=== PATIENT | male | born 1955 | race African-American/Black ===

== ENCOUNTER 2016-10-20 10:40 | Inpatient (IN) | payer MEDICARE, OTHER ==
[2016-10-20] VITALS (9 sets, daily range): BP systolic 136–194; BP diastolic 74–106; PULSE 50–74; RESP 14–20; TEMP 97.3–98.1; O2SAT 98–100
[~2016-10-20] VITALS: Ht 170.2 cm; Wt 67.2 kg
[~2016-10-20 10:40] MED LIST: FLAG500T PO; NIFE1TAB85 PO
--- NOTE | 2016-10-20 11:14 | PD ---
HPI Chief Complaint: Abnormal Results Time Seen by Provider: 11:14 Travel History International Travel<30 days: No Contact w/Intl Traveler<30days: No Traveled to known affect area: No History of Present Illness HPI 61-year-old male with history of hepatitis C, hypertension, renal disease, presents to the emergency department at the instruction of the "staff at the dialysis center" for evaluation. Patient is not currently a dialysis patient. States he has been increasingly tired lately and "just not right." He denies any recent illnesses, fever, chills. Denies a nausea or vomiting. Is concerned that he may have "prostate swelling." Continues to smoke a pack of tobacco cigarettes over 4 days. Reports marijuana use. Denies any alcohol consumption. Patient has no other symptoms to report at this time. PFSH Past Medical History Arthritis: Yes Anxiety: Yes Depression: Yes Heart Rhythm Problems: No Cancer: No Cardiovascular Problems: Yes (HTN) Chest Pain: Yes COPD: Yes Hepatitis: Yes (C) Hypertension: Yes Implanted Vascular Access Dvce: Yes Tetanus Vaccination: < 5 Years Influenza Vaccination: No ?: Not Past Surgical History AICD: No Arteriovenous Shunt: No Cardiac Surgery: No Joint Replacement: No Social History Alcohol Use: No Tobacco Use: Yes (4 CIGS/DAY) Substance Use: Yes (majuanna) Allergies-Medications (Allergen,Severity, Reaction): Coded Allergies: Aspirin (Unverified Allergy, Unknown, 06/02/16) HEP C Reported Meds & Prescriptions Reported Meds & Active Scripts Active Reported Hydrochlorothiazide 12.5 Mg Cap 12.5 Mg PO DAILY Ranitidine (Ranitidine HCl) 150 Mg Cap 150 Mg PO BID Atenolol 50 Mg Tab 50 Mg PO DAILY Clonidine (Clonidine HCl) 0.3 Mg Tab 0.3 Mg PO TID Review of Systems Except as stated in HPI: all other systems reviewed are Neg Physical Exam Narrative GENERAL: Well-nourished male patient, lying in bed, in no acute distress SKIN: Warm and dry. HEAD: Atraumatic. Normocephalic. EYES: Pupils equal and round. No scleral icterus. No injection or drainage. ENT: No nasal bleeding or discharge. Mucous membranes pink and moist. NECK: Trachea midline. No JVD. CARDIOVASCULAR: Regular rate and rhythm. No murmur appreciated. RESPIRATORY: No accessory muscle use. Clear to auscultation. Breath sounds equal bilaterally. GASTROINTESTINAL: Abdomen soft, non-tender, nondistended. Hepatic and splenic margins not palpable. MUSCULOSKELETAL: No obvious deformities. No clubbing. No cyanosis. No edema. NEUROLOGICAL: Awake and alert. No obvious cranial nerve deficits. Motor grossly within normal limits. Normal speech. PSYCHIATRIC: Appropriate mood and affect; insight and judgment normal. Data Data Last Documented VS Vital Signs Date Time Temp Pulse Resp B/P Pulse Ox O2 Delivery O2 Flow Rate FiO2 10/20/16 11:16 100 Room Air 10/20/16 10:57 67 18 146/92 10/20/16 10:43 98.1 Orders Electrocardiogram (10/20/16 11:12) Complete Blood Count With Diff (10/20/16 11:12) Comprehensive Metabolic Panel (10/20/16 11:12) Magnesium (Mg) (10/20/16 11:12) Prothrombin Time / Inr (Pt) (10/20/16 11:12) Act Partial Throm Time (Ptt) (10/20/16 11:12) Chest, Single Ap (10/20/16 11:12) Ecg Monitoring (10/20/16 11:12) Bilateral Bp Monitoring (10/20/16 11:12) Iv Access Insert/Monitor (10/20/16 11:12) Oximetry (10/20/16 11:12) Oxygen Administration (10/20/16 11:12) Sodium Chloride 0.9% Flush (Ns Flush) (10/20/16 11:15) Labs Laboratory Tests Test 10/20/16 11:16 White Blood Count 7.5 TH/MM3 Red Blood Count 4.14 MIL/MM3 Hemoglobin 12.8 GM/DL Hematocrit 39.1 % Mean Corpuscular Volume 94.6 FL Mean Corpuscular Hemoglobin 31.0 PG Mean Corpuscular Hemoglobin 32.8 % Concent Red Cell Distribution Width 14.4 % Platelet Count 185 TH/MM3 Mean Platelet Volume 8.7 FL Neutrophils (%) (Auto) 50.9 % Lymphocytes (%) (Auto) 33.7 % Monocytes (%) (Auto) 10.1 % Eosinophils (%) (Auto) 4.6 % Basophils (%) (Auto) 0.7 % Neutrophils # (Auto) 3.8 TH/MM3 Lymphocytes # (Auto) 2.5 TH/MM3 Monocytes # (Auto) 0.8 TH/MM3 Eosinophils # (Auto) 0.3 TH/MM3 Basophils # (Auto) 0.1 TH/MM3 CBC Comment DIFF FINAL Differential Comment Prothrombin Time 11.4 SEC Prothromb Time International 1.0 RATIO Ratio Activated Partial 29.9 SEC Thromboplast Time Sodium Level 139 MEQ/L Potassium Level 5.5 MEQ/L Chloride Level 110 MEQ/L Carbon Dioxide Level 17.2 MEQ/L Anion Gap 12 MEQ/L Blood Urea Nitrogen 100 MG/DL Creatinine 7.78 MG/DL Estimat Glomerular Filtration 9 ML/MIN Rate Random Glucose 105 MG/DL Calcium Level 8.5 MG/DL Magnesium Level 2.8 MG/DL Total Bilirubin 0.3 MG/DL Aspartate Amino Transf 36 U/L (AST/SGOT) Alanine Aminotransferase 36 U/L (ALT/SGPT) Alkaline Phosphatase 83 U/L Total Protein 8.1 GM/DL Albumin 3.8 GM/DL MDM Medical Decision Making Medical Screen Exam Complete: Yes Emergency Medical Condition: Yes Medical Record Reviewed: Yes Differential Diagnosis Electrolyte abnormality versus renal failure versus viral syndrome Narrative Course 61-year-old male presents to emergency department for evaluation. Patient appears without distress. His vital signs are stable. CBC is without acute concern. CMP is with creatinine of 7.78, BUN of 100, potassium is 5.5. I discussed the patient my attending physician Dr. Amaral. Patient will be admitted to the [facility] resident service. Diagnosis Primary Impression: Renal failure (ARF), acute on chronic Additional Impression: Hyperkalemia Condition: Stable DaxBridget BURDEN Oct 20, 2016 11:14
[2016-10-20] MEDS ORDERED: SODIUM CHLORIDE 0.9% FLUSH 5 ML FLUSH IVF PRN ×2 (11:15→17:30)
[2016-10-20] MEDS ORDERED: RANI150C PO (11:19)
[2016-10-20] MEDS ORDERED: ATEN50TA PO (11:19)
[2016-10-20] MEDS ORDERED: CLON0.3T PO (11:19)
[2016-10-20] MEDS ORDERED: HYDR12.57 PO (11:19)
[2016-10-20 11:35] LABS: AUTOMATED NEUTROPHIL # 3.8 TH/MM3 (1.8-7.7); BASOPHIL # 0.1 TH/MM3 (0-0.2); BASOPHIL % 0.7 % (0.0-2.0); EOSINOPHIL # 0.3 TH/MM3 (0-0.4); EOSINOPHIL % 4.6 % (0.0-4.0); HEMATOCRIT 39.1 % (39.0-51.0); HEMO FLAGS DIFF FINAL; LYMPH % 33.7 % (9.0-44.0); LYMPHOCYTE # 2.5 TH/MM3 (1.0-4.8); MEAN CELL VOLUME 94.6 FL (80.0-100.0); MEAN CORPUSCULAR HGB CONC 32.8 % (32.0-36.0); MONO % 10.1 % (0.0-8.0); NEUT % 50.9 % (16.0-70.0); PLATELET COUNT 185 TH/MM3 (150-450); RED BLOOD COUNT 4.14 MIL/MM3 (4.50-5.90); RED CELL DISTRIBUTION WIDTH 14.4 % (11.6-17.2); WHITE BLOOD COUNT 7.5 TH/MM3 (4.0-11.0)
[2016-10-20 11:40] LABS: APTT (PATIENT) 29.9 SEC (24.3-30.1); PROTHROMBIN TIME - PATIENT 11.4 SEC (9.8-11.6)
[2016-10-20 11:51] LABS: ANION GAP 12 MEQ/L (5-15); AST (GOT) 36 U/L (15-37); BICARBONATE 17.2 MEQ/L (21.0-32.0); BLOOD UREA NITROGEN 100 MG/DL (7-18); CHLORIDE 110 MEQ/L (98-107); GLOMERULAR FILTRATION RATE 9 ML/MIN (>89); MAGNESIUM 2.8 MG/DL (1.5-2.5); POTASSIUM 5.5 MEQ/L (3.5-5.1); SODIUM (NA) 139 MEQ/L (136-145)
[2016-10-20 11:54] LABS: ALKALINE PHOSPHATASE 83 U/L (45-117); ALT (GPT) 36 U/L (12-78); TOTAL BILIRUBIN ADULT 0.3 MG/DL (0.2-1.0)
--- NOTE | 2016-10-20 12:31 | RADRPT ---
EXAM DATE/TIME: 10/20/2016 11:47 [facility] COMPARISON: CHEST SINGLE AP, June 02, 2016, 13:45. INDICATIONS : Abnormal labs. Dizziness. MEDICAL HISTORY : Chronic obstructive pulmonary disease. Cardiovascular disease. SURGICAL HISTORY : None. ENCOUNTER: Initial ACUITY: 1 day PAIN SCORE: 0/10 LOCATION: Bilateral chest FINDINGS: A single view of the chest demonstrates minimal left perihilar air space disease characteristic of at electasis. There is no significant consolidation. There is no evidence of congestion. Heart and mediastinal structures appear normal. CONCLUSION: Mild left perihilar atelectasis with no other evidence of acute process. Alan Berry MD on October 20, 2016 at 12:28 Board Certified Radiologist. This report was verified electronically.
--- NOTE | 2016-10-20 13:46 | HHI.HP ---
HPI Service Family Medicine Primary Care Physician No Primary Care Physician Admission Diagnosis Acute on chronic renal failure; hyperkalemia Diagnoses: International Travel<30 Days: No Contact w/Intl Traveler<30days: No Known Affected Area: No History of Present Illness James is a 61-year-old black male, with a past medical history of uncontrolled hypertension, chronic kidney disease, and hepatitis C, presenting with 2 weeks of generalized malaise and weakness. He was seen today at a dialysis center and was urged to come to the emergency department, particularly regarding his worsening creatinine and elevated blood pressures. History of present illness: For the past 2 weeks he has been having High blood pressure as checked by his divinity professor. He does report an intermittent headache, that is relieved with Tylenol extra strength. In addition to dealing with elevated blood pressures, he has also been noticing that over the past 2 weeks he has been having dizziness that has got worse over the past 48 hours. He also reports nausea, vomiting, and not able to hold down solid foods until a couple of days ago. Approximately one week ago he also suffered from diarrhea persistently, however this has resolved. He reports losing 10-15 pounds over the past several weeks. (Kiko Vazquez MD R2) Review of Systems Constitutional: COMPLAINS OF: Fatigue, DENIES: Fever Eyes: COMPLAINS OF: Blurred vision, DENIES: Diplopia Respiratory: DENIES: Cough, Wheezing, Shortness of breath Cardiovascular: DENIES: Chest pain, Palpitations Gastrointestinal: DENIES: Abdominal pain, Bloody stools Genitourinary: DENIES: Urgency, Penile Discharge, Testicular Pain Musculoskeletal: COMPLAINS OF: Joint pain (knee pain Right side), DENIES: Muscle aches Integumentary: COMPLAINS OF: Pruritus Neurologic: COMPLAINS OF: Headache, DENIES: Seizures, Speech Problems, Tremor (Kiko Vazquez MD R2) Past Family Social History Past Medical History Hepatitis C, diagnoses in 2001, ? sexual transmission HTN dx in 2003 Chronic Kidney Disease Denies diabetes, denies OR, denies CVA, denies Seizures. Past Surgical History PSHx: Knee Left, traumatic (Kiko Vazquez MD R2) Allergies: Coded Allergies: Aspirin (Unverified Allergy, Unknown, 06/02/16) HEP C Family History FHx: Mother - , Diabetes, CAD / Heart disease - at age 78 y/o Father - , 101 y/o denies medical illness Siblings: no medical problems, denies cancer in his family. Social History Live in [place], born and raised Tobacco use - 1 pack every 3-4 days, since he was a teenager EtOH: 40 years ago, but since has stopped. Cocaine use - 20-30s, denies IVD use. Disabled back injury (Kiko Vazquez MD R2) Physical Exam Vital Signs Vital Signs Date Time Temp Pulse Resp B/P Pulse Ox O2 Delivery O2 Flow Rate FiO2 10/20/16 11:16 100 Room Air 10/20/16 11:16 100 Room Air 10/20/16 10:57 67 18 146/92 100 Room Air 10/20/16 10:57 67 18 100 Room Air 10/20/16 10:43 98.1 74 14 136/74 98 Physical Exam GENERAL: NAD, resting comfortably SKIN: No rashes, ecchymoses or lesions. HEAD: Atraumatic. Normocephalic. EYES: Pupils equal round and reactive. ENT: Nose without bleeding, purulent drainage or septal hematoma. NECK: Trachea midline. No JVD or lymphadenopathy. CARDIOVASCULAR: Regular rate and rhythm without murmurs, gallops, or rubs. RESPIRATORY: Clear to auscultation. GASTROINTESTINAL: Abdomen soft, non-tender, nondistended. MUSCULOSKELETAL: Extremities without clubbing, cyanosis, or edema. NEUROLOGICAL: Awake and alert. Cranial nerves II through XII intact. Motor and sensory grossly within normal limits. Laboratory Laboratory Tests Test 10/20/16 11:16 White Blood Count 7.5 Red Blood Count 4.14 Hemoglobin 12.8 Hematocrit 39.1 Mean Corpuscular Volume 94.6 Mean Corpuscular Hemoglobin 31.0 Mean Corpuscular Hemoglobin 32.8 Concent Red Cell Distribution Width 14.4 Platelet Count 185 Mean Platelet Volume 8.7 Neutrophils (%) (Auto) 50.9 Lymphocytes (%) (Auto) 33.7 Monocytes (%) (Auto) 10.1 Eosinophils (%) (Auto) 4.6 Basophils (%) (Auto) 0.7 Neutrophils # (Auto) 3.8 Lymphocytes # (Auto) 2.5 Monocytes # (Auto) 0.8 Eosinophils # (Auto) 0.3 Basophils # (Auto) 0.1 CBC Comment DIFF FINAL Differential Comment Prothrombin Time 11.4 Prothromb Time International 1.0 Ratio Activated Partial 29.9 Thromboplast Time Sodium Level 139 Potassium Level 5.5 Chloride Level 110 Carbon Dioxide Level 17.2 Anion Gap 12 Blood Urea Nitrogen 100 Creatinine 7.78 Estimat Glomerular Filtration 9 Rate Random Glucose 105 Calcium Level 8.5 Magnesium Level 2.8 Total Bilirubin 0.3 Aspartate Amino Transf 36 (AST/SGOT) Alanine Aminotransferase 36 (ALT/SGPT) Alkaline Phosphatase 83 Total Protein 8.1 Albumin 3.8 (Kiko Vazquez MD R2) Result Diagram: 10/20/16 1116 10/20/16 1116 Septic Shock Reassessment Heart: Regular rate and rhythm Lungs: Clear Skin: Warm Peripheral Pulses: Weak Right Radial Weak Left Radial (Kiko Vazquez MD R2) Assessment and Plan Assessment and Plan Mr. Ramirez is a pleasant 61-year-old black male, presenting with 2 weeks of generalized fatigue, elevated blood pressures, as well as worsening kidney function. He presented to the [place] emergency department at the recommendation of his divinity professor. Problem #1: Acute on chronic kidney failure. Creatinine on admission was 7.78, BUN of 100. Likely secondary to worsening nephrosclerosis as a result of his hypertension. May also be related to his chronic hepatitis C infection. Urinalysis did not show any signs of infection. Plan as follows: -Consult nephrology, appreciate their assistance. Patient may need hemodialysis. -Ultrasound of the KUB -Monitor ins and outs -Check hepatitis C RNA titer levels and genotype Problem #2: Uncontrolled hypertension Blood pressure of 179/106 on admission. -Continue with clonidine 0.3 mg 3 times a day, atenolol 50 mg daily, amlodipine 5 mg twice a day. -Hydralazine 10 mg by mouth when necessary systolic greater than 160, diastolic greater than 100. Problem #3: Hyperkalemia Potassium was 5.5 on admission. No EKG changes noted. Grossly unchanged since EKG in May 2016. No peak T waves or QRS widening. -We'll give 10 units of human regular insulin, with dextrose 50% 50 mL IV push, and 1 g of calcium gluconate to stabilize cardiac membrane. -Repeat BMP and EKG in 6 hours. Problem #4: Fluids electrolytes nutrition. -Fluids at the discretion of nephrology. -Electrolytes: Recheck BMP in the a.m. -Nutrition: Renal Diet. sdw Dr. Adilene Shaver Code Status Code. (Kiko Vazquez MD R2) Attending Attestation The patient has been seen and examined. The chart and all resident notes have been reviewed. I agree that inpatient care is appropriate and that a two midnight stay is expected for the reasons documented in the resident history and physical. I have discussed this with the resident and certify the resident s order for inpatient admission. (Shannan Shaver MD) Problem List: (1) GERD (gastroesophageal reflux disease) Status: Chronic (2) Hyperkalemia Status: Acute (3) HTN (hypertension) Status: Chronic (4) Renal failure (ARF), acute on chronic Status: Acute (Kiko Vazquez MD R2) Physician Certification 2 Midnight Certification Type: Admission for Inpatient Services Order for Inpatient Services The services are ordered in accordance with Medicare regulations or non- Medicare payer requirements, as applicable. In the case of services not specified as inpatient-only, they are appropriately provided as inpatient services in accordance with the 2-midnight benchmark. Estimated LOS (days): 3 3 days is the estimated time the patient will need to remain in the hospital, assuming treatment plan goals are met and no additional complications. Post-Hospital Plan: Home (Kiko Vazquez MD R2) Kiko Vazquez MD R2 Oct 20, 2016 13:45 Shannan Shaver MD Oct 20, 2016 21:21
[2016-10-20] MEDS ORDERED: INSULIN HUMAN REGULAR 1,000 UNITS/10 ML VIAL IV PUSH ONE (14:00)
[2016-10-20] MEDS ORDERED: DEXTROSE 50% IN WATER 50 ML VIAL(D50) IV PUSH ONE (14:00)
[2016-10-20] MEDS ORDERED: CALCIUM GLUCONATE 10% 1 GM/10 ML VIAL IV ONE (14:00)
[2016-10-20] MEDS ORDERED: hydrALAZINE HCL 10 MG TAB PO PRN (14:15)
--- NOTE | 2016-10-20 14:54 | PD.CONS ---
HPI Service Nephrology Consult Requested By Reason for Consult MANA on CKD Primary Care Physician No Primary Care Physician History of Present Illness This is a 61 y/o AAM pt who used to follow with Dr. Boogie of nephrology. Known CKD 5, he has not been started on dialysis as of now. He has not had renal follow up for years, has seen him in [facility]. He came in for fatigue, syncopal episode that sounds like he may have been orthostatic. He has had nausea and vomiting for several days, diarrhea the previous week. He is not demonstrating fluid overload. Labs on arrival with K 5.5, C02 17, Cr 7.78, GFR 9 , BUN 100. In 2015 his creatinine was 6.63 that improved to 5.53 at discharge. He is still making urine, it is pale yellow. We were consulted for renal management. Review of Systems Constitutional: COMPLAINS OF: Fatigue, Weight loss, DENIES: Fever Respiratory: COMPLAINS OF: Shortness of breath, DENIES: Cough Cardiovascular: DENIES: Chest pain, Lower Extremity Edema Past Family Social History Allergies: Coded Allergies: Aspirin (Unverified Allergy, Unknown, 06/02/16) HEP C Past Medical History HTN CKD 5, creatinine 5.53 in 2015 Hep C, untreated Past Surgical History l knee Reported Medications Hydrochlorothiazide 12.5 Mg Cap 12.5 Mg PO DAILY Ranitidine (Ranitidine HCl) 150 Mg Cap 150 Mg PO BID Atenolol 50 Mg Tab 50 Mg PO DAILY Clonidine (Clonidine HCl) 0.3 Mg Tab 0.3 Mg PO TID Active Ordered Medications Current Medications Medications (Trade) Dose Ordered Sig/Issac Route Start Time Stop Time Status Last Admin (NS Flush) 2 ml UNSCH PRN IVF 10/20/16 11:15 (Tenormin) 50 mg DAILY@18 PO 10/20/16 18:00 (Catapres) 0.3 mg TID PO 10/20/16 13:45 (Pepcid) 10 mg BID PO 10/20/16 21:00 (Apresoline) 10 mg Q6HR PRN PO 10/20/16 14:15 (Norvasc) 5 mg DAILY PO 10/21/16 09:00 Family History no hx of renal disorders Social History active smoker for several decades former heavy ETOH former cocaine use lives locally with family full code Physical Exam Vital Signs Vital Signs Date Time Temp Pulse Resp B/P Pulse Ox O2 Delivery O2 Flow Rate FiO2 10/20/16 14:00 50 18 179/106 100 Room Air 10/20/16 13:00 52 18 169/101 100 Room Air 10/20/16 11:16 100 Room Air 10/20/16 11:16 100 Room Air 10/20/16 10:57 67 18 146/92 100 Room Air 10/20/16 10:57 67 18 100 Room Air 10/20/16 10:43 98.1 74 14 136/74 98 Physical Exam male, awake/alert/oriented lungs clear S1/S2, regular rate/rhythm Abdomen soft, normal bowel sounds Extremities, no edema distal pulses intact Laboratory Laboratory Tests Test 10/20/16 11:16 White Blood Count 7.5 Red Blood Count 4.14 Hemoglobin 12.8 Hematocrit 39.1 Mean Corpuscular Volume 94.6 Mean Corpuscular Hemoglobin 31.0 Mean Corpuscular Hemoglobin 32.8 Concent Red Cell Distribution Width 14.4 Platelet Count 185 Mean Platelet Volume 8.7 Neutrophils (%) (Auto) 50.9 Lymphocytes (%) (Auto) 33.7 Monocytes (%) (Auto) 10.1 Eosinophils (%) (Auto) 4.6 Basophils (%) (Auto) 0.7 Neutrophils # (Auto) 3.8 Lymphocytes # (Auto) 2.5 Monocytes # (Auto) 0.8 Eosinophils # (Auto) 0.3 Basophils # (Auto) 0.1 CBC Comment DIFF FINAL Differential Comment Prothrombin Time 11.4 Prothromb Time International 1.0 Ratio Activated Partial 29.9 Thromboplast Time Sodium Level 139 Potassium Level 5.5 Chloride Level 110 Carbon Dioxide Level 17.2 Anion Gap 12 Blood Urea Nitrogen 100 Creatinine 7.78 Estimat Glomerular Filtration 9 Rate Random Glucose 105 Calcium Level 8.5 Magnesium Level 2.8 Total Bilirubin 0.3 Aspartate Amino Transf 36 (AST/SGOT) Alanine Aminotransferase 36 (ALT/SGPT) Alkaline Phosphatase 83 Total Protein 8.1 Albumin 3.8 Result Diagram: 10/20/16 1116 10/20/16 1116 Assessment and Plan Problem List: (1) Renal failure (ARF), acute on chronic Plan: Known advanced renal dysfunction, CKD 5 since 2014 he will need dialysis soon, but not emergently I think he has MANA due to dehydration, give IVF of 1/4 NS with 75 mEq sodium bicarbonate (65cc/hr) and reevaluate in the a.m. hyperkalemia treatment as below he is not fluid overloaded non oliguric, send UA for analysis obtain renal US avoid nephrotoxins renal panel in am he is open to the idea of dialysis, we discussed the indications (2) Hyperkalemia Plan: ordered calcium, insulin, dextrose follow up metabolic profile (3) HTN (hypertension) Plan: ordered medications, titrate to effectiveness Cristy Chang Oct 20, 2016 14:54
[2016-10-20] MEDS: cloNIDine HCL 0.3 MG TAB PO SCH ×2 (14:56→18:09)
[2016-10-20 15:27] LABS: BLOOD, URINE NEG (NEG); GLUCOSE,URINE NEG (NEG); KETONE, URINE NEG (NEG); NITRITE,URINE NEG (NEG); PH, URINE 5.5 (5.0-8.5); URINE COLOR LIGHT-YELLOW (YELLW/STRAW)
[2016-10-20 15:37] LABS: COMMENT (UR) CULT NOT INDICATED; CULTURE IF INDICATED CULT NOT INDICATED
[2016-10-20] MEDS: SODIUM CHLORIDE 23.4% INJ 38.5 MEQ, SODIUM BICARBONATE 8.4% INJ 75 MEQ in WATER STERILE... IV SCH (16:00)
--- NOTE | 2016-10-20 17:14 | PD.CONS ---
HPI Service Nephrology Consult Requested By Dr. Nuñez Reason for Consult ESRD Primary Care Physician No Primary Care Physician History of Present Illness 61 year old with CKD, Hypertension who has called our office as he was feeling sick, nausea, lack of appetite, he was directed to come to the Hospital as he was having uremic symptoms, he has high BUN/Creatinine, he has not been compliant and his blood pressure is high, he do not follow with diet and has a potassium of 5.5, creatinine 7.78 Review of Systems Constitutional: COMPLAINS OF: Fatigue Gastrointestinal: COMPLAINS OF: Nausea, Anorexia Past Family Social History Allergies: Coded Allergies: Aspirin (Unverified Allergy, Unknown, 06/02/16) HEP C Past Medical History Hypertension CKD Hepatitis C Work related injury right little finger with partial amputation Right back injury and disability Past Surgical History right hand surgery Reported Medications Reported Meds & Active Scripts Active Reported Ranitidine (Ranitidine HCl) 150 Mg Cap 150 Mg PO BID Atenolol 50 Mg Tab 50 Mg PO DAILY Clonidine (Clonidine HCl) 0.3 Mg Tab 0.3 Mg PO TID Active Ordered Medications Current Medications Medications (Trade) Dose Ordered Sig/Issac Route Start Time Stop Time Status Last Admin (NS Flush) 2 ml UNSCH PRN IVF 10/20/16 11:15 (Tenormin) 50 mg DAILY@18 PO 10/20/16 18:00 (Catapres) 0.3 mg TID PO 10/20/16 13:45 10/20/16 14:56 (Pepcid) 10 mg BID PO 10/20/16 21:00 (Apresoline) 10 mg Q6HR PRN PO 10/20/16 14:15 Amlodipine Besylate 5 mg 5 mg DAILY PO 10/21/16 09:00 (Sodium Chloride 23.4% Inj/Sodium Bicarbonate 8.4% Inj/Sterile Water For Inj) 1,084.625 ml @ 65 mls/hr [id number] IV 10/20/16 16:00 Family History Hypertension positive Social History smokes 1PPD every 3 to 4 days, denies ETOH Physical Exam Vital Signs Vital Signs Date Time Temp Pulse Resp B/P Pulse Ox O2 Delivery O2 Flow Rate FiO2 10/20/16 16:00 97.5 62 18 194/94 99 10/20/16 15:30 56 18 177/85 100 Room Air 10/20/16 14:00 50 18 179/106 100 Room Air 10/20/16 13:00 52 18 169/101 100 Room Air 10/20/16 11:16 100 Room Air 10/20/16 11:16 100 Room Air 10/20/16 10:57 67 18 146/92 100 Room Air 10/20/16 10:57 67 18 100 Room Air 10/20/16 10:43 98.1 74 14 136/74 98 Physical Exam GENERAL: Well-nourished, well-developed patient. SKIN: Warm and dry. HEAD: Normocephalic. EYES: No scleral icterus. No injection or drainage. NECK: Supple, trachea midline. No JVD or lymphadenopathy. CARDIOVASCULAR: Regular rate and rhythm without murmurs, gallops, or rubs. RESPIRATORY: Breath sounds equal bilaterally. No accessory muscle use. GASTROINTESTINAL: Abdomen soft, non-tender, nondistended. EXTREMITIES: No cyanosis, or edema. NEUROLOGICAL: Awake, alert, and oriented x 3. Non-focal. Laboratory Laboratory Tests Test 10/20/16 10/20/16 11:16 15:11 White Blood Count 7.5 Red Blood Count 4.14 Hemoglobin 12.8 Hematocrit 39.1 Mean Corpuscular Volume 94.6 Mean Corpuscular Hemoglobin 31.0 Mean Corpuscular Hemoglobin 32.8 Concent Red Cell Distribution Width 14.4 Platelet Count 185 Mean Platelet Volume 8.7 Neutrophils (%) (Auto) 50.9 Lymphocytes (%) (Auto) 33.7 Monocytes (%) (Auto) 10.1 Eosinophils (%) (Auto) 4.6 Basophils (%) (Auto) 0.7 Neutrophils # (Auto) 3.8 Lymphocytes # (Auto) 2.5 Monocytes # (Auto) 0.8 Eosinophils # (Auto) 0.3 Basophils # (Auto) 0.1 CBC Comment DIFF FINAL Differential Comment Prothrombin Time 11.4 Prothromb Time International 1.0 Ratio Activated Partial 29.9 Thromboplast Time Sodium Level 139 Potassium Level 5.5 Chloride Level 110 Carbon Dioxide Level 17.2 Anion Gap 12 Blood Urea Nitrogen 100 Creatinine 7.78 Estimat Glomerular Filtration 9 Rate Random Glucose 105 Calcium Level 8.5 Magnesium Level 2.8 Total Bilirubin 0.3 Aspartate Amino Transf 36 (AST/SGOT) Alanine Aminotransferase 36 (ALT/SGPT) Alkaline Phosphatase 83 Total Protein 8.1 Albumin 3.8 Urine Color LIGHT-YELLOW Urine Turbidity CLEAR Urine pH 5.5 Urine Specific [place] 1.010 Urine Protein 30 Urine Glucose (UA) NEG Urine Ketones NEG Urine Occult Blood NEG Urine Nitrite NEG Urine Bilirubin NEG Urine Urobilinogen LESS THAN 2.0 Urine Leukocyte Esterase NEG Urine RBC LESS THAN 1 Urine WBC 1 Microscopic Urinalysis Comment CULT NOT INDICATED Result Diagram: 10/20/16 1116 10/20/16 1116 Assessment and Plan Problem List: (1) Renal failure (ARF), acute on chronic Plan: Known advanced renal dysfunction, CKD 5 since 2014 he will need dialysis explained hemodialysis and PD he is agreeable to proceed will ask for Permcath and PD catheter (2) Hyperkalemia Plan: ordered calcium, insulin, dextrose follow up metabolic profile (3) HTN (hypertension) Plan: ordered medications, titrate to effectiveness Ned Sosa MD Oct 20, 2016 17:14
[2016-10-20] MEDS ORDERED: SODIUM CHLOR 0.9% 1000 ML INJ 1,000 ML IV PRN ×3 (17:20)
[2016-10-20] MEDS ORDERED: HEPARIN SODIUM - IV 10,000 UNITS/10 ML VIAL IVF PRN (17:30)
[2016-10-20] MEDS ORDERED: MANNITOL 12.5 GM/50 ML VIAL IV PRN (17:30)
[2016-10-20] MEDS ORDERED: cloNIDine HCL 0.1 MG TAB PO PRN (17:30)
[2016-10-20] MEDS ORDERED: ALBUMIN HUMAN 25% 25 GM/100 ML BAGP IV PRN (17:30)
[2016-10-20] MEDS ORDERED: ACETAMINOPHEN 325 MG TAB PO PRN (17:30)
[2016-10-20] MEDS ORDERED: NITROGLYCERIN 0.4 MG SL 25 TABS/BTL SL PRN (17:30)
[2016-10-20] MEDS ORDERED: ONDANSETRON HCL 4 MG/2 ML VIAL IV PRN (17:30)
[2016-10-20] MEDS ORDERED: diphenhydrAMINE HCL 25 MG CAP PO PRN (17:30)
[2016-10-20] MEDS ORDERED: GELATIN 12 MM/7 MM FOAM TOP PRN (17:30)
[2016-10-20] MEDS: ATENOLOL 50 MG TAB PO SCH (18:09)
[2016-10-20] MEDS: amLODIPine BESYLATE 5 MG TAB PO SCH ×2 (18:11→20:45)
--- NOTE | 2016-10-20 19:12 | HHI.FPPN ---
Subjective Subjective Patient seen and examined. Case reviewed and discussed Please refer to resident H&P for further details regarding HPI, ROS, PMH, SurgHx , FH and SocHx In summary, patient is a 61yoM with a history of kidney disease, HTN, Hep C presenting after a 1-2 week history of uncontrolled BP, increasing fatigue, and syncope at home. Patient also complains of diarrhea, nausea and vomiting which started about a week ago, but are now resolved. Patient reports that he had previously followed with Dr. Boogie, but hasn't seen him for several years. He is seen in his ED room, denies chest pain, shortness of breath. [facility] Objective Objective Last Impressions Chest X-Ray 10/20/16 1112 Signed Impressions: Service Date/Time: Thursday, October 20, 2016 11:47 - CONCLUSION: Mild left perihilar atelectasis with no other evidence of acute process. Alan Berry MD Laboratory Tests - Abnormals Test 10/20/16 10/20/16 11:16 15:11 Red Blood Count 4.14 MIL/MM3 Hemoglobin 12.8 GM/DL Monocytes (%) (Auto) 10.1 % Eosinophils (%) (Auto) 4.6 % Potassium Level 5.5 MEQ/L Chloride Level 110 MEQ/L Carbon Dioxide Level 17.2 MEQ/L Blood Urea Nitrogen 100 MG/DL Creatinine 7.78 MG/DL Estimat Glomerular Filtration 9 ML/MIN Rate Magnesium Level 2.8 MG/DL Urine Protein 30 mg/dL Vital Signs 10/20/16 10/20/16 10/20/16 10/20/16 10:43 10:57 10:57 11:16 Temp 98.1 Pulse 74 67 67 Resp 18 B/P 136/74 146/92 Pulse Ox 98 100 100 100 O2 Delivery Room Air Room Air Room Air 10/20/16 10/20/16 10/20/16 10/20/16 11:16 13:00 14:00 15:30 Pulse 52 50 56 Resp 18 18 18 B/P 169/101 179/106 177/85 Pulse Ox 100 100 100 100 O2 Delivery Room Air Room Air Room Air Room Air 10/20/16 10/20/16 16:00 18:03 Temp 97.5 Pulse 62 Resp 18 B/P 194/94 Pulse Ox 99 99 O2 Delivery Nasal Cannula O2 Flow Rate 2.00 Physical exam GENERAL: Thin male. NAD, sitting in bed SKIN: Warm and dry. No rashes. HEAD: Normocephalic. AT EYES: No scleral icterus. No injection or drainage. ENT: OP clear. MM slightly dry NECK: Supple, trachea midline. No JVD or lymphadenopathy. CARDIOVASCULAR: Regular rate and rhythm without audible murmurs, gallops, or rubs. RESPIRATORY: Breath sounds equal and clear to auscultation bilaterally. No accessory muscle use. GASTROINTESTINAL: Abdomen soft, non-tender, nondistended. MUSCULOSKELETAL: No cyanosis, or edema. No calf tenderness BACK: Nontender without obvious deformity. No CVA tenderness. NEURO: Awake and alert. Normal speech. CN grossly intact. MAEW. Assessment Assessment 61yoM admitted with: Acute on chronic kidney disease, CKD stage 5/end-stage Hyperkalemia Hep C HTN, uncontrolled Non-adherence Syncope PLAN PLAN Renal consult- appreciate coordination of dialysis Monitor BMP, electrolytes Check mag, phos Syncopal work-up with 2D echo, carotids Titrate anti-hypertensives Strict Is/Os Hep profile with RNA quant, genotyping Resume home meds as appropriate Patient seen and examined. Case reviewed and discussed Agree with plan of care as discussed with me and documented in the resident note. Shannna Shaver MD Oct 20, 2016 19:12
[2016-10-20 20:05] LABS: BICARBONATE 18.5 MEQ/L (21.0-32.0)
[2016-10-20] MEDS: FAMOTIDINE 20 MG TAB PO SCH (20:45)
--- NOTE | 2016-10-20 21:15 | RADRPT ---
EXAM DATE/TIME: 10/20/2016 18:55 [facility] COMPARISON: No previous studies available for comparison. INDICATIONS : Increased BUN/creatinine. MEDICAL HISTORY : Hypertension. Chronic obstructive pulmonary disease. Arthritis. Chest pain. Hep C. Pruritis. Dyspnea. Depression. Anxiety. Substance use. SURGICAL HISTORY : Orthopedic surgery, left knee. Blood transfusions. ENCOUNTER: Initial ACUITY: 1 day PAIN SCORE: 0/10 LOCATION: Bilateral flank MEASUREMENTS: RIGHT KIDNEY: 7.3 x 4.4 x 3.9 cm LEFT KIDNEY: 7.3 x 4.6 x 4.4 cm FINDINGS: RIGHT KIDNEY: The right kidney is small and atrophic in appearance with diffuse increased echogenicity. There is a small cyst in the central kidney measuring 6 x 5 x 5 mm. There is no solid mass, calculi or obstructi on. LEFT KIDNEY: The left kidney is small and atrophic in appearance with diffuse increased echogenicity. There is a s mall cyst centrally located measuring 1.9-1.9-1.7 cm. There is no solid mass, calculi or obstruction. BLADDER: Within normal limits given the degree of distension. At the upper limits of normal in size. CONCLUSION: The kidneys are small and increased in echogenicity consistent with medical renal dis ease. There is no hydronephrosis. There are small cysts. Saud Kowalski MD on October 20, 2016 at 21:12 Board Certified Radiologist. This report was verified electronically.
[2016-10-20] MEDS ORDERED: HEPARIN SODIUM - SQ 10,000 UNITS/ML VIAL SQ SCH (21:30)
[2016-10-20] MEDS ORDERED: cloNIDine HCL 0.1 MG TAB PO SCH (22:00)
[2016-10-21] VITALS (14 sets, daily range): BP systolic 112–151; BP diastolic 66–88; PULSE 54–68; RESP 16–18; TEMP 97.6–98.4; O2SAT 93–100
[2016-10-21] MEDS ORDERED: ceFAZolin 2 GM PREMIX 50 ML IV SCH (07:45)
[2016-10-21] MEDS ORDERED: VANCOMYCIN INJ 1,000 MG in SODIUM CHLOR 0.9% 250 ML INJ 250 ML IV SCH (07:45)
[2016-10-21] MEDS ORDERED: amLODIPine BESYLATE 5 MG TAB PO SCH (09:00)
[2016-10-21] MEDS ORDERED: HYDROCHLOROTHIAZIDE 12.5 MG CAP PO SCH (09:00)
[2016-10-21] MEDS: cloNIDine HCL 0.3 MG TAB PO SCH ×3 (09:06→19:16)
[2016-10-21] MEDS: FAMOTIDINE 20 MG TAB PO SCH ×2 (09:06→21:01)
[2016-10-21] MEDS: amLODIPine BESYLATE 5 MG TAB PO SCH ×2 (09:06→21:01)
[2016-10-21] MEDS: SODIUM CHLORIDE 23.4% INJ 38.5 MEQ, SODIUM BICARBONATE 8.4% INJ 75 MEQ in WATER STERILE... IV SCH (09:08)
[2016-10-21 09:30] LABS: BICARBONATE 17.1 MEQ/L (21.0-32.0); POTASSIUM 4.9 MEQ/L (3.5-5.1)
[2016-10-21 10:09] LABS: HEMATOCRIT 34.8 % (39.0-51.0); MEAN CORPUSCULAR HEMOGLOBIN 30.8 PG (27.0-34.0); MEAN CORPUSCULAR HGB CONC 33.1 % (32.0-36.0); PLATELET COUNT 155 TH/MM3 (150-450); RED BLOOD COUNT 3.74 MIL/MM3 (4.50-5.90); RED CELL DISTRIBUTION WIDTH 13.6 % (11.6-17.2); WHITE BLOOD COUNT 6.2 TH/MM3 (4.0-11.0)
[2016-10-21 10:16] LABS: HEMO FLAGS AUTO DIFF
--- NOTE | 2016-10-21 10:42 | HHI.FPPN ---
Subjective Remarks Patient states that he feels better today. He no longer has weakness and has been out of bed with no fall. No dizziness, h/a, sob. Good urine output. ( Katheryn Wells MD) Objective Vitals Vital Signs Date Time Temp Pulse Resp B/P Pulse Ox O2 Delivery O2 Flow Rate FiO2 10/21/16 09:59 Room Air 10/21/16 08:00 98.2 65 18 147/88 100 10/21/16 04:00 98.4 67 18 115/75 100 10/21/16 03:13 54 10/21/16 00:00 97.7 66 18 120/69 99 10/20/16 20:45 Room Air 10/20/16 20:00 97.3 57 20 183/92 100 160/100 10/20/16 18:03 99 Nasal Cannula 2.00 10/20/16 17:15 Room Air 10/20/16 16:00 97.5 62 18 194/94 99 10/20/16 15:30 56 18 177/85 100 Room Air 10/20/16 14:00 50 18 179/106 100 Room Air 10/20/16 13:00 52 18 169/101 100 Room Air 10/20/16 11:16 100 Room Air 10/20/16 11:16 100 Room Air 10/20/16 10:57 67 18 146/92 100 Room Air 10/20/16 10:57 67 18 100 Room Air 10/20/16 10:43 98.1 74 14 136/74 98 I/O 10/20/16 10/20/16 10/20/16 10/21/16 10/21/16 10/21/16 07:00 15:00 23:00 07:00 15:00 23:00 Intake Total 240 ml 240 ml Balance 240 ml 240 ml Intake Oral 240 ml 240 ml # Voids 1 2 # Bowel Movements 0 0 (Katheryn Wells MD) Result Diagram: 10/21/16 0950 10/21/16 0804 Objective Remarks GENERAL: AA male, in NAD. SKIN: Warm and dry. HEAD: Atraumatic. Normocephalic. EYES: Pupils equal and round. No scleral icterus. No injection or drainage. ENT: No nasal bleeding or discharge. Mucous membranes pink and moist. NECK: Trachea midline. No JVD. CARDIOVASCULAR: Regular rate and rhythm. RESPIRATORY: No accessory muscle use. Clear to auscultation. Breath sounds equal bilaterally. GASTROINTESTINAL: Abdomen soft, non-tender, nondistended. Hepatic and splenic margins not palpable. MUSCULOSKELETAL: Extremities without clubbing, cyanosis, or edema. R 5th digit amputated. NEUROLOGICAL: Awake and alert. No obvious cranial nerve deficits. Motor grossly within normal limits. Five out of 5 muscle strength in the arms and legs. Normal speech. PSYCHIATRIC: Appropriate mood and affect; insight and judgment normal. (Katheryn Wells MD) Urinary Catheter: No (Katheryn Wells MD) Vascular Central Line Catheter: No (Katheryn Wells MD) A/P Assessment and Plan Mr. Ramirez is a pleasant 61-year-old black male, presenting with 2 weeks of generalized fatigue, elevated blood pressures, as well as worsening kidney function. 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 NPO Problem #1: Acute on chronic kidney failure. GFR on admission 9, unchanged. Likely secondary to worsening nephrosclerosis as a result of his hypertension. May also be related to his chronic hepatitis C infection. Urinalysis did not show any signs of infection. -Consult nephrology, appreciate their assistance. Hemodialysis explained to patient. Patient to have catheter placed today -Ultrasound of the KUB: small and echogenic consistent with medical renal disease -Monitor ins and outs -Check hepatitis C RNA titer levels and genotype Problem #2: Uncontrolled hypertension Blood pressure of 179/106 on admission. Now wnl. Concern for cardiovascular cause of falls prior to hospitalization. -Continue with clonidine 0.3 mg 3 times a day, atenolol 50 mg daily, amlodipine 5 mg twice a day. -Hydralazine 10 mg by mouth when necessary systolic greater than 160, diastolic greater than 100. -Echocardiogram -US Carotids Problem #3: Hyperkalemia. Resolved. Potassium was 5.5 on admission. Now wnl. Problem #4: Fluids electrolytes nutrition. -Fluids at the discretion of nephrology. -Electrolytes: Recheck BMP in the a.m. -Nutrition: Renal Diet. sdw Drs. Adilene Wells, Taylor, and Chhaya Discharge Planning pending set up for outpt dialysis (Katheryn Wells MD) Attending Attestation Patient seen and examined. Case reviewed and discussed. Agree with plan of care as discussed with me and documented in the resident note. (Shannan Shaver MD) Problem List: (1) GERD (gastroesophageal reflux disease) Status: Chronic (2) Hyperkalemia Status: Acute (3) HTN (hypertension) Status: Chronic (4) Renal failure (ARF), acute on chronic Status: Acute (Katheryn Wells MD) Katheryn Wells MD Oct 21, 2016 10:42 Shannan Shaver MD Oct 23, 2016 17:40
[2016-10-21 11:49] LABS: BASOPHILS 1 % (0-2); EOSINOPHILS 3 % (0-4); NEUTROPHIL # MANUAL DIFF 3.5 TH/MM3 (1.8-7.7); PLATELET ESTIMATE SMEAR NORMAL (NORMAL); PLATELET MORPHOLOGY NORMAL (NORMAL); POLYS (SEG NEUTROPHILS) 56 % (16-70); WBC DIFF SAMPLE 100
[2016-10-21 11:50] LABS: SCAN/DIFF FINAL DIFF MANUAL
[2016-10-21] MEDS ORDERED: MIDAZOLAM HCL 5 MG/5 ML VIAL ONE (13:35)
[2016-10-21] MEDS ORDERED: fentaNYL CITRATE 250 MCG/5 ML AMP ONE (13:35)
[2016-10-21] MEDS ORDERED: LIDOCAINE 1%/EPINEPHrine 1:100,000 SOLN 20 ML VIAL ONE (13:43)
--- NOTE | 2016-10-21 13:49 | PD.CONS ---
cc: Trey Willis MD HPI Service General surgery Consult Requested By Dr. Sosa Reason for Consult Peritoneal dialysis catheter placement Primary Care Physician No Primary Care Physician History of Present Illness This is a 61 year old male who has had chronic kidney disease for many years which has now progressed to end stage now in need of hemodialysis. Nephrology was consulted and discussed options of traditional hemodialysis vs peritoneal dialysis. The patient has decided that peritoneal dialysis will be the best option for him. A General Surgery consultation has been requested for placement of peritoneal dialysis catheter. Review of Systems Constitutional: COMPLAINS OF: Change in appetite, DENIES: Fatigue, Fever Endocrine: DENIES: Polydipsia, Polyuria, Polyphagia Eyes: DENIES: Blurred vision, Diplopia Ears, nose, mouth, throat: DENIES: Hearing loss, Vertigo Respiratory: DENIES: Apneas, Cough, Snoring Cardiovascular: DENIES: Chest pain, Palpitations Gastrointestinal: COMPLAINS OF: Nausea, DENIES: Abdominal pain Genitourinary: DENIES: Dysuria Musculoskeletal: COMPLAINS OF: Muscle aches Integumentary: DENIES: Abnormal pigmentation Hematologic/lymphatic: DENIES: Bruising Immunologic/allergic: DENIES: Eczema Neurologic: DENIES: Headache, Localized weakness Psychiatric: DENIES: Confusion, Mood changes, Depression Past Family Social History Past Medical History CKD Hypertension Hepatitis C Past Surgical History Orthopedic surgery on left knee Reported Medications See Chart Allergies: Coded Allergies: Aspirin (Unverified Allergy, Unknown, 06/02/16) HEP C Active Ordered Medications Current Medications Medications (Trade) Dose Ordered Sig/Issac Route Start Time Stop Time Status Last Admin (NS Flush) 2 ml UNSCH PRN IVF 10/20/16 11:15 (Tenormin) 50 mg DAILY@18 PO 10/20/16 18:00 10/20/16 18:09 (Catapres) 0.3 mg TID PO 10/20/16 13:45 10/21/16 11:48 (Pepcid) 10 mg BID PO 10/20/16 21:00 10/21/16 09:06 Hydralazine HCl 10 mg 10 mg Q6HR PRN PO 10/20/16 14:15 10/20/16 20:45 (Sodium Chloride 23.4% Inj/Sodium Bicarbonate 8.4% Inj/Sterile Water For Inj) 1,084.625 ml @ 65 mls/hr [id number] IV 10/20/16 16:00 10/21/16 09:08 Amlodipine Besylate 5 mg 5 mg BID PO 10/20/16 18:30 10/21/16 09:06 (NS 1000 ml Inj) 1,000 ml @ 0 mls/hr Q0M PRN IV 10/20/16 17:20 Heparin Sodium (Porcine) 8000 units 8,000 units UNSCH PRN IVF 10/20/16 17:30 Sodium Chloride 1,000 ml @ 200 mls/hr Q5H PRN IV 10/20/16 17:20 (NS 1000 ml Inj) 1,000 ml @ 0 mls/hr Q0M PRN IV 10/20/16 17:20 (Mannitol Inj) 12.5 gm UNSCH PRN IV 10/20/16 17:30 (Albumin 25% Inj) 25 gm UNSCH PRN IV 10/20/16 17:30 (NS Flush) 5 ml UNSCH PRN IVF 10/20/16 17:30 (Heparin Inj) UNSCH PRN .XX 10/20/16 17:30 (Gentamicin (Dialysis) Inj) 20 mg UNSCH PRN IV 10/20/16 17:30 (Zofran Inj) 4 mg UNSCH PRN IV 10/20/16 17:30 (Tylenol) 650 mg UNSCH PRN PO 10/20/16 17:30 (Benadryl) 25 mg UNSCH PRN PO 10/20/16 17:30 (Nitrostat Sl) 0.4 mg UNSCH PRN SL 10/20/16 17:30 (Catapres) 0.1 mg UNSCH PRN PO 10/20/16 17:30 (Gelfoam 12 Mm/7 Mm Top) 1 foam UNSCH PRN TOP 10/20/16 17:30 (Heparin Inj) 5,000 units Q12HR SQ 10/20/16 21:30 Hold 10/20/16 23:06 Family History Noncontributory Social History + Smoking ---1 pack every 3-4 days Denies ETOH use--- prior use <40 years ago Denies illicit drug use Physical Exam Vital Signs Vital Signs Date Time Temp Pulse Resp B/P Pulse Ox O2 Delivery O2 Flow Rate FiO2 10/21/16 09:59 Room Air 10/21/16 08:00 98.2 65 18 147/88 100 10/21/16 04:00 98.4 67 18 115/75 100 10/21/16 03:13 54 10/21/16 00:00 97.7 66 18 120/69 99 10/20/16 20:45 Room Air 10/20/16 20:00 97.3 57 20 183/92 100 160/100 10/20/16 18:03 99 Nasal Cannula 2.00 10/20/16 17:15 Room Air 10/20/16 16:00 97.5 62 18 194/94 99 10/20/16 15:30 56 18 177/85 100 Room Air 10/20/16 14:00 50 18 179/106 100 Room Air Physical Exam GENERAL: Pleasant 61 year old male resting in bed SKIN: Warm and dry. HEAD: Atraumatic. Normocephalic. EYES: Pupils equal and round. No scleral icterus. No injection or drainage. ENT: No nasal bleeding or discharge. Mucous membranes pink and moist. NECK: Trachea midline. CARDIOVASCULAR: Regular rate and rhythm. RESPIRATORY: No accessory muscle use. Clear to auscultation. Breath sounds equal bilaterally. GASTROINTESTINAL: Abdomen soft, non-tender, nondistended. No visible scars. MUSCULOSKELETAL: Extremities without clubbing, cyanosis, or edema. No obvious deformities. NEUROLOGICAL: Awake and alert. No obvious cranial nerve deficits. Motor grossly within normal limits. Five out of 5 muscle strength in the arms and legs. Normal speech. PSYCHIATRIC: Appropriate mood and affect; insight and judgment normal. Laboratory Laboratory Tests Test 10/20/16 10/20/16 10/21/16 10/21/16 15:11 18:46 08:04 09:50 Urine Color LIGHT-YELLOW Urine Turbidity CLEAR Urine pH 5.5 Urine Specific [place] 1.010 Urine Protein 30 Urine Glucose (UA) NEG Urine Ketones NEG Urine Occult Blood NEG Urine Nitrite NEG Urine Bilirubin NEG Urine Urobilinogen LESS THAN 2.0 Urine Leukocyte Esterase NEG Urine RBC LESS THAN 1 Urine WBC 1 Microscopic Urinalysis Comment CULT NOT INDICATED Sodium Level 138 138 Potassium Level 5.0 4.9 Chloride Level 110 110 Carbon Dioxide Level 18.5 17.1 Anion Gap 10 11 Blood Urea Nitrogen 103 101 Creatinine 7.86 7.40 Estimat Glomerular Filtration 8 9 Rate Random Glucose 130 98 Calcium Level 8.6 8.0 Hepatitis A IgM Antibody NEGATIVE Hepatitis B Surface Antigen NEGATIVE Hepatitis B Core IgM Antibody NEGATIVE Hepatitis C Antibody REACTIVE Phosphorus Level 5.7 White Blood Count 6.2 Red Blood Count 3.74 Hemoglobin 11.5 Hematocrit 34.8 Mean Corpuscular Volume 93.0 Mean Corpuscular Hemoglobin 30.8 Mean Corpuscular Hemoglobin 33.1 Concent Red Cell Distribution Width 13.6 Platelet Count 155 Mean Platelet Volume 8.5 Neutrophils (%) (Auto) Lymphocytes (%) (Auto) Monocytes (%) (Auto) Eosinophils (%) (Auto) Basophils (%) (Auto) Neutrophils # (Auto) Lymphocytes # (Auto) Monocytes # (Auto) Eosinophils # (Auto) Basophils # (Auto) CBC Comment AUTO DIFF Differential Total Cells 100 Counted Neutrophils % (Manual) 56 Lymphocytes % 31 Monocytes % 9 Eosinophils % 3 Basophils % 1 Neutrophils # (Manual) 3.5 Differential Comment FINAL DIFF MANUAL Platelet Estimate NORMAL Platelet Morphology Comment NORMAL Red Cell Morphology Comment NORMAL Result Diagram: 10/26/16 0655 10/26/16 0655 Assessment and Plan Assessment and Plan 61 year old male with CKD stage 4 now in need to hemodialysis; in need to placement of peritoneal dialysis catheter -s/p IR placing Permacath -HD started -Patient prefers to have PD cath placement done in the upcoming weeks -Will have him follow up in the office and arrange for PD cath to be placed at that time - clear for DC -Follow up with Dr. Willis Discussed Condition With Dr. Lazaro Ramirez Attending Statement kidney failure, in need of dialysis discussed with patient PD cath placement will plan for OR this admission Attestation The exam, history, and the medical decision-making described in the above note were completed with the assistance of the mid-level provider. I reviewed and agree with the findings presented. I attest that I had a [id number] encounter with the patient on the same day, and personally performed and documented my assessment and findings in the medical record. Keren Shen Oct 21, 2016 13:49 Trey Willis MD Oct 26, 2016 21:26
--- NOTE | 2016-10-21 14:10 | PD.RAD ---
Post Procedure Progress Note Pre Procedure Diagnosis: (1) Renal failure (ARF), acute on chronic Post Procedure Diagnosis: (1) Renal failure (ARF), acute on chronic Procedure Date: Oct 21, 2016 Supervising Radiologist: Satinder Khanna JR Proceduralist/Assist: Teresa Fisher, RT(R), Amie Wasserman RT(R)() Anesthesia: Conscious Sedation Plan of Activity Patient to Unit: ROPU Patient Condition: Good See PACS Report for procedural detail/treatment Central Venous Access Device Procedure 1 Right Internal Jugular Hemodialysis Catheter Tunneled Placement dual lumen German: 15 Findings: Permcath in good position and functions well. OK to use. Plan Remove suture at base of neck and holding catheter in place in 2-3 weeks. Jr Jey.,Satinder Sifuentes MD Oct 21, 2016 14:10
[2016-10-21] MEDS ORDERED: SODIUM CHLORIDE 0.9% FLUSH 5 ML FLUSH IVF PRN (14:15)
[2016-10-21] MEDS ORDERED: HEPARIN SODIUM - IV 10,000 UNITS/10 ML VIAL IVF PRN (14:15)
--- NOTE | 2016-10-21 14:36 | RADRPT ---
EXAM DATE/TIME: 10/21/2016 12:33 [facility] COMPARISON: No previous studies available for comparison. INDICATIONS : Patient with chronic kidney disease in need of permcath for dialysis. MEDICAL HISTORY : Chronic kidney disease HTN Hep C Right back injurty and disability SURGICAL HISTORY : Left knee, traumatic Right 5th digit partial amputation ENCOUNTER: Initial ACUITY: >1 year PAIN SCORE: 0/10 FLUORO TIME: 0.7 minutes IMAGE SERIES: 0 SEDATION TIME: 30 minutes ACCESS: Right internal jugular vein SEDATION: 1.) 1.5 mg midazolam (Versed) IV 2.) 75 mcg fentanyl (Sublimaze) IV Prophylactic antibiotics were administered with appropriate pre-procedure timing. Vancomycin within 2 hours of procedure, Ancef (or alternative) within 1 hour of procedure. DEVICE: 1. 15 Icelandic dual lumen 23 cm Abdalla II Plus catheter PROCEDURE : 1. Ultrasound-guided venipuncture. 2. PermaCath placement. 3. Conscious sedation with continuous EKG and oximetry monitoring. The risks, benefits and alternatives to the procedure were explained and verbal and written consent w as obtained. The site was prepped in sterile fashion. Full sterile technique was used, including ca p, mask, sterile gloves and gown and a large sterile sheet. Hand hygiene and 2% chlorhexidine and/or betadine/alcohol prep was utilized per protocol for cutaneous antisepsis. The skin and subcutaneous tissues were infiltrated with local anesthetic solution. With ultrasound and fluoroscopic guidance a dermatotomy was created over the prescribed vein. A micr opuncture set was used to access the targeted vein and serial dilatation was performed to accept the prescribed length catheter. A subcutaneous tunnel was created in a retrograde fashion the catheter w as pulled through the tunnel. The catheter was flushed and assembled and locked with heparin. The c atheter was sutured in place. Conscious sedation was performed with the prescribed dosages and duration as above in the presence of an independent trained radiology nurse to assist in the monitoring of the patient. EKG and oximetry remained stable throughout the procedure. The patient tolerated the procedure well and there were n o complications. The patient was sent to post anesthesia recovery in stable condition. CONCLUSION: Uncomplicated PermaCath placement as above. Satinder Khanna Jr., MD on October 21, 2016 at 14:31 Board Certified Radiologist. This report was verified electronically.
--- NOTE | 2016-10-21 17:34 | HHI.NPPN ---
Subjective History of Present Illness 61 year old with CKD 5 now has ESRD started on hemodialysis Review of Systems General Constitutional: Fatigue Objective Data Data 10/20/16 10/21/16 19:00 07:00 Intake Total 480 ml Balance 480 ml Intake Oral 480 ml # Voids 3 # Bowel Movements 0 Vital Signs Date Time Temp Pulse Resp B/P Pulse Ox O2 Delivery O2 Flow Rate FiO2 10/21/16 16:00 58 135/88 95 10/21/16 15:30 60 16 128/66 96 10/21/16 15:00 61 16 115/82 94 10/21/16 14:30 62 18 112/82 93 10/21/16 14:15 97.8 67 16 114/73 93 10/21/16 12:00 97.6 62 18 139/78 100 10/21/16 09:59 Room Air 10/21/16 08:00 98.2 65 18 147/88 100 10/21/16 04:00 98.4 67 18 115/75 100 10/21/16 03:13 54 10/21/16 00:00 97.7 66 18 120/69 99 10/20/16 20:45 Room Air 10/20/16 20:00 97.3 57 20 183/92 100 160/100 10/20/16 18:03 99 Nasal Cannula 2.00 -: 10/21/16 0950 10/21/16 0804 Physical Exam General Appearance: Well Developed, Well Nourished Eyes Eye Exam: Pupils Equal Neck Neck Exam: Neck Supple Pulmonary Resp Exam: Clear Bilaterally, Breath Sounds Equal Cardiology CV Exam: Regular, Good Perfusion Gastrointestinal/Abdomen GI Exam: Soft, Non-Tender, Bowel Sounds Present Integumentary Skin Exam: Clear Extremeties Extremities Exam: No Edema Neurologic Neuro Exam: Alert, Awake Assessment/Plan Problem List: (1) ESRD (end stage renal disease) Plan: he is seen during dialysis tolerating it well continue supportive care Tolerating it well next HD tomorrow Surgery to see him for PD catheter insertion start PhosLo check PTH/Vit D (2) Renal failure (ARF), acute on chronic Plan: Known advanced renal dysfunction, CKD 5 (3) Hyperkalemia Plan: resolved (4) HTN (hypertension) Plan: BP is better Ned Sosa MD Oct 21, 2016 17:33
[2016-10-21] MEDS: GENTAMICIN SULFATE (DIALYSIS USE ONLY) 20 MG/2 ML VIAL IV PRN (18:30)
[2016-10-21] MEDS: ATENOLOL 50 MG TAB PO SCH (19:17)
[2016-10-21] MEDS: CALCIUM ACETATE 667 MG CAP PO SCH (19:17)
[2016-10-21] MEDS ORDERED: ACETAMINOPHEN/HYDROcodone 325 MG/5 MG TAB PO PRN (21:00)
[2016-10-22] VITALS (10 sets, daily range): BP systolic 101–129; BP diastolic 68–84; PULSE 63–87; RESP 16–20; TEMP 98–99.1; O2SAT 98–100
[2016-10-22] MEDS: SODIUM CHLORIDE 23.4% INJ 38.5 MEQ, SODIUM BICARBONATE 8.4% INJ 75 MEQ in WATER STERILE... IV SCH ×2 (01:24→12:19)
--- NOTE | 2016-10-22 01:32 | RADRPT ---
EXAM DATE/TIME: 10/21/2016 23:18 [facility] COMPARISON: US CAROTID ARTERIES, October 31, 2014, 8:49. INDICATIONS : Weakness. MEDICAL HISTORY : Hypertension. Chronic obstructive pulmonary disease. Arthritis. Migraines. Chest pain. Hep C. Pruriti s. Renal failure. Dialysis. SURGICAL HISTORY : Orthopedic surgery, left knee. ENCOUNTER: Initial ACUITY: 1 day PAIN SCORE: 3/10 LOCATION: Bilateral neck PEAK SYSTOLIC VELOCITIES (cm/sec): ICA/CCA RATIO: Right: 0.8 Left: 0.8 ICA: Right: 75 Left: 59 CCA: Right: 91 Left: 76 ECA: Right: 104 Left: 101 VERTEBRAL: Right: 46 antegrade Left: 35 antegrade Elevated flow velocities and ICA/CCA ratios have been found to correlate with increased degrees of vessel stenosis, calculated as percentage of diameter relative to a normal segment of distal ICA/CCA FINDINGS: RIGHT CAROTID: No significant stenosis is visualized. The waveforms are within normal limits. LEFT CAROTID: No significant stenosis is visualized. The waveforms are within normal limits. VERTEBRAL ARTERIES: Antegrade flow is seen in both vertebral arteries. MISCELLANEOUS: None. CONCLUSION: Mild calcified and noncalcified plaque at the carotid bulbs. No evidence of hemodynamically significa nt carotid stenosis. Aunpam Antoine MD on October 22, 2016 at 1:30 Board Certified Radiologist. This report was verified electronically.
[2016-10-22 07:08] LABS: HEMATOCRIT 35.5 % (39.0-51.0); MEAN CELL VOLUME 91.4 FL (80.0-100.0); MEAN CORPUSCULAR HEMOGLOBIN 31.4 PG (27.0-34.0); MEAN CORPUSCULAR HGB CONC 34.3 % (32.0-36.0); PLATELET COUNT 158 TH/MM3 (150-450); RED BLOOD COUNT 3.88 MIL/MM3 (4.50-5.90); RED CELL DISTRIBUTION WIDTH 14.2 % (11.6-17.2); REVIEW FLAG FINAL; WHITE BLOOD COUNT 6.6 TH/MM3 (4.0-11.0)
[2016-10-22 07:35] LABS: BICARBONATE 24.7 MEQ/L (21.0-32.0); POTASSIUM 4.7 MEQ/L (3.5-5.1)
--- NOTE | 2016-10-22 07:36 | EKG ---
Date Performed: 10/20/2016 Time Performed: 11:22:55 PTAGE: 61 years EKG: SINUS BRADYCARDIA NONSPECIFIC T-WAVE ABNORMALITY BORDERLINE ECG Compared to the PREVIOUS TRACING sinus rate has slowed PREVIOUS TRACIN06/02/2016 13.44 DOCTOR: Saul Mohamud Interpretating Date/Time 10/22/2016 07:35:26
--- NOTE | 2016-10-22 07:36 | EKG ---
Date Performed: 10/20/2016 Time Performed: 21:59:06 PTAGE: 61 years EKG: Sinus rhythm NORMAL ECG Nonspecific ST wave changes Compared to the PREVIOUS TRACING sinus rate has increased PREVIOUS TRACIN10/20/2016 11.22 DOCTOR: Saul Mohamud Interpretating Date/Time 10/22/2016 07:35:57
[2016-10-22] MEDS: cloNIDine HCL 0.3 MG TAB PO SCH ×3 (09:00→16:56)
[2016-10-22] MEDS: CALCIUM ACETATE 667 MG CAP PO SCH ×3 (09:00→16:55)
[2016-10-22] MEDS: amLODIPine BESYLATE 5 MG TAB PO SCH ×2 (12:18→22:01)
[2016-10-22] MEDS: FAMOTIDINE 20 MG TAB PO SCH ×2 (12:18→22:02)
--- NOTE | 2016-10-22 13:58 | HHI.FPPN ---
Subjective Remarks Resting comfortably in bed today. Has received hemodialysis this morning. Denies any symptoms currently. He's been afebrile and vital signs have been stable. (Kiko Vazquez MD R2) Objective Vitals Vital Signs Date Time Temp Pulse Resp B/P Pulse Ox O2 Delivery O2 Flow Rate FiO2 10/22/16 09:52 68 10/22/16 09:01 Room Air 10/22/16 08:00 98.1 70 20 129/84 99 10/22/16 06:09 63 10/22/16 04:32 98.0 78 16 122/79 100 10/21/16 23:58 98.4 68 16 117/67 99 10/21/16 23:00 20 10/21/16 21:00 Room Air 10/21/16 20:45 98.0 67 16 151/66 100 10/21/16 18:20 95 21 10/21/16 16:00 58 135/88 95 10/21/16 15:30 60 16 128/66 96 10/21/16 15:00 61 16 115/82 94 10/21/16 14:30 62 18 112/82 93 10/21/16 14:15 97.8 67 16 114/73 93 I/O 10/21/16 10/21/16 10/21/16 10/22/16 10/22/16 10/22/16 07:00 15:00 23:00 07:00 15:00 23:00 Intake Total 240 ml 240 ml 2556 ml Output Total 2250 ml 100 ml Balance 240 ml -2010 ml 2456 ml Intake Oral 240 ml 240 ml 120 ml IV Total 2436 ml Output Urine Total 250 ml 100 ml Hemodialysis 2000 ml # Voids 2 1 # Bowel Movements 0 0 0 (Kiko Vazquez MD R2) Result Diagram: 10/22/1615 10/22/16 0615 Objective Remarks GENERAL: AA male, in NAD. SKIN: Warm and dry. HEAD: Atraumatic. Normocephalic. EYES: Pupils equal and round. No scleral icterus. No injection or drainage. ENT: No nasal bleeding or discharge. Mucous membranes pink and moist. NECK: Trachea midline. No JVD. CARDIOVASCULAR: Regular rate and rhythm. RESPIRATORY: No accessory muscle use. Clear to auscultation. Breath sounds equal bilaterally. GASTROINTESTINAL: Abdomen soft, non-tender, nondistended. Hepatic and splenic margins not palpable. MUSCULOSKELETAL: Extremities without clubbing, cyanosis, or edema. R 5th digit amputated. NEUROLOGICAL: Awake and alert. No obvious cranial nerve deficits. Motor grossly within normal limits. Five out of 5 muscle strength in the arms and legs. Normal speech. PSYCHIATRIC: Appropriate mood and affect; insight and judgment normal. (Kiko Vazquez MD R2) A/P Assessment and Plan Mr. Ramirez is a pleasant 61-year-old black male, presenting with 2 weeks of generalized fatigue, elevated blood pressures, as well as worsening kidney function. He presented to the [place] emergency department at the recommendation of his cheese grader. NPO Problem #1: Acute on chronic kidney failure. GFR on admission 9, unchanged. Likely secondary to worsening nephrosclerosis as a result of his hypertension. May also be related to his chronic hepatitis C infection. Urinalysis did not show any signs of infection. -Consult nephrology, appreciate their assistance. Hemodialysis explained to patient. Patient to have catheter placed today. -Planning for peritoneal hemodialysis, Gen. surgery consulted for port placement. -Ultrasound of the KUB: small and echogenic consistent with medical renal disease -Monitor ins and outs -Check hepatitis C RNA titer levels and genotype -Repeat BMP in the a.m. Problem #2: Uncontrolled hypertension Blood pressure of 179/106 on admission. Now wnl. Concern for cardiovascular cause of falls prior to hospitalization. -Continue with clonidine 0.3 mg 3 times a day, atenolol 50 mg daily, amlodipine 5 mg twice a day. -Hydralazine 10 mg by mouth when necessary systolic greater than 160, diastolic greater than 100. -Echocardiogram -US Carotids Problem #3: Hyperkalemia. Resolved. Potassium was 5.5 on admission. Now wnl. Problem #4: Fluids electrolytes nutrition. -Fluids at the discretion of nephrology. -Electrolytes: Recheck BMP in the a.m. -Nutrition: Renal Diet. serafin Shaver Discharge Planning pending set up for outpt dialysis (Kiko Vazquez MD R2) Attending Attestation Patient seen and examined. Case reviewed and discussed. Agree with plan of care as discussed with me and documented in the resident note. (Shannan Shaver MD) Problem List: (1) GERD (gastroesophageal reflux disease) Status: Chronic (2) Hyperkalemia Status: Acute (3) HTN (hypertension) Status: Chronic (4) Renal failure (ARF), acute on chronic Status: Acute (Kiko Vazquez MD R2) Kiko Vazquez MD R2 Oct 22, 2016 13:58 Shannan Shaver MD Oct 23, 2016 17:40
--- NOTE | 2016-10-22 14:05 | HHI.NPPN ---
Subjective History of Present Illness 61 year old with CKD 5 now has ESRD started on hemodialysis Review of Systems General Constitutional: Fatigue Objective Data Data 10/21/16 10/22/16 19:00 07:00 Intake Total 2796 ml Output Total 2350 ml Balance 446 ml Intake Oral 360 ml IV Total 2436 ml Output Urine Total 350 ml Hemodialysis 2000 ml # Voids 1 # Bowel Movements 0 Vital Signs Date Time Temp Pulse Resp B/P Pulse Ox O2 Delivery O2 Flow Rate FiO2 10/22/16 09:52 68 10/22/16 09:01 Room Air 10/22/16 08:00 98.1 70 20 129/84 99 10/22/16 06:09 63 10/22/16 04:32 98.0 78 16 122/79 100 10/21/16 23:58 98.4 68 16 117/67 99 10/21/16 23:00 20 10/21/16 21:00 Room Air 10/21/16 20:45 98.0 67 16 151/66 100 10/21/16 18:20 95 21 10/21/16 16:00 58 135/88 95 10/21/16 15:30 60 16 128/66 96 10/21/16 15:00 61 16 115/82 94 10/21/16 14:30 62 18 112/82 93 10/21/16 14:15 97.8 67 16 114/73 93 -: 10/22/16 0615 10/22/16 0615 Physical Exam General Appearance: Well Developed, Well Nourished Eyes Eye Exam: Pupils Equal Neck Neck Exam: Neck Supple Pulmonary Resp Exam: Clear Bilaterally, Breath Sounds Equal Cardiology CV Exam: Regular, Good Perfusion Gastrointestinal/Abdomen GI Exam: Soft, Non-Tender, Bowel Sounds Present Integumentary Skin Exam: Clear Extremeties Extremities Exam: No Edema Neurologic Neuro Exam: Alert, Awake Assessment/Plan Problem List: (1) ESRD (end stage renal disease) Plan: dialysis done earlier UF 1.7 L well continue supportive care Tolerating it well next HD Thursday Surgery to follow on PD catheter insertion start PhosLo PTH high Zemplar with HD/Vit D Low oral supplements dc bicarbonate (2) Renal failure (ARF), acute on chronic Plan: Known advanced renal dysfunction, CKD 5 (3) Hyperkalemia Plan: resolved (4) HTN (hypertension) Plan: BP is better Ned Sosa MD Oct 22, 2016 14:05
[2016-10-22] MEDS ORDERED: CHOLECALCIFEROL (VIT D3) 5000 UNIT CAP PO ONE (14:15)
[2016-10-22] MEDS: CHOLECALCIFEROL (VIT D3) 1000 UNIT TAB PO SCH (14:53)
[2016-10-22] MEDS: ATENOLOL 50 MG TAB PO SCH (16:57)
--- NOTE | 2016-10-22 17:33 | EC ---
Study Study Date:10/22/2016 STUDY CONCLUSIONS SUMMARY - Left ventricle: The cavity size was normal. Wall thickness was normal. Systolic function was normal. The estimated ejection fraction was 60%. Wall motion was normal; there were no regional wall motion abnormalities. - Aortic valve: Mild regurgitation. If LV function is below 40, please consider prescribing an ACEI or ARB or document rationale for non-use. PROCEDURE DATA STUDY STATUS: Elective. Procedure: Transthoracic echocardiography. Image quality was good. Scanning was performed from the parasternal, apical, and subcostal acoustic windows. Study completion: The patient tolerated the procedure well. Transthoracic echocardiography. M-mode, complete 2D, complete spectral Doppler, and color Doppler. Height: Height: 67in. Weight: Weight: 147.7lb. Body mass index: BMI: 23.2kg/m^2. Body surface area: BSA: 1.78m^2. Patient status: Inpatient. CARDIAC ANATOMY LEFT VENTRICLE: The cavity size was normal. Wall thickness was normal. Systolic function was normal. The estimated ejection fraction was 60%. Wall motion was normal; there were no regional wall motion abnormalities. AORTIC VALVE: Trileaflet; normal thickness leaflets. Doppler: Transvalvular velocity was within the normal range. There was no stenosis. Mild regurgitation. AORTA: Aortic root: The aortic root was normal in size. MITRAL VALVE: Structurally normal valve. Doppler: Transvalvular velocity was within the normal range. There was no evidence for stenosis. No regurgitation. Valve area by pressure half-time: 3.06cm^2. Indexed valve area by pressure half-time: 1.72cm^2/m^2. LEFT ATRIUM: The atrium was normal in size. RIGHT VENTRICLE: The cavity size was normal. Wall thickness was normal. PULMONIC VALVE: Doppler: Transvalvular velocity was within the normal range. There was no evidence for stenosis. No regurgitation. TRICUSPID VALVE: Structurally normal valve. Doppler: Transvalvular velocity was within the normal range. Trace regurgitation. Peak gradient: 21mm Hg (D). PULMONARY ARTERY: The main pulmonary artery was normal-sized. Systolic pressure was within the normal range. RIGHT ATRIUM: The atrium was normal in size. PERICARDIUM: There was no pericardial effusion. SYSTEMIC VEINS: Inferior vena cava: The vessel was normal in size. Patient weight: 147.7lb _Ejection fraction:_ 65-75% _Fractional shortening:_ 32% up to 5Kg 5-11.5Kg 11.6-22.9Kg 23-45Kg 45-57Kg Aortic Root 7-13 <17 13-22 17-27 17-27 LA diam 6-13 <23 24-38 33-47 37-40 RVID 10-17 7-15 7-15 7-18 8-17 LVIDd 12-22 <32 24-38 33-47 37-40 LVPW 2-4 3-6 5-7 6-8 7-8 IVS 2-4 3-6 5-7 6-8 7-8 BASIC MEASUREMENTS ADULT NORMAL Left ventricle LV internal dimension, ED, chordal *34.6 mm 43-52 level, PLAX LV internal dimension, ES, chordal *22.9 mm 23-38 level, PLAX Fractional shortening, chordal level, 34 % >29 PLAX LV posterior wall thickness, ED 10.7 mm IVS/LVPW ratio, ED 1 <1.3 Ventricular septum Septal thickness, ED 10.7 mm Aortic valve Leaflet separation 18 mm 15-26 Left atrium Anterior-posterior dimension 26 mm Anterior-posterior dimension index 1.46 cm/m^2 <2.2 BASIC MEASUREMENTS ADULT NORMAL Aortic valve Leaflet separation 18 mm 15-26 Aorta Root diameter, ED 29 mm 20-37 DOPPLER MEASUREMENTS ADULT NORMAL Aortic valve Peak velocity, S 105 cm/s Regurgitant velocity, ED 193 cm/s Regurgitant deceleration 935 cm/s^2 Regurgitant pressure half-time 604 ms Regurgitant gradient, ED 15 mm Hg Mitral valve Peak E-wave velocity 51.3 cm/s Peak A-wave velocity 71.6 cm/s Pressure half-time 72 ms Peak E/A ratio 0.7 Valve area, pressure half-time 3.06 cm^2 Valve area index, pressure half-time 1.72 cm^2/m^2 Tricuspid valve Peak gradient, D 21 mm Hg Maximal inflow velocity 195 cm/s Systemic veins Estimated CVP 10 mm Hg LEGEND: Mean values are shown as u=mean value. Asterisk (*) pena values outside specified normal range. Blanca Sweeney [id number]
[2016-10-22] MEDS ORDERED: POLYETHYLENE GLYCOL 17 GM PKG PO PRN (17:45)
[2016-10-22] MEDS: DOCUSATE SODIUM 50 MG/SENNA 8.6 MG TAB PO SCH (22:01)
[2016-10-23] VITALS (9 sets, daily range): BP systolic 108–143; BP diastolic 73–85; PULSE 60–77; RESP 16; TEMP 98.4–98.9; O2SAT 98–100
[2016-10-23] MEDS: CALCIUM ACETATE 667 MG CAP PO SCH ×3 (08:24→16:52)
[2016-10-23] MEDS: CHOLECALCIFEROL (VIT D3) 1000 UNIT TAB PO SCH (08:24)
[2016-10-23] MEDS: cloNIDine HCL 0.3 MG TAB PO SCH ×3 (08:24→16:53)
[2016-10-23] MEDS: DOCUSATE SODIUM 50 MG/SENNA 8.6 MG TAB PO SCH ×2 (08:24→20:33)
[2016-10-23] MEDS: amLODIPine BESYLATE 5 MG TAB PO SCH ×2 (08:24→20:33)
[2016-10-23] MEDS: FAMOTIDINE 20 MG TAB PO SCH ×2 (08:25→20:33)
[2016-10-23] MEDS: CHOLECALCIFEROL (VIT D3) 5000 UNIT CAP PO SCH (08:28)
--- NOTE | 2016-10-23 09:03 | HHI.FPPN ---
Subjective Remarks Patient has no complaints this morning. He denies fever, chills, nausea, vomiting, chest pain, shortness of breath, body aches. He is getting up and moving around without difficulty. He is still urinating without any difficulty and has regular urination. He has normal bowel movements per his report. States that he has some discomfort at the PD catheter site when moving. He does not know what his definitive plan is for discharge but states that he knows he will be going to the dialysis centers upon discharge rather than doing peritoneal dialysis at home. He has not had any headaches since admission. (Adilene Wells MD R1) Objective Vitals Vital Signs Date Time Temp Pulse Resp B/P Pulse Ox O2 Delivery O2 Flow Rate FiO2 10/23/16 08:00 98.4 60 16 143/78 99 10/23/16 04:45 98.6 77 16 108/73 98 10/22/16 23:50 98.6 71 16 113/72 100 10/22/16 22:00 Room Air 10/22/16 20:55 98.9 75 16 120/75 99 10/22/16 20:42 79 10/22/16 16:00 98.0 87 20 124/77 98 10/22/16 14:09 98 10/22/16 12:00 99.1 84 20 101/68 98 10/22/16 09:52 68 10/22/16 09:01 Room Air I/O 10/22/16 10/22/16 10/22/16 10/23/16 10/23/16 10/23/16 07:00 15:00 23:00 07:00 15:00 23:00 Intake Total 2556 ml 600 ml 480 ml 0 ml Output Total 100 ml 200 ml 150 ml 150 ml Balance 2456 ml 400 ml 330 ml -150 ml Intake Oral 120 ml 600 ml 480 ml 0 ml IV Total 2436 ml Output Urine Total 100 ml 200 ml 150 ml 150 ml # Voids 2 # Bowel Movements 0 0 0 (Adilene Wells MD R1) Result Diagram: 10/22/1615 10/22/1615 Imaging Last Impressions Catheter Placement X-Ray 10/21/16 [id number] Signed Impressions: Service Date/Time: Friday, October 21, 2016 12:33 - CONCLUSION: Uncomplicated PermaCath placement as above. Satinder Khanna Jr., MD Carotid Artery Ultrasound 10/21/16 0000 Signed Impressions: Service Date/Time: Friday, October 21, 2016 23:18 - CONCLUSION: Mild calcified and noncalcified plaque at the carotid bulbs. No evidence of hemodynamically significant carotid stenosis. Anupam Antoine MD Renal Ultrasound 10/20/16 1457 Signed Impressions: Service Date/Time: Thursday, October 20, 2016 18:55 - CONCLUSION: The kidneys are small and increased in echogenicity consistent with medical renal disease. There is no hydronephrosis. There are small cysts. Saud Kowalski MD Chest X-Ray 10/20/16 1112 Signed Impressions: Service Date/Time: Thursday, October 20, 2016 11:47 - CONCLUSION: Mild left perihilar atelectasis with no other evidence of acute process. Alan Berry MD Objective Remarks GENERAL: Thin well appearing male lying in bed in no acute distress. SKIN: Warm and dry. No rashes or bruises. HEAD: Atraumatic. Normocephalic. EYES: Pupils equal and round. No scleral icterus. No injection or drainage. ENT: No nasal bleeding or discharge. Mucous membranes pink and moist. NECK: Trachea midline. No JVD. CARDIOVASCULAR: Regular rate and rhythm. Without murmur. Dressing and catheter over the right subclavian region are clean and dry. RESPIRATORY: No accessory muscle use. Clear to auscultation. Breath sounds equal bilaterally. GASTROINTESTINAL: Abdomen soft, non-tender, nondistended. Hepatic and splenic margins not palpable. MUSCULOSKELETAL: Extremities without clubbing, cyanosis, or edema. R 5th digit amputated. No calf tenderness. Negative Homans. NEUROLOGICAL: Awake and alert. No obvious cranial nerve deficits. Motor grossly within normal limits. Five out of 5 muscle strength in the arms and legs. Normal speech. PSYCHIATRIC: Appropriate mood and affect; insight and judgment normal. Medications and IVs Inpatient Medications Acetaminophen (Tylenol) 650 mg UNSCH PRN PO for headach, pain, temp > 101F; Start 10/20/16 at 17:30 Acetaminophen/ Hydrocodone Bitart ([place] 5-325 Mg) 1 tab Q6H PRN PO PAIN GREATER THAN 5 Last administered on 10/21/16t 22:03; Start 10/21/16 at 21:00 Albumin Human (Albumin 25% Inj) 25 gm UNSCH PRN IV WITH DIALYSIS; Start at 17:30 Amlodipine Besylate (Norvasc) 5 mg BID PO Last administered on 10/23/16 08:24 ; Start 10/20/16 at 18:30 Amlodipine Besylate 5 mg 5 mg DAILY PO ; Start 10/21/16 at 09:00; Stop 10/21/16 at 09:00; Status DC Atenolol (Tenormin) 50 mg DAILY@18 PO Last administered on 10/22/16 16:57; Start 10/20/16 at 18:00 Calcium Acetate (Phoslo) 667 mg TID PO Last administered on 10/23/16 08:24; Start 10/21/16 at 18:00 Calcium Gluconate (Calcium Gluconate Inj) 1 gm ONCE ONCE IV Last administered on 10/20/16 14:38; Start 10/20/16 at 14:00; Stop 10/20/16 at 14:08; Status DC Cefazolin Sodium/ Dextrose (Ancef 2 Gm Premix) 50 ml @ 100 mls/hr [employer]CHNICIAN IV Last administered on 10/21/16 13:49; Start 10/21/16 at 07:45; Stop 10/25/16 at 07:44 Cholecalciferol (Vitamin D3) 5,000 units DAILY PO Last administered on 08:28; Start 10/23/16 at 09:00 Clonidine (Catapres) 0.1 mg UNSCH PRN PO for BP > 180/100 X 2 readings; Start 10/20/16 at 17:30 Dextrose (D50w (Vial) Inj) 50 ml ONCE ONCE IV PUSH Last administered on 14:38; Start 10/20/16 at 14:00; Stop 10/20/16 at 14:08; Status DC Diphenhydramine HCl (Benadryl) 25 mg UNSCH PRN PO for hives/itching/anaphylaxis ; Start 10/20/16 at 17:30 Famotidine (Pepcid) 10 mg BID PO Last administered on 10/23/16 08:25; Start at 21:00 Gelatin (Gelfoam 12 Mm/7 Mm Top) 1 foam UNSCH PRN TOP SEE LABEL COMMENTS; Start 10/20/16 at 17:30 Gentamicin Sulfate (Gentamicin (Dialysis) Inj) 20 mg UNSCH PRN IV WITH DIALYSIS Last administered on 10/21/16 18:30; Start 10/20/16 at 17:30 Heparin Sodium (Porcine) (Heparin Inj) UNSCH PRN IVF SEE PROTOCOL; Start 10/21 at 14:15 Heparin Sodium (Porcine) 5000 units 5,000 units Q12HR SQ Last administered on 23:06; Start 10/20/16 at 21:30; Status Hold Heparin Sodium (Porcine) 8000 units 8,000 units UNSCH PRN IVF WITH DIALYSIS; Start 10/20/16 at 17:30 Hydralazine HCl (Apresoline) 10 mg Q6HR PRN PO SBP>160, DBP>90 Last administered on 10/20/16 20:45; Start 10/20/16 at 14:15 Hydrochlorothiazide (Microzide) 12.5 mg DAILY PO ; Start 10/21/16 at 09:00; Stop 10/21/16 at 09:00; Status DC Insulin Human Regular (NovoLIN R INJ) 10 units ONCE ONCE IV PUSH Last administered on 10/20/16 14:39; Start 10/20/16 at 14:00; Stop 10/20/16 at 14:08 ; Status DC IV Flush (NS Flush) UNSCH PRN IVF SEE PROTOCOL; Start 10/21/16 at 14:15 Mannitol (Mannitol Inj) 12.5 gm UNSCH PRN IV WITH DIALYSIS; Start 10/20/16 at 17:30 Nitroglycerin (Nitrostat Sl) 0.4 mg UNSCH PRN SL CHEST PAIN; Start 10/20/16 at 17:30 Ondansetron HCl (Zofran Inj) 4 mg UNSCH PRN IV WITH DIALYSIS; Start 10/20/16 at 17:30 Paricalcitol (Zemplar Inj) 1 mcg WITH DIALYSIS IV ; Start 10/22/16 at 14:15 Polyethylene Glycol (Miralax) 17 gm DAILY PRN PO CONSTIPATION Last administered on 10/22/16 17:43; Start 10/22/16 at 17:45 Senna/Docusate Sodium (Jessica-Colace) 1 tab BID PO Last administered on 08:24; Start 10/22/16 at 21:00 Sodium Chloride (NS 1000 ml Inj) 1,000 ml @ 0 mls/hr Q0M PRN IV WITH DIALYSIS; Start 10/20/16 at 17:20 Sodium Chloride/ Sodium Bicarbonate/ Sterile Water (Sodium Chloride 23.4% Inj/ Sodium Bicarbonate 8.4% Inj/Sterile Water For Inj) 1,084.625 ml @ 65 mls/hr [id number] IV Last administered on 10/22/16 12:19; Start 10/20/16 at 16:00; Stop 10/22/16 at 14:03; Status DC Vancomycin HCl 1000 mg/Sodium Chloride 250 ml @ 250 mls/hr [employer] TECHNICIAN IV Last administered on 10/21/16 12:30; Start 10/21/16 at 07:45; Stop 10/25/16 at 07:44 (Adilene Wells MD R1) Urinary Catheter: No (Adilene Wells MD R1) A/P Assessment and Plan Mr. Ramirez is a pleasant 61-year-old black male, presenting with 2 weeks of generalized fatigue, elevated blood pressures, as well as worsening kidney function. He presented to the [place] emergency department at the recommendation of his sap hana architect. He received PD catheter placement by IR on , and will be set up for dialysis as outpatient. General surgery was consulted for long-term catheter placement. Problem #1: Acute on chronic kidney failure. GFR on admission 9, unchanged. Likely secondary to worsening nephrosclerosis as a result of his hypertension. May also be related to his chronic hepatitis C infection. Urinalysis did not show any signs of infection. -Consult nephrology, appreciate their assistance. Hemodialysis explained to patient. Patient to have catheter placed today. -Planning for peritoneal hemodialysis, Gen. surgery consulted for port placement. -Ultrasound of the KUB: small and echogenic consistent with medical renal disease -Monitor ins and outs -Check hepatitis C RNA titer levels and genotype -Monitor BMP Problem #2: Uncontrolled hypertension Blood pressure of 179/106 on admission. Now wnl. Concern for cardiovascular cause of falls prior to hospitalization. -Continue with clonidine 0.3 mg 3 times a day, atenolol 50 mg daily, amlodipine 5 mg twice a day. -Hydralazine 10 mg by mouth when necessary systolic greater than 160, diastolic greater than 100. -Echocardiogram -US Carotids Problem #3: Hyperkalemia. Resolved. Potassium was 5.5 on admission. Now wnl. Problem #4: Fluids electrolytes nutrition. -Fluids at the discretion of nephrology. -Electrolytes: Recheck BMP in the a.m. -Nutrition: Renal Diet. Problem #5: Hepatitis C antibody positive Hepatitis profile was collected at admission to rule out renal insufficiency secondary to acute hepatitis. Hep C antibody is positive. HCV RNA viral studies are pending. Patient is asymptomatic without clinical signs of hepatitis at this time. CMP on admission showed normal liver enzymes. wdw Dr. Shaver Discharge Planning Pending discharge planning, will communicate with nephrology today. Case management aware. Spoke with Dr. Sosa, who states the patient will need permanent access for dialysis prior to discharge from hospital. He needs either a PD catheter or AV fistula placed. I will speak with general surgery today to determine plan of action. He is otherwise scheduled to have dialysis tomorrow, 10/24, via permacath that is currently in place. (Adilene Wells MD R1) Attending Attestation Patient seen and examined. Case reviewed and discussed. Agree with plan of care as discussed with me and documented in the resident note. (Shannan Shaver MD) Problem List: (1) GERD (gastroesophageal reflux disease) Status: Chronic (2) Hyperkalemia Status: Acute (3) HTN (hypertension) Status: Chronic (4) Renal failure (ARF), acute on chronic Status: Acute (5) Hepatitis C antibody test positive Status: Acute (Adilene Wells MD R1) Adilene Wells MD R1 Oct 23, 2016 09:03 Shannan Shaver MD Oct 23, 2016 17:39
[2016-10-23 09:49] LABS: HCV RNA PCR IU/ML 1210000 IU/mL (()); HCV RNA PCR LOGIU/ML 6.08 (())
[2016-10-23 12:29] LABS: AUTOMATED NEUTROPHIL # 4.3 TH/MM3 (1.8-7.7); BASOPHIL # 0.1 TH/MM3 (0-0.2); BASOPHIL % 1.1 % (0.0-2.0); EOSINOPHIL # 0.2 TH/MM3 (0-0.4); EOSINOPHIL % 3.3 % (0.0-4.0); HEMO FLAGS DIFF FINAL; LYMPH % 24.1 % (9.0-44.0); LYMPHOCYTE # 1.8 TH/MM3 (1.0-4.8); MEAN CELL VOLUME 92.9 FL (80.0-100.0); MEAN CORPUSCULAR HEMOGLOBIN 30.2 PG (27.0-34.0); MEAN CORPUSCULAR HGB CONC 32.6 % (32.0-36.0); MONO % 12.8 % (0.0-8.0); NEUT % 58.7 % (16.0-70.0); PLATELET COUNT 155 TH/MM3 (150-450); RED BLOOD COUNT 4.09 MIL/MM3 (4.50-5.90); RED CELL DISTRIBUTION WIDTH 13.7 % (11.6-17.2); WHITE BLOOD COUNT 7.4 TH/MM3 (4.0-11.0)
[2016-10-23 12:44] LABS: BICARBONATE 28.3 MEQ/L (21.0-32.0); POTASSIUM 4.4 MEQ/L (3.5-5.1)
--- NOTE | 2016-10-23 13:32 | HHI.NPPN ---
Subjective History of Present Illness 61 year old with CKD 5 now has ESRD started on hemodialysis Review of Systems General Constitutional: Fatigue Objective Data Data 10/22/16 10/23/16 19:00 07:00 Intake Total 600 ml 480 ml Output Total 200 ml 300 ml Balance 400 ml 180 ml Intake Oral 600 ml 480 ml Output Urine Total 200 ml 300 ml # Voids 2 # Bowel Movements 0 Vital Signs Date Time Temp Pulse Resp B/P Pulse Ox O2 Delivery O2 Flow Rate FiO2 10/23/16 09:50 76 10/23/16 08:40 Room Air 10/23/16 08:00 98.4 60 16 143/78 99 10/23/16 04:45 98.6 77 16 108/73 98 10/22/16 23:50 98.6 71 16 113/72 100 10/22/16 22:00 Room Air 10/22/16 20:55 98.9 75 16 120/75 99 10/22/16 20:42 79 10/22/16 16:00 98.0 87 20 124/77 98 10/22/16 14:09 98 -: 10/23/16 1210 10/23/16 1210 Physical Exam General Appearance: Well Developed, Well Nourished Eyes Eye Exam: Pupils Equal Neck Neck Exam: Neck Supple Pulmonary Resp Exam: Clear Bilaterally, Breath Sounds Equal Cardiology CV Exam: Regular, Good Perfusion Gastrointestinal/Abdomen GI Exam: Soft, Non-Tender, Bowel Sounds Present Integumentary Skin Exam: Clear Extremeties Extremities Exam: No Edema Neurologic Neuro Exam: Alert, Awake Assessment/Plan Problem List: (1) ESRD (end stage renal disease) Plan: dialysis as discussed he will need a Tenkhoff catheter during this admission for out pt facility to take over his care await surgery to place it next HD Thursday Surgery to follow on PD catheter insertion started on PhosLo PTH high Zemplar with HD/Vit D Low oral supplements (2) Renal failure (ARF), acute on chronic Plan: Known advanced renal dysfunction, CKD 5 (3) Hyperkalemia Plan: resolved (4) HTN (hypertension) Plan: BP is better Ned Sosa MD Oct 23, 2016 13:32
[2016-10-23] MEDS: ATENOLOL 50 MG TAB PO SCH (16:53)
[2016-10-23 17:52] LABS: HEPATITIS C RNA GENOTYPE 1a (())
[2016-10-24] VITALS (7 sets, daily range): BP systolic 99–118; BP diastolic 68–88; PULSE 66–80; RESP 16–18; TEMP 98–99; O2SAT 98–100
[2016-10-24] MEDS ORDERED: SODIUM CHLORID 0.9% 500 ML IV SCH (05:00)
[2016-10-24] MEDS ORDERED: INSULIN HUMAN REGULAR 1,000 UNITS/10 ML VIAL SQ PRN (05:00)
[2016-10-24 05:50] LABS: APTT (PATIENT) 28.5 SEC (24.3-30.1); INTERNATIONAL NORMALIZED RATIO 1.1 RATIO
[2016-10-24] MEDS: FAMOTIDINE 20 MG TAB PO SCH ×2 (09:00→20:32)
[2016-10-24] MEDS: DOCUSATE SODIUM 50 MG/SENNA 8.6 MG TAB PO SCH ×2 (09:00→20:32)
[2016-10-24] MEDS: CHOLECALCIFEROL (VIT D3) 5000 UNIT CAP PO SCH (09:00)
[2016-10-24] MEDS: CALCIUM ACETATE 667 MG CAP PO SCH ×3 (09:00→17:10)
[2016-10-24] MEDS: cloNIDine HCL 0.3 MG TAB PO SCH ×3 (09:00→17:10)
[2016-10-24] MEDS: amLODIPine BESYLATE 5 MG TAB PO SCH ×2 (09:00→20:32)
--- NOTE | 2016-10-24 09:20 | HHI.FPPN ---
Subjective Remarks Pt getting HD on exam. Reports feeling well no concerns. No BM in 2 days. Eating whole meals, no cp, sob, or DELVALLE's. (Kiko Vazquez MD R2) Objective Vitals Vital Signs Date Time Temp Pulse Resp B/P Pulse Ox O2 Delivery O2 Flow Rate FiO2 10/24/16 08:00 98.2 71 18 117/71 98 10/24/16 04:37 98.0 72 16 118/78 99 10/23/16 23:25 98.6 74 16 116/76 99 10/23/16 20:22 98.9 76 16 128/85 99 10/23/16 20:17 76 10/23/16 20:00 Room Air 10/23/16 16:00 98.6 77 16 125/79 100 10/23/16 12:11 98 21 10/23/16 12:00 98.5 76 16 116/73 98 10/23/16 09:50 76 I/O 10/23/16 10/23/16 10/23/16 10/24/16 10/24/16 10/24/16 07:00 15:00 23:00 07:00 15:00 23:00 Intake Total 0 ml 722 ml 480 ml 360 ml Output Total 150 ml 150 ml 300 ml 240 ml Balance -150 ml 572 ml 180 ml 120 ml Intake Oral 0 ml 720 ml 480 ml 360 ml IV Total 2 ml Output Urine Total 150 ml 150 ml 300 ml 240 ml # Bowel Movements 0 0 0 0 (Kiko Vazquez MD R2) Result Diagram: 10/23/16 1210 10/23/16 1210 Objective Remarks GENERAL: Thin well appearing male lying in bed in no acute distress. SKIN: Warm and dry. No rashes or bruises. HEAD: Atraumatic. Normocephalic. EYES: Pupils equal and round. No scleral icterus. No injection or drainage. ENT: No nasal bleeding or discharge. Mucous membranes pink and moist. NECK: Trachea midline. No JVD. CARDIOVASCULAR: Regular rate and rhythm. Without murmur. Dressing and catheter over the right subclavian region are clean and dry. RESPIRATORY: No accessory muscle use. Clear to auscultation. Breath sounds equal bilaterally. GASTROINTESTINAL: Abdomen soft, non-tender, nondistended. Hepatic and splenic margins not palpable. MUSCULOSKELETAL: Extremities without clubbing, cyanosis, or edema. R 5th digit amputated. No calf tenderness. Negative Homans. NEUROLOGICAL: Awake and alert. No obvious cranial nerve deficits. Motor grossly within normal limits. Five out of 5 muscle strength in the arms and legs. Normal speech. PSYCHIATRIC: Appropriate mood and affect; insight and judgment normal. (Kiko Vazquez MD R2) A/P Assessment and Plan Mr. Ramirez is a pleasant 61-year-old black male, presenting with 2 weeks of generalized fatigue, elevated blood pressures, as well as worsening kidney function. He presented to the [place] emergency department at the recommendation of his data reviewer. He received PD catheter placement by IR on , and will be set up for dialysis as outpatient. General surgery was consulted for long-term catheter placement. Problem #1: Acute on chronic kidney failure. GFR on admission 9, unchanged. Likely secondary to worsening nephrosclerosis as a result of his hypertension. May also be related to his chronic hepatitis C infection. Urinalysis did not show any signs of infection. -Consult nephrology, appreciate their assistance. Hemodialysis explained to patient. Patient to have Peritoneal catheter placed today. -Planning for peritoneal hemodialysis, Gen. surgery consulted for port placement. -Ultrasound of the KUB: small and echogenic consistent with medical renal disease -Monitor ins and outs -Check hepatitis C RNA titer levels and genotype -Monitor BMP Problem #2: Uncontrolled hypertension Blood pressure of 179/106 on admission. Now wnl. Concern for cardiovascular cause of falls prior to hospitalization. -Continue with clonidine 0.3 mg 3 times a day, atenolol 50 mg daily, amlodipine 5 mg twice a day. -Hydralazine 10 mg by mouth when necessary systolic greater than 160, diastolic greater than 100. -Echocardiogram -US Carotids Problem #3: Hyperkalemia. Resolved. Potassium was 5.5 on admission. Now wnl. Problem #4: Fluids electrolytes nutrition. -Fluids at the discretion of nephrology. -Electrolytes: Recheck BMP in the a.m. -Nutrition: Renal Diet. Problem #5: Hepatitis C antibody positive Hepatitis profile was collected at admission to rule out renal insufficiency secondary to acute hepatitis. Hep C antibody is positive. HCV RNA viral studies are pending. Patient is asymptomatic without clinical signs of hepatitis at this time. CMP on admission showed normal liver enzymes. wdw Dr. Shaver Discharge Planning Pending discharge planning, will communicate with nephrology today. Case management aware. Spoke with Dr. Sosa, who states the patient will need permanent access for dialysis prior to discharge from hospital. He needs either a PD catheter or AV fistula placed. I will speak with general surgery today to determine plan of action. He is otherwise scheduled to have dialysis tomorrow, 10/24, via permacath that is currently in place. (Kiko Vazquez MD R2) Attending Attestation Patient examined and case discussed with resident physicians I have read the above note and agree with the assessment/plan as discussed with me I was involved in all medical decision making for this patient Joce Paz M.D. (Joce Paz MD) Problem List: (1) GERD (gastroesophageal reflux disease) Status: Chronic (2) Hyperkalemia Status: Acute (3) HTN (hypertension) Status: Chronic (4) Renal failure (ARF), acute on chronic Status: Acute (5) Hepatitis C antibody test positive Status: Acute (Kiko Vazquez MD R2) Kiko Vazquez MD R2 Oct 24, 2016 09:20 Joce Paz MD Oct 24, 2016 16:32
[2016-10-24] MEDS ORDERED: SENN1TAB PO (10:28)
[2016-10-24] MEDS ORDERED: CALC667C PO (10:28)
[2016-10-24] MEDS ORDERED: AMLO5 PO (10:28)
[2016-10-24] MEDS ORDERED: CHOL5000 PO (10:28)
--- NOTE | 2016-10-24 11:07 | HHI.NPPN ---
Subjective History of Present Illness 61 year old with CKD 5 now has ESRD started on hemodialysis Review of Systems General Constitutional: Fatigue Objective Data Data 10/23/16 10/24/16 19:00 07:00 Intake Total 722 ml 840 ml Output Total 150 ml 540 ml Balance 572 ml 300 ml Intake Oral 720 ml 840 ml IV Total 2 ml Output Urine Total 150 ml 540 ml # Bowel Movements 0 0 Vital Signs Date Time Temp Pulse Resp B/P Pulse Ox O2 Delivery O2 Flow Rate FiO2 10/24/16 08:00 98.2 71 18 117/71 98 10/24/16 08:00 Room Air 10/24/16 04:37 98.0 72 16 118/78 99 10/23/16 23:25 98.6 74 16 116/76 99 10/23/16 20:22 98.9 76 16 128/85 99 10/23/16 20:17 76 10/23/16 20:00 Room Air 10/23/16 16:00 98.6 77 16 125/79 100 10/23/16 12:11 98 21 10/23/16 12:00 98.5 76 16 116/73 98 -: 10/23/16 1210 10/23/16 1210 Physical Exam General Appearance: Well Developed, Well Nourished Eyes Eye Exam: Pupils Equal Neck Neck Exam: Neck Supple Pulmonary Resp Exam: Clear Bilaterally, Breath Sounds Equal Cardiology CV Exam: Regular, Good Perfusion Gastrointestinal/Abdomen GI Exam: Soft, Non-Tender, Bowel Sounds Present Integumentary Skin Exam: Clear Extremeties Extremities Exam: No Edema Neurologic Neuro Exam: Alert, Awake Assessment/Plan Problem List: (1) ESRD (end stage renal disease) Plan: dialysis proceedings noted 3K UF 2 L await surgery to place Tenkhoff catheter next HD Thursday Surgery to follow on PD catheter insertion started on PhosLo PTH high Zemplar with HD/Vit D Low oral supplements (2) Renal failure (ARF), acute on chronic Plan: Known advanced renal dysfunction, CKD 5 (3) Hyperkalemia Plan: resolved (4) HTN (hypertension) Plan: BP is better Ned Sosa MD Oct 24, 2016 11:07
[2016-10-24] MEDS: PARICALCITOL IV SCH (12:16)
[2016-10-24] MEDS: GENTAMICIN SULFATE (DIALYSIS USE ONLY) 20 MG/2 ML VIAL IV PRN (12:17)
[2016-10-24] MEDS: HEPARIN SODIUM - IV 10,000 UNITS/10 ML VIAL PRN (12:17)
[2016-10-24] MEDS: ATENOLOL 50 MG TAB PO SCH (17:10)
[2016-10-25 03:57] VITALS: BP 118/68; PULSE 72; RESP 16; TEMP 98.5; O2SAT 99
[2016-10-25] MEDS: LACTATED RINGER'S 1000 ML IV SCH ×2 (06:17→06:44)
[2016-10-25] MEDS ORDERED: BUPIVACAINE/EPINEPHRINE 0.25% 50 ML VIAL ONE (07:12)
[2016-10-25 08:00] VITALS: BP 104/69; PULSE 71; PULSE 74; RESP 18; TEMP 98.2; O2SAT 99
[2016-10-25] MEDS: CHOLECALCIFEROL (VIT D3) 5000 UNIT CAP PO SCH (09:00)
[2016-10-25] MEDS: DOCUSATE SODIUM 50 MG/SENNA 8.6 MG TAB PO SCH ×2 (09:00→21:23)
[2016-10-25] MEDS: cloNIDine HCL 0.3 MG TAB PO SCH ×3 (09:00→18:15)
[2016-10-25] MEDS: CALCIUM ACETATE 667 MG CAP PO SCH ×3 (09:00→18:15)
[2016-10-25] MEDS: FAMOTIDINE 20 MG TAB PO SCH ×2 (09:00→21:23)
[2016-10-25] MEDS: amLODIPine BESYLATE 5 MG TAB PO SCH ×2 (09:00→21:22)
--- NOTE | 2016-10-25 09:37 | PD.OP ---
Operative Report Date of Surgery: Oct 25, 2016 Preoperative Diagnosis: CKD, desire for PD Postoperative Diagnosis: same Procedure: Lap assisted PD catheter placement. Anesthesia: general Surgeon: Darnell Chris Matching Machine Operator(s): Armando Operation and Findings: successful placement of swan neck 3 cuffed catheter, exiting LUQ abdomen. easy flow of fluid through catheter, 1 liter in, approximate 800 ml out. EBL less than 5 ml. Darnell Chris MD Oct 25, 2016 09:36
[2016-10-25] MEDS ORDERED: *morphine SULFATE 8 MG/ML PERIprocedure ONLY ONE ×2 (09:43→09:56)
[2016-10-25] MEDS ORDERED: SODIUM CHLORIDE 0.9% FLUSH 5 ML FLUSH IVF PRN (09:45)
[2016-10-25] MEDS ORDERED: ACETAMINOPHEN/HYDROcodone 325 MG/7.5 MG TAB PO PRN (09:45)
[2016-10-25] MEDS ORDERED: Post-op Orders (for Pharmacy) MISC XX ONE (09:45)
--- NOTE | 2016-10-25 11:27 | HHI.FPPN ---
Subjective Remarks Patient was seen and examined this morning after having his PD catheter placed. He was NPO yesterday for catheter placement got hungry prior to procedure--was rescheduled for today. He is back from the PACU and states that he has some pain around the site of procedure. No nausea, vomiting, lightheadedness. Has no appetite yet. (Adilene Wells MD R1) Objective Vitals Vital Signs Date Time Temp Pulse Resp B/P Pulse Ox O2 Delivery O2 Flow Rate FiO2 10/25/16 10:00 97.0 59 14 169/92 99 Nasal Cannula 2 10/25/16 09:45 78 14 170/91 99 Nasal Cannula 2 10/25/16 09:35 97.0 68 14 157/88 99 Nasal Cannula 3 10/25/16 08:00 98.2 71 18 104/69 99 10/25/16 03:57 98.5 72 16 118/68 99 10/24/16 23:32 98.8 75 16 99/68 99 10/24/16 23:31 Room Air 10/24/16 20:07 99.0 80 16 116/68 100 10/24/16 16:00 98.2 66 18 107/68 98 10/24/16 12:26 98.7 80 18 110/88 100 I/O 10/24/16 10/24/16 10/24/16 10/25/16 10/25/16 10/25/16 07:00 15:00 23:00 07:00 15:00 23:00 Intake Total 360 ml 0 ml 480 ml 0 ml 600 ml Output Total 240 ml 250 ml 200 ml 50 ml 25 ml Balance 120 ml -250 ml 280 ml -50 ml 575 ml Intake Oral 360 ml 0 ml 480 ml 0 ml Other 600 ml Output Urine Total 240 ml 250 ml 200 ml 50 ml Estimated Blood Loss 25 ml # Bowel Movements 0 0 1 0 (Adilene Wells MD R1) Result Diagram: 10/23/16 1210 10/23/16 1210 Imaging Last Impressions Catheter Placement X-Ray 10/21/16 1659 Signed Impressions: Service Date/Time: Friday, October 21, 2016 12:33 - CONCLUSION: Uncomplicated PermaCath placement as above. Satinder Khanna Jr., MD Carotid Artery Ultrasound 10/21/16 0000 Signed Impressions: Service Date/Time: Friday, October 21, 2016 23:18 - CONCLUSION: Mild calcified and noncalcified plaque at the carotid bulbs. No evidence of hemodynamically significant carotid stenosis. Anupam Antoine MD Renal Ultrasound 10/20/16 1457 Signed Impressions: Service Date/Time: Thursday, October 20, 2016 18:55 - CONCLUSION: The kidneys are small and increased in echogenicity consistent with medical renal disease. There is no hydronephrosis. There are small cysts. Saud Kowalski MD Chest X-Ray 10/20/16 1112 Signed Impressions: Service Date/Time: Thursday, October 20, 2016 11:47 - CONCLUSION: Mild left perihilar atelectasis with no other evidence of acute process. Alan Berry MD Objective Remarks GENERAL: Thin well appearing male lying in bed in no acute distress. SKIN: Warm and dry. No rashes or bruises. HEAD: Atraumatic. Normocephalic. EYES: Pupils equal and round. No scleral icterus. No injection or drainage. ENT: No nasal bleeding or discharge. Mucous membranes pink and moist. NECK: Trachea midline. No JVD. CARDIOVASCULAR: Regular rate and rhythm. Without murmur. Dressing and catheter over the right subclavian region are clean and dry. RESPIRATORY: No accessory muscle use. Clear to auscultation. Breath sounds equal bilaterally. GASTROINTESTINAL: Abdomen soft, non-tender, nondistended. Hepatic and splenic margins not palpable. New PermCath noted at lower abdomen, site is clean and dry , difficult for patient to move around. Bowel sounds hypoactive. MUSCULOSKELETAL: Extremities without clubbing, cyanosis, or edema. R 5th digit amputated. No calf tenderness. Negative Homans. NEUROLOGICAL: Awake and alert. No obvious cranial nerve deficits. Motor grossly within normal limits. Five out of 5 muscle strength in the arms and legs. Normal speech. PSYCHIATRIC: Appropriate mood and affect; insight and judgment normal. Medications and IVs Inpatient Medications Acetaminophen (Tylenol) 650 mg UNSCH PRN PO for headach, pain, temp > 101F; Start 10/20/16 at 17:30 Acetaminophen/ Hydrocodone Bitart ([place] 5-325 Mg) 1 tab Q6H PRN PO PAIN GREATER THAN 5 Last administered on 10/21/16t 22:03; Start 10/21/16 at 21:00; Stop 10/25/16 at 10:02; Status DC Acetaminophen/ Hydrocodone Bitart ([place] 7.5-325 Mg) 1 tab Q4H PRN PO PAIN SCALE 1 TO 5; Start 10/25/16 at 09:45 Acetaminophen/ Hydrocodone Bitart ([place] 10-325 Mg) 1 tab Q4H PRN PO PAIN 6-10 ; Start 10/25/16 at 09:45 Albumin Human (Albumin 25% Inj) 25 gm UNSCH PRN IV WITH DIALYSIS; Start at 17:30 Amlodipine Besylate (Norvasc) 5 mg BID PO Last administered on 10/24/16 20:32 ; Start 10/20/16 at 18:30 Amlodipine Besylate 5 mg 5 mg DAILY PO ; Start 10/21/16 at 09:00; Stop 10/21/16 at 09:00; Status DC Atenolol (Tenormin) 50 mg DAILY@18 PO Last administered on 10/24/16 17:10; Start 10/20/16 at 18:00 Calcium Acetate (Phoslo) 667 mg TID PO Last administered on 10/24/16 17:10; Start 10/21/16 at 18:00 Calcium Gluconate (Calcium Gluconate Inj) 1 gm ONCE ONCE IV Last administered on 10/20/16 14:38; Start 10/20/16 at 14:00; Stop 10/20/16 at 14:08; Status DC Cefazolin Sodium/ Dextrose (Ancef 2 Gm Premix) 50 ml @ 100 mls/hr ENDOSCOPY RN IV Last administered on 10/21/16 13:49; Start 10/21/16 at 07:45; Stop 10/25/16 at 07:44; Status DC Cholecalciferol (Vitamin D3) 5,000 units DAILY PO Last administered on 08:28; Start 10/23/16 at 09:00 Clonidine (Catapres) 0.1 mg UNSCH PRN PO for BP > 180/100 X 2 readings; Start 10/20/16 at 17:30 Dextrose (D50w (Vial) Inj) 50 ml ONCE ONCE IV PUSH Last administered on 14:38; Start 10/20/16 at 14:00; Stop 10/20/16 at 14:08; Status DC Diphenhydramine HCl (Benadryl) 25 mg UNSCH PRN PO for hives/itching/anaphylaxis ; Start 10/20/16 at 17:30 Famotidine (Pepcid) 10 mg BID PO Last administered on 10/24/16 20:32; Start at 21:00 Gelatin (Gelfoam 12 Mm/7 Mm Top) 1 foam UNSCH PRN TOP SEE LABEL COMMENTS; Start 10/20/16 at 17:30 Gentamicin Sulfate (Gentamicin (Dialysis) Inj) 20 mg UNSCH PRN IV WITH DIALYSIS Last administered on 10/24/16 12:17; Start 10/20/16 at 17:30 Heparin Sodium (Porcine) (Heparin Inj) UNSCH PRN IVF SEE PROTOCOL; Start 10/21 at 14:15 Heparin Sodium (Porcine) 5000 units 5,000 units Q12HR SQ Last administered on 23:06; Start 10/20/16 at 21:30; Status Hold Heparin Sodium (Porcine) 8000 units 8,000 units UNSCH PRN IVF WITH DIALYSIS; Start 10/20/16 at 17:30 Hydralazine HCl (Apresoline) 10 mg Q6HR PRN PO SBP>160, DBP>90 Last administered on 10/20/16 20:45; Start 10/20/16 at 14:15 Hydrochlorothiazide (Microzide) 12.5 mg DAILY PO ; Start 10/21/16 at 09:00; Stop 10/21/16 at 09:00; Status DC Insulin Human Regular (NovoLIN R INJ) See Protocol Table ... UNSCH X1 PRN SQ SEE PROTOCOL; Start 10/24/16 at 05:00; Stop 10/25/16 at 04:59; Status DC IV Flush (NS Flush) 2 ml BID IVF ; Start 10/25/16 at 21:00 Lactated Ringer's 1,000 ml @ 30 mls/hr Q24H IV Last administered on 10/25/16 06:44; Start 10/24/16 at 05:00 Mannitol (Mannitol Inj) 12.5 gm UNSCH PRN IV WITH DIALYSIS; Start 10/20/16 at 17:30 Miscellaneous Information (Post-op Orders (for Pharmacy)) STAT ONCE XX ; Start 10/25/16 at 09:45; Stop 10/25/16 at 10:03; Status DC Morphine Sulfate (Morphine Inj) 4 mg Q3H PRN IV PUSH BREAKTHROUGH PAIN; Start 10/25/16 at 09:45 Nitroglycerin (Nitrostat Sl) 0.4 mg UNSCH PRN SL CHEST PAIN; Start 10/20/16 at 17:30 Ondansetron HCl (Zofran Inj) 4 mg UNSCH PRN IV WITH DIALYSIS Last administered on 10/25/16 10:50; Start 10/20/16 at 17:30 Paricalcitol (Zemplar Inj) 1 mcg WITH DIALYSIS IV Last administered on 12:16; Start 10/22/16 at 14:15 Polyethylene Glycol (Miralax) 17 gm DAILY PRN PO CONSTIPATION Last administered on 10/22/16 17:43; Start 10/22/16 at 17:45 Senna/Docusate Sodium 1 tab 1 tab BID PO Last administered on 10/24/16 20:32; Start 10/22/16 at 21:00 Sodium Chloride (NS 1000 ml Inj) 1,000 ml @ 0 mls/hr Q0M PRN IV WITH DIALYSIS; Start 10/20/16 at 17:20 Sodium Chloride (NS 500 ml Inj) 500 ml @ 30 mls/hr [id number] IV Last administered on 10/24/16 22:00; Start 10/24/16 at 05:00; Stop 10/25/16 at 04:59 ; Status DC Sodium Chloride/ Sodium Bicarbonate/ Sterile Water (Sodium Chloride 23.4% Inj/ Sodium Bicarbonate 8.4% Inj/Sterile Water For Inj) 1,084.625 ml @ 65 mls/hr [id number] IV Last administered on 10/22/16 12:19; Start 10/20/16 at 16:00; Stop 10/22/16 at 14:03; Status DC Vancomycin HCl 1000 mg/Sodium Chloride 250 ml @ 250 mls/hr ENDOSCOPY RN IV Last administered on 10/21/16 12:30; Start 10/21/16 at 07:45; Stop 10/25/16 at 07:44 ; Status DC (Adilene Wells MD R1) Urinary Catheter: No (Adilene Wells MD R1) A/P Assessment and Plan Mr. Ramirez is a pleasant 61-year-old black male, presenting with 2 weeks of generalized fatigue, elevated blood pressures, as well as worsening kidney function. He presented to the [place] emergency department at the recommendation of his smoking pipe driller and threader. He received PD catheter placement by IR on , and will be set up for dialysis as outpatient. General surgery was consulted for long-term catheter placement. Discharge Planning Pending discharge planning per nephrology. Case management aware. (Adilene Wells MD R1) Attending Attestation Pt. examined and case discussed with resident physicians I have read the above note and agree with the assessment/plan as discussed with me I was involved in all medical decision making for this patient Joce Paz MD (Joce Paz MD) Problem List: (1) Renal failure (ARF), acute on chronic Status: Acute Plan: GFR on admission 9, unchanged. Likely secondary to worsening nephrosclerosis as a result of his hypertension. May also be related to his chronic hepatitis C infection. Urinalysis did not show any signs of infection. Normal urination. -Consult nephrology, appreciate their assistance. Hemodialysis explained to patient. -Planning for peritoneal hemodialysis, Gen. surgery placed a PD catheter 10/25 -Renal US 10/20: small and echogenic consistent with medical renal disease -Monitor ins and outs -Monitor BMP (2) HTN (hypertension) Status: Chronic Plan: Blood pressure of 179/106 on admission. Within normal limits until 10/25, now some hypertension likely secondary to pain. -Continue with clonidine 0.3 mg 3 times a day, atenolol 50 mg daily, amlodipine 5 mg twice a day. -Hydralazine 10 mg by mouth when necessary systolic > 160, diastolic > 100. -Echocardiogram: Within normal limits, EF 60% -US Carotids: No significant stenosis (3) Hepatitis C antibody test positive Status: Acute Plan: Hepatitis profile was collected at admission to rule out renal insufficiency secondary to acute hepatitis. Check hepatitis C RNA titer levels and genotype --> viral load is greater than 1 million Will need to be treated as an outpatient (4) Hyperkalemia Status: Resolved Plan: Resolved. Potassium was 5.5 on admission. Now wnl. Continue to monitor BMP (5) GERD (gastroesophageal reflux disease) Status: Chronic Plan: Continue Pepcid at home dose 10 mg twice a day (6) Fluids/Electrolytes/Nutrition/Prophylaxis Status: Acute Plan: Fluids: Per nephrology Electrolytes: monitor and replete as needed Nutrition: Renal Diet DVT Prophylaxis: restart Heparin 5000U subQ q12hr on 10/26/bilateral SCDs GI Prophylaxis: Pepcid home dose (Adilene Wells MD R1) Problem Qualifiers (1) HTN (hypertension): Qualified Code: I10 - Essential hypertension Adilene Wells MD R1 Oct 25, 2016 11:27 Joce Paz MD Oct 25, 2016 20:59
[2016-10-25 12:00] VITALS: BP 135/94; PULSE 87; RESP 18; TEMP 97.8; O2SAT 100
[2016-10-25] MEDS ORDERED: PHENYLEPH/NS 1000 MCG/10 ML SYR IV ONE (12:00)
[2016-10-25] MEDS ORDERED: NEOSTIGMINE 3 MG/3 ML SYR IV ONE (12:00)
[2016-10-25] MEDS ORDERED: PROPOFOL 200 MG/20 ML AMP IV ONE (12:00)
[2016-10-25] MEDS ORDERED: ONDANSETRON HCL 4 MG/2 ML VIAL IV PUSH ONE (12:00)
[2016-10-25 12:13] LABS: AUTOMATED NEUTROPHIL # 6.4 TH/MM3 (1.8-7.7); BASOPHIL # 0.1 TH/MM3 (0-0.2); BASOPHIL % 0.7 % (0.0-2.0); EOSINOPHIL # 0.2 TH/MM3 (0-0.4); EOSINOPHIL % 1.7 % (0.0-4.0); HEMATOCRIT 41.7 % (39.0-51.0); HEMO FLAGS DIFF FINAL; LYMPH % 22.2 % (9.0-44.0); LYMPHOCYTE # 2.2 TH/MM3 (1.0-4.8); MEAN CELL VOLUME 93.8 FL (80.0-100.0); MEAN CORPUSCULAR HEMOGLOBIN 31.2 PG (27.0-34.0); MEAN CORPUSCULAR HGB CONC 33.2 % (32.0-36.0); MONO % 10.3 % (0.0-8.0); NEUT % 65.1 % (16.0-70.0); PLATELET COUNT 178 TH/MM3 (150-450); RED BLOOD COUNT 4.44 MIL/MM3 (4.50-5.90); RED CELL DISTRIBUTION WIDTH 13.9 % (11.6-17.2); WHITE BLOOD COUNT 9.8 TH/MM3 (4.0-11.0)
[2016-10-25 12:41] LABS: ALKALINE PHOSPHATASE 73 U/L (45-117); ALT (GPT) 34 U/L (12-78); ANION GAP 17 MEQ/L (5-15); AST (GOT) 53 U/L (15-37); BICARBONATE 19.8 MEQ/L (21.0-32.0); BLOOD UREA NITROGEN 48 MG/DL (7-18); CHLORIDE 93 MEQ/L (98-107); GLOMERULAR FILTRATION RATE 10 ML/MIN (>89); MAGNESIUM 1.7 MG/DL (1.5-2.5); POTASSIUM 3.8 MEQ/L (3.5-5.1); SODIUM (NA) 130 MEQ/L (136-145); TOTAL BILIRUBIN ADULT 0.8 MG/DL (0.2-1.0)
--- NOTE | 2016-10-25 12:42 | HHI.NPPN ---
Subjective History of Present Illness 61 year old with CKD 5 now has ESRD started on hemodialysis Additional Remarks Patient is alert, has mild abd. pain. Review of Systems General Constitutional: Fatigue Objective Data Data 10/24/16 10/25/16 19:00 07:00 Intake Total 0 ml 480 ml Output Total 250 ml 250 ml Balance -250 ml 230 ml Intake Oral 0 ml 480 ml Output Urine Total 250 ml 250 ml # Bowel Movements 0 1 Vital Signs Date Time Temp Pulse Resp B/P Pulse Ox O2 Delivery O2 Flow Rate FiO2 10/25/16 12:00 97.8 87 18 135/94 100 10/25/16 10:00 97.0 59 14 169/92 99 Nasal Cannula 2 10/25/16 09:45 78 14 170/91 99 Nasal Cannula 2 10/25/16 09:35 97.0 68 14 157/88 99 Nasal Cannula 3 10/25/16 08:00 98.2 71 18 104/69 99 10/25/16 03:57 98.5 72 16 118/68 99 10/24/16 23:32 98.8 75 16 99/68 99 10/24/16 23:31 Room Air 10/24/16 20:07 99.0 80 16 116/68 100 10/24/16 16:00 98.2 66 18 107/68 98 -: 10/25/16 1125 10/25/16 1125 Physical Exam General Appearance: No Acute Distress, Comfortable Eyes Eye Exam: Pupils Equal Neck Neck Exam: Neck Supple Pulmonary Resp Exam: Clear Bilaterally, Breath Sounds Equal Cardiology CV Exam: Regular, Good Perfusion Gastrointestinal/Abdomen GI Exam: Soft, Non-Tender, Bowel Sounds Present Integumentary Skin Exam: Clear Extremeties Extremities Exam: No Edema Neurologic Neuro Exam: Alert, Awake Assessment/Plan Problem List: (1) ESRD (end stage renal disease) Plan: HD done yesterday. Now has PD Catheter done in AM. Continue HD for now MWF, possible D/C once out patient HD arranged. started on PhosLo PTH high Zemplar with HD/Vit D Low oral supplements (2) Renal failure (ARF), acute on chronic Plan: Known advanced renal dysfunction, CKD 5 (3) Hyperkalemia Plan: resolved (4) HTN (hypertension) Plan: BP is better Problem Qualifiers (1) HTN (hypertension): Qualified Code: I10 - Essential hypertension Singh iVllela MD Oct 25, 2016 12:42
[2016-10-25 16:00] VITALS: BP 133/83; PULSE 69; RESP 18; TEMP 98.1; O2SAT 100
[2016-10-25] MEDS: ATENOLOL 50 MG TAB PO SCH (18:15)
[2016-10-25] MEDS: MORPHINE SULFATE 4 MG/ML INJ IV PUSH PRN (18:19)
[2016-10-25 20:00] VITALS: BP 114/74; PULSE 97; RESP 18; TEMP 98.2; O2SAT 99
[2016-10-25] MEDS: SODIUM CHLORIDE 0.9% FLUSH 5 ML FLUSH IVF SCH (21:23)
[2016-10-26] VITALS (8 sets, daily range): BP systolic 112–130; BP diastolic 70–85; PULSE 74–86; RESP 18; TEMP 98–99.5; O2SAT 96–100
[2016-10-26] MEDS: ACETAMINOPHEN/HYDROcodone 325 MG/10 MG TAB PO PRN ×2 (01:02→21:31)
[2016-10-26 07:10] LABS: AUTOMATED NEUTROPHIL # 3.5 TH/MM3 (1.8-7.7); BASOPHIL % 0.4 % (0.0-2.0); EOSINOPHIL # 0.2 TH/MM3 (0-0.4); EOSINOPHIL % 2.4 % (0.0-4.0); HEMATOCRIT 36.8 % (39.0-51.0); HEMO FLAGS DIFF FINAL; LYMPH % 31.5 % (9.0-44.0); LYMPHOCYTE # 2.1 TH/MM3 (1.0-4.8); MEAN CELL VOLUME 92.7 FL (80.0-100.0); MEAN CORPUSCULAR HEMOGLOBIN 31.3 PG (27.0-34.0); MEAN CORPUSCULAR HGB CONC 33.8 % (32.0-36.0); MONO % 14.1 % (0.0-8.0); NEUT % 51.6 % (16.0-70.0); PLATELET COUNT 152 TH/MM3 (150-450); RED BLOOD COUNT 3.97 MIL/MM3 (4.50-5.90); RED CELL DISTRIBUTION WIDTH 13.9 % (11.6-17.2); WHITE BLOOD COUNT 6.8 TH/MM3 (4.0-11.0)
[2016-10-26 07:32] LABS: ALKALINE PHOSPHATASE 59 U/L (45-117); ALT (GPT) 27 U/L (12-78); ANION GAP 12 MEQ/L (5-15); AST (GOT) 42 U/L (15-37); BICARBONATE 26.7 MEQ/L (21.0-32.0); BLOOD UREA NITROGEN 56 MG/DL (7-18); CHLORIDE 92 MEQ/L (98-107); GLOMERULAR FILTRATION RATE 8 ML/MIN (>89); MAGNESIUM 2.2 MG/DL (1.5-2.5); POTASSIUM 5.1 MEQ/L (3.5-5.1); SODIUM (NA) 131 MEQ/L (136-145); TOTAL BILIRUBIN ADULT 0.6 MG/DL (0.2-1.0)
--- NOTE | 2016-10-26 08:15 | HHI.FPPN ---
Subjective Remarks Patient was seen and examined this morning. He is status post PD catheter placement yesterday morning. He had 2 meals after that. He states that he had an episode of 500 mL vomitus of food after that, received Zofran with resolution of symptoms. Denies having any nausea prior to the vomiting. He said his belly feels better today. Had a bowel movement since the procedure but is passing flatus. He states he is using the incentive spirometer. He had breakfast this morning which included pancakes and eggs. He does note that he has not had urine output since the procedure but is drinking often, at least 1- 2 L since procedure. Bladder scan was performed showing 300 mL in the bladder. He feels comfortable and declines any intervention at this time. (Adilene Wells MD R1) Objective Vitals Vital Signs Date Time Temp Pulse Resp B/P Pulse Ox O2 Delivery O2 Flow Rate FiO2 10/26/16 04:00 98.1 74 18 117/78 100 10/26/16 01:27 Room Air 10/26/16 01:27 79 10/26/16 00:00 98.0 75 18 112/70 97 10/25/16 20:00 98.2 97 18 114/74 99 10/25/16 16:00 98.1 69 18 133/83 100 10/25/16 12:00 97.8 87 18 135/94 100 10/25/16 10:00 97.0 59 14 169/92 99 Nasal Cannula 2 10/25/16 09:45 78 14 170/91 99 Nasal Cannula 2 10/25/16 09:35 97.0 68 14 157/88 99 Nasal Cannula 3 I/O 10/25/16 10/25/16 10/25/16 10/26/16 10/26/16 10/26/16 07:00 15:00 23:00 07:00 15:00 23:00 Intake Total 0 ml 840 ml Output Total 50 ml 1025 ml Balance -50 ml -185 ml Intake Oral 0 ml 240 ml Other 600 ml Output Urine Total 50 ml Emesis 1000 ml Estimated Blood Loss 25 ml # Voids 0 0 # Bowel Movements 0 0 (Adilene Wells MD R1) Result Diagram: 10/26/16 0655 10/26/16 0655 Imaging Last Impressions Catheter Placement X-Ray 10/21/16 6570 Signed Impressions: Service Date/Time: Friday, October 21, 2016 12:33 - CONCLUSION: Uncomplicated PermaCath placement as above. Satinder Khanna Jr., MD Carotid Artery Ultrasound 10/21/16 0000 Signed Impressions: Service Date/Time: Friday, October 21, 2016 23:18 - CONCLUSION: Mild calcified and noncalcified plaque at the carotid bulbs. No evidence of hemodynamically significant carotid stenosis. Anupam Antoine MD Renal Ultrasound 10/20/16 1457 Signed Impressions: Service Date/Time: Thursday, October 20, 2016 18:55 - CONCLUSION: The kidneys are small and increased in echogenicity consistent with medical renal disease. There is no hydronephrosis. There are small cysts. Saud Kowalski MD Chest X-Ray 10/20/16 1112 Signed Impressions: Service Date/Time: Thursday, October 20, 2016 11:47 - CONCLUSION: Mild left perihilar atelectasis with no other evidence of acute process. Alan Berry MD Objective Remarks GENERAL: Thin well appearing male lying in bed in no acute distress. SKIN: Warm and dry. No rashes or bruises. HEAD: Atraumatic. Normocephalic. EYES: Pupils equal and round. No scleral icterus. No injection or drainage. ENT: No nasal bleeding or discharge. Mucous membranes pink and moist. NECK: Trachea midline. No JVD. CARDIOVASCULAR: Regular rate and rhythm. Without murmur. Dressing and catheter over the right subclavian region are clean and dry. RESPIRATORY: No accessory muscle use. Clear to auscultation. Breath sounds equal bilaterally. GASTROINTESTINAL: Abdomen soft, non-tender, nondistended. Hepatic and splenic margins not palpable. New PermCath noted at lower abdomen, site is clean and dry , difficult for patient to move around. Bowel sounds hypoactive. MUSCULOSKELETAL: Extremities without clubbing, cyanosis, or edema. R 5th digit amputated. No calf tenderness. Negative Homans. NEUROLOGICAL: Awake and alert. Oriented 4. No obvious cranial nerve deficits. Motor grossly within normal limits. Five out of 5 muscle strength in the arms and legs. Normal speech. He is walking around the room without difficulty. PSYCHIATRIC: Appropriate mood and affect; insight and judgment normal. Medications and IVs Inpatient Medications Acetaminophen (Tylenol) 650 mg UNSCH PRN PO for headach, pain, temp > 101F; Start 10/20/16 at 17:30 Acetaminophen/ Hydrocodone Bitart ([place] 5-325 Mg) 1 tab Q6H PRN PO PAIN GREATER THAN 5 Last administered on 10/21/16 22:03; Start 10/21/16 at 21:00; Stop 10/25/16 at 10:02; Status DC Acetaminophen/ Hydrocodone Bitart ([place] 7.5-325 Mg) 1 tab Q4H PRN PO PAIN SCALE 1 TO 5; Start 10/25/16 at 09:45 Acetaminophen/ Hydrocodone Bitart ([place] 10-325 Mg) 1 tab Q4H PRN PO PAIN 6-10 Last administered on 10/26/16 01:02; Start 10/25/16 at 09:45 Albumin Human (Albumin 25% Inj) 25 gm UNSCH PRN IV WITH DIALYSIS; Start at 17:30 Amlodipine Besylate (Norvasc) 5 mg BID PO Last administered on 10/26/16 09:00 ; Start 10/20/16 at 18:30 Amlodipine Besylate 5 mg 5 mg DAILY PO ; Start 10/21/16 at 09:00; Stop 10/21/16 at 09:00; Status DC Atenolol (Tenormin) 50 mg DAILY@18 PO Last administered on 10/25/16 18:15; Start 10/20/16 at 18:00 Calcium Acetate (Phoslo) 667 mg TID PO Last administered on 10/26/16 09:00; Start 10/21/16 at 18:00 Calcium Gluconate (Calcium Gluconate Inj) 1 gm ONCE ONCE IV Last administered on 10/20/16 14:38; Start 10/20/16 at 14:00; Stop 10/20/16 at 14:08; Status DC Cefazolin Sodium/ Dextrose (Ancef 2 Gm Premix) 50 ml @ 100 mls/hr [employer] IV Last administered on 10/21/16 13:49; Start 10/21/16 at 07:45; Stop 10/25/16 at 07:44; Status DC Cholecalciferol (Vitamin D3) 5,000 units DAILY PO Last administered on 09:00; Start 10/23/16 at 09:00 Clonidine (Catapres) 0.1 mg UNSCH PRN PO for BP > 180/100 X 2 readings; Start 10/20/16 at 17:30 Dextrose (D50w (Vial) Inj) 50 ml ONCE ONCE IV PUSH Last administered on 14:38; Start 10/20/16 at 14:00; Stop 10/20/16 at 14:08; Status DC Diphenhydramine HCl (Benadryl) 25 mg UNSCH PRN PO for hives/itching/anaphylaxis ; Start 10/20/16 at 17:30 Famotidine (Pepcid) 10 mg BID PO Last administered on 10/26/16 09:00; Start at 21:00 Gelatin (Gelfoam 12 Mm/7 Mm Top) 1 foam UNSCH PRN TOP SEE LABEL COMMENTS; Start 10/20/16 at 17:30 Gentamicin Sulfate (Gentamicin (Dialysis) Inj) 20 mg UNSCH PRN IV WITH DIALYSIS Last administered on 10/24/16 12:17; Start 10/20/16 at 17:30 Heparin Sodium (Porcine) (Heparin Inj) UNSCH PRN IVF SEE PROTOCOL; Start 10/21 at 14:15 Heparin Sodium (Porcine) 5000 units 5,000 units Q12HR SQ Last administered on 23:06; Start 10/20/16 at 21:30; Status Hold Heparin Sodium (Porcine) 8000 units 8,000 units UNSCH PRN IVF WITH DIALYSIS; Start 10/20/16 at 17:30 Hydralazine HCl (Apresoline) 10 mg Q6HR PRN PO SBP>160, DBP>90 Last administered on 10/20/16 20:45; Start 10/20/16 at 14:15 Hydrochlorothiazide (Microzide) 12.5 mg DAILY PO ; Start 10/21/16 at 09:00; Stop 10/21/16 at 09:00; Status DC Insulin Human Regular (NovoLIN R INJ) See Protocol Table ... UNSCH X1 PRN SQ SEE PROTOCOL; Start 10/24/16 at 05:00; Stop 10/25/16 at 04:59; Status DC IV Flush (NS Flush) 2 ml BID IVF Last administered on 10/26/16 09:03; Start at 21:00 Lactated Ringer's 1,000 ml @ 30 mls/hr Q24H IV Last administered on 10/25/16 06:44; Start 10/24/16 at 05:00 Mannitol (Mannitol Inj) 12.5 gm UNSCH PRN IV WITH DIALYSIS; Start 10/20/16 at 17:30 Miscellaneous Information (Post-op Orders (for Pharmacy)) STAT ONCE XX ; Start 10/25/16 at 09:45; Stop 10/25/16 at 10:03; Status DC Morphine Sulfate (Morphine Inj) 4 mg Q3H PRN IV PUSH BREAKTHROUGH PAIN Last administered on 10/25/16 18:19; Start 10/25/16 at 09:45 Nitroglycerin (Nitrostat Sl) 0.4 mg UNSCH PRN SL CHEST PAIN; Start 10/20/16 at 17:30 Ondansetron HCl (Zofran Inj) 4 mg UNSCH PRN IV WITH DIALYSIS Last administered on 10/25/16 10:50; Start 10/20/16 at 17:30 Paricalcitol (Zemplar Inj) 1 mcg WITH DIALYSIS IV Last administered on 12:16; Start 10/22/16 at 14:15 Polyethylene Glycol (Miralax) 17 gm DAILY PRN PO CONSTIPATION Last administered on 10/22/16 17:43; Start 10/22/16 at 17:45 Senna/Docusate Sodium 1 tab 1 tab BID PO Last administered on 10/26/16 09:00; Start 10/22/16 at 21:00 Sodium Chloride (NS 1000 ml Inj) 1,000 ml @ 0 mls/hr Q0M PRN IV WITH DIALYSIS; Start 10/20/16 at 17:20 Sodium Chloride (NS 500 ml Inj) 500 ml @ 30 mls/hr [id number] IV Last administered on 10/24/16 22:00; Start 10/24/16 at 05:00; Stop 10/25/16 at 04:59 ; Status DC Sodium Chloride/ Sodium Bicarbonate/ Sterile Water (Sodium Chloride 23.4% Inj/ Sodium Bicarbonate 8.4% Inj/Sterile Water For Inj) 1,084.625 ml @ 65 mls/hr [id number] IV Last administered on 10/22/16 12:19; Start 10/20/16 at 16:00; Stop 10/22/16 at 14:03; Status DC Vancomycin HCl 1000 mg/Sodium Chloride 250 ml @ 250 mls/hr [employer] IV Last administered on 10/21/16t 12:30; Start 10/21/16 at 07:45; Stop 10/25/16 at 07:44 ; Status DC (Adilene Wells MD R1) Urinary Catheter: No (Adilene Wells MD R1) Vascular Central Line Catheter: No (Adilene Wells MD R1) A/P Assessment and Plan Mr. Ramirez is a pleasant 61-year-old black male, presenting with 2 weeks of generalized fatigue, elevated blood pressures, as well as worsening kidney function. 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 He received PermCath catheter placement by IR on 10/21. General surgery was consulted for long-term catheter placement, which was performed 10/25/16. He will be set up for dialysis as outpatient. Discharge Planning Pending discharge planning per nephrology. Case management aware. (Adilene Wells MD R1) Attending Attestation Patient examined and case discussed with resident physicians I have read the bone agree with assessment/plan as discussed with me I was involved in all medical decision making for this patient Joce Paz M.D. (Joce Paz MD) Problem List: (1) Renal failure (ARF), acute on chronic Status: Acute Plan: GFR on admission 9, stable. Likely secondary to worsening nephrosclerosis as a result of his hypertension. Patient does also have hepatitis C infection, with high viral load, though LFTs are normal. Urinalysis did not show any signs of infection. Normal urination on admission. -Renal US 10/20: small and echogenic consistent with medical renal disease -Consult nephrology, appreciate their assistance. Hemodialysis counseling and planning initiated as a patient. -Planning for peritoneal hemodialysis, Gen. surgery placed a PD catheter 10/25 -Monitor ins and outs - currently awaiting UOP postprocedure, will straight cath if indicated -Monitor BMP (2) Hyponatremia Status: Acute Plan: Noted to have a sodium of 130 yesterday and 131 today. He did have 2 episodes of vomiting but after procedure, which included anesthesia and had 2 large meals prior to this. No evidence of lethargy, AMS. -Will recheck BMP this afternoon at 1300 (3) Hyperphosphatemia Status: Acute Plan: Increase in serum phosphorus from 4.6 to 6.8 over the last 24 hours. Due for dialysis on 10/27. Goal phoshorus level is 3.5-5.5 mg/dl per K/DOQI guidelines. -restrict dietary phosphate to 900 mg/day -rechecking BMP today at 1300, will add phosphorus level -If persistently elevated, will require dietary counseling and possible phosphate binder as outpatient (4) HTN (hypertension) Status: Chronic Plan: Blood pressure of 179/106 on admission. Within normal limits until 10/25, now some hypertension likely secondary to pain. -Continue with clonidine 0.3 mg 3 times a day, atenolol 50 mg daily, amlodipine 5 mg twice a day. -Hydralazine 10 mg by mouth when necessary systolic > 160, diastolic > 100. -Echocardiogram: Within normal limits, EF 60% -US Carotids: No significant stenosis (5) Hepatitis C antibody test positive Status: Acute Plan: Hepatitis profile was collected at admission to rule out renal insufficiency secondary to acute hepatitis. Check hepatitis C RNA titer levels and genotype --> viral load is greater than 1 million Will need to be treated as an outpatient (6) Hyperkalemia Status: Resolved Plan: Resolved. Potassium was 5.5 on admission. Now wnl. Continue to monitor BMP (7) GERD (gastroesophageal reflux disease) Status: Chronic Plan: Continue Pepcid at home dose 10 mg twice a day (8) Fluids/Electrolytes/Nutrition/Prophylaxis Status: Acute Plan: Fluids: Per nephrology Electrolytes: monitor and replete as needed Nutrition: Renal Diet DVT Prophylaxis: restart Heparin 5000U subQ q12hr on 10/26/bilateral SCDs GI Prophylaxis: Pepcid home dose (Adilene Wells MD R1) Problem Qualifiers (1) HTN (hypertension): Qualified Code: I10 - Essential hypertension Adilene Wells MD R1 Oct 26, 2016 08:15 Joce Paz MD Oct 26, 2016 11:28
[2016-10-26] MEDS: DOCUSATE SODIUM 50 MG/SENNA 8.6 MG TAB PO SCH ×2 (09:00→21:21)
[2016-10-26] MEDS: FAMOTIDINE 20 MG TAB PO SCH ×2 (09:00→21:21)
[2016-10-26] MEDS: CALCIUM ACETATE 667 MG CAP PO SCH ×3 (09:00→19:16)
[2016-10-26] MEDS: CHOLECALCIFEROL (VIT D3) 5000 UNIT CAP PO SCH (09:00)
[2016-10-26] MEDS: amLODIPine BESYLATE 5 MG TAB PO SCH ×2 (09:00→21:21)
[2016-10-26] MEDS: cloNIDine HCL 0.3 MG TAB PO SCH ×3 (09:00→19:16)
[2016-10-26] MEDS: SODIUM CHLORIDE 0.9% FLUSH 5 ML FLUSH IVF SCH ×2 (09:03→21:21)
--- NOTE | 2016-10-26 12:30 | HHI.NPPN ---
Subjective History of Present Illness 61 year old with CKD 5 now has ESRD started on hemodialysis Additional Remarks Patient is alert, abd. pain is better, no SOB, just passed urine twice, small amount. Review of Systems General Constitutional: Fatigue Objective Data Data 10/25/16 10/26/16 19:00 07:00 Intake Total 840 ml Output Total 1025 ml Balance -185 ml Intake Oral 240 ml Other 600 ml Emesis 1000 ml Estimated Blood Loss 25 ml # Voids 0 0 # Bowel Movements 0 Vital Signs Date Time Temp Pulse Resp B/P Pulse Ox O2 Delivery O2 Flow Rate FiO2 10/26/16 12:00 98.4 79 18 125/78 100 10/26/16 08:00 98.7 79 18 119/78 99 10/26/16 04:00 98.1 74 18 117/78 100 10/26/16 01:27 Room Air 10/26/16 01:27 79 10/26/16 00:00 98.0 75 18 112/70 97 10/25/16 20:00 98.2 97 18 114/74 99 10/25/16 16:00 98.1 69 18 133/83 100 -: 10/26/16 0655 10/26/16 0655 Physical Exam General Appearance: No Acute Distress, Comfortable Eyes Eye Exam: Pupils Equal Neck Neck Exam: Neck Supple Pulmonary Resp Exam: Clear Bilaterally, Breath Sounds Equal Cardiology CV Exam: Regular, Good Perfusion Gastrointestinal/Abdomen GI Exam: Soft, Non-Tender, Bowel Sounds Present Integumentary Skin Exam: Clear Extremeties Extremities Exam: No Edema Neurologic Neuro Exam: Alert, Awake Assessment/Plan Problem List: (1) ESRD (end stage renal disease) Plan: HD done yesterday. Now has PD Catheter done. Continue HD for now MWF, possible D/C once out patient HD arranged. started on PhosLo PTH high Zemplar with HD/Vit D Low oral supplements. HD in AM. (2) Renal failure (ARF), acute on chronic Plan: Known advanced renal dysfunction, CKD 5 (3) Hyperkalemia Plan: resolved (4) HTN (hypertension) Plan: BP is better Problem Qualifiers (1) HTN (hypertension): Qualified Code: I10 - Essential hypertension Singh Villela MD Oct 26, 2016 12:30
[2016-10-26] MEDS ORDERED: CALCIUM ACETATE 667 MG CAP PO SCH (13:00)
--- NOTE | 2016-10-26 13:33 | HHI.PR ---
Subjective Subjective Notes DAILY PROGRESS NOTE FOR SURGICAL ATTENDING, DR. MARCELLO MAGAÑA I feel much better today Objective Vitals/I&O Vital Signs Date Time Temp Pulse Resp B/P Pulse Ox O2 Delivery O2 Flow Rate FiO2 10/26/16 12:00 98.4 79 18 125/78 100 10/26/16 01:27 Room Air 10/25/16 10:00 2 10/25/16 08:00 21 Labs Laboratory Tests Test 10/26/16 06:55 White Blood Count 6.8 Red Blood Count 3.97 Hemoglobin 12.5 Hematocrit 36.8 Mean Corpuscular Volume 92.7 Mean Corpuscular Hemoglobin 31.3 Mean Corpuscular Hemoglobin 33.8 Concent Red Cell Distribution Width 13.9 Platelet Count 152 Mean Platelet Volume 8.4 Neutrophils (%) (Auto) 51.6 Lymphocytes (%) (Auto) 31.5 Monocytes (%) (Auto) 14.1 Eosinophils (%) (Auto) 2.4 Basophils (%) (Auto) 0.4 Neutrophils # (Auto) 3.5 Lymphocytes # (Auto) 2.1 Monocytes # (Auto) 1.0 Eosinophils # (Auto) 0.2 Basophils # (Auto) 0.0 CBC Comment DIFF FINAL Differential Comment Sodium Level 131 Potassium Level 5.1 Chloride Level 92 Carbon Dioxide Level 26.7 Anion Gap 12 Blood Urea Nitrogen 56 Creatinine 8.34 Estimat Glomerular Filtration 8 Rate Random Glucose 95 Calcium Level 8.4 Phosphorus Level 6.8 Magnesium Level 2.2 Total Bilirubin 0.6 Aspartate Amino Transf 42 (AST/SGOT) Alanine Aminotransferase 27 (ALT/SGPT) Alkaline Phosphatase 59 Total Protein 6.8 Albumin 3.1 Radiology Last Impressions Catheter Placement X-Ray 10/21/16 1659 Signed Impressions: Service Date/Time: Friday, October 21, 2016 12:33 - CONCLUSION: Uncomplicated PermaCath placement as above. Satinder Khanna Jr., MD Carotid Artery Ultrasound 10/21/16 0000 Signed Impressions: Service Date/Time: Friday, October 21, 2016 23:18 - CONCLUSION: Mild calcified and noncalcified plaque at the carotid bulbs. No evidence of hemodynamically significant carotid stenosis. Anupam Antoine MD Renal Ultrasound 10/20/16 1457 Signed Impressions: Service Date/Time: Thursday, October 20, 2016 18:55 - CONCLUSION: The kidneys are small and increased in echogenicity consistent with medical renal disease. There is no hydronephrosis. There are small cysts. Saud Kowalski MD Chest X-Ray 10/20/16 1112 Signed Impressions: Service Date/Time: Thursday, October 20, 2016 11:47 - CONCLUSION: Mild left perihilar atelectasis with no other evidence of acute process. Aaln Berry MD Abdomen: Post-op tenderness A/P Problem List: (1) ESRD (end stage renal disease) Assessment and Plan Status post PD catheter Doing well Attending Statement NOTE FOR SURGICAL ATTENDING, DR. MARCELLO MAGAÑA I attest that I had a [id number] encounter with the patient on the same day , and personally performed and documented my assessment and findings in the medical record. The following services were provided during this hospital visit: Chart data review, vital sign assessments/reviewing monitor data Review of consultations notes if present. Medication orders/review and/or management Ordering and/or reviewing lab tests Ordering and/or interpreting/reviewing x-rays and/or diagnostic studies Care of the patient and discussion of the patient with the care team Documentation time To help prompt me to consider important information that might be impacting today's encounter and assessment, information from prior notes written by myself or my colleagues may have been "brought forward/copy and pasted" into today's note. Marcello Magaña MD Oct 26, 2016 13:33
[2016-10-26] MEDS: MORPHINE SULFATE 4 MG/ML INJ IV PUSH PRN (14:50)
[2016-10-26] MEDS: ATENOLOL 50 MG TAB PO SCH (19:16)
[2016-10-27] VITALS: BP 104/70; PULSE 88; RESP 20; TEMP 100.8; O2SAT 99
[2016-10-27 04:00] VITALS: BP 124/64; PULSE 80; RESP 18; TEMP 97.3; O2SAT 94
[2016-10-27] MEDS: LACTATED RINGER'S 1000 ML IV SCH (05:00)
[2016-10-27 07:17] LABS: BICARBONATE 24.7 MEQ/L (21.0-32.0); POTASSIUM 4.7 MEQ/L (3.5-5.1)
[2016-10-27 07:26] LABS: AUTOMATED NEUTROPHIL # 5.2 TH/MM3 (1.8-7.7); BASOPHIL % 0.3 % (0.0-2.0); EOSINOPHIL # 0.2 TH/MM3 (0-0.4); EOSINOPHIL % 1.9 % (0.0-4.0); HEMATOCRIT 33.5 % (39.0-51.0); HEMO FLAGS DIFF FINAL; LYMPH % 24.3 % (9.0-44.0); LYMPHOCYTE # 2.1 TH/MM3 (1.0-4.8); MEAN CELL VOLUME 92.6 FL (80.0-100.0); MEAN CORPUSCULAR HEMOGLOBIN 30.6 PG (27.0-34.0); MEAN CORPUSCULAR HGB CONC 33.1 % (32.0-36.0); MONO % 12.4 % (0.0-8.0); NEUT % 61.1 % (16.0-70.0); PLATELET COUNT 133 TH/MM3 (150-450); RED BLOOD COUNT 3.62 MIL/MM3 (4.50-5.90); RED CELL DISTRIBUTION WIDTH 13.5 % (11.6-17.2); WHITE BLOOD COUNT 8.6 TH/MM3 (4.0-11.0)
[2016-10-27] MEDS: SODIUM CHLORIDE 0.9% FLUSH 5 ML FLUSH IVF SCH (09:00)
--- NOTE | 2016-10-27 09:20 | HHI.FPPN ---
Subjective Remarks Patient feeling well today, besides right knee swelling. Thinks it's his gout because he ate meatloaf the other day and when he eats red meat, this typically happens. It feels warm and is painful to move. Denies fevers or chills. Reports no SOB or CP. No diarrhea or abdominal pain. Knows to follow up at dialysis center. He expresses appreciation for the care he has recieved. Objective Vitals Vital Signs Date Time Temp Pulse Resp B/P Pulse Ox O2 Delivery O2 Flow Rate FiO2 10/27/16 04:00 Room Air 10/27/16 04:00 97.3 80 18 124/64 94 10/27/16 00:00 Room Air 10/27/16 00:00 100.8 88 20 104/70 99 10/26/16 20:19 81 10/26/16 20:00 Room Air 10/26/16 20:00 99.5 84 18 112/70 96 10/26/16 16:00 98.9 79 18 130/85 99 10/26/16 12:00 98.4 79 18 125/78 100 I/O 10/26/16 10/26/16 10/26/16 10/27/16 10/27/16 10/27/16 07:00 15:00 23:00 07:00 15:00 23:00 Intake Total 720 ml 240 ml 180 ml Output Total 1100 ml 250 ml Balance -380 ml 240 ml -70 ml Intake Oral 720 ml 240 ml 180 ml Output Urine Total 1100 ml 250 ml # Voids 0 6 # Bowel Movements 0 0 0 Result Diagram: 10/27/16 0524 10/27/1624 Objective Remarks GENERAL: Thin well appearing male lying in bed in no acute distress. SKIN: Warm and dry. No rashes or bruises. HEAD: Atraumatic. Normocephalic. EYES: Pupils equal and round. No scleral icterus. No injection or drainage. ENT: No nasal bleeding or discharge. Mucous membranes pink and moist. NECK: Trachea midline. No JVD. CARDIOVASCULAR: Regular rate and rhythm. Without murmur. Dressing and catheter over the right subclavian region are clean and dry. RESPIRATORY: No accessory muscle use. Clear to auscultation. Breath sounds equal bilaterally. GASTROINTESTINAL: Abdomen soft, non-tender, nondistended. Hepatic and splenic margins not palpable. New PermCath noted at lower abdomen, site is clean and dry , difficult for patient to move around. Bowel sounds hypoactive. MUSCULOSKELETAL: Extremities without clubbing, cyanosis, or edema. R 5th digit amputated. No calf tenderness. Negative Homans. NEUROLOGICAL: Awake and alert. Oriented 4. No obvious cranial nerve deficits. Motor grossly within normal limits. Five out of 5 muscle strength in the arms and legs. Normal speech. He is walking around the room without difficulty. PSYCHIATRIC: Appropriate mood and affect; insight and judgment normal. A/P Assessment and Plan Mr. Ramirez is a pleasant 61-year-old black male, presenting with 2 weeks of generalized fatigue, elevated blood pressures, as well as worsening kidney function. 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 He received PermCath catheter placement by IR on 10/21. General surgery was consulted for long-term catheter placement, which was performed 10/25/16. He will be set up for dialysis as outpatient. Discharge Planning Pending discharge planning per nephrology. Case management aware. Problem List: (1) Renal failure (ARF), acute on chronic Status: Acute Plan: GFR on admission 9, stable. Likely secondary to worsening nephrosclerosis as a result of his hypertension. Patient does also have hepatitis C infection, with high viral load, though LFTs are normal. Urinalysis did not show any signs of infection. Normal urination on admission. -Renal US 10/20: small and echogenic consistent with medical renal disease -Consult nephrology, appreciate their assistance. Hemodialysis counseling and planning initiated as a patient. -Planning for peritoneal hemodialysis, Gen. surgery placed a PD catheter 10/25 -Monitor ins and outs : 1.3 L output over past 24 hr. -Monitor BMP (2) Hyponatremia Status: Acute Plan: Noted to have a sodium of 130. He did have 2 episodes of vomiting but after procedure, which included anesthesia and had 2 large meals prior to this. No evidence of lethargy, AMS. (3) Hyperphosphatemia Status: Acute Plan: Increase in serum phosphorus from 4.6 to 6.8 over the last 24 hours. Due for dialysis on 10/27. Goal phoshorus level is 3.5-5.5 mg/dl per K/DOQI guidelines. -restrict dietary phosphate to 900 mg/day -rechecking BMP today at 1300, will add phosphorus level -If persistently elevated, will require dietary counseling and possible phosphate binder as outpatient (4) Gout flare Status: Acute Plan: Right knee swelling, likely gout flare. Consider oral prednisone given kidney disease. If continuing to have fevers >100.4, would consider joint aspiration vs US. No leukocytosis on lab work. Denies any trauma to knee. (5) HTN (hypertension) Status: Chronic Plan: Blood pressure of 179/106 on admission. Within normal limits until 10/25, now some hypertension likely secondary to pain. -Continue with clonidine 0.3 mg 3 times a day, atenolol 50 mg daily, amlodipine 5 mg twice a day. -Hydralazine 10 mg by mouth when necessary systolic > 160, diastolic > 100. -Echocardiogram: Within normal limits, EF 60% -US Carotids: No significant stenosis (6) Hepatitis C antibody test positive Status: Acute Plan: Hepatitis profile was collected at admission to rule out renal insufficiency secondary to acute hepatitis. Check hepatitis C RNA titer levels and genotype --> viral load is greater than 1 million Will need to be treated as an outpatient (7) Hyperkalemia Status: Resolved Plan: Resolved. Potassium was 5.5 on admission. Now wnl. Continue to monitor BMP (8) GERD (gastroesophageal reflux disease) Status: Chronic Plan: Continue Pepcid at home dose 10 mg twice a day (9) Fluids/Electrolytes/Nutrition/Prophylaxis Status: Acute Plan: Fluids: Per nephrology Electrolytes: monitor and replete as needed Nutrition: Renal Diet DVT Prophylaxis: restart Heparin 5000U subQ q12hr on 10/26/bilateral SCDs GI Prophylaxis: Pepcid home dose wdw Dr. Paz Problem Qualifiers (1) HTN (hypertension): Qualified Code: I10 - Essential hypertension Kiko Vazquez MD R2 Oct 27, 2016 09:20
--- NOTE | 2016-10-27 09:43 | MP ---
cc: ROQUE ANDRE M.D. DATE OF SURGERY 10/25/2016 PREOPERATIVE DIAGNOSES Chronic kidney disease. Desire for peritoneal dialysis. POSTOPERATIVE DIAGNOSES Chronic kidney disease. Desire for peritoneal dialysis. PROCEDURE Laparoscopic-assisted peritoneal dialysis catheter placement. SURGEON Dr. Roque Andre ANESTHESIA General. INDICATIONS This is a 61-year-old -[place] gentleman with multiple medical issues including hepatitis C who apparently had progression of chronic kidney disease. He has had a VasCath placed for hemodialysis. He desired peritoneal dialysis. INTRAOPERATIVE FINDINGS Successful placement of curled peritoneal dialysis catheter with dependent portion in the dependent portion of the pelvis. Three cuffs on the catheter, one at the level of the abdominal wall muscle and fascia and two in the swan-neck portion of the catheter proximal to the catheter exit site. There was good port function with easy flow of fluid through the catheter with 1 liter of fluid placed in, approximately 800 mL removed. Estimated blood loss less than 5 mL. DESCRIPTION OF PROCEDURE IN DETAIL The patient was identified as John Howe Jr. James, taken to the operating room, placed in supine position. Sequential compression devices were placed on bilateral lower extremities. Following induction of adequate general endotracheal anesthesia, the patient's abdomen was prepped and draped in the usual sterile fashion with Betadine. Sequential compression devices were on bilateral lower extremities. A time-out procedure was performed. Following completion of the time-out procedure to everyone's satisfaction within the room, 0.25% Marcaine with epinephrine was placed at each incision site and along the proposed tunnel site and subcutaneous tissue for the peritoneal dialysis catheter to its proposed exit site which was marked in the left upper quadrant. A 1.5-cm transverse incision in the right lateral subcostal position was made with scalpel and dissection continued posteriorly using a hemostat and the surgeon's finger to dissect through the layers of the abdominal wall. The peritoneum was gently opened with a hemostat. The surgeon's finger confirmed intraperitoneal location. The [employer] balloon Edward 5-mm trocar was placed in the peritoneal cavity, its balloon insufflated with CO2 insufflation until a level of 15 mmHg ensued. Laparoscopic camera was placed in the peritoneal cavity. There was no evidence of intraabdominal injury from trocar placement and a right mid-abdominal 5-mm trocar was placed in the peritoneal cavity under direct laparoscopic view after incision of the skin with a scalpel. A site was selected for introduction of the peritoneal dialysis catheter, through the skin inferior and slightly left lateral to the umbilicus. Local anesthetic was placed and a 1.5-cm transverse incision was made and the 5-mm trocar was placed to the level of the peritoneum and then tunneled in the preperitoneal position down to just above the bladder and allowing it to perforate the peritoneum just above the bladder. The curled portion of the dialysis catheter was then placed through the trocar, down into the peritoneal cavity and the trocar was removed off of the catheter and out of the patient. The peritoneal dialysis catheter was able to be advanced down into the pelvis using a blunt grasper and the cuff was tunneled to the abdominal wall using a hemostat. This portion of the catheter was then tunneled using the tunneling device to a separate stab incision just inferior and right lateral to the proposed exit site. The swan-neck portion of the catheter with two cuffs was then placed through the separate stab incision above the umbilicus and tunneled using Yasmin tunneler to the proposed exit site, placing the two cloth cuffs into the subcutaneous tissue. Each catheter which has now bee placed was cut into an appropriate size and the titanium inter-connector was placed between the two catheters using 2-0 silk ties to tie the catheter to the titanium connector and this was placed into the subcutaneous tissue nicely. Titanium caps were then placed on the end of the catheter and about 1 liter of fluid was run through the catheter without evidence of obstruction and about 800 cc of fluid was returned through the catheter, 200 cc being intentionally left behind. The plastic tip was placed on the titanium caps. The photographs were taken of completed placement of the catheter and a normal-appearing appendix. No other intraabdominal abnormality was identified. The abdomen was actively desufflated after removal of the 5-mm trocar through the right lateral subcostal trocar site. This trocar was removed and the anterior fascia was closed with an interrupted [id number] 2-0 Vicryl suture. Skin incisions were approximated with 4-0 Monocryl subcuticular sutures. Dressings were applied, Mastisol and 1/2-inch brown Steri-Strips. Biopatch was placed around the peritoneal dialysis catheter exit site and 4x4s and a large Tegaderm were used to completely cover the peritoneal dialysis catheter outside the abdominal cavity. The patient tolerated the procedure without apparent complication. Sponge, needle and instrument counts were correct at the end of the case. MD WILLIAMS Adrian/DAVID /9:33 AM /9:32 AM
[2016-10-27] MEDS: HEPARIN SODIUM - IV 10,000 UNITS/10 ML VIAL PRN (10:24)
[2016-10-27] MEDS: GENTAMICIN SULFATE (DIALYSIS USE ONLY) 20 MG/2 ML VIAL IV PRN (10:24)
[2016-10-27] MEDS: PARICALCITOL IV SCH (10:25)
--- NOTE | 2016-10-27 10:52 | HHI.PR ---
Subjective Subjective Notes Resting in bed Pain controlled Wants medications to help with BM Objective Vitals/I&O Vital Signs Date Time Temp Pulse Resp B/P Pulse Ox O2 Delivery O2 Flow Rate FiO2 10/27/16 04:00 Room Air 10/27/16 04:00 97.3 80 18 124/64 94 10/26/16 08:00 21 10/25/16 10:00 2 Labs Laboratory Tests Test 10/27/16 05:24 White Blood Count 8.6 Red Blood Count 3.62 Hemoglobin 11.1 Hematocrit 33.5 Mean Corpuscular Volume 92.6 Mean Corpuscular Hemoglobin 30.6 Mean Corpuscular Hemoglobin 33.1 Concent Red Cell Distribution Width 13.5 Platelet Count 133 Mean Platelet Volume 8.7 Neutrophils (%) (Auto) 61.1 Lymphocytes (%) (Auto) 24.3 Monocytes (%) (Auto) 12.4 Eosinophils (%) (Auto) 1.9 Basophils (%) (Auto) 0.3 Neutrophils # (Auto) 5.2 Lymphocytes # (Auto) 2.1 Monocytes # (Auto) 1.1 Eosinophils # (Auto) 0.2 Basophils # (Auto) 0.0 CBC Comment DIFF FINAL Differential Comment Sodium Level 130 Potassium Level 4.7 Chloride Level 91 Carbon Dioxide Level 24.7 Anion Gap 14 Blood Urea Nitrogen 68 Creatinine 9.32 Estimat Glomerular Filtration 7 Rate Random Glucose 93 Calcium Level 8.7 Phosphorus Level 6.7 Radiology Last Impressions Catheter Placement X-Ray 10/21/16 1659 Signed Impressions: Service Date/Time: Friday, October 21, 2016 12:33 - CONCLUSION: Uncomplicated PermaCath placement as above. Satinder Khanna Jr., MD Carotid Artery Ultrasound 10/21/16 0000 Signed Impressions: Service Date/Time: Friday, October 21, 2016 23:18 - CONCLUSION: Mild calcified and noncalcified plaque at the carotid bulbs. No evidence of hemodynamically significant carotid stenosis. Anupam Antoine MD Renal Ultrasound 10/20/16 1457 Signed Impressions: Service Date/Time: Thursday, October 20, 2016 18:55 - CONCLUSION: The kidneys are small and increased in echogenicity consistent with medical renal disease. There is no hydronephrosis. There are small cysts. Saud Kowalski MD Chest X-Ray 10/20/16 1112 Signed Impressions: Service Date/Time: Thursday, October 20, 2016 11:47 - CONCLUSION: Mild left perihilar atelectasis with no other evidence of acute process. Alan Berry MD Cardiovascular: Regular Lungs: Clear Abdomen: Other (PD cath in place; dressing in place c/d/i; abdomen soft ) Extremities: No edema A/P Problem List: (1) ESRD (end stage renal disease) Assessment and Plan 61 year old male POD2 lap PD cath placement -Renal diet -Pain controlled -Change dressing daily and PRN -GS will sign off -Please call with questions -Follow up with Dr. Chris 2-4 weeks Keren Shen Oct 27, 2016 10:52
--- NOTE | 2016-10-27 11:04 | HHI.DCPOC ---
Discharge Care Plan Diagnosis: (1) Gout flare (2) Hyponatremia (3) ESRD (end stage renal disease) (4) Near syncope Goals to Promote Your Health * To prevent worsening of your condition and complications * To maintain your health at the optimal level Directions to Meet Your Goals Take your medications as prescribed Follow your dietary instruction Follow activity as directed Keep your appointments as scheduled Take your immunizations and boosters as scheduled If your symptoms worsen call your PCP, if no PCP go to Urgent Care Center or Emergency Room Smoking is Dangerous to Your Health. Avoid second hand smoke Call the 24-hour hour crisis hotline for domestic abuse at Kiko Vazquez MD R2 Oct 27, 2016 11:03
[2016-10-27 11:30] VITALS: PULSE 79
[2016-10-27] MEDS: CALCIUM ACETATE 667 MG CAP PO SCH ×2 (12:25→12:52)
[2016-10-27] MEDS: DOCUSATE SODIUM 50 MG/SENNA 8.6 MG TAB PO SCH (12:25)
[2016-10-27] MEDS: FAMOTIDINE 20 MG TAB PO SCH (12:25)
[2016-10-27] MEDS: amLODIPine BESYLATE 5 MG TAB PO SCH (12:25)
[2016-10-27] MEDS: cloNIDine HCL 0.3 MG TAB PO SCH ×2 (12:26→12:52)
[2016-10-27] MEDS: CHOLECALCIFEROL (VIT D3) 5000 UNIT CAP PO SCH (12:26)
[2016-10-27] MEDS: ACETAMINOPHEN/HYDROcodone 325 MG/10 MG TAB PO PRN (12:26)
[2016-10-27] MEDS ORDERED: PRED20 PO ×2 (12:40→12:42)
[2016-10-27] MEDS ORDERED: WHEEMIS3 ×2 (13:31→13:32)
--- NOTE | 2016-10-28 10:41 | HHI.DS ---
Discharge Summary Admission Date Oct 20, 2016 at 14:04 Discharge Date: Oct 27, 2016 Admitting Diagnosis Acute on chronic renal failure; hyperkalemia (1) Renal failure (ARF), acute on chronic Diagnosis: Principal Plan: GFR on admission 9, stable. Likely secondary to worsening nephrosclerosis as a result of his hypertension. Patient does also have hepatitis C infection, with high viral load, though LFTs are normal. Urinalysis did not show any signs of infection. Normal urination on admission. -Renal US 10/20: small and echogenic consistent with medical renal disease -Consult nephrology, appreciate their assistance. Hemodialysis counseling and planning initiated as a patient. -Planning for peritoneal hemodialysis, Gen. surgery placed a PD catheter 10/25 -Monitor ins and outs : 1.3 L output over last 24 hours of hospital stay -Monitor BMP (2) Hyponatremia Diagnosis: Secondary Plan: Noted to have a sodium of 130. He did have 2 episodes of vomiting but after procedure, which included anesthesia and had 2 large meals prior to this. No evidence of lethargy, AMS. recommend monitor as outpatient (3) Hyperphosphatemia Diagnosis: Secondary Plan: Increase in serum phosphorus from 4.6 to 6.8 over the last 24 hours. Due for dialysis on 10/27. Goal phoshorus level is 3.5-5.5 mg/dl per K/DOQI guidelines. -restrict dietary phosphate to 900 mg/day -rechecking BMP today at 1300, will add phosphorus level -If persistently elevated, will require dietary counseling and possible phosphate binder as outpatient (4) Gout flare Diagnosis: Secondary Plan: Acute. Right knee swelling, likely gout flare. New since 10/27. Initiate oral prednisone given kidney disease. If continuing to have fevers >100.4, would consider joint aspiration vs US. No leukocytosis on lab work. Denies any trauma to knee. (5) HTN (hypertension) Diagnosis: Secondary Plan: Blood pressure of 179/106 on admission. Within normal limits until 10/25, now some hypertension likely secondary to pain. -Continue with clonidine 0.3 mg 3 times a day, atenolol 50 mg daily, amlodipine 5 mg twice a day. -Hydralazine 10 mg by mouth when necessary systolic > 160, diastolic > 100. -Echocardiogram: Within normal limits, EF 60% -US Carotids: No significant stenosis (6) Hepatitis C antibody test positive Diagnosis: Secondary Plan: Hepatitis profile was collected at admission to rule out renal insufficiency secondary to acute hepatitis. Check hepatitis C RNA titer levels and genotype --> viral load is greater than 1 million Will need to be treated as an outpatient (7) Hyperkalemia Diagnosis: Secondary Plan: Resolved. Potassium was 5.5 on admission. Now wnl. Continue to monitor BMP (8) GERD (gastroesophageal reflux disease) Diagnosis: Secondary Plan: Continue Pepcid at home dose 10 mg twice a day Consultants Nephrology, IR, general surgery Procedures Dialysis Brief History James is a 61-year-old black male, with a past medical history of uncontrolled hypertension, chronic kidney disease, and hepatitis C, presenting with 2 weeks of generalized malaise and weakness. He was seen today at a dialysis center and was urged to come to the emergency department, particularly regarding his worsening creatinine and elevated blood pressures. History of present illness: For the past 2 weeks he has been having High blood pressure as checked by his alpine guide. He does report an intermittent headache, that is relieved with Tylenol extra strength. In addition to dealing with elevated blood pressures, he has also been noticing that over the past 2 weeks he has been having dizziness that has got worse over the past 48 hours. He also reports nausea, vomiting, and not able to hold down solid foods until a couple of days ago. Approximately one week ago he also suffered from diarrhea persistently, however this has resolved. He reports losing 10-15 pounds over the past several weeks. CBC/BMP: 10/27/16 0524 10/27/16 0524 Significant Findings Laboratory Tests Test 10/25/16 10/26/16 10/27/16 11:25 06:55 05:24 Red Blood Count 4.44 MIL/MM3 3.97 MIL/MM3 3.62 MIL/MM3 (4.50-5.90) (4.50-5.90) (4.50-5.90) Monocytes (%) (Auto) 10.3 % 14.1 % 12.4 % (0.0-8.0) (0.0-8.0) (0.0-8.0) Monocytes # (Auto) 1.0 TH/MM3 1.0 TH/MM3 1.1 TH/MM3 (0-0.9) (0-0.9) (0-0.9) Sodium Level 130 MEQ/L 131 MEQ/L 130 MEQ/L (136-145) (136-145) (136-145) Chloride Level 93 MEQ/L 92 MEQ/L 91 MEQ/L (98-107) (98-107) (98-107) Carbon Dioxide Level 19.8 MEQ/L (21.0-32.0) Anion Gap 17 MEQ/L (5-15) Blood Urea Nitrogen 48 MG/DL (7-18) 56 MG/DL (7-18) 68 MG/DL (7-18) Creatinine 6.99 MG/DL 8.34 MG/DL 9.32 MG/DL (0.60-1.30) (0.60-1.30) (0.60-1.30) Estimat Glomerular Filtration 10 ML/MIN (>89) 8 ML/MIN (>89) 7 ML/MIN (>89) Rate Random Glucose 137 MG/DL (74-106) Calcium Level 8.0 MG/DL 8.4 MG/DL (8.5-10.1) (8.5-10.1) Aspartate Amino Transf 53 U/L (15-37) 42 U/L (15-37) (AST/SGOT) Hemoglobin 12.5 GM/DL 11.1 GM/DL (13.0-17.0) (13.0-17.0) Hematocrit 36.8 % 33.5 % (39.0-51.0) (39.0-51.0) Phosphorus Level 6.8 MG/DL 6.7 MG/DL (2.5-4.9) (2.5-4.9) Albumin 3.1 GM/DL (3.4-5.0) Platelet Count 133 TH/MM3 (150-450) Imaging Last Impressions Catheter Placement X-Ray 10/21/16 1659 Signed Impressions: Service Date/Time: Friday, October 21, 2016 12:33 - CONCLUSION: Uncomplicated PermaCath placement as above. Satinder Khanna Jr., MD Carotid Artery Ultrasound 10/21/16 0000 Signed Impressions: Service Date/Time: Friday, October 21, 2016 23:18 - CONCLUSION: Mild calcified and noncalcified plaque at the carotid bulbs. No evidence of hemodynamically significant carotid stenosis. Anupam Antoine MD Renal Ultrasound 10/20/16 1457 Signed Impressions: Service Date/Time: Thursday, October 20, 2016 18:55 - CONCLUSION: The kidneys are small and increased in echogenicity consistent with medical renal disease. There is no hydronephrosis. There are small cysts. Saud Kowalski MD Chest X-Ray 10/20/16 1112 Signed Impressions: Service Date/Time: Thursday, October 20, 2016 11:47 - CONCLUSION: Mild left perihilar atelectasis with no other evidence of acute process. Alan Berry MD PE at Discharge GENERAL: Thin well appearing male lying in bed in no acute distress. SKIN: Warm and dry. No rashes or bruises. HEAD: Atraumatic. Normocephalic. EYES: Pupils equal and round. No scleral icterus. No injection or drainage. ENT: No nasal bleeding or discharge. Mucous membranes pink and moist. NECK: Trachea midline. No JVD. CARDIOVASCULAR: Regular rate and rhythm. Without murmur. Dressing and catheter over the right subclavian region are clean and dry. RESPIRATORY: No accessory muscle use. Clear to auscultation. Breath sounds equal bilaterally. GASTROINTESTINAL: Abdomen soft, non-tender, nondistended. Hepatic and splenic margins not palpable. New PermCath noted at lower abdomen, site is clean and dry , difficult for patient to move around. Bowel sounds hypoactive. MUSCULOSKELETAL: Extremities without clubbing, cyanosis, or edema. R 5th digit amputated. No calf tenderness. Negative Homans. NEUROLOGICAL: Awake and alert. Oriented 4. No obvious cranial nerve deficits. Motor grossly within normal limits. Five out of 5 muscle strength in the arms and legs. Normal speech. He is walking around the room without difficulty. PSYCHIATRIC: Appropriate mood and affect; insight and judgment normal. Hospital Course 61-year-old male admitted with a history of acute on chronic CKD and hypertension with symptoms of syncope, headache. Nephrology was consulted at admission, diagnosis of ESRD was made, and plan to initiate dialysis was made. He received dialysis MWF by permacath inserted into the right IJ on 10/21. He was initiated on a MWF schedule via permacath and plans were made to install PD catheter into the abdomen while inpatient. This was performed on 10/25. He symptomatically improved shortly after admission, with blood pressure being well controlled on medications noted above. He incidentally had new onset of right knee pain on the last day of admission, after eating high protein meals this stay. He was diagnosed with acute gouty flare and prescription for prednisone 20 mg twice a day was given to patient. To follow-up as an outpatient as nephrology and PCP to monitor clinical improvement. The plan for this patient is to have monitored peritoneal dialysis for at least 2 weeks while titrating his dialysis needs. He will then be able to proceed with dialysis at home. Outpatient dialysis was set up by case management on 10/27, and he is to go to the Center in the next 1-2 days. Patient was discharged on in stable condition. He was given a wheelchair due to gouty flare and the need to get to dialysis. Pt Condition on Discharge: Stable Discharge Disposition: Discharge Home Discharge Instructions DIET: Follow Instructions for: Renal Failure Diet Activities you can perform: Weight Bearing as Sravan Follow up Referrals: Surgical - 3 Weeks with Darnell Chris MD New Medications: Prednisone (Prednisone) 20 Mg Tab 20 MG PO BID #60 Ref 0 TAB Wheelchair (Wheelchair) 1 Mis Mis 1 EA .ROUTE DIRECTED #1 Ref 0 EA Amlodipine (Norvasc) 5 Mg Tab 5 MG PO BID #60 Ref 0 TAB Calcium Acetate (Phosphate Bin (Calcium Acetate) 667 Mg Cap 667 MG PO TID #90 Ref 0 CAP Cholecalciferol (Vitamin D3) 5,000 Unit Cap 5000 UNITS PO DAILY #30 Ref 0 CAP Sennosides-Docusate Sodium (Senna Plus 8.6-50 mg) 1 Tab Tab 1 TAB PO BID #60 Ref 0 TAB Continued Medications: Atenolol (Atenolol) 50 Mg Tab 50 MG PO DAILY Blood Pressure Management #30 Ref 0 TAB Clonidine (Clonidine) 0.3 Mg Tab 0.3 MG PO TID Blood Pressure Management #60 Ref 0 TAB Ranitidine (Ranitidine) 150 Mg Cap 150 MG PO BID #60 Ref 0 CAP Adilene Wells MD R1 Oct 28, 2016 10:41
== END 2016-10-27 13:30 | disposition home or self-care (01) | DRG 981 ==
LOC: NEPE 10:40 → NEDA 12:51 → OBSVTOIN 14:04 → N04B 16:12
PROVIDERS: ADMIT Family Medicine; ATTEND Family Medicine
PROC: 05HM33Z Insertion of Infusion Device into Right Internal Jugular Vein, Percutaneous Approach (ICD-10-PCS; 2016-10-21)
PROC: 5A1D60Z (ICD-10-PCS; 2016-10-21)
PROC: 0WHG43Z Insertion of Infusion Device into Peritoneal Cavity, Percutaneous Endoscopic Approach (ICD-10-PCS; principal; 2016-10-25 08:07)
DX: I12.0 Hypertensive chronic kidney disease with stage 5 chronic kidney disease or end stage renal disease (principal); N18.6 End stage renal disease; E87.1 Hypo-osmolality and hyponatremia; E87.5 Hyperkalemia; B18.2 Chronic viral hepatitis C; K21.9 Gastro-esophageal reflux disease without esophagitis; F17.210 Nicotine dependence, cigarettes, uncomplicated; M19.90 Unspecified osteoarthritis, unspecified site; M10.9 Gout, unspecified; E83.39 Other disorders of phosphorus metabolism; R55 Syncope and collapse; Z91.11 Patient's noncompliance with dietary regimen
CPT/HCPCS: 36558; 71010; 76775; 76937; 77001; 80048; 80053; 80074; 81001; 82306; 83735; 83970; 84100; 85007; 85025; 85027; 85610; 85730; 86850; 86900; 86901; 86920; 87522; 87902; 90935; 93005; 93306; 93880; 94150; 96374; 96375; 99152; 99153; C1750; C1769; J0610; J0690; J1580; J1644; J1815; J2250; J2270; J2370; J2405; J2501; J2710; J3010; J3370; J7040; J7050; J7120

== ENCOUNTER 2017-01-02 14:37 | Inpatient (IN) | payer MEDICARE, OTHER ==
[~2017-01-02] VITALS: Ht 170.2 cm; Wt 72.9 kg
[2017-01-02] VITALS (12 sets, daily range): BP systolic 137–197; BP diastolic 75–122; PULSE 134–145; RESP 16–32; TEMP 98.8–99.4; O2SAT 93–99
[2017-01-02] MEDS: CHOLECALCIFEROL (VIT D3) 5000 UNIT CAP PO SCH (09:00)
[~2017-01-02 14:37] MED LIST changes: +AMLO5 PO; +ATEN50TA PO; +CALC667C PO; +CHOL5000 PO; +CLON0.3T PO; -FLAG500T PO; -NIFE1TAB85 PO; +PRED20 PO; +RANI150C PO; +SENN1TAB PO; +WHEEMIS3
[2017-01-02] MEDS ORDERED: SODIUM CHLOR 0.9% 1000 ML INJ 1,000 ML IV SCH ×2 (14:52→16:45)
[2017-01-02] MEDS ORDERED: SODIUM CHLORIDE 0.9% FLUSH 5 ML FLUSH IV FLUSH PRN (15:00)
--- NOTE | 2017-01-02 15:05 | PD ---
HPI Chief Complaint: Altered Mental Status Time Seen by Provider: 15:01 Travel History International Travel<30 days: No Contact w/Intl Traveler<30days: No Traveled to known affect area: No History of Present Illness HPI 61-year-old male with PMH of ESRD, HTN, hepatitis C, on peritoneal dialysis at home presents to the ED via EMS for evaluation of altered mental status. Per EMS the patient's mother states that he began acting unusually this morning. On presentation the patient is alert, intermittently answers questions. He endorses recent history of cough, SOB. He denies fevers, chills, abdominal pain , changes in bowel habits, dysuria, back pain. He is unable to provide any other meaningful history. PFSH Past Medical History Arthritis: Yes Anxiety: No Depression: No Heart Rhythm Problems: No Cancer: No Cardiovascular Problems: Yes (HTN) Chemotherapy: No Chest Pain: Yes Congestive Heart Failure: No COPD: Yes Cerebrovascular Accident: No Diabetes: No Dialysis: Yes (peritoneal dialysis) Diminished Hearing: No Endocrine: No Genitourinary: No Hepatitis: Yes (C) Hypertension: Yes Immune Disorder: No Implanted Vascular Access Dvce: Yes (peritoneal dialysis catheter) Musculoskeletal: No Neurologic: No Psychiatric: No Reproductive: No Respiratory: Yes Migraines: Yes Radiation Therapy: No Seizures: No Sickle Cell Disease: No Sleep Apnea: No Thyroid Disease: No ?: Not Past Surgical History AICD: No Arteriovenous Shunt: No Cardiac Surgery: No Insulin Pump: No Joint Replacement: No Neurologic Surgery: No Pacemaker: No Other Surgery: Yes Social History Alcohol Use: No Tobacco Use: Yes (1/2 ppd) Substance Use: Yes (marijuana) Allergies-Medications (Allergen,Severity, Reaction): Coded Allergies: Aspirin (Unverified Allergy, Unknown, 01/02/17) HEP C Reported Meds & Prescriptions Reported Meds & Active Scripts Active Prednisone 20 Mg Tab 20 Mg PO BID Senna Plus 8.6-50 mg (Sennosides-Docusate Sodium) 1 Tab Tab 1 Tab PO BID Vitamin D3 (Cholecalciferol) 5,000 Unit Cap 5,000 Units PO DAILY Calcium Acetate (Calcium Acetate (Phosphate Bin) 667 Mg Cap 667 Mg PO TID Norvasc (Amlodipine Besylate) 5 Mg Tab 5 Mg PO BID Reported Ranitidine (Ranitidine HCl) 150 Mg Cap 150 Mg PO BID Atenolol 50 Mg Tab 50 Mg PO DAILY Clonidine (Clonidine HCl) 0.3 Mg Tab 0.3 Mg PO TID Review of Systems ROS Limitations: Altered Mental Status, Poor Historian Except as stated in HPI: all other systems reviewed are Neg Physical Exam Exam Limitations: Altered Mental Status Narrative GENERAL: Well-nourished, well-developed alert, tremulous, disoriented black male in NAD. SKIN: Focused skin assessment warm/dry. HEAD: Normocephalic. EYES: Bilateral scleral icterus. No injection or drainage. PERRLA. EOMI. NECK: Supple, trachea midline. No JVD or lymphadenopathy. CARDIOVASCULAR: Regular rate and rhythm without murmurs, gallops, or rubs. RESPIRATORY: Breath sounds coarse in all alcazar. No accessory muscle use. GASTROINTESTINAL: Abdomen soft, non-tender, nondistended. Peritoneal dialysis catheter without signs of infection. MUSCULOSKELETAL: No cyanosis. 2+ edema of the RLE. Hohmann sign negative bilaterally. Patient moves all limbs spontaneously. BACK: Nontender without obvious deformity. No CVA tenderness. Data Data Last Documented VS Vital Signs Date Time Temp Pulse Resp B/P Pulse Ox O2 Delivery O2 Flow Rate FiO2 01/02/17 16:05 99.0 140 22 178/122 99 Room Air Orders Electrocardiogram (01/02/17 14:52) Ammonia (01/02/17 14:52) Complete Blood Count With Diff (01/02/17 14:52) Comprehensive Metabolic Panel (01/02/17 14:52) Creatine Kinase (Cpk) (01/02/17 14:52) Prothrombin Time / Inr (Pt) (01/02/17 14:52) Act Partial Throm Time (Ptt) (01/02/17 14:52) Troponin I (01/02/17 14:52) Thyroid Stimulating Hormone (01/02/17 14:52) Urinalysis - C+S If Indicated (01/02/17 14:52) Lactic Acid Sepsis Protocol (01/02/17 14:52) Blood Culture (01/02/17 14:52) Chest, Single Ap (01/02/17 14:52) Blood Glucose (01/02/17 14:52) Ecg Monitoring (01/02/17 14:52) Iv Access Insert/Monitor (01/02/17 14:52) Oximetry (01/02/17 14:52) Sodium Chloride 0.9% Flush (Ns Flush) (01/02/17 15:00) Sodium Chlor 0.9% 1000 Ml Inj (Ns 1000 M (01/02/17 14:52) Ondansetron Inj (Zofran Inj) (01/02/17 15:30) Urine Culture (01/02/17 15:08) Ct Brain W/O Iv Contrast(Rout) (01/02/17 ) Sodium Chlor 0.9% 1000 Ml Inj (Ns 1000 M (01/02/17 16:03) Piperacil-Tazo 4.5 Gm Premix (Zosyn 4.5 (01/02/17 16:10) Hydralazine Inj (Apresoline Inj) (01/02/17 16:30) Admit To Inpatient (01/02/17 ) Code Status (01/02/17 16:23) Vital Signs (Adult) BETHANIE.Q1H (01/02/17 16:23) Activity Bed Rest (01/02/17 16:23) ^ Elevate Head Of Bed (01/02/17 16:23) Neuro Checks . ORDERED (01/02/17 16:23) Pantoprazole Inj (Protonix Inj) (01/02/17 17:00) Albuterol-Ipratropium Neb (Duoneb Neb) (01/02/17 16:30) Albuterol-Ipratropium Neb (Duoneb Neb) (01/02/17 16:30) Complete Blood Count With Diff (01/03/17 04:00) Basic Metabolic Panel (Bmp) (01/03/17 04:00) Carbonating Stone Cleaner / Telemetry BETHANIE.Q8H (01/02/17 16:23) Scd Bilateral/Knee High BETHANIE.BID (01/02/17 16:23) ^ Initiate Protocol (01/02/17 16:23) ^ Instruction (01/02/17 16:23) [facility] Nursing Information (01/02/17 16:30) Chlorhexidine 2% Cloth (Chlorhexidine 2% (01/03/17 04:00) Chlorhexidine 2% Cloth (Chlorhexidine 2% (01/02/17 16:30) Mrsa Pcr Surveillance (01/02/17 16:23) Inpatient Certification (01/02/17 ) Notify Dr: Other (01/02/17 16:22) Bedside Glucose .As Directed (01/02/17 16:22) ^ Hypoglycemia Cc <80 Mg/Dl (01/02/17 16:22) Insulin Regular (Iv Infusion) (Novolin R (01/02/17 16:30) Dextrose 50% In Tyra (Vial) Inj (D50w (Vi (01/02/17 16:30) Misc Information (01/02/17 16:30) Admit Order (Ed Use Only) (01/02/17 16:24) Consult Nephrology (01/02/17 ) Labs Laboratory Tests Test 01/02/17 15:08 White Blood Count 10.8 TH/MM3 Red Blood Count 3.31 MIL/MM3 Hemoglobin 9.9 GM/DL Hematocrit 31.8 % Mean Corpuscular Volume 96.2 FL Mean Corpuscular Hemoglobin 30.0 PG Mean Corpuscular Hemoglobin 31.2 % Concent Red Cell Distribution Width 15.3 % Platelet Count 94 TH/MM3 Mean Platelet Volume 10.5 FL Neutrophils (%) (Auto) 91.7 % Lymphocytes (%) (Auto) 3.6 % Monocytes (%) (Auto) 4.2 % Eosinophils (%) (Auto) 0.2 % Basophils (%) (Auto) 0.3 % Neutrophils # (Auto) 9.9 TH/MM3 Lymphocytes # (Auto) 0.4 TH/MM3 Monocytes # (Auto) 0.5 TH/MM3 Eosinophils # (Auto) 0.0 TH/MM3 Basophils # (Auto) 0.0 TH/MM3 CBC Comment AUTO DIFF Differential Comment AUTO DIFF CONFIRMED Prothrombin Time 11.3 SEC Prothromb Time International 1.0 RATIO Ratio Activated Partial 22.2 SEC Thromboplast Time Urine Color LIGHT-YELLOW Urine Turbidity CLEAR Urine pH 6.0 Urine Specific Lilly 1.015 Urine Protein 30 mg/dL Urine Glucose (UA) 1000 mg/dL Urine Ketones NEG mg/dL Urine Occult Blood MOD Urine Nitrite NEG Urine Bilirubin NEG Urine Urobilinogen LESS THAN 2.0 MG/DL Urine Leukocyte Esterase NEG Urine RBC LESS THAN 1 /hpf Urine WBC 4 /hpf Urine Bacteria RARE /hpf Urine Hyaline Casts 4 /lpf Microscopic Urinalysis Comment CATH-CULTURE IND Sodium Level 127 MEQ/L Potassium Level 4.6 MEQ/L Chloride Level 90 MEQ/L Carbon Dioxide Level 19.6 MEQ/L Anion Gap 17 MEQ/L Blood Urea Nitrogen 89 MG/DL Creatinine 6.63 MG/DL Estimat Glomerular Filtration 10 ML/MIN Rate Random Glucose 1223 MG/DL Lactic Acid Level 3.4 mmol/L Calcium Level 8.2 MG/DL Total Bilirubin 1.8 MG/DL Aspartate Amino Transf 56 U/L (AST/SGOT) Alanine Aminotransferase 79 U/L (ALT/SGPT) Alkaline Phosphatase 157 U/L Ammonia 52 MCMOL/L Total Creatine Kinase 241 U/L Troponin I 0.19 NG/ML Total Protein 5.5 GM/DL Albumin 2.6 GM/DL Thyroid Stimulating Hormone 0.610 uIU/ML 3rd Gen [facility] Medical Decision Making Medical Screen Exam Complete: Yes Emergency Medical Condition: Yes Interpretation(s) EKG revealed 134, sinus rhythm, short MS. MS 116, QRS 80, QTC 349. Normal axis. Reviewed by Dr. Salinas. Differential Diagnosis SBP versus DKA versus pneumonia versus urosepsis versus electrolyte abnormality versus other Narrative Course 61-year-old male with PMH of ESRD, HTN, hepatitis C, on peritoneal dialysis at home presents to the ED via EMS for evaluation of altered mental status. Per EMS the patient's mother states that he began acting unusually this morning. On presentation the patient is alert, intermittently answers questions. He endorses recent history of cough, SOB. He denies fevers, chills, abdominal pain , changes in bowel habits, dysuria, back pain. He is unable to provide any other meaningful history. Temp 99.4, BP 197/95, pulse 135, respiratory rate 26, 97% on room air on presentation. Physical exam reveals an alert, disoriented black male in NAD. Bilateral scleral icterus, coarse breath sounds in all lung alcazar, 2+ edema of RLE. Hohmann sign negative. He was placed on continuous monitoring. IV was established. He is administered a liter of normal saline. CBC: WBC 10.8. Hemoglobin 9.9. Coags: INR 1.0. CMP: Sodium 127, chloride 90. Blood glucose 1223. Potassium 4.6. Calcium 8.2. BUN 89, creatinine 6.63. AST 56, ALT 99. Lactic acid: 3.4. Ammonia: 52 UA: Rare bacteria, moderate occult blood. Culture pending. CXR: Mild basilar atelectasis. Head CT: No acute intracranial abnormalities per radiology read. Patient was administered IV Zosyn and a second liter of fluid. 20 mg hydralazine ordered. Insulin drip initiated. Dr. Salinas spoke with Dr. Montes who agrees to accept the patient to the critical care medicine service. Please see medicine notes for disposition. Sepsis Criteria SIRS Criteria (2 or more): Heart rate over 90 Severe Sepsis (+one): Lactate >2 Yanira Browning January 02, 2017 15:05 Yanira Browning January 02, 2017 15:05
[2017-01-02 15:20] LABS: AUTOMATED NEUTROPHIL # 9.9 TH/MM3 (1.8-7.7); BASOPHIL % 0.3 % (0.0-2.0); EOSINOPHIL % 0.2 % (0.0-4.0); HEMATOCRIT 31.8 % (39.0-51.0); LYMPH % 3.6 % (9.0-44.0); LYMPHOCYTE # 0.4 TH/MM3 (1.0-4.8); MEAN CELL VOLUME 96.2 FL (80.0-100.0); MEAN CORPUSCULAR HGB CONC 31.2 % (32.0-36.0); MONO % 4.2 % (0.0-8.0); NEUT % 91.7 % (16.0-70.0); PLATELET COUNT 94 TH/MM3 (150-450); RED BLOOD COUNT 3.31 MIL/MM3 (4.50-5.90); RED CELL DISTRIBUTION WIDTH 15.3 % (11.6-17.2); WHITE BLOOD COUNT 10.8 TH/MM3 (4.0-11.0)
[2017-01-02 15:23] LABS: HEMO FLAGS AUTO DIFF
[2017-01-02 15:29] LABS: APTT (PATIENT) 22.2 SEC (24.3-30.1); PROTHROMBIN TIME - PATIENT 11.3 SEC (9.8-11.6)
[2017-01-02 15:30] LABS: BACTERIA, URINE RARE /hpf; BLOOD, URINE MOD (NEG); GLUCOSE,URINE 1000 mg/dL (NEG); HYALINE CAST, URINE 4 /lpf (RARE); KETONE, URINE NEG (NEG); NITRITE,URINE NEG (NEG); URINE COLOR LIGHT-YELLOW (YELLW/STRAW)
[2017-01-02] MEDS ORDERED: ONDANSETRON HCL 4 MG/2 ML VIAL IV PUSH ONE (15:30)
[2017-01-02 15:31] LABS: COMMENT (UR) CATH-CULTURE IND; CULTURE IF INDICATED CATH CULTURE IND
[2017-01-02 15:50] LABS: ALT (GPT) 79 U/L (12-78); ANION GAP 17 MEQ/L (5-15); AST (GOT) 56 U/L (15-37); BICARBONATE 19.6 MEQ/L (21.0-32.0); BLOOD UREA NITROGEN 89 MG/DL (7-18); CHLORIDE 90 MEQ/L (98-107); GLOMERULAR FILTRATION RATE 10 ML/MIN (>89); POTASSIUM 4.6 MEQ/L (3.5-5.1); SODIUM (NA) 127 MEQ/L (136-145)
[2017-01-02 15:59] LABS: SCAN/DIFF AUTO DIFF CONFIRMED
[2017-01-02] MEDS ORDERED: SODIUM CHLOR 0.9% 1000 ML INJ 1,000 ML IV ONE ×3 (16:03→20:00)
[2017-01-02] MEDS ORDERED: SODIUM CHLOR 0.9% 1000 ML INJ 400 ML IV ONE (16:03)
[2017-01-02] MEDS ORDERED: PIPERACIL-TAZO 4.5 GM PREMIX 100 ML IV STA (16:10)
[2017-01-02] MEDS ORDERED: VANCOMYCIN INJ 1,000 MG in SODIUM CHLOR 0.9% 250 ML INJ 250 ML IV STA (16:10)
[2017-01-02 16:13] LABS: ALKALINE PHOSPHATASE 157 U/L (45-117); CREATINE KINASE 241 U/L (39-308); TOTAL BILIRUBIN ADULT 1.8 MG/DL (0.2-1.0)
--- NOTE | 2017-01-02 16:13 | RADRPT ---
EXAM DATE/TIME: 01/02/2017 15:26 [facility] COMPARISON: CHEST SINGLE AP, October 20, 2016, 11:47. INDICATIONS : Shortness of breath. MEDICAL HISTORY : Hypertension. Chronic obstructive pulmonary disease. SURGICAL HISTORY : ENCOUNTER: Initial ACUITY: 1 day PAIN SCORE: Non-responsive. LOCATION: Bilateral chest FINDINGS: There is slight atelectasis in the lung bases. Stable mild asymmetric elevation left diaphragm. No si gnificant effusion. Cardiomediastinal contours are grossly stable accounting for differences in proje ction. CONCLUSION: Mild basilar atelectasis. Juan Ramirez MD on January 02, 2017 at 16:10 Board Certified Radiologist. This report was verified electronically.
[2017-01-02] MEDS ORDERED: RESP: ALBUTEROL 2.5 MG/IPRATROPIUM 0.5 MG NEB (PRN) INH (16:30)
[2017-01-02] MEDS ORDERED: DEXTROSE 50% IN WATER 50 ML VIAL(D50) IV PUSH PRN (16:30)
[2017-01-02] MEDS ORDERED: CHLORHEXIDINE GLUCONATE 2 % 1 PACK (2 CLOTHS) TOP PRN (16:30)
[2017-01-02] MEDS ORDERED: MISC INFORMATION OTHER ONE (16:30)
[2017-01-02] MEDS ORDERED: hydrALAZINE HCL 20 MG/ML VIAL IV PUSH ONE (16:30)
[2017-01-02] MEDS ORDERED: MISCELLANEOUS NURSING INFORMATION XX SCH (16:30)
[2017-01-02] MEDS ORDERED: INSULIN REGULAR (IV INFUSION) 100 UNITS in SODIUM CHLORIDE 0.9% INJ 99 ML IV SCH (16:30)
[2017-01-02] MEDS ORDERED: INSULIN HUMAN REGULAR 1,000 UNITS/10 ML VIAL IV PUSH ONE (17:00)
[2017-01-02] MEDS: RESP: ALBUTEROL 2.5 MG/IPRATROPIUM 0.5 MG NEB (SCH) INH ×2 (17:04→20:37)
--- NOTE | 2017-01-02 17:08 | RADRPT ---
EXAM DATE/TIME: 01/02/2017 16:33 [facility] COMPARISON: No previous studies available for comparison. INDICATIONS : Evaluate for altered mental status. RADIATION DOSE: 56.8 CTDIvol (mGy) MEDICAL HISTORY : Hypertension. Chronic obstructive pulmonary disease. Renal disease, end stage. SURGICAL HISTORY : None. ENCOUNTER: Initial ACUITY: 1 day PAIN SCALE: 2/10 LOCATION: Bilateral cranial TECHNIQUE: Multiple contiguous axial images were obtained of the head. Using automated exposure control and adj ustment of the mA and/or kV according to patient size, radiation dose was kept as low as reasonably a chievable to obtain optimal diagnostic quality images. FINDINGS: No intracranial mass, hemorrhage or shift. No hydrocephalus. Basal ganglia calcifications noted. Cavu m septum pellucidum. CONCLUSION: 1. No acute intracranial abnormalities. No significant change from May 2016. Marcello Disla MD on January 02, 2017 at 17:03 Board Certified Radiologist. This report was verified electronically.
[2017-01-02 17:14] LABS: LACTIC ACID GHOST NOT REPORTABLE
--- NOTE | 2017-01-02 17:59 | MH ---
cc: DEEP BAUTISTA M.D. DATE OF ADMISSION 01/02/2017 DATE OF 1955 HISTORY OF PRESENT ILLNESS The patient is a 61-year-old male with past medical history of end-stage renal disease on peritoneal dialysis, hypertension, hepatitis C, who presented to [facility] ED via EMS for altered mental status. According to the ED records the patient began acting unusually this morning and on arrival he was alert, intermittently asking questions. He denies any recent history of chest pain, shortness of breath, cough or any constitutional symptoms. In addition, he denies any nausea, vomiting, abdominal pain. On arrival to the ER he was hypertensive with a blood pressure of 197/95, tachycardiac with heart rate in the 130s. His laboratory data significant for hyperglycemia with blood sugar of 1223. The patient denies any history of diabetes mellitus. Other significant labs showed hyponatremia with a sodium level 127, lactic acid of 3.4 and ammonia level of 52. No evidence of any fever or leukocytosis. His urinalysis positive for glucose, negative for ketones, nitrite, 4 WBC. Chest x-ray showed mild basilar atelectasis. The patient scheduled to undergo CT scan of the brain. In the ER he was given 1 liter bolus of normal saline in addition to Zosyn, Zofran. PAST MEDICAL HISTORY Past medical history is significant for hepatitis C, hypertension, end-stage renal disease on peritoneal dialysis. The patient denies any history of diabetes mellitus. PAST SURGICAL HISTORY Right hand surgery. FAMILY HISTORY Hypertension runs in the family. FAMILY HISTORY AND SOCIAL HISTORY Denies any history of alcohol use. Smoker. REPORTED MEDICATIONS INCLUDE 1. Atenolol. 2. Prednisone. 3. Clonidine. 4. Amlodipine. 5. Ranitidine. 6. Calcium acetate. 7. Vitamin D3. REVIEW OF SYSTEMS As per HPI. The rest of the review of system unremarkable. PHYSICAL EXAMINATION GENERAL: A 61-year-old male lying in bed in no acute distress. VITAL SIGNS: Temperature 99.0, pulse of 130s, blood pressure 178/122, saturation 98-99% on room air. HEENT: Atraumatic, normocephalic. Pupils equal, round and reactive to light and accommodation. Extraocular muscles intact. Conjunctivae pink. Nonicteric sclerae. Oral mucosa within normal. Dry mucous membranes noted. NECK: Supple. No JVD, adenopathy or thyromegaly. Trachea in the midline. CARDIOVASCULAR: Tachycardiac, normal S1-S2. No murmurs, rubs or gallops noted. PULMONARY EXAMINATION: Bilateral equal entry. No crackles or wheezing. ABDOMEN: Soft, nontender, no distension. Positive bowel sounds. EXTREMITIES: No cyanosis, clubbing or edema. NEURO: No focal or sensory deficit. CARDIOLOGY STUDIES EKG showed sinus tachycardia with heart rate of 134 beats per minute, LVH and ST-T wave changes. LABORATORY DATA WBC 10.8, hemoglobin 9.9, hematocrit 31, platelet count of 94, sodium of 127, potassium 4.6, chloride 90, CO2 19.6, BUN 89, creatinine 6.63, glucose 1223, lactic acid 3.4, total bilirubin 1.8, AST 56, ALT 79, alk phos 157, ammonia 52. Troponin 0.19, total protein 5.5, albumin 2.6, TSH 0.61, INR 1, PT 11.3, PTT 22.2. Urinalysis negative for nitrite, leukocyte esterase, positive for glucose, 4 WBCs. RADIOGRAPHY Chest x-ray showed mild basilar atelectasis. IMPRESSION 1. Altered mental status. 2. Non-ketotic hyperosmolar hyperglycemia. 3. Uncontrolled hypertension. 4. End-stage renal disease on peritoneal dialysis. 5. Mild lactic acidemia. 6. Elevated LFTs. 7. Hyponatremia. 8. History of hepatitis C. RECOMMENDATIONS 1. Monitor neuro status closely and avoid any sedatives. The patient is for CT scan of the brain without contrast. 2. Oxygen p.r.n. to maintain sats above 92%. 3. Bronchodilators on a p.r.n. basis and aspiration precautions. 4. Monitor heart rate and blood pressure closely and maintain MAP greater than 65 mmHg. 5. Resume antihypertensive medications. Will continue with Norvasc 5 milligrams b.i.d., atenolol 50 milligrams p.o. daily, clonidine 0.3 milligrams t.i.d. and will place on hydralazine 10 milligrams IV q. 6 hours p.r.n. for systolic blood pressure greater than 160. He had an echocardiogram on October 22 which showed an EF of 60% with no regional wall motion abnormalities. Mild elevated troponin likely secondary to renal dysfunction. Will monitor troponins. 6. Keep n.p.o. for now and place on Protonix 40 milligrams IV daily for GI prophylaxis. The patient takes ranitidine 150 milligrams p.o. b.i.d. at home. 7. Monitor for signs of infections which include fever and WBC. He was given Zosyn in the ER. Will hold off on further antibiotics and monitor for signs of infections which include fever and WBC. His chest x-ray in the ER showed mild basilar atelectasis and urinalysis showed no evidence of any leukocyte esterase or nitrite. The patient is afebrile with no evidence of any leukocytosis. 8. Monitor CBC and coags. 9. Gentle IV hydration given he has chronic kidney disease. The patient was given 1 liter bolus of normal saline. We will give an additional 1 liter of NS and place on maintenance fluids, NS at 75 ml an hour. Monitor BNP and electrolytes closely. 10. The patient was placed on insulin drip non DKA protocol. We will follow blood sugar closely and continue with IV fluids as stated above. 11. Will consult nephrology service. The patient is known to Dr. Villela. Continue with PhosLo 667 milligrams p.o. t.i.d. and vitamin D3 5000 units p.o. daily. 12. GI prophylaxis with Protonix 40 milligrams daily and DVT prophylaxis with SCDs. Will hold off on chemical anticoagulation prophylaxis given underlying thrombocytopenia. 13. Further recommendations will be based on hospital course. Critical care time 35 minutes excluding procedures. MD NIKOLE Hudson/REKHA /5:08 PM /5:32 PM
[2017-01-02] MEDS: cloNIDine HCL 0.3 MG TAB PO SCH (18:00)
[2017-01-02] MEDS: CALCIUM ACETATE 667 MG CAP PO SCH (18:00)
--- NOTE | 2017-01-02 19:02 | RADRPT ---
EXAM DATE/TIME: 01/02/2017 17:08 [facility] COMPARISON: No previous studies available for comparison. INDICATIONS : Increased lab values. MEDICAL HISTORY : Chronic obstructive pulmonary disease. Hypertension. Hepatitis C. Migraines. Renal disease. Dialysis. Arthritis. SURGICAL HISTORY : Peritoneal dialysis catheter. Left knee surgery. ENCOUNTER: Subsequent ACUITY: 1 day PAIN SCORE: 0/10 LOCATION: Bilateral upper quadrant MEASUREMENTS: LIVER: 16.3 cm length COMMON DUCT: 8 mm RIGHT KIDNEY: 7.4 x 4.2 x 4.1 cm LEFT KIDNEY: 8.9 x 5.1 x 5.8 cm SPLEEN: 9.4 cm length AORTA: 2.8cm maximal FINDINGS: LIVER: Normal echotexture without focal lesion or ductal dilatation. Hepatopedal flow. COMMON DUCT: Mild dilatation. No filling defects appreciated within its visualized extent. GALLBLADDER: A 5 mm echogenic focus without shadowing is seen involving the neck of the gallbladder. Diffuse gallb ladder wall thickening. No pericholecystic fluid. The gallbladder is not distended. PANCREAS: Largely obscured by bowel gas. A small portion of the pancreatic head is seen and is normal. RIGHT KIDNEY: The kidney is small and echogenic. A tiny simple cyst. No hydronephrosis. LEFT KIDNEY: The kidney is small and echogenic. A small simple cyst. No hydronephrosis. SPLEEN: No focal lesion. AORTA: Non aneurysmal. IVC: Within normal limits. CONCLUSION: 1. Mild dilatation of the common bile duct. No intrahepatic ductal dilatation. Typically MRCP would b e suggested, however, this patient was uncooperative during this exam and MRI is very sensitive to mo tion artifact. 2. Sonographic findings consistent with medical renal disease. 3. Trace amount ascites. 4. 5 mm gallbladder polyp. 5. Gallbladder wall thickening, however, the gallbladder is poorly distended and this will artifactua lly increase this thickness. No sonographic evidence to suggest acute cholecystitis. Satinder Khanna Jr., MD on January 02, 2017 at 18:55 Board Certified Radiologist. This report was verified electronically.
[2017-01-02] MEDS ORDERED: MIDAZOLAM HCL 5 MG/ML VIAL (1 ML) ONE (19:27)
[2017-01-02] MEDS ORDERED: MIDAZOLAM HCL 2 MG/2 ML VIAL IV PUSH ONE (20:00)
[2017-01-02 22:31] LABS: BICARBONATE 15.4 MEQ/L (21.0-32.0)
[2017-01-02] MEDS ORDERED: SODIUM BICARBONATE 8.4% INJ 150 MEQ in WATER STERILE FOR INJ 850 ML IV SCH (22:45)
[2017-01-02] MEDS: amLODIPine BESYLATE 5 MG TAB PO SCH (23:05)
[2017-01-02] MEDS: LACTULOSE SYRUP 20 GM/30 ML CUP PO SCH (23:05)
[2017-01-02] MEDS: PANTOPRAZOLE SODIUM 40 MG VIAL IV SCH (23:15)
[2017-01-03] VITALS (22 sets, daily range): BP systolic 110–186; BP diastolic 67–90; PULSE 82–134; RESP 15–28; TEMP 98.7–100.6; O2SAT 96–100
[2017-01-03] MEDS ORDERED: SODIUM BICARBONATE 8.4% INJ 150 MEQ in WATER STERILE FOR INJ 850 ML IV SCH ×2
[2017-01-03] MEDS: CHLORHEXIDINE GLUCONATE 2 % 1 PACK (2 CLOTHS) TOP SCH (00:43)
[2017-01-03] MEDS: RESP: ALBUTEROL 2.5 MG/IPRATROPIUM 0.5 MG NEB (SCH) INH ×4 (03:23→21:06)
[2017-01-03 03:39] LABS: AUTOMATED NEUTROPHIL # 5.3 TH/MM3 (1.8-7.7); BASOPHIL % 0.2 % (0.0-2.0); EOSINOPHIL # 0.1 TH/MM3 (0-0.4); HEMATOCRIT 25.4 % (39.0-51.0); HEMO FLAGS AUTO DIFF; LYMPH % 10.5 % (9.0-44.0); LYMPHOCYTE # 0.7 TH/MM3 (1.0-4.8); MEAN CELL VOLUME 89.4 FL (80.0-100.0); MEAN CORPUSCULAR HEMOGLOBIN 30.8 PG (27.0-34.0); MEAN CORPUSCULAR HGB CONC 34.5 % (32.0-36.0); MONO % 4.9 % (0.0-8.0); NEUT % 82.4 % (16.0-70.0); PLATELET COUNT 63 TH/MM3 (150-450); RED BLOOD COUNT 2.85 MIL/MM3 (4.50-5.90); WHITE BLOOD COUNT 6.5 TH/MM3 (4.0-11.0)
[2017-01-03 04:00] LABS: BICARBONATE 25.2 MEQ/L (21.0-32.0); INDIRECT BILIRUBIN 0.5 MG/DL (0.0-0.8); TOTAL BILIRUBIN ADULT 1.3 MG/DL (0.2-1.0)
[2017-01-03 04:29] LABS: PLATELET ESTIMATE SMEAR LOW (NORMAL); PLATELET MORPHOLOGY NORMAL (NORMAL); SCAN/DIFF AUTO DIFF CONFIRMED
[2017-01-03] MEDS: hydrALAZINE HCL 20 MG/ML VIAL IV PUSH PRN (05:42)
--- NOTE | 2017-01-03 07:56 | HHI.CCPN ---
Subjective Remarks/Hospital Course The patient is a 61-year-old male with past medical history of end-stage renal disease on peritoneal dialysis, hypertension, hepatitis C, who presented to [facility] ED via EMS for altered mental status. According to the ED records the patient began acting unusually this morning and on arrival he was alert, intermittently asking questions. He denies any recent history of chest pain, shortness of breath, cough or any constitutional symptoms. In addition, he denies any nausea, vomiting, abdominal pain. On arrival to the ER he was hypertensive with a blood pressure of 197/95, tachycardiac with heart rate in the 130s. His laboratory data significant for hyperglycemia with blood sugar of 1223. The patient denies any history of diabetes mellitus. Other significant labs showed hyponatremia with a sodium level 127, lactic acid of 3.4 and ammonia level of 52. No evidence of any fever or leukocytosis. His urinalysis positive for glucose, negative for ketones, nitrite, 4 WBC. Chest x- ray showed mild basilar atelectasis. The patient scheduled to undergo CT scan of the brain. In the ER he was given 1 liter bolus of normal saline in addition to Zosyn, Zofran. 01/04 Patient remains on insulin drip 1.5u/hr, BS controlled, AG closed 15 this morning from 22. NGT placed overnight had 350ml gastric drainage. Lactic acid increased 9.2 and troponin increased 1.41 from 0.76 last night. Now on bicarb drip ( SW+3amps bicarb@75ml/hr). T 100.6. CT brain yesterday showed no acute intracranial abnormalities. Objective Vital Signs Date Time Temp Pulse Resp B/P Pulse Ox O2 Delivery O2 Flow Rate FiO2 01/03/17 06:00 118 01/03/17 05:30 20 168/77 99 01/03/17 04:00 100.6 01/02/17 20:41 21 01/02/17 18:31 Room Air Intake and Output 01/02/17 01/02/17 01/03/17 08:00 16:00 00:00 Intake Total 1181 ml Output Total 845 ml Balance 336 ml Result Diagram: 01/03/17 0305 01/03/17 0305 Other Results Laboratory Tests Test 01/02/17 01/02/17 01/02/17 01/02/17 15:08 17:45 18:50 20:20 White Blood Count 10.8 TH/MM3 Red Blood Count 3.31 MIL/MM3 Hemoglobin 9.9 GM/DL Hematocrit 31.8 % Mean Corpuscular Volume 96.2 FL Mean Corpuscular Hemoglobin 30.0 PG Mean Corpuscular Hemoglobin 31.2 % Concent Red Cell Distribution Width 15.3 % Platelet Count 94 TH/MM3 Mean Platelet Volume 10.5 FL Neutrophils (%) (Auto) 91.7 % Lymphocytes (%) (Auto) 3.6 % Monocytes (%) (Auto) 4.2 % Eosinophils (%) (Auto) 0.2 % Basophils (%) (Auto) 0.3 % Neutrophils # (Auto) 9.9 TH/MM3 Lymphocytes # (Auto) 0.4 TH/MM3 Monocytes # (Auto) 0.5 TH/MM3 Eosinophils # (Auto) 0.0 TH/MM3 Basophils # (Auto) 0.0 TH/MM3 CBC Comment AUTO DIFF Differential Comment AUTO DIFF CONFIRMED Prothrombin Time 11.3 SEC Prothromb Time International 1.0 RATIO Ratio Activated Partial 22.2 SEC Thromboplast Time Urine Color LIGHT-YELLOW Urine Turbidity CLEAR Urine pH 6.0 Urine Specific [place] 1.015 Urine Protein 30 mg/dL Urine Glucose (UA) 1000 mg/dL Urine Ketones NEG mg/dL Urine Occult Blood MOD Urine Nitrite NEG Urine Bilirubin NEG Urine Urobilinogen LESS THAN 2.0 MG/DL Urine Leukocyte Esterase NEG Urine RBC LESS THAN 1 /hpf Urine WBC 4 /hpf Urine Bacteria RARE /hpf Urine Hyaline Casts 4 /lpf Microscopic Urinalysis Comment CATH-CULTURE IND Sodium Level 127 MEQ/L Potassium Level 4.6 MEQ/L Chloride Level 90 MEQ/L Carbon Dioxide Level 19.6 MEQ/L Anion Gap 17 MEQ/L Blood Urea Nitrogen 89 MG/DL Creatinine 6.63 MG/DL Estimat Glomerular Filtration 10 ML/MIN Rate Random Glucose 1223 MG/DL 777 MG/DL 612 MG/DL Lactic Acid Level 3.4 mmol/L 4.7 mmol/L Calcium Level 8.2 MG/DL Total Bilirubin 1.8 MG/DL Aspartate Amino Transf 56 U/L (AST/SGOT) Alanine Aminotransferase 79 U/L (ALT/SGPT) Alkaline Phosphatase 157 U/L Ammonia 52 MCMOL/L Total Creatine Kinase 241 U/L Troponin I 0.19 NG/ML Total Protein 5.5 GM/DL Albumin 2.6 GM/DL Thyroid Stimulating Hormone 0.610 uIU/ML 3rd Gen Nasal Screen MRSA (PCR) MRSA NOT DETECTED Test 01/02/17 01/03/17 21:49 03:05 Sodium Level 141 MEQ/L 144 MEQ/L Potassium Level 4.0 MEQ/L 4.0 MEQ/L Chloride Level 104 MEQ/L 104 MEQ/L Carbon Dioxide Level 15.4 MEQ/L 25.2 MEQ/L Anion Gap 22 MEQ/L 15 MEQ/L Blood Urea Nitrogen 91 MG/DL 86 MG/DL Creatinine 6.47 MG/DL 6.07 MG/DL Estimat Glomerular Filtration 11 ML/MIN 11 ML/MIN Rate Random Glucose 429 MG/DL 124 MG/DL Lactic Acid Level 9.2 mmol/L Calcium Level 7.8 MG/DL 8.1 MG/DL Troponin I 0.76 NG/ML 1.41 NG/ML White Blood Count 6.5 TH/MM3 Red Blood Count 2.85 MIL/MM3 Hemoglobin 8.8 GM/DL Hematocrit 25.4 % Mean Corpuscular Volume 89.4 FL Mean Corpuscular Hemoglobin 30.8 PG Mean Corpuscular Hemoglobin 34.5 % Concent Red Cell Distribution Width 15.0 % Platelet Count 63 TH/MM3 Mean Platelet Volume 9.8 FL Neutrophils (%) (Auto) 82.4 % Lymphocytes (%) (Auto) 10.5 % Monocytes (%) (Auto) 4.9 % Eosinophils (%) (Auto) 2.0 % Basophils (%) (Auto) 0.2 % Neutrophils # (Auto) 5.3 TH/MM3 Lymphocytes # (Auto) 0.7 TH/MM3 Monocytes # (Auto) 0.3 TH/MM3 Eosinophils # (Auto) 0.1 TH/MM3 Basophils # (Auto) 0.0 TH/MM3 CBC Comment AUTO DIFF Differential Comment AUTO DIFF CONFIRMED Platelet Estimate LOW Platelet Morphology Comment NORMAL Total Bilirubin 1.3 MG/DL Direct Bilirubin 0.8 MG/DL Indirect Bilirubin 0.5 MG/DL Aspartate Amino Transf 63 U/L (AST/SGOT) Alanine Aminotransferase 69 U/L (ALT/SGPT) Alkaline Phosphatase 118 U/L Ammonia 48 MCMOL/L Total Protein 5.0 GM/DL Albumin 2.2 GM/DL Imaging Last Impressions Abdomen/Pelvis CT 01/03/17 0000 Signed Impressions: Service Date/Time: Tuesday, January 03, 2017 09:12 - CONCLUSION: 1. Gastric wall thickening of uncertain etiology. 2. There is a small volume of free fluid in the abdomen and pelvis. This may partially be related to the peritoneal dialysis. 3. Trace bilateral pleural effusions with adjacent atelectasis. Juan Salvador MD Chest X-Ray 01/02/17 1452 Signed Impressions: Service Date/Time: Monday, January 02, 2017 15:26 - CONCLUSION: Mild basilar atelectasis. Juan Ramirez MD Head CT 01/02/17 0000 Signed Impressions: Service Date/Time: Monday, January 02, 2017 16:33 - CONCLUSION: 1. No acute intracranial abnormalities. No significant change from May 2016. Marcello Disla MD Abdomen Ultrasound 01/02/17 0000 Signed Impressions: Service Date/Time: Monday, January 02, 2017 17:08 - CONCLUSION: 1. Mild dilatation of the common bile duct. No intrahepatic ductal dilatation. Typically MRCP would be suggested, however, this patient was uncooperative during this exam and MRI is very sensitive to motion artifact. 2. Sonographic findings consistent with medical renal disease. 3. Trace amount ascites. 4. 5 mm gallbladder polyp. 5. Gallbladder wall thickening, however, the gallbladder is poorly distended and this will artifactually increase this thickness. No sonographic evidence to suggest acute cholecystitis. Satinder Khanna Jr., MD Objective Remarks GENERAL: Patient is 61 yo lying in be din NAD SKIN: Warm and dry. HEAD: Normocephalic. EYES: No scleral icterus. No injection or drainage. NECK: Supple, trachea midline. No JVD or lymphadenopathy. CARDIOVASCULAR: Tachycardic without murmurs, gallops, or rubs. RESPIRATORY: Breath sounds equal bilaterally. No accessory muscle use. GASTROINTESTINAL: Abdomen soft, non-tender, nondistended. MUSCULOSKELETAL: No cyanosis, or edema. Neuro: Awake seems confused. A/P Assessment and Plan 1. Resp Insuff 2. Altered mental status. 3. Non-ketotic hyperosmolar hyperglycemia. 4. Hypertension. 5 Lactic acidemia 6 Elevated trop 7. End-stage renal disease on peritoneal dialysis. 8. Elevated LFTs. 7. Anemia, thrombocytopenia 8. History of hepatitis C. Plan Neuro: Monitor neuro status closely and avoid any sedatives. CT brain 01/02: No acute intracranial abnormalities Pulm Continue with oxygen keep sat >92% Bronchodilators and aspiration precautions. Check ABG CV: Monitor HR and BP and maintain MAP > 65 mmHg. On Norvasc 5 mg b.i.d., atenolol 50 mg p.o. daily, clonidine 0.3 mg t.i.d. hydralazine 10 mg IV q. 6 hours p.r.n. Echo from 10/22 showed an EF of 60% with no regional wall motion abnormalities. Monitor CK/trop, cards eval, check echo. Of note patient is ALLERGIC to ASA Serial lactic acid monitoring- Lactic acid cleared 1.6 from 9.2 last night GI: Keep n.p.o. on Protonix 40 mg IV daily for GI prophylaxis. CT abd/pelvis:Gastric wall thickening of uncertain etiology. There is a small volume of free fluid in the abdomen and pelvis. This may partially be related to the peritoneal dialysis. ID: Abx ( Vanco, Zosyn) monitor doses per renal function. Monitor for signs of infections(fever and WBC). Given Zosyn in the ER. CXR: mild basilar atelectasis and urinalysis showed no evidence of any leukocyte esterase or nitrite. Heme: Monitor CBC and coags, check Fibrinogen level r/o DIC : Monitor renal function avoid nephrotoxins Renal consulted- Dr. Sosa d/c bicarb drip Continue with PhosLo 667 milligrams p.o. t.i.d. and vitamin D3 5000 units p.o. daily. Endo: Transition from insulin drip to SSI once AG is closed. Monitor BMP and lytes closely; GI prophylaxis with Protonix 40 milligrams daily and DVT prophylaxis with SCDs. Not on chemical anticoagulation prophylaxis given underlying thrombocytopenia. Will sign off and transfer care to [facility] Level 3 Shelia Montes MD January 03, 2017 07:56
[2017-01-03] MEDS ORDERED: Vancomycin Consult Pharmacy 1 EA OTHER SCH (08:00)
[2017-01-03] MEDS: cloNIDine HCL 0.3 MG TAB PO SCH ×3 (08:27→17:44)
[2017-01-03] MEDS: amLODIPine BESYLATE 5 MG TAB PO SCH ×2 (08:27→21:41)
[2017-01-03] MEDS: ATENOLOL 50 MG TAB PO SCH ×2 (08:27→08:36)
[2017-01-03] MEDS: LACTULOSE SYRUP 20 GM/30 ML CUP PO SCH ×2 (08:27→21:00)
[2017-01-03] MEDS: CALCIUM ACETATE 667 MG CAP PO SCH ×3 (08:27→17:44)
[2017-01-03] MEDS: PIPERACIL-TAZO 3.375 GM PREMIX 50 ML IV SCH ×2 (08:51→15:49)
[2017-01-03] MEDS: CHOLECALCIFEROL (VIT D3) 5000 UNIT CAP PO SCH (09:00)
[2017-01-03] MEDS ORDERED: VANCOMYCIN INJ 1,000 MG in SODIUM CHLOR 0.9% 250 ML INJ 250 ML IV ONE (09:15)
--- NOTE | 2017-01-03 09:31 | RADRPT ---
EXAM DATE/TIME: 01/03/2017 09:12 [place] COMPARISON: CT ABDOMEN & PELVIS W/O CONTRAST, June 02, 2016, 19:28. INDICATIONS : Nausea and vomiting today. ORAL CONTRAST: No oral contrast ingested. RADIATION DOSE: 12.62 CTDIvol (mGy) MEDICAL HISTORY : Hepatitis C. Hypertension. Chronic obstructive pulmonary disease. SURGICAL HISTORY : peritoneal dialysis catheter ENCOUNTER: Initial ACUITY: 1 day PAIN SCALE: 0/10 LOCATION: Bilateral abdomen TECHNIQUE: Volumetric scanning of the abdomen and pelvis was performed. Using automated exposure control and ad justment of the mA and/or kV according to patient size, radiation dose was kept as low as reasonably achievable to obtain optimal diagnostic quality images. FINDINGS: LOWER LUNGS: There are trace bilateral pleural effusions with adjacent atelectasis. LIVER: Homogeneous density without lesion. There is no dilation of the biliary tree. No calcified gallston es. SPLEEN: Normal size without lesion. PANCREAS: No definite abnormality is appreciated. KIDNEYS: Normal in size and shape. There is no mass, stone, or hydronephrosis. There is a 15 mm stable cyst i n the left mid kidney. ADRENAL GLANDS: Within normal limits. VASCULAR: There is no aortic aneurysm. There is mild to moderate atherosclerotic disease. BOWEL/MESENTERY: Nasogastric tube is looped in the stomach. The stomach is not fully distended but there appears to be gastric wall thickening in the body and antral region. Small bowel and colon demonstrate no acute fi nding. Appendix is normal. There is a small volume of free fluid in the abdomen and pelvis. Peritonea l dialysis catheter is looped in the pelvis. No free air is visualized. ABDOMINAL WALL: Within normal limits. RETROPERITONEUM: There is no lymphadenopathy. BLADDER: Decompressed with a Baugh catheter in place. REPRODUCTIVE: Within normal limits. INGUINAL: There is no lymphadenopathy or hernia. MUSCULOSKELETAL: There are degenerative changes of the lumbar spine. CONCLUSION: 1. Gastric wall thickening of uncertain etiology. 2. There is a small volume of free fluid in the abdomen and pelvis. This may partially be related to the peritoneal dialysis. 3. Trace bilateral pleural effusions with adjacent atelectasis. Juan Salvador MD on January 03, 2017 at 9:23 Board Certified Radiologist. This report was verified electronically.
[2017-01-03 09:59] LABS: BLOOD GAS BASE EXCESS 2.6 mmol/L (-2-2); BLOOD GAS CARBOXYHEMOGLOBIN 1.6 % (0-4); BLOOD GAS HCO3 26 mmol/L (22-26); BLOOD GAS METHEMOGLOBIN 1.7 % (0-2); BLOOD GAS O2 HGB SATURATION 92 % (90-100); BLOOD GAS PCO2 35 mmHg (38-42); BLOOD GAS PO2 75 mmHg (61-120); BLOOD GAS TOTAL HGB 8.4 G/DL (12.0-16.0); CRITICAL VALUE NO; TEMP CORR TO 98.6
[2017-01-03 10:00] LABS: DRAW SITE RT BRACHIAL; FIO2 21 %; NUMBER OF ARTERIAL PUNCTURES 2; STAT NO; ULNAR PULSE PRESENT
--- NOTE | 2017-01-03 11:22 | MB ---
cc: RENEECAMPBELL DATE OF CONSULTATION: 01/03/2017 REASON FOR CONSULTATION: The patient is a 61 year-old black gentleman I am seeing for elevated troponin, he is extremely lethargic and I cannot get an accurate history from him, I have reviewed the chart. The patient has end stage renal disease on peritoneal dialysis, hypertension, hepatitis C who was admitted because of mental status changes. He was found to be in hyperosmolar coma FAMILY HISTORY Unremarkable. PAST HISTORY Otherwise remarkable for right hand surgery. SOCIAL HISTORY: The patient new rarely smokes a half-pack per day and does take marijuana. ALLERGIES ASPIRIN MEDICATIONS: List reviewed. REVIEW OF SYSTEMS I cannot get a review of systems. REVIEW OF SYSTEMS: On exam he is extremely lethargic but wakes to sternal rub. He denies chest pain or shortness of breath. PHYSICAL EXAMINATION: HEAD, EYES, EARS, NOSE, AND THROAT: On exam there are no xanthelasma and oral pharyngeal mucosa normal. He is mildly tachycardiac and blood pressure mildly elevated. CHEST: With decreased breath sounds and relatively clear. JVD normal S1-S2 no murmurs or gallops. ABDOMEN: The abdomen has a PD catheter otherwise is benign. EXTREMITIES: The extremities show 1+ edema below sequential. Pulses carotids without bruits. Radials 1+. Femorals not felt. No pedal is felt. He is not ambulated LABORATORY FINDINGS He is anemic with hematocrit dropping from 31.8-25.4. Platelet count is down at 63,000. PT/PTT normal. Initial glucose apparently 1223, glucose is down to 124. Liver functions mildly elevated troponins are mildly elevated with maximum of 1.41 and TSH level normal. RADIOLOGIC: EKG shows sinus tachycardia with left ventricular hypertrophy and repolarization abnormalities. CT of the head without acute changes. ABDOMINAL ULTRASOUND Mild dilatation of the valve ducts, a gallbladder polyp with trace ascites. Chest x-ray Reveals mild basilar atelectasis. PROBLEMS: 1. Hyperosmolar coma. 2. Elevated troponin, nonspecific particularly with end stage renal disease and acute illness. 3. Hepatitis C. 4. Echocardiogram done 10/24 showed normal LV function with mild aortic insufficiency. RECOMMENDATIONS Critical care management with fluid management per peritoneal dialysis. At this point in time I would not work him up further from a cardiac standpoint except ensuring that his echocardiogram is stable. I will leave risk factor modification to the primary service. I will not follow but be available if needed this hospital stay. MD ILYA Neumann/casie /9:49 AM /11:00 AM
[2017-01-03] MEDS: INSULIN NovoLIN REGULAR SUPPLEMENTAL SCALE SQ SCH ×2 (12:00→17:46)
[2017-01-03] MEDS ORDERED: DEXTROSE 50% IN WATER 50 ML VIAL(D50) IV PRN (12:00)
[2017-01-03] MEDS ORDERED: GLUCAGON 1 MG/ML VIAL OTHER PRN (12:00)
--- NOTE | 2017-01-03 12:13 | PD.CONS ---
HPI Service Nephrology Consult Requested By Dr. Montes Reason for Consult ESRD on PD Primary Care Physician Unknown History of Present Illness Patient is a 61-year-old male with history of end-stage renal disease on peritoneal dialysis, he came in with altered mental status and found to have blood glucose of 1223, she has no history of diabetes in the past. He has history of hypertension, hepatitis C and end-stage renal disease on peritoneal dialysis, is feeling better he was admitted in the intensive care unit and hydrated and he usually does his peritoneal dialysis at night. Review of Systems Constitutional: COMPLAINS OF: Fatigue Gastrointestinal: COMPLAINS OF: Nausea Psychiatric: COMPLAINS OF: Confusion Past Family Social History Allergies: Coded Allergies: Aspirin (Unverified Allergy, Unknown, 01/02/17) HEP C Past Medical History End-stage renal disease Hypertension Hepatitis C Past Surgical History Left knee Tenckhoff catheter placement Reported Medications Reported Meds & Active Scripts Active Prednisone 20 Mg Tab 20 Mg PO BID Senna Plus 8.6-50 mg (Sennosides-Docusate Sodium) 1 Tab Tab 1 Tab PO BID Vitamin D3 (Cholecalciferol) 5,000 Unit Cap 5,000 Units PO DAILY Calcium Acetate (Calcium Acetate (Phosphate Bin) 667 Mg Cap 667 Mg PO TID Norvasc (Amlodipine Besylate) 5 Mg Tab 5 Mg PO BID Reported Ranitidine (Ranitidine HCl) 150 Mg Cap 150 Mg PO BID Atenolol 50 Mg Tab 50 Mg PO DAILY Clonidine (Clonidine HCl) 0.3 Mg Tab 0.3 Mg PO TID Active Ordered Medications Current Medications Medications (Trade) Dose Ordered Sig/Issac Route Start Time Stop Time Status Last Admin (NS Flush) 2 ml UNSCH PRN IV FLUSH 01/02/17 15:00 (Protonix Inj) 40 mg Q24H IV 01/02/17 17:00 01/02/17 23:15 Miscellaneous Information 1 Q361D XX 01/02/17 16:30 (Chlorhexidine 2% Cloth) 3 pack Taper DAILY@04 TOP 01/03/17 04:00 12/30/17 03:59 01/03/17 00:43 (Chlorhexidine 2% Cloth) 3 pack UNSCH PRN TOP 01/02/17 16:30 (D50w (Vial) Inj) 50 ml UNSCH PRN IV PUSH 01/02/17 16:30 (Norvasc) 5 mg BID PO 01/02/17 21:00 01/03/17 08:27 (Tenormin) 50 mg DAILY PO 01/02/17 17:00 01/03/17 08:36 (Phoslo) 667 mg TID PO 01/02/17 18:00 01/03/17 08:27 (Vitamin D3) 5,000 units DAILY PO 01/02/17 17:00 01/02/17 09:00 (Catapres) 0.3 mg TID PO 01/02/17 18:00 01/03/17 08:27 (Lactulose Liq) 15 ml BID PO 01/02/17 21:00 01/03/17 08:27 Hydralazine HCl 10 mg 10 mg Q6H PRN IV PUSH 01/02/17 17:00 01/03/17 05:42 Sodium Bicarbonate 150 meq/Sterile Water 1,000 ml @ 75 mls/hr [id number] IV 01/03/17 00:00 01/03/17 00:43 Piperacillin Sod/ Tazobactam Sod 50 ml @ 100 mls/hr Q8H IV 01/03/17 08:00 01/03/17 08:51 (Vancomycin Consult Pharmacy) 0 ml @ 0 mls/hr UNSCH OTHER 01/03/17 08:00 (Tylenol) 650 mg Q6H PRN PO 01/03/17 08:30 (D50w (Vial) Inj) 50 ml UNSCH PRN IV 01/03/17 12:00 UNV (Glucagon Inj) 1 mg UNSCH PRN OTHER 01/03/17 12:00 UNV (NovoLIN R SUPPLEMENTAL SCALE) 1 Q6H SQ 01/03/17 12:00 UNV Family History Noncontributory Social History Denies smoking or alcohol use Physical Exam Vital Signs Vital Signs Date Time Temp Pulse Resp B/P Pulse Ox O2 Delivery O2 Flow Rate FiO2 01/03/17 10:00 85 01/03/17 09:37 97 01/03/17 08:00 112 01/03/17 08:00 99.3 112 22 160/75 99 01/03/17 06:00 118 01/03/17 05:30 115 20 168/77 99 01/03/17 05:00 114 22 154/82 99 01/03/17 04:31 118 15 173/78 98 01/03/17 04:30 119 15 186/81 98 01/03/17 04:00 117 01/03/17 04:00 100.6 117 23 159/76 99 01/03/17 03:30 117 27 155/84 100 01/03/17 03:00 123 27 142/90 96 01/03/17 02:31 132 21 137/79 100 01/03/17 02:00 129 23 130/78 100 01/03/17 02:00 129 01/03/17 01:30 119 26 118/67 98 01/03/17 00:00 99.6 134 28 142/71 99 01/03/17 00:00 134 01/02/17 22:00 136 01/02/17 20:41 98 21 01/02/17 20:00 98.8 135 32 143/75 93 01/02/17 20:00 135 01/02/17 19:13 99.0 140 20 137/77 99 01/02/17 18:31 136 19 197/101 95 Room Air 01/02/17 18:27 144 25 140/92 98 Room Air 01/02/17 17:39 145 28 181/92 94 Room Air 01/02/17 17:04 98 21 01/02/17 16:45 136 16 182/98 97 Room Air 01/02/17 16:05 99.0 140 22 178/122 99 Room Air 01/02/17 14:59 97 Room Air 01/02/17 14:58 99.4 134 26 197/95 97 Room Air Physical Exam GENERAL: Well-nourished, well-developed patient. SKIN: Warm and dry. HEAD: Normocephalic. EYES: No scleral icterus. No injection or drainage. NECK: Supple, trachea midline. No JVD or lymphadenopathy. CARDIOVASCULAR: Regular rate and rhythm without murmurs, gallops, or rubs. RESPIRATORY: Breath sounds equal bilaterally. No accessory muscle use. GASTROINTESTINAL: Abdomen soft, non-tender, nondistended. PD catheter in place EXTREMITIES: No cyanosis, or edema. NEUROLOGICAL: Awake, alert, and oriented x 3. Non-focal. Laboratory Laboratory Tests Test 01/02/17 01/02/17 01/02/17 01/02/17 15:08 17:45 18:50 20:20 White Blood Count 10.8 Red Blood Count 3.31 Hemoglobin 9.9 Hematocrit 31.8 Mean Corpuscular Volume 96.2 Mean Corpuscular Hemoglobin 30.0 Mean Corpuscular Hemoglobin 31.2 Concent Red Cell Distribution Width 15.3 Platelet Count 94 Mean Platelet Volume 10.5 Neutrophils (%) (Auto) 91.7 Lymphocytes (%) (Auto) 3.6 Monocytes (%) (Auto) 4.2 Eosinophils (%) (Auto) 0.2 Basophils (%) (Auto) 0.3 Neutrophils # (Auto) 9.9 Lymphocytes # (Auto) 0.4 Monocytes # (Auto) 0.5 Eosinophils # (Auto) 0.0 Basophils # (Auto) 0.0 CBC Comment AUTO DIFF Differential Comment AUTO DIFF CONFIRMED Prothrombin Time 11.3 Prothromb Time International 1.0 Ratio Activated Partial 22.2 Thromboplast Time Urine Color LIGHT-YELLOW Urine Turbidity CLEAR Urine pH 6.0 Urine Specific [place] 1.015 Urine Protein 30 Urine Glucose (UA) 1000 Urine Ketones NEG Urine Occult Blood MOD Urine Nitrite NEG Urine Bilirubin NEG Urine Urobilinogen LESS THAN 2.0 Urine Leukocyte Esterase NEG Urine RBC LESS THAN 1 Urine WBC 4 Urine Bacteria RARE Urine Hyaline Casts 4 Microscopic Urinalysis Comment CATH-CULTURE IND Sodium Level 127 Potassium Level 4.6 Chloride Level 90 Carbon Dioxide Level 19.6 Anion Gap 17 Blood Urea Nitrogen 89 Creatinine 6.63 Estimat Glomerular Filtration 10 Rate Random Glucose 1223 777 612 Lactic Acid Level 3.4 4.7 Calcium Level 8.2 Total Bilirubin 1.8 Aspartate Amino Transf 56 (AST/SGOT) Alanine Aminotransferase 79 (ALT/SGPT) Alkaline Phosphatase 157 Ammonia 52 Total Creatine Kinase 241 Troponin I 0.19 Total Protein 5.5 Albumin 2.6 Thyroid Stimulating Hormone 0.610 3rd Gen Nasal Screen MRSA (PCR) MRSA NOT DETECTED Test 01/02/17 01/03/17 01/03/17 21:49 03:05 09:50 Sodium Level 141 144 Potassium Level 4.0 4.0 Chloride Level 104 104 Carbon Dioxide Level 15.4 25.2 Anion Gap 22 15 Blood Urea Nitrogen 91 86 Creatinine 6.47 6.07 Estimat Glomerular Filtration 11 11 Rate Random Glucose 429 124 Lactic Acid Level 9.2 Calcium Level 7.8 8.1 Troponin I 0.76 1.41 White Blood Count 6.5 Red Blood Count 2.85 Hemoglobin 8.8 Hematocrit 25.4 Mean Corpuscular Volume 89.4 Mean Corpuscular Hemoglobin 30.8 Mean Corpuscular Hemoglobin 34.5 Concent Red Cell Distribution Width 15.0 Platelet Count 63 Mean Platelet Volume 9.8 Neutrophils (%) (Auto) 82.4 Lymphocytes (%) (Auto) 10.5 Monocytes (%) (Auto) 4.9 Eosinophils (%) (Auto) 2.0 Basophils (%) (Auto) 0.2 Neutrophils # (Auto) 5.3 Lymphocytes # (Auto) 0.7 Monocytes # (Auto) 0.3 Eosinophils # (Auto) 0.1 Basophils # (Auto) 0.0 CBC Comment AUTO DIFF Differential Comment AUTO DIFF CONFIRMED Platelet Estimate LOW Platelet Morphology Comment NORMAL Total Bilirubin 1.3 Direct Bilirubin 0.8 Indirect Bilirubin 0.5 Aspartate Amino Transf 63 (AST/SGOT) Alanine Aminotransferase 69 (ALT/SGPT) Alkaline Phosphatase 118 Ammonia 48 Total Protein 5.0 Albumin 2.2 Blood Gas Puncture Site RT BRACHIAL Blood Gas Patient Temperature 98.6 Blood Gas HCO3 26 Blood Gas Base Excess 2.6 Blood Gas Oxygen Saturation 92 Arterial Blood pH 7.48 Arterial Blood Partial 35 Pressure CO2 Arterial Blood Partial 75 Pressure O2 Arterial Blood Oxygen Content 11.0 Arterial Blood 1.6 Carboxyhemoglobin Arterial Blood Methemoglobin 1.7 Blood Gas Hemoglobin 8.4 Blood Gas Inspired Oxygen 21 Date/Time Procedure Status Source Growth 01/02/17 15:10 Aerobic Blood Culture - Preliminary Resulted Blood Peripheral NO GROWTH IN 1 DAY 01/02/17 15:10 Anaerobic Blood Culture - Preliminary Resulted Blood Peripheral NO GROWTH IN 1 DAY 01/02/17 15:08 Urine Culture Received Urine Clean Catch Pending Result Diagram: 01/03/17 0305 01/03/17 0305 Imaging Last Impressions Abdomen/Pelvis CT 01/03/17 0000 Signed Impressions: Service Date/Time: Tuesday, January 03, 2017 09:12 - CONCLUSION: 1. Gastric wall thickening of uncertain etiology. 2. There is a small volume of free fluid in the abdomen and pelvis. This may partially be related to the peritoneal dialysis. 3. Trace bilateral pleural effusions with adjacent atelectasis. Juan Salvador MD Chest X-Ray 01/02/17 7812 Signed Impressions: Service Date/Time: Monday, January 02, 2017 15:26 - CONCLUSION: Mild basilar atelectasis. Juan Ramirez MD Head CT 01/02/17 0000 Signed Impressions: Service Date/Time: Monday, January 02, 2017 16:33 - CONCLUSION: 1. No acute intracranial abnormalities. No significant change from May 2016. Marcello Disla MD Abdomen Ultrasound 01/02/17 0000 Signed Impressions: Service Date/Time: Monday, January 02, 2017 17:08 - CONCLUSION: 1. Mild dilatation of the common bile duct. No intrahepatic ductal dilatation. Typically MRCP would be suggested, however, this patient was uncooperative during this exam and MRI is very sensitive to motion artifact. 2. Sonographic findings consistent with medical renal disease. 3. Trace amount ascites. 4. 5 mm gallbladder polyp. 5. Gallbladder wall thickening, however, the gallbladder is poorly distended and this will artifactually increase this thickness. No sonographic evidence to suggest acute cholecystitis. Satinder Khanna Jr., MD Assessment and Plan Problem List: (1) ESRD (end stage renal disease) Plan: I will resume the peritoneal dialysis and continue to monitor his progress while he is in the hospital orders have been given patient has new onset of diabetes and continue to monitor while in the hospital he is on insulin (2) Diabetic hyperosmolar non-ketotic state Plan: Blood glucose is better and electrolytes are stable (3) HTN (hypertension) Plan: Blood pressure is stable (4) Lactic acidosis Plan: Patient has resolved anion gap lactic acid was above 9 yesterday follow in a.m. Problem Qualifiers (1) HTN (hypertension): Qualified Code: I10 - Essential hypertension Ned Sosa MD January 03, 2017 12:13
[2017-01-03] MEDS ORDERED: SODIUM CHLORIDE 0.9% FLUSH 10 ML FLUSH IV FLUSH PRN (12:15)
[2017-01-03] MEDS ORDERED: HEPARIN SODIUM - IV 10,000 UNITS/10 ML VIAL XX PRN (12:15)
[2017-01-03 12:35] LABS: BASOPHIL % 0.1 % (0.0-2.0); EOSINOPHIL # 0.1 TH/MM3 (0-0.4); EOSINOPHIL % 2.4 % (0.0-4.0); HEMATOCRIT 25.9 % (39.0-51.0); LYMPH % 8.4 % (9.0-44.0); LYMPHOCYTE # 0.5 TH/MM3 (1.0-4.8); MEAN CELL VOLUME 89.1 FL (80.0-100.0); MEAN CORPUSCULAR HEMOGLOBIN 31.1 PG (27.0-34.0); MEAN CORPUSCULAR HGB CONC 34.9 % (32.0-36.0); MONO % 1.8 % (0.0-8.0); NEUT % 87.3 % (16.0-70.0); PLATELET COUNT 62 TH/MM3 (150-450); RED BLOOD COUNT 2.91 MIL/MM3 (4.50-5.90); RED CELL DISTRIBUTION WIDTH 15.2 % (11.6-17.2); WHITE BLOOD COUNT 5.7 TH/MM3 (4.0-11.0)
[2017-01-03 12:39] LABS: HEMO FLAGS AUTO DIFF
[2017-01-03 12:51] LABS: PROTHROMBIN TIME - PATIENT 11.4 SEC (9.8-11.6)
[2017-01-03 12:52] LABS: ANION GAP 14 MEQ/L (5-15); AST (GOT) 59 U/L (15-37); BICARBONATE 28.2 MEQ/L (21.0-32.0); BLOOD UREA NITROGEN 81 MG/DL (7-18); CHLORIDE 103 MEQ/L (98-107); GLOMERULAR FILTRATION RATE 11 ML/MIN (>89); SODIUM (NA) 145 MEQ/L (136-145)
[2017-01-03 13:00] LABS: ALKALINE PHOSPHATASE 97 U/L (45-117); ALT (GPT) 58 U/L (12-78); TOTAL BILIRUBIN ADULT 1.1 MG/DL (0.2-1.0)
[2017-01-03 13:39] LABS: BANDS 27 % (0-6); EOSINOPHILS 1 % (0-4); PLATELET ESTIMATE SMEAR LOW (NORMAL); PLATELET MORPHOLOGY NORMAL (NORMAL); POLYS (SEG NEUTROPHILS) 61 % (16-70); SCAN/DIFF FINAL DIFF MANUAL; WBC DIFF SAMPLE 100
[2017-01-03] MEDS: PANTOPRAZOLE SODIUM 40 MG VIAL IV SCH (16:24)
--- NOTE | 2017-01-03 16:49 | EKG ---
Date Performed: 01/02/2017 Time Performed: 14:47:15 PTAGE: 61 years EKG: SINUS TACHYCARDIA WITH SHORT CO INTERVAL LEFT VENTRICULAR HYPERTROPHY AND ST-T CHANGE SINCE PREVIOUS TRACING 10/20/2016, HEART RATE IS FASTER, OTHERWISE NO SIGNIFICANT CHANGE. PREV IOUS TRACIN10/20/2016 21.59 DOCTOR: Jose Francisco Lucero Interpretating Date/Time 01/03/2017 16:47:25
[2017-01-03] MEDS: ACETAMINOPHEN 325 MG TAB PO PRN (21:41)
[2017-01-04] VITALS (13 sets, daily range): BP systolic 118–168; BP diastolic 71–80; PULSE 74–90; RESP 11–21; TEMP 98.8–99.6; O2SAT 95–100
[2017-01-04] MEDS: PIPERACIL-TAZO 3.375 GM PREMIX 50 ML IV SCH ×3 (00:29→16:28)
[2017-01-04] MEDS: RESP: ALBUTEROL 2.5 MG/IPRATROPIUM 0.5 MG NEB (SCH) INH ×4 (03:47→22:00)
[2017-01-04] MEDS: CHLORHEXIDINE GLUCONATE 2 % 1 PACK (2 CLOTHS) TOP SCH (04:00)
[2017-01-04] MEDS: hydrALAZINE HCL 20 MG/ML VIAL IV PUSH PRN (04:22)
[2017-01-04] MEDS: ONDANSETRON HCL 4 MG/2 ML VIAL IV PUSH PRN ×2 (04:22→20:48)
[2017-01-04] MEDS: ACETAMINOPHEN 325 MG TAB PO PRN (04:22)
[2017-01-04] MEDS: INSULIN NovoLIN REGULAR SUPPLEMENTAL SCALE SQ SCH ×4 (06:00→17:50)
[2017-01-04 09:03] LABS: AUTOMATED NEUTROPHIL # 3.4 TH/MM3 (1.8-7.7); EOSINOPHIL # 0.1 TH/MM3 (0-0.4); EOSINOPHIL % 2.5 % (0.0-4.0); HEMATOCRIT 28.6 % (39.0-51.0); LYMPH % 6.3 % (9.0-44.0); LYMPHOCYTE # 0.2 TH/MM3 (1.0-4.8); MEAN CELL VOLUME 91.3 FL (80.0-100.0); MEAN CORPUSCULAR HEMOGLOBIN 31.3 PG (27.0-34.0); MEAN CORPUSCULAR HGB CONC 34.3 % (32.0-36.0); MONO % 1.3 % (0.0-8.0); NEUT % 89.9 % (16.0-70.0); PLATELET COUNT 63 TH/MM3 (150-450); RED BLOOD COUNT 3.14 MIL/MM3 (4.50-5.90); RED CELL DISTRIBUTION WIDTH 15.7 % (11.6-17.2); WHITE BLOOD COUNT 3.7 TH/MM3 (4.0-11.0)
[2017-01-04 09:15] LABS: HEMO FLAGS AUTO DIFF
[2017-01-04] MEDS: cloNIDine HCL 0.3 MG TAB PO SCH ×3 (09:19→16:28)
[2017-01-04] MEDS: CHOLECALCIFEROL (VIT D3) 5000 UNIT CAP PO SCH (09:19)
[2017-01-04] MEDS: ATENOLOL 50 MG TAB PO SCH (09:19)
[2017-01-04] MEDS: CALCIUM ACETATE 667 MG CAP PO SCH ×3 (09:19→16:27)
[2017-01-04] MEDS: LACTULOSE SYRUP 20 GM/30 ML CUP PO SCH ×2 (09:19→20:48)
[2017-01-04] MEDS: amLODIPine BESYLATE 5 MG TAB PO SCH ×2 (09:19→20:48)
[2017-01-04 09:32] LABS: ALKALINE PHOSPHATASE 98 U/L (45-117); ALT (GPT) 54 U/L (12-78); ANION GAP 14 MEQ/L (5-15); AST (GOT) 41 U/L (15-37); BICARBONATE 26.1 MEQ/L (21.0-32.0); BLOOD UREA NITROGEN 74 MG/DL (7-18); CHLORIDE 100 MEQ/L (98-107); GLOMERULAR FILTRATION RATE 11 ML/MIN (>89); SODIUM (NA) 140 MEQ/L (136-145); TOTAL BILIRUBIN ADULT 0.9 MG/DL (0.2-1.0)
--- NOTE | 2017-01-04 10:05 | HHI.PR ---
Subjective Remarks Follow-up for altered mental status Patient is fairly alert at the moment. He stated that he has no history of diabetes. He denies any pain. Patient stated that he is tolerating by mouth intake. Patient's nurse has no complaints. Objective Vitals Vital Signs Date Time Temp Pulse Resp B/P Pulse Ox O2 Delivery O2 Flow Rate FiO2 01/04/17 08:00 82 01/04/17 06:00 79 01/04/17 04:00 98.9 81 19 168/80 98 01/04/17 04:00 81 01/04/17 02:00 77 01/04/17 00:00 98.9 78 11 122/77 97 01/04/17 00:00 78 01/03/17 22:00 87 01/03/17 21:08 100 01/03/17 20:00 100.1 82 18 155/75 100 01/03/17 20:00 82 01/03/17 18:00 90 01/03/17 16:00 88 01/03/17 16:00 100.3 95 24 125/72 100 01/03/17 14:00 87 01/03/17 12:00 99.9 90 24 110/68 96 01/03/17 12:00 85 01/03/17 10:00 85 I/O 01/03/17 01/03/17 01/03/17 01/04/17 01/04/17 01/04/17 07:00 15:00 23:00 07:00 15:00 23:00 Intake Total 1535 ml 890 ml 0 ml 105 ml Output Total 165 ml 770 ml 700 ml 400 ml 140 ml Balance 1370 ml 120 ml -700 ml -295 ml -140 ml Intake Oral 0 ml 0 ml IV Total 1535 ml 890 ml 0 ml 105 ml Output Urine Total 165 ml 650 ml 700 ml 400 ml Gastric Drainage Total 120 ml Peritoneal Fluid 140 ml # Bowel Movements 2 2 0 Result Diagram: 01/04/17 0757 01/04/17 0757 Objective Remarks GENERAL: in NAD CARDIOVASCULAR: Regular rate and rhythm without murmurs, gallops, or rubs. RESPIRATORY: Breath sounds equal bilaterally. No accessory muscle use. GASTROINTESTINAL: Abdomen soft, non-tender, nondistended. + cath in place MUSCULOSKELETAL: No cyanosis, or edema. BACK: Nontender without obvious deformity. No CVA tenderness. Medications and IVs Current Medications IV Flush 2 ml 2 ml UNSCH PRN IV FLUSH FLUSH AFTER USING IV ACCESS; Start at 15:00 Sodium Chloride (NS 1000 ml Inj) 1,000 ml @ 1,000 mls/hr Q1H IV Last administered on 01/02/17 15:20; Start 01/02/17 at 14:52; Stop 01/02/17 at 15:51 ; Status DC Ondansetron HCl 4 mg 4 mg ONCE ONCE IV PUSH Last administered on 01/02/17 15: 27; Start 01/02/17 at 15:30; Stop 01/02/17 at 15:31; Status DC Sodium Chloride 1,000 ml @ 1,000 mls/hr Q1H ONCE IV Last administered on 16:20; Start 01/02/17 at 16:03; Stop 01/02/17 at 16:24; Status DC Sodium Chloride 1,000 ml @ 1,000 mls/hr Q1H ONCE IV ; Start 01/02/17 at 16:03; Stop 01/02/17 at 17:02; Status Cancel Sodium Chloride 400 ml @ 1,000 mls/hr Q24M ONCE IV ; Start 01/02/17 at 16:03; Stop 01/02/17 at 16:26; Status Cancel Vancomycin HCl 1000 mg/Sodium Chloride 250 ml @ 250 mls/hr ONCE STAT IV ; Start 01/02/17 at 16:10; Stop 01/02/17 at 17:09; Status Cancel Piperacillin Sod/ Tazobactam Sod (Zosyn 4.5 Gm Premix) 100 ml @ 200 mls/hr ONCE STAT IV Last administered on 01/02/17 16:20; Start 01/02/17 at 16:10; Stop 01/02/17 at 16:24; Status DC Hydralazine HCl (Apresoline Inj) 20 mg ONCE ONCE IV PUSH Last administered on 01/02/17 16:50; Start 01/02/17 at 16:30; Stop 01/02/17 at 16:31; Status DC Pantoprazole Sodium (Protonix Inj) 40 mg Q24H IV Last administered on 16:24; Start 01/02/17 at 17:00 Albuterol/ Ipratropium (Duoneb Neb) 1 ampule Q6HR NEB INH Last administered on 01/03/17 21:06; Start 01/02/17 at 16:30 Albuterol/ Ipratropium (Duoneb Neb) 1 ampule Q2HR NEB PRN INH WHEEZING; Start 01/02/17 at 16:30 Miscellaneous Information 1 Q361D XX ; Start 01/02/17 at 16:30 Chlorhexidine Gluconate (Chlorhexidine 2% Cloth) 3 pack Taper DAILY@04 TOP Last administered on 01/04/17 04:00; Start 01/03/17 at 04:00; Stop 12/30/17 at 03:59 Chlorhexidine Gluconate 3 pack 3 pack UNSCH PRN TOP HYGIENIC CARE; Start at 16:30 Insulin Human Regular/Sodium Chloride (NovoLIN R (IV INFUSION)/NS Inj) 100 ml @ 0 mls/hr TITRATE IV Last administered on 01/02/17 17:34; Start 01/02/17 at 16: 30; Stop 01/03/17 at 11:56; Status DC Dextrose (D50w (Vial) Inj) 50 ml UNSCH PRN IV PUSH SEE LABEL COMMENTS; Start at 16:30 Miscellaneous Information 1 ONCE ONCE OTHER ; Start 01/02/17 at 16:30; Stop at 16:31; Status DC Amlodipine Besylate (Norvasc) 5 mg BID PO Last administered on 01/04/17 09:19 ; Start 01/02/17 at 21:00 Atenolol (Tenormin) 50 mg DAILY PO Last administered on 01/04/17 09:19; Start 01/02/17 at 17:00 Calcium Acetate (Phoslo) 667 mg TID PO Last administered on 01/04/17 09:19; Start 01/02/17 at 18:00 Cholecalciferol (Vitamin D3) 5,000 units DAILY PO Last administered on 09:19; Start 01/02/17 at 17:00 Clonidine 0.3 mg 0.3 mg TID PO Last administered on 01/04/17 09:19; Start at 18:00 Sodium Chloride (NS 1000 ml Inj) 1,000 ml @ 75 mls/hr [id number] IV ; Start at 16:45; Stop 01/02/17 at 22:43; Status DC Lactulose (Lactulose Liq) 15 ml BID PO Last administered on 01/04/17 09:19; Start 01/02/17 at 21:00 Hydralazine HCl (Apresoline Inj) 10 mg Q6H PRN IV PUSH SYS BP GREATER THAN 160 MMHG Last administered on 01/04/17 04:22; Start 01/02/17 at 17:00 Insulin Human Regular (NovoLIN R INJ) 8 units ONCE ONCE IV PUSH Last administered on 01/02/17 17:20; Start 01/02/17 at 17:00; Stop 01/02/17 at 17:01 ; Status DC Midazolam HCl (Versed Inj) 5 mg STK-MED ONCE .ROUTE ; Start 01/02/17 at 19:27; Stop 01/02/17 at 19:28; Status DC Midazolam HCl 2 mg 2 mg ONCE ONCE IV PUSH Last administered on 01/02/17 20:00 ; Start 01/02/17 at 20:00; Stop 01/02/17 at 20:13; Status DC Sodium Chloride 1,000 ml @ 999 mls/hr BOLUS ONCE IV Last administered on 01/02 20:00; Start 01/02/17 at 20:00; Stop 01/02/17 at 21:00; Status DC Sodium Bicarbonate 150 meq/Sterile Water 1,000 ml @ 999 mls/hr Q1H1M IV Last administered on 01/03/17 00:43; Start 01/02/17 at 22:45; Stop 01/02/17 at 23:45 ; Status DC Sodium Bicarbonate 150 meq/Sterile Water 1,000 ml @ 75 mls/hr [id number] IV Last administered on 01/03/17 00:43; Start 01/03/17 at 00:00; Stop 01/03/17 at 13:18 ; Status DC Piperacillin Sod/ Tazobactam Sod 50 ml @ 100 mls/hr Q8H IV Last administered on 01/04/17 09:19; Start 01/03/17 at 08:00 Vancomycin HCl 1000 mg/Sodium Chloride 250 ml @ 250 mls/hr ONCE ONCE IV Last administered on 01/03/17 09:57; Start 01/03/17 at 09:15; Stop 01/03/17 at 10:14 ; Status DC Pharmacy Profile Note (Vancomycin Consult Pharmacy) 0 ml @ 0 mls/hr UNSCH OTHER ; Start 01/03/17 at 08:00 Acetaminophen (Tylenol) 650 mg Q6H PRN PO fever T>101 Last administered on 01/04 04:22; Start 01/03/17 at 08:30 Dextrose (D50w (Vial) Inj) 50 ml UNSCH PRN IV HYPOGLYCEMIA-SEE COMMENTS; Start 01/03/17 at 12:00 Glucagon (Glucagon Inj) 1 mg UNSCH PRN OTHER HYPOGLYCEMIA-SEE COMMENTS; Start 01/03/17 at 12:00 Insulin Human Regular (NovoLIN R SUPPLEMENTAL SCALE) 1 Q6H SQ Last administered on 01/04/17 06:00; Start 01/03/17 at 12:00 Heparin Sodium (Porcine) (Heparin Inj) 1,000 units WITH DIALYSIS PRN XX SEE LABEL COMMENTS; Start 01/03/17 at 12:15 Sodium Chloride (NS Flush) 10 ml UNSCH PRN IV FLUSH SEE LABEL COMMENTS; Start 01/03/17 at 12:15 Ondansetron HCl (Zofran Inj) 4 mg Q6HR PRN IV PUSH NAUSEA Last administered on 01/04/17 04:22; Start 01/04/17 at 04:30 A/P Assessment and Plan Resp insufficiency -Secondary to nonketotic hyperosmolar hyperglycemia. -Resolved. Metabolic encephalopathy -Secondary to nonketotic hyperosmolar hyperglycemia -Resolved. Non-ketotic hyperosmolar hyperglycemia. -Initially admitted to the ICU was put on insulin drip and given IV fluids. -Patient now off insulin drip and on a sliding scale. -We'll get a hemoglobin A1c. Hypertension. -Continue home medication. Lactic acidemia -Abx ( Vanco, Zosyn) monitor doses per renal function. Monitor for signs of infections(fever and WBC). Given Zosyn in the ER. CXR: mild basilar atelectasis and urinalysis showed no evidence of any leukocyte esterase or nitrite. -Patient treated empirically for infection with vancomycin and Zosyn. -If cultures continue to be negative will discontinue antibiotics. Elevated trop -Gas And Oil Checker consulted and did not recommend a cardiac workup. -Recommend an echo which is pending. End-stage renal disease on peritoneal dialysis. -Technical Photographer following. Status post bicarbonate. -Continue peritoneal dialysis. Elevated LFTs. - CT abd/pelvis:Gastric wall thickening of uncertain etiology. There is a small volume of free fluid in the abdomen and pelvis. This may partially be related to the peritoneal dialysis. Anemia, thrombocytopenia -Stable no signs of active bleeding. History of hepatitis C. -Follow-up as outpatient. GI prophylaxis with Protonix 40 milligrams daily and DVT prophylaxis with SCDs. Not on chemical anticoagulation prophylaxis given underlying thrombocytopenia. Discharge Planning Patient requires continued hospitalization. He is on IV antibiotics. If cultures are negative tomorrow continues to improve clinically will discontinue antibiotics and see how patient does off of antibiotics. Hyun Mcdaniel MD January 04, 2017 10:05
[2017-01-04 10:34] LABS: BANDS 24 % (0-6); EOSINOPHILS 3 % (0-4); NEUTROPHIL # MANUAL DIFF 3.2 TH/MM3 (1.8-7.7); POLYS (SEG NEUTROPHILS) 63 % (16-70); WBC DIFF SAMPLE 100
[2017-01-04 10:36] LABS: PLATELET ESTIMATE SMEAR LOW (NORMAL); PLATELET MORPHOLOGY NORMAL (NORMAL); SCAN/DIFF FINAL DIFF MANUAL
[2017-01-04] MEDS ORDERED: VANCOMYCIN 1,000 MG/NS 250 ML IV ONE ×2 (11:00)
--- NOTE | 2017-01-04 12:28 | HHI.NPPN ---
Subjective History of Present Illness 61 year old male with new onset diabetes Hyperglycemic nonketotic state Additional Remarks doing better Review of Systems General Constitutional: Fatigue Objective Data Data 01/03/17 01/04/17 19:00 07:00 Intake Total 890 ml 105 ml Output Total 770 ml 1100 ml Balance 120 ml -995 ml Intake Oral 0 ml 0 ml IV Total 890 ml 105 ml Output Urine Total 650 ml 1100 ml Gastric Drainage Total 120 ml # Bowel Movements 1 1 Vital Signs Date Time Temp Pulse Resp B/P Pulse Ox O2 Delivery O2 Flow Rate FiO2 01/04/17 12:04 96 21 01/04/17 10:00 74 01/04/17 08:00 82 01/04/17 06:00 79 01/04/17 04:00 98.9 81 19 168/80 98 01/04/17 04:00 81 01/04/17 02:00 77 01/04/17 00:00 98.9 78 11 122/77 97 01/04/17 00:00 78 01/03/17 22:00 87 01/03/17 21:08 100 01/03/17 20:00 100.1 82 18 155/75 100 01/03/17 20:00 82 01/03/17 18:00 90 01/03/17 16:00 88 01/03/17 16:00 100.3 95 24 125/72 100 01/03/17 14:00 87 -: 01/04/17 0757 01/04/17 0757 Physical Exam General Appearance: Well Developed, Well Nourished Neck Neck Exam: Neck Supple Pulmonary Resp Exam: Decreased Bases Cardiology CV Exam: Regular, Normal Sinus Rhythm Gastrointestinal/Abdomen GI Exam: Soft, Non-Tender, Bowel Sounds Present Extremeties Extremities Exam: No Edema Assessment/Plan Problem List: (1) ESRD (end stage renal disease) Plan: peritoneal dialysis UF 140 CC continue to monitor his progress while he is in the hospital orders have been given patient has new onset of diabetes on Insulin (2) Diabetic hyperosmolar non-ketotic state Plan: Blood glucose is better and electrolytes are stable (3) HTN (hypertension) Plan: Blood pressure was higher but do get better post medications (4) Lactic acidosis Plan: Patient has resolved anion gap lactic acid 1.6 Problem Qualifiers (1) HTN (hypertension): Qualified Code: I10 - Essential hypertension Ned Sosa MD January 04, 2017 12:28 Ned Sosa MD January 04, 2017 12:28
--- NOTE | 2017-01-04 12:38 | EC ---
Study Study Date:01/04/2017 STUDY CONCLUSIONS SUMMARY - Procedure narrative: Transthoracic echocardiography. Image quality was fair. Scanning was performed from the parasternal, apical, and subcostal acoustic windows. - Left ventricle: The cavity size was normal. Wall thickness was normal. Systolic function was normal. The estimated ejection fraction was in the range of 50% to 55%. Although no diagnostic regional wall motion abnormality was identified, this possibility cannot be completely excluded on the basis of this study. - Mitral valve: Trace regurgitation. If LV function is below 40, please consider prescribing an ACEI or ARB or document rationale for non-use. PROCEDURE DATA STUDY STATUS: Elective. Procedure: Transthoracic echocardiography. Image quality was fair. Scanning was performed from the parasternal, apical, and subcostal acoustic windows. Study completion: The patient tolerated the procedure well. Transthoracic echocardiography. M-mode, complete 2D, complete spectral Doppler, and color Doppler. Patient status: Inpatient. CARDIAC ANATOMY LEFT VENTRICLE: The cavity size was normal. Wall thickness was normal. Systolic function was normal. The estimated ejection fraction was in the range of 50% to 55%. Although no diagnostic regional wall motion abnormality was identified, this possibility cannot be completely excluded on the basis of this study. AORTIC VALVE: Trileaflet; normal thickness leaflets. Doppler: Transvalvular velocity was within the normal range. There was no stenosis. No regurgitation. Peak gradient: 10mm Hg (S). AORTA: Aortic root: The aortic root was normal in size. MITRAL VALVE: Structurally normal valve. Doppler: Transvalvular velocity was within the normal range. There was no evidence for stenosis. Trace regurgitation. LEFT ATRIUM: The atrium was normal in size. RIGHT VENTRICLE: The cavity size was normal. Wall thickness was normal. PULMONIC VALVE: Doppler: Transvalvular velocity was within the normal range. There was no evidence for stenosis. No regurgitation. TRICUSPID VALVE: Structurally normal valve. Doppler: Transvalvular velocity was within the normal range. No regurgitation. PULMONARY ARTERY: The main pulmonary artery was normal-sized. Systolic pressure was within the normal range. RIGHT ATRIUM: The atrium was normal in size. PERICARDIUM: There was no pericardial effusion. SYSTEMIC VEINS: Inferior vena cava: The vessel was normal in size. BASIC MEASUREMENTS ADULT NORMAL Left ventricle LV internal dimension, ED, chordal level, 44.4 mm 43-52 PLAX LV internal dimension, ES, chordal level, 34.6 mm 23-38 PLAX Fractional shortening, chordal level, PLAX *22 % >29 LV posterior wall thickness, ED 7.25 mm IVS/LVPW ratio, ED 1.26 <1.3 Ventricular septum Septal thickness, ED 9.15 mm Aortic valve Leaflet separation 17 mm 15-26 Left atrium Anterior-posterior dimension 32 mm Right ventricle RV internal dimension, ED, PLAX 21.3 mm 19-38 BASIC MEASUREMENTS ADULT NORMAL Aortic valve Leaflet separation 17 mm 15-26 Aorta Root diameter, ED 31 mm 20-37 DOPPLER MEASUREMENTS ADULT NORMAL Aortic valve Peak velocity, S 162 cm/s Peak gradient, S 10 mm Hg Mitral valve Peak E-wave velocity 58.2 cm/s Peak A-wave velocity 80.9 cm/s Peak E/A ratio 0.7 Tricuspid valve Regurgitant peak velocity 165 cm/s Peak RV-RA gradient, S 11 mm Hg Maximal regurgitant velocity 165 cm/s LEGEND: Mean values are shown as u=mean value. Asterisk (*) pena values outside specified normal range. Prepared and signed by Koffi Zayas [id number]
[2017-01-04 13:19] LABS: HEMOGLOBIN A1a 1.5 %; HEMOGLOBIN A1b 1.6 %; HEMOGLOBIN Ao 72.6 %; HEMOGLOBIN F 2.3 %; HEMOGLOBIN LA1C 3.5 %; HEMOGLOBIN P3 8.9 %
[2017-01-04] MEDS: PANTOPRAZOLE SODIUM 40 MG VIAL IV SCH (16:28)
[2017-01-05] VITALS (10 sets, daily range): BP systolic 127–152; BP diastolic 77–86; PULSE 68–103; RESP 10–21; TEMP 98.9–100.6; O2SAT 97–100
[2017-01-05] MEDS: PIPERACIL-TAZO 3.375 GM PREMIX 50 ML IV SCH ×2 (00:54→10:14)
[2017-01-05] MEDS ORDERED: diphenhydrAMINE HCL 25 MG CAP PO ONE (01:15)
[2017-01-05] MEDS: RESP: ALBUTEROL 2.5 MG/IPRATROPIUM 0.5 MG NEB (SCH) INH ×4 (03:04→21:00)
[2017-01-05] MEDS: CHLORHEXIDINE GLUCONATE 2 % 1 PACK (2 CLOTHS) TOP SCH (04:00)
[2017-01-05] MEDS: INSULIN NovoLIN REGULAR SUPPLEMENTAL SCALE SQ SCH ×4 (06:00→18:00)
[2017-01-05] MEDS: LACTULOSE SYRUP 20 GM/30 ML CUP PO SCH ×2 (10:15→21:39)
[2017-01-05] MEDS: CHOLECALCIFEROL (VIT D3) 5000 UNIT CAP PO SCH (10:15)
[2017-01-05] MEDS: ATENOLOL 50 MG TAB PO SCH (10:15)
[2017-01-05] MEDS: cloNIDine HCL 0.3 MG TAB PO SCH ×3 (10:15→17:49)
[2017-01-05] MEDS: amLODIPine BESYLATE 5 MG TAB PO SCH ×2 (10:15→21:39)
[2017-01-05] MEDS: CALCIUM ACETATE 667 MG CAP PO SCH ×3 (10:15→17:49)
--- NOTE | 2017-01-05 11:19 | HHI.PR ---
Subjective Remarks Follow-up for altered mental status and HHN Patient stated that he just ate and felt nauseous. He denies abdominal pain. Denies any emesis. He remains afebrile. Patient is unaware of any diagnosis of diabetes. He stated that his sister is a nurse so she is able to help him with insulin and management of his diabetes. Otherwise no acute events. Objective Vitals Vital Signs Date Time Temp Pulse Resp B/P Pulse Ox O2 Delivery O2 Flow Rate FiO2 01/05/17 10:00 68 01/05/17 08:00 71 01/05/17 06:00 73 01/05/17 04:00 74 01/05/17 04:00 74 10 139/81 100 01/05/17 02:00 74 01/05/17 00:00 99.7 73 21 132/86 100 01/05/17 00:00 73 01/04/17 22:00 75 01/04/17 20:00 74 01/04/17 20:00 99.6 74 21 118/77 100 01/04/17 20:00 100 01/04/17 18:00 74 01/04/17 16:00 77 01/04/17 16:00 98.9 90 17 135/76 98 01/04/17 14:00 81 01/04/17 12:04 96 21 01/04/17 12:00 98.8 83 18 133/71 95 01/04/17 12:00 85 I/O 01/04/17 01/04/17 01/04/17 01/05/17 01/05/17 01/05/17 07:00 15:00 23:00 07:00 15:00 23:00 Intake Total 105 ml 342 ml 247 ml 329 ml Output Total 400 ml 840 ml 500 ml 500 ml 176 ml Balance -295 ml -498 ml -253 ml -171 ml -176 ml Intake Oral 120 ml 240 ml IV Total 105 ml 342 ml 127 ml 89 ml Output Urine Total 400 ml 700 ml 500 ml 500 ml Peritoneal Fluid 140 ml 176 ml # Bowel Movements 0 0 0 0 Result Diagram: 01/04/17 0757 01/04/17 0757 Objective Remarks GENERAL: in NAD CARDIOVASCULAR: Regular rate and rhythm without murmurs, gallops, or rubs. RESPIRATORY: Breath sounds equal bilaterally. No accessory muscle use. GASTROINTESTINAL: Abdomen soft, non-tender, nondistended. + cath in place MUSCULOSKELETAL: No cyanosis, or edema. BACK: Nontender without obvious deformity. No CVA tenderness. Medications and IVs Current Medications IV Flush 2 ml 2 ml UNSCH PRN IV FLUSH FLUSH AFTER USING IV ACCESS; Start at 15:00 Sodium Chloride (NS 1000 ml Inj) 1,000 ml @ 1,000 mls/hr Q1H IV Last administered on 01/02/17 15:20; Start 01/02/17 at 14:52; Stop 01/02/17 at 15:51 ; Status DC Ondansetron HCl 4 mg 4 mg ONCE ONCE IV PUSH Last administered on 01/02/17 15: 27; Start 01/02/17 at 15:30; Stop 01/02/17 at 15:31; Status DC Sodium Chloride 1,000 ml @ 1,000 mls/hr Q1H ONCE IV Last administered on 16:20; Start 01/02/17 at 16:03; Stop 01/02/17 at 16:24; Status DC Sodium Chloride 1,000 ml @ 1,000 mls/hr Q1H ONCE IV ; Start 01/02/17 at 16:03; Stop 01/02/17 at 17:02; Status Cancel Sodium Chloride 400 ml @ 1,000 mls/hr Q24M ONCE IV ; Start 01/02/17 at 16:03; Stop 01/02/17 at 16:26; Status Cancel Vancomycin HCl 1000 mg/Sodium Chloride 250 ml @ 250 mls/hr ONCE STAT IV ; Start 01/02/17 at 16:10; Stop 01/02/17 at 17:09; Status Cancel Piperacillin Sod/ Tazobactam Sod (Zosyn 4.5 Gm Premix) 100 ml @ 200 mls/hr ONCE STAT IV Last administered on 01/02/17 16:20; Start 01/02/17 at 16:10; Stop 01/02/17 at 16:24; Status DC Hydralazine HCl (Apresoline Inj) 20 mg ONCE ONCE IV PUSH Last administered on 01/02/17 16:50; Start 01/02/17 at 16:30; Stop 01/02/17 at 16:31; Status DC Pantoprazole Sodium (Protonix Inj) 40 mg Q24H IV Last administered on 16:28; Start 01/02/17 at 17:00 Albuterol/ Ipratropium (Duoneb Neb) 1 ampule Q6HR NEB INH Last administered on 01/05/17 09:34; Start 01/02/17 at 16:30 Albuterol/ Ipratropium (Duoneb Neb) 1 ampule Q2HR NEB PRN INH WHEEZING; Start 01/02/17 at 16:30 Miscellaneous Information 1 Q361D XX ; Start 01/02/17 at 16:30 Chlorhexidine Gluconate (Chlorhexidine 2% Cloth) 3 pack Taper DAILY@04 TOP Last administered on 01/04/17 04:00; Start 01/03/17 at 04:00; Stop 12/30/17 at 03:59 Chlorhexidine Gluconate 3 pack 3 pack UNSCH PRN TOP HYGIENIC CARE; Start at 16:30 Insulin Human Regular/Sodium Chloride (NovoLIN R (IV INFUSION)/NS Inj) 100 ml @ 0 mls/hr TITRATE IV Last administered on 01/02/17 17:34; Start 01/02/17 at 16: 30; Stop 01/03/17 at 11:56; Status DC Dextrose (D50w (Vial) Inj) 50 ml UNSCH PRN IV PUSH SEE LABEL COMMENTS; Start at 16:30 Miscellaneous Information 1 ONCE ONCE OTHER ; Start 01/02/17 at 16:30; Stop at 16:31; Status DC Amlodipine Besylate (Norvasc) 5 mg BID PO Last administered on 01/05/17 10:15 ; Start 01/02/17 at 21:00 Atenolol (Tenormin) 50 mg DAILY PO Last administered on 01/05/17 10:15; Start 01/02/17 at 17:00 Calcium Acetate (Phoslo) 667 mg TID PO Last administered on 01/05/17 10:15; Start 01/02/17 at 18:00 Cholecalciferol (Vitamin D3) 5,000 units DAILY PO Last administered on 10:15; Start 01/02/17 at 17:00 Clonidine 0.3 mg 0.3 mg TID PO Last administered on 01/05/17 10:15; Start at 18:00 Sodium Chloride (NS 1000 ml Inj) 1,000 ml @ 75 mls/hr [id number] IV ; Start at 16:45; Stop 01/02/17 at 22:43; Status DC Lactulose (Lactulose Liq) 15 ml BID PO Last administered on 01/05/17 10:15; Start 01/02/17 at 21:00 Hydralazine HCl (Apresoline Inj) 10 mg Q6H PRN IV PUSH SYS BP GREATER THAN 160 MMHG Last administered on 01/04/17 04:22; Start 01/02/17 at 17:00 Insulin Human Regular (NovoLIN R INJ) 8 units ONCE ONCE IV PUSH Last administered on 01/02/17 17:20; Start 01/02/17 at 17:00; Stop 01/02/17 at 17:01 ; Status DC Midazolam HCl (Versed Inj) 5 mg STK-MED ONCE .ROUTE ; Start 01/02/17 at 19:27; Stop 01/02/17 at 19:28; Status DC Midazolam HCl 2 mg 2 mg ONCE ONCE IV PUSH Last administered on 01/02/17 20:00 ; Start 01/02/17 at 20:00; Stop 01/02/17 at 20:13; Status DC Sodium Chloride 1,000 ml @ 999 mls/hr BOLUS ONCE IV Last administered on 01/02 20:00; Start 01/02/17 at 20:00; Stop 01/02/17 at 21:00; Status DC Sodium Bicarbonate 150 meq/Sterile Water 1,000 ml @ 999 mls/hr Q1H1M IV Last administered on 01/03/17 00:43; Start 01/02/17 at 22:45; Stop 01/02/17 at 23:45 ; Status DC Sodium Bicarbonate 150 meq/Sterile Water 1,000 ml @ 75 mls/hr [id number] IV Last administered on 01/03/17 00:43; Start 01/03/17 at 00:00; Stop 01/03/17 at 13:18 ; Status DC Piperacillin Sod/ Tazobactam Sod 50 ml @ 100 mls/hr Q8H IV Last administered on 01/05/17 10:14; Start 01/03/17 at 08:00; Stop 01/05/17 at 10:16; Status DC Vancomycin HCl 1000 mg/Sodium Chloride 250 ml @ 250 mls/hr ONCE ONCE IV Last administered on 01/03/17 09:57; Start 01/03/17 at 09:15; Stop 01/03/17 at 10:14 ; Status DC Pharmacy Profile Note (Vancomycin Consult Pharmacy) 0 ml @ 0 mls/hr UNSCH OTHER ; Start 01/03/17 at 08:00; Stop 01/05/17 at 10:16; Status DC Acetaminophen (Tylenol) 650 mg Q6H PRN PO fever T>101 Last administered on 01/04 04:22; Start 01/03/17 at 08:30 Dextrose (D50w (Vial) Inj) 50 ml UNSCH PRN IV HYPOGLYCEMIA-SEE COMMENTS; Start 01/03/17 at 12:00 Glucagon (Glucagon Inj) 1 mg UNSCH PRN OTHER HYPOGLYCEMIA-SEE COMMENTS; Start 01/03/17 at 12:00 Insulin Human Regular (NovoLIN R SUPPLEMENTAL SCALE) 1 Q6H SQ Last administered on 01/05/17 00:00; Start 01/03/17 at 12:00 Heparin Sodium (Porcine) (Heparin Inj) 1,000 units WITH DIALYSIS PRN XX SEE LABEL COMMENTS; Start 01/03/17 at 12:15 Sodium Chloride (NS Flush) 10 ml UNSCH PRN IV FLUSH SEE LABEL COMMENTS; Start 01/03/17 at 12:15 Ondansetron HCl 4 mg 4 mg Q6HR PRN IV PUSH NAUSEA Last administered on 20:48; Start 01/04/17 at 04:30 Vancomycin HCl/ Sodium Chloride (Vancomycin Inj/ NS 250 ml Inj) 250 ml @ 250 mls/hr ONCE ONCE IV Last administered on 01/04/17 12:30; Start 01/04/17 at 11 :00; Stop 01/04/17 at 11:59; Status DC Diphenhydramine HCl 25 mg 25 mg ONCE ONCE PO Last administered on 01/05/17 01 :27; Start 01/05/17 at 01:15; Stop 01/05/17 at 01:16; Status DC Vancomycin HCl/ Sodium Chloride (Vancomycin Inj/ NS 250 ml Inj) 250 ml @ 250 mls/hr ONCE ONCE IV ; Start 01/05/17 at 15:00; Stop 01/05/17 at 15:59 A/P Assessment and Plan Resp insufficiency -Secondary to nonketotic hyperosmolar hyperglycemia. -Resolved. Metabolic encephalopathy -Secondary to nonketotic hyperosmolar hyperglycemia -Resolved. Non-ketotic hyperosmolar hyperglycemia. -Initially admitted to the ICU was put on insulin drip and given IV fluids. -Patient now off insulin drip and on a sliding scale. -Hemoglobin A1c 11.4 this is a new diagnosis of diabetes for the patient. Will consult for religious educator. Most likely he will need to be discharge on insulin. Type 2 diabetes insulin-dependent -See treatment as above. -We'll start patient on a long-acting insulin. Continue with insulin sliding scale. Hypertension. -Continue home medication. Lactic acidemia -Abx ( Vanco, Zosyn) monitor doses per renal function. Monitor for signs of infections(fever and WBC). Given Zosyn in the ER. CXR: mild basilar atelectasis and urinalysis showed no evidence of any leukocyte esterase or nitrite. -Patient treated empirically for infection with vancomycin and Zosyn. -Urine cultures negative. Chest x-ray negative and no signs of pneumonia. Blood cultures negative 3 days. We'll discontinue antibiotics and monitor off antibiotics. Elevated trop -Wet Chemistry Analyst consulted and did not recommend a cardiac workup. -Echo with ejection fraction of 50-55% and mild tricuspid regurgitation otherwise normal. End-stage renal disease on peritoneal dialysis. -Milk Sampler following. Status post bicarbonate. -Continue peritoneal dialysis. Elevated LFTs. - CT abd/pelvis:Gastric wall thickening of uncertain etiology. There is a small volume of free fluid in the abdomen and pelvis. This may partially be related to the peritoneal dialysis. -LFTs are now normal. Patient will need to follow-up with GI as outpatient. Anemia, thrombocytopenia -Stable no signs of active bleeding. History of hepatitis C. -Follow-up as outpatient. GI prophylaxis with Protonix 40 milligrams daily and DVT prophylaxis with SCDs. Not on chemical anticoagulation prophylaxis given underlying thrombocytopenia. Discharge Planning Patient can be transferred out of the ICU. Will monitor off antibiotics. Hyun Mcdaniel MD January 05, 2017 11:19
--- NOTE | 2017-01-05 12:51 | HHI.NPPN ---
Subjective History of Present Illness 61 year old male with new onset diabetes Hyperglycemic nonketotic state Additional Remarks doing better Review of Systems General Constitutional: Fatigue Objective Data Data 01/04/17 01/05/17 19:00 07:00 Intake Total 342 ml 576 ml Output Total 840 ml 1000 ml Balance -498 ml -424 ml Intake Oral 360 ml IV Total 342 ml 216 ml Output Urine Total 700 ml 1000 ml Peritoneal Fluid 140 ml # Bowel Movements 0 0 Vital Signs Date Time Temp Pulse Resp B/P Pulse Ox O2 Delivery O2 Flow Rate FiO2 01/05/17 10:00 68 01/05/17 08:00 71 01/05/17 08:00 99.3 72 14 137/85 97 01/05/17 06:00 73 01/05/17 04:00 74 01/05/17 04:00 74 10 139/81 100 01/05/17 02:00 74 01/05/17 00:00 99.7 73 21 132/86 100 01/05/17 00:00 73 01/04/17 22:00 75 01/04/17 20:00 74 01/04/17 20:00 99.6 74 21 118/77 100 01/04/17 20:00 100 01/04/17 18:00 74 01/04/17 16:00 77 01/04/17 16:00 98.9 90 17 135/76 98 01/04/17 14:00 81 -: 01/04/17 0757 01/04/17 0757 Physical Exam General Appearance: Well Developed, Well Nourished Neck Neck Exam: Neck Supple Pulmonary Resp Exam: Decreased Bases Cardiology CV Exam: Regular, Normal Sinus Rhythm Gastrointestinal/Abdomen GI Exam: Soft, Non-Tender, Bowel Sounds Present Extremeties Extremities Exam: No Edema Assessment/Plan Problem List: (1) ESRD (end stage renal disease) Plan: peritoneal dialysis continue to monitor his progress while he is in the hospital orders have been given patient has new onset of diabetes on Insulin doing better under better control UF 176 ML (2) Diabetic hyperosmolar non-ketotic state Plan: Blood glucose is better and electrolytes are stable (3) HTN (hypertension) Plan: Blood pressure improved (4) Lactic acidosis Plan: Resolved Problem Qualifiers (1) HTN (hypertension): Qualified Code: I10 - Essential hypertension Ned Sosa MD January 05, 2017 12:51
[2017-01-05] MEDS ORDERED: VANCOMYCIN 1,000 MG/NS 250 ML IV ONE ×2 (15:00)
[2017-01-05] MEDS: PANTOPRAZOLE SODIUM 40 MG VIAL IV SCH (17:50)
[2017-01-06] VITALS: BP 126/73; PULSE 80; RESP 19; TEMP 99.6; O2SAT 100
[2017-01-06] MEDS: INSULIN NovoLIN REGULAR SUPPLEMENTAL SCALE SQ SCH ×3 (00:37→13:27)
[2017-01-06] MEDS: CHLORHEXIDINE GLUCONATE 2 % 1 PACK (2 CLOTHS) TOP SCH (03:55)
[2017-01-06 04:00] VITALS: BP 121/70; PULSE 79; RESP 19; TEMP 99.7; O2SAT 98
[2017-01-06] MEDS: RESP: ALBUTEROL 2.5 MG/IPRATROPIUM 0.5 MG NEB (SCH) INH ×2 (04:17→08:51)
[2017-01-06 07:39] LABS: HEMATOCRIT 26.2 % (39.0-51.0); MEAN CELL VOLUME 93.2 FL (80.0-100.0); MEAN CORPUSCULAR HEMOGLOBIN 30.5 PG (27.0-34.0); MEAN CORPUSCULAR HGB CONC 32.8 % (32.0-36.0); PLATELET COUNT 71 TH/MM3 (150-450); RED BLOOD COUNT 2.81 MIL/MM3 (4.50-5.90); RED CELL DISTRIBUTION WIDTH 15.4 % (11.6-17.2); WHITE BLOOD COUNT 4.4 TH/MM3 (4.0-11.0)
[2017-01-06 07:51] LABS: REVIEW FLAG FINAL
[2017-01-06 08:00] VITALS: BP 115/76; PULSE 82; RESP 20; TEMP 98.9; O2SAT 99
[2017-01-06 08:02] LABS: BICARBONATE 27.2 MEQ/L (21.0-32.0); POTASSIUM 3.5 MEQ/L (3.5-5.1)
[2017-01-06 08:11] VITALS: PULSE 82
[2017-01-06] MEDS: ATENOLOL 50 MG TAB PO SCH (08:47)
[2017-01-06] MEDS: CALCIUM ACETATE 667 MG CAP PO SCH ×2 (08:47→13:24)
[2017-01-06] MEDS: cloNIDine HCL 0.3 MG TAB PO SCH ×2 (08:47→13:24)
[2017-01-06] MEDS: amLODIPine BESYLATE 5 MG TAB PO SCH (08:47)
[2017-01-06] MEDS: CHOLECALCIFEROL (VIT D3) 5000 UNIT CAP PO SCH (08:47)
[2017-01-06] MEDS: LACTULOSE SYRUP 20 GM/30 ML CUP PO SCH (08:48)
[2017-01-06] MEDS ORDERED: TRUERESULT BLOSYSTEM (10:42)
[2017-01-06] MEDS ORDERED: NOVOLOGP2 SQ (10:42)
[2017-01-06] MEDS ORDERED: LANTINJ SQ (10:42)
[2017-01-06] MEDS ORDERED: NOVOINJ3 SQ (10:42)
[2017-01-06] MEDS ORDERED: INSU-91 (10:42)
[2017-01-06 12:00] VITALS: BP 124/76; PULSE 81; RESP 20; TEMP 98.6; O2SAT 100
--- NOTE | 2017-01-06 13:24 | HHI.NPPN ---
Subjective History of Present Illness 61 year old male with new onset diabetes Hyperglycemic nonketotic state Additional Remarks doing better Review of Systems General Constitutional: Fatigue Objective Data Data 01/05/17 01/06/17 19:00 07:00 Intake Total 2 ml 360 ml Output Total 176 ml 50 ml Balance -174 ml 310 ml Intake Oral 360 ml IV Total 2 ml Output Urine Total 50 ml Peritoneal Fluid 176 ml # Voids 1 101 # Bowel Movements 1 1 Vital Signs Date Time Temp Pulse Resp B/P Pulse Ox O2 Delivery O2 Flow Rate FiO2 01/06/17 12:00 98.6 81 20 124/76 100 01/06/17 08:11 82 01/06/17 08:00 98.9 82 20 115/76 99 01/06/17 08:00 Room Air 01/06/17 04:00 99.7 79 19 121/70 98 01/06/17 00:00 99.6 80 19 126/73 100 01/05/17 21:01 Room Air 01/05/17 21:00 98 21 01/05/17 20:00 98.9 82 21 127/77 99 01/05/17 16:00 Room Air 01/05/17 16:00 100.6 82 18 152/81 98 -: 01/06/17 0605 01/06/17 0605 Physical Exam General Appearance: Well Developed, Well Nourished Neck Neck Exam: Neck Supple Pulmonary Resp Exam: Decreased Bases Cardiology CV Exam: Regular, Normal Sinus Rhythm Gastrointestinal/Abdomen GI Exam: Soft, Non-Tender, Bowel Sounds Present Extremeties Extremities Exam: No Edema Assessment/Plan Problem List: (1) ESRD (end stage renal disease) Plan: peritoneal dialysis continue to monitor his progress while he is in the hospital patient has new onset of diabetes on Insulin doing better under better control UF 650 ML (2) Diabetic hyperosmolar non-ketotic state Plan: Blood glucose is better and electrolytes are stable (3) HTN (hypertension) Plan: Blood pressure improved (4) Lactic acidosis Plan: Resolved Problem Qualifiers (1) HTN (hypertension): Qualified Code: I10 - Essential hypertension Ned Sosa MD January 06, 2017 13:24
--- NOTE | 2017-01-06 15:33 | HHI.DS ---
Discharge Summary Admission Date January 02, 2017 at 16:28 Discharge Date: January 06, 2017 Admitting Diagnosis hyperosmolar hyperglycemia, hyponatremia, altered mental status (1) Lactic acidosis ICD Code: E87.2 Diagnosis: Principal (2) ESRD (end stage renal disease) ICD Code: N18.6 Diagnosis: Secondary (3) HTN (hypertension) ICD Code: I10 Diagnosis: Secondary (4) Diabetes mellitus ICD Code: E11.9 Diagnosis: Secondary (5) Diabetic hyperosmolar non-ketotic state ICD Code: E11.00 Diagnosis: Principal (6) Encephalopathy acute ICD Code: G93.40 Diagnosis: Principal (7) Respiratory failure ICD Code: J96.90 Diagnosis: Principal Procedures See hospital course Brief History - From Admission patient is a 61-year-old male with past medical history of end-stage renal disease on peritoneal dialysis, hypertension, hepatitis C, who presented to [facility] ED via EMS for altered mental status. According to the ED records the patient began acting unusually this morning and on arrival he was alert, intermittently asking questions. CBC/BMP: 01/06/17 0605 01/06/17 0605 Significant Findings Laboratory Tests Test 01/04/17 01/04/17 01/06/17 07:57 11:29 06:05 White Blood Count 3.7 TH/MM3 (4.0-11.0) Red Blood Count 3.14 MIL/MM3 2.81 MIL/MM3 (4.50-5.90) (4.50-5.90) Hemoglobin 9.8 GM/DL 8.6 GM/DL (13.0-17.0) (13.0-17.0) Hematocrit 28.6 % 26.2 % (39.0-51.0) (39.0-51.0) Platelet Count 63 TH/MM3 71 TH/MM3 (150-450) (150-450) Neutrophils (%) (Auto) 89.9 % (16.0-70.0) Lymphocytes (%) (Auto) 6.3 % (9.0-44.0) Lymphocytes # (Auto) 0.2 TH/MM3 (1.0-4.8) Band Neutrophils % 24 % (0-6) Lymphocytes % 7 % (9-44) Platelet Estimate LOW (NORMAL) Blood Urea Nitrogen 74 MG/DL (7-18) 60 MG/DL (7-18) Creatinine 6.39 MG/DL 7.04 MG/DL (0.60-1.30) (0.60-1.30) Estimat Glomerular Filtration 11 ML/MIN (>89) 10 ML/MIN (>89) Rate Random Glucose 218 MG/DL 126 MG/DL (74-106) (74-106) Calcium Level 7.8 MG/DL 7.6 MG/DL (8.5-10.1) (8.5-10.1) Aspartate Amino Transf 41 U/L (15-37) (AST/SGOT) Total Protein 5.0 GM/DL (6.4-8.2) Albumin 1.7 GM/DL (3.4-5.0) Hemoglobin A1c 11.4 % (4.3-6.0) Imaging Last Impressions Abdomen/Pelvis CT 01/03/17 0000 Signed Impressions: Service Date/Time: Tuesday, January 03, 2017 09:12 - CONCLUSION: 1. Gastric wall thickening of uncertain etiology. 2. There is a small volume of free fluid in the abdomen and pelvis. This may partially be related to the peritoneal dialysis. 3. Trace bilateral pleural effusions with adjacent atelectasis. Juan Salvador MD Chest X-Ray 01/02/17 1452 Signed Impressions: Service Date/Time: Monday, January 02, 2017 15:26 - CONCLUSION: Mild basilar atelectasis. Juan Ramirez MD Head CT 01/02/17 0000 Signed Impressions: Service Date/Time: Monday, January 02, 2017 16:33 - CONCLUSION: 1. No acute intracranial abnormalities. No significant change from May 2016. Marcello Disla MD Abdomen Ultrasound 01/02/17 0000 Signed Impressions: Service Date/Time: Monday, January 02, 2017 17:08 - CONCLUSION: 1. Mild dilatation of the common bile duct. No intrahepatic ductal dilatation. Typically MRCP would be suggested, however, this patient was uncooperative during this exam and MRI is very sensitive to motion artifact. 2. Sonographic findings consistent with medical renal disease. 3. Trace amount ascites. 4. 5 mm gallbladder polyp. 5. Gallbladder wall thickening, however, the gallbladder is poorly distended and this will artifactually increase this thickness. No sonographic evidence to suggest acute cholecystitis. Satinder Khanna Jr., MD PE at Discharge GENERAL: in NAD CARDIOVASCULAR: Regular rate and rhythm without murmurs, gallops, or rubs. RESPIRATORY: Breath sounds equal bilaterally. No accessory muscle use. GASTROINTESTINAL: Abdomen soft, non-tender, nondistended. + cath in place MUSCULOSKELETAL: No cyanosis, or edema. BACK: Nontender without obvious deformity. No CVA tenderness. Pt update on day of discharge Follow-up for HHN Patient had no complaints. He is very alert. His sisters at the bedside. Patient denies any nausea, vomiting or abdominal pain he stated that he is tolerating oral intake. Patient remains afebrile. Patient feels like he is back to his baseline. Hospital Course Resp insufficiency -Secondary to nonketotic hyperosmolar hyperglycemia. -Resolved with treatment of HHN. See treatment as below. Metabolic encephalopathy -Secondary to nonketotic hyperosmolar hyperglycemia -Resolved with treatment of HHN. Non-ketotic hyperosmolar hyperglycemia. -Initially admitted to the ICU was put on insulin drip and given IV fluids. Patient was weaned off of insulin drip and put on subcutaneous insulin -Hemoglobin A1c 11.4 this is a new diagnosis of diabetes for the patient. Patient received education from the party supply specialist and dietitian. He was sent home on subcutaneous insulin. Patient sister who is also diabetic day that she can also assist in helping patient with his insulin. Patient stated that he felt comfortable with the management. Type 2 diabetes insulin-dependent -See treatment as above. Hypertension. -Continue home medication. Lactic acidemia -Abx ( Vanco, Zosyn) monitor doses per renal function. Monitor for signs of infections(fever and WBC). Given Zosyn in the ER. CXR: mild basilar atelectasis and urinalysis showed no evidence of any leukocyte esterase or nitrite. -Patient treated empirically for infection with vancomycin and Zosyn. -Urine cultures negative. Chest x-ray negative and no signs of pneumonia. Blood cultures negative 3 days. Antibiotics was discontinued in which she was negative Elevated trop -Bullet Swaging Machine Adjuster consulted and did not recommend a cardiac workup. -Echo with ejection fraction of 50-55% and mild tricuspid regurgitation otherwise normal. End-stage renal disease on peritoneal dialysis. -Gut Snatcher following. Status post bicarbonate. -Continue peritoneal dialysis. Elevated LFTs. - CT abd/pelvis:Gastric wall thickening of uncertain etiology. There is a small volume of free fluid in the abdomen and pelvis. This may partially be related to the peritoneal dialysis. -LFTs are now normal. Patient will need to follow-up with GI as outpatient. Patient is aware of this. Anemia, thrombocytopenia -Stable no signs of active bleeding. History of hepatitis C. -Follow-up as outpatient. Pt Condition on Discharge: Good Discharge Disposition: Discharge Home Discharge Time: > 30 minutes Discharge Instructions DIET: Follow Instructions for: Heart Healthy Diet, Diabetic Diet Speech Therapy-Diet Recommends: Mechanical Soft Additional Diet Instructions: renal diet Activities you can perform: Regular-No Restrictions Follow up Referrals: Nephrology - 1 Week with Sheila PCP Follow-up - 1 Week New Medications: Blood Glucose Monitoring Supply (Trueresult Blood Glucose) System Kit 1 KIT .ROUTE DIRECTED Blood Sugar Management #1 Ref 0 KIT Carefine Pen [place] 31G X 6 mm (Carefine Pen [place] 31G X 6 mm) 1 Mis Mis 1 EA .ROUTE DIRECTED Blood Sugar Management #1 BOX Insulin Aspart Inj (Novolog Flexpen Inj) 300 Unit/3 Ml Pen 1 UNITS SQ ACHS SLIDING SCALE blood sugar <150 do not give insulin. blood sugar 150-180 give 2 units of insulin before meals. blood sugar 181-200 give 3 units of insulin before meals. blood sugar 201 and above give 4 units of insulin before meals. Blood Sugar Management #1 Ref 0 PEN Insulin Glargine Inj (Lantus Solostar Pen Inj) 300 Unit/3 Ml Pen 5 UNITS SQ DAILY Blood Sugar Management #1 Ref 0 PEN Continued Medications: Amlodipine (Norvasc) 5 Mg Tab 5 MG PO BID #60 Ref 0 TAB Calcium Acetate (Phosphate Bin (Calcium Acetate) 667 Mg Cap 667 MG PO TID #90 Ref 0 CAP Clonidine (Clonidine) 0.3 Mg Tab 0.3 MG PO TID Blood Pressure Management #60 Ref 0 TAB Ranitidine (Ranitidine) 150 Mg Cap 150 MG PO BID #60 Ref 0 CAP Discontinued Medications: Prednisone (Prednisone) 20 Mg Tab 20 MG PO BID #60 Ref 0 TAB Hyun Mcdaniel MD January 06, 2017 15:33
--- NOTE | 2017-01-06 15:33 | HHI.DCPOC ---
Discharge Care Plan Diagnosis: (1) Diabetic hyperosmolar non-ketotic state (2) Diabetes mellitus (3) ESRD (end stage renal disease) Goals to Promote Your Health * To prevent worsening of your condition and complications * To maintain your health at the optimal level Directions to Meet Your Goals Take your medications as prescribed Follow your dietary instruction Follow activity as directed Keep your appointments as scheduled Take your immunizations and boosters as scheduled If your symptoms worsen call your PCP, if no PCP go to Urgent Care Center or Emergency Room Smoking is Dangerous to Your Health. Avoid second hand smoke Call the 24-hour hour crisis hotline for domestic abuse at Hyun Mcdaniel MD January 06, 2017 15:33
[2017-01-06 16:00] VITALS: BP 156/86; PULSE 80; RESP 20; TEMP 97.9; O2SAT 99
== END 2017-01-06 18:29 | disposition home or self-care (01) | DRG 637 ==
LOC: NEPC 14:37 → NEDA 16:28 → HIMN 18:50 → N04B 01-05 12:10
PROVIDERS: ADMIT Family Medicine; ATTEND Family Medicine
DX: E11.01 Type 2 diabetes mellitus with hyperosmolarity with coma (principal); N18.6 End stage renal disease; G93.41 Metabolic encephalopathy; D69.6 Thrombocytopenia, unspecified; E87.2 Acidosis; I12.0 Hypertensive chronic kidney disease with stage 5 chronic kidney disease or end stage renal disease; E87.1 Hypo-osmolality and hyponatremia; J98.11 Atelectasis; E11.22 Type 2 diabetes mellitus with diabetic chronic kidney disease; I07.1 Rheumatic tricuspid insufficiency; B19.20 Unspecified viral hepatitis C without hepatic coma; D64.9 Anemia, unspecified; J44.9 Chronic obstructive pulmonary disease, unspecified; F17.200 Nicotine dependence, unspecified, uncomplicated; Z79.4 Long term (current) use of insulin; Z79.899 Other long term (current) drug therapy; Z99.2 Dependence on renal dialysis
CPT/HCPCS: 36600; 70450; 71010; 74176; 76700; 80048; 80053; 80076; 80202; 81001; 82140; 82550; 82805; 82947; 82948; 83036; 83605; 84443; 84484; 85007; 85025; 85027; 85384; 85610; 85730; 87040; 87086; 87641; 90935; 93005; 93306; 94640; 94664; 96374; 96375; C9113; J0360; J1815; J1817; J2250; J2405; J2543; J3370; J7030; J7050

== ENCOUNTER 2017-01-15 20:50 | Inpatient (IN) | payer MEDICARE, OTHER ==
[~2017-01-15] VITALS: Ht 170.2 cm; Wt 65.9 kg
[~2017-01-15 20:50] MED LIST changes: +INSU-91; +LANTINJ SQ; +NOVOINJ3 SQ; -PRED20 PO; +TRUERESULT BLOSYSTEM; -WHEEMIS3
[2017-01-15 20:56] VITALS: BP 184/92; PULSE 116; RESP 20; TEMP 99.3; O2SAT 98
[2017-01-15] MEDS ORDERED: SODIUM CHLOR 0.9% 1000 ML INJ 1,000 ML IV SCH ×2 (20:57→22:05)
[2017-01-15] MEDS ORDERED: INSULIN HUMAN REGULAR 1,000 UNITS/10 ML VIAL SQ ONE (21:00)
[2017-01-15 21:02] VITALS: O2SAT 99
--- NOTE | 2017-01-15 21:08 | PD ---
HPI Chief Complaint: Diabetic Time Seen by Provider: 21:03 Travel History International Travel<30 days: No Contact w/Intl Traveler<30days: No Traveled to known affect area: No History of Present Illness HPI 61-year-old male that presents to the ED for evaluation of soreness, body aches , elevated blood sugars. Patient has a history of kidney failure using peritoneal dialysis. Per patient. Finish his peritoneal dialysis today because he felt bad and his family called the ambulance for him. Patient has been throwing up a lot today. Per patient although the pain is mostly on the abdomen but also on the arms and legs. Patient was recently diagnosed with diabetes just less than a month ago. Patient was admitted to the hospital secondary to his highly elevated blood sugars. Patient apparently appears to be unclear as to how to treat his diabetes and he has not used his insulin the past 2 days. Patient was brought here by ambulance and was found to have blood sugar critical high. Patient was given some saline. He denies any chest pain or shortness of breath but he does still state he has pain everywhere. Denies any urinary or bowel movement issues. Patient states that his peritoneal dialysis does seem to be working. History somewhat limited as patient does appear to be slightly altered but seems to answer questions somewhat properly. Patient has slight to aspirin. Other medical issues reported today. PFSH Past Medical History Arthritis: Yes Anxiety: No Depression: No Heart Rhythm Problems: No Cancer: No Cardiovascular Problems: Yes (HTN) Chemotherapy: No Chest Pain: Yes Congestive Heart Failure: No COPD: Yes Cerebrovascular Accident: No Diabetes: Yes Patient Takes Glucophage: No Dialysis: Yes (peritoneal) Diminished Hearing: No Endocrine: No Genitourinary: No Hepatitis: Yes (C) Hypertension: Yes Immune Disorder: No Implanted Vascular Access Dvce: Yes (peritoneal dialysis catheter) Musculoskeletal: No Neurologic: No Psychiatric: No Reproductive: No Respiratory: Yes Migraines: Yes Radiation Therapy: No Seizures: No Sickle Cell Disease: No Sleep Apnea: No Thyroid Disease: No Past Surgical History AICD: No Arteriovenous Shunt: No Cardiac Surgery: No Insulin Pump: No Joint Replacement: No Neurologic Surgery: No Pacemaker: No Other Surgery: Yes Social History Alcohol Use: No Tobacco Use: Yes Substance Use: No Allergies-Medications (Allergen,Severity, Reaction): Coded Allergies: Aspirin (Unverified Allergy, Unknown, 01/15/17) HEP C Reported Meds & Prescriptions Reported Meds & Active Scripts Active Trueresult Blood Glucose (Device) System Kit 1 Kit .ROUTE DIRECTED Carefine Pen [place] 31G X 6 mm 1 Mis Mis 1 Ea .ROUTE DIRECTED Novolog Flexpen Inj (Insulin Aspart) 300 Unit/3 Ml Pen 1 Units SQ ACHS SLIDING SCALE blood sugar <150 do not give insulin. blood sugar 150-180 give 2 units of insulin before meals. blood sugar 181-200 give 3 units of insulin before meals. blood sugar 201 and above give 4 units of insulin before meals. Lantus Solostar Pen Inj (Insulin Glargine) 300 Unit/3 Ml Pen 5 Units SQ DAILY Calcium Acetate (Calcium Acetate (Phosphate Bin) 667 Mg Cap 667 Mg PO TID Norvasc (Amlodipine Besylate) 5 Mg Tab 5 Mg PO BID Reported Prednisone 20 Mg Tab 20 Mg PO BID Calcitriol 0.25 Mcg Cap 0.25 Mcg PO DAILY Ranitidine (Ranitidine HCl) 150 Mg Cap 150 Mg PO BID Clonidine (Clonidine HCl) 0.3 Mg Tab 0.3 Mg PO TID Review of Systems Except as stated in HPI: all other systems reviewed are Neg Physical Exam Narrative GENERAL: SKIN: Warm and dry. HEAD: Atraumatic. Normocephalic. EYES: Pupils equal and round. No scleral icterus. No injection or drainage. ENT: No nasal bleeding or discharge. Mucous membranes pink and moist. Tongue is midline. No uvula deviation. NECK: Trachea midline. No JVD. CARDIOVASCULAR: Regular rate and rhythm. No murmurs, S3, S4. RESPIRATORY: No accessory muscle use. Clear to auscultation. Breath sounds equal bilaterally. GASTROINTESTINAL: Abdomen soft, non-tender, somewhat distended. Hepatic and splenic margins not palpable. MUSCULOSKELETAL: Extremities without clubbing, cyanosis, or edema. No obvious deformities. Full range of motion of the upper and lower extremities bilaterally. 2+ pulses bilaterally. NEUROLOGICAL: Awake and alert. No obvious cranial nerve deficits. Motor grossly within normal limits. Five out of 5 muscle strength in the arms and legs. Normal speech. PSYCHIATRIC: Appropriate mood and affect; insight and judgment normal. Data Data Last Documented VS Vital Signs Date Time Temp Pulse Resp B/P Pulse Ox O2 Delivery O2 Flow Rate FiO2 01/15/17 21:02 99 Room Air 01/15/17 20:56 99.3 116 20 184/92 Orders Electrocardiogram (01/15/17 20:57) Complete Blood Count With Diff (01/15/17 20:57) Comprehensive Metabolic Panel (01/15/17 20:57) Prothrombin Time / Inr (Pt) (01/15/17 20:57) Act Partial Throm Time (Ptt) (01/15/17 20:57) Arterial Blood Gas (Abg) (01/15/17 20:57) Lipase (01/15/17 20:57) Urinalysis - C+S If Indicated (01/15/17 20:57) Magnesium (Mg) (01/15/17 20:57) Beta Hydroxybutyrate (Acetone) (01/15/17 20:57) Chest, Single Ap (01/15/17 20:57) Iv Access Insert/Monitor (01/15/17 20:57) Ecg Monitoring (01/15/17 20:57) Oximetry (01/15/17 20:57) Blood Glucose (01/15/17 20:57) Sodium Chlor 0.9% 1000 Ml Inj (Ns 1000 M (01/15/17 20:57) Insulin Human Regular Inj (Novolin R Inj (01/15/17 21:00) Blood Culture (01/15/17 21:00) Lactic Acid (01/15/17 21:00) Ammonia (01/15/17 21:14) Vancomycin Inj (Vancomycin Inj) (01/15/17 22:30) Ampicillin-Sulbactam Inj (Unasyn Inj) (01/15/17 21:45) Acetaminophen (Tylenol) (01/15/17 21:45) Sodium Chlor 0.9% 1000 Ml Inj (Ns 1000 M (01/15/17 22:05) Ct Abd/Pel W/O Iv Contrast (01/15/17 ) ^ Dialysis Permit (01/15/17 22:23) Notify Dr: Other (01/15/17 22:23) ^ Dialysis Catheter Care (01/15/17 22:23) ^ Dialysis Dressing BETHANIE.Q2D (01/15/17 22:23) ^ Dialysis Orders (01/15/17 22:23) Fluid Culture And Gram Stain (01/15/17 22:23) Heparin Inj (Heparin Inj) (01/15/17 22:30) Sodium Chloride 0.9% Flush (Ns Flush) (01/15/17 22:30) Vancomycin Inj (Vancomycin Inj) (01/15/17 22:30) Ceftazidime Inj (Fortaz Inj) (01/16/17 09:00) Peritoneal Cell Count + Diff (01/15/17 22:23) Admit Order (Ed Use Only) (01/15/17 22:33) Labs Laboratory Tests Test 01/15/17 01/15/17 01/15/17 01/15/17 20:57 21:00 21:15 21:50 Blood Gas Puncture Site RT BRACHIAL Blood Gas Patient Temperature 98.6 Blood Gas HCO3 17 mmol/L Blood Gas Base Excess -3.5 mmol/L Blood Gas Oxygen Saturation 92 % Arterial Blood pH 7.67 Arterial Blood Partial 15 mmHg Pressure CO2 Arterial Blood Partial 55 mmHG Pressure O2 Arterial Blood Oxygen Content 11.0 Vol % Arterial Blood 0.7 % Carboxyhemoglobin Arterial Blood Methemoglobin 0.3 % Blood Gas Hemoglobin 8.5 G/DL Oxygen Delivery Device ROOMAIR Blood Gas Inspired Oxygen 21 % White Blood Count 8.1 TH/MM3 Red Blood Count 2.83 MIL/MM3 Hemoglobin 8.8 GM/DL Hematocrit 26.8 % Mean Corpuscular Volume 94.6 FL Mean Corpuscular Hemoglobin 31.2 PG Mean Corpuscular Hemoglobin 32.9 % Concent Red Cell Distribution Width 15.8 % Platelet Count 156 TH/MM3 Mean Platelet Volume 9.7 FL Neutrophils (%) (Auto) 68.9 % Lymphocytes (%) (Auto) 18.3 % Monocytes (%) (Auto) 12.0 % Eosinophils (%) (Auto) 0.2 % Basophils (%) (Auto) 0.6 % Neutrophils # (Auto) 5.6 TH/MM3 Lymphocytes # (Auto) 1.5 TH/MM3 Monocytes # (Auto) 1.0 TH/MM3 Eosinophils # (Auto) 0.0 TH/MM3 Basophils # (Auto) 0.1 TH/MM3 CBC Comment DIFF FINAL Differential Comment Prothrombin Time 11.2 SEC Prothromb Time International 1.0 RATIO Ratio Activated Partial 23.4 SEC Thromboplast Time Sodium Level 130 MEQ/L Potassium Level 4.2 MEQ/L Chloride Level 94 MEQ/L Carbon Dioxide Level 19.4 MEQ/L Anion Gap 17 MEQ/L Blood Urea Nitrogen 54 MG/DL Creatinine 6.99 MG/DL Estimat Glomerular Filtration 10 ML/MIN Rate Random Glucose 760 MG/DL Lactic Acid Level 4.1 mmol/L Calcium Level 7.5 MG/DL Magnesium Level 1.9 MG/DL Total Bilirubin 0.5 MG/DL Aspartate Amino Transf 60 U/L (AST/SGOT) Alanine Aminotransferase 73 U/L (ALT/SGPT) Alkaline Phosphatase 415 U/L Total Protein 5.1 GM/DL Albumin 2.1 GM/DL Lipase 2005 U/L B-Hydroxybutyrate 0.51 MMOL/L Ammonia 59 MCMOL/L Urine Color LIGHT-YELLOW Urine Turbidity CLEAR Urine pH 7.0 Urine Specific Malone 1.013 Urine Protein 30 mg/dL Urine Glucose (UA) 1000 mg/dL Urine Ketones NEG mg/dL Urine Occult Blood TRACE Urine Nitrite NEG Urine Bilirubin NEG Urine Urobilinogen LESS THAN 2.0 MG/DL Urine Leukocyte Esterase NEG Urine RBC LESS THAN 1 /hpf Urine WBC 1 /hpf Microscopic Urinalysis Comment CULT NOT INDICATED MDM Medical Decision Making Medical Screen Exam Complete: Yes Emergency Medical Condition: Yes Medical Record Reviewed: Yes Interpretation(s) CBC & BMP Diagram 01/15/17 21:00 ABG shows PH alkalotic with low CO2 and O2 LFTS with elevated alk phosphatase Lipase of 2000s Lactid acid in the 4s acetone minimally high Last Impressions Chest X-Ray 01/15/172056 Signed Impressions: Service Date/Time: , January 15, 2017 21:26 - CONCLUSION: No acute disease. Juan Ramirez MD Differential Diagnosis DKA versus diabetic hyperosmolar nonketotic state versus sepsis versus lactic acidosis versus dehydration versus ESRD Narrative Course 61-year-old male that presents to the ED for evaluation of body aches, nausea vomiting and elevated blood sugars. Patient was properly examined and was found to have signs and symptoms very concerning for either DKA or diabetic hyperosmolar nonketotic state. Patient has a history of this in the past less than 2 weeks ago. Patient is noncompliant. Patient does appear to be under a lot of distress. Patient is tachycardic and has a slight fever. Apply concern for sepsis. Case was discussed immediately with my attending Dr. Bright who recommends fluids and DKA workup. Labs and imaging ordered. Patient was given 10 units of subcutaneous insulin here as his glucose came critical high here. Labs and imaging showed what appears to be early DKA. Patient appears to be compensating. Patient history of renal failure as well. Patient has a lactic acidosis. Concern for peritonitis present. Case was discussed in my attending who will recommend doing a CT with contrast to any sign of acute disease. Case was discussed with Dr. García who recommends against the IV contrast and recommends treating this is peritonitis with IV antibiotics. Therefore CT without contrast was ordered. IV fluids were started. My attending spoke with the sed special education teacher Dr. Schofield were agrees to admission for DKA and lactic acidosis. Family and patient agree with plan. Diagnosis Primary Impression: DKA (diabetic ketoacidoses) Qualified Code: E10.10 - Diabetic ketoacidosis without coma associated with type 1 diabetes mellitus Additional Impressions: Lactic acidosis Peritonitis ESRD (end stage renal disease) Admitting Information Admitting Physician Requests: Admit Willy Torres Jan 15, 2017 21:08
[2017-01-15 21:18] LABS: BLOOD GAS BASE EXCESS -3.5 mmol/L (-2-2); BLOOD GAS CARBOXYHEMOGLOBIN 0.7 % (0-4); BLOOD GAS HCO3 17 mmol/L (22-26); BLOOD GAS METHEMOGLOBIN 0.3 % (0-2); BLOOD GAS O2 HGB SATURATION 92 % (90-100); BLOOD GAS PCO2 15 mmHg (38-42); BLOOD GAS PO2 55 mmHG (61-120); BLOOD GAS TOTAL HGB 8.5 G/DL (12.0-16.0); TEMP CORR TO 98.6
[2017-01-15 21:19] LABS: CRITICAL VALUE YES; DRAW SITE RT BRACHIAL; FIO2 21 %; NUMBER OF ARTERIAL PUNCTURES 1; OXYGEN DEVICE ROOMAIR; STAT YES
[2017-01-15 21:31] LABS: AUTOMATED NEUTROPHIL # 5.6 TH/MM3 (1.8-7.7); BASOPHIL # 0.1 TH/MM3 (0-0.2); BASOPHIL % 0.6 % (0.0-2.0); EOSINOPHIL % 0.2 % (0.0-4.0); HEMATOCRIT 26.8 % (39.0-51.0); HEMO FLAGS DIFF FINAL; LYMPH % 18.3 % (9.0-44.0); LYMPHOCYTE # 1.5 TH/MM3 (1.0-4.8); MEAN CELL VOLUME 94.6 FL (80.0-100.0); MEAN CORPUSCULAR HEMOGLOBIN 31.2 PG (27.0-34.0); MEAN CORPUSCULAR HGB CONC 32.9 % (32.0-36.0); NEUT % 68.9 % (16.0-70.0); PLATELET COUNT 156 TH/MM3 (150-450); RED BLOOD COUNT 2.83 MIL/MM3 (4.50-5.90); RED CELL DISTRIBUTION WIDTH 15.8 % (11.6-17.2); WHITE BLOOD COUNT 8.1 TH/MM3 (4.0-11.0)
--- NOTE | 2017-01-15 21:34 | PD ---
Data Data Last Documented VS Vital Signs Date Time Temp Pulse Resp B/P Pulse Ox O2 Delivery O2 Flow Rate FiO2 01/15/17 22:00 110 18 170/100 99 Room Air 01/15/17 20:56 99.3 Orders Electrocardiogram (01/15/17 20:57) Complete Blood Count With Diff (01/15/17 20:57) Comprehensive Metabolic Panel (01/15/17 20:57) Prothrombin Time / Inr (Pt) (01/15/17 20:57) Act Partial Throm Time (Ptt) (01/15/17 20:57) Arterial Blood Gas (Abg) (01/15/17 20:57) Lipase (01/15/17 20:57) Urinalysis - C+S If Indicated (01/15/17 20:57) Magnesium (Mg) (01/15/17 20:57) Beta Hydroxybutyrate (Acetone) (01/15/17 20:57) Chest, Single Ap (01/15/17 20:57) Iv Access Insert/Monitor (01/15/17 20:57) Ecg Monitoring (01/15/17 20:57) Oximetry (01/15/17 20:57) Blood Glucose (01/15/17 20:57) Sodium Chlor 0.9% 1000 Ml Inj (Ns 1000 M (01/15/17 20:57) Insulin Human Regular Inj (Novolin R Inj (01/15/17 21:00) Blood Culture (01/15/17 21:00) Lactic Acid (01/15/17 21:00) Ammonia (01/15/17 21:14) Vancomycin Inj (Vancomycin Inj) (01/15/17 22:30) Ampicillin-Sulbactam Inj (Unasyn Inj) (01/15/17 21:45) Acetaminophen (Tylenol) (01/15/17 21:45) Sodium Chlor 0.9% 1000 Ml Inj (Ns 1000 M (01/15/17 22:05) Ct Abd/Pel W/O Iv Contrast (01/15/17 ) ^ Dialysis Permit (01/15/17 22:23) Notify Dr: Other (01/15/17 22:23) ^ Dialysis Catheter Care (01/15/17 22:23) ^ Dialysis Dressing BETHANIE.Q2D (01/15/17 22:23) ^ Dialysis Orders (01/15/17 22:23) Fluid Culture And Gram Stain (01/15/17 22:23) Heparin Inj (Heparin Inj) (01/15/17 22:30) Sodium Chloride 0.9% Flush (Ns Flush) (01/15/17 22:30) Vancomycin Inj (Vancomycin Inj) (01/15/17 22:30) Ceftazidime Inj (Fortaz Inj) (01/16/17 09:00) Peritoneal Cell Count + Diff (01/15/17 22:23) Admit Order (Ed Use Only) (01/15/17 22:33) Triglycerides (01/15/17 21:00) Phosphorus (Po4) (01/15/17 21:00) Labs Laboratory Tests Test 01/15/17 01/15/17 01/15/17 01/15/17 20:57 21:00 21:15 21:50 Blood Gas Puncture Site RT BRACHIAL Blood Gas Patient Temperature 98.6 Blood Gas HCO3 17 mmol/L Blood Gas Base Excess -3.5 mmol/L Blood Gas Oxygen Saturation 92 % Arterial Blood pH 7.67 Arterial Blood Partial 15 mmHg Pressure CO2 Arterial Blood Partial 55 mmHG Pressure O2 Arterial Blood Oxygen Content 11.0 Vol % Arterial Blood 0.7 % Carboxyhemoglobin Arterial Blood Methemoglobin 0.3 % Blood Gas Hemoglobin 8.5 G/DL Oxygen Delivery Device ROOMAIR Blood Gas Inspired Oxygen 21 % Prothrombin Time 11.2 SEC Prothromb Time International 1.0 RATIO Ratio Activated Partial 23.4 SEC Thromboplast Time Lactic Acid Level 4.1 mmol/L White Blood Count 8.1 TH/MM3 Red Blood Count 2.83 MIL/MM3 Hemoglobin 8.8 GM/DL Hematocrit 26.8 % Mean Corpuscular Volume 94.6 FL Mean Corpuscular Hemoglobin 31.2 PG Mean Corpuscular Hemoglobin 32.9 % Concent Red Cell Distribution Width 15.8 % Platelet Count 156 TH/MM3 Mean Platelet Volume 9.7 FL Neutrophils (%) (Auto) 68.9 % Lymphocytes (%) (Auto) 18.3 % Monocytes (%) (Auto) 12.0 % Eosinophils (%) (Auto) 0.2 % Basophils (%) (Auto) 0.6 % Neutrophils # (Auto) 5.6 TH/MM3 Lymphocytes # (Auto) 1.5 TH/MM3 Monocytes # (Auto) 1.0 TH/MM3 Eosinophils # (Auto) 0.0 TH/MM3 Basophils # (Auto) 0.1 TH/MM3 CBC Comment DIFF FINAL Differential Comment Sodium Level 130 MEQ/L Potassium Level 4.2 MEQ/L Chloride Level 94 MEQ/L Carbon Dioxide Level 19.4 MEQ/L Anion Gap 17 MEQ/L Blood Urea Nitrogen 54 MG/DL Creatinine 6.99 MG/DL Estimat Glomerular Filtration 10 ML/MIN Rate Random Glucose 760 MG/DL Calcium Level 7.5 MG/DL Phosphorus Level 3.6 MG/DL Magnesium Level 1.9 MG/DL Total Bilirubin 0.5 MG/DL Aspartate Amino Transf 60 U/L (AST/SGOT) Alanine Aminotransferase 73 U/L (ALT/SGPT) Alkaline Phosphatase 415 U/L Total Protein 5.1 GM/DL Albumin 2.1 GM/DL Triglycerides Level 290 MG/DL Lipase 2005 U/L B-Hydroxybutyrate 0.51 MMOL/L Ammonia 59 MCMOL/L Urine Color LIGHT-YELLOW Urine Turbidity CLEAR Urine pH 7.0 Urine Specific [place] 1.013 Urine Protein 30 mg/dL Urine Glucose (UA) 1000 mg/dL Urine Ketones NEG mg/dL Urine Occult Blood TRACE Urine Nitrite NEG Urine Bilirubin NEG Urine Urobilinogen LESS THAN 2.0 MG/DL Urine Leukocyte Esterase NEG Urine RBC LESS THAN 1 /hpf Urine WBC 1 /hpf Microscopic Urinalysis Comment CULT NOT INDICATED MDM Supervised Visit with XI: Yes Narrative Course I, Dr. Bright, have reviewed the advance practice practitioner's documentation and am in agreement, met with the patient face to face, made the diagnosis, and the medical decision making was done by me. *My assessment and Findings: Patient seen and examined by me in addition to Willy Torres PA-C. This 61- year-old male with a history of perineal dialysis and diabetes presents with abdominal discomfort. Tachycardia. Lactic acidosis. His ABG shows a pH is 7.6 with respiratory alkalosis and superimposed metabolic acidosis with an anion gap. Concern is for DKA versus sepsis. He is being treated with fluid resuscitation the emergency department. Ketones are very weakly positive and his Mucosa fluids alone. Abdominal tenderness to be secondary to bacterial peritonitis secondary to peritoneal dialysis. The patient was discussed with Dr. García by Willy Torres for starting peritoneal antibiotics. The patient states his dialysate has been clear. He was given vancomycin and Unasyn in the emergency department. Dr. García is also to dialyze him. I discussed with Dr. Schofield given his electrolyte disturbance and high blood sugar after dialysis I believe he should be monitored in the ICU for fluid shifts and hemodynamic instability however the patient is stable at this time. She is agreeable. Diagnosis Primary Impression: Abdominal pain Additional Impressions: DKA (diabetic ketoacidoses) Qualified Code: E10.10 - Diabetic ketoacidosis without coma associated with type 1 diabetes mellitus Peritonitis Lactic acidosis Diabetes mellitus CKD (chronic kidney disease) Increased serum lipase level Admitting Information Admitting Physician Requests: Admit Condition: Jason Dixon MD Jan 15, 2017 21:34
--- NOTE | 2017-01-15 21:40 | RADRPT ---
EXAM DATE/TIME: 01/15/2017 21:26 [facility] COMPARISON: CHEST SINGLE AP, January 02, 2017, 15:26. INDICATIONS : Shortness of breath. MEDICAL HISTORY : Diabetes mellitus type II. Chronic obstructive pulmonary disease. Hypertension. Hepatitis C. Mi graines. Renal disease. Dialysis. Arthritis. SURGICAL HISTORY : Peritoneal dialysis catheter. Left knee surgery. ENCOUNTER: Initial ACUITY: 1 day PAIN SCORE: 0/10 LOCATION: Bilateral chest FINDINGS: A single view of the chest demonstrates the lungs to be symmetrically aerated without evidence of mas s, infiltrate or effusion. The cardiomediastinal contours are unremarkable. Osseous structures are intact. CONCLUSION: No acute disease. Juan Ramirez MD on January 15, 2017 at 21:38 Board Certified Radiologist. This report was verified electronically.
[2017-01-15 21:41] LABS: APTT (PATIENT) 23.4 SEC (24.3-30.1); PROTHROMBIN TIME - PATIENT 11.2 SEC (9.8-11.6)
[2017-01-15] MEDS ORDERED: AMPICILLIN-SULBACTAM INJ 3 GM in SODIUM CHLORIDE 0.9% INJ 100 ML IV ONE (21:45)
[2017-01-15] MEDS ORDERED: ACETAMINOPHEN 325 MG TAB PO ONE (21:45)
[2017-01-15 21:56] LABS: ALKALINE PHOSPHATASE 415 U/L (45-117); ALT (GPT) 73 U/L (12-78); ANION GAP 17 MEQ/L (5-15); AST (GOT) 60 U/L (15-37); BETA-HYDROXYBUTYRATE 0.51 MMOL/L (0.00-0.39); BICARBONATE 19.4 MEQ/L (21.0-32.0); BLOOD UREA NITROGEN 54 MG/DL (7-18); CHLORIDE 94 MEQ/L (98-107); GLOMERULAR FILTRATION RATE 10 ML/MIN (>89); MAGNESIUM 1.9 MG/DL (1.5-2.5); POTASSIUM 4.2 MEQ/L (3.5-5.1); SODIUM (NA) 130 MEQ/L (136-145); TOTAL BILIRUBIN ADULT 0.5 MG/DL (0.2-1.0)
[2017-01-15 22:00] VITALS: BP 170/100; PULSE 110; RESP 18; O2SAT 99
[2017-01-15 22:30] LABS: BLOOD, URINE TRACE (NEG); GLUCOSE,URINE 1000 mg/dL (NEG); KETONE, URINE NEG (NEG); NITRITE,URINE NEG (NEG); URINE COLOR LIGHT-YELLOW (YELLW/STRAW)
[2017-01-15] MEDS ORDERED: VANCOMYCIN HCL 1000 MG VIAL IP SCH (22:30)
[2017-01-15] MEDS ORDERED: SODIUM CHLORIDE 0.9% FLUSH 10 ML FLUSH IV FLUSH PRN (22:30)
[2017-01-15] MEDS ORDERED: HEPARIN SODIUM - IV 10,000 UNITS/10 ML VIAL XX PRN (22:30)
[2017-01-15] MEDS ORDERED: VANCOMYCIN INJ 1,000 MG in SODIUM CHLOR 0.9% 250 ML INJ 250 ML IV ONE (22:30)
[2017-01-15 22:31] LABS: COMMENT (UR) CULT NOT INDICATED; CULTURE IF INDICATED CULT NOT INDICATED
[2017-01-15] MEDS ORDERED: PRED20 PO (22:39)
[2017-01-15] MEDS ORDERED: CALC0.25 PO (22:39)
--- NOTE | 2017-01-15 23:13 | RADRPT ---
EXAM DATE/TIME: 01/15/2017 22:54 [facility] COMPARISON: CT ABDOMEN & PELVIS W/O CONTRAST, January 03, 2017, 9:12. INDICATIONS : Abdomen pain with nausea and vomiting. ORAL CONTRAST: No oral contrast ingested. RADIATION DOSE: 7.84 CTDIvol (mGy) MEDICAL HISTORY : Cardiovascular disease. Hypertension. Chronic obstructive pulmonary disease.Diabetes Dialysis Hep C SURGICAL HISTORY : None. ENCOUNTER: Initial ACUITY: 1 day PAIN SCALE: 10/10 LOCATION: abdomen TECHNIQUE: Volumetric scanning of the abdomen and pelvis was performed. Using automated exposure control and ad justment of the mA and/or kV according to patient size, radiation dose was kept as low as reasonably achievable to obtain optimal diagnostic quality images. FINDINGS: Increased ascites, now small to moderate. There is a peritoneal dialysis catheter coiled in the pelvi c cavity posterior to the urinary bladder. No organized or loculated fluid demonstrated. Noncontrast appearance of the liver, spleen, pancreas and adrenal glands within normal limits. Both k idneys are small but without evidence for an acute abnormality. A 2 cm cyst is again seen in the left mid zone. No obstruction or acute inflammatory changes are seen in the gastrointestinal tract. The gastric wall thickening seen on the previous study appears less in the interim. Nasogastric tube has been. Visualized lung bases are clear. Small effusions seen previously have resolved. CONCLUSION: 1. Patient is on peritoneal dialysis. There is small moderate ascites, increased from before. No locu lated fluid. 2. Decreased gastric wall thickening, now mild. Nasogastric tube has been removed. 3. No obstruction or perceptible acute inflammatory changes seen of the gastrointestinal tract. Juan Mercado MD on January 15, 2017 at 23:06 Board Certified Radiologist. This report was verified electronically.
[2017-01-15] MEDS ORDERED: LACTULOSE SYRUP 20 GM/30 ML CUP PO PRN (23:30)
[2017-01-15] MEDS ORDERED: RESP: ALBUTEROL 2.5 MG/3 ML NEB (PRN) INH (23:30)
[2017-01-15] MEDS ORDERED: SENNOSIDES 8.6 MG TAB PO PRN (23:30)
[2017-01-15] MEDS ORDERED: SODIUM CHLORIDE 0.9% FLUSH 10 ML FLUSH PRN (23:30)
[2017-01-15] MEDS ORDERED: MISCELLANEOUS NURSING INFORMATION XX SCH (23:30)
[2017-01-15] MEDS ORDERED: BISACODYL 10 MG SUPP RECTAL PRN (23:30)
[2017-01-15] MEDS ORDERED: CHLORHEXIDINE GLUCONATE 2 % 1 PACK (2 CLOTHS) TOP PRN (23:30)
[2017-01-15] MEDS ORDERED: MAGNESIUM HYDROXIDE SUSP 30 ML CUP PO PRN (23:30)
[2017-01-15] MEDS ORDERED: GLUCAGON 1 MG/ML VIAL OTHER PRN (23:45)
[2017-01-15] MEDS ORDERED: DEXTROSE 50% IN WATER 50 ML VIAL(D50) IV PRN (23:45)
[2017-01-15] MEDS ORDERED: LACTULOSE SYRUP 20 GM/30 ML CUP PO ONE (23:45)
[2017-01-15 23:53] VITALS: BP 168/100; TEMP 99.3
[2017-01-16] VITALS (22 sets, daily range): BP systolic 104–183; BP diastolic 74–96; PULSE 98–117; RESP 19–37; TEMP 98–109.9; O2SAT 98–100
--- NOTE | 2017-01-16 00:03 | HHI.HP ---
HPI Service Critical Care Medicine Primary Care Physician Unknown Admission Diagnosis DKA, lactic acidosis, peritonitis, ESRD Diagnosis: Travel History International Travel<30 Days: No Contact w/Intl Traveler <30 Da: No Traveled to Known Affected Are: No History of Present Illness 61 yo AAM with PMH of end-stage renal disease started on peritoneal dialysis 3 months ago, hypertension, hepatitis C, recent diagnosis of diabetes about 2 weeks ago who presents to [facility] emergency department via [facility] after family member urged him to seek medical attention. He states "I don't really understand how to manage my diabetes". He states blood glucose has been running "high" since he was discharged from the hospital despite taking accucheck tid with sliding scale via insulin pen (though he reported to ED staff he had stopped taking insulin 2 days ago). He states for the last 2 days he has had cramping abdominal pain, vomiting (nonbloody, nonbilious) every time he tries to eat, 4-5 loose stools daily, myalgias, sore throat. He denies melena , has noticed some blood streaks on toilet paper. Temp is 99.3. He denies CP , SOB, hemoptysis, cough. He continues to make urine multiple times daily, no dysuria. Reports compliance with intermittent PD performed nightly and states peritoneal fluid has appeared clear. No discharge at catheter site. ED workup included lipase of 2004, glucose 760, anion gap 17, lactic acid 4.1, beta hydroxybutyrate 0.51, ammonia 59. CT abdomen and pelvis performed without contrast demonstrates no loculated fluid. Liver and pancreas appeared normal. Previously seen gastric wall thickening is improved. Patient states abdominal pain is much better than when he came in; hasn't received any analgesia Past Family Social History Allergies: Coded Allergies: Aspirin (Unverified Allergy, Unknown, 01/15/17) HEP C Past Medical History Hypertension ESRD Hepatitis C (has never been on therapy for it, states he acquired from his who is now ) Diabetes mellitus Chronic low back pain COPD Past Surgical History Laparoscopic assisted peritoneal dialysis catheter placement 10/24 (Dr. Chris) Reported Medications Prednisone 20 mg by mouth twice a day (patient states he is uncertain why he is on this) Clonidine 0.3 mg by mouth 3 times a day Norvasc 5 g by mouth twice a day Zantac 150 mg by mouth twice a day Lantus 5 units subcutaneous daily Insulin sliding scale Calcium acetate 667 mg by mouth 3 times a day Calcitriol 0.25 micrograms by mouth daily Family History Mother had diabetes and of myocardial infarction at age 87 Father at age 98 of natural causes Social History Smoking half pack of cigarettes per day since age 15 Denies use of alcohol Occasionally uses marijuana is He is on disability due to chronic low back pain Physical Exam Vital Signs Vital Signs Date Time Temp Pulse Resp B/P Pulse Ox O2 Delivery O2 Flow Rate FiO2 01/15/17 23:53 99.3 113 17 168/100 99 01/15/17 22:00 110 18 170/100 99 Room Air 01/15/17 21:02 99 Room Air 01/15/17 20:56 99.3 116 20 184/92 98 Physical Exam GENERAL: Thin well-developed male who is laying in ED stretcher , alert and interactive. SKIN: Warm and dry. HEAD: Atraumatic. Normocephalic. EYES: Right pupil 2 mm reactive, left pupil 3 mm and reactive. No scleral icterus. No injection or drainage. ENT: No nasal bleeding or discharge. Upper dentures in place. No oropharyngeal lesions. Poor lower dentition. NECK: Trachea midline. No JVD. CARDIOVASCULAR: Regular rate and rhythm, sinus tachycardia on the monitor with rate of 105. No murmurs rubs or gallops. RESPIRATORY: Breathing comfortably with no accessory muscle use. Equal breath sounds bilaterally with prolonged expiratory phase and bilateral wheezes. No Rales or rhonchi. GASTROINTESTINAL: Abdomen slightly distended with fluid wave, bowel sounds present, nontender, no rebound or guarding. Peritoneal dialysis catheter in place with no warmth or exudate. MUSCULOSKELETAL: Extremities without clubbing, cyanosis. 1+ R ankle edema ( patient states present x 1 month). No calf swelling or tenderness. L leg with no edema or calf tenderness. NEUROLOGICAL: Awake and alert. No obvious cranial nerve deficits. Able to aspirate above. Motor grossly within normal limits.Normal speech. Oriented x4 Laboratory Laboratory Tests Test 01/15/17 01/15/17 01/15/17 01/15/17 20:57 21:00 21:15 21:50 Blood Gas Puncture Site RT BRACHIAL Blood Gas Patient Temperature 98.6 Blood Gas HCO3 17 Blood Gas Base Excess -3.5 Blood Gas Oxygen Saturation 92 Arterial Blood pH 7.67 Arterial Blood Partial 15 Pressure CO2 Arterial Blood Partial 55 Pressure O2 Arterial Blood Oxygen Content 11.0 Arterial Blood 0.7 Carboxyhemoglobin Arterial Blood Methemoglobin 0.3 Blood Gas Hemoglobin 8.5 Oxygen Delivery Device ROOMAIR Blood Gas Inspired Oxygen 21 White Blood Count 8.1 Red Blood Count 2.83 Hemoglobin 8.8 Hematocrit 26.8 Mean Corpuscular Volume 94.6 Mean Corpuscular Hemoglobin 31.2 Mean Corpuscular Hemoglobin 32.9 Concent Red Cell Distribution Width 15.8 Platelet Count 156 Mean Platelet Volume 9.7 Neutrophils (%) (Auto) 68.9 Lymphocytes (%) (Auto) 18.3 Monocytes (%) (Auto) 12.0 Eosinophils (%) (Auto) 0.2 Basophils (%) (Auto) 0.6 Neutrophils # (Auto) 5.6 Lymphocytes # (Auto) 1.5 Monocytes # (Auto) 1.0 Eosinophils # (Auto) 0.0 Basophils # (Auto) 0.1 CBC Comment DIFF FINAL Differential Comment Prothrombin Time 11.2 Prothromb Time International 1.0 Ratio Activated Partial 23.4 Thromboplast Time Sodium Level 130 Potassium Level 4.2 Chloride Level 94 Carbon Dioxide Level 19.4 Anion Gap 17 Blood Urea Nitrogen 54 Creatinine 6.99 Estimat Glomerular Filtration 10 Rate Random Glucose 760 Lactic Acid Level 4.1 Calcium Level 7.5 Magnesium Level 1.9 Total Bilirubin 0.5 Aspartate Amino Transf 60 (AST/SGOT) Alanine Aminotransferase 73 (ALT/SGPT) Alkaline Phosphatase 415 Total Protein 5.1 Albumin 2.1 Triglycerides Level 290 Lipase 2004 B-Hydroxybutyrate 0.51 Ammonia 59 Urine Color LIGHT-YELLOW Urine Turbidity CLEAR Urine pH 7.0 Urine Specific [place] 1.013 Urine Protein 30 Urine Glucose (UA) 1000 Urine Ketones NEG Urine Occult Blood TRACE Urine Nitrite NEG Urine Bilirubin NEG Urine Urobilinogen LESS THAN 2.0 Urine Leukocyte Esterase NEG Urine RBC LESS THAN 1 Urine WBC 1 Microscopic Urinalysis Comment CULT NOT INDICATED Date/Time Procedure Status Source Growth 01/15/17 21:00 Aerobic Blood Culture Received Blood Peripheral Pending 01/15/17 21:00 Anaerobic Blood Culture Received Blood Peripheral Pending Result Diagram: 01/15/17209901/15/172099 Assessment and Plan Assessment and Plan NEURO: Hyperammonemia elevated ammonia level, unclear clinical significance, followup. Lortab as needed for pain. Morphine as needed for breakthrough pain RESP: Acute respiratory alkalosis COPD Tobacco abuse Pt was previously on prednisone, unclear if secondary to COPD? Pt uncertain. Will hold for now in view of hyperglycemia Duoneb q6 hours. Albuterol q2 hours prn. Unclear why patient had acute respiratory alkalosis on arrival and uncertain if blood gas is arterial sample though noted PaO2 of 55. ?pain/anxiety. Sats are currently 99% on RA. PE is a consideration given respiratory alkalosis and tachycardia, but patient has no symptoms of SOB/CP/hemoptysis and does have wheezing on exam. Will do RLE u/s for his pedal edema and initiate anticoagulation if appropriate. If negative u/s will consider d-dimer and then VQ scan if positive ddimer. Doubt salicylate (ASA allergy), but level pending. CV: Hypertension Hypertriglyceridemia Triglyceride 290, Check remainder of lipid panel. Continue clonidine 0.3 g by mouth 3 times a day, Norvasc 5 mg by mouth twice a day Labetalol prn SBP >170. GI: Elevated lipase ?pancreatitis CT abdomen and pelvis noncontrast with normal gallbladder, liver, pancreas. Triglyceride level elevated but not contributory, 290. No prior h/o pancreatitis Hepatitis C GERD There is thickening of stomach noted on CT abd/pelvis and may need EGD at some point though could be done as outpatient. Protonix 40 mg IV daily for stress ulcer prophylaxis Moderate protein energy malnutrition FEN/RENAL: ESRD on peritoneal dialysis PD tonight per Dr. Sosa Lactic acidemia ?secondary to poor clearance vs sepsis. Unknown if PD had lactate buffer. Monitor serial lactic acid. ID: ?Peritonitis Abdominal pain, vomiting, diarrhea concerning for peritonitis. Will obtain peritoneal fluid cell count and culture. IP vanc/fortaz per nephrology. Empiric coverage with vancomycin IV given in ED and will cover with Fortaz IV x1 dose until blood cultures resulted. Check C. difficile CT abd/pelvis - noncontrast scan unremarkable. HEME: Chronic anemia Iron panel, B12 Right lower extremity u/s to rule out DVT ENDO: Poorly controlled Diabetes mellitus Lantus 5 units subcut qhs. Medium dose insulin sliding scale q4 hours. Secondary hyperparathyroidism Calcitriol 0.25 mg po daily Calcium acetate 667 mg po tid. Of note, patient was on prednisone 20 bid on admission for unclear reasons, this has been held. Wasn't on it during his admission end of December. PROPH: Heparin 5000 units subcutaneous every 12 hours for DVT prophylaxis. Protonix 40 mg IV daily for stress ulcer prophylaxis. ACCESS: Peripheral IV providing adequate access at this time. Peritoneal dialysis catheter placed 10/15/16 (Dr. Chris) Level 3 H and P Balbina Schofield MD Jan 16, 2017 00:03
[2017-01-16] MEDS ORDERED: INSULIN DETEMIR 100 UNITS/ML VIAL SQ SCH (00:15)
[2017-01-16] MEDS: INSULIN ASPART SUPPLEMENTAL SCALE SQ SCH ×6 (00:47→20:28)
[2017-01-16] MEDS: LABETALOL HCL 100 MG/20 ML VIAL IV PUSH PRN (01:32)
[2017-01-16 02:06] LABS: PERITONEAL LYMPHS 55 %; PERITONEAL MONOS 37 %; PERITONEAL POLYS(SEGS) 8 %; PERITONEAL WBC 120 /MM3 (0-10)
[2017-01-16 03:27] LABS: AUTOMATED NEUTROPHIL # 6.8 TH/MM3 (1.8-7.7); BASOPHIL % 0.3 % (0.0-2.0); EOSINOPHIL % 0.2 % (0.0-4.0); HEMATOCRIT 28.4 % (39.0-51.0); LYMPH % 20.7 % (9.0-44.0); LYMPHOCYTE # 2.1 TH/MM3 (1.0-4.8); MEAN CELL VOLUME 91.7 FL (80.0-100.0); MEAN CORPUSCULAR HEMOGLOBIN 31.1 PG (27.0-34.0); MEAN CORPUSCULAR HGB CONC 33.9 % (32.0-36.0); MONO % 10.3 % (0.0-8.0); NEUT % 68.5 % (16.0-70.0); PLATELET COUNT 165 TH/MM3 (150-450); RED CELL DISTRIBUTION WIDTH 15.8 % (11.6-17.2); WHITE BLOOD COUNT 9.9 TH/MM3 (4.0-11.0)
[2017-01-16 03:29] LABS: HEMO FLAGS AUTO DIFF
[2017-01-16 03:37] LABS: ALT (GPT) 71 U/L (12-78); ANION GAP 14 MEQ/L (5-15); AST (GOT) 50 U/L (15-37); BICARBONATE 23.3 MEQ/L (21.0-32.0); BLOOD UREA NITROGEN 49 MG/DL (7-18); CHLORIDE 108 MEQ/L (98-107); GLOMERULAR FILTRATION RATE 11 ML/MIN (>89); MAGNESIUM 1.8 MG/DL (1.5-2.5); POTASSIUM 3.3 MEQ/L (3.5-5.1); SODIUM (NA) 145 MEQ/L (136-145)
[2017-01-16 03:40] LABS: ALKALINE PHOSPHATASE 404 U/L (45-117); TOTAL BILIRUBIN ADULT 0.7 MG/DL (0.2-1.0)
[2017-01-16] MEDS: CHLORHEXIDINE GLUCONATE 2 % 1 PACK (2 CLOTHS) TOP SCH ×2 (03:44→20:29)
[2017-01-16] MEDS ORDERED: cefTAZidime INJ 1,000 MG in SODIUM CHLORIDE 0.9% INJ 100 ML IV ONE (04:00)
[2017-01-16] MEDS: RESP: ALBUTEROL 2.5 MG/IPRATROPIUM 0.5 MG NEB (SCH) INH ×4 (04:00→20:36)
[2017-01-16 04:09] LABS: SCAN/DIFF AUTO DIFF CONFIRMED
[2017-01-16] MEDS ORDERED: cloNIDine HCL 0.1 MG TAB PO ONE (04:45)
[2017-01-16] MEDS: ONDANSETRON HCL 4 MG/2 ML VIAL IV PRN (04:51)
[2017-01-16 04:55] LABS: BLOOD GAS BASE EXCESS -6.5 mmol/L (-2-2); BLOOD GAS CARBOXYHEMOGLOBIN 1.5 % (0-4); BLOOD GAS HCO3 17 mmol/L (22-26); BLOOD GAS METHEMOGLOBIN 1.4 % (0-2); BLOOD GAS O2 HGB SATURATION 95 % (90-100); BLOOD GAS OXYGEN CONTENT 15.4 Vol % (12.0-20.0); BLOOD GAS PCO2 25 mmHg (38-42); BLOOD GAS PO2 109 mmHg (61-120); BLOOD GAS TOTAL HGB 11.4 G/DL (12.0-16.0); TEMP CORR TO 98.6
[2017-01-16 04:56] LABS: CRITICAL VALUE NO; DRAW SITE RT RADIAL; FIO2 21 %; OXYGEN DEVICE ROOM AIR; STAT YES; ULNAR PULSE PRESENT
[2017-01-16] MEDS ORDERED: MORPHINE SULFATE 4 MG/ML INJ IV PUSH PRN (05:15)
[2017-01-16 06:11] LABS: TRANSFERRIN IRON PROFILE 149 MG/DL (200-360)
[2017-01-16 06:36] LABS: HDL CHOLESTEROL 32.3 MG/DL (40.0-60.0); LDL CHOLESTEROL 37 MG/DL (0-99)
[2017-01-16] MEDS: SODIUM CHLORIDE 0.9% FLUSH 10 ML FLUSH SCH ×2 (07:58→20:23)
[2017-01-16] MEDS: PANTOPRAZOLE SODIUM 40 MG VIAL IV SCH (08:00)
[2017-01-16] MEDS: CALCIUM ACETATE 667 MG CAP PO SCH ×3 (08:01→17:50)
[2017-01-16] MEDS: CALCITRIOL 0.25 MCG CAP PO SCH (08:01)
[2017-01-16] MEDS: cloNIDine HCL 0.3 MG TAB PO SCH ×3 (08:01→17:49)
[2017-01-16] MEDS: HEPARIN SODIUM - SQ 10,000 UNITS/ML VIAL SQ SCH ×2 (08:01→20:26)
[2017-01-16] MEDS: amLODIPine BESYLATE 5 MG TAB PO SCH ×2 (08:01→20:24)
[2017-01-16] MEDS: DOCUSATE SODIUM 50 MG/SENNA 8.6 MG TAB PO SCH ×2 (08:01→20:26)
--- NOTE | 2017-01-16 10:29 | RADRPT ---
EXAM DATE/TIME: 01/16/2017 08:17 [facility] COMPARISON: No previous studies available for comparison. INDICATIONS : Right leg swelling. MEDICAL HISTORY : Arthritis. Hepatitis C. Migraines. Numbness. HTN. Chest pain. COPD. Diabetes. SURGICAL HISTORY : Dialysis. Left knee. ENCOUNTER: Initial ACUITY: 2 months PAIN SCORE: 0/10 LOCATION: Right leg. TECHNIQUE: Venous ultrasound of the leg was performed from the inguinal ligament to the proximal calf. Real-cortney e, color Doppler and spectral tracing, compression and augmentation techniques were used. FINDINGS: There is normal compressibility of the deep venous system from the inguinal region to the proximal ca lf. No echogenic clot is seen in the lumen of the common femoral, femoral, popliteal, and posterior tibial veins. There is a normal response of the venous system to proximal and distal augmentation an d respiration. CONCLUSION: Normal examination. Satinder Khanna Jr., MD on January 16, 2017 at 10:22 Board Certified Radiologist. This report was verified electronically.
--- NOTE | 2017-01-16 10:43 | PD.CONS ---
HPI Service Nephrology Consult Requested By Dr. Schofield Reason for Consult End-stage renal disease Primary Care Physician Unknown History of Present Illness Patient is a 61-year-old black male with history of end-stage renal disease, hypertension, new onset of diabetes he was admitted last time with severe hyperglycemia, he will discharge home and he said he did not know how to take insulin and has not taken insulin admitted him back with some abdominal pain, hyperglycemia and received peritoneal dialysis culture has been pending total WBC count was 120 with only 8% neutrophils Review of Systems Constitutional: COMPLAINS OF: Fatigue Gastrointestinal: COMPLAINS OF: Abdominal pain Psychiatric: COMPLAINS OF: Confusion Past Family Social History Allergies: Coded Allergies: Aspirin (Unverified Allergy, Unknown, 01/15/17) HEP C Past Medical History ESRD Hypertension Diabetes Noncompliance Hepatitis C Past Surgical History Tenckhoff catheter placement Left knee surgery Reported Medications Reported Meds & Active Scripts Active Trueresult Blood Glucose (Device) System Kit 1 Kit .ROUTE DIRECTED Carefine Pen [place] 31G X 6 mm 1 Mis Mis 1 Ea .ROUTE DIRECTED Novolog Flexpen Inj (Insulin Aspart) 300 Unit/3 Ml Pen 1 Units SQ ACHS SLIDING SCALE blood sugar <150 do not give insulin. blood sugar 150-180 give 2 units of insulin before meals. blood sugar 181-200 give 3 units of insulin before meals. blood sugar 201 and above give 4 units of insulin before meals. Lantus Solostar Pen Inj (Insulin Glargine) 300 Unit/3 Ml Pen 5 Units SQ DAILY Calcium Acetate (Calcium Acetate (Phosphate Bin) 667 Mg Cap 667 Mg PO TID Norvasc (Amlodipine Besylate) 5 Mg Tab 5 Mg PO BID Reported Prednisone 20 Mg Tab 20 Mg PO BID Calcitriol 0.25 Mcg Cap 0.25 Mcg PO DAILY Ranitidine (Ranitidine HCl) 150 Mg Cap 150 Mg PO BID Clonidine (Clonidine HCl) 0.3 Mg Tab 0.3 Mg PO TID Active Ordered Medications Current Medications Medications (Trade) Dose Ordered Sig/Issac Route Start Time Stop Time Status Last Admin (NS Flush) 10 ml UNSCH PRN IV FLUSH 01/15/17 22:30 (Vancomycin Inj) 2,000 mg Q7D IP 01/15/17 22:30 01/15/17 23:34 (Fortaz Inj) 1,000 mg DAILY IP 6/9/17 09:00 01/16/17 08:03 (NS Flush) 2 ml UNSCH PRN .XX 01/15/17 23:30 (NS Flush) 2 ml BID .XX 01/16/17 09:00 01/16/17 07:58 (Tylenol) 650 mg Q6H PRN PO 01/15/17 23:30 (Protonix Inj) 40 mg DAILY IV 01/16/17 09:00 01/16/17 08:00 (Zofran Inj) 4 mg Q6H PRN IV 01/15/17 23:30 01/16/17 04:51 Miscellaneous Information 1 Q361D XX 01/15/17 23:30 01/15/17 23:30 (Chlorhexidine 2% Cloth) 3 pack Taper DAILY@04 TOP 01/16/17 04:00 01/12/18 03:59 01/16/17 03:44 (Chlorhexidine 2% Cloth) 3 pack UNSCH PRN TOP 01/15/17 23:30 (Jessica-Colace) 1 tab BID PO 01/16/17 09:00 (Milk Of Magnesia Liq) 30 ml Q12H PRN PO 01/15/17 23:30 (Senokot) 17.2 mg Q12H PRN PO 01/15/17 23:30 (Dulcolax Supp) 10 mg DAILY PRN RECTAL 01/15/17 23:30 (Lactulose Liq) 30 ml DAILY PRN PO 01/15/17 23:30 (D50w (Vial) Inj) 50 ml UNSCH PRN IV 01/15/17 23:45 (Glucagon Inj) 1 mg UNSCH PRN OTHER 01/15/17 23:45 (NovoLOG SUPPLEMENTAL SCALE) 1 Q4H SQ 01/15/17 23:45 01/16/17 00:47 (Norvasc) 5 mg BID PO 01/16/17 09:00 (Rocaltrol) 0.25 mcg DAILY PO 01/16/17 09:00 (Phoslo) 667 mg TID PO 01/16/17 09:00 (Catapres) 0.3 mg TID PO 01/16/17 09:00 (Trandate Inj) 10 mg Q4H PRN IV PUSH 01/16/17 00:15 01/16/17 01:32 (Heparin Inj) 5,000 units Q12HR SQ 01/16/17 09:00 01/16/17 08:01 ([place] 5-325 Mg) 1 tab Q6H PRN PO 01/16/17 05:15 (Morphine Inj) 2 mg Q3H PRN IV PUSH 01/16/17 05:15 Family History Noncontributory Social History He denies smoking or alcohol use Physical Exam Vital Signs Vital Signs Date Time Temp Pulse Resp B/P Pulse Ox O2 Delivery O2 Flow Rate FiO2 01/16/17 09:55 100 21 01/16/17 04:48 100 21 01/16/17 04:00 98.8 108 37 183/95 100 01/16/17 04:00 108 01/16/17 02:00 101 01/16/17 00:26 108 01/16/17 00:23 98.0 117 24 173/96 100 01/15/17 23:53 99.3 113 17 168/100 99 01/15/17 22:00 110 18 170/100 99 Room Air 01/15/17 21:02 99 Room Air 01/15/17 20:56 99.3 116 20 184/92 98 Physical Exam GENERAL: Well-nourished, well-developed patient. SKIN: Warm and dry. HEAD: Normocephalic. EYES: No scleral icterus. No injection or drainage. NECK: Supple, trachea midline. No JVD or lymphadenopathy. CARDIOVASCULAR: Regular rate and rhythm without murmurs, gallops, or rubs. RESPIRATORY: Breath sounds equal bilaterally. No accessory muscle use. GASTROINTESTINAL: Abdomen soft, non-tender, nondistended. Peritoneal dialysis catheter in place EXTREMITIES: No cyanosis, or edema. NEUROLOGICAL: Awake, alert, and oriented x 3. Non-focal. Laboratory Laboratory Tests Test 01/15/17 01/15/17 01/15/17 01/15/17 20:57 21:00 21:15 21:50 Blood Gas Puncture Site RT BRACHIAL Blood Gas Patient Temperature 98.6 Blood Gas HCO3 17 Blood Gas Base Excess -3.5 Blood Gas Oxygen Saturation 92 Arterial Blood pH 7.67 Arterial Blood Partial 15 Pressure CO2 Arterial Blood Partial 55 Pressure O2 Arterial Blood Oxygen Content 11.0 Arterial Blood 0.7 Carboxyhemoglobin Arterial Blood Methemoglobin 0.3 Blood Gas Hemoglobin 8.5 Oxygen Delivery Device ROOMAIR Blood Gas Inspired Oxygen 21 Prothrombin Time 11.2 Prothromb Time International 1.0 Ratio Activated Partial 23.4 Thromboplast Time Lactic Acid Level 4.1 White Blood Count 8.1 Red Blood Count 2.83 Hemoglobin 8.8 Hematocrit 26.8 Mean Corpuscular Volume 94.6 Mean Corpuscular Hemoglobin 31.2 Mean Corpuscular Hemoglobin 32.9 Concent Red Cell Distribution Width 15.8 Platelet Count 156 Mean Platelet Volume 9.7 Neutrophils (%) (Auto) 68.9 Lymphocytes (%) (Auto) 18.3 Monocytes (%) (Auto) 12.0 Eosinophils (%) (Auto) 0.2 Basophils (%) (Auto) 0.6 Neutrophils # (Auto) 5.6 Lymphocytes # (Auto) 1.5 Monocytes # (Auto) 1.0 Eosinophils # (Auto) 0.0 Basophils # (Auto) 0.1 CBC Comment DIFF FINAL Differential Comment Sodium Level 130 Potassium Level 4.2 Chloride Level 94 Carbon Dioxide Level 19.4 Anion Gap 17 Blood Urea Nitrogen 54 Creatinine 6.99 Estimat Glomerular Filtration 10 Rate Random Glucose 760 Calcium Level 7.5 Phosphorus Level 3.6 Magnesium Level 1.9 Total Bilirubin 0.5 Aspartate Amino Transf 60 (AST/SGOT) Alanine Aminotransferase 73 (ALT/SGPT) Alkaline Phosphatase 415 Total Protein 5.1 Albumin 2.1 Triglycerides Level 290 Lipase 2005 B-Hydroxybutyrate 0.51 Ammonia 59 Urine Color LIGHT-YELLOW Urine Turbidity CLEAR Urine pH 7.0 Urine Specific [place] 1.013 Urine Protein 30 Urine Glucose (UA) 1000 Urine Ketones NEG Urine Occult Blood TRACE Urine Nitrite NEG Urine Bilirubin NEG Urine Urobilinogen LESS THAN 2.0 Urine Leukocyte Esterase NEG Urine RBC LESS THAN 1 Urine WBC 1 Microscopic Urinalysis Comment CULT NOT INDICATED Test 01/15/17 01/16/17 01/16/17 01/16/17 23:59 00:30 03:06 04:44 Nasal Screen MRSA (PCR) MRSA NOT DETECTED Peritoneal Fluid WBC 120 Peritoneal Fluid RBC 28 Peritoneal Fluid Neutrophils 8 Peritoneal Fluid Lymphocytes 55 Peritoneal Fluid Monocytes 37 White Blood Count 9.9 Red Blood Count 3.10 Hemoglobin 9.6 Hematocrit 28.4 Mean Corpuscular Volume 91.7 Mean Corpuscular Hemoglobin 31.1 Mean Corpuscular Hemoglobin 33.9 Concent Red Cell Distribution Width 15.8 Platelet Count 165 Mean Platelet Volume 8.7 Neutrophils (%) (Auto) 68.5 Lymphocytes (%) (Auto) 20.7 Monocytes (%) (Auto) 10.3 Eosinophils (%) (Auto) 0.2 Basophils (%) (Auto) 0.3 Neutrophils # (Auto) 6.8 Lymphocytes # (Auto) 2.1 Monocytes # (Auto) 1.0 Eosinophils # (Auto) 0.0 Basophils # (Auto) 0.0 CBC Comment AUTO DIFF Differential Comment AUTO DIFF CONFIRMED Sodium Level 145 Potassium Level 3.3 Chloride Level 108 Carbon Dioxide Level 23.3 Anion Gap 14 Blood Urea Nitrogen 49 Creatinine 6.21 Estimat Glomerular Filtration 11 Rate Random Glucose 143 Lactic Acid Level 4.5 Calcium Level 7.9 Phosphorus Level 3.3 Magnesium Level 1.8 Iron Level 44 Total Iron Binding Capacity 209 Percent Iron Saturation 21.1 Total Bilirubin 0.7 Aspartate Amino Transf 50 (AST/SGOT) Alanine Aminotransferase 71 (ALT/SGPT) Alkaline Phosphatase 404 Total Protein 5.6 Albumin 2.2 Triglycerides Level 223 Cholesterol Level 114 LDL Cholesterol 37 HDL Cholesterol 32.3 Cholesterol/HDL Ratio 3.52 Lipase 1295 Vitamin B12 Level 1172 Blood Gas Puncture Site RT RADIAL Blood Gas Patient Temperature 98.6 Blood Gas HCO3 17 Blood Gas Base Excess -6.5 Blood Gas Oxygen Saturation 95 Arterial Blood pH 7.44 Arterial Blood Partial 25 Pressure CO2 Arterial Blood Partial 109 Pressure O2 Arterial Blood Oxygen Content 15.4 Arterial Blood 1.5 Carboxyhemoglobin Arterial Blood Methemoglobin 1.4 Blood Gas Hemoglobin 11.4 Oxygen Delivery Device ROOM AIR Blood Gas Inspired Oxygen 21 Test 01/16/17 05:40 Salicylates Level LESS THAN 1.7 Date/Time Procedure Status Source Growth 01/16/17 00:30 Gram Stain - Final Resulted Fluid Peritoneal Fluid 01/16/17 00:30 Body Fluid Culture Resulted Fluid Peritoneal Fluid Pending 01/15/17 21:00 Aerobic Blood Culture Received Blood Peripheral Pending 01/15/17 21:00 Anaerobic Blood Culture Received Blood Peripheral Pending Result Diagram: 01/16/17 0306 01/16/176 Imaging Last Impressions Chest X-Ray 01/15/172056 Signed Impressions: Service Date/Time: January 21:26 - CONCLUSION: No acute disease. Juan Ramirez MD Abdomen/Pelvis CT 01/15/17 0000 Signed Impressions: Service Date/Time: January 22:54 - CONCLUSION: 1. Patient is on peritoneal dialysis. There is small moderate ascites, increased from before. No loculated fluid. 2. Decreased gastric wall thickening, now mild. Nasogastric tube has been removed. 3. No obstruction or perceptible acute inflammatory changes seen of the gastrointestinal tract. Juan Mercado MD Assessment and Plan Problem List: (1) ESRD (end stage renal disease) Plan: Patient is on peritoneal dialysis, his fluid lack of evidence for active peritonitis based on the cell studies cultures are pending I will stop the intraperitoneal antibiotics Continue to monitor he is noncompliant he has learned the technique of using the insulin he has not given himself any insulin since last discharge which led to hyperglycemic state Once again (2) Lactic acidosis Plan: Resolving (3) HTN (hypertension) Plan: Continue to monitor (4) Diabetic hyperosmolar non-ketotic state Plan: Blood sugar is better with insulin (5) Increased serum lipase level Plan: levels decrease unknown etiology restart diet Problem Qualifiers (1) HTN (hypertension): Qualified Code: I10 - Essential hypertension Ned Sosa MD Jan 16, 2017 10:43
[2017-01-16] MEDS: POTASSIUM CHLORIDE 20 MEQ CONTROLLED RELEASE TAB PO SCH ×2 (12:04→20:24)
[2017-01-16 12:16] LABS: BLOOD GAS BASE EXCESS -2.6 mmol/L (-2-2); BLOOD GAS CARBOXYHEMOGLOBIN 1.8 % (0-4); BLOOD GAS HCO3 20 mmol/L (22-26); BLOOD GAS METHEMOGLOBIN 1.4 % (0-2); BLOOD GAS O2 HGB SATURATION 95 % (90-100); BLOOD GAS OXYGEN CONTENT 12.2 Vol % (12.0-20.0); BLOOD GAS PCO2 28 mmHg (38-42); BLOOD GAS PO2 93 mmHg (61-120); BLOOD GAS TOTAL HGB 9.1 G/DL (12.0-16.0); CRITICAL VALUE NO; DRAW SITE RT RADIAL; FIO2 21 %; NUMBER OF ARTERIAL PUNCTURES 1; OXYGEN DEVICE ROOM AIR; STAT NO; TEMP CORR TO 98.6
[2017-01-16 13:23] LABS: BICARBONATE 24.3 MEQ/L (21.0-32.0); POTASSIUM 3.6 MEQ/L (3.5-5.1)
--- NOTE | 2017-01-16 16:07 | RADRPT ---
EXAM DATE/TIME: 01/16/2017 15:38 [place] COMPARISON: No previous studies available for comparison. INDICATIONS : Short of breath for 1 day. DOSE: 8.7 mCi Tc99m MAA IV 0.96 mCi Tc99m DTPA aerosol MEDICAL HISTORY : Diabetes mellitus type 2. Chronic obstructive pulmonary disease. Renal disease, end stage. SURGICAL HISTORY : Left knee surgery. ENCOUNTER: Initial ACUITY: 1 day PAIN SCALE: 1/10 LOCATION: Bilateral chest TECHNIQUE: Following five minutes of tidal breathing of DTPA aerosol, planar images of the lungs were performed in eight projections. The patient was then injected with MAA, and eight-view perfusio n scan was performed. FINDINGS: There is a homogeneous pattern of aerosol delivery to the periphery of both lungs. No focal ventilat ory defects are seen. The perfusion lung scan demonstrates a homogenous pattern of uptake in both lungs. No segmental or s ubsegmental defects are seen. CONCLUSION: Low probability for pulmonary embolism. Edgardo Goldstein MD FACR on January 16, 2017 at 16:05 Board Certified Radiologist. This report was verified electronically.
--- NOTE | 2017-01-16 17:40 | EKG ---
Date Performed: 01/15/2017 Time Performed: 21:10:22 PTAGE: 61 years EKG: SINUS TACHYCARDIA POSSIBLE LEFT ATRIAL ENLARGEMENT NONSPECIFIC T-WAVE ABNORMALITY ABNORMAL RHYTHM ECG PREVIOUS TRACING : 01/02/2017 14.47 Compared to prior tracing no significant change DOCTOR: Blanca Mathews Interpretating Date/Time 01/16/2017 17:39:41
--- NOTE | 2017-01-16 17:46 | HHI.PR ---
Subjective Remarks Patient seen and examined this afternoon after being admitted early this morning. Patient is now s/p peritoneal dialysis. patient's lactate is clearing. Patient is persistently low-grade tachycardic, with HR low 100s. D-dimer is weakly positive, but VQ scan is low probability for PE. Repeat ABG has much improving respiratory alkalosis. subjectively, patient's shortness of breath has essentially completely resolved. Updated Plan: -- advance diet -- continue sliding scale insulin -- will not anticoagulate, likely not a pulmonary embolism. -- diabetic education -- unclear etiology of tachycardia, ?dehydration vs. sepsis, but unclear source- - ?peritonitis? -- continue to follow up abdominal cultures. -- continue empiric abx. At this point, I think it is safe for the patient to be transferred out of ICU. We will consult hospitalist service. Hunter Toscano MD Jan 16, 2017 17:46
[2017-01-16] MEDS: ACETAMINOPHEN 325 MG TAB PO PRN (20:26)
[2017-01-17] VITALS (20 sets, daily range): BP systolic 112–138; BP diastolic 67–90; PULSE 76–112; RESP 16–27; TEMP 98.5–101.1; O2SAT 99–100
[2017-01-17] MEDS: INSULIN ASPART SUPPLEMENTAL SCALE SQ SCH ×7 (00:25→23:03)
[2017-01-17] MEDS: RESP: ALBUTEROL 2.5 MG/IPRATROPIUM 0.5 MG NEB (SCH) INH ×4 (03:26→20:43)
[2017-01-17 04:31] LABS: AUTOMATED NEUTROPHIL # 6.1 TH/MM3 (1.8-7.7); BASOPHIL # 0.1 TH/MM3 (0-0.2); BASOPHIL % 0.5 % (0.0-2.0); EOSINOPHIL % 0.3 % (0.0-4.0); HEMATOCRIT 26.3 % (39.0-51.0); LYMPH % 23.2 % (9.0-44.0); LYMPHOCYTE # 2.2 TH/MM3 (1.0-4.8); MEAN CELL VOLUME 92.3 FL (80.0-100.0); MEAN CORPUSCULAR HEMOGLOBIN 30.6 PG (27.0-34.0); MEAN CORPUSCULAR HGB CONC 33.1 % (32.0-36.0); MONO % 11.3 % (0.0-8.0); NEUT % 64.7 % (16.0-70.0); PLATELET COUNT 132 TH/MM3 (150-450); RED BLOOD COUNT 2.85 MIL/MM3 (4.50-5.90); RED CELL DISTRIBUTION WIDTH 15.7 % (11.6-17.2); WHITE BLOOD COUNT 9.4 TH/MM3 (4.0-11.0)
[2017-01-17 04:35] LABS: HEMO FLAGS AUTO DIFF
[2017-01-17 04:52] LABS: BICARBONATE 26.7 MEQ/L (21.0-32.0); POTASSIUM 4.1 MEQ/L (3.5-5.1)
[2017-01-17] MEDS: DOCUSATE SODIUM 50 MG/SENNA 8.6 MG TAB PO SCH ×2 (09:00→20:31)
[2017-01-17 09:03] LABS: BANDS 8 % (0-6); BASOPHILS 1 % (0-2); MYELOCYTES 1 % (0-0); NEUTROPHIL # MANUAL DIFF 5.3 TH/MM3 (1.8-7.7); POLYS (SEG NEUTROPHILS) 47 % (16-70); WBC DIFF SAMPLE 100
[2017-01-17 09:04] LABS: PLATELET ESTIMATE SMEAR LOW (NORMAL); PLATELET MORPHOLOGY NORMAL (NORMAL); SCAN/DIFF FINAL DIFF MANUAL
[2017-01-17] MEDS: CALCIUM ACETATE 667 MG CAP PO SCH ×3 (09:05→17:46)
[2017-01-17] MEDS: HEPARIN SODIUM - SQ 10,000 UNITS/ML VIAL SQ SCH ×2 (09:05→20:33)
[2017-01-17] MEDS: POTASSIUM CHLORIDE 20 MEQ CONTROLLED RELEASE TAB PO SCH ×2 (09:05→20:32)
[2017-01-17] MEDS: CALCITRIOL 0.25 MCG CAP PO SCH (09:06)
[2017-01-17] MEDS: cloNIDine HCL 0.3 MG TAB PO SCH ×3 (09:06→17:46)
[2017-01-17] MEDS: PANTOPRAZOLE SODIUM 40 MG VIAL IV SCH (09:06)
[2017-01-17] MEDS: amLODIPine BESYLATE 5 MG TAB PO SCH ×2 (09:06→20:31)
[2017-01-17] MEDS: SODIUM CHLORIDE 0.9% FLUSH 10 ML FLUSH SCH ×2 (09:07→20:32)
--- NOTE | 2017-01-17 11:44 | HHI.NPPN ---
Subjective History of Present Illness 61-year-old black male with history of end-stage renal disease, hypertension, new onset of diabetes he was admitted last time with severe hyperglycemia, he was discharge home and he said he did not know how to take insulin and has not taken insulin him back with some abdominal pain, hyperglycemia and received peritoneal dialysis culture has been pending total WBC count was 120 with only 8 % neutrophils. Additional Remarks Patient is alert, no abd. pain, feeling better, no SOB. Review of Systems General Constitutional: Fatigue Cardiovascular Cardiac: AGUILAR Objective Data Data 01/16/17 01/17/17 19:00 07:00 Intake Total 200 ml 480 ml Output Total 1423 ml 180 ml Balance -1223 ml 300 ml Intake Oral 200 ml 480 ml Output Urine Total 150 ml 180 ml Peritoneal Fluid 1273 ml # Bowel Movements 1 0 Vital Signs Date Time Temp Pulse Resp B/P Pulse Ox O2 Delivery O2 Flow Rate FiO2 01/17/17 10:00 76 01/17/17 08:00 98.5 112 27 131/79 100 01/17/17 08:00 76 01/17/17 07:40 100 01/17/17 06:00 104 01/17/17 06:00 104 19 127/75 100 01/17/17 05:01 100 21 133/80 100 01/17/17 05:01 100 01/17/17 05:00 98 22 99 01/17/17 05:00 98 01/17/17 04:00 99.0 99 22 127/81 100 01/17/17 04:00 99 01/17/17 03:00 95 21 123/79 100 01/17/17 03:00 95 01/17/17 02:00 93 21 118/90 100 01/17/17 02:00 93 01/17/17 01:01 96 01/17/17 01:01 96 17 119/82 100 01/17/17 01:00 95 01/17/17 01:00 95 25 100 01/17/17 00:04 101 17 116/78 100 01/17/17 00:04 101 01/17/17 00:00 101 01/17/17 00:00 99.0 101 16 100 01/16/17 23:00 108 27 121/87 98 01/16/17 23:00 108 01/16/17 22:00 109 25 124/87 100 01/16/17 22:00 109 01/16/17 21:57 19 01/16/17 21:00 109 24 121/85 99 01/16/17 21:00 109 01/16/17 20:36 100 21 01/16/17 20:00 100.6 98 21 135/90 100 01/16/17 20:00 98 01/16/17 19:54 99 27 128/87 100 01/16/17 19:54 99 01/16/17 19:00 101 01/16/17 19:00 101 24 104/74 99 01/16/17 18:30 101 25 114/77 99 01/16/17 18:00 109 24 133/89 100 01/16/17 18:00 109 01/16/17 17:30 111 23 124/76 100 01/16/17 17:00 115 24 118/75 100 01/16/17 16:00 100.9 101 19 121/78 99 01/16/17 16:00 101 01/16/17 14:00 105 01/16/17 12:00 115 01/16/17 12:00 99.9 115 23 149/88 100 -: 01/17/17 0413 01/17/17 0413 Physical Exam General Appearance: Well Nourished, No Acute Distress, Comfortable Eyes Eye Exam: Pupils Equal Throat Throat Exam: Oral Mucosa [place] & Moist Neck Neck Exam: Neck Supple Pulmonary Resp Exam: Breath Sounds Equal, No Distress, Decreased Bases Cardiology CV Exam: Regular, Normal Sinus Rhythm Gastrointestinal/Abdomen GI Exam: Soft, Non-Tender, Bowel Sounds Present, Distended (with PD catheter in place.) Extremeties Extremities Exam: Trace Edema Neurologic Neuro Exam: Alert, Awake, Oriented Psychiatric Psych Exam: Appropriate Responses Assessment/Plan Problem List: (1) ESRD (end stage renal disease) Plan: Patient is on peritoneal dialysis in the days lack of evidence for active peritonitis based on the cell studies cultures are pending. Continue to monitor he is noncompliant he has learned the technique of using the insulin he has not given himself any insulin since last discharge which led to hyperglycemic state Once again. BS is improving. (2) Lactic acidosis Plan: Resolved (3) HTN (hypertension) Plan: Continue to monitor (4) Diabetic hyperosmolar non-ketotic state Plan: Blood sugar is better with insulin (5) Increased serum lipase level Plan: levels decrease unknown etiology restart diet Problem Qualifiers (1) HTN (hypertension): Qualified Code: I10 - Essential hypertension Singh Villela MD Jan 17, 2017 11:44
--- NOTE | 2017-01-17 13:28 | HHI.PR ---
Subjective Remarks Patient laying in bed he denied complain no chest pain or short of breath or fever or chills heart his heart rate still tachycardic Objective Vitals Vital Signs Date Time Temp Pulse Resp B/P Pulse Ox O2 Delivery O2 Flow Rate FiO2 01/17/17 10:00 76 01/17/17 08:00 98.5 112 27 131/79 100 01/17/17 08:00 76 01/17/17 07:40 100 01/17/17 06:00 104 01/17/17 06:00 104 19 127/75 100 01/17/17 05:01 100 21 133/80 100 01/17/17 05:01 100 01/17/17 05:00 98 22 99 01/17/17 05:00 98 01/17/17 04:00 99.0 99 22 127/81 100 01/17/17 04:00 99 01/17/17 03:00 95 21 123/79 100 01/17/17 03:00 95 01/17/17 02:00 93 21 118/90 100 01/17/17 02:00 93 01/17/17 01:01 96 01/17/17 01:01 96 17 119/82 100 01/17/17 01:00 95 01/17/17 01:00 95 25 100 01/17/17 00:04 101 17 116/78 100 01/17/17 00:04 101 01/17/17 00:00 101 01/17/17 00:00 99.0 101 16 100 01/16/17 23:00 108 27 121/87 98 01/16/17 23:00 108 01/16/17 22:00 109 25 124/87 100 01/16/17 22:00 109 01/16/17 21:57 19 01/16/17 21:00 109 24 121/85 99 01/16/17 21:00 109 01/16/17 20:36 100 21 01/16/17 20:00 100.6 98 21 135/90 100 01/16/17 20:00 98 01/16/17 19:54 99 27 128/87 100 01/16/17 19:54 99 01/16/17 19:00 101 01/16/17 19:00 101 24 104/74 99 01/16/17 18:30 101 25 114/77 99 01/16/17 18:00 109 24 133/89 100 01/16/17 18:00 109 01/16/17 17:30 111 23 124/76 100 01/16/17 17:00 115 24 118/75 100 01/16/17 16:00 100.9 101 19 121/78 99 01/16/17 16:00 101 01/16/17 14:00 105 I/O 01/16/17 01/16/17 01/16/17 01/17/17 01/17/17 01/17/17 07:00 15:00 23:00 07:00 15:00 23:00 Intake Total 100 ml 200 ml 240 ml 240 ml Output Total 300 ml 1423 ml 0 ml 180 ml Balance -200 ml -1223 ml 240 ml 60 ml Intake Oral 25 ml 200 ml 240 ml 240 ml IV Total 75 ml Output Urine Total 300 ml 150 ml 0 ml 180 ml Peritoneal Fluid 1273 ml # Bowel Movements 1 1 0 0 Result Diagram: 01/17/1741201/17/17412 Objective Remarks - - GENERAL: This is a well-nourished, well-developed patient, in no apparent distress. SKIN: No rashes, warm and dry HEAD: Atraumatic. Normocephalic. EYES: Pupils equal round and reactive. Extraocular motions intact. No scleral icterus. ENT: Nose without bleeding, or drainage, Airway patent. NECK: Trachea midline. Supple CARDIOVASCULAR: Tachycardia rhythm without murmurs, gallops, or rubs. RESPIRATORY: Fair air entry bilaterally. No wheezes, rales, or rhonchi. GASTROINTESTINAL: Abdomen soft, non-tender, nondistended. Positive bowel sounds MUSCULOSKELETAL: Extremities without clubbing, cyanosis, +1 edema. Pedal pulses appreciated NEUROLOGICAL: Awake and alert. Moves all extremity. Normal speech.no focal neurological deficit A/P Assessment and Plan 01/17: Respiratory alkalosis with metabolic acidosis resolved, lipase dropped to 532, lactic acid dropped to 2.6, continue monitoring repeat lab in a.m. continue current treatment A/P: Hyperammonemia elevated ammonia level, unclear clinical significance, followup. Lortab as needed for pain. Morphine as needed for breakthrough pain Acute respiratory alkalosis COPD Tobacco abuse Pt was previously on prednisone, unclear if secondary to COPD? Pt uncertain. Will hold for now in view of hyperglycemia Duoneb q6 hours. Albuterol q2 hours prn. Unclear why patient had acute respiratory alkalosis on arrival and uncertain if blood gas is arterial sample though noted PaO2 of 55. ?pain/anxiety. Sats are currently 99% on RA. PE is a consideration given respiratory alkalosis and tachycardia, but patient has no symptoms of SOB/CP/hemoptysis and does have wheezing on exam. Will do RLE u/s for his pedal edema and initiate anticoagulation if appropriate. If negative u/s will consider d-dimer and then VQ scan if positive ddimer. Doubt salicylate (ASA allergy), but level pending. Hypertension Hypertriglyceridemia Triglyceride 290, Check remainder of lipid panel. Continue clonidine 0.3 g by mouth 3 times a day, Norvasc 5 mg by mouth twice a day Labetalol prn SBP >170. Elevated lipase ?pancreatitis CT abdomen and pelvis noncontrast with normal gallbladder, liver, pancreas. Triglyceride level elevated but not contributory, 290. No prior h/o pancreatitis Hepatitis C GERD There is thickening of stomach noted on CT abd/pelvis and may need EGD at some point though could be done as outpatient. Protonix 40 mg IV daily for stress ulcer prophylaxis Moderate protein energy malnutrition ESRD on peritoneal dialysis PD tonight per Dr. Sosa Lactic acidemia ?secondary to poor clearance vs sepsis. Unknown if PD had lactate buffer. Monitor serial lactic acid. ?Peritonitis Abdominal pain, vomiting, diarrhea concerning for peritonitis. Will obtain peritoneal fluid cell count and culture. IP vanc/fortaz per nephrology. Empiric coverage with vancomycin IV given in ED and will cover with Fortaz IV x1 dose until blood cultures resulted. Check C. difficile CT abd/pelvis - noncontrast scan unremarkable. Chronic anemia Iron panel, B12 Right lower extremity u/s to rule out DVT Poorly controlled Diabetes mellitus Lantus 5 units subcut qhs. Medium dose insulin sliding scale q4 hours. Secondary hyperparathyroidism Calcitriol 0.25 mg po daily Calcium acetate 667 mg po tid. Of note, patient was on prednisone 20 bid on admission for unclear reasons, this has been held. Wasn't on it during his admission end of December. Panchito Kamara MD Jan 17, 2017 13:28
[2017-01-18] VITALS (12 sets, daily range): BP systolic 97–112; BP diastolic 56–72; PULSE 89–105; RESP 18–25; TEMP 98.4–100.3; O2SAT 97–100
[2017-01-18] MEDS: RESP: ALBUTEROL 2.5 MG/IPRATROPIUM 0.5 MG NEB (SCH) INH ×4 (03:19→21:02)
[2017-01-18] MEDS: INSULIN ASPART SUPPLEMENTAL SCALE SQ SCH ×5 (03:45→20:29)
[2017-01-18] MEDS: CHLORHEXIDINE GLUCONATE 2 % 1 PACK (2 CLOTHS) TOP SCH (04:00)
[2017-01-18 06:35] LABS: MEAN CELL VOLUME 92.2 FL (80.0-100.0); MEAN CORPUSCULAR HEMOGLOBIN 31.2 PG (27.0-34.0); MEAN CORPUSCULAR HGB CONC 33.9 % (32.0-36.0); PLATELET COUNT 138 TH/MM3 (150-450); RED BLOOD COUNT 2.72 MIL/MM3 (4.50-5.90); RED CELL DISTRIBUTION WIDTH 15.6 % (11.6-17.2); REVIEW FLAG FINAL; WHITE BLOOD COUNT 8.5 TH/MM3 (4.0-11.0)
[2017-01-18 06:59] LABS: BICARBONATE 21.5 MEQ/L (21.0-32.0); POTASSIUM 4.7 MEQ/L (3.5-5.1)
[2017-01-18] MEDS: CALCITRIOL 0.25 MCG CAP PO SCH (07:59)
[2017-01-18] MEDS: CALCIUM ACETATE 667 MG CAP PO SCH ×3 (07:59→16:58)
[2017-01-18] MEDS: HEPARIN SODIUM - SQ 10,000 UNITS/ML VIAL SQ SCH ×2 (08:00→20:07)
[2017-01-18] MEDS: POTASSIUM CHLORIDE 20 MEQ CONTROLLED RELEASE TAB PO SCH ×2 (08:00→20:06)
[2017-01-18] MEDS: PANTOPRAZOLE SODIUM 40 MG VIAL IV SCH (08:00)
[2017-01-18] MEDS: amLODIPine BESYLATE 5 MG TAB PO SCH ×2 (08:00→20:06)
[2017-01-18] MEDS: cloNIDine HCL 0.3 MG TAB PO SCH ×3 (08:00→16:55)
[2017-01-18] MEDS: SODIUM CHLORIDE 0.9% FLUSH 10 ML FLUSH SCH ×2 (08:00→20:08)
[2017-01-18] MEDS: DOCUSATE SODIUM 50 MG/SENNA 8.6 MG TAB PO SCH ×2 (09:00→20:07)
--- NOTE | 2017-01-18 11:31 | HHI.PR ---
Subjective Remarks Doing well no acute issue denied chest pain or short of breath fever or chills Objective Vitals Vital Signs Date Time Temp Pulse Resp B/P Pulse Ox O2 Delivery O2 Flow Rate FiO2 01/18/17 10:00 97 01/18/17 08:00 99.8 105 18 109/71 99 01/18/17 08:00 97 01/18/17 07:39 97 01/18/17 06:00 97 01/18/17 04:00 98.6 94 22 112/71 100 01/18/17 04:00 94 01/18/17 02:00 96 01/18/17 00:00 98.9 99 20 98/72 100 01/18/17 00:00 99 01/17/17 22:00 104 01/17/17 20:43 100 21 01/17/17 20:00 76 01/17/17 20:00 99.3 95 20 112/68 99 01/17/17 18:00 76 01/17/17 16:00 101.1 91 21 115/78 100 01/17/17 16:00 76 01/17/17 14:00 76 01/17/17 12:00 100.1 96 24 138/67 100 01/17/17 12:00 76 I/O 01/17/17 01/17/17 01/17/17 01/18/17 01/18/17 01/18/17 07:00 15:00 23:00 07:00 15:00 23:00 Intake Total 240 ml 480 ml 200 ml 200 ml Output Total 180 ml 1334 ml 450 ml 926 ml Balance 60 ml -854 ml 200 ml -250 ml -926 ml Intake Oral 240 ml 200 ml 200 ml IV Total 480 ml Output Urine Total 180 ml 350 ml 450 ml Peritoneal Fluid 984 ml 926 ml # Voids 0 # Bowel Movements 0 0 0 Result Diagram: 01/18/1761401/18/17614 Objective Remarks - - GENERAL: This is a well-nourished, well-developed patient, in no apparent distress. SKIN: No rashes, warm and dry HEAD: Atraumatic. Normocephalic. EYES: Pupils equal round and reactive. Extraocular motions intact. No scleral icterus. ENT: Nose without bleeding, or drainage, Airway patent. NECK: Trachea midline. Supple CARDIOVASCULAR: Tachycardia rhythm without murmurs, gallops, or rubs. RESPIRATORY: Fair air entry bilaterally. No wheezes, rales, or rhonchi. GASTROINTESTINAL: Abdomen soft, non-tender, nondistended. Positive bowel sounds MUSCULOSKELETAL: Extremities without clubbing, cyanosis, +1 edema. Pedal pulses appreciated NEUROLOGICAL: Awake and alert. Moves all extremity. Normal speech.no focal neurological deficit A/P Assessment and Plan 01/17: Respiratory alkalosis with metabolic acidosis resolved, lipase dropped to 532, lactic acid dropped to 2.6, continue monitoring repeat lab in a.m. continue current treatment 01/18: Stable lactic acid 2.5, peritoneal fluid no peritonitis, renal following, continue current care A/P: Hyperammonemia elevated ammonia level, unclear clinical significance, followup. Lortab as needed for pain. Morphine as needed for breakthrough pain Acute respiratory alkalosis COPD Tobacco abuse Pt was previously on prednisone, unclear if secondary to COPD? Pt uncertain. Will hold for now in view of hyperglycemia Duoneb q6 hours. Albuterol q2 hours prn. Unclear why patient had acute respiratory alkalosis on arrival and uncertain if blood gas is arterial sample though noted PaO2 of 55. ?pain/anxiety. Sats are currently 99% on RA. PE is a consideration given respiratory alkalosis and tachycardia, but patient has no symptoms of SOB/CP/hemoptysis and does have wheezing on exam. Will do RLE u/s for his pedal edema and initiate anticoagulation if appropriate. If negative u/s will consider d-dimer and then VQ scan if positive ddimer. Doubt salicylate (ASA allergy), but level pending. Hypertension Hypertriglyceridemia Triglyceride 290, Check remainder of lipid panel. Continue clonidine 0.3 g by mouth 3 times a day, Norvasc 5 mg by mouth twice a day Labetalol prn SBP >170. Elevated lipase ?pancreatitis CT abdomen and pelvis noncontrast with normal gallbladder, liver, pancreas. Triglyceride level elevated but not contributory, 290. No prior h/o pancreatitis Hepatitis C GERD There is thickening of stomach noted on CT abd/pelvis and may need EGD at some point though could be done as outpatient. Protonix 40 mg IV daily for stress ulcer prophylaxis Moderate protein energy malnutrition ESRD on peritoneal dialysis PD tonight per Dr. Sosa Lactic acidemia ?secondary to poor clearance vs sepsis. Unknown if PD had lactate buffer. Monitor serial lactic acid. ?Peritonitis Abdominal pain, vomiting, diarrhea concerning for peritonitis. Will obtain peritoneal fluid cell count and culture. IP vanc/fortaz per nephrology. Empiric coverage with vancomycin IV given in ED and will cover with Fortaz IV x1 dose until blood cultures resulted. Check C. difficile CT abd/pelvis - noncontrast scan unremarkable. Chronic anemia Iron panel, B12 Right lower extremity u/s to rule out DVT Poorly controlled Diabetes mellitus Lantus 5 units subcut qhs. Medium dose insulin sliding scale q4 hours. Secondary hyperparathyroidism Calcitriol 0.25 mg po daily Calcium acetate 667 mg po tid. Of note, patient was on prednisone 20 bid on admission for unclear reasons, this has been held. Wasn't on it during his admission end of December. Panchito Kamara MD Jan 18, 2017 11:31
--- NOTE | 2017-01-18 12:23 | HHI.NPPN ---
Subjective History of Present Illness 61-year-old black male with history of end-stage renal disease, hypertension, new onset of diabetes he was admitted last time with severe hyperglycemia, he was discharge home and he said he did not know how to take insulin and has not taken insulin him back with some abdominal pain, hyperglycemia and received peritoneal dialysis culture has been pending total WBC count was 120 with only 8 % neutrophils. Additional Remarks Patient is alert, no abd. pain, feeling better, eating well, no complain. Review of Systems General Constitutional: Fatigue Cardiovascular Cardiac: AGUILAR Objective Data Data 01/17/17 01/18/17 19:00 07:00 Intake Total 480 ml 400 ml Output Total 1334 ml 450 ml Balance -854 ml -50 ml Intake Oral 400 ml IV Total 480 ml Output Urine Total 350 ml 450 ml Peritoneal Fluid 984 ml # Voids 0 # Bowel Movements 0 Vital Signs Date Time Temp Pulse Resp B/P Pulse Ox O2 Delivery O2 Flow Rate FiO2 01/18/17 12:00 97 01/18/17 10:00 97 01/18/17 08:00 99.8 105 18 109/71 99 01/18/17 08:00 97 01/18/17 07:39 97 01/18/17 06:00 97 01/18/17 04:00 98.6 94 22 112/71 100 01/18/17 04:00 94 01/18/17 02:00 96 01/18/17 00:00 98.9 99 20 98/72 100 01/18/17 00:00 99 01/17/17 22:00 104 01/17/17 20:43 100 21 01/17/17 20:00 76 01/17/17 20:00 99.3 95 20 112/68 99 01/17/17 18:00 76 01/17/17 16:00 101.1 91 21 115/78 100 01/17/17 16:00 76 01/17/17 14:00 76 -: 01/18/17 0615 01/18/17 0615 Physical Exam General Appearance: Well Nourished, No Acute Distress, Comfortable Eyes Eye Exam: Pupils Equal Throat Throat Exam: Oral Mucosa [place] & Moist Neck Neck Exam: Neck Supple Pulmonary Resp Exam: Breath Sounds Equal, No Distress, Decreased Bases Cardiology CV Exam: Regular, Normal Sinus Rhythm Gastrointestinal/Abdomen GI Exam: Soft, Non-Tender, Bowel Sounds Present, Distended (with PD catheter in place.) Extremeties Extremities Exam: Trace Edema Neurologic Neuro Exam: Alert, Awake, Oriented Psychiatric Psych Exam: Appropriate Responses Assessment/Plan Problem List: (1) ESRD (end stage renal disease) Plan: Patient is on peritoneal dialysis in the days lack of evidence for active peritonitis based on the cell studies cultures are negative. Continue to monitor he is noncompliant he has learned the technique of using the insulin. BS is improving. Hgb. is low but stable. Continue same PD. (2) Lactic acidosis Plan: Resolved (3) HTN (hypertension) Plan: Continue to monitor (4) Diabetic hyperosmolar non-ketotic state Plan: Blood sugar is better with insulin (5) Increased serum lipase level Plan: levels decrease unknown etiology restart diet Problem Qualifiers (1) HTN (hypertension): Qualified Code: I10 - Essential hypertension Singh Villela MD Jan 18, 2017 12:23
[2017-01-19] VITALS (9 sets, daily range): BP systolic 99–114; BP diastolic 61–77; PULSE 94–110; RESP 16–24; TEMP 98.3–102.7; O2SAT 92–100
[2017-01-19] MEDS: ACETAMINOPHEN 325 MG TAB PO PRN ×2 (01:46→15:41)
[2017-01-19] MEDS: RESP: ALBUTEROL 2.5 MG/IPRATROPIUM 0.5 MG NEB (SCH) INH ×4 (03:39→19:09)
[2017-01-19] MEDS: CHLORHEXIDINE GLUCONATE 2 % 1 PACK (2 CLOTHS) TOP SCH (04:00)
[2017-01-19] MEDS: INSULIN ASPART SUPPLEMENTAL SCALE SQ SCH (06:21)
[2017-01-19 07:58] LABS: HEMATOCRIT 24.2 % (39.0-51.0); MEAN CELL VOLUME 92.3 FL (80.0-100.0); MEAN CORPUSCULAR HEMOGLOBIN 31.3 PG (27.0-34.0); MEAN CORPUSCULAR HGB CONC 33.9 % (32.0-36.0); PLATELET COUNT 149 TH/MM3 (150-450); RED BLOOD COUNT 2.62 MIL/MM3 (4.50-5.90); RED CELL DISTRIBUTION WIDTH 15.8 % (11.6-17.2); REVIEW FLAG FINAL; WHITE BLOOD COUNT 6.8 TH/MM3 (4.0-11.0)
[2017-01-19 08:24] LABS: BICARBONATE 22.4 MEQ/L (21.0-32.0)
[2017-01-19] MEDS: CALCIUM ACETATE 667 MG CAP PO SCH ×3 (08:44→17:14)
[2017-01-19] MEDS: CALCITRIOL 0.25 MCG CAP PO SCH (08:44)
[2017-01-19] MEDS: cloNIDine HCL 0.3 MG TAB PO SCH ×3 (08:44→17:14)
[2017-01-19] MEDS: HEPARIN SODIUM - SQ 10,000 UNITS/ML VIAL SQ SCH (08:45)
[2017-01-19] MEDS: amLODIPine BESYLATE 5 MG TAB PO SCH (08:45)
[2017-01-19] MEDS: PANTOPRAZOLE SODIUM 40 MG VIAL IV SCH (08:45)
[2017-01-19] MEDS: SODIUM CHLORIDE 0.9% FLUSH 10 ML FLUSH SCH (08:46)
[2017-01-19] MEDS: DOCUSATE SODIUM 50 MG/SENNA 8.6 MG TAB PO SCH (08:46)
[2017-01-19] MEDS: POTASSIUM CHLORIDE 20 MEQ CONTROLLED RELEASE TAB PO SCH (09:00)
--- NOTE | 2017-01-19 11:08 | HHI.PR ---
Subjective Remarks patient looks fatigued and slightly diaphoretic, temperature of 101.3 abdomen is slightly tender to palpation Objective Vitals Vital Signs Date Time Temp Pulse Resp B/P Pulse Ox O2 Delivery O2 Flow Rate FiO2 01/19/17 08:00 98.7 99 24 113/70 100 01/19/17 04:15 99.0 103 18 106/64 99 01/19/17 03:41 92 21 01/19/17 01:05 101.3 97 16 110/70 99 01/18/17 21:02 99 21 01/18/17 20:52 98.4 89 18 110/56 100 01/18/17 20:15 Room Air 01/18/17 16:00 Room Air 01/18/17 15:00 98.6 97 20 97/63 98 01/18/17 14:00 97 01/18/17 12:00 97 01/18/17 12:00 100.3 93 25 103/65 98 I/O 01/18/17 01/18/17 01/18/17 01/19/17 01/19/17 01/19/17 07:00 15:00 23:00 07:00 15:00 23:00 Intake Total 200 ml 480 ml 240 ml 240 ml Output Total 450 ml 1126 ml 150 ml 150 ml 1112 ml Balance -250 ml -646 ml 90 ml 90 ml -1112 ml Intake Oral 200 ml 480 ml 240 ml 240 ml Output Urine Total 450 ml 200 ml 150 ml 150 ml Peritoneal Fluid 926 ml 1112 ml # Bowel Movements 0 Result Diagram: 01/19/1771601/19/17716 Objective Remarks - - GENERAL: This is a well-nourished, well-developed patient, in no apparent distress. SKIN: No rashes, warm and dry HEAD: Atraumatic. Normocephalic. EYES: Pupils equal round and reactive. Extraocular motions intact. No scleral icterus. ENT: Nose without bleeding, or drainage, Airway patent. NECK: Trachea midline. Supple CARDIOVASCULAR: Tachycardia rhythm without murmurs, gallops, or rubs. RESPIRATORY: Fair air entry bilaterally. No wheezes, rales, or rhonchi. GASTROINTESTINAL: Abdomen soft, slightly tender to palpationr, nondistended. Positive bowel sounds MUSCULOSKELETAL: Extremities without clubbing, cyanosis, +1 edema. Pedal pulses appreciated NEUROLOGICAL: Awake and alert. Moves all extremity. Normal speech.no focal neurological deficit A/P Assessment and Plan last update 01/19: patient had a temperature of 101.3 and increased lactic acid, we will reconsult ID for antibiotic management, possibly recurrent sepsis especially with her diabetes is hard to control blood glucose 400 we'll give 1 dose of cefepime, repeat blood culture. for diabetes we'll add Levemir twice a day and upgrade insulin sliding scale discussed with the nurse, please call for infectious disease and renal A/P: Hyperammonemia elevated ammonia level, unclear clinical significance, followup. Lortab as needed for pain. Morphine as needed for breakthrough pain Acute respiratory alkalosis COPD Tobacco abuse Pt was previously on prednisone, unclear if secondary to COPD? Pt uncertain. Will hold for now in view of hyperglycemia Duoneb q6 hours. Albuterol q2 hours prn. Unclear why patient had acute respiratory alkalosis on arrival and uncertain if blood gas is arterial sample though noted PaO2 of 55. ?pain/anxiety. Sats are currently 99% on RA. PE is a consideration given respiratory alkalosis and tachycardia, but patient has no symptoms of SOB/CP/hemoptysis and does have wheezing on exam. Will do RLE u/s for his pedal edema and initiate anticoagulation if appropriate. If negative u/s will consider d-dimer and then VQ scan if positive ddimer. Doubt salicylate (ASA allergy), but level pending. Hypertension Hypertriglyceridemia Triglyceride 290, Check remainder of lipid panel. Continue clonidine 0.3 g by mouth 3 times a day, Norvasc 5 mg by mouth twice a day Labetalol prn SBP >170. Elevated lipase ?pancreatitis CT abdomen and pelvis noncontrast with normal gallbladder, liver, pancreas. Triglyceride level elevated but not contributory, 290. No prior h/o pancreatitis Hepatitis C GERD There is thickening of stomach noted on CT abd/pelvis and may need EGD at some point though could be done as outpatient. Protonix 40 mg IV daily for stress ulcer prophylaxis Moderate protein energy malnutrition ESRD on peritoneal dialysis PD tonight per Dr. Sosa Lactic acidemia ?secondary to poor clearance vs sepsis. Unknown if PD had lactate buffer. Monitor serial lactic acid. ?Peritonitis Abdominal pain, vomiting, diarrhea concerning for peritonitis. peritoneal fluid did not reveal peritonitis or SBP. IP vanc/fortaz per nephrology. Empiric coverage with vancomycin IV given in ED and will cover with Fortaz IV x1 dose until blood cultures resulted. CT abd/pelvis - noncontrast scan unremarkable. peritoneal fluid no peritonitis, renal following, continue current care Chronic anemia Iron panel, B12 Right lower extremity u/s to rule out DVT Poorly controlled Diabetes mellitus Lantus 5 units subcut qhs. Medium dose insulin sliding scale q4 hours. Secondary hyperparathyroidism Calcitriol 0.25 mg po daily Calcium acetate 667 mg po tid. Of note, patient was on prednisone 20 bid on admission for unclear reasons, this has been held. Wasn't on it during his admission end of December. Panchito Kamara MD Jan 19, 2017 11:08
[2017-01-19] MEDS ORDERED: DEXTROSE 50% IN WATER 50 ML VIAL(D50) IV PRN (11:15)
[2017-01-19] MEDS ORDERED: GLUCAGON 1 MG/ML VIAL OTHER PRN (11:15)
[2017-01-19] MEDS: INSULIN DETEMIR 100 UNITS/ML VIAL SQ SCH (11:59)
[2017-01-19] MEDS ORDERED: CEFEPIME INJ 2,000 MG in SODIUM CHLORIDE 0.9% INJ 100 ML IV ONE (12:00)
--- NOTE | 2017-01-19 12:56 | PD.ID.CON ---
History of Present Illness Service ID Consult Requested By Dr Kamara Reason for Consult fever; ESRD/PD Primary Care Physician Diagnoses: History of Present Illness 61 yo male with ERD/on peritoneal dylisis via Tenkoff cath started 3 months ago presented to [facility] emergency department via [facility] after family member urged him to seek medical attention for hyperglycemia He presented with sugars in 700 range and low grade fever, abdominal pain His w/u remarkable for lipase of 2004, glucose 760, anion gap 17, lactic acid 4.1, beta hydroxybutyrate 0.51, ammonia 59. CT abdomen and pelvis performed without contrast demonstrates no loculated fluid and pancreas appeared normal. He cont to have fever up to 101 His PD fluid culture negative @ 72 hrs, ANC is very low (8% of total 120 WBC) - not cw PD cath peritonitis He is on cefepime Blood clx from admission negative @ 4 days, repeat BC were done today His urinalysis not cw infx CXR, CT w/o contrast - unremarkable Review of Systems Constitutional: COMPLAINS OF: Fever, Weight loss Except as stated in HPI: all other systems reviewed are Neg Past Family Social History Allergies: Coded Allergies: Aspirin (Unverified Allergy, Unknown, 01/15/17) HEP C Past Medical History ESRD Hypertension Diabetes Noncompliance Hepatitis C Past Surgical History Tenckhoff catheter placement Left knee surgery Active Ordered Medications Medications where reviewed in EMR Antibiotics Include: cefepime Family History Non-Contributory. Social History + Tobacco. 08/13-08/12 ppd No ETOH. No Illicit Drugs. Physical Exam Vital Signs Vital Signs Date Time Temp Pulse Resp B/P Pulse Ox O2 Delivery O2 Flow Rate FiO2 01/19/17 12:01 100.3 110 22 114/77 98 01/19/17 08:00 98.7 99 24 113/70 100 01/19/17 04:15 99.0 103 18 106/64 99 01/19/17 03:41 92 21 01/19/17 01:05 101.3 97 16 110/70 99 01/18/17 21:02 99 21 01/18/17 20:52 98.4 89 18 110/56 100 01/18/17 20:15 Room Air 01/18/17 16:00 Room Air 01/18/17 15:00 98.6 97 20 97/63 98 01/18/17 14:00 97 Physical Exam CONSTITUTIONAL/GENERAL: This is an adequately nourished patient, in no apparent distress. TUBES/LINES/DRAINS: SKIN: No jaundice, rashes, or lesions. . Skin temperature appropriate. Not diaphoretic. HEAD: Atraumatic. Normocephalic. EYES: Pupils equal and round and reactive. Extraocular motions intact. No scleral icterus. No injection or drainage. Fundi not examined. ENT: Hearing grossly normal. Nose without bleeding or purulent drainage. Oral mucosae moist without visible erythema, exudates, masses, or lesions. Dentition is very poor lower jaw, upper dentures NECK: Trachea midline. Supple, nontender. No palpable thyroid enlargement or nodularity. CARDIOVASCULAR: Regular rate and rhythm without murmurs, gallops, or rubs. No JVD. Peripheral pulses symmetric. RESPIRATORY/CHEST: Symmetric, unlabored respirations. Clear to auscultation. Breath sounds equal bilaterally. No wheezes, rales, or rhonchi. GASTROINTESTINAL: Abdomen soft, non-tender, mildly distended. No hepato- splenomegaly, or palpable masses. No guarding. Bowel sounds present. Tenkoff in place GENITOURINARY: Without palpable bladder distension. MUSCULOSKELETAL: Extremities without clubbing, cyanosis, or edema. No joint tenderness or effusion noted. No calf tenderness. No mottling or clubbing. No wounds on the feet R little finger - sp part amputation, traumatic - healed LYMPHATICS: No palpable cervical or supraclavicular adenopathy. NEUROLOGICAL: Awake and alert. Motor and sensory grossly within normal limits. Follows commands. Clear speech. Moves all extremities. PSYCHIATRIC: No obvious anxiety/depression. no apparent hallucinations or other psychotic thought process. Laboratory Laboratory Tests Test 01/19/17 07:17 White Blood Count 6.8 Red Blood Count 2.62 Hemoglobin 8.2 Hematocrit 24.2 Mean Corpuscular Volume 92.3 Mean Corpuscular Hemoglobin 31.3 Mean Corpuscular Hemoglobin 33.9 Concent Red Cell Distribution Width 15.8 Platelet Count 149 Mean Platelet Volume 9.2 Sodium Level 133 Potassium Level 5.0 Chloride Level 99 Carbon Dioxide Level 22.4 Anion Gap 12 Blood Urea Nitrogen 50 Creatinine 7.27 Estimat Glomerular Filtration 9 Rate Random Glucose 301 Calcium Level 7.7 Date/Time Procedure Status Source Growth 01/19/17 11:45 Aerobic Blood Culture Received Blood Peripheral Pending 01/19/17 11:45 Anaerobic Blood Culture Received Blood Peripheral Pending 01/16/17 00:30 Gram Stain - Final Complete Fluid Peritoneal Fluid 01/16/17 00:30 Body Fluid Culture - Final Complete Fluid Peritoneal Fluid NO GROWTH IN 72 HRS.--AEROBICALLY OR ... 01/15/17 21:00 Aerobic Blood Culture - Preliminary Resulted Blood Peripheral NO GROWTH IN 4 DAYS 01/15/17 21:00 Anaerobic Blood Culture - Preliminary Resulted Blood Peripheral NO GROWTH IN 4 DAYS Result Diagram: 01/19/1771601/19/17716 Imaging Last Impressions Lung Scan-VQ Nuclear Medicine 01/16/17 0000 Signed Impressions: Service Date/Time: Monday, January 16, 2017 15:38 - CONCLUSION: Low probability for pulmonary embolism. Edgardo Goldstein MD FACR Lower Extremity Ultrasound 01/16/17 0000 Signed Impressions: Service Date/Time: Monday, January 16, 2017 08:17 - CONCLUSION: Normal examination. Satinder Khanna Jr., MD Chest X-Ray 01/15/172056 Signed Impressions: Service Date/Time: January 21:26 - CONCLUSION: No acute disease. Juan Ramirez MD Abdomen/Pelvis CT 01/15/17 0000 Signed Impressions: Service Date/Time: January 22:54 - CONCLUSION: 1. Patient is on peritoneal dialysis. There is small moderate ascites, increased from before. No loculated fluid. 2. Decreased gastric wall thickening, now mild. Nasogastric tube has been removed. 3. No obstruction or perceptible acute inflammatory changes seen of the gastrointestinal tract. Juan Mercado MD Assessment and Plan Assessment and Plan FUO, lactic acidosis - No e/o PD cath infx per clx - BC negative - ongoing fever Poorly controlled DM Immunosuppressed: high dose d sterroids (pt is unaware for what disease and for how long he is taking it "I just take what the doctor tells me") REC's: cont cefepiem, vanco fu repeat BC ESR, CRP. procalcitonine 2 D echo - CMV, crypto AG Tosha Mitchell MD Jan 19, 2017 12:56
[2017-01-19] MEDS: LOW DOSE INSULIN NOVOLIN REGULAR SUPPLEMENTAL SCALE SQ SCH ×2 (13:52→17:17)
[2017-01-19] MEDS ORDERED: INSULIN NovoLIN REGULAR SUPPLEMENTAL SCALE SQ SCH (16:00)
--- NOTE | 2017-01-19 17:38 | HHI.NPPN ---
Subjective History of Present Illness 61-year-old black male with history of end-stage renal disease, hypertension, new onset of diabetes he was admitted last time with severe hyperglycemia, he was discharge home and he said he did not know how to take insulin and has not taken insulin him back with some abdominal pain, hyperglycemia and received peritoneal dialysis culture has been pending total WBC count was 120 with only 8 % neutrophils. Additional Remarks Patient is alert, no abd. pain, feeling better, eating well, no complain. Review of Systems General Constitutional: Fatigue Cardiovascular Cardiac: AGUILAR Objective Data Data 01/18/17 01/19/17 19:00 07:00 Intake Total 480 ml 480 ml Output Total 1126 ml 300 ml Balance -646 ml 180 ml Intake Oral 480 ml 480 ml Output Urine Total 200 ml 300 ml Peritoneal Fluid 926 ml Vital Signs Date Time Temp Pulse Resp B/P Pulse Ox O2 Delivery O2 Flow Rate FiO2 01/19/17 16:00 102.7 94 22 108/62 01/19/17 12:01 100.3 110 22 114/77 98 01/19/17 12:00 Room Air 01/19/17 08:09 102 01/19/17 08:09 Room Air 01/19/17 08:00 98.7 99 24 113/70 100 01/19/17 04:15 99.0 103 18 106/64 99 01/19/17 03:41 92 21 01/19/17 01:05 101.3 97 16 110/70 99 01/18/17 21:02 99 21 01/18/17 20:52 98.4 89 18 110/56 100 01/18/17 20:15 Room Air -: 01/19/17 0717 01/19/17 0717 Microbiology 01/19/17 Aerobic Blood Culture, Received Pending 01/19/17 Anaerobic Blood Culture, Received Pending 01/19/17 Aerobic Blood Culture, Received Pending 01/19/17 Anaerobic Blood Culture, Received Pending Physical Exam General Appearance: Well Nourished, No Acute Distress, Comfortable Eyes Eye Exam: Pupils Equal Throat Throat Exam: Oral Mucosa [place] & Moist Neck Neck Exam: Neck Supple Pulmonary Resp Exam: Breath Sounds Equal, No Distress, Decreased Bases Cardiology CV Exam: Regular, Normal Sinus Rhythm Gastrointestinal/Abdomen GI Exam: Soft, Non-Tender, Bowel Sounds Present, Distended (with PD catheter in place.) Extremeties Extremities Exam: Trace Edema Neurologic Neuro Exam: Alert, Awake, Oriented Psychiatric Psych Exam: Appropriate Responses Assessment/Plan Problem List: (1) ESRD (end stage renal disease) Plan: Patient is on peritoneal dialysis, he has Lactic acidosis less then 4 sepsis or this could represent Mitochondrial defect Thiamine deficiency also can be suspected give Thiamine today recheck Lactic acid in am ID following (2) Lactic acidosis Plan: as above (3) HTN (hypertension) Plan: Continue to monitor (4) Diabetic hyperosmolar non-ketotic state Plan: Blood sugar is better with insulin Problem Qualifiers (1) HTN (hypertension): Qualified Code: I10 - Essential hypertension Ned Sosa MD Jan 19, 2017 17:38
[2017-01-19] MEDS ORDERED: THIAMINE HCL 100 MG TAB PO ONE (17:45)
--- NOTE | 2017-01-19 18:46 | HHI.PR ---
Addendum to Inpatient Note Additional Information Fever over 102 - cefpeime - vancomycin - worsening lacti acid Tosha Mitchell MD Jan 19, 2017 18:46
[2017-01-20] VITALS (8 sets, daily range): BP systolic 90–120; BP diastolic 57–84; PULSE 84–107; RESP 17–20; TEMP 98–101.1; O2SAT 98–100
[2017-01-20] MEDS: POTASSIUM CHLORIDE 20 MEQ CONTROLLED RELEASE TAB PO SCH (00:29)
[2017-01-20] MEDS: amLODIPine BESYLATE 5 MG TAB PO SCH ×2 (00:29→08:06)
[2017-01-20] MEDS: DOCUSATE SODIUM 50 MG/SENNA 8.6 MG TAB PO SCH ×3 (00:30→21:00)
[2017-01-20] MEDS: HEPARIN SODIUM - SQ 10,000 UNITS/ML VIAL SQ SCH ×3 (00:31→22:12)
[2017-01-20] MEDS: INSULIN DETEMIR 100 UNITS/ML VIAL SQ SCH ×3 (00:32→22:11)
[2017-01-20] MEDS: LOW DOSE INSULIN NOVOLIN REGULAR SUPPLEMENTAL SCALE SQ SCH ×5 (00:33→22:10)
[2017-01-20] MEDS: CHLORHEXIDINE GLUCONATE 2 % 1 PACK (2 CLOTHS) TOP SCH (04:00)
[2017-01-20 06:08] LABS: AUTOMATED NEUTROPHIL # 6.4 TH/MM3 (1.8-7.7); BASOPHIL # 0.1 TH/MM3 (0-0.2); BASOPHIL % 0.9 % (0.0-2.0); EOSINOPHIL % 0.3 % (0.0-4.0); HEMATOCRIT 23.9 % (39.0-51.0); LYMPH % 18.1 % (9.0-44.0); LYMPHOCYTE # 1.6 TH/MM3 (1.0-4.8); MEAN CELL VOLUME 92.2 FL (80.0-100.0); MEAN CORPUSCULAR HEMOGLOBIN 30.4 PG (27.0-34.0); MONO % 10.1 % (0.0-8.0); NEUT % 70.6 % (16.0-70.0); PLATELET COUNT 167 TH/MM3 (150-450); RED BLOOD COUNT 2.59 MIL/MM3 (4.50-5.90); RED CELL DISTRIBUTION WIDTH 15.9 % (11.6-17.2)
[2017-01-20 06:12] LABS: HEMO FLAGS AUTO DIFF
[2017-01-20] MEDS: ACETAMINOPHEN 325 MG TAB PO PRN (06:20)
[2017-01-20 06:35] LABS: ALKALINE PHOSPHATASE 292 U/L (45-117); ALT (GPT) 35 U/L (12-78); ANION GAP 11 MEQ/L (5-15); AST (GOT) 37 U/L (15-37); BICARBONATE 23.8 MEQ/L (21.0-32.0); BLOOD UREA NITROGEN 51 MG/DL (7-18); CHLORIDE 101 MEQ/L (98-107); GLOMERULAR FILTRATION RATE 9 ML/MIN (>89); POTASSIUM 5.5 MEQ/L (3.5-5.1); SODIUM (NA) 136 MEQ/L (136-145); TOTAL BILIRUBIN ADULT 0.3 MG/DL (0.2-1.0)
[2017-01-20 07:41] LABS: BANDS 14 % (0-6); BASOPHILS 1 % (0-2); NEUTROPHIL # MANUAL DIFF 7.2 TH/MM3 (1.8-7.7); PLATELET ESTIMATE SMEAR NORMAL (NORMAL); PLATELET MORPHOLOGY NORMAL (NORMAL); POLYS (SEG NEUTROPHILS) 66 % (16-70); SCAN/DIFF FINAL DIFF MANUAL; WBC DIFF SAMPLE 100
[2017-01-20] MEDS: CALCIUM ACETATE 667 MG CAP PO SCH ×3 (07:54→17:47)
[2017-01-20] MEDS: CALCITRIOL 0.25 MCG CAP PO SCH (07:55)
[2017-01-20] MEDS: THIAMINE HCL 100 MG TAB PO SCH (07:55)
[2017-01-20] MEDS: PANTOPRAZOLE SODIUM 40 MG VIAL IV SCH (07:56)
[2017-01-20] MEDS: SODIUM CHLORIDE 0.9% FLUSH 10 ML FLUSH SCH ×2 (07:57→21:00)
[2017-01-20] MEDS: cloNIDine HCL 0.3 MG TAB PO SCH ×2 (08:06→12:25)
[2017-01-20] MEDS: SODIUM CHLOR 0.9% 1000 ML INJ 1,000 ML IV SCH ×2 (09:02→17:48)
--- NOTE | 2017-01-20 09:19 | HHI.PR ---
Subjective Remarks The patient was resting in bed comfortably. He said he has not been ambulating much. He said he was feeling better. He denied shortness of breath. He says he smokes a pack every 3 or 4 days. He denies any chills. Objective Vitals Vital Signs Date Time Temp Pulse Resp B/P Pulse Ox O2 Delivery O2 Flow Rate FiO2 01/20/17 07:44 99.0 91 20 90/57 98 01/20/17 05:00 101.1 95 18 99/64 100 01/20/17 00:00 Room Air 01/20/17 00:00 99.5 92 17 111/75 100 01/19/17 20:00 Room Air 01/19/17 20:00 98.3 95 18 99/61 01/19/17 17:24 100.4 01/19/17 16:00 Room Air 01/19/17 16:00 102.7 94 22 108/62 01/19/17 12:01 100.3 110 22 114/77 98 01/19/17 12:00 Room Air I/O 01/19/17 01/19/17 01/19/17 01/20/17 01/20/17 01/20/17 07:00 15:00 23:00 07:00 15:00 23:00 Intake Total 240 ml 480 ml 240 ml Output Total 150 ml 1612 ml 175 ml 275 ml 452 ml Balance 90 ml -1132 ml -175 ml -35 ml -452 ml Intake Oral 240 ml 480 ml 240 ml Output Urine Total 150 ml 500 ml 175 ml 275 ml Peritoneal Fluid 1112 ml Hemodialysis 452 ml Result Diagram: 01/20/17 0547 01/20/17 0547 Imaging Last Impressions Lung Scan-VQ Nuclear Medicine 01/16/17 0000 Signed Impressions: Service Date/Time: Monday, January 16, 2017 15:38 - CONCLUSION: Low probability for pulmonary embolism. Edgardo Goldstein MD FACR Lower Extremity Ultrasound 01/16/17 0000 Signed Impressions: Service Date/Time: Monday, January 16, 2017 08:17 - CONCLUSION: Normal examination. Satinder Khanna Jr., MD Chest X-Ray 01/15/172056 Signed Impressions: Service Date/Time: January 21:26 - CONCLUSION: No acute disease. Juan Ramirez MD Abdomen/Pelvis CT 01/15/17 0000 Signed Impressions: Service Date/Time: January 22:54 - CONCLUSION: 1. Patient is on peritoneal dialysis. There is small moderate ascites, increased from before. No loculated fluid. 2. Decreased gastric wall thickening, now mild. Nasogastric tube has been removed. 3. No obstruction or perceptible acute inflammatory changes seen of the gastrointestinal tract. Jaun Mercado MD Objective Remarks GENERAL: This is a well-nourished, well-developed patient, in no apparent distress. SKIN: No rashes, warm and dry HEAD: Atraumatic. Normocephalic. EYES: Pupils equal round and reactive. Extraocular motions intact. No scleral icterus. ENT: Nose without bleeding, or drainage, Airway patent. NECK: Trachea midline. Supple CARDIOVASCULAR: Tachycardia rhythm without murmurs, gallops, or rubs. RESPIRATORY: Fair air entry bilaterally, mild wheezing. GASTROINTESTINAL: Abdomen soft, non-tender, nondistended. Positive bowel sounds MUSCULOSKELETAL: Extremities without clubbing, cyanosis, no edema. Pedal pulses appreciated. NEUROLOGICAL: Awake and alert. Moves all extremity. Normal speech. No focal neurological deficit. PSYCH: Flattened affect. Medications and IVs Current Medications Medications (Trade) Dose Ordered Sig/Issac Route Start Time Stop Time Status Last Admin (NS Flush) 10 ml UNSCH PRN IV FLUSH 01/15/17 22:30 (NS Flush) 2 ml UNSCH PRN .XX 01/15/17 23:30 (NS Flush) 2 ml BID .XX 01/16/17 09:00 01/20/17 07:57 (Tylenol) 650 mg Q6H PRN PO 01/15/17 23:30 01/20/17 06:20 (Protonix Inj) 40 mg DAILY IV 01/16/17 09:00 01/20/17 07:56 (Zofran Inj) 4 mg Q6H PRN IV 01/15/17 23:30 01/16/17 04:51 Miscellaneous Information 1 Q361D XX 01/15/17 23:30 01/15/17 23:30 (Chlorhexidine 2% Cloth) 3 pack Taper DAILY@04 TOP 01/16/17 04:00 01/12/18 03:59 01/18/17 04:00 (Chlorhexidine 2% Cloth) 3 pack UNSCH PRN TOP 01/15/17 23:30 (Jessica-Colace) 1 tab BID PO 01/16/17 09:00 01/20/17 00:30 (Milk Of Magnesia Liq) 30 ml Q12H PRN PO 01/15/17 23:30 (Senokot) 17.2 mg Q12H PRN PO 01/15/17 23:30 (Dulcolax Supp) 10 mg DAILY PRN RECTAL 01/15/17 23:30 (Lactulose Liq) 30 ml DAILY PRN PO 01/15/17 23:30 (Norvasc) 5 mg BID PO 01/16/17 09:00 Hold 01/20/17 00:29 (Rocaltrol) 0.25 mcg DAILY PO 01/16/17 09:00 01/20/17 07:55 (Phoslo) 667 mg TID PO 01/16/17 09:00 01/20/17 07:54 (Catapres) 0.3 mg TID PO 01/16/17 09:00 01/19/17 17:14 (Trandate Inj) 10 mg Q4H PRN IV PUSH 01/16/17 00:15 01/16/17 01:32 (Heparin Inj) 5,000 units Q12HR SQ 01/16/17 09:00 01/20/17 07:56 ([place] 5-325 Mg) 1 tab Q6H PRN PO 01/16/17 05:15 (Morphine Inj) 2 mg Q3H PRN IV PUSH 01/16/17 05:15 (KCl) 20 meq Q12HR PO 01/16/17 10:45 Hold 01/20/17 00:29 (Levemir Inj) 5 units Q12HR SQ 01/19/17 12:00 01/20/17 08:05 (D50w (Vial) Inj) 50 ml UNSCH PRN IV 01/19/17 11:15 (Glucagon Inj) 1 mg UNSCH PRN OTHER 01/19/17 11:15 Thiamine HCl 100 mg 100 mg DAILY PO 01/20/17 09:00 01/20/17 07:55 (NS 1000 ml Inj) 1,000 ml @ 100 mls/hr Q10H IV 01/20/17 08:15 01/20/17 09:02 A/P Assessment and Plan Acute respiratory alkalosis/ COPD Alkalosis likely compensatory for metabolic acidosis. Pt was previously on prednisone, unclear if secondary to COPD. He smokes a pack every few days. - smoking cessation instruction. - oxygen as needed. - prednisone 20 mg BID and taper gradually. - encourage ambulation. Hypertension The pt has been hypotensive. He was on steroids which were discontinued. - hold clonidine and amlodipine. - resume prednisone. - fluids. Peritonitis/ Elevated lipase Presented with abdominal pain, vomiting and diarrhea. CT abdomen and pelvis noncontrast with normal gallbladder, liver, pancreas. Triglyceride level elevated but not contributory, 290. No prior h/o pancreatitis. There is thickening of stomach noted on CT abd/pelvis and may need EGD at some point though could be done as outpatient. Peritoneal fluid negative for SBP. Symptoms appear to be resolved. Still spiking fevers. - Protonix 40 mg IV daily for stress ulcer prophylaxis. - antibiotics per ID. - trend lipase level. ESRD/ Hyperkalemia On peritoneal dialysis. - PD per Dr. Sosa. - d/c KCl and give Kayexalate as needed. Lactic acidemia ? secondary to poor clearance vs sepsis. Unknown if PD had lactate buffer. - Monitor serial lactic acid. - IV vanc/ Fortaz per ID. - IVFs. Chronic anemia Likely s/t chronic disease. - follow CBC and transfuse as needed. Diabetes mellitus Poorly controlled. - Levemir and medium dose insulin sliding scale. Secondary hyperparathyroidism S/t renal disease. - Calcitriol 0.25 mg po daily, calcium acetate 667 mg po tid. PPx: Heparin Discharge Planning Awaiting clinical improvement Saud German DO Jan 20, 2017 09:19
[2017-01-20] MEDS ORDERED: predniSONE 20 MG TAB PO SCH (09:30)
--- NOTE | 2017-01-20 12:30 | HHI.NPPN ---
Subjective History of Present Illness 61-year-old black male with history of end-stage renal disease, hypertension, new onset of diabetes he was admitted last time with severe hyperglycemia, he was discharge home and he said he did not know how to take insulin and has not taken insulin him back with some abdominal pain, hyperglycemia and received peritoneal dialysis culture has been pending total WBC count was 120 with only 8 % neutrophils. Additional Remarks Patient is alert, no abd. pain, feeling better, eating well, no complain. Review of Systems General Constitutional: Fatigue Cardiovascular Cardiac: AGUILAR Objective Data Data 01/19/17 01/20/17 19:00 07:00 Intake Total 480 ml 240 ml Output Total 1612 ml 450 ml Balance -1132 ml -210 ml Intake Oral 480 ml 240 ml Output Urine Total 500 ml 450 ml Peritoneal Fluid 1112 ml Vital Signs Date Time Temp Pulse Resp B/P Pulse Ox O2 Delivery O2 Flow Rate FiO2 01/20/17 11:54 98.9 84 18 106/59 100 01/20/17 08:00 90 01/20/17 08:00 Room Air 01/20/17 07:44 99.0 91 20 90/57 98 01/20/17 05:00 101.1 95 18 99/64 100 01/20/17 00:00 Room Air 01/20/17 00:00 99.5 92 17 111/75 100 01/19/17 20:00 Room Air 01/19/17 20:00 98.3 95 18 99/61 01/19/17 17:24 100.4 01/19/17 16:00 Room Air 01/19/17 16:00 102.7 94 22 108/62 -: 01/20/17 0547 01/20/17 0547 Physical Exam General Appearance: Well Nourished, No Acute Distress, Comfortable Eyes Eye Exam: Pupils Equal Throat Throat Exam: Oral Mucosa [place] & Moist Neck Neck Exam: Neck Supple Pulmonary Resp Exam: Breath Sounds Equal, No Distress, Decreased Bases Cardiology CV Exam: Regular, Normal Sinus Rhythm Gastrointestinal/Abdomen GI Exam: Soft, Non-Tender, Bowel Sounds Present, Distended (with PD catheter in place.) Extremeties Extremities Exam: Trace Edema Neurologic Neuro Exam: Alert, Awake, Oriented Psychiatric Psych Exam: Appropriate Responses Assessment/Plan Problem List: (1) ESRD (end stage renal disease) Plan: Patient is on peritoneal dialysis, he has Lactic acidosis less then 4 sepsis ID following since febrile restarted antibiotics BC drawn IVF Low BP hold clonidine Do not know why he is on high dose Prednisone ???\ there is no indication to use steroid will recommend stopping it discuss with Dr. Mitchell ID give Epogen ask him to bring prescription bottles to see who is prescribing him steroids (2) Lactic acidosis Plan: as above (3) HTN (hypertension) Plan: Continue to monitor (4) Diabetic hyperosmolar non-ketotic state Plan: Blood sugar is better with insulin Problem Qualifiers (1) HTN (hypertension): Qualified Code: I10 - Essential hypertension Ned Sosa MD Jan 20, 2017 12:30
[2017-01-20] MEDS ORDERED: EPOETIN ALFA 20,000 UNITS/ML VIAL SQ ONE (12:45)
--- NOTE | 2017-01-20 13:37 | HHI.IDPN ---
Subjective Subjective Remarks remains febrile, down to 101F he is not co of anything all clx remain negative Antibiotics vanco cefepime Allergies: Coded Allergies: Aspirin (Unverified Allergy, Unknown, 01/15/17) HEP C Objective . Vital Signs Date Time Temp Pulse Resp B/P Pulse Ox O2 Delivery O2 Flow Rate FiO2 01/20/17 11:54 98.9 84 18 106/59 100 01/20/17 08:00 90 01/20/17 08:00 Room Air 01/20/17 07:44 99.0 91 20 90/57 98 01/20/17 05:00 101.1 95 18 99/64 100 01/20/17 00:00 Room Air 01/20/17 00:00 99.5 92 17 111/75 100 01/19/17 20:00 Room Air 01/19/17 20:00 98.3 95 18 99/61 01/19/17 17:24 100.4 01/19/17 16:00 Room Air 01/19/17 16:00 102.7 94 22 108/62 01/19/17 01/19/17 01/20/17 15:00 23:00 07:00 Intake Total 480 ml 240 ml Output Total 1612 ml 175 ml 275 ml Balance -1132 ml -175 ml -35 ml Intake Oral 480 ml 240 ml Output Urine Total 500 ml 175 ml 275 ml Peritoneal Fluid 1112 ml . Laboratory Tests Test 01/19/17 01/19/17 01/20/17 07:17 16:36 05:47 White Blood Count 6.8 TH/MM3 9.0 TH/MM3 Red Blood Count 2.62 MIL/MM3 2.59 MIL/MM3 Hemoglobin 8.2 GM/DL 7.9 GM/DL Hematocrit 24.2 % 23.9 % Mean Corpuscular Volume 92.3 FL 92.2 FL Mean Corpuscular Hemoglobin 31.3 PG 30.4 PG Mean Corpuscular Hemoglobin 33.9 % 33.0 % Concent Red Cell Distribution Width 15.8 % 15.9 % Platelet Count 149 TH/MM3 167 TH/MM3 Mean Platelet Volume 9.2 FL 9.0 FL Erythrocyte Sedimentation Rate 84 mm/hr Neutrophils (%) (Auto) 70.6 % Lymphocytes (%) (Auto) 18.1 % Monocytes (%) (Auto) 10.1 % Eosinophils (%) (Auto) 0.3 % Basophils (%) (Auto) 0.9 % Neutrophils # (Auto) 6.4 TH/MM3 Lymphocytes # (Auto) 1.6 TH/MM3 Monocytes # (Auto) 0.9 TH/MM3 Eosinophils # (Auto) 0.0 TH/MM3 Basophils # (Auto) 0.1 TH/MM3 CBC Comment AUTO DIFF Differential Total Cells 100 Counted Neutrophils % (Manual) 66 % Band Neutrophils % 14 % Lymphocytes % 14 % Monocytes % 5 % Basophils % 1 % Neutrophils # (Manual) 7.2 TH/MM3 Differential Comment FINAL DIFF MANUAL Platelet Estimate NORMAL Platelet Morphology Comment NORMAL Laboratory Tests Test 01/19/17 01/19/17 01/19/17 01/20/17 07:17 16:36 20:10 05:47 Sodium Level 133 MEQ/L 136 MEQ/L Potassium Level 5.0 MEQ/L 5.5 MEQ/L Chloride Level 99 MEQ/L 101 MEQ/L Carbon Dioxide Level 22.4 MEQ/L 23.8 MEQ/L Anion Gap 12 MEQ/L 11 MEQ/L Blood Urea Nitrogen 50 MG/DL 51 MG/DL Creatinine 7.27 MG/DL 7.20 MG/DL Estimat Glomerular Filtration 9 ML/MIN 9 ML/MIN Rate Random Glucose 301 MG/DL 190 MG/DL Calcium Level 7.7 MG/DL 8.1 MG/DL Lactic Acid Level 3.5 mmol/L 3.5 mmol/L Procalcitonin 5.15 ng/mL C-Reactive Protein 1.30 MG/DL Lipase 813 U/L Total Bilirubin 0.3 MG/DL Aspartate Amino Transf 37 U/L (AST/SGOT) Alanine Aminotransferase 35 U/L (ALT/SGPT) Alkaline Phosphatase 292 U/L Total Protein 5.1 GM/DL Albumin 1.6 GM/DL Microbiology Date/Time Procedure Status Source Growth 01/19/17 11:30 Aerobic Blood Culture - Preliminary Resulted Blood Peripheral NO GROWTH IN 1 DAY 01/19/17 11:30 Anaerobic Blood Culture - Preliminary Resulted Blood Peripheral NO GROWTH IN 1 DAY 01/19/17 11:45 Aerobic Blood Culture - Preliminary Resulted Blood Peripheral NO GROWTH IN 1 DAY 01/19/17 11:45 Anaerobic Blood Culture - Preliminary Resulted Blood Peripheral NO GROWTH IN 1 DAY Imaging Last Impressions Lung Scan-V Nuclear Medicine 01/16/17 0000 Signed Impressions: Service Date/Time: Monday, January 16, 2017 15:38 - CONCLUSION: Low probability for pulmonary embolism. Edgardo Goldstein MD FACR Lower Extremity Ultrasound 01/16/17 0000 Signed Impressions: Service Date/Time: Monday, January 16, 2017 08:17 - CONCLUSION: Normal examination. Satinder Khanna Jr., MD Chest X-Ray 01/15/172056 Signed Impressions: Service Date/Time: January 21:26 - CONCLUSION: No acute disease. Juan Ramirez MD Abdomen/Pelvis CT 01/15/17 0000 Signed Impressions: Service Date/Time: January 22:54 - CONCLUSION: 1. Patient is on peritoneal dialysis. There is small moderate ascites, increased from before. No loculated fluid. 2. Decreased gastric wall thickening, now mild. Nasogastric tube has been removed. 3. No obstruction or perceptible acute inflammatory changes seen of the gastrointestinal tract. Juan Mercado MD Physical Exam CONSTITUTIONAL/GENERAL: This is an adequately nourished patient, in no apparent distress. TUBES/LINES/DRAINS: SKIN: No jaundice, rashes, or lesions. . Skin temperature appropriate. Not diaphoretic. HEAD: Atraumatic. Normocephalic. EYES: Pupils equal and round and reactive. Extraocular motions intact. No scleral icterus. No injection or drainage. Fundi not examined. ENT: Hearing grossly normal. Nose without bleeding or purulent drainage. Oral mucosae moist without visible erythema, exudates, masses, or lesions. Dentition is very poor lower jaw, upper dentures NECK: Trachea midline. Supple, nontender. No palpable thyroid enlargement or nodularity. CARDIOVASCULAR: Regular rate and rhythm without murmurs, gallops, or rubs. No JVD. Peripheral pulses symmetric. RESPIRATORY/CHEST: Symmetric, unlabored respirations. Clear to auscultation. Breath sounds equal bilaterally. No wheezes, rales, or rhonchi. GASTROINTESTINAL: Abdomen soft, non-tender, mildly distended. No hepato- splenomegaly, or palpable masses. No guarding. Bowel sounds present. Tenk[place] in place -site [place] GENITOURINARY: Without palpable bladder distension. MUSCULOSKELETAL: Extremities without clubbing, cyanosis, or edema. No joint tenderness or effusion noted. No calf tenderness. No mottling or clubbing. No wounds on the feet R little finger - sp part amputation, traumatic - healed LYMPHATICS: No palpable cervical or supraclavicular adenopathy. NEUROLOGICAL: Awake and alert. Motor and sensory grossly within normal limits. Follows commands. Clear speech. Moves all extremities. PSYCHIATRIC: No obvious anxiety/depression. no apparent hallucinations or other psychotic thought process. Assessment & Plan Remarks FUO, lactic acidosis - No e/o PD cath infx per clx - BC negative - ongoing fever - procalcitonine is high, cw infectious process Poorly controlled DM Immunosuppressed: high dose d sterroids (pt is unaware for what disease and for how long he is taking it "I just take what the doctor tells me"): still unclear the indication for prednisone HCV Elevated lipase, but no abd pain to suggest pancreatitis and no CT changes REC's: cont cefepime, vanco fu repeat BC ESR, CRP. procalcitonine fu 2 D echo fu CMV, crypto AG HIV testing ( pt was conseled and is agreable for testing) - repeat PD cath fluid clx, include AFB, fungal Tosha Mitchell MD Jan 20, 2017 13:37 Tosha Mitchell MD Jan 20, 2017 13:37
[2017-01-20] MEDS: CEFEPIME INJ 1,000 MG in SODIUM CHLORIDE 0.9% INJ 100 ML IV SCH (14:04)
[2017-01-20] MEDS ORDERED: VANCOMYCIN INJ 1,000 MG in SODIUM CHLOR 0.9% 250 ML INJ 250 ML IV ONE (15:00)
--- NOTE | 2017-01-20 17:23 | ECHRPT ---
Indication: Limited for Vegetations CONCLUSIONS Mobile echodensities is noted on the mitral valve consistent with vegetation. They appear several mm on both leaflets. BP: 114 / 77 HR: 110 Rhythm: Other MEASUREMENTS (Male / Female) Normal Values Technical Quality:Technically difficult study DOPPLER TR Peak Velocity 153.0 cm/s TR Peak Gradient 9.4 mmHg FINDINGS LEFT VENTRICLE Normal left ventricular size and wall thickness. The left ventricular systolic function is normal wi th an estimated ejection fraction in the range of 60-65%. MITRAL VALVE Mobile echodensities is noted on the mitral valve consistent with vegetation. They appear several mm on both leaflets. Flory Mc MD, FACC (Electronically Signed) Final Date:20 January 2017 17:22
[2017-01-20 19:37] LABS: PERITONEAL LYMPHS 10 %; PERITONEAL MONOS 43 %; PERITONEAL POLYS(SEGS) 47 %; PERITONEAL WBC 608 /MM3 (0-10)
[2017-01-20 21:56] LABS: BICARBONATE 18.8 MEQ/L (21.0-32.0); POTASSIUM 5.9 MEQ/L (3.5-5.1)
[2017-01-21] VITALS (7 sets, daily range): BP systolic 116–141; BP diastolic 76–86; PULSE 97–117; RESP 16–18; TEMP 97.9–98.5; O2SAT 100
[2017-01-21] MEDS: CHLORHEXIDINE GLUCONATE 2 % 1 PACK (2 CLOTHS) TOP SCH (04:00)
[2017-01-21] MEDS: SODIUM CHLOR 0.9% 1000 ML INJ 1,000 ML IV SCH ×3 (04:15→22:54)
[2017-01-21] MEDS: LOW DOSE INSULIN NOVOLIN REGULAR SUPPLEMENTAL SCALE SQ SCH ×4 (06:34→21:22)
[2017-01-21 08:18] LABS: NUMBER OF ARTERIAL PUNCTURES 1
[2017-01-21] MEDS: THIAMINE HCL 100 MG TAB PO SCH (09:00)
[2017-01-21] MEDS: SODIUM CHLORIDE 0.9% FLUSH 10 ML FLUSH SCH ×2 (09:00→21:00)
[2017-01-21] MEDS: INSULIN DETEMIR 100 UNITS/ML VIAL SQ SCH ×2 (09:00→21:21)
[2017-01-21] MEDS: CALCITRIOL 0.25 MCG CAP PO SCH (09:34)
[2017-01-21] MEDS: CALCIUM ACETATE 667 MG CAP PO SCH ×3 (09:34→18:00)
[2017-01-21] MEDS: DOCUSATE SODIUM 50 MG/SENNA 8.6 MG TAB PO SCH ×2 (09:34→21:00)
--- NOTE | 2017-01-21 09:34 | HHI.PR ---
Subjective Remarks The patient was resting comfortably in bed. He was sneezing. He said he was feeling better. He denied any abdominal pain. He says he has been ambulating. She denies any problems with his dialysis. Objective Vitals Vital Signs Date Time Temp Pulse Resp B/P Pulse Ox O2 Delivery O2 Flow Rate FiO2 01/21/17 08:00 98.0 97 18 139/86 100 01/21/17 04:00 97.9 102 18 130/82 100 01/21/17 00:00 98.0 103 16 116/78 100 01/20/17 20:28 107 01/20/17 20:00 98.0 100 18 117/84 100 01/20/17 19:25 Room Air 01/20/17 16:00 Room Air 01/20/17 16:00 98.5 93 20 120/68 100 01/20/17 12:00 Room Air 01/20/17 11:54 98.9 84 18 106/59 100 I/O 01/20/17 01/20/17 01/20/17 01/21/17 01/21/17 01/21/17 07:00 15:00 23:00 07:00 15:00 23:00 Intake Total 240 ml 360 ml 240 ml 240 ml Output Total 275 ml 852 ml 625 ml 400 ml 1057 ml Balance -35 ml -492 ml -385 ml -160 ml -1057 ml Intake Oral 240 ml 360 ml 240 ml 240 ml Output Urine Total 275 ml 400 ml 625 ml 400 ml Peritoneal Fluid 1057 ml Hemodialysis 452 ml # Bowel Movements 2 0 0 Result Diagram: 01/20/17 0547 01/20/172014 Imaging Last Impressions Lung Scan-VQ Nuclear Medicine 01/16/17 0000 Signed Impressions: Service Date/Time: Monday, January 16, 2017 15:38 - CONCLUSION: Low probability for pulmonary embolism. Edgardo Goldstein MD FACR Lower Extremity Ultrasound 01/16/17 0000 Signed Impressions: Service Date/Time: Monday, January 16, 2017 08:17 - CONCLUSION: Normal examination. Satinder Khanna Jr., MD Chest X-Ray 01/15/172056 Signed Impressions: Service Date/Time: January 21:26 - CONCLUSION: No acute disease. Juan Ramirez MD Abdomen/Pelvis CT 01/15/17 0000 Signed Impressions: Service Date/Time: January 22:54 - CONCLUSION: 1. Patient is on peritoneal dialysis. There is small moderate ascites, increased from before. No loculated fluid. 2. Decreased gastric wall thickening, now mild. Nasogastric tube has been removed. 3. No obstruction or perceptible acute inflammatory changes seen of the gastrointestinal tract. Juan Mercado MD Objective Remarks GENERAL: This is a well-nourished, well-developed patient, in no apparent distress. SKIN: No rashes, warm and dry HEAD: Atraumatic. Normocephalic. EYES: Pupils equal round and reactive. Extraocular motions intact. No scleral icterus. ENT: Nose without bleeding, or drainage, Airway patent. NECK: Trachea midline. Supple CARDIOVASCULAR: Tachycardic without murmurs, gallops or rubs. RESPIRATORY: Clear to auscultation bilaterally. No wheezing, rales or rhonchi. GASTROINTESTINAL: Abdomen soft, non-tender, nondistended. Positive bowel sounds. MUSCULOSKELETAL: Extremities without clubbing, cyanosis, edema. Pedal pulses appreciated. NEUROLOGICAL: Awake and alert. Moves all extremity. Normal speech. No focal neurological deficit. PSYCH: Slightly flattened affect. Medications and IVs Current Medications Medications (Trade) Dose Ordered Sig/Issac Route Start Time Stop Time Status Last Admin (NS Flush) 10 ml UNSCH PRN IV FLUSH 01/15/17 22:30 (NS Flush) 2 ml UNSCH PRN .XX 01/15/17 23:30 (NS Flush) 2 ml BID .XX 01/16/17 09:00 01/20/17 21:00 (Tylenol) 650 mg Q6H PRN PO 01/15/17 23:30 01/20/17 06:20 (Protonix Inj) 40 mg DAILY IV 01/16/17 09:00 01/20/17 07:56 (Zofran Inj) 4 mg Q6H PRN IV 01/15/17 23:30 01/16/17 04:51 Miscellaneous Information 1 Q361D XX 01/15/17 23:30 01/15/17 23:30 (Chlorhexidine 2% Cloth) Taper DAILY@04 TOP 01/16/17 04:00 01/12/18 03:59 01/18/17 04:00 (Chlorhexidine 2% Cloth) 3 pack UNSCH PRN TOP 01/15/17 23:30 (Jessica-Colace) 1 tab BID PO 01/16/17 09:00 01/20/17 00:30 (Milk Of Magnesia Liq) 30 ml Q12H PRN PO 01/15/17 23:30 (Senokot) 17.2 mg Q12H PRN PO 01/15/17 23:30 (Dulcolax Supp) 10 mg DAILY PRN RECTAL 01/15/17 23:30 (Lactulose Liq) 30 ml DAILY PRN PO 01/15/17 23:30 (Norvasc) 5 mg BID PO 01/16/17 09:00 Hold 01/20/17 00:29 (Rocaltrol) 0.25 mcg DAILY PO 01/16/17 09:00 01/20/17 07:55 (Phoslo) 667 mg TID PO 01/16/17 09:00 01/20/17 13:33 (Catapres) 0.3 mg TID PO 01/16/17 09:00 Hold 01/19/17 17:14 (Trandate Inj) 10 mg Q4H PRN IV PUSH 01/16/17 00:15 01/16/17 01:32 (Heparin Inj) 5,000 units Q12HR SQ 01/16/17 09:00 01/20/17 22:12 ([place] 5-325 Mg) 1 tab Q6H PRN PO 01/16/17 05:15 (Morphine Inj) 2 mg Q3H PRN IV PUSH 01/16/17 05:15 (KCl) 20 meq Q12HR PO 01/16/17 10:45 Hold 01/20/17 00:29 (D50w (Vial) Inj) 50 ml UNSCH PRN IV 01/19/17 11:15 (Glucagon Inj) 1 mg UNSCH PRN OTHER 01/19/17 11:15 Thiamine HCl 100 mg 100 mg DAILY PO 01/20/17 09:00 01/20/17 07:55 Sodium Chloride 1,000 ml @ 100 mls/hr Q10H IV 01/20/17 08:15 01/21/17 04:15 (Maxipime Inj/NS Inj) 100 ml @ 200 mls/hr Q24H IV 01/20/17 14:00 6/13/17 14:04 (Levemir Inj) 5 units HS SQ 01/21/17 21:00 UNV (Levemir Inj) 7 units DAILY SQ 01/22/17 09:00 UNV A/P Assessment and Plan Mitral valve endocarditis Echo revealed evidence of vegetation on the mitral valve. Blood cultures with no growth at this time. - continue vancomycin and cefepime. - follow up with infectious disease. Acute respiratory alkalosis/ COPD Alkalosis likely compensatory for metabolic acidosis. Pt was previously on prednisone, unclear if secondary to COPD. He smokes a pack every few days. Breathing is stable at this point. S/p prednisone. - smoking cessation instruction. - oxygen as needed. - encourage ambulation. Hypertension The pt has been hypotensive. Stable at this time. - hold clonidine and amlodipine. - fluids. SBP/ Elevated lipase Presented with abdominal pain, vomiting and diarrhea. CT abdomen and pelvis noncontrast with normal gallbladder, liver, pancreas. Triglyceride level elevated but not contributory, 290. No prior h/o pancreatitis. There is thickening of stomach noted on CT abd/pelvis and may need EGD at some point though could be done as outpatient. Peritoneal fluid initially negative for SBP , but repeat sample indicative of SBP. Symptoms appear to be resolved. Still spiking fevers. - Protonix 40 mg PO daily for stress ulcer prophylaxis. - antibiotics per ID. - trend lipase level. ESRD/ Hyperkalemia On peritoneal dialysis. - PD per Dr. Sosa. - d/c KCl and give Kayexalate as needed. Lactic acidemia ? secondary to poor clearance vs sepsis. Unknown if PD had lactate buffer. - Monitor serial lactic acid. - IV vanc/ Fortaz per ID. - IVFs. Chronic anemia Likely s/t chronic disease. - follow CBC and transfuse as needed. Diabetes mellitus Poorly controlled. - medium dose insulin sliding scale. Increase long-acting to Levemir 7 units daily, 5 units HS. Secondary hyperparathyroidism S/t renal disease. - Calcitriol 0.25 mg po daily, calcium acetate 667 mg po tid. PPx: Heparin Discharge Planning Awaiting clinical improvement Saud German DO Jan 21, 2017 09:34
[2017-01-21] MEDS: HEPARIN SODIUM - SQ 10,000 UNITS/ML VIAL SQ SCH ×2 (09:35→21:21)
[2017-01-21] MEDS: PANTOPRAZOLE SODIUM 40 MG VIAL IV SCH (09:35)
[2017-01-21 09:44] LABS: MEAN CELL VOLUME 92.5 FL (80.0-100.0); MEAN CORPUSCULAR HEMOGLOBIN 29.7 PG (27.0-34.0); MEAN CORPUSCULAR HGB CONC 32.1 % (32.0-36.0); PLATELET COUNT 196 TH/MM3 (150-450); RED CELL DISTRIBUTION WIDTH 15.8 % (11.6-17.2); REVIEW FLAG FINAL; WHITE BLOOD COUNT 13.1 TH/MM3 (4.0-11.0)
[2017-01-21 10:21] LABS: BICARBONATE 19.4 MEQ/L (21.0-32.0); POTASSIUM 4.6 MEQ/L (3.5-5.1)
--- NOTE | 2017-01-21 11:47 | HHI.IDPN ---
Subjective Subjective Remarks feels better afebrile 2D echo with mitral valve vegetations blood clx negative PD fluid now cw peritonitis > 300 ANC (>600 WBC, 45% PMNs) denies abd pain no fever, chills Antibiotics vanco iv cefepime iv Allergies: Coded Allergies: Aspirin (Unverified Allergy, Unknown, 01/15/17) HEP C Objective . Vital Signs Date Time Temp Pulse Resp B/P Pulse Ox O2 Delivery O2 Flow Rate FiO2 01/21/17 09:00 114 01/21/17 08:00 98.0 97 18 139/86 100 01/21/17 08:00 Room Air 01/21/17 04:00 97.9 102 18 130/82 100 01/21/17 00:00 98.0 103 16 116/78 100 01/20/17 20:28 107 01/20/17 20:00 98.0 100 18 117/84 100 01/20/17 19:25 Room Air 01/20/17 16:00 Room Air 01/20/17 16:00 98.5 93 20 120/68 100 01/20/17 12:00 Room Air 01/20/17 11:54 98.9 84 18 106/59 100 01/20/17 01/20/17 01/21/17 15:00 23:00 07:00 Intake Total 360 ml 240 ml 240 ml Output Total 852 ml 625 ml 400 ml Balance -492 ml -385 ml -160 ml Intake Oral 360 ml 240 ml 240 ml Output Urine Total 400 ml 625 ml 400 ml Hemodialysis 452 ml # Bowel Movements 2 0 0 . Laboratory Tests Test 01/19/17 01/20/17 01/21/17 16:36 05:47 08:55 Erythrocyte Sedimentation Rate 84 mm/hr White Blood Count 9.0 TH/MM3 13.1 TH/MM3 Red Blood Count 2.59 MIL/MM3 2.60 MIL/MM3 Hemoglobin 7.9 GM/DL 7.7 GM/DL Hematocrit 23.9 % 24.0 % Mean Corpuscular Volume 92.2 FL 92.5 FL Mean Corpuscular Hemoglobin 30.4 PG 29.7 PG Mean Corpuscular Hemoglobin 33.0 % 32.1 % Concent Red Cell Distribution Width 15.9 % 15.8 % Platelet Count 167 TH/MM3 196 TH/MM3 Mean Platelet Volume 9.0 FL 9.0 FL Neutrophils (%) (Auto) 70.6 % Lymphocytes (%) (Auto) 18.1 % Monocytes (%) (Auto) 10.1 % Eosinophils (%) (Auto) 0.3 % Basophils (%) (Auto) 0.9 % Neutrophils # (Auto) 6.4 TH/MM3 Lymphocytes # (Auto) 1.6 TH/MM3 Monocytes # (Auto) 0.9 TH/MM3 Eosinophils # (Auto) 0.0 TH/MM3 Basophils # (Auto) 0.1 TH/MM3 CBC Comment AUTO DIFF Differential Total Cells 100 Counted Neutrophils % (Manual) 66 % Band Neutrophils % 14 % Lymphocytes % 14 % Monocytes % 5 % Basophils % 1 % Neutrophils # (Manual) 7.2 TH/MM3 Differential Comment FINAL DIFF MANUAL Platelet Estimate NORMAL Platelet Morphology Comment NORMAL Laboratory Tests Test 01/19/17 01/19/17 01/20/17 01/20/17 16:36 20:10 05:47 20:15 Lactic Acid Level 3.5 mmol/L 3.5 mmol/L Procalcitonin 5.15 ng/mL C-Reactive Protein 1.30 MG/DL Lipase 813 U/L Sodium Level 136 MEQ/L 131 MEQ/L Potassium Level 5.5 MEQ/L 5.9 MEQ/L Chloride Level 101 MEQ/L 99 MEQ/L Carbon Dioxide Level 23.8 MEQ/L 18.8 MEQ/L Anion Gap 11 MEQ/L 13 MEQ/L Blood Urea Nitrogen 51 MG/DL 50 MG/DL Creatinine 7.20 MG/DL 7.10 MG/DL Estimat Glomerular Filtration 9 ML/MIN 10 ML/MIN Rate Random Glucose 190 MG/DL 383 MG/DL Calcium Level 8.1 MG/DL 8.1 MG/DL Total Bilirubin 0.3 MG/DL Aspartate Amino Transf 37 U/L (AST/SGOT) Alanine Aminotransferase 35 U/L (ALT/SGPT) Alkaline Phosphatase 292 U/L Total Protein 5.1 GM/DL Albumin 1.6 GM/DL Test 01/21/17 01/21/17 08:53 08:55 Sodium Level 136 MEQ/L Potassium Level 4.6 MEQ/L Chloride Level 102 MEQ/L Carbon Dioxide Level 19.4 MEQ/L Anion Gap 15 MEQ/L Blood Urea Nitrogen 48 MG/DL Creatinine 6.60 MG/DL Estimat Glomerular Filtration 10 ML/MIN Rate Random Glucose 110 MG/DL Calcium Level 8.2 MG/DL Random Cortisol 9.4 MCG/DL Microbiology Date/Time Procedure Status Source Growth 01/19/17 11:30 Aerobic Blood Culture - Preliminary Resulted Blood Peripheral NO GROWTH IN 2 DAYS 01/19/17 11:30 Anaerobic Blood Culture - Preliminary Resulted Blood Peripheral NO GROWTH IN 2 DAYS 01/19/17 11:45 Aerobic Blood Culture - Preliminary Resulted Blood Peripheral NO GROWTH IN 2 DAYS 01/19/17 11:45 Anaerobic Blood Culture - Preliminary Resulted Blood Peripheral NO GROWTH IN 2 DAYS 01/20/17 17:20 Gram Stain - Final Resulted Fluid Peritoneal Fluid 01/20/17 17:20 Body Fluid Culture Resulted Fluid Peritoneal Fluid Pending 01/20/17 17:20 Acid Fast Stain Received Fluid Peritoneal Fluid Pending 01/20/17 17:20 Mycobacterial Culture Received Fluid Peritoneal Fluid Pending 01/20/17 17:20 Fungal Smear - Final Resulted Fluid Peritoneal Fluid NO FUNGAL ELEMENTS SEEN. 01/20/17 17:20 Fungal Culture Resulted Fluid Peritoneal Fluid Pending Imaging Last Impressions Lung Scan-V Nuclear Medicine 01/16/17 0000 Signed Impressions: Service Date/Time: Monday, January 16, 2017 15:38 - CONCLUSION: Low probability for pulmonary embolism. Edgardo Goldstein MD FACR Lower Extremity Ultrasound 01/16/17 0000 Signed Impressions: Service Date/Time: Monday, January 16, 2017 08:17 - CONCLUSION: Normal examination. Satinder Khanna Jr., MD Chest X-Ray 01/15/172056 Signed Impressions: Service Date/Time: January 21:26 - CONCLUSION: No acute disease. Juan Ramirez MD Abdomen/Pelvis CT 01/15/17 0000 Signed Impressions: Service Date/Time: January 22:54 - CONCLUSION: 1. Patient is on peritoneal dialysis. There is small moderate ascites, increased from before. No loculated fluid. 2. Decreased gastric wall thickening, now mild. Nasogastric tube has been removed. 3. No obstruction or perceptible acute inflammatory changes seen of the gastrointestinal tract. Juan Mercado MD Physical Exam CONSTITUTIONAL/GENERAL: This is an adequately nourished patient, in no apparent distress. TUBES/LINES/DRAINS: SKIN: No jaundice, rashes, or lesions. . Skin temperature appropriate. Not diaphoretic. HEAD: Atraumatic. Normocephalic. EYES: Pupils equal and round and reactive. Extraocular motions intact. No scleral icterus. No injection or drainage. Fundi not examined. ENT: Hearing grossly normal. Nose without bleeding or purulent drainage. Oral mucosae moist without visible erythema, exudates, masses, or lesions. Dentition is very poor lower jaw, upper dentures NECK: Trachea midline. Supple, nontender. No palpable thyroid enlargement or nodularity. CARDIOVASCULAR: Regular rate and rhythm without murmurs, gallops, or rubs. No JVD. Peripheral pulses symmetric. RESPIRATORY/CHEST: Symmetric, unlabored respirations. Clear to auscultation. Breath sounds equal bilaterally. No wheezes, rales, or rhonchi. GASTROINTESTINAL: Abdomen soft, non-tender, mildly distended. No hepato- splenomegaly, or palpable masses. No guarding. Bowel sounds present. Tenkoff in place -site [place] GENITOURINARY: Without palpable bladder distension. MUSCULOSKELETAL: Extremities without clubbing, cyanosis, or edema. No joint tenderness or effusion noted. No calf tenderness. No mottling or clubbing. No wounds on the feet R little finger - sp part amputation, traumatic - healed LYMPHATICS: No palpable cervical or supraclavicular adenopathy. NEUROLOGICAL: Awake and alert. Motor and sensory grossly within normal limits. Follows commands. Clear speech. Moves all extremities. PSYCHIATRIC: No obvious anxiety/depression. no apparent hallucinations or other psychotic thought process. Assessment & Plan Remarks FUO, lactic acidosis -- suspected mitral valve endocarditis, clx negative - fever resolved with vanco, cefepime - denies cats/birds/cattle exposure PD related peritonitis, clx P Poorly controlled DM Immunosuppressed: high dose d sterroids (pt is unaware for what disease and for how long he is taking it "I just take what the doctor tells me"): still unclear the indication for prednisone HCV Elevated lipase, but no abd pain to suggest pancreatitis and no CT changes REC's: cont cefepime, vanco ROBYN - fu clx fu CMV, crypto AG fu HIV results - fu repeat PD cath fluid clx, include AFB, fungal Tosha Mitchell MD Jan 21, 2017 11:47
[2017-01-21 13:02] LABS: CRYPTOCOCCUS ANTIGEN Negative (Negative)
--- NOTE | 2017-01-21 13:10 | MB ---
cc: [facility] DATE OF CONSULTATION: 01/21/2017 HISTORY OF PRESENT ILLNESS Mr. Ramirez is a 61-year-old black male with a history of end-stage renal disease on peritoneal dialysis for the last three months. He presented with severe hyperglycemia. He CT of the abdomen and pelvis was unremarkable. The patient continues to have fevers. He was seen by the infectious disease service and a transesophageal echocardiogram was recommended to evaluate for endocarditis. The patient denies any chest pain or excessive dyspnea. PAST MEDICAL HISTORY 1. End-stage renal disease on peritoneal dialysis. 2. Hypertension. 3. Diabetes mellitus. 4. Hepatitis C. 5. Noncompliance with medical care. 6. History of Tenckhoff catheter placement. 7. Left knee surgery. MEDICATIONS 1. Insulin. 2. Protonix. 3. Vitamin-B1. 4. Jessica-Colace. 5. Rocaltrol. 6. PhosLo. 7. Subcu heparin. ALLERGIES ASPIRIN. SOCIAL HISTORY Patient is a smoker. He does not drink alcohol. FAMILY HISTORY The family history is positive for heart disease. REVIEW OF SYSTEMS Otherwise negative. PHYSICAL EXAMINATION VITAL SIGNS: Blood pressure 113/86, pulse 97 and regular. HEENT: Negative. NECK: 2+ carotid upstrokes. No bruits. LUNGS: Clear. HEART: Regular with no murmur or gallop. ABDOMEN: Soft, nontender. No bruits. EXTREMITIES: Without edema. 2+ distal pulses. Status post right little finger amputation. NEUROLOGIC: Grossly nonfocal. EKG EKG was reviewed and showed sinus tachycardia, normal axis and mild nonspecific T-wave changes. LABORATORY Hemoglobin 7.7. Potassium 4.6. Creatinine 6.6. AST 37, ALT 35. ECHOCARDIOGRAM Echocardiogram revealed preserved left systolic function and mobile echodensity on the mitral valve consistent with vegetations on both mitral valve leaflets. DIAGNOSIS 1. Suspected mitral valve endocarditis. 2. SBP. 3. End-stage renal disease on peritoneal dialysis. 4. COPD. 5. Hypertension. 6. Anemia. 7. Diabetes mellitus. DISPOSITION Mr. Ramirez will undergo a transesophageal echocardiogram to evaluate his mitral valve. His transthoracic echocardiogram was suggestive of mitral valve vegetations. He has had no bacteremia. I recommend to continue antibiotic therapy as outlined by the infectious disease service. The patient understands the risks and benefits of the transesophageal echocardiogram and wishes to proceed. MD MIRNA Lai /12:51 PM /1:01 PM [facility]
[2017-01-21] MEDS: CEFEPIME INJ 1,000 MG in SODIUM CHLORIDE 0.9% INJ 100 ML IV SCH (14:45)
[2017-01-21] MEDS ORDERED: POVIDONE IODINE 5% (ANTISEPSIS KIT) 4 APPLICATIONS EACH NARE PRN (16:15)
[2017-01-21] MEDS ORDERED: INSULIN HUMAN REGULAR 1,000 UNITS/10 ML VIAL SQ PRN (16:15)
[2017-01-21] MEDS ORDERED: CHLORHEXIDINE GLUCONATE 2 % 1 PACK (2 CLOTHS) TOPICAL PRN (16:15)
[2017-01-21] MEDS ORDERED: SODIUM CHLORID 0.9% 500 ML IV PRN (16:15)
[2017-01-21] MEDS ORDERED: METOPROLOL TARTRATE 25 MG TAB PO PRN (16:15)
[2017-01-21] MEDS ORDERED: LACTATED RINGER'S 1000 ML IV PRN (16:15)
--- NOTE | 2017-01-21 17:59 | HHI.NPPN ---
Subjective History of Present Illness 61-year-old black male with history of end-stage renal disease, hypertension, new onset of diabetes he was admitted last time with severe hyperglycemia, he was discharge home and he said he did not know how to take insulin and has not taken insulin him back with some abdominal pain, hyperglycemia and received peritoneal dialysis culture has been pending total WBC count was 120 with only 8 % neutrophils. Additional Remarks Patient is alert, no abd. pain, feeling better, eating well, no complain. Review of Systems General Constitutional: Fatigue Cardiovascular Cardiac: AGUILAR Objective Data Data 01/20/17 01/21/17 19:00 07:00 Intake Total 360 ml 480 ml Output Total 852 ml 1025 ml Balance -492 ml -545 ml Intake Oral 360 ml 480 ml Output Urine Total 400 ml 1025 ml Hemodialysis 452 ml # Bowel Movements 2 0 Vital Signs Date Time Temp Pulse Resp B/P Pulse Ox O2 Delivery O2 Flow Rate FiO2 01/21/17 12:00 98.3 106 18 133/76 100 01/21/17 09:00 114 01/21/17 08:00 98.0 97 18 139/86 100 01/21/17 08:00 Room Air 01/21/17 04:00 97.9 102 18 130/82 100 01/21/17 00:00 98.0 103 16 116/78 100 01/20/17 20:28 107 01/20/17 20:00 98.0 100 18 117/84 100 01/20/17 19:25 Room Air -: 01/21/17 0855 01/21/17 0853 Physical Exam General Appearance: Well Nourished, No Acute Distress, Comfortable Eyes Eye Exam: Pupils Equal Throat Throat Exam: Oral Mucosa [place] & Moist Neck Neck Exam: Neck Supple Pulmonary Resp Exam: Breath Sounds Equal, No Distress, Decreased Bases Cardiology CV Exam: Regular, Normal Sinus Rhythm Gastrointestinal/Abdomen GI Exam: Soft, Non-Tender, Bowel Sounds Present, Distended (with PD catheter in place.) Extremeties Extremities Exam: Trace Edema Neurologic Neuro Exam: Alert, Awake, Oriented Psychiatric Psych Exam: Appropriate Responses Assessment/Plan Problem List: (1) ESRD (end stage renal disease) Plan: Patient is on peritoneal dialysis, he has Lactic acidosis less then 4 sepsis ID following since febrile restarted antibiotics Vanco/Cefepime Endocarditis suspected MV vegetation, ROBYN ordered culture negative BC so far negative repeat PD WBC higher but he denies symptoms, culture negative, await fungal and Mycobacterial culture given Epogen (2) Lactic acidosis Plan: as above (3) HTN (hypertension) Plan: Continue to monitor (4) Diabetic hyperosmolar non-ketotic state Plan: Blood sugar is better with insulin Problem Qualifiers (1) HTN (hypertension): Qualified Code: I10 - Essential hypertension Ned Sosa MD Jan 21, 2017 17:58
[2017-01-22] VITALS (8 sets, daily range): BP systolic 147–171; BP diastolic 78–96; PULSE 113–126; RESP 18–20; TEMP 98.7–100.6; O2SAT 98–100
[2017-01-22] MEDS: CHLORHEXIDINE GLUCONATE 2 % 1 PACK (2 CLOTHS) TOP SCH (04:00)
[2017-01-22] MEDS: LOW DOSE INSULIN NOVOLIN REGULAR SUPPLEMENTAL SCALE SQ SCH ×4 (06:00→21:32)
[2017-01-22 08:30] LABS: MEAN CELL VOLUME 93.1 FL (80.0-100.0); MEAN CORPUSCULAR HEMOGLOBIN 29.9 PG (27.0-34.0); MEAN CORPUSCULAR HGB CONC 32.2 % (32.0-36.0); PLATELET COUNT 229 TH/MM3 (150-450); RED BLOOD COUNT 2.47 MIL/MM3 (4.50-5.90); RED CELL DISTRIBUTION WIDTH 16.2 % (11.6-17.2); REVIEW FLAG FINAL; WHITE BLOOD COUNT 12.8 TH/MM3 (4.0-11.0)
[2017-01-22] MEDS: PANTOPRAZOLE SOD 40 MG DELAYED RELEASE TAB PO SCH (08:42)
[2017-01-22] MEDS: HEPARIN SODIUM - SQ 10,000 UNITS/ML VIAL SQ SCH ×2 (08:42→21:24)
[2017-01-22] MEDS: THIAMINE HCL 100 MG TAB PO SCH (08:42)
[2017-01-22] MEDS: CALCIUM ACETATE 667 MG CAP PO SCH ×3 (08:42→16:01)
[2017-01-22] MEDS: CALCITRIOL 0.25 MCG CAP PO SCH (08:43)
[2017-01-22] MEDS: INSULIN DETEMIR 100 UNITS/ML VIAL SQ SCH ×2 (08:58→21:31)
[2017-01-22] MEDS: SODIUM CHLOR 0.9% 1000 ML INJ 1,000 ML IV SCH ×2 (08:58→20:15)
[2017-01-22] MEDS: DOCUSATE SODIUM 50 MG/SENNA 8.6 MG TAB PO SCH ×2 (08:59→21:00)
[2017-01-22] MEDS: SODIUM CHLORIDE 0.9% FLUSH 10 ML FLUSH SCH ×2 (08:59→21:25)
[2017-01-22 09:00] LABS: BICARBONATE 19.8 MEQ/L (21.0-32.0); POTASSIUM 4.4 MEQ/L (3.5-5.1)
[2017-01-22] MEDS ORDERED: INSULIN DETEMIR 100 UNITS/ML VIAL SQ SCH (09:00)
--- NOTE | 2017-01-22 11:56 | HHI.PR ---
Subjective Remarks The patient says that he went for the ROBYN yesterday and reports that it was normal. He has no acute complaints at this time. He is breathing comfortably. He has no abdominal pain. He has been ambulating. Objective Vitals Vital Signs Date Time Temp Pulse Resp B/P Pulse Ox O2 Delivery O2 Flow Rate FiO2 01/22/17 08:00 100.3 122 18 149/83 100 01/22/17 08:00 Room Air 01/22/17 04:00 98.9 124 18 147/78 100 01/22/17 00:00 99.3 123 20 160/96 100 01/21/17 20:28 116 01/21/17 20:00 98.5 117 18 141/79 100 01/21/17 19:23 Room Air 01/21/17 12:00 98.3 106 18 133/76 100 I/O 01/21/17 01/21/17 01/21/17 01/22/17 01/22/17 01/22/17 07:00 15:00 23:00 07:00 15:00 23:00 Intake Total 240 ml 1378 ml Output Total 400 ml 1557 ml 1200 ml Balance -160 ml -179 ml -1200 ml Intake Oral 240 ml 480 ml IV Total 898 ml Output Urine Total 400 ml 500 ml 1200 ml Peritoneal Fluid 1057 ml # Bowel Movements 0 1 Result Diagram: 01/22/17 0734 01/22/17 0734 Imaging Last Impressions Lung Scan-VQ Nuclear Medicine 01/16/17 0000 Signed Impressions: Service Date/Time: Monday, January 16, 2017 15:38 - CONCLUSION: Low probability for pulmonary embolism. Edgardo Goldstein MD FACR Lower Extremity Ultrasound 01/16/17 0000 Signed Impressions: Service Date/Time: Monday, January 16, 2017 08:17 - CONCLUSION: Normal examination. Satinder Khanna Jr., MD Chest X-Ray 01/15/172056 Signed Impressions: Service Date/Time: January 21:26 - CONCLUSION: No acute disease. Juan Ramirez MD Abdomen/Pelvis CT 01/15/17 0000 Signed Impressions: Service Date/Time: January 22:54 - CONCLUSION: 1. Patient is on peritoneal dialysis. There is small moderate ascites, increased from before. No loculated fluid. 2. Decreased gastric wall thickening, now mild. Nasogastric tube has been removed. 3. No obstruction or perceptible acute inflammatory changes seen of the gastrointestinal tract. Juan Mercado MD Objective Remarks GENERAL: This is a well-nourished, well-developed patient, in no apparent distress. SKIN: No rashes, warm and dry HEAD: Atraumatic. Normocephalic. EYES: Pupils equal round and reactive. Extraocular motions intact. No scleral icterus. ENT: Nose without bleeding, or drainage, Airway patent. NECK: Trachea midline. Supple CARDIOVASCULAR: Tachycardic without murmurs, gallops or rubs. RESPIRATORY: Clear to auscultation bilaterally. No wheezing, rales or rhonchi. GASTROINTESTINAL: Abdomen soft, non-tender, nondistended. Positive bowel sounds. MUSCULOSKELETAL: Extremities without clubbing, cyanosis, edema. Pedal pulses appreciated. NEUROLOGICAL: Awake and alert. Moves all extremity. Normal speech. No focal neurological deficit. PSYCH: Slightly flattened affect. Medications and IVs Current Medications Medications (Trade) Dose Ordered Sig/Issac Route Start Time Stop Time Status Last Admin (NS Flush) 10 ml UNSCH PRN IV FLUSH 01/15/17 22:30 (NS Flush) 2 ml UNSCH PRN .XX 01/15/17 23:30 (NS Flush) 2 ml BID .XX 01/16/17 09:00 01/21/17 09:00 (Tylenol) 650 mg Q6H PRN PO 01/15/17 23:30 01/20/17 06:20 (Zofran Inj) 4 mg Q6H PRN IV 01/15/17 23:30 01/16/17 04:51 Miscellaneous Information 1 Q361D XX 01/15/17 23:30 01/15/17 23:30 (Chlorhexidine 2% Cloth) Taper DAILY@04 TOP 01/16/17 04:00 01/12/18 03:59 01/18/17 04:00 (Chlorhexidine 2% Cloth) 3 pack UNSCH PRN TOP 01/15/17 23:30 (Jessica-Colace) 1 tab BID PO 01/16/17 09:00 01/21/17 09:34 (Milk Of Magnesia Liq) 30 ml Q12H PRN PO 01/15/17 23:30 (Senokot) 17.2 mg Q12H PRN PO 01/15/17 23:30 (Dulcolax Supp) 10 mg DAILY PRN RECTAL 01/15/17 23:30 (Lactulose Liq) 30 ml DAILY PRN PO 01/15/17 23:30 (Norvasc) 5 mg BID PO 01/16/17 09:00 Hold 01/20/17 00:29 (Rocaltrol) 0.25 mcg DAILY PO 01/16/17 09:00 01/22/17 08:43 (Phoslo) 667 mg TID PO 01/16/17 09:00 01/22/17 08:42 (Catapres) 0.3 mg TID PO 01/16/17 09:00 Hold 01/19/17 17:14 (Trandate Inj) 10 mg Q4H PRN IV PUSH 01/16/17 00:15 01/16/17 01:32 (Heparin Inj) 5,000 units Q12HR SQ 01/16/17 09:00 01/22/17 08:42 ([place] 5-325 Mg) 1 tab Q6H PRN PO 01/16/17 05:15 (Morphine Inj) 2 mg Q3H PRN IV PUSH 01/16/17 05:15 (KCl) 20 meq Q12HR PO 01/16/17 10:45 Hold 01/20/17 00:29 (D50w (Vial) Inj) 50 ml UNSCH PRN IV 01/19/17 11:15 (Glucagon Inj) 1 mg UNSCH PRN OTHER 01/19/17 11:15 Thiamine HCl 100 mg 100 mg DAILY PO 01/20/17 09:00 01/22/17 08:42 Sodium Chloride 1,000 ml @ 100 mls/hr Q10H IV 01/20/17 08:15 01/22/17 08:58 (Maxipime Inj/NS Inj) 100 ml @ 200 mls/hr Q24H IV 01/20/17 14:00 01/21/17 14:45 (Levemir Inj) 5 units HS SQ 01/21/17 21:00 01/21/17 21:21 (Levemir Inj) 7 units DAILY SQ 01/22/17 09:00 01/22/17 08:58 Pantoprazole Sodium 40 mg 40 mg DAILY PO 01/22/17 09:00 01/22/17 08:42 Lactated Ringer's 1,000 ml @ 30 mls/hr Q24H PRN IV 01/21/17 16:15 01/24/17 16:14 (NS 500 ml Inj) 500 ml @ 30 mls/hr [id number] PRN IV 01/21/17 16:15 01/24/17 16:14 A/P Assessment and Plan Mitral valve endocarditis Echo revealed evidence of vegetation on the mitral valve. Blood cultures with no growth at this time. - continue vancomycin and cefepime. - follow up with infectious disease. - Cardiology consult appreciated. ROBYN performed 01/21/17. Results pending. Acute respiratory alkalosis/ COPD Alkalosis likely compensatory for metabolic acidosis. Pt was previously on prednisone, unclear if secondary to COPD. He smokes a pack every few days. Breathing is stable at this point. S/p prednisone. - smoking cessation instruction. - oxygen as needed. - encourage ambulation. Hypertension The pt has been hypotensive, now hypertensive. - hold clonidine and resume amlodipine. SBP/ Elevated lipase Presented with abdominal pain, vomiting and diarrhea. CT abdomen and pelvis noncontrast with normal gallbladder, liver, pancreas. Triglyceride level elevated but not contributory, 290. No prior h/o pancreatitis. There is thickening of stomach noted on CT abd/pelvis and may need EGD at some point though could be done as outpatient. Peritoneal fluid initially negative for SBP , but repeat sample indicative of SBP. Symptoms appear to be resolved. Still spiking fevers. - Protonix 40 mg PO daily for stress ulcer prophylaxis. - antibiotics per ID. - trend lipase level. ESRD/ Hyperkalemia On peritoneal dialysis. - PD per Dr. Sosa. - d/c KCl and give Kayexalate as needed. Lactic acidemia ? secondary to poor clearance vs sepsis. Unknown if PD had lactate buffer. - Monitor serial lactic acid. - IV vanc/ Fortaz per ID. - IVFs. Chronic anemia Likely s/t chronic disease. - follow CBC and transfuse as needed. Diabetes mellitus Poorly controlled. - medium dose insulin sliding scale. Increase long-acting to Levemir 7 units daily, 5 units HS. Secondary hyperparathyroidism S/t renal disease. - Calcitriol 0.25 mg po daily, calcium acetate 667 mg po tid. PPx: Heparin Discharge Planning Awaiting ID clearance Saud German DO Jan 22, 2017 11:56
--- NOTE | 2017-01-22 13:34 | PD.CARD.PN ---
Subjective Subjective Remarks No CP or SOB, eating without difficulties Objective Medications Current Medications Medications (Trade) Dose Ordered Sig/Issac Route Start Time Stop Time Status Last Admin (NS Flush) 10 ml UNSCH PRN IV FLUSH 01/15/17 22:30 (NS Flush) 2 ml UNSCH PRN .XX 01/15/17 23:30 (NS Flush) 2 ml BID .XX 01/16/17 09:00 01/21/17 09:00 (Tylenol) 650 mg Q6H PRN PO 01/15/17 23:30 01/20/17 06:20 (Zofran Inj) 4 mg Q6H PRN IV 01/15/17 23:30 01/16/17 04:51 Miscellaneous Information 1 Q361D XX 01/15/17 23:30 01/15/17 23:30 (Chlorhexidine 2% Cloth) Taper DAILY@04 TOP 01/16/17 04:00 01/12/18 03:59 01/18/17 04:00 (Chlorhexidine 2% Cloth) 3 pack UNSCH PRN TOP 01/15/17 23:30 (Jessica-Colace) 1 tab BID PO 01/16/17 09:00 01/21/17 09:34 (Milk Of Magnesia Liq) 30 ml Q12H PRN PO 01/15/17 23:30 (Senokot) 17.2 mg Q12H PRN PO 01/15/17 23:30 (Dulcolax Supp) 10 mg DAILY PRN RECTAL 01/15/17 23:30 (Lactulose Liq) 30 ml DAILY PRN PO 01/15/17 23:30 (Norvasc) 5 mg BID PO 01/16/17 09:00 01/20/17 00:29 (Rocaltrol) 0.25 mcg DAILY PO 01/16/17 09:00 01/22/17 08:43 (Phoslo) 667 mg TID PO 01/16/17 09:00 01/22/17 08:42 (Catapres) 0.3 mg TID PO 01/16/17 09:00 Hold 01/19/17 17:14 (Trandate Inj) 10 mg Q4H PRN IV PUSH 01/16/17 00:15 01/16/17 01:32 (Heparin Inj) 5,000 units Q12HR SQ 01/16/17 09:00 01/22/17 08:42 ([place] 5-325 Mg) 1 tab Q6H PRN PO 01/16/17 05:15 (Morphine Inj) 2 mg Q3H PRN IV PUSH 01/16/17 05:15 (KCl) 20 meq Q12HR PO 01/16/17 10:45 Hold 01/20/17 00:29 (D50w (Vial) Inj) 50 ml UNSCH PRN IV 01/19/17 11:15 (Glucagon Inj) 1 mg UNSCH PRN OTHER 01/19/17 11:15 Thiamine HCl 100 mg 100 mg DAILY PO 01/20/17 09:00 01/22/17 08:42 Sodium Chloride 1,000 ml @ 100 mls/hr Q10H IV 01/20/17 08:15 01/22/17 08:58 (Maxipime Inj/NS Inj) 100 ml @ 200 mls/hr Q24H IV 01/20/17 14:00 01/21/17 14:45 (Levemir Inj) 5 units HS SQ 01/21/17 21:00 01/21/17 21:21 (Levemir Inj) 7 units DAILY SQ 01/22/17 09:00 01/22/17 08:58 Pantoprazole Sodium 40 mg 40 mg DAILY PO 01/22/17 09:00 01/22/17 08:42 Lactated Ringer's 1,000 ml @ 30 mls/hr Q24H PRN IV 01/21/17 16:15 01/24/17 16:14 (NS 500 ml Inj) 500 ml @ 30 mls/hr [id number] PRN IV 01/21/17 16:15 01/24/17 16:14 Vital Signs / I&O Vital Signs Date Time Temp Pulse Resp B/P Pulse Ox O2 Delivery O2 Flow Rate FiO2 01/22/17 12:00 99.7 115 18 167/84 100 01/22/17 08:00 100.3 122 18 149/83 100 01/22/17 08:00 Room Air 01/22/17 04:00 98.9 124 18 147/78 100 01/22/17 00:00 99.3 123 20 160/96 100 01/21/17 20:28 116 01/21/17 20:00 98.5 117 18 141/79 100 01/21/17 19:23 Room Air I/O 01/21/17 01/21/17 01/21/17 01/22/17 01/22/17 01/22/17 07:00 15:00 23:00 07:00 15:00 23:00 Intake Total 240 ml 1378 ml Output Total 400 ml 1557 ml 1200 ml Balance -160 ml -179 ml -1200 ml Intake Oral 240 ml 480 ml IV Total 898 ml Output Urine Total 400 ml 500 ml 1200 ml Peritoneal Fluid 1057 ml # Bowel Movements 0 1 Physical Exam GENERAL: In NAD SKIN: Warm and dry. HEAD: Normocephalic. EYES: No scleral icterus. No injection or drainage. NECK: Supple, trachea midline. No JVD or lymphadenopathy. CARDIOVASCULAR: Regular rate and rhythm without murmurs, gallops, or rubs. RESPIRATORY: Breath sounds equal bilaterally. No accessory muscle use. GASTROINTESTINAL: Abdomen soft, non-tender, nondistended. MUSCULOSKELETAL: No cyanosis, or edema. Laboratory Laboratory Tests Test 01/22/17 07:34 White Blood Count 12.8 TH/MM3 Red Blood Count 2.47 MIL/MM3 Hemoglobin 7.4 GM/DL Hematocrit 23.0 % Mean Corpuscular Volume 93.1 FL Mean Corpuscular Hemoglobin 29.9 PG Mean Corpuscular Hemoglobin 32.2 % Concent Red Cell Distribution Width 16.2 % Platelet Count 229 TH/MM3 Mean Platelet Volume 8.4 FL Sodium Level 141 MEQ/L Potassium Level 4.4 MEQ/L Chloride Level 108 MEQ/L Carbon Dioxide Level 19.8 MEQ/L Anion Gap 13 MEQ/L Blood Urea Nitrogen 41 MG/DL Creatinine 6.53 MG/DL Estimat Glomerular Filtration 11 ML/MIN Rate Random Glucose 104 MG/DL Calcium Level 7.8 MG/DL Imaging Last Impressions Lung Scan-VQ Nuclear Medicine 01/16/17 0000 Signed Impressions: Service Date/Time: Monday, January 16, 2017 15:38 - CONCLUSION: Low probability for pulmonary embolism. Edgardo Goldstein MD FACR Lower Extremity Ultrasound 01/16/17 0000 Signed Impressions: Service Date/Time: Monday, January 16, 2017 08:17 - CONCLUSION: Normal examination. Satinder Khanna Jr., MD Chest X-Ray 6/8/17 2057 Signed Impressions: Service Date/Time: January 21:26 - CONCLUSION: No acute disease. Juan Ramirez MD Abdomen/Pelvis CT 01/15/17 0000 Signed Impressions: Service Date/Time: January 22:54 - CONCLUSION: 1. Patient is on peritoneal dialysis. There is small moderate ascites, increased from before. No loculated fluid. 2. Decreased gastric wall thickening, now mild. Nasogastric tube has been removed. 3. No obstruction or perceptible acute inflammatory changes seen of the gastrointestinal tract. Juan Mercado MD Assessment and Plan Problem List: (1) Mitral valve disease (2) SBP (spontaneous bacterial peritonitis) (3) ESRD (end stage renal disease) (4) HTN (hypertension) (5) Diabetes mellitus (6) Hepatitis C antibody test positive Assessment and Plan No cardiac symptoms. ROBYN with no evidence of endocarditis. Continue tx for SBP as per ID. No new cardiac issues. Problem Qualifiers (1) HTN (hypertension): Qualified Code: I10 - Essential hypertension Blanca Mathews MD Jan 22, 2017 13:33
[2017-01-22] MEDS: CEFEPIME INJ 1,000 MG in SODIUM CHLORIDE 0.9% INJ 100 ML IV SCH (14:05)
--- NOTE | 2017-01-22 14:26 | HHI.IDPN ---
Subjective Subjective Remarks Pt is going wel, completely asymptomatic and offers no complaints He is however conto have low grade temps up to100.3 His ROBYN was negaqtive and PD cath fluid clx negative @ 48 hrs lactic acid up to 3.5 Antibiotics vanco iv cefepime iv Allergies: Coded Allergies: Aspirin (Unverified Allergy, Unknown, 01/15/17) HEP C Objective . Vital Signs Date Time Temp Pulse Resp B/P Pulse Ox O2 Delivery O2 Flow Rate FiO2 01/22/17 12:00 99.7 115 18 167/84 100 01/22/17 08:00 100.3 122 18 149/83 100 01/22/17 08:00 Room Air 01/22/17 04:00 98.9 124 18 147/78 100 01/22/17 00:00 99.3 123 20 160/96 100 01/21/17 20:28 116 01/21/17 20:00 98.5 117 18 141/79 100 01/21/17 19:23 Room Air 01/21/17 01/21/17 01/22/17 15:00 23:00 07:00 Intake Total 1378 ml Output Total 1557 ml 1200 ml Balance -179 ml -1200 ml Intake Oral 480 ml IV Total 898 ml Output Urine Total 500 ml 1200 ml Peritoneal Fluid 1057 ml # Bowel Movements 1 . Laboratory Tests Test 01/21/17 01/22/17 08:55 07:34 White Blood Count 13.1 TH/MM3 12.8 TH/MM3 Red Blood Count 2.60 MIL/MM3 2.47 MIL/MM3 Hemoglobin 7.7 GM/DL 7.4 GM/DL Hematocrit 24.0 % 23.0 % Mean Corpuscular Volume 92.5 FL 93.1 FL Mean Corpuscular Hemoglobin 29.7 PG 29.9 PG Mean Corpuscular Hemoglobin 32.1 % 32.2 % Concent Red Cell Distribution Width 15.8 % 16.2 % Platelet Count 196 TH/MM3 229 TH/MM3 Mean Platelet Volume 9.0 FL 8.4 FL Laboratory Tests Test 01/20/17 01/21/17 01/21/17 01/22/17 20:15 08:53 08:55 07:34 Sodium Level 131 MEQ/L 136 MEQ/L 141 MEQ/L Potassium Level 5.9 MEQ/L 4.6 MEQ/L 4.4 MEQ/L Chloride Level 99 MEQ/L 102 MEQ/L 108 MEQ/L Carbon Dioxide Level 18.8 MEQ/L 19.4 MEQ/L 19.8 MEQ/L Anion Gap 13 MEQ/L 15 MEQ/L 13 MEQ/L Blood Urea Nitrogen 50 MG/DL 48 MG/DL 41 MG/DL Creatinine 7.10 MG/DL 6.60 MG/DL 6.53 MG/DL Estimat Glomerular Filtration 10 ML/MIN 10 ML/MIN 11 ML/MIN Rate Random Glucose 383 MG/DL 110 MG/DL 104 MG/DL Calcium Level 8.1 MG/DL 8.2 MG/DL 7.8 MG/DL Random Cortisol 9.4 MCG/DL Microbiology Date/Time Procedure Status Source Growth 01/20/17 17:20 Gram Stain - Final Resulted Fluid Peritoneal Fluid 01/20/17 17:20 Body Fluid Culture - Preliminary Resulted Fluid Peritoneal Fluid NO GROWTH IN 48 HOURS. 01/20/17 17:20 Acid Fast Stain - Final Resulted Fluid Peritoneal Fluid NO ACID FAST BACILLI SEEN 01/20/17 17:20 Mycobacterial Culture Resulted Fluid Peritoneal Fluid Pending 01/20/17 17:20 Fungal Smear - Final Resulted Fluid Peritoneal Fluid NO FUNGAL ELEMENTS SEEN. 01/20/17 17:20 Fungal Culture Resulted Fluid Peritoneal Fluid Pending Imaging Last Impressions Lung Scan-VQ Nuclear Medicine 01/16/17 0000 Signed Impressions: Service Date/Time: Monday, January 16, 2017 15:38 - CONCLUSION: Low probability for pulmonary embolism. Edgardo Goldstein MD FACR Lower Extremity Ultrasound 01/16/17 0000 Signed Impressions: Service Date/Time: Monday, January 16, 2017 08:17 - CONCLUSION: Normal examination. Satinder Khanna Jr., MD Chest X-Ray 01/15/172056 Signed Impressions: Service Date/Time: January 21:26 - CONCLUSION: No acute disease. Juan Ramirez MD Abdomen/Pelvis CT 01/15/17 0000 Signed Impressions: Service Date/Time: January 22:54 - CONCLUSION: 1. Patient is on peritoneal dialysis. There is small moderate ascites, increased from before. No loculated fluid. 2. Decreased gastric wall thickening, now mild. Nasogastric tube has been removed. 3. No obstruction or perceptible acute inflammatory changes seen of the gastrointestinal tract. Juan Mercado MD Physical Exam CONSTITUTIONAL/GENERAL: This is an adequately nourished patient, in no apparent distress. TUBES/LINES/DRAINS: SKIN: No jaundice, rashes, or lesions. . Skin temperature appropriate. Not diaphoretic. HEAD: Atraumatic. Normocephalic. EYES: Pupils equal and round and reactive. Extraocular motions intact. No scleral icterus. No injection or drainage. Fundi not examined. ENT: Dentition is very poor lower jaw, upper dentures NECK: Trachea midline. Supple, nontender. No palpable thyroid enlargement or nodularity. CARDIOVASCULAR: Regular rate and rhythm without murmurs, gallops, or rubs. No JVD. Peripheral pulses symmetric. RESPIRATORY/CHEST: Symmetric, unlabored respirations. Clear to auscultation. Breath sounds equal bilaterally. No wheezes, rales, or rhonchi. GASTROINTESTINAL: Abdomen soft, non-tender, mildly distended. No hepato- splenomegaly, or palpable masses. No guarding. Bowel sounds present. [place] in place -site [place] GENITOURINARY: Without palpable bladder distension. MUSCULOSKELETAL: Extremities without clubbing, cyanosis, or edema. NEUROLOGICAL: Awake and alert. Motor and sensory grossly within normal limits. Follows commands. Clear speech. Moves all extremities. PSYCHIATRIC: No obvious anxiety/depression. no apparent hallucinations or other psychotic thought process. Assessment & Plan Remarks FUO - - ROBYN negative - HIV neg - CMV, crypto - neg - all clx negative up to date - Procalcitonine high, but pt is in ESRD - diff to interprete - small leukocyutosis as well lactic acidosis -- going up suspected PD related peritonitis, - neg routine clx @ 48 hrs Poorly controlled DM Immunosuppressed: high dose d sterroids (pt is unaware for what disease and for how long he is taking it "I just take what the doctor tells me"): still unclear the indication for prednisone - Prednisone stopped HCV Elevated lipase, but no abd pain to suggest pancreatitis and no CT changes REC's: cont cefepime, vanco for now - vanco per levels - fu repeat PD cath fluid clx, AFB, fungal untill final - will dc jhome if afebrile 1-2 days - will dc on intraperitoneal vanco and fortaz for 1-2 weeks to rx clx negative PD related periotonitis: Tosha Roman Dr, Dr, Dr, Dr, MD Jan 22, 2017 14:26
--- NOTE | 2017-01-22 14:32 | HHI.NPPN ---
Subjective History of Present Illness 61-year-old black male with history of end-stage renal disease, hypertension, new onset of diabetes he was admitted last time with severe hyperglycemia, he was discharge home and he said he did not know how to take insulin and has not taken insulin him back with some abdominal pain, hyperglycemia and received peritoneal dialysis culture has been pending total WBC count was 120 with only 8 % neutrophils. Additional Remarks Patient is alert, no abd. pain, feeling better, eating well, no complain. Review of Systems General Constitutional: Fatigue Cardiovascular Cardiac: AGUILAR Objective Data Data 01/21/17 01/22/17 19:00 07:00 Intake Total 1378 ml Output Total 1557 ml 1200 ml Balance -179 ml -1200 ml Intake Oral 480 ml IV Total 898 ml Output Urine Total 500 ml 1200 ml Peritoneal Fluid 1057 ml # Bowel Movements 1 Vital Signs Date Time Temp Pulse Resp B/P Pulse Ox O2 Delivery O2 Flow Rate FiO2 01/22/17 12:00 99.7 115 18 167/84 100 01/22/17 08:00 100.3 122 18 149/83 100 01/22/17 08:00 Room Air 01/22/17 04:00 98.9 124 18 147/78 100 01/22/17 00:00 99.3 123 20 160/96 100 01/21/17 20:28 116 01/21/17 20:00 98.5 117 18 141/79 100 01/21/17 19:23 Room Air -: 01/22/17 0734 01/22/17 0734 Physical Exam General Appearance: Well Nourished, No Acute Distress, Comfortable Eyes Eye Exam: Pupils Equal Throat Throat Exam: Oral Mucosa [place] & Moist Neck Neck Exam: Neck Supple Pulmonary Resp Exam: Breath Sounds Equal, No Distress, Decreased Bases Cardiology CV Exam: Regular, Normal Sinus Rhythm Gastrointestinal/Abdomen GI Exam: Soft, Non-Tender, Bowel Sounds Present, Distended (with PD catheter in place.) Extremeties Extremities Exam: Trace Edema Neurologic Neuro Exam: Alert, Awake, Oriented Psychiatric Psych Exam: Appropriate Responses Assessment/Plan Problem List: (1) ESRD (end stage renal disease) Plan: Patient is on peritoneal dialysis, he has Lactic acidosis less then 4 ID following since febrile restarted antibiotics Vanco/Cefepime 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
[2017-01-22] MEDS: LABETALOL HCL 100 MG/20 ML VIAL IV PUSH PRN (16:00)
[2017-01-22] MEDS: VANCOMYCIN HCL 1000 MG VIAL IP SCH (16:00)
[2017-01-22] MEDS: ACETAMINOPHEN 325 MG TAB PO PRN (16:01)
[2017-01-22] MEDS ORDERED: SODIUM CHLOR 0.9% 1000 ML INJ 1,000 ML IV SCH (16:30)
[2017-01-22] MEDS: amLODIPine BESYLATE 5 MG TAB PO SCH (21:25)
[2017-01-22] MEDS: ONDANSETRON HCL 4 MG/2 ML VIAL IV PRN (21:40)
[2017-01-23] VITALS: BP 168/92; PULSE 135; RESP 20; TEMP 102.9; O2SAT 100
[2017-01-23] MEDS: ACETAMINOPHEN 325 MG TAB PO PRN (01:16)
[2017-01-23 04:00] VITALS: BP_SYST 163; BP_SYST 89; BP_DIAS 163; BP_DIAS 89; PULSE 117; RESP 18; TEMP 99.1; O2SAT 100
[2017-01-23] MEDS: CHLORHEXIDINE GLUCONATE 2 % 1 PACK (2 CLOTHS) TOP SCH (04:00)
[2017-01-23] MEDS: SODIUM CHLOR 0.9% 1000 ML INJ 1,000 ML IV SCH ×2 (05:20→17:23)
[2017-01-23] MEDS: LOW DOSE INSULIN NOVOLIN REGULAR SUPPLEMENTAL SCALE SQ SCH ×2 (06:22→12:49)
[2017-01-23 08:00] VITALS: BP 164/94; PULSE 119; PULSE 140; RESP 20; TEMP 100.6; O2SAT 100
[2017-01-23] MEDS: CALCIUM ACETATE 667 MG CAP PO SCH ×3 (08:08→17:22)
[2017-01-23] MEDS: CALCITRIOL 0.25 MCG CAP PO SCH (08:08)
[2017-01-23] MEDS: THIAMINE HCL 100 MG TAB PO SCH (08:08)
[2017-01-23] MEDS: SODIUM CHLORIDE 0.9% FLUSH 10 ML FLUSH SCH ×2 (08:08→21:30)
[2017-01-23] MEDS: amLODIPine BESYLATE 5 MG TAB PO SCH ×2 (08:08→21:31)
[2017-01-23] MEDS: DOCUSATE SODIUM 50 MG/SENNA 8.6 MG TAB PO SCH ×2 (08:08→21:00)
[2017-01-23] MEDS: PANTOPRAZOLE SOD 40 MG DELAYED RELEASE TAB PO SCH (08:08)
[2017-01-23] MEDS: INSULIN DETEMIR 100 UNITS/ML VIAL SQ SCH ×2 (08:09→21:36)
[2017-01-23] MEDS: HEPARIN SODIUM - SQ 10,000 UNITS/ML VIAL SQ SCH ×2 (08:15→21:31)
[2017-01-23 08:39] LABS: HEMATOCRIT 23.7 % (39.0-51.0); MEAN CELL VOLUME 94.2 FL (80.0-100.0); MEAN CORPUSCULAR HEMOGLOBIN 30.7 PG (27.0-34.0); MEAN CORPUSCULAR HGB CONC 32.6 % (32.0-36.0); PLATELET COUNT 241 TH/MM3 (150-450); RED BLOOD COUNT 2.52 MIL/MM3 (4.50-5.90); RED CELL DISTRIBUTION WIDTH 16.5 % (11.6-17.2); REVIEW FLAG FINAL; WHITE BLOOD COUNT 13.2 TH/MM3 (4.0-11.0)
[2017-01-23 09:12] LABS: BICARBONATE 20.4 MEQ/L (21.0-32.0); POTASSIUM 4.3 MEQ/L (3.5-5.1)
[2017-01-23 09:44] LABS: CALCIUM-PROTEIN CORRECTED 8.2 MG/DL (8.5-10.1)
[2017-01-23 12:00] VITALS: BP 151/90; PULSE 126; RESP 20; TEMP 99.4; O2SAT 100
--- NOTE | 2017-01-23 12:07 | RADRPT ---
EXAM DATE/TIME: 01/23/2017 11:42 [facility] COMPARISON: CT ABDOMEN & PELVIS W/O CONTRAST, January 15, 2017, 22:54. CHEST SINGLE AP, January 15, 2017, 21:26. INDICATIONS : Fever. MEDICAL HISTORY : Hypertension. Diabetes mellitus type II. SURGICAL HISTORY : None. ENCOUNTER: Initial ACUITY: 1 week PAIN SCORE: 0/10 LOCATION: chest FINDINGS: A single view of the chest demonstrates the lungs to be symmetrically aerated without evidence of mas s, infiltrate or effusion. Redemonstration of left hemidiaphragm elevation. The cardiomediastinal co ntours are unremarkable. Osseous structures are intact. CONCLUSION: 1. No acute abnormality or significant interval change. González Mederos MD on January 23, 2017 at 12:02 Board Certified Radiologist. This report was verified electronically.
[2017-01-23] MEDS: CEFEPIME INJ 1,000 MG in SODIUM CHLORIDE 0.9% INJ 100 ML IV SCH (12:32)
--- NOTE | 2017-01-23 12:53 | HHI.NPPN ---
Subjective History of Present Illness 61-year-old black male with history of end-stage renal disease, hypertension, new onset of diabetes he was admitted last time with severe hyperglycemia, he was discharge home and he said he did not know how to take insulin and has not taken insulin him back with some abdominal pain, hyperglycemia and received peritoneal dialysis culture has been pending total WBC count was 120 with only 8 % neutrophils. Additional Remarks Patient is alert, no abd. pain, had fever 102.9 Review of Systems General Constitutional: Fatigue Cardiovascular Cardiac: AGUILAR Objective Data Data 01/22/17 01/23/17 19:00 07:00 Intake Total 480 ml 1960 ml Output Total 764 ml 1000 ml Balance -284 ml 960 ml Intake Oral 480 ml 360 ml IV Total 1600 ml Output Urine Total 400 ml 1000 ml Peritoneal Fluid 364 ml # Bowel Movements 1 0 Vital Signs Date Time Temp Pulse Resp B/P Pulse Ox O2 Delivery O2 Flow Rate FiO2 01/23/17 08:00 140 01/23/17 08:00 Room Air 01/23/17 08:00 100.6 119 20 164/94 100 01/23/17 04:00 99.1 117 18 163/89 100 01/23/17 00:00 102.9 135 20 168/92 100 01/22/17 21:07 99 01/22/17 20:15 Room Air 01/22/17 20:08 115 01/22/17 20:00 98.7 113 18 165/90 99 01/22/17 16:00 100.6 126 18 171/85 98 -: 01/23/17 0821 01/23/17 0821 Microbiology 01/23/17 Aerobic Blood Culture, Received Pending 01/23/17 Anaerobic Blood Culture, Received Pending 01/23/17 Aerobic Blood Culture, Received Pending 01/23/17 Anaerobic Blood Culture, Received Pending Physical Exam General Appearance: Well Nourished, No Acute Distress, Comfortable Eyes Eye Exam: Pupils Equal Throat Throat Exam: Oral Mucosa [place] & Moist Neck Neck Exam: Neck Supple Pulmonary Resp Exam: Breath Sounds Equal, No Distress, Decreased Bases Cardiology CV Exam: Tachycardia Gastrointestinal/Abdomen GI Exam: Soft, Non-Tender, Bowel Sounds Present, Distended (with PD catheter in place.) Extremeties Extremities Exam: Trace Edema Neurologic Neuro Exam: Alert, Awake, Oriented Psychiatric Psych Exam: Appropriate Responses Assessment/Plan Problem List: (1) ESRD (end stage renal disease) Plan: Patient is on peritoneal dialysis, he has Lactic acidosis less then 4, Procalcitonin positive ID following since febrile restarted antibiotics Vanco/Ceftazidime IP 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
--- NOTE | 2017-01-23 13:56 | PD.CONS ---
HPI History of Present Illness This is a 61 year old male with hx ESRD on PD, newly diagnosed and poorly controlled DM, hep C, HTN who came to hospital after getting dizzy and falling, was found to have elevated BG, lipase. He had CT abd 01-15-17 --> small moderate ascites increased from before, no loculated fluid, decreased gastric wall thickening, no obstruction or preceptible acute inflammatory changes seen of the GI tract. Lipase has since returned to normal limits. he said at that time he was having fevers, vomiting with no blood, non bloody diarrhea. The diarrhea has resolved. The n/v was improved until yesterday when he had episode of 1 x emesis with dark blood. He has never had taht before. Denies abd pain currently or prior to admission. No blood in stool or tarry stools. Denies hx pancreatitis or any "abdominal problems.' He had EGD/colonoscopy a couple years ago that was "routine" and says there were no abnormal findings. Denies NSAIDs, blood thinners. PFSH Past Medical History ESRD DM Hep C HTN on PD Past Surgical History left knee surgery Coded Allergies: Aspirin (Unverified Allergy, Unknown, 01/15/17) HEP C Family History DM, CVD Social History no ETOH smokes 1 pack in 3-4 days no illicit drug use Review of Systems Constitutional: DENIES: Fever Endocrine: DENIES: Polyuria Eyes: DENIES: Blurred vision Ears, nose, mouth, throat: DENIES: Hearing loss Respiratory: DENIES: Wheezing Cardiovascular: DENIES: Chest pain Gastrointestinal: COMPLAINS OF: Nausea, Vomiting, Hematemesis, DENIES: Abdominal pain, Black stools, Bloody stools, Constipation, Diarrhea Genitourinary: DENIES: Hematuria Musculoskeletal: DENIES: Muscle aches Integumentary: DENIES: Abnormal pigmentation Neurologic: DENIES: Headache Psychiatric: DENIES: Confusion GI Exam Vitals I&O Vital Signs Date Time Temp Pulse Resp B/P Pulse Ox O2 Delivery O2 Flow Rate FiO2 01/23/17 12:00 99.4 126 20 151/90 100 01/23/17 08:00 140 01/23/17 08:00 Room Air 01/23/17 08:00 100.6 119 20 164/94 100 01/23/17 04:00 99.1 117 18 163/89 100 01/23/17 00:00 102.9 135 20 168/92 100 01/22/17 21:07 99 01/22/17 20:15 Room Air 01/22/17 20:08 115 01/22/17 20:00 98.7 113 18 165/90 99 01/22/17 16:00 100.6 126 18 171/85 98 I/O 01/22/17 01/22/17 01/22/17 01/23/17 01/23/17 01/23/17 07:00 15:00 23:00 07:00 15:00 23:00 Intake Total 480 ml 1040 ml 920 ml Output Total 1200 ml 764 ml 600 ml 400 ml 985 ml Balance -1200 ml -284 ml 440 ml 520 ml -985 ml Intake Oral 480 ml 240 ml 120 ml IV Total 800 ml 800 ml Output Urine Total 1200 ml 400 ml 600 ml 400 ml Peritoneal Fluid 364 ml Hemodialysis 985 ml # Bowel Movements 1 0 0 Imaging Last Impressions Chest X-Ray 01/23/17 0000 Signed Impressions: Service Date/Time: Monday, January 23, 2017 11:42 - CONCLUSION: 1. No acute abnormality or significant interval change. González Mederos MD Lung Scan-VQ Nuclear Medicine 01/16/17 0000 Signed Impressions: Service Date/Time: Monday, January 16, 2017 15:38 - CONCLUSION: Low probability for pulmonary embolism. Edgardo Goldstein MD FACR Lower Extremity Ultrasound 01/16/17 0000 Signed Impressions: Service Date/Time: Monday, January 16, 2017 08:17 - CONCLUSION: Normal examination. Satinder Khanna Jr., MD Abdomen/Pelvis CT 01/15/17 0000 Signed Impressions: Service Date/Time: January 22:54 - CONCLUSION: 1. Patient is on peritoneal dialysis. There is small moderate ascites, increased from before. No loculated fluid. 2. Decreased gastric wall thickening, now mild. Nasogastric tube has been removed. 3. No obstruction or perceptible acute inflammatory changes seen of the gastrointestinal tract. Juan Mercado MD Laboratory Test 01/22/17 01/23/17 16:08 08:21 Lactic Acid Level 2.3 mmol/L 1.3 mmol/L Random Vancomycin Level 18.4 COMMENT White Blood Count 13.2 TH/MM3 Red Blood Count 2.52 MIL/MM3 Hemoglobin 7.7 GM/DL Hematocrit 23.7 % Mean Corpuscular Volume 94.2 FL Mean Corpuscular Hemoglobin 30.7 PG Mean Corpuscular Hemoglobin 32.6 % Concent Red Cell Distribution Width 16.5 % Platelet Count 241 TH/MM3 Mean Platelet Volume 7.8 FL Sodium Level 142 MEQ/L Potassium Level 4.3 MEQ/L Chloride Level 111 MEQ/L Carbon Dioxide Level 20.4 MEQ/L Anion Gap 11 MEQ/L Blood Urea Nitrogen 34 MG/DL Creatinine 6.36 MG/DL Estimat Glomerular Filtration 11 ML/MIN Rate Random Glucose 120 MG/DL Calcium Level 7.4 MG/DL Protein Corrected Calcium 8.2 MG/DL Total Protein 5.7 GM/DL Anti-Nuclear Antibody Screen NEG Date/Time Procedure Status Source Growth 01/23/17 12:25 Aerobic Blood Culture Received Blood Peripheral Pending 01/23/17 12:25 Anaerobic Blood Culture Received Blood Peripheral Pending 01/20/17 17:20 Gram Stain - Final Complete Fluid Peritoneal Fluid 01/20/17 17:20 Body Fluid Culture - Final Complete Fluid Peritoneal Fluid NO GROWTH IN 72 HRS.--AEROBICALLY OR ... 01/20/17 17:20 Fungal Smear - Final Resulted Fluid Peritoneal Fluid NO FUNGAL ELEMENTS SEEN. 01/20/17 17:20 Fungal Culture Resulted Fluid Peritoneal Fluid Pending 01/20/17 17:20 Acid Fast Stain - Final Resulted Fluid Peritoneal Fluid NO ACID FAST BACILLI SEEN 01/20/17 17:20 Mycobacterial Culture Resulted Fluid Peritoneal Fluid Pending 01/19/17 11:45 Aerobic Blood Culture - Preliminary Resulted Blood Peripheral NO GROWTH IN 4 DAYS 01/19/17 11:45 Anaerobic Blood Culture - Preliminary Resulted Blood Peripheral NO GROWTH IN 4 DAYS Physical Examination HEENT: PERRL; normocephalic; atraumatic; no jaundice. CHEST: CTA CARDIAC: RRR ABDOMEN: Soft, mildly distended, tympanitic, nontender; bowel sounds are present in all four quadrants. EXTREMITIES: No clubbing, cyanosis, or edema. SKIN: Normal; no rash; no jaundice. 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 Assessment and Plan Plan ASSESSMENT - anemia - Hgb 7.7, stable over last few days. - hematemesis - 1 x episode maroon blood in emesis last night - elevated lipase - was 2000 on admission, since has returned to normal limits. Pt denies any abd pain now or prior to admission. He did have n/v. - leukocytosis - 13.2 SBP? on abx. PLAN - EGD thursday - obtain consents - NPO after midnight thursday - monitor HH - transfuse prn - notify GI of active bleeding - supportive care - further recommendations to follow This pt seen by myself and Dr Pelletier and this note is written on his behalf Fiorella Billings Jan 23, 2017 13:56
--- NOTE | 2017-01-23 14:50 | HHI.IDPN ---
Subjective Subjective Remarks Spiked fever up to 102/9 sp hematoemesis this am denies nausea, vomiting Antibiotics vanco iv cefepime iv Allergies: Coded Allergies: Aspirin (Unverified Allergy, Unknown, 01/15/17) HEP C Objective . Vital Signs Date Time Temp Pulse Resp B/P Pulse Ox O2 Delivery O2 Flow Rate FiO2 01/23/17 12:00 99.4 126 20 151/90 100 01/23/17 08:00 140 01/23/17 08:00 Room Air 01/23/17 08:00 100.6 119 20 164/94 100 01/23/17 04:00 99.1 117 18 163/89 100 01/23/17 00:00 102.9 135 20 168/92 100 01/22/17 21:07 99 01/22/17 20:15 Room Air 01/22/17 20:08 115 01/22/17 20:00 98.7 113 18 165/90 99 01/22/17 16:00 100.6 126 18 171/85 98 01/22/17 01/22/17 01/23/17 15:00 23:00 07:00 Intake Total 480 ml 1040 ml 920 ml Output Total 764 ml 600 ml 400 ml Balance -284 ml 440 ml 520 ml Intake Oral 480 ml 240 ml 120 ml IV Total 800 ml 800 ml Output Urine Total 400 ml 600 ml 400 ml Peritoneal Fluid 364 ml # Bowel Movements 1 0 0 . Laboratory Tests Test 01/22/17 01/23/17 07:34 08:21 White Blood Count 12.8 TH/MM3 13.2 TH/MM3 Red Blood Count 2.47 MIL/MM3 2.52 MIL/MM3 Hemoglobin 7.4 GM/DL 7.7 GM/DL Hematocrit 23.0 % 23.7 % Mean Corpuscular Volume 93.1 FL 94.2 FL Mean Corpuscular Hemoglobin 29.9 PG 30.7 PG Mean Corpuscular Hemoglobin 32.2 % 32.6 % Concent Red Cell Distribution Width 16.2 % 16.5 % Platelet Count 229 TH/MM3 241 TH/MM3 Mean Platelet Volume 8.4 FL 7.8 FL Laboratory Tests Test 01/22/17 01/22/17 01/23/17 07:34 16:08 08:21 Sodium Level 141 MEQ/L 142 MEQ/L Potassium Level 4.4 MEQ/L 4.3 MEQ/L Chloride Level 108 MEQ/L 111 MEQ/L Carbon Dioxide Level 19.8 MEQ/L 20.4 MEQ/L Anion Gap 13 MEQ/L 11 MEQ/L Blood Urea Nitrogen 41 MG/DL 34 MG/DL Creatinine 6.53 MG/DL 6.36 MG/DL Estimat Glomerular Filtration 11 ML/MIN 11 ML/MIN Rate Random Glucose 104 MG/DL 120 MG/DL Calcium Level 7.8 MG/DL 7.4 MG/DL Lactic Acid Level 2.3 mmol/L 1.3 mmol/L Protein Corrected Calcium 8.2 MG/DL Total Protein 5.7 GM/DL Microbiology Date/Time Procedure Status Source Growth 01/20/17 17:20 Gram Stain - Final Complete Fluid Peritoneal Fluid 01/20/17 17:20 Body Fluid Culture - Final Complete Fluid Peritoneal Fluid NO GROWTH IN 72 HRS.--AEROBICALLY OR ... 01/20/17 17:20 Acid Fast Stain - Final Resulted Fluid Peritoneal Fluid NO ACID FAST BACILLI SEEN 01/20/17 17:20 Mycobacterial Culture Resulted Fluid Peritoneal Fluid Pending 01/20/17 17:20 Fungal Smear - Final Resulted Fluid Peritoneal Fluid NO FUNGAL ELEMENTS SEEN. 01/20/17 17:20 Fungal Culture Resulted Fluid Peritoneal Fluid Pending 01/23/17 12:01 Aerobic Blood Culture Received Blood Peripheral Pending 01/23/17 12:01 Anaerobic Blood Culture Received Blood Peripheral Pending 01/23/17 12:25 Aerobic Blood Culture Received Blood Peripheral Pending 01/23/17 12:25 Anaerobic Blood Culture Received Blood Peripheral Pending Imaging Last Impressions Chest X-Ray 01/23/17 0000 Signed Impressions: Service Date/Time: Monday, January 23, 2017 11:42 - CONCLUSION: 1. No acute abnormality or significant interval change. González Mederos MD Lung Scan-VQ Nuclear Medicine 01/16/17 0000 Signed Impressions: Service Date/Time: Monday, January 16, 2017 15:38 - CONCLUSION: Low probability for pulmonary embolism. Edgardo Goldstein MD FACR Lower Extremity Ultrasound 01/16/17 0000 Signed Impressions: Service Date/Time: Monday, January 16, 2017 08:17 - CONCLUSION: Normal examination. Satinder Khanna Jr., MD Abdomen/Pelvis CT 01/15/17 0000 Signed Impressions: Service Date/Time: January 22:54 - CONCLUSION: 1. Patient is on peritoneal dialysis. There is small moderate ascites, increased from before. No loculated fluid. 2. Decreased gastric wall thickening, now mild. Nasogastric tube has been removed. 3. No obstruction or perceptible acute inflammatory changes seen of the gastrointestinal tract. Juan Mercado MD Physical Exam CONSTITUTIONAL/GENERAL: This is an adequately nourished patient, in no apparent distress. TUBES/LINES/DRAINS: SKIN: No jaundice, rashes, or lesions. . Skin temperature appropriate. Not diaphoretic. HEAD: Atraumatic. Normocephalic. EYES: Pupils equal and round and reactive. Extraocular motions intact. No scleral icterus. No injection or drainage. Fundi not examined. ENT: Dentition is very poor lower jaw, upper dentures NECK: Trachea midline. Supple, nontender. No palpable thyroid enlargement or nodularity. CARDIOVASCULAR: Regular rate and rhythm without murmurs, gallops, or rubs. No JVD. Peripheral pulses symmetric. RESPIRATORY/CHEST: Symmetric, unlabored respirations. Clear to auscultation. Breath sounds equal bilaterally. No wheezes, rales, or rhonchi. GASTROINTESTINAL: Abdomen soft, non-tender, mildly distended. No hepato- splenomegaly, or palpable masses. No guarding. Bowel sounds present. Tenkoff in place -site [place] GENITOURINARY: Without palpable bladder distension. MUSCULOSKELETAL: Extremities without clubbing, cyanosis, or edema. NEUROLOGICAL: Awake and alert. Motor and sensory grossly within normal limits. Follows commands. Clear speech. Moves all extremities. PSYCHIATRIC: No obvious anxiety/depression. no apparent hallucinations or other psychotic thought process. Assessment & Plan Remarks FUO - - ROBYN negative - HIV neg - CMV, crypto - neg - all clx negative up to date - Procalcitonine high, but pt is in ESRD - diff to interprete - small leukocyutosis as well lactic acidosis -- going down suspected PD related peritonitis, - neg routine clx @ 48 hrs Poorly controlled DM Immunosuppressed: high dose d sterroids (pt is unaware for what disease and for how long he is taking it "I just take what the doctor tells me"): still unclear the indication for prednisone - Prednisone stopped HCV Elevated lipase, but no abd pain to suggest pancreatitis and no CT changes New issue - hematoemesis - he has gastric wall thickening REC's: cont cefepime, vanco IP - fu repeat PD cath fluid clx, AFB, fungal untill final - agree with GI consult Tosha Roman Dr, Dr, Dr, MD Jan 23, 2017 14:50 Tosha Mitchell MD Jan 23, 2017 14:50
--- NOTE | 2017-01-23 15:27 | HHI.PR ---
Subjective Remarks The patient says he has been vomiting and he vomited blood this morning. He said he hasn't done that before. He says he tends to get nauseous when he receives his insulin. Otherwise he has no acute complaints. Denies shortness of breath. He denies abdominal pain. He says he doesn't drink alcohol. Discussed with nursing. Objective Vitals Vital Signs Date Time Temp Pulse Resp B/P Pulse Ox O2 Delivery O2 Flow Rate FiO2 01/23/17 12:00 99.4 126 20 151/90 100 01/23/17 08:00 140 01/23/17 08:00 Room Air 01/23/17 08:00 100.6 119 20 164/94 100 01/23/17 04:00 99.1 117 18 163/89 100 01/23/17 00:00 102.9 135 20 168/92 100 01/22/17 21:07 99 01/22/17 20:15 Room Air 01/22/17 20:08 115 01/22/17 20:00 98.7 113 18 165/90 99 01/22/17 16:00 100.6 126 18 171/85 98 I/O 01/22/17 01/22/17 01/22/17 01/23/17 01/23/17 01/23/17 06:59 14:59 22:59 06:59 14:59 22:59 Intake Total 480 ml 1040 ml 920 ml Output Total 1200 ml 764 ml 600 ml 400 ml 985 ml Balance -1200 ml -284 ml 440 ml 520 ml -985 ml Intake Oral 480 ml 240 ml 120 ml IV Total 800 ml 800 ml Output Urine Total 1200 ml 400 ml 600 ml 400 ml Peritoneal Fluid 364 ml Hemodialysis 985 ml # Bowel Movements 1 0 0 Result Diagram: 01/23/17 0821 01/23/17 0821 Imaging Last Impressions Chest X-Ray 01/23/17 0000 Signed Impressions: Service Date/Time: Monday, January 23, 2017 11:42 - CONCLUSION: 1. No acute abnormality or significant interval change. González Mederos MD Lung Scan-VQ Nuclear Medicine 01/16/17 0000 Signed Impressions: Service Date/Time: Monday, January 16, 2017 15:38 - CONCLUSION: Low probability for pulmonary embolism. Edgardo Goldstein MD FACR Lower Extremity Ultrasound 01/16/17 0000 Signed Impressions: Service Date/Time: Monday, January 16, 2017 08:17 - CONCLUSION: Normal examination. Satinder Khanna Jr., MD Abdomen/Pelvis CT 01/15/17 0000 Signed Impressions: Service Date/Time: January 22:54 - CONCLUSION: 1. Patient is on peritoneal dialysis. There is small moderate ascites, increased from before. No loculated fluid. 2. Decreased gastric wall thickening, now mild. Nasogastric tube has been removed. 3. No obstruction or perceptible acute inflammatory changes seen of the gastrointestinal tract. Juan Mercado MD Objective Remarks GENERAL: This is a well-nourished, well-developed patient, in no apparent distress. SKIN: No rashes, warm and dry HEAD: Atraumatic. Normocephalic. EYES: Pupils equal round and reactive. Extraocular motions intact. No scleral icterus. ENT: Nose without bleeding, or drainage, Airway patent. NECK: Trachea midline. Supple CARDIOVASCULAR: Tachycardic without murmurs, gallops or rubs. RESPIRATORY: Clear to auscultation bilaterally. No wheezing, rales or rhonchi. GASTROINTESTINAL: Abdomen soft, non-tender, nondistended. Positive bowel sounds. MUSCULOSKELETAL: Extremities without clubbing, cyanosis, edema. Pedal pulses appreciated. NEUROLOGICAL: Awake and alert. Moves all extremity. Normal speech. No focal neurological deficit. PSYCH: Slightly flattened affect. Medications and IVs Current Medications Medications (Trade) Dose Ordered Sig/Issac Route Start Time Stop Time Status Last Admin (NS Flush) 10 ml UNSCH PRN IV FLUSH 01/15/17 22:30 (NS Flush) 2 ml UNSCH PRN .XX 01/15/17 23:30 (NS Flush) 2 ml BID .XX 01/16/17 09:00 01/22/17 21:25 (Tylenol) 650 mg Q6H PRN PO 01/15/17 23:30 01/23/17 01:16 (Zofran Inj) 4 mg Q6H PRN IV 01/15/17 23:30 01/22/17 21:40 Miscellaneous Information 1 Q361D XX 01/15/17 23:30 01/15/17 23:30 (Chlorhexidine 2% Cloth) Taper DAILY@04 TOP 01/16/17 04:00 01/12/18 03:59 01/18/17 04:00 (Chlorhexidine 2% Cloth) 3 pack UNSCH PRN TOP 01/15/17 23:30 (Jessica-Colace) 1 tab BID PO 01/16/17 09:00 01/21/17 09:34 (Milk Of Magnesia Liq) 30 ml Q12H PRN PO 01/15/17 23:30 (Senokot) 17.2 mg Q12H PRN PO 01/15/17 23:30 (Dulcolax Supp) 10 mg DAILY PRN RECTAL 01/15/17 23:30 (Lactulose Liq) 30 ml DAILY PRN PO 01/15/17 23:30 (Norvasc) 5 mg BID PO 01/16/17 09:00 01/23/17 08:08 (Rocaltrol) 0.25 mcg DAILY PO 01/16/17 09:00 01/23/17 08:08 (Phoslo) 667 mg TID PO 01/16/17 09:00 01/23/17 12:31 (Catapres) 0.3 mg TID PO 01/16/17 09:00 Hold 01/19/17 17:14 (Trandate Inj) 10 mg Q4H PRN IV PUSH 01/16/17 00:15 01/22/17 16:00 (Heparin Inj) 5,000 units Q12HR SQ 01/16/17 09:00 01/22/17 21:24 ([place] 5-325 Mg) 1 tab Q6H PRN PO 01/16/17 05:15 (Morphine Inj) 2 mg Q3H PRN IV PUSH 01/16/17 05:15 (KCl) 20 meq Q12HR PO 01/16/17 10:45 Hold 01/20/17 00:29 (D50w (Vial) Inj) 50 ml UNSCH PRN IV 01/19/17 11:15 (Glucagon Inj) 1 mg UNSCH PRN OTHER 01/19/17 11:15 Thiamine HCl 100 mg 100 mg DAILY PO 01/20/17 09:00 01/23/17 08:08 Sodium Chloride 1,000 ml @ 100 mls/hr Q10H IV 01/20/17 08:15 01/23/17 05:20 (Maxipime Inj/NS Inj) 100 ml @ 200 mls/hr Q24H IV 01/20/17 14:00 01/23/17 12:32 (Levemir Inj) 5 units HS SQ 01/21/17 21:00 01/22/17 21:31 (Levemir Inj) 7 units DAILY SQ 01/22/17 09:00 01/22/17 08:58 Pantoprazole Sodium 40 mg 40 mg DAILY PO 01/22/17 09:00 01/23/17 08:08 Lactated Ringer's 1,000 ml @ 30 mls/hr Q24H PRN IV 01/21/17 16:15 01/24/17 16:14 (NS 500 ml Inj) 500 ml @ 30 mls/hr [id number] PRN IV 01/21/17 16:15 01/24/17 16:14 (Vancomycin Inj) 2,000 mg Q7D IP 01/22/17 16:00 01/22/17 16:00 (Fortaz Inj) 1,000 mg DAILY IP 01/22/17 16:00 01/22/17 16:00 A/P Assessment and Plan SBP/ Elevated lipase/ Sepsis Presented with abdominal pain, vomiting and diarrhea. CT abdomen and pelvis noncontrast with normal gallbladder, liver, pancreas. Triglyceride level elevated but not contributory, 290. No prior h/o pancreatitis. There is thickening of stomach noted on CT abd/pelvis and may need EGD at some point though could be done as outpatient. Peritoneal fluid initially negative for SBP , but repeat sample indicative of SBP. Symptoms appear to be resolved. Still spiking fevers. Echo revealed evidence of vegetation on the mitral valve. Blood cultures with no growth at this time. Cardiology consult appreciated. ROBYN performed 01/21/17. Negative for endocarditis. - Protonix. - IV antibiotics per ID. - repeat panculture. - check [place]. Hematemesis One episode 01/23/17. GI consult appreciated. - EGD scheduled for Thursday. - IV PPI. - Follow CBC. Acute respiratory alkalosis/ COPD Alkalosis likely compensatory for metabolic acidosis. Pt was previously on prednisone, unclear if secondary to COPD. He smokes a pack every few days. Breathing is stable at this point. S/p prednisone. - smoking cessation instruction. - oxygen as needed. - encourage ambulation. Hypertension The pt has been hypotensive, now hypertensive. - resume clonidine at a lower dose and resume amlodipine. ESRD/ Hyperkalemia On peritoneal dialysis. - PD per Dr. Sosa. - d/c KCl and give Kayexalate as needed. Lactic acidemia ? secondary to poor clearance vs sepsis. Unknown if PD had lactate buffer. - Monitor serial lactic acid. Improved. - antibiotics. - IVFs. Chronic anemia Likely s/t chronic disease. - follow CBC and transfuse as needed. Sinus tachycardia Multifactorial. - IVFs. - telemetry. Diabetes mellitus Poorly controlled. - low dose dose insulin sliding scale. Increase long-acting to Levemir 7 units daily, 5 units HS. Secondary hyperparathyroidism S/t renal disease. - Calcitriol 0.25 mg po daily, calcium acetate 667 mg po tid. PPx: Heparin Discharge Planning Awaiting clinical improvement Saud German DO Jan 23, 2017 15:27
[2017-01-23 16:00] VITALS: BP 149/91; PULSE 127; RESP 20; TEMP 99.6; O2SAT 99
[2017-01-23] MEDS: INSULIN ASPART SUPPLEMENTAL SCALE SQ SCH ×2 (16:00→21:38)
[2017-01-23 17:09] LABS: HEMATOCRIT 21.7 % (39.0-51.0); MEAN CELL VOLUME 94.5 FL (80.0-100.0); MEAN CORPUSCULAR HEMOGLOBIN 30.3 PG (27.0-34.0); MEAN CORPUSCULAR HGB CONC 32.1 % (32.0-36.0); PLATELET COUNT 220 TH/MM3 (150-450); RED CELL DISTRIBUTION WIDTH 16.6 % (11.6-17.2); REVIEW FLAG FINAL
[2017-01-23] MEDS: cloNIDine HCL 0.1 MG TAB PO SCH (17:21)
[2017-01-23 20:00] VITALS: BP_SYST 88; PULSE 116; PULSE 121; RESP 20; TEMP 99.3; O2SAT 100
[2017-01-23] MEDS: PANTOPRAZOLE SODIUM 40 MG VIAL IV PUSH SCH (21:30)
--- NOTE | 2017-01-23 22:34 | EKG ---
Date Performed: 01/22/2017 Time Performed: 21:27:31 PTAGE: 61 years EKG: SINUS TACHYCARDIA ABNORMAL RHYTHM ECG PREVIOUS TRACING : 01/15/2017 21.10 DOCTOR: Kathe Yip Interpretating Date/Time 01/23/2017 22:33:05
[2017-01-24] VITALS (8 sets, daily range): BP systolic 133–166; BP diastolic 68–93; PULSE 111–119; RESP 16–20; TEMP 99.5–101.1; O2SAT 99–100
[2017-01-24] MEDS: SODIUM CHLOR 0.9% 1000 ML INJ 1,000 ML IV SCH ×3 (03:04→21:53)
[2017-01-24] MEDS: CHLORHEXIDINE GLUCONATE 2 % 1 PACK (2 CLOTHS) TOP SCH (03:09)
[2017-01-24] MEDS: INSULIN ASPART SUPPLEMENTAL SCALE SQ SCH ×4 (05:36→21:00)
[2017-01-24 07:59] LABS: HEMATOCRIT 22.5 % (39.0-51.0); MEAN CELL VOLUME 93.8 FL (80.0-100.0); MEAN CORPUSCULAR HEMOGLOBIN 29.9 PG (27.0-34.0); MEAN CORPUSCULAR HGB CONC 31.8 % (32.0-36.0); PLATELET COUNT 219 TH/MM3 (150-450); REVIEW FLAG FINAL; WHITE BLOOD COUNT 11.3 TH/MM3 (4.0-11.0)
[2017-01-24 08:23] LABS: BICARBONATE 22.4 MEQ/L (21.0-32.0); MAGNESIUM 1.3 MG/DL (1.5-2.5); POTASSIUM 3.9 MEQ/L (3.5-5.1)
--- NOTE | 2017-01-24 10:13 | HHI.NPPN ---
Subjective History of Present Illness 61-year-old black male with history of end-stage renal disease, hypertension, new onset of diabetes he was admitted last time with severe hyperglycemia, he was discharge home and he said he did not know how to take insulin and has not taken insulin him back with some abdominal pain, hyperglycemia and received peritoneal dialysis culture has been pending total WBC count was 120 with only 8 % neutrophils. Additional Remarks low grade fever. PD carried out. Review of Systems General Constitutional: Fatigue Cardiovascular Cardiac: AGUILAR Objective Data Data 01/23/17 01/24/17 19:00 07:00 Intake Total 450 ml 1246 ml Output Total 1885 ml 900 ml Balance -1435 ml 346 ml Intake Oral 450 ml 240 ml IV Total 1006 ml Output Urine Total 900 ml 900 ml Hemodialysis 985 ml # Bowel Movements 1 Vital Signs Date Time Temp Pulse Resp B/P Pulse Ox O2 Delivery O2 Flow Rate FiO2 01/24/17 08:00 100.0 118 17 146/82 100 01/24/17 04:53 148/68 01/24/17 01:00 156/88 01/24/17 00:00 99.7 115 20 166/93 100 01/23/17 20:00 Room Air 01/23/17 20:00 99.3 116 20 88/ 100 01/23/17 20:00 121 01/23/17 16:00 99.6 127 20 149/91 99 01/23/17 12:00 99.4 126 20 151/90 100 -: 01/24/17 0710 01/24/17 0710 Microbiology 01/23/17 Aerobic Blood Culture, Received Pending 01/23/17 Anaerobic Blood Culture, Received Pending 01/23/17 Aerobic Blood Culture, Received Pending 01/23/17 Anaerobic Blood Culture, Received Pending Physical Exam General Appearance: Well Nourished, No Acute Distress, Comfortable Eyes Eye Exam: Pupils Equal Throat Throat Exam: Oral Mucosa [place] & Moist Neck Neck Exam: Neck Supple Pulmonary Resp Exam: Breath Sounds Equal, No Distress, Decreased Bases Cardiology CV Exam: Tachycardia Gastrointestinal/Abdomen GI Exam: Soft, Non-Tender, Bowel Sounds Present, Distended (with PD catheter in place.) Extremeties Extremities Exam: Trace Edema Neurologic Neuro Exam: Alert, Awake, Oriented Psychiatric Psych Exam: Appropriate Responses Assessment/Plan Problem List: (1) ESRD (end stage renal disease) Plan: Patient is on peritoneal dialysis, Using 2.5 % dextrose and 1.5%, 1800 ml fill volume, with last fill of 1500 ml of 1.5%, dwell time 6 hours. Last fill contains Fortaz. Cultures have been negative. ID following, antibiotics need to be clarified, since as of now he is receiving IV Cefepime and IP Fortaz. He is also on once a week IP Vancomycin. (2) Lactic acidosis Plan: due to infection/sepsis. (3) HTN (hypertension) Plan: Continue to monitor (4) Diabetic hyperosmolar non-ketotic state Plan: Blood sugar is better with insulin Problem Qualifiers (1) HTN (hypertension): Qualified Code: I10 - Essential hypertension Berry Murdock MD Jan 24, 2017 10:13
[2017-01-24] MEDS: CALCITRIOL 0.25 MCG CAP PO SCH (10:30)
[2017-01-24] MEDS: THIAMINE HCL 100 MG TAB PO SCH (10:30)
[2017-01-24] MEDS: PANTOPRAZOLE SODIUM 40 MG VIAL IV PUSH SCH ×2 (10:30→22:03)
[2017-01-24] MEDS: cloNIDine HCL 0.1 MG TAB PO SCH ×3 (10:30→17:11)
[2017-01-24] MEDS: HEPARIN SODIUM - SQ 10,000 UNITS/ML VIAL SQ SCH ×2 (10:30→22:04)
[2017-01-24] MEDS: CALCIUM ACETATE 667 MG CAP PO SCH ×3 (10:30→17:11)
[2017-01-24] MEDS: amLODIPine BESYLATE 5 MG TAB PO SCH ×2 (10:30→22:03)
[2017-01-24] MEDS: INSULIN DETEMIR 100 UNITS/ML VIAL SQ SCH ×2 (10:38→22:11)
[2017-01-24] MEDS: SODIUM CHLORIDE 0.9% FLUSH 10 ML FLUSH SCH ×2 (10:40→21:00)
[2017-01-24] MEDS: DOCUSATE SODIUM 50 MG/SENNA 8.6 MG TAB PO SCH ×2 (10:40→21:00)
[2017-01-24] MEDS ORDERED: MAGNESIUM SULFATE 1 GM PREMIX 100 ML IV ONE (12:45)
[2017-01-24] MEDS: CEFEPIME INJ 1,000 MG in SODIUM CHLORIDE 0.9% INJ 100 ML IV SCH (12:59)
--- NOTE | 2017-01-24 13:07 | HHI.PR ---
Subjective Remarks The patient was eating lunch. He continues to feel great. He denies any further episodes of vomiting blood. He is breathing comfortably. Denies abdominal pain. Objective Vitals Vital Signs Date Time Temp Pulse Resp B/P Pulse Ox O2 Delivery O2 Flow Rate FiO2 01/24/17 12:00 99.8 118 16 145/84 99 01/24/17 08:00 100.0 118 17 146/82 100 01/24/17 04:53 148/68 01/24/17 01:00 156/88 01/24/17 00:00 99.7 115 20 166/93 100 01/23/17 20:00 Room Air 01/23/17 20:00 99.3 116 20 88/ 100 01/23/17 20:00 121 01/23/17 16:00 99.6 127 20 149/91 99 I/O 01/23/17 01/23/17 01/23/17 01/24/17 01/24/17 01/24/17 07:00 15:00 23:00 07:00 15:00 23:00 Intake Total 920 ml 450 ml 1246 ml Output Total 400 ml 1885 ml 400 ml 500 ml 1400 ml Balance 520 ml -1435 ml -400 ml 746 ml -1400 ml Intake Oral 120 ml 450 ml 240 ml IV Total 800 ml 1006 ml Output Urine Total 400 ml 900 ml 400 ml 500 ml Peritoneal Fluid 1400 ml Hemodialysis 985 ml # Bowel Movements 0 1 Result Diagram: 01/24/17 0710 01/24/17 0710 Imaging Last Impressions Chest X-Ray 01/23/17 0000 Signed Impressions: Service Date/Time: Monday, January 23, 2017 11:42 - CONCLUSION: 1. No acute abnormality or significant interval change. González Mederos MD Lung Scan-VQ Nuclear Medicine 01/16/17 0000 Signed Impressions: Service Date/Time: Monday, January 16, 2017 15:38 - CONCLUSION: Low probability for pulmonary embolism. Edgardo Goldstein MD FACR Lower Extremity Ultrasound 01/16/17 0000 Signed Impressions: Service Date/Time: Monday, January 16, 2017 08:17 - CONCLUSION: Normal examination. Satinder Khanna Jr., MD Abdomen/Pelvis CT 01/15/17 0000 Signed Impressions: Service Date/Time: January 22:54 - CONCLUSION: 1. Patient is on peritoneal dialysis. There is small moderate ascites, increased from before. No loculated fluid. 2. Decreased gastric wall thickening, now mild. Nasogastric tube has been removed. 3. No obstruction or perceptible acute inflammatory changes seen of the gastrointestinal tract. Juan Mercado MD Objective Remarks GENERAL: This is a well-nourished, well-developed patient, in no apparent distress. SKIN: No rashes, warm and dry HEAD: Atraumatic. Normocephalic. EYES: Pupils equal round and reactive. Extraocular motions intact. No scleral icterus. ENT: Nose without bleeding, or drainage, Airway patent. NECK: Trachea midline. Supple CARDIOVASCULAR: Tachycardic without murmurs, gallops or rubs. RESPIRATORY: Clear to auscultation bilaterally. No wheezing, rales or rhonchi. GASTROINTESTINAL: Abdomen soft, non-tender, nondistended. Positive bowel sounds. MUSCULOSKELETAL: Extremities without clubbing, cyanosis, edema. Pedal pulses appreciated. NEUROLOGICAL: Awake and alert. Moves all extremity. Normal speech. No focal neurological deficit. PSYCH: Slightly flattened affect. Medications and IVs Current Medications Medications (Trade) Dose Ordered Sig/Issac Route Start Time Stop Time Status Last Admin (NS Flush) 10 ml UNSCH PRN IV FLUSH 01/15/17 22:30 (NS Flush) 2 ml UNSCH PRN .XX 01/15/17 23:30 (NS Flush) 2 ml BID .XX 01/16/17 09:00 01/24/17 10:40 (Tylenol) 650 mg Q6H PRN PO 01/15/17 23:30 01/23/17 01:16 (Zofran Inj) 4 mg Q6H PRN IV 01/15/17 23:30 01/22/17 21:40 Miscellaneous Information 1 Q361D XX 01/15/17 23:30 01/15/17 23:30 (Chlorhexidine 2% Cloth) Taper DAILY@04 TOP 01/16/17 04:00 01/12/18 03:59 01/18/17 04:00 (Chlorhexidine 2% Cloth) 3 pack UNSCH PRN TOP 01/15/17 23:30 (Jessica-Colace) 1 tab BID PO 01/16/17 09:00 01/21/17 09:34 (Milk Of Magnesia Liq) 30 ml Q12H PRN PO 01/15/17 23:30 (Senokot) 17.2 mg Q12H PRN PO 01/15/17 23:30 (Dulcolax Supp) 10 mg DAILY PRN RECTAL 01/15/17 23:30 (Lactulose Liq) 30 ml DAILY PRN PO 01/15/17 23:30 (Norvasc) 5 mg BID PO 01/16/17 09:00 01/24/17 10:30 (Rocaltrol) 0.25 mcg DAILY PO 01/16/17 09:00 01/24/17 10:30 (Phoslo) 667 mg TID PO 01/16/17 09:00 01/24/17 12:59 (Trandate Inj) 10 mg Q4H PRN IV PUSH 01/16/17 00:15 01/22/17 16:00 (Heparin Inj) 5,000 units Q12HR SQ 01/16/17 09:00 01/24/17 10:30 ([place] 5-325 Mg) 1 tab Q6H PRN PO 01/16/17 05:15 (Morphine Inj) 2 mg Q3H PRN IV PUSH 01/16/17 05:15 (KCl) 20 meq Q12HR PO 01/16/17 10:45 Hold 01/20/17 00:29 (D50w (Vial) Inj) 50 ml UNSCH PRN IV 01/19/17 11:15 (Glucagon Inj) 1 mg UNSCH PRN OTHER 01/19/17 11:15 Thiamine HCl 100 mg 100 mg DAILY PO 01/20/17 09:00 01/24/17 10:30 Sodium Chloride 1,000 ml @ 100 mls/hr Q10H IV 01/20/17 08:15 01/24/17 12:59 (Maxipime Inj/NS Inj) 100 ml @ 200 mls/hr Q24H IV 01/20/17 14:00 01/24/17 12:59 (Levemir Inj) 5 units HS SQ 01/21/17 21:00 01/23/17 21:36 Insulin Detemir 7 units 7 units DAILY SQ 01/22/17 09:00 01/24/17 10:38 Lactated Ringer's 1,000 ml @ 30 mls/hr Q24H PRN IV 01/21/17 16:15 01/24/17 16:14 (NS 500 ml Inj) 500 ml @ 30 mls/hr [id number] PRN IV 01/21/17 16:15 01/24/17 16:14 (Vancomycin Inj) 2,000 mg Q7D IP 01/22/17 16:00 01/22/17 16:00 (Fortaz Inj) 1,000 mg DAILY IP 01/22/17 16:00 01/22/17 16:00 (Catapres) 0.1 mg TID PO 01/23/17 18:00 01/24/17 12:58 Pantoprazole Sodium 40 mg 40 mg Q12H IV PUSH 01/23/17 21:00 01/24/17 10:30 (Magnesium Sulfate 1 Gm Premix) 100 ml @ 100 mls/hr ONCE ONCE IV 01/24/17 12:45 01/24/17 13:44 A/P Assessment and Plan SBP/ Elevated lipase/ Sepsis Presented with abdominal pain, vomiting and diarrhea. Found to have lactic acidosis. CT abdomen and pelvis noncontrast with normal gallbladder, liver, pancreas. Triglyceride level elevated but not contributory, 290. No prior h/o pancreatitis. There is thickening of stomach noted on CT abd/pelvis and may need EGD at some point though could be done as outpatient. Peritoneal fluid initially negative for SBP, but repeat sample indicative of SBP. Symptoms appear to be resolved. Still spiking fevers. Echo revealed evidence of vegetation on the mitral valve. Blood cultures with no growth at this time. Cardiology consult appreciated. ROBYN performed 01/21/17. Negative for endocarditis. - Protonix. - IV antibiotics per ID. - repeat panculture. Hematemesis One episode 01/23/17. GI consult appreciated. - EGD scheduled for Thursday. - IV PPI. - Follow CBC and transfuse if hemoglobin is less than 7. Acute respiratory alkalosis/ COPD Alkalosis likely compensatory for metabolic acidosis. Pt was previously on prednisone, unclear if secondary to COPD. He smokes a pack every few days. Breathing is stable at this point. S/p prednisone. - smoking cessation instruction. - oxygen as needed. - encourage ambulation. Hypertension The pt has been hypotensive, now hypertensive. Stable. - resume clonidine at a lower dose and resume amlodipine. Increase clonidine as needed. Chronic anemia Likely s/t chronic disease. - follow CBC and transfuse as needed. Sinus tachycardia Multifactorial. - IVFs. - telemetry. Diabetes mellitus Poorly controlled. - low dose dose insulin sliding scale. Increase long-acting to Levemir 7 units daily, 5 units HS. Secondary hyperparathyroidism S/t renal disease. - Calcitriol 0.25 mg po daily, calcium acetate 667 mg po tid. PPx: Heparin Discharge Planning Awaiting clinical improvement Saud German DO Jan 24, 2017 13:07
--- NOTE | 2017-01-24 13:10 | HHI.IDPN ---
Subjective Subjective Remarks cont to have fevers, low grade, < 100 no new co denies nausea, vomiting Antibiotics vanco IP cefepime IP Allergies: Coded Allergies: Aspirin (Unverified Allergy, Unknown, 01/15/17) HEP C Objective . Vital Signs Date Time Temp Pulse Resp B/P Pulse Ox O2 Delivery O2 Flow Rate FiO2 01/24/17 12:00 99.8 118 16 145/84 99 01/24/17 08:00 100.0 118 17 146/82 100 01/24/17 04:53 148/68 01/24/17 01:00 156/88 01/24/17 00:00 99.7 115 20 166/93 100 01/23/17 20:00 Room Air 01/23/17 20:00 99.3 116 20 88/ 100 01/23/17 20:00 121 01/23/17 16:00 99.6 127 20 149/91 99 01/23/17 01/23/17 01/24/17 15:00 23:00 07:00 Intake Total 450 ml 1246 ml Output Total 1885 ml 400 ml 500 ml Balance -1435 ml -400 ml 746 ml Intake Oral 450 ml 240 ml IV Total 1006 ml Output Urine Total 900 ml 400 ml 500 ml Hemodialysis 985 ml # Bowel Movements 1 . Laboratory Tests Test 01/23/17 01/23/17 01/24/17 08:21 16:39 07:10 White Blood Count 13.2 TH/MM3 13.0 TH/MM3 11.3 TH/MM3 Red Blood Count 2.52 MIL/MM3 2.30 MIL/MM3 2.40 MIL/MM3 Hemoglobin 7.7 GM/DL 7.0 GM/DL 7.2 GM/DL Hematocrit 23.7 % 21.7 % 22.5 % Mean Corpuscular Volume 94.2 FL 94.5 FL 93.8 FL Mean Corpuscular Hemoglobin 30.7 PG 30.3 PG 29.9 PG Mean Corpuscular Hemoglobin 32.6 % 32.1 % 31.8 % Concent Red Cell Distribution Width 16.5 % 16.6 % 17.0 % Platelet Count 241 TH/MM3 220 TH/MM3 219 TH/MM3 Mean Platelet Volume 7.8 FL 7.9 FL 8.1 FL Laboratory Tests Test 01/22/17 01/23/17 01/24/17 16:08 08:21 07:10 Lactic Acid Level 2.3 mmol/L 1.3 mmol/L Sodium Level 142 MEQ/L 143 MEQ/L Potassium Level 4.3 MEQ/L 3.9 MEQ/L Chloride Level 111 MEQ/L 111 MEQ/L Carbon Dioxide Level 20.4 MEQ/L 22.4 MEQ/L Anion Gap 11 MEQ/L 10 MEQ/L Blood Urea Nitrogen 34 MG/DL 29 MG/DL Creatinine 6.36 MG/DL 6.10 MG/DL Estimat Glomerular Filtration 11 ML/MIN 11 ML/MIN Rate Random Glucose 120 MG/DL 121 MG/DL Calcium Level 7.4 MG/DL 8.1 MG/DL Protein Corrected Calcium 8.2 MG/DL Total Protein 5.7 GM/DL Magnesium Level 1.3 MG/DL Microbiology Date/Time Procedure Status Source Growth 01/23/17 12:01 Aerobic Blood Culture - Preliminary Resulted Blood Peripheral NO GROWTH IN 1 DAY 01/23/17 12:01 Anaerobic Blood Culture - Preliminary Resulted Blood Peripheral NO GROWTH IN 1 DAY 01/23/17 12:25 Aerobic Blood Culture - Preliminary Resulted Blood Peripheral NO GROWTH IN 1 DAY 01/23/17 12:25 Anaerobic Blood Culture - Preliminary Resulted Blood Peripheral NO GROWTH IN 1 DAY Imaging Last Impressions Chest X-Ray 01/23/17 0000 Signed Impressions: Service Date/Time: Monday, January 23, 2017 11:42 - CONCLUSION: 1. No acute abnormality or significant interval change. González Mederos MD Lung Scan-V Nuclear Medicine 01/16/17 0000 Signed Impressions: Service Date/Time: Monday, January 16, 2017 15:38 - CONCLUSION: Low probability for pulmonary embolism. Edgardo Goldstein MD FACR Lower Extremity Ultrasound 01/16/17 0000 Signed Impressions: Service Date/Time: Monday, January 16, 2017 08:17 - CONCLUSION: Normal examination. Satinder Khanna Jr., MD Abdomen/Pelvis CT 01/15/17 0000 Signed Impressions: Service Date/Time: January 22:54 - CONCLUSION: 1. Patient is on peritoneal dialysis. There is small moderate ascites, increased from before. No loculated fluid. 2. Decreased gastric wall thickening, now mild. Nasogastric tube has been removed. 3. No obstruction or perceptible acute inflammatory changes seen of the gastrointestinal tract. Juan Mercado MD Physical Exam CONSTITUTIONAL/GENERAL: This is an adequately nourished patient, in no apparent distress. TUBES/LINES/DRAINS: SKIN: No jaundice, rashes, or lesions. . Skin temperature appropriate. Not diaphoretic. EYES: Pupils equal and round and reactive. Extraocular motions intact. No scleral icterus. No injection or drainage. Fundi not examined. NECK: Trachea midline. Supple, nontender. No palpable thyroid enlargement or nodularity. CARDIOVASCULAR: Regular rate and rhythm without murmurs, gallops, or rubs. No JVD. Peripheral pulses symmetric. RESPIRATORY/CHEST: Symmetric, unlabored respirations. Clear to auscultation. Breath sounds equal bilaterally. No wheezes, rales, or rhonchi. GASTROINTESTINAL: Abdomen soft, non-tender, mildly distended. No hepato- splenomegaly, or palpable masses. No guarding. Bowel sounds present. Tenkoff in place -site [place] GENITOURINARY: Without palpable bladder distension. MUSCULOSKELETAL: Extremities without clubbing, cyanosis, or edema. NEUROLOGICAL: Awake and alert. Motor and sensory grossly within normal limits. Follows commands. Clear speech. Moves all extremities. PSYCHIATRIC: No obvious anxiety/depression. no apparent hallucinations or other psychotic thought process. Assessment & Plan Remarks FUO - - ROBYN negative - HIV neg - CMV, crypto - neg - all clx negative up to date - Procalcitonine high, but pt is in ESRD - diff to interprete - small leukocyutosis as well - RICO neg Leukocytosis, mild - improving lactic acidosis -- going down suspected PD related peritonitis, - neg routine clx @ 48 hrs Poorly controlled DM Immunosuppressed: high dose d sterroids (pt is unaware for what disease and for how long he is taking it "I just take what the doctor tells me"): still unclear the indication for prednisone - Prednisone stopped HCV Elevated lipase, but no abd pain to suggest pancreatitis and no CT changes New issue - hematoemesis, resolved ? post procedure - he has gastric wall thickening REC's: cont cefepime, vanco IP - fu repeat PD cath fluid clx, AFB, fungal untill final - agree with GI consult - monoitor fevers, WBC dw Tosha Lopez MD Jan 24, 2017 13:10
--- NOTE | 2017-01-24 14:38 | HHI.GIFU ---
Subjective Remarks Pt resting in bed, no complaints. (Fiorella Billings) Objective Vitals I&O Vital Signs Date Time Temp Pulse Resp B/P Pulse Ox O2 Delivery O2 Flow Rate FiO2 01/24/17 12:00 99.8 118 16 145/84 99 01/24/17 08:00 100.0 118 17 146/82 100 01/24/17 04:53 148/68 01/24/17 01:00 156/88 01/24/17 00:00 99.7 115 20 166/93 100 01/23/17 20:00 Room Air 01/23/17 20:00 99.3 116 20 88/ 100 01/23/17 20:00 121 01/23/17 16:00 99.6 127 20 149/91 99 I/O 01/23/17 01/23/17 01/23/17 01/24/17 01/24/17 01/24/17 07:00 15:00 23:00 07:00 15:00 23:00 Intake Total 920 ml 450 ml 1246 ml Output Total 400 ml 1885 ml 400 ml 500 ml 1400 ml Balance 520 ml -1435 ml -400 ml 746 ml -1400 ml Intake Oral 120 ml 450 ml 240 ml IV Total 800 ml 1006 ml Output Urine Total 400 ml 900 ml 400 ml 500 ml Peritoneal Fluid 1400 ml Hemodialysis 985 ml # Bowel Movements 0 1 Laboratory Laboratory Tests Test 01/23/17 01/24/17 16:39 07:10 White Blood Count 13.0 11.3 Red Blood Count 2.30 2.40 Hemoglobin 7.0 7.2 Hematocrit 21.7 22.5 Mean Corpuscular Volume 94.5 93.8 Mean Corpuscular Hemoglobin 30.3 29.9 Mean Corpuscular Hemoglobin 32.1 31.8 Concent Red Cell Distribution Width 16.6 17.0 Platelet Count 220 219 Mean Platelet Volume 7.9 8.1 Sodium Level 143 Potassium Level 3.9 Chloride Level 111 Carbon Dioxide Level 22.4 Anion Gap 10 Blood Urea Nitrogen 29 Creatinine 6.10 Estimat Glomerular Filtration 11 Rate Random Glucose 121 Calcium Level 8.1 Magnesium Level 1.3 Date/Time Procedure Status Source Growth 01/23/17 12:25 Aerobic Blood Culture - Preliminary Resulted Blood Peripheral NO GROWTH IN 1 DAY 01/23/17 12:25 Anaerobic Blood Culture - Preliminary Resulted Blood Peripheral NO GROWTH IN 1 DAY 01/20/17 17:20 Gram Stain - Final Complete Fluid Peritoneal Fluid 01/20/17 17:20 Body Fluid Culture - Final Complete Fluid Peritoneal Fluid NO GROWTH IN 72 HRS.--AEROBICALLY OR ... 01/20/17 17:20 Fungal Smear - Final Resulted Fluid Peritoneal Fluid NO FUNGAL ELEMENTS SEEN. 01/20/17 17:20 Fungal Culture Resulted Fluid Peritoneal Fluid Pending 01/20/17 17:20 Acid Fast Stain - Final Resulted Fluid Peritoneal Fluid NO ACID FAST BACILLI SEEN 01/20/17 17:20 Mycobacterial Culture Resulted Fluid Peritoneal Fluid Pending Physical Exam HEENT: PERRL; atraumatic; no jaundice. CHEST: CTA CARDIAC: RRR ABDOMEN: Soft, mildly distended, nontender; no hepatosplenomegaly; bowel sounds are present in all four quadrants. PD cath dressing clean. EXTREMITIES: No clubbing, cyanosis, or edema. SKIN: Normal; no rash; no jaundice. 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 (Fiorella Billings) Assessment and Plan Plan ASSESSMENT - anemia - Hgb 7.2, stable since - hematemesis - 1 x episode maroon blood in emesis 2 dago - elevated lipase - was 2000 on admission, since has decreased. Pt denies any abd pain now or prior to admission. He did have n/v. - leukocytosis - improving, 11.3 SBP? on abx. PLAN - EGD thursday - obtain consents - NPO after midnight - monitor HH - transfuse prn - notify GI of active bleeding - supportive care - further recommendations to follow This pt seen by myself and Dr Bhatt and this note is written on his behalf ( Fiorella Billings) Physician Comments Patient seen and examined Agree with above Continue with current supportive care Monitor labs Plan for an EGD tomorrow (Hao Bhatt MD) Fiorella Billings Jan 24, 2017 14:38 Hao Bhatt MD Jan 24, 2017 15:28
[2017-01-24 18:19] LABS: HEMATOCRIT 23.2 % (39.0-51.0); MEAN CELL VOLUME 94.8 FL (80.0-100.0); MEAN CORPUSCULAR HEMOGLOBIN 29.7 PG (27.0-34.0); MEAN CORPUSCULAR HGB CONC 31.4 % (32.0-36.0); PLATELET COUNT 241 TH/MM3 (150-450); RED BLOOD COUNT 2.44 MIL/MM3 (4.50-5.90); RED CELL DISTRIBUTION WIDTH 16.7 % (11.6-17.2); REVIEW FLAG FINAL; WHITE BLOOD COUNT 11.9 TH/MM3 (4.0-11.0)
[2017-01-24] MEDS: ACETAMINOPHEN 325 MG TAB PO PRN (18:57)
[2017-01-25] VITALS (8 sets, daily range): BP systolic 106–165; BP diastolic 56–96; PULSE 105–128; RESP 16–20; TEMP 98.7–99.9; O2SAT 97–100
[2017-01-25] MEDS: CHLORHEXIDINE GLUCONATE 2 % 1 PACK (2 CLOTHS) TOP SCH (03:59)
[2017-01-25] MEDS: INSULIN ASPART SUPPLEMENTAL SCALE SQ SCH ×4 (06:28→21:00)
[2017-01-25 08:42] LABS: MEAN CELL VOLUME 93.8 FL (80.0-100.0); PLATELET COUNT 232 TH/MM3 (150-450); RED BLOOD COUNT 2.35 MIL/MM3 (4.50-5.90); RED CELL DISTRIBUTION WIDTH 17.2 % (11.6-17.2); REVIEW FLAG FINAL; WHITE BLOOD COUNT 10.2 TH/MM3 (4.0-11.0)
[2017-01-25] MEDS: SODIUM CHLORIDE 0.9% FLUSH 10 ML FLUSH SCH ×2 (08:52→21:00)
[2017-01-25] MEDS: amLODIPine BESYLATE 5 MG TAB PO SCH ×2 (08:53→21:21)
[2017-01-25] MEDS: cloNIDine HCL 0.1 MG TAB PO SCH ×3 (08:53→18:31)
[2017-01-25] MEDS: SODIUM CHLOR 0.9% 1000 ML INJ 1,000 ML IV SCH ×2 (08:53→18:32)
[2017-01-25] MEDS: CALCIUM ACETATE 667 MG CAP PO SCH ×3 (08:54→18:30)
[2017-01-25] MEDS: DOCUSATE SODIUM 50 MG/SENNA 8.6 MG TAB PO SCH ×2 (08:54→21:00)
[2017-01-25] MEDS: PANTOPRAZOLE SOD 40 MG DELAYED RELEASE TAB PO SCH (08:55)
[2017-01-25] MEDS: CALCITRIOL 0.25 MCG CAP PO SCH (08:55)
[2017-01-25] MEDS: THIAMINE HCL 100 MG TAB PO SCH (08:56)
[2017-01-25] MEDS: INSULIN DETEMIR 100 UNITS/ML VIAL SQ SCH ×3 (08:56→21:31)
[2017-01-25] MEDS: HEPARIN SODIUM - SQ 10,000 UNITS/ML VIAL SQ SCH ×2 (08:56→21:21)
[2017-01-25 09:26] LABS: BICARBONATE 21.5 MEQ/L (21.0-32.0); MAGNESIUM 1.5 MG/DL (1.5-2.5); POTASSIUM 3.8 MEQ/L (3.5-5.1)
[2017-01-25 09:39] LABS: CALCIUM-PROTEIN CORRECTED 8.2 MG/DL (8.5-10.1)
--- NOTE | 2017-01-25 09:44 | HHI.NPPN ---
Subjective History of Present Illness 61-year-old black male with history of end-stage renal disease, hypertension, new onset of diabetes he was admitted last time with severe hyperglycemia, he was discharge home and he said he did not know how to take insulin and has not taken insulin him back with some abdominal pain, hyperglycemia and received peritoneal dialysis culture has been pending total WBC count was 120 with only 8 % neutrophils. Additional Remarks low grade fever. PD carried out. Review of Systems General Constitutional: Fatigue Cardiovascular Cardiac: AGUILAR Objective Data Data 01/24/17 01/25/17 19:00 07:00 Intake Total 1340 ml 480 ml Output Total 1825 ml 950 ml Balance -485 ml -470 ml Intake Oral 480 ml 480 ml IV Total 860 ml Output Urine Total 425 ml 950 ml Peritoneal Fluid 1400 ml # Voids 2 # Bowel Movements 1 Vital Signs Date Time Temp Pulse Resp B/P Pulse Ox O2 Delivery O2 Flow Rate FiO2 01/25/17 08:00 99.7 118 20 145/84 97 01/25/17 04:00 Room Air 01/25/17 04:00 99.7 114 16 165/92 99 01/25/17 00:00 Room Air 01/25/17 00:00 98.7 106 16 106/56 100 01/24/17 20:00 99.5 113 18 133/83 100 01/24/17 20:00 112 01/24/17 19:14 Room Air 01/24/17 16:00 101.1 111 16 157/88 100 01/24/17 12:00 99.8 118 16 145/84 99 01/24/17 10:43 Room Air 01/24/17 10:43 119 -: 01/25/17 0751 01/25/17 0757 Physical Exam General Appearance: Well Nourished, No Acute Distress, Comfortable Eyes Eye Exam: Pupils Equal Throat Throat Exam: Oral Mucosa Chapman & Moist Neck Neck Exam: Neck Supple Pulmonary Resp Exam: Breath Sounds Equal, No Distress, Decreased Bases Cardiology CV Exam: Tachycardia Gastrointestinal/Abdomen GI Exam: Soft, Non-Tender, Bowel Sounds Present, Distended (with PD catheter in place.) Extremeties Extremities Exam: Trace Edema Neurologic Neuro Exam: Alert, Awake, Oriented Psychiatric Psych Exam: Appropriate Responses Assessment/Plan Problem List: (1) ESRD (end stage renal disease) Plan: Patient is on peritoneal dialysis, Using 2.5 % dextrose and 1.5%, 1800 ml fill volume, with last fill of 1500 ml of 1.5%, dwell time 6 hours. Last fill contains Fortaz. Cultures have been negative. Discussed with Dr. Mitchell. I have stopped IV Maxipime as he is receiving IP Fortaz. (2) Lactic acidosis Plan: due to infection/sepsis. (3) HTN (hypertension) Plan: Continue to monitor (4) Diabetic hyperosmolar non-ketotic state Plan: Blood sugar is acceptable. Problem Qualifiers (1) HTN (hypertension): Qualified Code: I10 - Essential hypertension Berry Murdock MD Jan 25, 2017 09:44
--- NOTE | 2017-01-25 10:35 | HHI.PR ---
Subjective Remarks Follow-up FUO. MAXIMUM TEMPERATURE 101. Patient feels okay currently nothing by mouth for EGD today. No further GI bleed. Patient feels good no complaints. Discussed with RN Objective Vitals Vital Signs Date Time Temp Pulse Resp B/P Pulse Ox O2 Delivery O2 Flow Rate FiO2 01/25/17 08:00 99.7 118 20 145/84 97 01/25/17 04:00 Room Air 01/25/17 04:00 99.7 114 16 165/92 99 01/25/17 00:00 Room Air 01/25/17 00:00 98.7 106 16 106/56 100 01/24/17 20:00 99.5 113 18 133/83 100 01/24/17 20:00 112 01/24/17 19:14 Room Air 01/24/17 16:00 101.1 111 16 157/88 100 01/24/17 12:00 99.8 118 16 145/84 99 01/24/17 10:43 Room Air 01/24/17 10:43 119 I/O 01/24/17 01/24/17 01/24/17 01/25/17 01/25/17 01/25/17 07:00 15:00 23:00 07:00 15:00 23:00 Intake Total 1246 ml 1340 ml 480 ml 0 ml Output Total 500 ml 1825 ml 400 ml 550 ml Balance 746 ml -485 ml 80 ml -550 ml Intake Oral 240 ml 480 ml 480 ml 0 ml IV Total 1006 ml 860 ml Output Urine Total 500 ml 425 ml 400 ml 550 ml Peritoneal Fluid 1400 ml # Voids 2 # Bowel Movements 1 0 Result Diagram: 01/25/17 0751 01/25/17 0757 Imaging Last Impressions Chest X-Ray 01/23/17 0000 Signed Impressions: Service Date/Time: Monday, January 23, 2017 11:42 - CONCLUSION: 1. No acute abnormality or significant interval change. González Mederos MD Lung Scan-VQ Nuclear Medicine 01/16/17 0000 Signed Impressions: Service Date/Time: Monday, January 16, 2017 15:38 - CONCLUSION: Low probability for pulmonary embolism. Edgardo Goldstein MD FACR Lower Extremity Ultrasound 01/16/17 0000 Signed Impressions: Service Date/Time: Monday, January 16, 2017 08:17 - CONCLUSION: Normal examination. Satinder Khanna Jr., MD Abdomen/Pelvis CT 01/15/17 0000 Signed Impressions: Service Date/Time: January 22:54 - CONCLUSION: 1. Patient is on peritoneal dialysis. There is small moderate ascites, increased from before. No loculated fluid. 2. Decreased gastric wall thickening, now mild. Nasogastric tube has been removed. 3. No obstruction or perceptible acute inflammatory changes seen of the gastrointestinal tract. Juan Mercado MD Objective Remarks GENERAL: This is a well-nourished, well-developed patient, in no apparent distress. SKIN: No rashes, warm and dry HEAD: Atraumatic. Normocephalic. EYES: Pupils equal round and reactive. Extraocular motions intact. No scleral icterus. ENT: Nose without bleeding, or drainage, Airway patent. NECK: Trachea midline. Supple CARDIOVASCULAR: Tachycardic without murmurs, gallops or rubs. RESPIRATORY: Clear to auscultation bilaterally. No wheezing, rales or rhonchi. GASTROINTESTINAL: Abdomen soft, non-tender, nondistended. Positive bowel sounds. MUSCULOSKELETAL: Extremities without clubbing, cyanosis, edema. Pedal pulses appreciated. NEUROLOGICAL: Awake and alert. Moves all extremity. Normal speech. PSYCH: Slightly flattened affect. Procedures EGD A/P Problem List: (1) ESRD (end stage renal disease) ICD Code: N18.6 Status: Acute (2) SBP (spontaneous bacterial peritonitis) ICD Code: K65.2 Status: Acute Assessment and Plan FUO-suspected PDP related peritonitis Presented with abdominal pain, vomiting and diarrhea. Found to have lactic acidosis. CT abdomen and pelvis noncontrast with normal gallbladder, liver, pancreas. Triglyceride level elevated but not contributory, 290. No prior h/o pancreatitis. There is thickening of stomach noted on CT abd/pelvis and EGD scheduled for today. Peritoneal fluid initially negative for SBP, but repeat sample indicative of SBP. Symptoms appear to be resolved. Still spiking fevers. Echo revealed evidence of vegetation on the mitral valve. Blood cultures with no growth at this time. Cardiology consult appreciated. ROBYN performed . Negative for endocarditis. - Protonix. - IV antibiotics per ID IV cefepime and in the peritoneal vancomycin. - repeat panculture negative to date. Hematemesis One episode 01/23/17. GI consult appreciated. - EGD scheduled today. - PPI. - Follow CBC and transfuse if hemoglobin is less than 7. Acute respiratory alkalosis/ COPD Alkalosis likely compensatory for metabolic acidosis. Pt was previously on prednisone, unclear if secondary to COPD. He smokes a pack every few days. Breathing is stable at this point. S/p prednisone. - smoking cessation instruction. - oxygen as needed. - encourage ambulation. Hypertension The pt has been hypotensive, now hypertensive. Stable. - resume clonidine at a lower dose and resume amlodipine. Increase clonidine as needed. Chronic anemia Likely s/t chronic disease. - follow CBC and transfuse as needed. Sinus tachycardia Multifactorial. - IVFs. - telemetry. Consider beta tory Diabetes mellitus Poorly controlled. - low dose dose insulin sliding scale. Continue Levemir 7 units daily, 5 units HS. Secondary hyperparathyroidism S/t renal disease. - Calcitriol 0.25 mg po daily, calcium acetate 667 mg po tid. PPx: Heparin Discharge Planning Not stable for discharge Dean Nuñez MD Jan 25, 2017 10:35
[2017-01-25] MEDS ORDERED: PROPOFOL 200 MG/20 ML AMP IV ONE (13:42)
--- NOTE | 2017-01-25 14:11 | PD.PROCEDR ---
GI Procedure REFERRING PHYSICIAN Jeremias PROCEDURE PERFORMED EGD with biopsy INDICATION FOR PROCEDURE Nausea vomiting hematemesis PROCEDURE: The procedure, risks and benefits were discussed with Mr. Ramirez and informed consent was obtained. Anesthesia sedated him with Diprivan. He was placed in the left lateral decubitus position. EGD: The Pentax videoscope was introduced through the oropharynx and advanced to the second portion of the duodenum under direct visualization. Retroflexion was performed in the stomach. FINDINGS: The esophagus there was distal mucosal friability with erythema suggestive of esophagitis this was biopsied no ulcerations or erosions The stomach there was antral mucosal erythema with some edema this was biopsied otherwise the rest of the stomach was unremarkable The duodenum this was normal ESTIMATED BLOOD LOSS: None SPECIMENS REMOVED: Esophageal and gastric COMPLICATIONS: None IMPRESSION: Esophagitis probably secondary to nausea and vomiting Gastritis PLAN: Await biopsy Continue PPI Continue with current supportive care Monitor labs and correct electrolytes Hao Bhatt MD Jan 25, 2017 14:11
[2017-01-26 00:30] VITALS: BP 132/76; PULSE 110; RESP 18; TEMP 99; O2SAT 99
[2017-01-26 04:00] VITALS: BP 120/75; PULSE 101; RESP 20; TEMP 98; O2SAT 99
[2017-01-26] MEDS: CHLORHEXIDINE GLUCONATE 2 % 1 PACK (2 CLOTHS) TOP SCH (04:00)
[2017-01-26] MEDS: SODIUM CHLOR 0.9% 1000 ML INJ 1,000 ML IV SCH (06:00)
[2017-01-26] MEDS: INSULIN ASPART SUPPLEMENTAL SCALE SQ SCH ×4 (06:24→21:00)
[2017-01-26 07:38] LABS: HEMATOCRIT 23.1 % (39.0-51.0); MEAN CELL VOLUME 93.2 FL (80.0-100.0); MEAN CORPUSCULAR HEMOGLOBIN 30.1 PG (27.0-34.0); MEAN CORPUSCULAR HGB CONC 32.3 % (32.0-36.0); PLATELET COUNT 249 TH/MM3 (150-450); RED BLOOD COUNT 2.48 MIL/MM3 (4.50-5.90); RED CELL DISTRIBUTION WIDTH 16.7 % (11.6-17.2); REVIEW FLAG FINAL; WHITE BLOOD COUNT 8.9 TH/MM3 (4.0-11.0)
[2017-01-26 07:57] LABS: ANION GAP 9 MEQ/L (5-15); AST (GOT) 29 U/L (15-37); BICARBONATE 23.2 MEQ/L (21.0-32.0); BLOOD UREA NITROGEN 23 MG/DL (7-18); CHLORIDE 110 MEQ/L (98-107); GLOMERULAR FILTRATION RATE 11 ML/MIN (>89); POTASSIUM 3.6 MEQ/L (3.5-5.1); SODIUM (NA) 142 MEQ/L (136-145)
[2017-01-26 08:00] VITALS: BP 144/79; PULSE 102; PULSE 111; RESP 18; TEMP 99.3; O2SAT 100
[2017-01-26 08:05] LABS: ALKALINE PHOSPHATASE 238 U/L (45-117); ALT (GPT) 22 U/L (12-78); TOTAL BILIRUBIN ADULT 0.4 MG/DL (0.2-1.0)
[2017-01-26] MEDS: INSULIN DETEMIR 100 UNITS/ML VIAL SQ SCH ×2 (09:00→23:03)
[2017-01-26] MEDS: PANTOPRAZOLE SOD 40 MG DELAYED RELEASE TAB PO SCH (09:04)
[2017-01-26] MEDS: THIAMINE HCL 100 MG TAB PO SCH (09:04)
[2017-01-26] MEDS: DOCUSATE SODIUM 50 MG/SENNA 8.6 MG TAB PO SCH ×2 (09:04→21:00)
[2017-01-26] MEDS: cloNIDine HCL 0.1 MG TAB PO SCH ×3 (09:04→17:12)
[2017-01-26] MEDS: CALCIUM ACETATE 667 MG CAP PO SCH ×3 (09:04→17:16)
[2017-01-26] MEDS: amLODIPine BESYLATE 5 MG TAB PO SCH ×2 (09:04→23:00)
[2017-01-26] MEDS: CALCITRIOL 0.25 MCG CAP PO SCH (09:04)
[2017-01-26] MEDS: HEPARIN SODIUM - SQ 10,000 UNITS/ML VIAL SQ SCH ×2 (09:05→23:01)
[2017-01-26] MEDS: SODIUM CHLORIDE 0.9% FLUSH 10 ML FLUSH SCH ×2 (09:11→23:44)
[2017-01-26 12:00] VITALS: BP 136/78; PULSE 107; RESP 18; TEMP 99.9; O2SAT 100
--- NOTE | 2017-01-26 12:44 | HHI.PR ---
Subjective Remarks Follow-up GI bleed. No further GI bleeding. Tolerated EGD. Results discussed with patient. Discussed with RN and ID, possible discharge in the morning if no fever Objective Vitals Vital Signs Date Time Temp Pulse Resp B/P Pulse Ox O2 Delivery O2 Flow Rate FiO2 01/26/17 12:00 99.9 107 18 136/78 100 01/26/17 08:00 99.3 111 18 144/79 100 01/26/17 04:00 98.0 101 20 120/75 99 01/26/17 00:30 99.0 110 18 132/76 99 01/25/17 20:30 99.9 113 19 136/82 100 01/25/17 20:00 Room Air 01/25/17 20:00 105 01/25/17 16:00 99.1 128 20 163/96 99 01/25/17 14:11 105 18 128/74 100 01/25/17 14:01 105 18 126/73 97 01/25/17 13:51 98.7 105 18 109/70 93 I/O 01/25/17 01/25/17 01/25/17 01/26/17 01/26/17 01/26/17 07:00 15:00 23:00 07:00 15:00 23:00 Intake Total 0 ml 1708 ml 400 ml 100 ml Output Total 550 ml 475 ml 0 ml 0 ml 1520 ml Balance -550 ml 1233 ml 400 ml 100 ml -1520 ml Intake Oral 0 ml 120 ml 400 ml 100 ml IV Total 1488 ml Other 100 ml Output Urine Total 550 ml 475 ml 0 ml 0 ml Peritoneal Fluid 1520 ml # Bowel Movements 0 0 0 0 Result Diagram: 01/26/17 0707 01/26/17 0707 Imaging Last Impressions Chest X-Ray 01/23/17 0000 Signed Impressions: Service Date/Time: Monday, January 23, 2017 11:42 - CONCLUSION: 1. No acute abnormality or significant interval change. González Mederos MD Lung Scan-VQ Nuclear Medicine 01/16/17 0000 Signed Impressions: Service Date/Time: Monday, January 16, 2017 15:38 - CONCLUSION: Low probability for pulmonary embolism. Edgardo Goldstein MD FACR Lower Extremity Ultrasound 01/16/17 0000 Signed Impressions: Service Date/Time: Monday, January 16, 2017 08:17 - CONCLUSION: Normal examination. Satinder Khanna Jr., MD Abdomen/Pelvis CT 01/15/17 0000 Signed Impressions: Service Date/Time: January 22:54 - CONCLUSION: 1. Patient is on peritoneal dialysis. There is small moderate ascites, increased from before. No loculated fluid. 2. Decreased gastric wall thickening, now mild. Nasogastric tube has been removed. 3. No obstruction or perceptible acute inflammatory changes seen of the gastrointestinal tract. Juan Mercado MD Objective Remarks GENERAL: This is a well-nourished, well-developed patient, in no apparent distress. SKIN: No rashes, warm and dry HEAD: Atraumatic. Normocephalic. EYES: Pupils equal round and reactive. Extraocular motions intact. No scleral icterus. ENT: Nose without bleeding, or drainage, Airway patent. NECK: Trachea midline. Supple CARDIOVASCULAR: Improving tachycardia without murmurs, gallops or rubs. RESPIRATORY: Clear to auscultation bilaterally. No wheezing, rales or rhonchi. GASTROINTESTINAL: Abdomen soft, non-tender, nondistended. Positive bowel sounds. MUSCULOSKELETAL: Extremities without clubbing, cyanosis, edema. Pedal pulses appreciated. NEUROLOGICAL: Awake and alert. Moves all extremity. Normal speech. PSYCH: Slightly flattened affect. Procedures EGD A/P Problem List: (1) ESRD (end stage renal disease) ICD Code: N18.6 Status: Acute (2) SBP (spontaneous bacterial peritonitis) ICD Code: K65.2 Status: Acute Assessment and Plan FUO-suspected PDP related peritonitis Presented with abdominal pain, vomiting and diarrhea. Found to have lactic acidosis. CT abdomen and pelvis noncontrast with normal gallbladder, liver, pancreas. Triglyceride level elevated but not contributory, 290. No prior h/o pancreatitis. There is thickening of stomach noted on CT abd/pelvis and EGD scheduled for today. Peritoneal fluid initially negative for SBP, but repeat sample indicative of SBP. Symptoms appear to be resolved. Still spiking fevers. Echo revealed evidence of vegetation on the mitral valve. Blood cultures with no growth at this time. Cardiology consult appreciated. ROBYN performed . Negative for endocarditis. - Protonix. - IP Fortaz and vancomycin. Discussed with ID, possible discharge in the morning if no fever - repeat panculture negative to date. Hematemesis One episode 01/23/17. GI consult appreciated. - EGD showed esophagitis and gastritis. Continue PPI. Antireflux mechanisms discussed with the patient. Follow up pathology - PPI. - Follow CBC and transfuse if hemoglobin is less than 7. Acute respiratory alkalosis/ COPD Alkalosis likely compensatory for metabolic acidosis. Pt was previously on prednisone, unclear if secondary to COPD. He smokes a pack every few days. Breathing is stable at this point. S/p prednisone. - smoking cessation instruction. - oxygen as needed. - encourage ambulation. Hypertension The pt has been hypotensive, now hypertensive. Stable. - resume clonidine at a lower dose and resume amlodipine. Increase clonidine as needed. Chronic anemia Likely s/t chronic disease. - follow CBC and transfuse as needed. Sinus tachycardia Multifactorial. Check TSH - IVFs. - telemetry. Consider beta tory but with caution history of COPD Diabetes mellitus Poorly controlled. - low dose dose insulin sliding scale. Improving hyperglycemia. Continue Levemir 7 units daily, 5 units HS. Secondary hyperparathyroidism S/t renal disease. - Calcitriol 0.25 mg po daily, calcium acetate 667 mg po tid. PPx: Heparin Discharge Planning I spent 35 minutes [id number] with the patient or on the lee discussing the patient's disposition, prognosis, and plan of care with patient's caregivers. Over half the time spent was devoted to counseling the patient regarding care with caregivers Possible discharge in the morning Dean Nuñez MD Jan 26, 2017 12:44
[2017-01-26] MEDS ORDERED: LEVEMIR SQ ×2 (12:48)
[2017-01-26] MEDS ORDERED: PANT40TA3 PO (12:48)
[2017-01-26] MEDS ORDERED: GNP100TA3 PO (12:48)
[2017-01-26] MEDS ORDERED: CLON.1 PO (12:48)
[2017-01-26] MEDS ORDERED: SENN1TAB PO (12:48)
--- NOTE | 2017-01-26 12:49 | HHI.DCPOC ---
Discharge Care Plan Diagnosis: (1) ESRD (end stage renal disease) (2) Abdominal pain Your Health Problems Are: Difficulty with ADL Exercise Tolerance Goals to Promote Your Health * To prevent worsening of your condition and complications * To maintain your health at the optimal level Directions to Meet Your Goals Take your medications as prescribed Follow your dietary instruction Follow activity as directed Keep your appointments as scheduled Take your immunizations and boosters as scheduled If your symptoms worsen call your PCP, if no PCP go to Urgent Care Center or Emergency Room Smoking is Dangerous to Your Health. Avoid second hand smoke Call the 24-hour hour crisis hotline for domestic abuse at Dean Nuñez MD Jan 26, 2017 12:49
--- NOTE | 2017-01-26 13:46 | HHI.NPPN ---
Subjective History of Present Illness 61-year-old black male with history of end-stage renal disease, hypertension, new onset of diabetes he was admitted last time with severe hyperglycemia, he was discharge home and he said he did not know how to take insulin and has not taken insulin him back with some abdominal pain, hyperglycemia and received peritoneal dialysis culture has been pending total WBC count was 120 with only 8 % neutrophils. Additional Remarks low grade fever. PD carried out. Review of Systems General Constitutional: Fatigue Cardiovascular Cardiac: AGUILAR Objective Data Data 01/25/17 01/26/17 19:00 07:00 Intake Total 1708 ml 500 ml Output Total 475 ml 0 ml Balance 1233 ml 500 ml Intake Oral 120 ml 500 ml IV Total 1488 ml Other 100 ml Output Urine Total 475 ml 0 ml # Bowel Movements 0 0 Vital Signs Date Time Temp Pulse Resp B/P Pulse Ox O2 Delivery O2 Flow Rate FiO2 01/26/17 12:00 99.9 107 18 136/78 100 01/26/17 08:00 99.3 111 18 144/79 100 01/26/17 04:00 98.0 101 20 120/75 99 01/26/17 00:30 99.0 110 18 132/76 99 01/25/17 20:30 99.9 113 19 136/82 100 01/25/17 20:00 Room Air 01/25/17 20:00 105 01/25/17 16:00 99.1 128 20 163/96 99 01/25/17 14:11 105 18 128/74 100 01/25/17 14:01 105 18 126/73 97 01/25/17 13:51 98.7 105 18 109/70 93 -: 01/26/17 0707 01/26/17 0707 Physical Exam General Appearance: Well Nourished, No Acute Distress, Comfortable Eyes Eye Exam: Pupils Equal Throat Throat Exam: Oral Mucosa [place] & Moist Neck Neck Exam: Neck Supple Pulmonary Resp Exam: Breath Sounds Equal, No Distress, Decreased Bases Cardiology CV Exam: Tachycardia Gastrointestinal/Abdomen GI Exam: Soft, Non-Tender, Bowel Sounds Present, Distended (with PD catheter in place.) Extremeties Extremities Exam: Trace Edema Neurologic Neuro Exam: Alert, Awake, Oriented Psychiatric Psych Exam: Appropriate Responses Assessment/Plan Problem List: (1) ESRD (end stage renal disease) Plan: Patient is on peritoneal dialysis, Using 2.5 % dextrose and 1.5%, 1800 ml fill volume, with last fill of 1500 ml of 1.5%, dwell time 6 hours. Last fill contains Fortaz. Cultures have been negative. he is receiving IP Fortaz. low grade fever Epo 20 k ordered Hb 7.5 (2) Lactic acidosis Plan: due to infection/sepsis. (3) HTN (hypertension) Plan: Continue to monitor (4) Diabetic hyperosmolar non-ketotic state Plan: Blood sugar is acceptable. Problem Qualifiers (1) HTN (hypertension): Qualified Code: I10 - Essential hypertension Ned Sosa MD Jan 26, 2017 13:46
--- NOTE | 2017-01-26 14:13 | HHI.GIFU ---
Subjective Remarks Resting in bed. No complaints. Tolerating diet. No n/v. No abdominal pain. Hoping to go home today. (Lucille Mojica) Objective Vitals I&O Vital Signs Date Time Temp Pulse Resp B/P Pulse Ox O2 Delivery O2 Flow Rate FiO2 01/26/17 12:00 99.9 107 18 136/78 100 01/26/17 08:00 99.3 111 18 144/79 100 01/26/17 04:00 98.0 101 20 120/75 99 01/26/17 00:30 99.0 110 18 132/76 99 01/25/17 20:30 99.9 113 19 136/82 100 01/25/17 20:00 Room Air 01/25/17 20:00 105 01/25/17 16:00 99.1 128 20 163/96 99 01/25/17 14:11 105 18 128/74 100 I/O 01/25/17 01/25/17 01/25/17 01/26/17 01/26/17 01/26/17 07:00 15:00 23:00 07:00 15:00 23:00 Intake Total 0 ml 1708 ml 400 ml 100 ml Output Total 550 ml 475 ml 0 ml 0 ml 1520 ml Balance -550 ml 1233 ml 400 ml 100 ml -1520 ml Intake Oral 0 ml 120 ml 400 ml 100 ml IV Total 1488 ml Other 100 ml Output Urine Total 550 ml 475 ml 0 ml 0 ml Peritoneal Fluid 1520 ml # Bowel Movements 0 0 0 0 Laboratory Laboratory Tests Test 01/26/17 07:07 White Blood Count 8.9 Red Blood Count 2.48 Hemoglobin 7.5 Hematocrit 23.1 Mean Corpuscular Volume 93.2 Mean Corpuscular Hemoglobin 30.1 Mean Corpuscular Hemoglobin 32.3 Concent Red Cell Distribution Width 16.7 Platelet Count 249 Mean Platelet Volume 8.1 Sodium Level 142 Potassium Level 3.6 Chloride Level 110 Carbon Dioxide Level 23.2 Anion Gap 9 Blood Urea Nitrogen 23 Creatinine 6.11 Estimat Glomerular Filtration 11 Rate Random Glucose 98 Calcium Level 7.6 Total Bilirubin 0.4 Aspartate Amino Transf 29 (AST/SGOT) Alanine Aminotransferase 22 (ALT/SGPT) Alkaline Phosphatase 238 Total Protein 5.1 Albumin 1.6 Thyroid Stimulating Hormone 3.720 3rd Gen Date/Time Procedure Status Source Growth 01/23/17 12:25 Aerobic Blood Culture - Preliminary Resulted Blood Peripheral NO GROWTH IN 3 DAYS 01/23/17 12:25 Anaerobic Blood Culture - Preliminary Resulted Blood Peripheral NO GROWTH IN 3 DAYS Imaging Last Impressions Chest X-Ray 01/23/17 0000 Signed Impressions: Service Date/Time: Monday, January 23, 2017 11:42 - CONCLUSION: 1. No acute abnormality or significant interval change. González Mederos MD Lung Scan-VQ Nuclear Medicine 01/16/17 0000 Signed Impressions: Service Date/Time: Monday, January 16, 2017 15:38 - CONCLUSION: Low probability for pulmonary embolism. Edgardo Goldstein MD FACR Lower Extremity Ultrasound 01/16/17 0000 Signed Impressions: Service Date/Time: Monday, January 16, 2017 08:17 - CONCLUSION: Normal examination. Satinder Khanna Jr., MD Abdomen/Pelvis CT 01/15/17 0000 Signed Impressions: Service Date/Time: January 22:54 - CONCLUSION: 1. Patient is on peritoneal dialysis. There is small moderate ascites, increased from before. No loculated fluid. 2. Decreased gastric wall thickening, now mild. Nasogastric tube has been removed. 3. No obstruction or perceptible acute inflammatory changes seen of the gastrointestinal tract. Juan Mercado MD Physical Exam HEENT: Normocephalic, no jaundice. CHEST: CTA CARDIAC: RRR ABDOMEN: Soft, mildly distended, nontender; no hepatosplenomegaly; bowel sounds are present in all four quadrants. PD cath dressing clean. EXTREMITIES: No clubbing, cyanosis, or edema. SKIN: Normal; no rash; no jaundice. WIRELESS WATCHER: No focal deficits; alert and oriented times three. (Lucille Mojica [facility]) Assessment and Plan Plan ASSESSMENT - GIB with hematemesis. Abdomen/Pelvis CT (01/15/17)----> 1. Patient is on peritoneal dialysis. There is small moderate ascites, increased from before. No loculated fluid. 2. Decreased gastric wall thickening, now mild. Nasogastric tube has been removed. 3. No obstruction or perceptible acute inflammatory changes seen of the gastrointestinal tract. S/P EGD (01/25)-----> Esophagitis probably secondary to nausea and vomiting Gastritis. Pathology pending. PPI. 7.5/23.1. - Anemia secondary to acute blood loss. HH 7.5/.1. - Elevated lipase. Likely related to elevated creatinine, n/v. Improved. - Leukocytosis, resolved. On abx for possible SBP. PLAN - DIAMS - Await pathology - Cont. PPI - Monitor HH - Transfuse prn - Notify GI of active bleeding - Supportive care - FU GUSTAVO 2 weeks - Pt seen and examined by dr. Palacios and myself and this note is written on his behalf (Lucille Mojica) Plan Agree with above note. We will sign off. (Miller Palacios MD) Lucille Mojica Jan 26, 2017 14:13 Miller Palacios MD Jan 26, 2017 18:43
[2017-01-26 16:00] VITALS: BP 166/91; PULSE 115; RESP 18; TEMP 99.9; O2SAT 100
[2017-01-26] MEDS ORDERED: EPOETIN ALFA 20,000 UNITS/ML VIAL SQ ONE (16:00)
--- NOTE | 2017-01-26 16:20 | HHI.IDPN ---
Subjective Subjective Remarks cont to have fevers, low grade, < 100 no new co denies nausea, vomiting feels good Antibiotics vanco IP cefepime IP Allergies: Coded Allergies: Aspirin (Unverified Allergy, Unknown, 01/15/17) HEP C Objective . Vital Signs Date Time Temp Pulse Resp B/P Pulse Ox O2 Delivery O2 Flow Rate FiO2 01/26/17 12:00 99.9 107 18 136/78 100 01/26/17 08:00 96 Room Air 21 01/26/17 08:00 102 01/26/17 08:00 99.3 111 18 144/79 100 01/26/17 04:00 98.0 101 20 120/75 99 01/26/17 00:30 99.0 110 18 132/76 99 01/25/17 20:30 99.9 113 19 136/82 100 01/25/17 20:00 Room Air 01/25/17 20:00 105 01/25/17 01/25/17 01/26/17 15:00 23:00 07:00 Intake Total 1708 ml 400 ml 100 ml Output Total 475 ml 0 ml 0 ml Balance 1233 ml 400 ml 100 ml Intake Oral 120 ml 400 ml 100 ml IV Total 1488 ml Other 100 ml Output Urine Total 475 ml 0 ml 0 ml # Bowel Movements 0 0 0 . Laboratory Tests Test 01/25/17 01/26/17 07:51 07:07 White Blood Count 10.2 TH/MM3 8.9 TH/MM3 Red Blood Count 2.35 MIL/MM3 2.48 MIL/MM3 Hemoglobin 7.1 GM/DL 7.5 GM/DL Hematocrit 22.0 % 23.1 % Mean Corpuscular Volume 93.8 FL 93.2 FL Mean Corpuscular Hemoglobin 30.0 PG 30.1 PG Mean Corpuscular Hemoglobin 32.0 % 32.3 % Concent Red Cell Distribution Width 17.2 % 16.7 % Platelet Count 232 TH/MM3 249 TH/MM3 Mean Platelet Volume 7.8 FL 8.1 FL Laboratory Tests Test 01/25/17 01/26/17 07:57 07:07 Sodium Level 141 MEQ/L 142 MEQ/L Potassium Level 3.8 MEQ/L 3.6 MEQ/L Chloride Level 109 MEQ/L 110 MEQ/L Carbon Dioxide Level 21.5 MEQ/L 23.2 MEQ/L Anion Gap 11 MEQ/L 9 MEQ/L Blood Urea Nitrogen 27 MG/DL 23 MG/DL Creatinine 6.01 MG/DL 6.11 MG/DL Estimat Glomerular Filtration 12 ML/MIN 11 ML/MIN Rate Random Glucose 107 MG/DL 98 MG/DL Calcium Level 7.2 MG/DL 7.6 MG/DL Protein Corrected Calcium 8.2 MG/DL Magnesium Level 1.5 MG/DL Total Protein 5.2 GM/DL 5.1 GM/DL Total Bilirubin 0.4 MG/DL Aspartate Amino Transf 29 U/L (AST/SGOT) Alanine Aminotransferase 22 U/L (ALT/SGPT) Alkaline Phosphatase 238 U/L Albumin 1.6 GM/DL Thyroid Stimulating Hormone 3.720 uIU/ML 3rd Gen Imaging Last Impressions Chest X-Ray 01/23/17 0000 Signed Impressions: Service Date/Time: Monday, January 23, 2017 11:42 - CONCLUSION: 1. No acute abnormality or significant interval change. González Mederos MD Lung Scan-V Nuclear Medicine 01/16/17 0000 Signed Impressions: Service Date/Time: Monday, January 16, 2017 15:38 - CONCLUSION: Low probability for pulmonary embolism. Edgardo Goldstein MD FACR Lower Extremity Ultrasound 01/16/17 0000 Signed Impressions: Service Date/Time: Monday, January 16, 2017 08:17 - CONCLUSION: Normal examination. Satinder Khanna Jr., MD Abdomen/Pelvis CT 01/15/17 0000 Signed Impressions: Service Date/Time: January 22:54 - CONCLUSION: 1. Patient is on peritoneal dialysis. There is small moderate ascites, increased from before. No loculated fluid. 2. Decreased gastric wall thickening, now mild. Nasogastric tube has been removed. 3. No obstruction or perceptible acute inflammatory changes seen of the gastrointestinal tract. Juan Mercado MD Physical Exam CONSTITUTIONAL/GENERAL: This is an adequately nourished patient, in no apparent distress. TUBES/LINES/DRAINS: SKIN: No jaundice, rashes, or lesions. . EYES: No scleral icterus. CARDIOVASCULAR: Regular rate and rhythm without murmurs, gallops, or rubs. No JVD. Peripheral pulses symmetric. RESPIRATORY/CHEST: Symmetric, unlabored respirations. Clear to auscultation. Breath sounds equal bilaterally. No wheezes, rales, or rhonchi. GASTROINTESTINAL: Abdomen soft, non-tender, mildly distended. No hepato- splenomegaly, or palpable masses. No guarding. Bowel sounds present. Tenkoff in place -site [place] MUSCULOSKELETAL: Extremities without clubbing, cyanosis, or edema. NEUROLOGICAL: Awake and alert. Non focal PSYCHIATRIC: No obvious anxiety/depression. no apparent hallucinations or other psychotic thought process. Assessment & Plan Remarks FUO - - ROBYN negative - HIV neg - CMV, crypto - neg - all clx negative up to date - Procalcitonine high, but pt is in ESRD - diff to interprete - small leukocyutosis as well - RICO neg Leukocytosis, mild - resolved lactic acidosis -- resolved suspected PD related peritonitis, - neg routine clx @ 48 hrs Poorly controlled DM Immunosuppressed: high dose d sterroids (pt is unaware for what disease and for how long he is taking it "I just take what the doctor tells me"): still unclear the indication for prednisone - Prednisone stopped HCV Elevated lipase, but no abd pain to suggest pancreatitis and no CT changes New issue - hematoemesis, resolved ? post procedure - sp EGD, path P; esophagitits eseen REC's: cont cefepime, vanco IP x 1 more week to complete 14 days - fu repeat PD cath fluid clx, AFB, fungal untill final - monoitor fevers, WBC dw Tosha Machado MD Jan 26, 2017 16:20
[2017-01-26 20:00] VITALS: BP 149/84; PULSE 101; PULSE 107; RESP 18; TEMP 98.8; O2SAT 96
[2017-01-27] VITALS (8 sets, daily range): BP systolic 117–139; BP diastolic 74–88; PULSE 74–126; RESP 18–20; TEMP 99.3–100.9; O2SAT 94–100
[2017-01-27] MEDS: CHLORHEXIDINE GLUCONATE 2 % 1 PACK (2 CLOTHS) TOP SCH (02:55)
[2017-01-27] MEDS: INSULIN ASPART SUPPLEMENTAL SCALE SQ SCH ×4 (05:33→20:40)
[2017-01-27] MEDS: amLODIPine BESYLATE 5 MG TAB PO SCH ×2 (08:18→20:21)
[2017-01-27] MEDS: DOCUSATE SODIUM 50 MG/SENNA 8.6 MG TAB PO SCH ×2 (08:18→20:21)
[2017-01-27] MEDS: cloNIDine HCL 0.1 MG TAB PO SCH ×3 (08:18→18:00)
[2017-01-27] MEDS: THIAMINE HCL 100 MG TAB PO SCH (08:18)
[2017-01-27] MEDS: PANTOPRAZOLE SOD 40 MG DELAYED RELEASE TAB PO SCH (08:18)
[2017-01-27] MEDS: CALCITRIOL 0.25 MCG CAP PO SCH (08:18)
[2017-01-27] MEDS: CALCIUM ACETATE 667 MG CAP PO SCH ×3 (08:18→18:00)
[2017-01-27] MEDS: SODIUM CHLORIDE 0.9% FLUSH 10 ML FLUSH SCH ×2 (08:24→20:41)
[2017-01-27] MEDS: HEPARIN SODIUM - SQ 10,000 UNITS/ML VIAL SQ SCH ×2 (08:24→20:22)
[2017-01-27] MEDS: METOPROLOL TARTRATE 25 MG TAB PO SCH ×2 (08:29→20:22)
[2017-01-27] MEDS ORDERED: PILL SPLITTER OTHER PRN (09:00)
[2017-01-27] MEDS: INSULIN DETEMIR 100 UNITS/ML VIAL SQ SCH ×2 (09:00→20:23)
--- NOTE | 2017-01-27 12:18 | HHI.PR ---
Subjective Remarks Follow-up FUO Tmax 100.5. Patient has no complaints denies chills, headache, chest pain, shortness of breath, palpitations, UTI symptoms and diarrhea. Discussed with ID and RN Objective Vitals Vital Signs Date Time Temp Pulse Resp B/P Pulse Ox O2 Delivery O2 Flow Rate FiO2 01/27/17 08:00 100.5 126 20 139/86 100 01/27/17 04:00 99.8 107 18 132/76 94 01/27/17 00:00 99.3 105 18 135/84 95 01/26/17 20:00 Room Air 01/26/17 20:00 98.8 101 18 149/84 96 01/26/17 20:00 107 01/26/17 16:00 99.9 115 18 166/91 100 I/O 01/26/17 01/26/17 01/26/17 01/27/17 01/27/17 01/27/17 07:00 15:00 23:00 07:00 15:00 23:00 Intake Total 100 ml 480 ml 360 ml 280 ml Output Total 0 ml 1820 ml 200 ml 400 ml Balance 100 ml -1340 ml 160 ml -120 ml Intake Oral 100 ml 480 ml 360 ml 280 ml Output Urine Total 0 ml 300 ml 200 ml 400 ml Peritoneal Fluid 1520 ml # Bowel Movements 0 0 Result Diagram: 01/26/1707 01/26/17706 Imaging Last Impressions Chest X-Ray 01/23/17 0000 Signed Impressions: Service Date/Time: Monday, January 23, 2017 11:42 - CONCLUSION: 1. No acute abnormality or significant interval change. González Mederos MD Lung Scan-V Nuclear Medicine 01/16/17 0000 Signed Impressions: Service Date/Time: Monday, January 16, 2017 15:38 - CONCLUSION: Low probability for pulmonary embolism. Edgardo Goldstein MD FACR Lower Extremity Ultrasound 01/16/17 0000 Signed Impressions: Service Date/Time: Monday, January 16, 2017 08:17 - CONCLUSION: Normal examination. Satinder Khanna Jr., MD Abdomen/Pelvis CT 01/15/17 0000 Signed Impressions: Service Date/Time: January 22:54 - CONCLUSION: 1. Patient is on peritoneal dialysis. There is small moderate ascites, increased from before. No loculated fluid. 2. Decreased gastric wall thickening, now mild. Nasogastric tube has been removed. 3. No obstruction or perceptible acute inflammatory changes seen of the gastrointestinal tract. Juan Mercado MD Objective Remarks GENERAL: This is a well-nourished, well-developed patient, in no apparent distress. SKIN: No rashes, warm and dry HEAD: Atraumatic. Normocephalic. EYES: Pupils equal round and reactive. Extraocular motions intact. No scleral icterus. ENT: Nose without bleeding, or drainage, Airway patent. NECK: Trachea midline. Supple CARDIOVASCULAR: Improving tachycardia without murmurs, gallops or rubs. RESPIRATORY: Clear to auscultation bilaterally. No wheezing, rales or rhonchi. GASTROINTESTINAL: Abdomen soft, non-tender, nondistended. Positive bowel sounds. MUSCULOSKELETAL: Extremities without clubbing, cyanosis, edema. Pedal pulses appreciated. NEUROLOGICAL: Awake and alert. Moves all extremity. Normal speech. Procedures EGD A/P Problem List: (1) ESRD (end stage renal disease) ICD Code: N18.6 Status: Acute (2) SBP (spontaneous bacterial peritonitis) ICD Code: K65.2 Status: Acute Assessment and Plan FUO-suspected PDP related peritonitis Presented with abdominal pain, vomiting and diarrhea. Found to have lactic acidosis. CT abdomen and pelvis noncontrast with normal gallbladder, liver, pancreas. Triglyceride level elevated but not contributory, 290. No prior h/o pancreatitis. There is thickening of stomach noted on CT abd/pelvis and EGD scheduled for today. Peritoneal fluid initially negative for SBP, but repeat sample indicative of SBP. Symptoms appear to be resolved. Still spiking fevers. Echo revealed evidence of vegetation on the mitral valve. Blood cultures with no growth at this time. Cardiology consult appreciated. ROBYN performed . Negative for endocarditis. - Protonix. - IP Fortaz and vancomycin for 1 more week. Discussed with ID, further fever workup which will include urine eosinophils, rheumatoid factor, MTB, SPEP, ESR, CK and lipase. Though he has intermittent low-grade fever, patient he does not look septic - repeat panculture negative to date. Hematemesis One episode 01/23/17. GI consult appreciated. - EGD showed esophagitis and gastritis. Continue PPI. Antireflux mechanisms discussed with the patient. Follow up pathology still pending - PPI. - Follow CBC and transfuse if hemoglobin is less than 7. Acute respiratory alkalosis/ COPD Alkalosis likely compensatory for metabolic acidosis. Pt was previously on prednisone, unclear if secondary to COPD. He smokes a pack every few days. Breathing is stable at this point. S/p prednisone. - smoking cessation instruction. - oxygen as needed. - encourage ambulation. Hypertension The pt has been hypotensive, now hypertensive. Stable. - resume clonidine at a lower dose and resume amlodipine. Increase clonidine as needed. Chronic anemia Likely s/t chronic disease. - follow CBC and transfuse as needed. Sinus tachycardia Multifactorial. TSH within normal limits. Start metoprolol which is a selective beta 1 blockers which is generous same in COPD -- telemetry. Diabetes mellitus Poorly controlled. - low dose dose insulin sliding scale. Improving hyperglycemia. Continue Levemir 7 units daily, 5 units HS. Secondary hyperparathyroidism S/t renal disease. - Calcitriol 0.25 mg po daily, calcium acetate 667 mg po tid. PPx: Heparin Discharge Planning Discharge when cleared by Dean Cooper MD Jan 27, 2017 12:18
[2017-01-27] MEDS ORDERED: METO25TA3 PO (12:20)
[2017-01-27 13:07] LABS: RHEUMATOID FACTOR TRIGGER LESS THAN 10.0 IU/ML (0.0-14.9)
[2017-01-27 13:09] LABS: TOTAL PROTEIN SPE 5.7 GM/DL (6.0-7.6)
--- NOTE | 2017-01-27 13:42 | CF ---
TRANSESOPHAGEAL ECHOCARDIOGRAM INDICATIONS FOR PROCEDURE: Possible mitral valve vegetation. Evaluation for endocarditis. Fevers. PROCEDURE: After the patient was sedated by anesthesia, the transesophageal probe was placed without difficulty. Tomographic images were obtained. Left ventricular function was preserved. Left ventricular ejection fraction of 60% with no wall motion abnormalities. Left atrial appendage was visualized and there was no evidence of left atrial thrombus. The mitral valve was structurally normal. There was no evidence of mitral stenosis, there was evidence of trace mitral regurgitation. There was no evidence of mitral valve vegetations. Aortic valve was normal. No evidence of aortic stenosis. There is evidence of mild aortic insufficiency. There was no evidence of aortic valve regurgitation. There was evidence of mild tricuspid regurgitation. Bubble study was preformed and there was no evidence of right to left shunt. DIAGNOSIS: 1. No evidence of mitral valve vegetation. 2. Preserved left ventricular systolic function. 3. Trace mitral regurgitation. 4. Mild tricuspid regurgitation. 5. Mild aortic insufficiency. 6. No evidence of patent foramen ovale. IMPRESSION: No evidence of mitral valve endocarditis. MD CARLA Lai/casie /4:39 PM /1:38 PM ANTONIA
--- NOTE | 2017-01-27 13:59 | HHI.GIFU ---
Subjective Remarks Resting in bed. Tolerating diet. No n/v. No abdominal pain. Objective Vitals I&O Vital Signs Date Time Temp Pulse Resp B/P Pulse Ox O2 Delivery O2 Flow Rate FiO2 01/27/17 12:00 99.9 107 20 135/80 99 01/27/17 08:00 100.5 126 20 139/86 100 01/27/17 04:00 99.8 107 18 132/76 94 01/27/17 00:00 99.3 105 18 135/84 95 01/26/17 20:00 Room Air 01/26/17 20:00 98.8 101 18 149/84 96 01/26/17 20:00 107 01/26/17 16:00 99.9 115 18 166/91 100 I/O 01/26/17 01/26/17 01/26/17 01/27/17 01/27/17 01/27/17 07:00 15:00 23:00 07:00 15:00 23:00 Intake Total 100 ml 480 ml 360 ml 280 ml Output Total 0 ml 1820 ml 200 ml 400 ml 1217 ml Balance 100 ml -1340 ml 160 ml -120 ml -1217 ml Intake Oral 100 ml 480 ml 360 ml 280 ml Output Urine Total 0 ml 300 ml 200 ml 400 ml Peritoneal Fluid 1520 ml 1217 ml # Bowel Movements 0 0 Laboratory Laboratory Tests Test 01/27/17 12:07 Erythrocyte Sedimentation Rate GREATER THAN 140 Total Protein 5.7 Lipase 364 Rheumatoid Factor Screen NEGATIVE Rheumatoid Factor Titer Date/Time Procedure Status Source Growth 01/23/17 12:25 Aerobic Blood Culture - Preliminary Resulted Blood Peripheral NO GROWTH IN 4 DAYS 01/23/17 12:25 Anaerobic Blood Culture - Preliminary Resulted Blood Peripheral NO GROWTH IN 4 DAYS Imaging Last Impressions Chest X-Ray 01/23/17 0000 Signed Impressions: Service Date/Time: Monday, January 23, 2017 11:42 - CONCLUSION: 1. No acute abnormality or significant interval change. González Mederos MD Lung Scan-V Nuclear Medicine 01/16/17 0000 Signed Impressions: Service Date/Time: Monday, January 16, 2017 15:38 - CONCLUSION: Low probability for pulmonary embolism. Edgardo Goldstein MD FACR Lower Extremity Ultrasound 01/16/17 0000 Signed Impressions: Service Date/Time: Monday, January 16, 2017 08:17 - CONCLUSION: Normal examination. Satinder Khanna Jr., MD Abdomen/Pelvis CT 01/15/17 0000 Signed Impressions: Service Date/Time: January 22:54 - CONCLUSION: 1. Patient is on peritoneal dialysis. There is small moderate ascites, increased from before. No loculated fluid. 2. Decreased gastric wall thickening, now mild. Nasogastric tube has been removed. 3. No obstruction or perceptible acute inflammatory changes seen of the gastrointestinal tract. Juan Mercado MD Physical Exam HEENT: Normocephalic, no jaundice. CHEST: CTA CARDIAC: RRR ABDOMEN: Soft, mildly distended, nontender; no hepatosplenomegaly; bowel sounds are present in all four quadrants. PD cath dressing clean. EXTREMITIES: No clubbing, cyanosis, or edema. SKIN: Normal; no rash; no jaundice. DIRECTOR OF HUMAN RESOURCES: No focal deficits; alert and oriented times three. Assessment and Plan Plan ASSESSMENT - GIB with hematemesis. Abdomen/Pelvis CT (01/15/17)----> 1. Patient is on peritoneal dialysis. There is small moderate ascites, increased from before. No loculated fluid. 2. Decreased gastric wall thickening, now mild. Nasogastric tube has been removed. 3. No obstruction or perceptible acute inflammatory changes seen of the gastrointestinal tract. S/P EGD (01/25)-----> Esophagitis probably secondary to nausea and vomiting Gastritis. Pathology pending. PPI. HH 7.5/23.1. Tolerating diet. No further bleeding. - Anemia secondary to acute blood loss. HH 7.5/23.1. - Elevated lipase. Likely related to elevated creatinine, n/v. Improved. - Leukocytosis, resolved. On abx for possible SBP. ID following. PLAN - DIMAS - Await pathology - Cont. PPI - Monitor HH - Transfuse prn - Notify GI of active bleeding - Supportive care - FU GUSTAVO 2 weeks - GI will sign off, please reconsult as needed - Pt seen and examined by dr. Palacios and myself and this note is written on his behalf Lucille Mojica Jan 27, 2017 13:58
--- NOTE | 2017-01-27 15:07 | HHI.NPPN ---
Subjective History of Present Illness 61-year-old black male with history of end-stage renal disease, hypertension, new onset of diabetes he was admitted last time with severe hyperglycemia, he was discharge home and he said he did not know how to take insulin and has not taken insulin him back with some abdominal pain, hyperglycemia and received peritoneal dialysis culture has been pending total WBC count was 120 with only 8 % neutrophils. Additional Remarks low grade fever. PD carried out. Review of Systems General Constitutional: Fatigue Cardiovascular Cardiac: AGUILAR Objective Data Data 01/26/17 01/27/17 19:00 07:00 Intake Total 480 ml 640 ml Output Total 1820 ml 600 ml Balance -1340 ml 40 ml Intake Oral 480 ml 640 ml Output Urine Total 300 ml 600 ml Peritoneal Fluid 1520 ml # Bowel Movements 0 Vital Signs Date Time Temp Pulse Resp B/P Pulse Ox O2 Delivery O2 Flow Rate FiO2 01/27/17 12:00 99.9 107 20 135/80 99 01/27/17 08:00 100.5 126 20 139/86 100 01/27/17 08:00 74 01/27/17 08:00 96 Room Air 21 01/27/17 04:00 99.8 107 18 132/76 94 01/27/17 00:00 99.3 105 18 135/84 95 01/26/17 20:00 Room Air 01/26/17 20:00 98.8 101 18 149/84 96 01/26/17 20:00 107 01/26/17 16:00 99.9 115 18 166/91 100 -: 01/26/17 0707 01/26/17 0707 Physical Exam General Appearance: Well Nourished, No Acute Distress, Comfortable Eyes Eye Exam: Pupils Equal Throat Throat Exam: Oral Mucosa [place] & Moist Neck Neck Exam: Neck Supple Pulmonary Resp Exam: Breath Sounds Equal, No Distress, Decreased Bases Cardiology CV Exam: Tachycardia Gastrointestinal/Abdomen GI Exam: Soft, Non-Tender, Bowel Sounds Present, Distended (with PD catheter in place.) Extremeties Extremities Exam: Trace Edema Neurologic Neuro Exam: Alert, Awake, Oriented Psychiatric Psych Exam: Appropriate Responses Assessment/Plan Problem List: (1) ESRD (end stage renal disease) Plan: Patient is on peritoneal dialysis, Using 2.5 % dextrose and 1.5%, 1800 ml fill volume, with last fill of 1500 ml of 1.5%, dwell time 6 hours. Last fill contains Fortaz. Cultures have been negative. he is receiving IP Fortaz. low grade fever d/w ID can be followed as out patient no obvious source of infection FU with Dr. Lazaro (2) Lactic acidosis Plan: due to infection/sepsis. (3) HTN (hypertension) Plan: Continue to monitor (4) Diabetic hyperosmolar non-ketotic state Plan: Blood sugar is acceptable. Problem Qualifiers (1) HTN (hypertension): Qualified Code: I10 - Essential hypertension Ned Sosa MD Jan 27, 2017 15:07
--- NOTE | 2017-01-27 15:41 | HHI.IDPN ---
Subjective Subjective Remarks pt cont to have fever, but feels good Antibiotics vanco IP cefepime IP Allergies: Coded Allergies: Aspirin (Unverified Allergy, Unknown, 01/15/17) HEP C Objective . Vital Signs Date Time Temp Pulse Resp B/P Pulse Ox O2 Delivery O2 Flow Rate FiO2 01/27/17 12:00 99.9 107 20 135/80 99 01/27/17 08:00 100.5 126 20 139/86 100 01/27/17 08:00 74 01/27/17 08:00 96 Room Air 21 01/27/17 04:00 99.8 107 18 132/76 94 01/27/17 00:00 99.3 105 18 135/84 95 01/26/17 20:00 Room Air 01/26/17 20:00 98.8 101 18 149/84 96 01/26/17 20:00 107 01/26/17 16:00 99.9 115 18 166/91 100 01/26/17 01/26/17 01/27/17 15:00 23:00 07:00 Intake Total 480 ml 360 ml 280 ml Output Total 1820 ml 200 ml 400 ml Balance -1340 ml 160 ml -120 ml Intake Oral 480 ml 360 ml 280 ml Output Urine Total 300 ml 200 ml 400 ml Peritoneal Fluid 1520 ml # Bowel Movements 0 . Laboratory Tests Test 01/26/17 01/27/17 07:07 12:07 White Blood Count 8.9 TH/MM3 Red Blood Count 2.48 MIL/MM3 Hemoglobin 7.5 GM/DL Hematocrit 23.1 % Mean Corpuscular Volume 93.2 FL Mean Corpuscular Hemoglobin 30.1 PG Mean Corpuscular Hemoglobin 32.3 % Concent Red Cell Distribution Width 16.7 % Platelet Count 249 TH/MM3 Mean Platelet Volume 8.1 FL Erythrocyte Sedimentation Rate GREATER THAN 140 mm/hr Laboratory Tests Test 01/26/17 01/27/17 07:07 12:07 Sodium Level 142 MEQ/L Potassium Level 3.6 MEQ/L Chloride Level 110 MEQ/L Carbon Dioxide Level 23.2 MEQ/L Anion Gap 9 MEQ/L Blood Urea Nitrogen 23 MG/DL Creatinine 6.11 MG/DL Estimat Glomerular Filtration 11 ML/MIN Rate Random Glucose 98 MG/DL Calcium Level 7.6 MG/DL Total Bilirubin 0.4 MG/DL Aspartate Amino Transf 29 U/L (AST/SGOT) Alanine Aminotransferase 22 U/L (ALT/SGPT) Alkaline Phosphatase 238 U/L Total Protein 5.1 GM/DL 5.7 GM/DL Albumin 1.6 GM/DL Thyroid Stimulating Hormone 3.720 uIU/ML 3rd Gen Lipase 364 U/L Imaging Last Impressions Chest X-Ray 01/23/17 0000 Signed Impressions: Service Date/Time: Monday, January 23, 2017 11:42 - CONCLUSION: 1. No acute abnormality or significant interval change. González Mederos MD Lung Scan-VQ Nuclear Medicine 01/16/17 0000 Signed Impressions: Service Date/Time: Monday, January 16, 2017 15:38 - CONCLUSION: Low probability for pulmonary embolism. Edgardo Goldstein MD FACR Lower Extremity Ultrasound 01/16/17 0000 Signed Impressions: Service Date/Time: Monday, January 16, 2017 08:17 - CONCLUSION: Normal examination. Satinder Khanna Jr., MD Abdomen/Pelvis CT 01/15/17 0000 Signed Impressions: Service Date/Time: January 22:54 - CONCLUSION: 1. Patient is on peritoneal dialysis. There is small moderate ascites, increased from before. No loculated fluid. 2. Decreased gastric wall thickening, now mild. Nasogastric tube has been removed. 3. No obstruction or perceptible acute inflammatory changes seen of the gastrointestinal tract. Juan Mercado MD Physical Exam CONSTITUTIONAL/GENERAL: This is an adequately nourished patient, in no apparent distress. TUBES/LINES/DRAINS: SKIN: No jaundice, rashes, or lesions. . EYES: No scleral icterus. CARDIOVASCULAR: Regular rate and rhythm without murmurs, gallops, or rubs. No JVD. Peripheral pulses symmetric. RESPIRATORY/CHEST: Symmetric, unlabored respirations. Clear to auscultation. Breath sounds equal bilaterally. No wheezes, rales, or rhonchi. GASTROINTESTINAL: Abdomen soft, non-tender, mildly distended. No hepato- splenomegaly, or palpable masses. No guarding. Bowel sounds present. Tenk[place] in place -site [place] MUSCULOSKELETAL: Extremities without clubbing, cyanosis, or edema. NEUROLOGICAL: Awake and alert. Non focal PSYCHIATRIC: No obvious anxiety/depression. no apparent hallucinations or other psychotic thought process. Assessment & Plan Remarks FUO - - ROBYN negative - HIV neg - CMV, crypto - neg - all clx negative up to date - Procalcitonine high, but pt is in ESRD - diff to interprete - small leukocyutosis as well - RICO neg Leukocytosis, mild - resolved lactic acidosis -- resolved suspected PD related peritonitis, clx negative - neg routine clx @ 48 hrs Poorly controlled DM Immunosuppressed: high dose d sterroids (pt is unaware for what disease and for how long he is taking it "I just take what the doctor tells me"): still unclear the indication for prednisone - Prednisone stopped HCV Elevated lipase, but no abd pain to suggest pancreatitis and no CT changes New issue - hematoemesis, resolved ? post procedure - sp EGD, path P; esophagitits seen, can not explain pt's FUO REC's: cont cefepime, vanco IP x 1 more week to complete 14 days (thru 03/06) - dc home with fu with ID (Dr Salamanca) - fu P lab work (CKP, RF, SPEP) dw Sheila Villaseñor Alexandra A. MD Jan 27, 2017 15:41
--- NOTE | 2017-01-27 16:48 | HHI.DS ---
Discharge Summary Admission Date Jan 15, 2017 at 22:35 Discharge Date: Jan 29, 2017 Admitting Diagnosis DKA, lactic acidosis, peritonitis, ESRD (1) ESRD (end stage renal disease) ICD Code: N18.6 Diagnosis: Principal Procedures EGD Brief History - From Admission 61 yo AAM with PMH of end-stage renal disease started on peritoneal dialysis 3 months ago, hypertension, hepatitis C, recent diagnosis of diabetes about 2 weeks ago who presents to [facility] emergency department via [facility] after family member urged him to seek medical attention. He states "I don't really understand how to manage my diabetes". He states blood glucose has been running "high" since he was discharged from the hospital despite taking accucheck tid with sliding scale via insulin pen (though he reported to ED staff he had stopped taking insulin 2 days ago). He states for the last 2 days he has had cramping abdominal pain, vomiting (nonbloody, nonbilious) every time he tries to eat, 4-5 loose stools daily, myalgias, sore throat. He denies melena , has noticed some blood streaks on toilet paper. Temp is 99.3. He denies CP , SOB, hemoptysis, cough. He continues to make urine multiple times daily, no dysuria. Reports compliance with intermittent PD performed nightly and states peritoneal fluid has appeared clear. No discharge at catheter site. ED workup included lipase of 2005, glucose 760, anion gap 17, lactic acid 4.1, beta hydroxybutyrate 0.51, ammonia 59. CT abdomen and pelvis performed without contrast demonstrates no loculated fluid. Liver and pancreas appeared normal. Previously seen gastric wall thickening is improved. Patient states abdominal pain is much better than when he came in; hasn't received any analgesia CBC/BMP: 01/26/17 0707 01/26/17 0707 Significant Findings Laboratory Tests Test 01/25/17 01/25/17 01/26/17 01/27/17 07:51 07:57 07:07 12:07 Red Blood Count 2.35 MIL/MM3 2.48 MIL/MM3 (4.50-5.90) (4.50-5.90) Hemoglobin 7.1 GM/DL 7.5 GM/DL (13.0-17.0) (13.0-17.0) Hematocrit 22.0 % 23.1 % (39.0-51.0) (39.0-51.0) Chloride Level 109 MEQ/L 110 MEQ/L (98-107) (98-107) Blood Urea Nitrogen 27 MG/DL (7-18) 23 MG/DL (7-18) Creatinine 6.01 MG/DL 6.11 MG/DL (0.60-1.30) (0.60-1.30) Estimat Glomerular Filtration 12 ML/MIN (>89) 11 ML/MIN (>89) Rate Random Glucose 107 MG/DL (74-106) Calcium Level 7.2 MG/DL 7.6 MG/DL (8.5-10.1) (8.5-10.1) Protein Corrected Calcium 8.2 MG/DL (8.5-10.1) Total Protein 5.2 GM/DL 5.1 GM/DL 5.7 GM/DL (6.4-8.2) (6.4-8.2) (6.0-7.6) Alkaline Phosphatase 238 U/L (45-117) Albumin 1.6 GM/DL (3.4-5.0) Erythrocyte Sedimentation Rate GREATER THAN 140 mm/hr (0-20) Imaging Last Impressions Chest X-Ray 01/23/17 0000 Signed Impressions: Service Date/Time: Monday, January 23, 2017 11:42 - CONCLUSION: 1. No acute abnormality or significant interval change. González Mederos MD Lung Scan-VQ Nuclear Medicine 01/16/17 0000 Signed Impressions: Service Date/Time: Monday, January 16, 2017 15:38 - CONCLUSION: Low probability for pulmonary embolism. Edgardo Goldstein MD FACR Lower Extremity Ultrasound 01/16/17 0000 Signed Impressions: Service Date/Time: Monday, January 16, 2017 08:17 - CONCLUSION: Normal examination. Satinder Khanna Jr., MD Abdomen/Pelvis CT 01/15/17 0000 Signed Impressions: Service Date/Time: January 22:54 - CONCLUSION: 1. Patient is on peritoneal dialysis. There is small moderate ascites, increased from before. No loculated fluid. 2. Decreased gastric wall thickening, now mild. Nasogastric tube has been removed. 3. No obstruction or perceptible acute inflammatory changes seen of the gastrointestinal tract. Juan Mercado MD PE at Discharge GENERAL: This is a well-nourished, well-developed patient, in no apparent distress. SKIN: No rashes, warm and dry HEAD: Atraumatic. Normocephalic. EYES: Pupils equal round and reactive. Extraocular motions intact. No scleral icterus. ENT: Nose without bleeding, or drainage, Airway patent. NECK: Trachea midline. Supple CARDIOVASCULAR: Improving tachycardia without murmurs, gallops or rubs. RESPIRATORY: Clear to auscultation bilaterally. No wheezing, rales or rhonchi. GASTROINTESTINAL: Abdomen soft, non-tender, nondistended. Positive bowel sounds. MUSCULOSKELETAL: Extremities without clubbing, cyanosis, edema. Pedal pulses appreciated. NEUROLOGICAL: Awake and alert. Moves all extremity. Normal speech. Hospital Course FUO-suspected PD related peritonitis Presented with abdominal pain, vomiting and diarrhea. Found to have lactic acidosis. CT abdomen and pelvis noncontrast with normal gallbladder, liver, pancreas. Triglyceride level elevated but not contributory, 290. No prior h/o pancreatitis. There is thickening of stomach noted on CT abd/pelvis and EGD scheduled for today. Peritoneal fluid initially negative for SBP, but repeat sample indicative of SBP. Symptoms resolved. Still spiking fevers. Echo revealed evidence of vegetation on the mitral valve. Blood cultures with no growth at this time. Cardiology consult appreciated. ROBYN performed 01/21/17. Negative for endocarditis. - Protonix. - IP Fortaz and vancomycin for 1 more week. Discussed with ID, further fever workup so far urine eosinophils(neg), rheumatoid factor(neg), SPEP (no monoclonal protein), ESR(140), CK(low) and lipase(WNL). Though he has intermittent fever, patient he does not look septic and doesn't even feel feverish. Follow-up pending MTB, repeat blood culture and the limbs can - repeat panculture negative to date. Hematemesis One episode 01/23/17. GI consult appreciated. - EGD showed esophagitis and gastritis. Continue PPI. Antireflux mechanisms discussed with the patient. Follow up pathology no fungal organisms. Negative for H. pylori. He has reactive gastropathy and esophagitis - PPI. - Follow CBC and transfuse if hemoglobin is less than 7. Acute respiratory alkalosis/ COPD Alkalosis likely compensatory for metabolic acidosis. Pt was previously on prednisone, unclear if secondary to COPD. He smokes a pack every few days. Breathing is stable at this point. S/p prednisone. - smoking cessation instruction. - oxygen as needed. - encourage ambulation. Hypertension The pt has been hypotensive, now hypertensive. Stable. - resume clonidine at a lower dose and amlodipine. Increase clonidine as needed. Chronic anemia Likely s/t chronic disease. - follow CBC and transfuse as needed. Sinus tachycardia Multifactorial. TSH within normal limits. Improving continue metoprolol which is a selective beta 1 blockers which is generally safe in COPD -- telemetry. Diabetes mellitus Poorly controlled. - low dose dose insulin sliding scale. Improving hyperglycemia. Continue Levemir 7 units daily, 5 units HS. Secondary hyperparathyroidism S/t renal disease. - Calcitriol 0.25 mg po daily, calcium acetate 667 mg po tid. PPx: Heparin Pt Condition on Discharge: Stable Discharge Disposition: Discharge Home Discharge Time: > 30 minutes Discharge Instructions DIET: Follow Instructions for: Diabetic Diet, Renal Failure Diet Activities you can perform: Regular-No Restrictions Activities to Avoid: Driving Follow up Referrals: Gastroenterology - 2 Weeks @ [facility] Infect[facility] Disease with Nba Lazaro MD Nephrology - 1 Week PCP Follow-up - 1 Week New Medications: Ceftazidime Inj (Tazicef Inj) 1 Gm Inj 1000 MG IP DAILY@18 Dosing per nephrology Infection #7 INJECTION Clonidine (Catapres) 0.1 Mg Tab 0.1 MG PO TID Blood Pressure Management #90 TAB Insulin Detemir Inj (Levemir Inj) 1,000 unit/ 10 ML Vial 5 UNITS SQ HS Blood Sugar Management #30 INJECTION Insulin Detemir Inj (Levemir Inj) 1,000 unit/ 10 ML Vial 7 UNITS SQ DAILY Blood Sugar Management #30 INJECTION Metoprolol Tartrate (Metoprolol Tartrate) 25 Mg Tab 12.5 MG PO Q12HR Regulate Heart Beat #60 TAB Pantoprazole (Pantoprazole) 40 Mg Tab 40 MG PO DAILY Manage Heartburn #30 TAB Sennosides-Docusate Sodium (Senna Plus 8.6-50 mg) 1 Tab Tab 1 TAB PO BID Prevent Constipation #60 TAB Thiamine HCl (Gnp Vitamin B-1) 100 Mg Tab 100 MG PO DAILY Alcohol Detox #30 TAB Vancomycin Inj (Vancomycin Inj) 1,000 Mg Inj 2000 MG IP Q7D Dosing per nephrology Infection #1 INJECTION Continued Medications: Amlodipine (Norvasc) 5 Mg Tab 5 MG PO BID #60 Ref 0 TAB Calcitriol (Calcitriol) 0.25 Mcg Cap 0.25 MCG PO DAILY Calcium Supplement #30 Ref 0 CAP Calcium Acetate (Phosphate Bin (Calcium Acetate) 667 Mg Cap 667 MG PO TID #90 Ref 0 CAP Insulin Aspart Inj (Novolog Flexpen Inj) 300 Unit/3 Ml Pen 1 UNITS SQ ACHS SLIDING SCALE blood sugar <150 do not give insulin. blood sugar 150-180 give 2 units of insulin before meals. blood sugar 181-200 give 3 units of insulin before meals. blood sugar 201 and above give 4 units of insulin before meals. Blood Sugar Management #1 Ref 0 PEN Additional Information I spent 35 minutes [id number] with the patient or on the lee discussing the patient's disposition, prognosis, and plan of care with patient's caregivers. Over half the time spent was devoted to counseling the patient regarding placement in coordinating care with caregivers and case management. Dean Nuñez MD Jan 27, 2017 16:48
[2017-01-27 18:32] LABS: PERITONEAL LYMPHS 41 %; PERITONEAL MONOS 54 %; PERITONEAL POLYS(SEGS) 3 %; PERITONEAL WBC 7 /MM3 (0-10)
[2017-01-27 22:09] LABS: ALBUMIN SPE 2.42 GM/DL (3.50-5.00); ALPHA 1 GLOBULIN 0.38 GM/DL (0.11-0.29); ALPHA 2 GLOBULIN 1.24 GM/DL (0.22-1.00)
[2017-01-27 22:10] LABS: BETA GLOBULINS (SPE) 0.85 GM/DL (0.53-1.03)
[2017-01-28] VITALS (8 sets, daily range): BP systolic 106–128; BP diastolic 64–84; PULSE 95–108; RESP 16–18; TEMP 97.8–102; O2SAT 96–100
[2017-01-28] MEDS: CHLORHEXIDINE GLUCONATE 2 % 1 PACK (2 CLOTHS) TOP SCH (04:00)
[2017-01-28] MEDS: ACETAMINOPHEN 325 MG TAB PO PRN (04:01)
[2017-01-28] MEDS: INSULIN ASPART SUPPLEMENTAL SCALE SQ SCH ×4 (06:37→20:58)
[2017-01-28] MEDS: cloNIDine HCL 0.1 MG TAB PO SCH ×3 (09:17→17:09)
[2017-01-28] MEDS: CALCIUM ACETATE 667 MG CAP PO SCH ×3 (09:17→17:09)
[2017-01-28] MEDS: PANTOPRAZOLE SOD 40 MG DELAYED RELEASE TAB PO SCH (09:17)
[2017-01-28] MEDS: DOCUSATE SODIUM 50 MG/SENNA 8.6 MG TAB PO SCH ×2 (09:17→20:49)
[2017-01-28] MEDS: amLODIPine BESYLATE 5 MG TAB PO SCH ×2 (09:17→20:49)
[2017-01-28] MEDS: THIAMINE HCL 100 MG TAB PO SCH (09:17)
[2017-01-28] MEDS: CALCITRIOL 0.25 MCG CAP PO SCH (09:17)
[2017-01-28] MEDS: METOPROLOL TARTRATE 25 MG TAB PO SCH ×2 (09:17→20:49)
[2017-01-28] MEDS: SODIUM CHLORIDE 0.9% FLUSH 10 ML FLUSH SCH ×2 (09:18→20:50)
[2017-01-28] MEDS: HEPARIN SODIUM - SQ 10,000 UNITS/ML VIAL SQ SCH ×2 (09:18→20:50)
--- NOTE | 2017-01-28 09:19 | HHI.PR ---
Subjective Remarks Follow-up FUO. MAXIMUM TEMPERATURE 101 but at that time patient was covered with blankets. He denies feeling feverish. No chills. Discussed with RN and case management Objective Vitals Vital Signs Date Time Temp Pulse Resp B/P Pulse Ox O2 Delivery O2 Flow Rate FiO2 01/28/17 08:00 97.8 99 18 128/84 99 01/28/17 06:04 98.6 01/28/17 03:45 101.7 108 16 106/64 96 01/27/17 23:45 99.6 95 18 126/88 100 01/27/17 20:00 Room Air 01/27/17 20:00 104 01/27/17 19:30 99.5 108 18 127/81 95 01/27/17 16:00 100.9 111 18 117/74 99 01/27/17 12:00 99.9 107 20 135/80 99 I/O 01/27/17 01/27/17 01/27/17 01/28/17 01/28/17 01/28/17 07:00 15:00 23:00 07:00 15:00 23:00 Intake Total 280 ml 720 ml Output Total 400 ml 1417 ml 850 ml 749 ml Balance -120 ml -697 ml -850 ml -749 ml Intake Oral 280 ml 720 ml Output Urine Total 400 ml 200 ml 850 ml Peritoneal Fluid 1217 ml 749 ml # Bowel Movements 1 Result Diagram: 01/26/1770601/26/1707 Objective Remarks GENERAL: This is a well-nourished, well-developed patient, in no apparent distress. SKIN: No rashes, warm and dry HEAD: Atraumatic. Normocephalic. EYES: Pupils equal round and reactive. Extraocular motions intact. No scleral icterus. ENT: Nose without bleeding, or drainage, Airway patent. NECK: Trachea midline. Supple CARDIOVASCULAR: Improving tachycardia without murmurs, gallops or rubs. RESPIRATORY: Clear to auscultation bilaterally. No wheezing, rales or rhonchi. GASTROINTESTINAL: Abdomen soft, non-tender, nondistended. Positive bowel sounds. MUSCULOSKELETAL: Extremities without clubbing, cyanosis, edema. Pedal pulses appreciated. NEUROLOGICAL: Awake and alert. Moves all extremity. Normal speech. Procedures EGD A/P Problem List: (1) ESRD (end stage renal disease) ICD Code: N18.6 Status: Acute Assessment and Plan FUO-suspected PDP related peritonitis Presented with abdominal pain, vomiting and diarrhea. Found to have lactic acidosis. CT abdomen and pelvis noncontrast with normal gallbladder, liver, pancreas. Triglyceride level elevated but not contributory, 290. No prior h/o pancreatitis. There is thickening of stomach noted on CT abd/pelvis and EGD scheduled for today. Peritoneal fluid initially negative for SBP, but repeat sample indicative of SBP. Symptoms appear to be resolved. Still spiking fevers. Echo revealed evidence of vegetation on the mitral valve. Blood cultures with no growth at this time. Cardiology consult appreciated. ROBYN performed . Negative for endocarditis. - Protonix. - IP Fortaz and vancomycin for 1 more week. Discussed with ID, further fever workup which will include urine eosinophils(neg), rheumatoid factor(neg), MTB, SPEP, ESR(140), CK(low) and lipase(WNL). Though he has intermittent fever, patient he does not look septic and doesn't even feel feverish - repeat panculture negative to date. Hematemesis One episode 01/23/17. GI consult appreciated. - EGD showed esophagitis and gastritis. Continue PPI. Antireflux mechanisms discussed with the patient. Follow up pathology no fungal organisms. Negative for H. pylori - PPI. - Follow CBC and transfuse if hemoglobin is less than 7. Acute respiratory alkalosis/ COPD Alkalosis likely compensatory for metabolic acidosis. Pt was previously on prednisone, unclear if secondary to COPD. He smokes a pack every few days. Breathing is stable at this point. S/p prednisone. - smoking cessation instruction. - oxygen as needed. - encourage ambulation. Hypertension The pt has been hypotensive, now hypertensive. Stable. - resume clonidine at a lower dose and amlodipine. Increase clonidine as needed. Chronic anemia Likely s/t chronic disease. - follow CBC and transfuse as needed. Sinus tachycardia Multifactorial. TSH within normal limits. Improving continue metoprolol which is a selective beta 1 blockers which is generally safe in COPD -- telemetry. Diabetes mellitus Poorly controlled. - low dose dose insulin sliding scale. Improving hyperglycemia. Continue Levemir 7 units daily, 5 units HS. Secondary hyperparathyroidism S/t renal disease. - Calcitriol 0.25 mg po daily, calcium acetate 667 mg po tid. PPx: Heparin Discharge Planning Discharge yesterday was placed on hold until arrangements made for SNF SadafoDean MD Jan 28, 2017 09:19
[2017-01-28] MEDS: INSULIN DETEMIR 100 UNITS/ML VIAL SQ SCH ×2 (09:22→20:57)
--- NOTE | 2017-01-28 13:18 | HHI.NPPN ---
Subjective History of Present Illness 61-year-old black male with history of end-stage renal disease, hypertension, new onset of diabetes he was admitted last time with severe hyperglycemia, he was discharge home and he said he did not know how to take insulin and has not taken insulin him back with some abdominal pain, hyperglycemia and received peritoneal dialysis culture has been pending total WBC count was 120 with only 8 % neutrophils. Additional Remarks fever. PD carried out. Review of Systems General Constitutional: Fatigue Cardiovascular Cardiac: AGUILAR Objective Data Data 01/27/17 01/28/17 19:00 07:00 Intake Total 720 ml Output Total 1417 ml 850 ml Balance -697 ml -850 ml Intake Oral 720 ml Output Urine Total 200 ml 850 ml Peritoneal Fluid 1217 ml # Bowel Movements 1 Vital Signs Date Time Temp Pulse Resp B/P Pulse Ox O2 Delivery O2 Flow Rate FiO2 01/28/17 12:00 98.4 95 18 117/74 100 01/28/17 09:10 Room Air 01/28/17 08:41 100 01/28/17 08:00 97.8 99 18 128/84 99 01/28/17 06:04 98.6 01/28/17 03:45 101.7 108 16 106/64 96 01/27/17 23:45 99.6 95 18 126/88 100 01/27/17 20:00 Room Air 01/27/17 20:00 104 01/27/17 19:30 99.5 108 18 127/81 95 01/27/17 16:00 100.9 111 18 117/74 99 -: 01/26/17 0707 01/26/17 0707 Microbiology 01/27/17 Gram Stain - Final, Resulted 01/27/17 Body Fluid Culture, Resulted Pending Physical Exam General Appearance: Well Nourished, No Acute Distress, Comfortable Eyes Eye Exam: Pupils Equal Throat Throat Exam: Oral Mucosa [place] & Moist Neck Neck Exam: Neck Supple Pulmonary Resp Exam: Breath Sounds Equal, No Distress, Decreased Bases Cardiology CV Exam: Tachycardia Gastrointestinal/Abdomen GI Exam: Soft, Non-Tender, Bowel Sounds Present, Distended (with PD catheter in place.) Extremeties Extremities Exam: Trace Edema Neurologic Neuro Exam: Alert, Awake, Oriented Psychiatric Psych Exam: Appropriate Responses Assessment/Plan Problem List: (1) ESRD (end stage renal disease) Plan: Patient is on peritoneal dialysis, Using 2.5 % dextrose and 1.5%, 1800 ml fill volume, with last fill of 1500 ml of 1.5%, dwell time 6 hours. Last fill contains Fortaz. Cultures have been negative. UF 749 CC he is receiving IP Fortaz. repeat culture no evidence of peritonitis fever likely Viral ? Hepatitic C proliferation?? ID can be followed as out patient no obvious source of infection FU with Dr. Lazaro (2) Lactic acidosis Plan: due to infection/sepsis. (3) HTN (hypertension) Plan: Continue to monitor (4) Diabetic hyperosmolar non-ketotic state Plan: Blood sugar is acceptable. Problem Qualifiers (1) HTN (hypertension): Qualified Code: I10 - Essential hypertension Ned Sosa MD Jan 28, 2017 13:18
--- NOTE | 2017-01-28 19:40 | HHI.IDPN ---
Subjective Subjective Remarks + fever up to 102 co chills ESR > 140 No other co Antibiotics vanco IP cefepime IP Allergies: Coded Allergies: Aspirin (Unverified Allergy, Unknown, 01/15/17) HEP C Objective . Vital Signs Date Time Temp Pulse Resp B/P Pulse Ox O2 Delivery O2 Flow Rate FiO2 01/28/17 18:01 100.6 01/28/17 16:00 102.0 108 16 112/73 100 01/28/17 12:00 98.4 95 18 117/74 100 01/28/17 09:10 Room Air 01/28/17 08:41 100 01/28/17 08:00 97.8 99 18 128/84 99 01/28/17 06:04 98.6 01/28/17 03:45 101.7 108 16 106/64 96 01/27/17 23:45 99.6 95 18 126/88 100 01/27/17 20:00 Room Air 01/27/17 20:00 104 01/27/17 19:30 99.5 108 18 127/81 95 01/27/17 01/27/17 01/28/17 15:00 23:00 07:00 Intake Total 720 ml Output Total 1417 ml 850 ml Balance -697 ml -850 ml Intake Oral 720 ml Output Urine Total 200 ml 850 ml Peritoneal Fluid 1217 ml # Bowel Movements 1 . Laboratory Tests Test 01/27/17 12:07 Erythrocyte Sedimentation Rate GREATER THAN 140 mm/hr Laboratory Tests Test 01/27/17 01/28/17 12:07 05:25 Total Protein 5.7 GM/DL Albumin 2.42 GM/DL Albumin/Globulin Ratio 0.74 Erkpv-7-Eojsfuubg 0.38 GM/DL Lhshr-3-Cmddyrhtx 1.24 GM/DL Beta Globulins 0.85 GM/DL Gamma Globulins 0.81 GM/DL Electrophoresis Pathologist Comment Lipase 364 U/L Total Creatine Kinase 29 U/L Microbiology Date/Time Procedure Status Source Growth 01/27/17 17:00 Gram Stain - Final Resulted Fluid Peritoneal Fluid 01/27/17 17:00 Body Fluid Culture - Preliminary Resulted Fluid Peritoneal Fluid NO GROWTH IN 24 HOURS. 01/28/17 17:57 Aerobic Blood Culture Received Blood Peripheral Pending 01/28/17 17:57 Anaerobic Blood Culture Received Blood Peripheral Pending 01/28/17 18:03 Aerobic Blood Culture Received Blood Peripheral Pending 01/28/17 18:03 Anaerobic Blood Culture Received Blood Peripheral Pending Imaging Last Impressions Chest X-Ray 01/23/17 0000 Signed Impressions: Service Date/Time: Monday, January 23, 2017 11:42 - CONCLUSION: 1. No acute abnormality or significant interval change. González Mederos MD Lung Scan-VQ Nuclear Medicine 01/16/17 0000 Signed Impressions: Service Date/Time: Monday, January 16, 2017 15:38 - CONCLUSION: Low probability for pulmonary embolism. Edgardo Goldstein MD FACR Lower Extremity Ultrasound 01/16/17 0000 Signed Impressions: Service Date/Time: Monday, January 16, 2017 08:17 - CONCLUSION: Normal examination. Satinder Khanna Jr., MD Abdomen/Pelvis CT 01/15/17 0000 Signed Impressions: Service Date/Time: January 22:54 - CONCLUSION: 1. Patient is on peritoneal dialysis. There is small moderate ascites, increased from before. No loculated fluid. 2. Decreased gastric wall thickening, now mild. Nasogastric tube has been removed. 3. No obstruction or perceptible acute inflammatory changes seen of the gastrointestinal tract. Juan Mercado MD Physical Exam CONSTITUTIONAL/GENERAL: This is an adequately nourished patient, in no apparent distress. TUBES/LINES/DRAINS: SKIN: No jaundice, rashes, or lesions. . EYES: No scleral icterus. CARDIOVASCULAR: Regular rate and rhythm without murmurs, gallops, or rubs. No JVD. Peripheral pulses symmetric. RESPIRATORY/CHEST: Symmetric, unlabored respirations. Clear to auscultation. Breath sounds equal bilaterally. No wheezes, rales, or rhonchi. GASTROINTESTINAL: Abdomen soft, non-tender, mildly distended. No hepato- splenomegaly, or palpable masses. No guarding. Bowel sounds present. Tenkoff in place -site [place] MUSCULOSKELETAL: Extremities without clubbing, cyanosis, or edema. NEUROLOGICAL: Awake and alert. Non focal PSYCHIATRIC: No obvious anxiety/depression. no apparent hallucinations or other psychotic thought process. Assessment & Plan Remarks FUO - Worsening, now spikes to 102.6 - ROBYN negative - HIV neg - CMV, crypto - neg - all clx negative up to date - Procalcitonine high, but pt is in ESRD - diff to interprete - small leukocyutosis as well - RICO CPK RF neg; SPEP cw renal protein loss Leukocytosis, mild - resolved lactic acidosis -- resolved suspected PD related peritonitis, clx negative - neg routine clx @ 48 hrs Poorly controlled DM Immunosuppressed: high dose d sterroids (pt is unaware for what disease and for how long he is taking it "I just take what the doctor tells me"): still unclear the indication for prednisone - Prednisone stopped HCV Elevated lipase, but no abd pain to suggest pancreatitis and no CT changes New issue - hematoemesis, resolved ? post procedure - sp EGD, path P; esophagitits seen, can not explain pt's FUO REC's: * WBC study cont cefepime, vanco IP x 1 more week to complete 14 days (thru 03/06) Tosha Jules Dr, MD Jan 28, 2017 19:40
[2017-01-29] VITALS (7 sets, daily range): BP systolic 102–140; BP diastolic 69–81; PULSE 85–117; RESP 16–20; TEMP 98.1–99.6; O2SAT 100
[2017-01-29] MEDS: ACETAMINOPHEN 325 MG TAB PO PRN ×2 (00:23→22:34)
[2017-01-29] MEDS: CHLORHEXIDINE GLUCONATE 2 % 1 PACK (2 CLOTHS) TOP SCH (02:22)
[2017-01-29] MEDS: INSULIN ASPART SUPPLEMENTAL SCALE SQ SCH ×4 (05:44→21:00)
--- NOTE | 2017-01-29 08:23 | HHI.PR ---
Subjective Remarks Follow-up FUO. MAXIMUM TEMPERATURE 102. Repeat blood cultures obtained. Pending gallium scan. Per case management, discharge on hold pending arrangements of intraperitoneal antibiotics. Again patient has no symptoms even with fever. Discussed with RN Objective Vitals Vital Signs Date Time Temp Pulse Resp B/P Pulse Ox O2 Delivery O2 Flow Rate FiO2 01/29/17 04:00 Room Air 01/29/17 04:00 98.3 93 16 113/81 100 01/29/17 00:00 99.2 95 16 120/73 100 01/29/17 00:00 Room Air 01/28/17 20:00 100 01/28/17 20:00 Room Air 01/28/17 20:00 98.8 104 18 116/74 99 01/28/17 18:01 100.6 01/28/17 16:00 102.0 108 16 112/73 100 01/28/17 12:00 98.4 95 18 117/74 100 01/28/17 09:10 Room Air 01/28/17 08:41 100 I/O 01/28/17 01/28/17 01/28/17 01/29/17 01/29/17 01/29/17 07:00 15:00 23:00 07:00 15:00 23:00 Intake Total 480 ml Output Total 749 ml 0 ml 1239 ml Balance -269 ml 0 ml -1239 ml Intake Oral 480 ml Output Urine Total 0 ml Peritoneal Fluid 749 ml 1239 ml # Voids 0 # Bowel Movements 0 Result Diagram: 01/26/17 0707 01/26/17 0707 Imaging Last Impressions Chest X-Ray 01/23/17 0000 Signed Impressions: Service Date/Time: Monday, January 23, 2017 11:42 - CONCLUSION: 1. No acute abnormality or significant interval change. González Mederos MD Lung Scan-VQ Nuclear Medicine 01/16/17 0000 Signed Impressions: Service Date/Time: Monday, January 16, 2017 15:38 - CONCLUSION: Low probability for pulmonary embolism. Edgardo Goldstein MD FACR Lower Extremity Ultrasound 01/16/17 0000 Signed Impressions: Service Date/Time: Monday, January 16, 2017 08:17 - CONCLUSION: Normal examination. Satinder Khanna Jr., MD Abdomen/Pelvis CT 01/15/17 0000 Signed Impressions: Service Date/Time: January 22:54 - CONCLUSION: 1. Patient is on peritoneal dialysis. There is small moderate ascites, increased from before. No loculated fluid. 2. Decreased gastric wall thickening, now mild. Nasogastric tube has been removed. 3. No obstruction or perceptible acute inflammatory changes seen of the gastrointestinal tract. Juan Mercado MD Objective Remarks GENERAL: This is a well-nourished, well-developed patient, in no apparent distress. SKIN: No rashes, warm and dry HEAD: Atraumatic. Normocephalic. EYES: Pupils equal round and reactive. Extraocular motions intact. No scleral icterus. ENT: Nose without bleeding, or drainage, Airway patent. NECK: Trachea midline. Supple CARDIOVASCULAR: Improving tachycardia without murmurs, gallops or rubs. RESPIRATORY: Clear to auscultation bilaterally. No wheezing, rales or rhonchi. GASTROINTESTINAL: Abdomen soft, non-tender, nondistended. Positive bowel sounds. MUSCULOSKELETAL: Extremities without clubbing, cyanosis, edema. Pedal pulses appreciated. NEUROLOGICAL: Awake and alert. Moves all extremity. Normal speech. Procedures EGD A/P Problem List: (1) ESRD (end stage renal disease) ICD Code: N18.6 Status: Acute Assessment and Plan FUO-suspected PD related peritonitis Presented with abdominal pain, vomiting and diarrhea. Found to have lactic acidosis. CT abdomen and pelvis noncontrast with normal gallbladder, liver, pancreas. Triglyceride level elevated but not contributory, 290. No prior h/o pancreatitis. There is thickening of stomach noted on CT abd/pelvis and EGD scheduled for today. Peritoneal fluid initially negative for SBP, but repeat sample indicative of SBP. Symptoms resolved. Still spiking fevers. Echo revealed evidence of vegetation on the mitral valve. Blood cultures with no growth at this time. Cardiology consult appreciated. ROBYN performed 01/21/17. Negative for endocarditis. - Protonix. - IP Fortaz and vancomycin for 1 more week. Discussed with ID, further fever workup so far urine eosinophils(neg), rheumatoid factor(neg), SPEP (no monoclonal protein), ESR(140), CK(low) and lipase(WNL). Though he has intermittent fever, patient he does not look septic and doesn't even feel feverish. Follow-up pending MTB, repeat blood culture and the limbs can - repeat panculture negative to date. Hematemesis One episode 01/23/17. GI consult appreciated. - EGD showed esophagitis and gastritis. Continue PPI. Antireflux mechanisms discussed with the patient. Follow up pathology no fungal organisms. Negative for H. pylori. He has reactive gastropathy and esophagitis - PPI. - Follow CBC and transfuse if hemoglobin is less than 7. Acute respiratory alkalosis/ COPD Alkalosis likely compensatory for metabolic acidosis. Pt was previously on prednisone, unclear if secondary to COPD. He smokes a pack every few days. Breathing is stable at this point. S/p prednisone. - smoking cessation instruction. - oxygen as needed. - encourage ambulation. Hypertension The pt has been hypotensive, now hypertensive. Stable. - resume clonidine at a lower dose and amlodipine. Increase clonidine as needed. Chronic anemia Likely s/t chronic disease. - follow CBC and transfuse as needed. Sinus tachycardia Multifactorial. TSH within normal limits. Improving continue metoprolol which is a selective beta 1 blockers which is generally safe in COPD -- telemetry. Diabetes mellitus Poorly controlled. - low dose dose insulin sliding scale. Improving hyperglycemia. Continue Levemir 7 units daily, 5 units HS. Secondary hyperparathyroidism S/t renal disease. - Calcitriol 0.25 mg po daily, calcium acetate 667 mg po tid. PPx: Heparin Discharge Planning Discharge yesterday was placed on hold until arrangements made for SNF/abx pending Gallium . Jb RN to clarify with ID re dc plans Abando,Dean Marin MD Jan 29, 2017 08:23
[2017-01-29] MEDS: DOCUSATE SODIUM 50 MG/SENNA 8.6 MG TAB PO SCH ×2 (09:00→21:00)
[2017-01-29] MEDS: HEPARIN SODIUM - SQ 10,000 UNITS/ML VIAL SQ SCH ×2 (10:14→22:37)
[2017-01-29] MEDS: THIAMINE HCL 100 MG TAB PO SCH (10:14)
[2017-01-29] MEDS: CALCIUM ACETATE 667 MG CAP PO SCH ×3 (10:14→17:10)
[2017-01-29] MEDS: PANTOPRAZOLE SOD 40 MG DELAYED RELEASE TAB PO SCH (10:14)
[2017-01-29] MEDS: cloNIDine HCL 0.1 MG TAB PO SCH ×3 (10:14→17:10)
[2017-01-29] MEDS: CALCITRIOL 0.25 MCG CAP PO SCH (10:14)
[2017-01-29] MEDS: METOPROLOL TARTRATE 25 MG TAB PO SCH ×2 (10:14→22:35)
[2017-01-29] MEDS: amLODIPine BESYLATE 5 MG TAB PO SCH ×2 (10:14→22:36)
[2017-01-29] MEDS: SODIUM CHLORIDE 0.9% FLUSH 10 ML FLUSH SCH ×2 (10:15→22:48)
[2017-01-29] MEDS: INSULIN DETEMIR 100 UNITS/ML VIAL SQ SCH ×2 (10:18→22:43)
--- NOTE | 2017-01-29 13:04 | HHI.NPPN ---
Subjective History of Present Illness 61-year-old black male with history of end-stage renal disease, hypertension, new onset of diabetes he was admitted last time with severe hyperglycemia, he was discharge home and he said he did not know how to take insulin and has not taken insulin him back with some abdominal pain, hyperglycemia and received peritoneal dialysis culture has been pending total WBC count was 120 with only 8 % neutrophils. Additional Remarks PD carried out. Review of Systems General Constitutional: Fatigue Cardiovascular Cardiac: AGUILAR Objective Data Data 01/28/17 01/29/17 19:00 07:00 Intake Total 480 ml Output Total 749 ml 0 ml Balance -269 ml 0 ml Intake Oral 480 ml Output Urine Total 0 ml Peritoneal Fluid 749 ml # Voids 0 # Bowel Movements 0 Vital Signs Date Time Temp Pulse Resp B/P Pulse Ox O2 Delivery O2 Flow Rate FiO2 01/29/17 12:00 99.6 85 16 102/69 100 01/29/17 08:15 Room Air 01/29/17 08:00 98.1 106 18 140/80 100 01/29/17 07:57 112 01/29/17 04:00 Room Air 01/29/17 04:00 98.3 93 16 113/81 100 01/29/17 00:00 99.2 95 16 120/73 100 01/29/17 00:00 Room Air 01/28/17 20:00 100 01/28/17 20:00 Room Air 01/28/17 20:00 98.8 104 18 116/74 99 01/28/17 18:01 100.6 01/28/17 16:00 102.0 108 16 112/73 100 -: 01/26/17 0707 01/26/17 0707 Microbiology 01/28/17 Aerobic Blood Culture - Preliminary, Resulted NO GROWTH IN 1 DAY 01/28/17 Anaerobic Blood Culture - Preliminary, Resulted NO GROWTH IN 1 DAY 01/28/17 Aerobic Blood Culture - Preliminary, Resulted NO GROWTH IN 1 DAY 01/28/17 Anaerobic Blood Culture - Preliminary, Resulted NO GROWTH IN 1 DAY Physical Exam General Appearance: Well Nourished, No Acute Distress, Comfortable Eyes Eye Exam: Pupils Equal Throat Throat Exam: Oral Mucosa [place] & Moist Neck Neck Exam: Neck Supple Pulmonary Resp Exam: Breath Sounds Equal, No Distress, Decreased Bases Cardiology CV Exam: Tachycardia Gastrointestinal/Abdomen GI Exam: Soft, Non-Tender, Bowel Sounds Present, Distended (with PD catheter in place.) Extremeties Extremities Exam: Trace Edema Neurologic Neuro Exam: Alert, Awake, Oriented Psychiatric Psych Exam: Appropriate Responses Assessment/Plan Problem List: (1) ESRD (end stage renal disease) Plan: Patient is on peritoneal dialysis, Using 2.5 % dextrose and 1.5%, 1800 ml fill volume, with last fill of 1500 ml of 1.5%, dwell time 6 hours. Last fill contains Fortaz. Cultures have been negative. social issues Vascular AVF placement as unsafe to do PD Poor technique, per nurses, fever of unknown origin, consult Vascular for AVF may need PD catheter out as a last resort as febrile on and off he is receiving IP Fortaz. repeat culture no evidence of peritonitis fever ID can be followed as out patient no obvious source of infection FU with Dr. Lazaro (2) Lactic acidosis Plan: due to infection/sepsis. (3) HTN (hypertension) Plan: Continue to monitor (4) Diabetic hyperosmolar non-ketotic state Plan: Blood sugar is acceptable. Problem Qualifiers (1) HTN (hypertension): Qualified Code: I10 - Essential hypertension Ned Sosa MD Jan 29, 2017 13:04
[2017-01-29 16:38] LABS: MITOGEN MINUS NIL RESULT >10.00 IU/mL (()); NIL RESULT 0.15 IU/mL (()); QUANTIFERON TB GOLD RESULT Positive (Negative)
--- NOTE | 2017-01-29 16:45 | PD.VS.CON ---
History of Present Illness Chief Complaint: ESRD, need for HD access as PD failing Consult Requested by: medical svc and nephrology History of Present Illness 61 yo male who has been on dialysis x 3m. Currently on PD but reportedly that is failing. Started with a catheter. No prior HD attempts. RIGHT handed. He is in the hospital for profound hyperglycemia (last Hgb A1c 11.4 at the end of December). Also concerns for underlying infection and on antibiotics but all cx NGTD, CT negative and echo negative for endocarditis Past/Family/Social History Past Medical History ESRD hep C DM HTN Past Surgical History R 5th digit amputation (work trauma) Social History lives in [facility] Family History no one on HD Home Medications Active Scripts Metoprolol Tartrate 25 Mg Tab12.5 Mg PO Q12HR #60 TAB Prov:Dean Nuñez MD 01/27/17 Thiamine HCl (Gnp Vitamin B-1)100 Mg [id number] Mg PO DAILY #30 TAB Prov:Dean Nuñez MD 01/26/17 Sennosides-Docusate Sodium (Senna Plus 8.6-50 mg)1 Tab Tab1 Tab PO BID #60 TAB Prov:Dean Nuñez MD 01/26/17 Pantoprazole 40 Mg Tab40 Mg PO DAILY #30 TAB Prov:Dean Nuñez MD 01/26/17 Insulin Detemir Inj (Levemir Inj)1,000 unit/ 10 ML Vial7 Units SQ DAILY #30 INJECTION Prov:Dean Nuñez MD 01/26/17 Insulin Detemir Inj (Levemir Inj)1,000 unit/ 10 ML Vial5 Units SQ HS #30 INJECTION Prov:Dean Nuñez MD 01/26/17 Clonidine (Catapres)0.1 Mg Tab0.1 Mg PO TID #90 TAB Prov:Dean Nuñez MD 01/26/17 Blood Glucose Monitoring Supply (Trueresult Blood Glucose)System Kit #1 KIT .ROUTE DIRECTED Ref 0 Prov:Hyun Mcdaniel MD 01/06/17 Carefine [place] 31G X 6 mm 1 Mis Mis #1 Ea .route As Directed Prov:Hyun Mcdaniel MD 01/06/17 Insulin Aspart Inj (Novolog Flexpen Inj)300 Unit/3 Ml Pen1 Units SQ ACHS SLIDING SCALE #1 PEN Ref 0 blood sugar <150 do not give insulin. blood sugar 150-180 give 2 units of insulin before meals. blood sugar 181-200 give 3 units of insulin before meals. blood sugar 201 and above give 4 units of insulin before meals. Prov:Hyun Mcdaniel MD 01/06/17 Insulin Glargine Inj (Lantus Solostar Pen Inj)300 Unit/3 Ml Pen5 Units SQ DAILY #1 PEN Ref 0 Prov:Hyun Mcdaniel MD 01/06/17 Calcium Acetate (Phosphate Bin (Calcium Acetate)667 Mg [id number] Mg PO TID #90 CAP Ref 0 Prov:Kiko Vazquez MD R2 10/24/16 Amlodipine (Norvasc)5 Mg Tab5 Mg PO BID #60 TAB Ref 0 Prov:Kiko Vazquez MD R2 10/24/16 Reported Medications Prednisone 20 Mg Tab20 Mg PO BID Ref 0 01/15/17 Calcitriol 0.25 Mcg Cap0.25 Mcg PO DAILY #30 CAP Ref 0 01/15/17 Ranitidine 150 Mg [id number] Mg PO BID #60 CAP Ref 0 10/20/16 Clonidine 0.3 Mg Tab0.3 Mg PO TID #60 TAB Ref 0 10/20/16 Coded Allergies: Aspirin (Unverified Allergy, Unknown, 01/15/17) HEP C Review of Systems Respiratory: DENIES: Cough Cardiovascular: DENIES: Chest pain Physical Exam Vitals/I&O Date Time Temp Pulse Resp B/P Pulse Ox O2 Delivery O2 Flow Rate FiO2 01/29/17 16:00 98.7 117 18 125/81 100 01/29/17 12:00 99.6 85 16 102/69 100 01/29/17 08:15 Room Air 01/29/17 08:00 98.1 106 18 140/80 100 01/29/17 07:57 112 01/29/17 04:00 Room Air 01/29/17 04:00 98.3 93 16 113/81 100 01/29/17 00:00 99.2 95 16 120/73 100 01/29/17 00:00 Room Air 01/28/17 20:00 100 01/28/17 20:00 Room Air 01/28/17 20:00 98.8 104 18 116/74 99 01/28/17 18:01 100.6 01/29/17 01/29/17 01/29/17 07:00 15:00 23:00 Intake Total 482 ml Output Total 0 ml 1239 ml Balance 0 ml -757 ml Neuro: alert, oriented, pleasant HEENT: NC/AT Neck: no JVD Heart: reg rate, no M Lungs: clear B Abdomen: NT Vascular: palpable B UE brachial pulses Extremities: no edema UE; R 5th digit amputation IP joint Laboratory Tests Test 01/29/17 05:25 Lactate Dehydrogenase 307 Date/Time Procedure Status Source Growth 01/28/17 18:03 Aerobic Blood Culture - Preliminary Resulted Blood Peripheral NO GROWTH IN 1 DAY 01/28/17 18:03 Anaerobic Blood Culture - Preliminary Resulted Blood Peripheral NO GROWTH IN 1 DAY 01/27/17 17:00 Gram Stain - Final Resulted Fluid Peritoneal Fluid 01/27/17 17:00 Body Fluid Culture - Preliminary Resulted Fluid Peritoneal Fluid NO GROWTH IN 48 HOURS. Assessment and Plan Plan Failing PD in patient with poor compliance and likely better off with HD. 1. B UE vein mapping ordered - will preferentially use LEFT arm given RIGHT handedness 2. If autogenous option, will perform this hospitalization. If he requires proesthetic (AVG) will ask ID opinion re: timing of elective operation. Discussed plan with the patient and he agrees. Will follow. Thank you very much. Jason Fuentes MD FACS, RPVI supervisor pipeline [facility] - Heart and Vascular Surgery at [facility] [phone] Jason Fuentes MD Jan 29, 2017 16:45
--- NOTE | 2017-01-29 17:11 | RADRPT ---
EXAM DATE/TIME: 01/29/2017 16:57 [place] COMPARISON: CT ABDOMEN & PELVIS W/O CONTRAST, January 15, 2017, 22:54. INDICATIONS : Cramping with abdominal pain , discontinued insulin RADIATION DOSE: 3.74 CTDIvol (mGy) MEDICAL HISTORY : Cardiovascular disease. Hypertension. Chronic obstructive pulmonary disease. Diabetes mellitus ENCOUNTER: Initial ACUITY: 1 day PAIN SCALE: 5/10 LOCATION: Bilateral chest TECHNIQUE: Volumetric scanning of the chest was performed. Using automated exposure control and adjustment of t he mA and/or kV according to patient size, radiation dose was kept as low as reasonably achievable to obtain optimal diagnostic quality images. FINDINGS: Comparison CT on January 15. There is a new small left-sided pleural effusion. There is mild emphysema. N o significant lung consolidation. No suspicious lung mass. There is no hilar, mediastinal axillary adenopathy. No CT findings for lymphoma. Mild coronary calcif ications. Upper abdomen reveals ascites as noted on prior study from January 15. CONCLUSION: 1. No adenopathy or mediastinal mass to suggest lymphoma. 2. Small left pleural effusion which is a new finding since January 15. No lung consolidation. Mild emphy sema. Marcello Disla MD on January 29, 2017 at 17:03 Board Certified Radiologist. This report was verified electronically.
[2017-01-29] MEDS: VANCOMYCIN HCL 1000 MG VIAL IP SCH (18:00)
--- NOTE | 2017-01-29 18:50 | HHI.IDPN ---
Subjective Subjective Remarks + fever up to 102 2 days ago now afebrile agian TB quantiferron low + pt reports neg [facility] ESR > 140 denies cough, sputum production, diarrhea disuria, testicular pain , back pain Antibiotics vanco IP cefepime IP Allergies: Coded Allergies: Aspirin (Unverified Allergy, Unknown, 01/15/17) HEP C Objective . Vital Signs Date Time Temp Pulse Resp B/P Pulse Ox O2 Delivery O2 Flow Rate FiO2 01/29/17 16:00 Room Air 01/29/17 16:00 98.7 117 18 125/81 100 01/29/17 12:00 Room Air 01/29/17 12:00 99.6 85 16 102/69 100 01/29/17 08:15 Room Air 01/29/17 08:00 98.1 106 18 140/80 100 01/29/17 07:57 112 01/29/17 04:00 Room Air 01/29/17 04:00 98.3 93 16 113/81 100 01/29/17 00:00 99.2 95 16 120/73 100 01/29/17 00:00 Room Air 01/28/17 20:00 100 01/28/17 20:00 Room Air 01/28/17 20:00 98.8 104 18 116/74 99 01/28/17 01/28/17 01/29/17 15:00 23:00 07:00 Intake Total 480 ml Output Total 749 ml 0 ml Balance -269 ml 0 ml Intake Oral 480 ml Output Urine Total 0 ml Peritoneal Fluid 749 ml # Voids 0 # Bowel Movements 0 . Laboratory Tests Test 01/28/17 01/29/17 05:25 05:25 Total Creatine Kinase 29 U/L Lactate Dehydrogenase 307 U/L Microbiology Date/Time Procedure Status Source Growth 01/27/17 17:00 Gram Stain - Final Resulted Fluid Peritoneal Fluid 01/27/17 17:00 Body Fluid Culture - Preliminary Resulted Fluid Peritoneal Fluid NO GROWTH IN 48 HOURS. 01/28/17 17:57 Aerobic Blood Culture - Preliminary Resulted Blood Peripheral NO GROWTH IN 1 DAY 01/28/17 17:57 Anaerobic Blood Culture - Preliminary Resulted Blood Peripheral NO GROWTH IN 1 DAY 01/28/17 18:03 Aerobic Blood Culture - Preliminary Resulted Blood Peripheral NO GROWTH IN 1 DAY 01/28/17 18:03 Anaerobic Blood Culture - Preliminary Resulted Blood Peripheral NO GROWTH IN 1 DAY Imaging Last Impressions Chest X-Ray 01/23/17 0000 Signed Impressions: Service Date/Time: Monday, January 23, 2017 11:42 - CONCLUSION: 1. No acute abnormality or significant interval change. González Mederos MD Lung Scan-VQ Nuclear Medicine 01/16/17 0000 Signed Impressions: Service Date/Time: Monday, January 16, 2017 15:38 - CONCLUSION: Low probability for pulmonary embolism. Edgardo Goldstein MD FACR Lower Extremity Ultrasound 01/16/17 0000 Signed Impressions: Service Date/Time: Monday, January 16, 2017 08:17 - CONCLUSION: Normal examination. Satinder Khanna Jr., MD Abdomen/Pelvis CT 01/15/17 0000 Signed Impressions: Service Date/Time: January 22:54 - CONCLUSION: 1. Patient is on peritoneal dialysis. There is small moderate ascites, increased from before. No loculated fluid. 2. Decreased gastric wall thickening, now mild. Nasogastric tube has been removed. 3. No obstruction or perceptible acute inflammatory changes seen of the gastrointestinal tract. Juan Mercado MD Physical Exam CONSTITUTIONAL/GENERAL: This is an adequately nourished patient, in no apparent distress. TUBES/LINES/DRAINS: SKIN: No jaundice, rashes, or lesions. . EYES: No scleral icterus. CARDIOVASCULAR: Regular rate and rhythm without murmurs, gallops, or rubs. No JVD. Peripheral pulses symmetric. RESPIRATORY/CHEST: Symmetric, unlabored respirations. Clear to auscultation. Breath sounds equal bilaterally. No wheezes, rales, or rhonchi. GASTROINTESTINAL: Abdomen soft, non-tender, mildly distended. No hepato- splenomegaly, or palpable masses. No guarding. Bowel sounds present. Tenkoff in place -site [place] MUSCULOSKELETAL: Extremities without clubbing, cyanosis, or edema. NEUROLOGICAL: Awake and alert. Non focal Lymphatics: no cervical, axillar or supraclavicular LAD PSYCHIATRIC: No obvious anxiety/depression. no apparent hallucinations or other psychotic thought process. Assessment & Plan Remarks FUO - Worsening, now spikes to 102.6 - New low positive TB test (quantiferron); non localizing - ROBYN negative - HIV neg - CMV, crypto - neg - all clx negative up to date - Procalcitonine high, but pt is in ESRD - diff to interprete - small leukocyutosis as well - [place] CPK RF neg; SPEP cw renal protein loss Leukocytosis, mild - resolved lactic acidosis -- resolved suspected PD related peritonitis, clx negative - neg routine clx @ 48 hrs Poorly controlled DM Immunosuppressed: high dose d sterroids (pt is unaware for what disease and for how long he is taking it "I just take what the doctor tells me"): still unclear the indication for prednisone - Prednisone stopped HCV Elevated lipase, but no abd pain to suggest pancreatitis and no CT changes New issue - hematoemesis, resolved ? post procedure - sp EGD, path P; esophagitits seen, can not explain pt's FUO REC's: fu * WBC study cont cefepime, vanco IP x 1 more week to complete 14 days (thru 03/06) repeat qunatiferon on another specimen dw pt Tosha Mitchell MD Jan 29, 2017 18:50
--- NOTE | 2017-01-29 19:34 | RADRPT ---
EXAM DATE/TIME: 01/29/2017 18:08 [facility] COMPARISON: No previous studies available for comparison. INDICATIONS : AVF planning. MEDICAL HISTORY : Hypertension. Chronic obstructive pulmonary disease. Hepatitis C. Migraines. Arthritis. Diabetes. End stage renal disease. Dialysis. SURGICAL HISTORY : Left knee surgery. ENCOUNTER: Initial ACUITY: 1 day PAIN SCORE: 1/10 LOCATION: Bilateral arms. CEPHALIC: ORIGIN: Right 1 mm Left 1 mm MID-ARM: Right 1 mm Left Non-visualized ELBOW: Right 1 mm Left 1 mm FOREARM: Right 1 mm Left 1 mm WRIST: Right 1 mm Left 1 mm BASILIC: ORIGIN: Right 2 mm Left 1 mm MID-ARM: Right 1 mm Left 1 mm ELBOW: Right 1 mm Left 1 mm ARTERIES: BRACHIAL: Right 5 mm Left 5 mm ULNAR: Right 2 mm Left 1 mm RADIAL: Right 2 mm Left 2 mm VEINS: RADIAL: Right 1 mm Left 1 mm ULNAR: Right 1 mm Left 1 mm FINDINGS: The venous system of the upper extremities are patent by color Doppler imaging. Measurements of the arm veins (in mm) are listed above. CONCLUSION: Venous mapping study as described. Saud Kowalski MD on January 29, 2017 at 19:30 Board Certified Radiologist. This report was verified electronically.
--- NOTE | 2017-01-29 19:45 | RADRPT ---
EXAM DATE/TIME: 01/29/2017 17:57 [facility] COMPARISON: No previous studies available for comparison. INDICATIONS : AVF planning. MEDICAL HISTORY : Hypertension. Chronic obstructive pulmonary disease. Hepatitis C. Migraines. Arthritis. Diabetes. End stage renal disease. Dialysis. SURGICAL HISTORY : Left knee surgery. ENCOUNTER: Initial ACUITY: 1 day PAIN SCORE: 1/10 LOCATION: Bilateral arms. FINDINGS: RIGHT UPPER EXTREMITY: There is spontaneous flow documented in the brachial, basilic, cephalic, axillary, and subclavian vei ns. The vessels are compressible and augmentation response is documented. No filling defects are se en. The flow is phasic with respiration. Direction of flow in the jugular vein is caudal. LEFT UPPER EXTREMITY: There is spontaneous flow documented in the brachial, basilic, cephalic, axillary, and subclavian vei ns. The vessels are compressible and augmentation response is documented. No filling defects are se en. The flow is phasic with respiration. Direction of flow in the jugular vein is caudal. CONCLUSION: Negative exam with no evidence of deep venous thrombosis. Saud Kowalski MD on January 29, 2017 at 19:41 Board Certified Radiologist. This report was verified electronically.
[2017-01-30] VITALS (8 sets, daily range): BP systolic 102–120; BP diastolic 65–74; PULSE 90–110; RESP 18–20; TEMP 98.3–99.8; O2SAT 97–100
[2017-01-30] MEDS: CHLORHEXIDINE GLUCONATE 2 % 1 PACK (2 CLOTHS) TOP SCH (02:55)
[2017-01-30] MEDS: INSULIN ASPART SUPPLEMENTAL SCALE SQ SCH ×3 (05:31→15:45)
[2017-01-30] MEDS: PANTOPRAZOLE SOD 40 MG DELAYED RELEASE TAB PO SCH (08:20)
[2017-01-30] MEDS: CALCIUM ACETATE 667 MG CAP PO SCH ×3 (08:20→17:43)
[2017-01-30] MEDS: METOPROLOL TARTRATE 25 MG TAB PO SCH ×2 (08:20→21:00)
[2017-01-30] MEDS: THIAMINE HCL 100 MG TAB PO SCH (08:20)
[2017-01-30] MEDS: CALCITRIOL 0.25 MCG CAP PO SCH (08:20)
[2017-01-30] MEDS: cloNIDine HCL 0.1 MG TAB PO SCH ×3 (08:20→17:43)
[2017-01-30] MEDS: HEPARIN SODIUM - SQ 10,000 UNITS/ML VIAL SQ SCH ×2 (08:20→21:58)
[2017-01-30] MEDS: amLODIPine BESYLATE 5 MG TAB PO SCH ×2 (08:20→21:58)
[2017-01-30] MEDS: INSULIN DETEMIR 100 UNITS/ML VIAL SQ SCH ×2 (08:21→22:05)
[2017-01-30] MEDS: SODIUM CHLORIDE 0.9% FLUSH 10 ML FLUSH SCH ×2 (08:21→21:58)
[2017-01-30] MEDS: DOCUSATE SODIUM 50 MG/SENNA 8.6 MG TAB PO SCH ×2 (08:21→21:00)
--- NOTE | 2017-01-30 09:10 | HHI.PR ---
Subjective Remarks Follow-up FUO. Tmax 99.6. Again patient is asymptomatic denies fever, chills, cough, UTI symptoms and diarrhea. No rash. Dw ID Dr Mitchell, melina if gallium negative and IP Francoise arranged Objective Vitals Vital Signs Date Time Temp Pulse Resp B/P Pulse Ox O2 Delivery O2 Flow Rate FiO2 01/30/17 08:14 Room Air 01/30/17 08:08 105 01/30/17 04:00 Room Air 01/30/17 04:00 98.3 97 20 102/70 100 01/30/17 00:00 98.9 90 18 117/74 100 01/30/17 00:00 Room Air 01/29/17 20:00 98.5 106 20 122/75 100 01/29/17 20:00 104 01/29/17 20:00 Room Air 01/29/17 16:00 Room Air 01/29/17 16:00 98.7 117 18 125/81 100 01/29/17 12:00 Room Air 01/29/17 12:00 99.6 85 16 102/69 100 I/O 01/29/17 01/29/17 01/29/17 01/30/17 01/30/17 01/30/17 07:00 15:00 23:00 07:00 15:00 23:00 Intake Total 482 ml 240 ml 0 ml Output Total 0 ml 1239 ml 0 ml 0 ml 1000 ml Balance 0 ml -757 ml 240 ml 0 ml -1000 ml Intake Oral 480 ml 240 ml 0 ml IV Total 2 ml Output Urine Total 0 ml 0 ml 0 ml Peritoneal Fluid 1239 ml 1000 ml # Voids 1 # Bowel Movements 1 0 0 Result Diagram: 01/26/17 0707 01/26/17 0707 Imaging Last Impressions Upper Extremity Ultrasound 01/29/17 0000 Signed Impressions: Service Date/Time: January 17:57 - CONCLUSION: Negative exam with no evidence of deep venous thrombosis. Saud Kowalski MD Chest CT 01/29/17 0000 Signed Impressions: Service Date/Time: January 16:57 - CONCLUSION: 1. No adenopathy or mediastinal mass to suggest lymphoma. 2. Small left pleural effusion which is a new finding since January 15. No lung consolidation. Mild emphysema. Marcello Disla MD Chest X-Ray 01/23/17 0000 Signed Impressions: Service Date/Time: Monday, January 23, 2017 11:42 - CONCLUSION: 1. No acute abnormality or significant interval change. González Mederos MD Lung Scan-VQ Nuclear Medicine 01/16/17 Signed Impressions: Service Date/Time: Monday, January 16, 2017 15:38 - CONCLUSION: Low probability for pulmonary embolism. Edgardo Goldstein MD FACR Lower Extremity Ultrasound 01/16/17 Signed Impressions: Service Date/Time: Monday, January 16, 2017 08:17 - CONCLUSION: Normal examination. Satinder Khanna Jr., MD Abdomen/Pelvis CT 01/15/17 Signed Impressions: Service Date/Time: January 22:54 - CONCLUSION: 1. Patient is on peritoneal dialysis. There is small moderate ascites, increased from before. No loculated fluid. 2. Decreased gastric wall thickening, now mild. Nasogastric tube has been removed. 3. No obstruction or perceptible acute inflammatory changes seen of the gastrointestinal tract. Juan Mercado MD Objective Remarks GENERAL: This is a well-nourished, well-developed patient, in no apparent distress. SKIN: No rashes, warm and dry HEAD: Atraumatic. Normocephalic. EYES: Pupils equal round and reactive. Extraocular motions intact. No scleral icterus. ENT: Nose without bleeding, or drainage, Airway patent. NECK: Trachea midline. Supple CARDIOVASCULAR: Improving tachycardia without murmurs, gallops or rubs. RESPIRATORY: Clear to auscultation bilaterally. No wheezing, rales or rhonchi. GASTROINTESTINAL: Abdomen soft, non-tender, nondistended. Positive bowel sounds. MUSCULOSKELETAL: Extremities without clubbing, cyanosis, edema. Pedal pulses appreciated. NEUROLOGICAL: Awake and alert. Moves all extremity. Normal speech. Procedures EGD A/P Problem List: (1) ESRD (end stage renal disease) ICD Code: N18.6 Status: Acute Assessment and Plan FUO-suspected PD related peritonitis Presented with abdominal pain, vomiting and diarrhea. Found to have lactic acidosis. CT abdomen and pelvis noncontrast with normal gallbladder, liver, pancreas. Triglyceride level elevated but not contributory, 290. No prior h/o pancreatitis. There is thickening of stomach noted on CT abd/pelvis [place] post EGD. Peritoneal fluid initially negative for SBP, but repeat sample indicative of SBP. Symptoms resolved. Still with intermittent fevers. Echo revealed evidence of vegetation on the mitral valve. Blood cultures with no growth at this time. Cardiology consult appreciated. ROBYN performed 01/21/17. Negative for endocarditis. - Protonix. - IP Fortaz till 02/04/17 s/p vancomycin. Repeat peritoneal fluid studies ( third time) not indicative of peritonitis. Discussed with ID, further fever workup so far urine eosinophils(neg), rheumatoid factor(neg), SPEP (no monoclonal protein), ESR(140), CK(low) and lipase(WNL). Though he has intermittent fever, patient he does not look septic and doesn't even feel feverish. Low positive MTB (previously negative), repeat test pending. CT of the chest with small left pleural effusion. LDH elevated. Follow-up pending gallium scan - repeat panculture negative to date. End-stage renal disease on dialysis. Renal consulted vascular surgery for aVF pending ID clearance. Patient has been noncompliant with poor technique doing PD Hematemesis One episode 01/23/17. GI consult appreciated. - EGD showed esophagitis and gastritis. Continue PPI. Antireflux mechanisms discussed with the patient. Follow up pathology no fungal organisms. Negative for H. pylori. He has reactive gastropathy and esophagitis - PPI. - Follow CBC and transfuse if hemoglobin is less than 7. Acute respiratory alkalosis/ COPD Alkalosis likely compensatory for metabolic acidosis. Pt was previously on prednisone, unclear if secondary to COPD. He smokes a pack every few days. Breathing is stable at this point. S/p prednisone. - smoking cessation instruction. - oxygen as needed. - encourage ambulation. Hypertension The pt has been hypotensive, now hypertensive. Stable. - resume clonidine at a lower dose and amlodipine. Increase clonidine as needed. Chronic anemia Likely s/t chronic disease. - follow CBC and transfuse as needed. Sinus tachycardia Multifactorial. TSH within normal limits. Improving continue metoprolol which is a selective beta 1 blockers which is generally safe in COPD -- telemetry. Diabetes mellitus Poorly controlled. - low dose dose insulin sliding scale. Improving hyperglycemia. Continue Levemir 7 units daily, 5 units HS. Secondary hyperparathyroidism S/t renal disease. - Calcitriol 0.25 mg po daily, calcium acetate 667 mg po tid. PPx: Heparin Discharge Planning Discharge on hold until arrangements made for SNF/abx pending Gallium . Dean Pack MD Jan 30, 2017 09:10
[2017-01-30] MEDS ORDERED: SODIUM CHLOR 0.9% 1000 ML INJ 1,000 ML IV PRN ×3 (13:20)
--- NOTE | 2017-01-30 13:24 | HHI.NPPN ---
Subjective History of Present Illness 61-year-old black male with history of end-stage renal disease, hypertension, new onset of diabetes he was admitted last time with severe hyperglycemia, he was discharge home and he said he did not know how to take insulin and has not taken insulin him back with some abdominal pain, hyperglycemia and received peritoneal dialysis culture has been pending total WBC count was 120 with only 8 % neutrophils. Additional Remarks PD carried out. Review of Systems General Constitutional: Fatigue Cardiovascular Cardiac: AGUILAR Objective Data Data 01/29/17 01/30/17 19:00 07:00 Intake Total 482 ml 240 ml Output Total 1239 ml 0 ml Balance -757 ml 240 ml Intake Oral 480 ml 240 ml IV Total 2 ml Output Urine Total 0 ml Peritoneal Fluid 1239 ml # Voids 1 # Bowel Movements 1 0 Vital Signs Date Time Temp Pulse Resp B/P Pulse Ox O2 Delivery O2 Flow Rate FiO2 01/30/17 12:00 99.0 99 18 104/69 99 01/30/17 12:00 Room Air 01/30/17 08:14 Room Air 01/30/17 08:08 105 01/30/17 08:00 98.9 104 18 120/72 100 01/30/17 04:00 Room Air 01/30/17 04:00 98.3 97 20 102/70 100 01/30/17 00:00 98.9 90 18 117/74 100 01/30/17 00:00 Room Air 01/29/17 20:00 98.5 106 20 122/75 100 01/29/17 20:00 104 01/29/17 20:00 Room Air 01/29/17 16:00 Room Air 01/29/17 16:00 98.7 117 18 125/81 100 -: 01/26/17 0707 01/26/17 0707 Physical Exam General Appearance: Well Nourished, No Acute Distress, Comfortable Eyes Eye Exam: Pupils Equal Throat Throat Exam: Oral Mucosa [place] & Moist Neck Neck Exam: Neck Supple Pulmonary Resp Exam: Breath Sounds Equal, No Distress, Decreased Bases Cardiology CV Exam: Tachycardia Gastrointestinal/Abdomen GI Exam: Soft, Non-Tender, Bowel Sounds Present, Distended (with PD catheter in place.) Extremeties Extremities Exam: Trace Edema Neurologic Neuro Exam: Alert, Awake, Oriented Psychiatric Psych Exam: Appropriate Responses Assessment/Plan Problem List: (1) ESRD (end stage renal disease) Plan: Patient is on peritoneal dialysis, Using 2.5 % dextrose and 1.5%, 1800 ml fill volume, with last fill of 1500 ml of 1.5%, dwell time 6 hours. Last fill contains Fortaz. Cultures have been negative. social issues Vascular AVF placement as unsafe to do PD Poor technique, per nurses, fever of unknown origin, appreciate Vascular input may need PD catheter out as a last resort as febrile on and off he is receiving IP Fortaz. repeat culture no evidence of peritonitis fever not present today convert to hemodialysis as unable to discharge and he is not doing it properly PermCath discussed he agrees d/w Dr Mitchell TB test weakly positive check PPD in clinic October 29 negative December 04 negative ID can be followed as out patient no obvious source of infection FU with Dr. Lazaro (2) HTN (hypertension) Plan: Continue to monitor (3) Diabetic hyperosmolar non-ketotic state Plan: Blood sugar is acceptable. Problem Qualifiers (1) HTN (hypertension): Qualified Code: I10 - Essential hypertension Ned Sosa MD Jan 30, 2017 13:24
[2017-01-30] MEDS ORDERED: SODIUM CHLORIDE 0.9% FLUSH 10 ML FLUSH IV FLUSH PRN (13:30)
[2017-01-30] MEDS ORDERED: MANNITOL 12.5 GM/50 ML VIAL IV PRN (13:30)
[2017-01-30] MEDS ORDERED: HEPARIN SODIUM - IV 10,000 UNITS/10 ML VIAL IVF PRN (13:30)
[2017-01-30] MEDS ORDERED: HEPARIN SODIUM - IV 10,000 UNITS/10 ML VIAL PRN (13:30)
[2017-01-30] MEDS ORDERED: ACETAMINOPHEN 325 MG TAB PO PRN (13:30)
[2017-01-30] MEDS ORDERED: ALBUMIN HUMAN 25% 25 GM/100 ML BAGP IV PRN (13:30)
[2017-01-30] MEDS ORDERED: GELATIN 12 MM/7 MM FOAM TOP PRN (13:30)
[2017-01-30] MEDS ORDERED: NITROGLYCERIN 0.4 MG SL 25 TABS/BTL SL PRN (13:30)
[2017-01-30] MEDS ORDERED: cloNIDine HCL 0.1 MG TAB PO PRN (13:30)
[2017-01-30] MEDS ORDERED: diphenhydrAMINE HCL 25 MG CAP PO PRN (13:30)
[2017-01-30] MEDS ORDERED: ONDANSETRON HCL 4 MG/2 ML VIAL IV PRN (13:30)
--- NOTE | 2017-01-30 19:47 | HHI.IDPN ---
Subjective Subjective Remarks Toyin study in progress remians afbrile for 2 days, then again fever 99.8 TB quantiferron low + pt reports neg PPD 1 mo ago at [facility] ESR > 140 denies cough, sputum production, diarrhea disuria, testicular pain , back pain Dr Sosa is concerned about pt is using improper technic with his PD, plans to convert him to HD Antibiotics vanco IP cefepime IP Allergies: Coded Allergies: Aspirin (Unverified Allergy, Unknown, 01/15/17) HEP C Objective . Vital Signs Date Time Temp Pulse Resp B/P Pulse Ox O2 Delivery O2 Flow Rate FiO2 01/30/17 17:33 97 21 01/30/17 16:00 Room Air 01/30/17 16:00 99.8 97 18 103/65 98 01/30/17 12:00 99.0 99 18 104/69 99 01/30/17 12:00 Room Air 01/30/17 08:14 Room Air 01/30/17 08:08 105 01/30/17 08:00 98.9 104 18 120/72 100 01/30/17 04:00 Room Air 01/30/17 04:00 98.3 97 20 102/70 100 01/30/17 00:00 98.9 90 18 117/74 100 01/30/17 00:00 Room Air 01/29/17 20:00 98.5 106 20 122/75 100 01/29/17 20:00 104 01/29/17 20:00 Room Air 01/29/17 01/29/17 01/30/17 15:00 23:00 07:00 Intake Total 482 ml 240 ml 0 ml Output Total 1239 ml 0 ml 0 ml Balance -757 ml 240 ml 0 ml Intake Oral 480 ml 240 ml 0 ml IV Total 2 ml Output Urine Total 0 ml 0 ml Peritoneal Fluid 1239 ml # Voids 1 # Bowel Movements 1 0 0 . Laboratory Tests Test 01/29/17 05:25 Lactate Dehydrogenase 307 U/L Microbiology Date/Time Procedure Status Source Growth 01/28/17 17:57 Aerobic Blood Culture - Preliminary Resulted Blood Peripheral NO GROWTH IN 2 DAYS 01/28/17 17:57 Anaerobic Blood Culture - Preliminary Resulted Blood Peripheral NO GROWTH IN 2 DAYS 01/28/17 18:03 Aerobic Blood Culture - Preliminary Resulted Blood Peripheral NO GROWTH IN 2 DAYS 01/28/17 18:03 Anaerobic Blood Culture - Preliminary Resulted Blood Peripheral NO GROWTH IN 2 DAYS Imaging Last Impressions Upper Extremity Ultrasound 01/29/17 0000 Signed Impressions: Service Date/Time: January 17:57 - CONCLUSION: Negative exam with no evidence of deep venous thrombosis. Saud Kowalski MD Chest CT 01/29/17 0000 Signed Impressions: Service Date/Time: January 16:57 - CONCLUSION: 1. No adenopathy or mediastinal mass to suggest lymphoma. 2. Small left pleural effusion which is a new finding since January 15. No lung consolidation. Mild emphysema. Marcello Disla MD Chest X-Ray 01/23/17 Signed Impressions: Service Date/Time: Monday, January 23, 2017 11:42 - CONCLUSION: 1. No acute abnormality or significant interval change. González Mederos MD Lung Scan-V Nuclear Medicine 01/16/17 Signed Impressions: Service Date/Time: Monday, January 16, 2017 15:38 - CONCLUSION: Low probability for pulmonary embolism. Edgardo Goldstein MD FACR Lower Extremity Ultrasound 01/16/17 Signed Impressions: Service Date/Time: Monday, January 16, 2017 08:17 - CONCLUSION: Normal examination. Satinder Khanna Jr., MD Abdomen/Pelvis CT 01/15/17 Signed Impressions: Service Date/Time: January 22:54 - CONCLUSION: 1. Patient is on peritoneal dialysis. There is small moderate ascites, increased from before. No loculated fluid. 2. Decreased gastric wall thickening, now mild. Nasogastric tube has been removed. 3. No obstruction or perceptible acute inflammatory changes seen of the gastrointestinal tract. Juan Mercado MD Physical Exam CONSTITUTIONAL/GENERAL: This is an adequately nourished patient, in no apparent distress. TUBES/LINES/DRAINS: SKIN: No jaundice, rashes, or lesions. . EYES: No scleral icterus. CARDIOVASCULAR: Regular rate and rhythm without murmurs, gallops, or rubs. No JVD. Peripheral pulses symmetric. RESPIRATORY/CHEST: Symmetric, unlabored respirations. Clear to auscultation. Breath sounds equal bilaterally. No wheezes, rales, or rhonchi. GASTROINTESTINAL: Abdomen soft, non-tender, mildly distended. No hepato- splenomegaly, or palpable masses. No guarding. Bowel sounds present. [place] in place -site [place] MUSCULOSKELETAL: Extremities without clubbing, cyanosis, or edema. NEUROLOGICAL: Awake and alert. Non focal PSYCHIATRIC: No obvious anxiety/depression. no apparent hallucinations or other psychotic thought process. Assessment & Plan Remarks FUO - intermittent fever, pt remains clinically well extensive w/u essentially failed to localyze the source; combination of high fever and ESR (>140) is very worrysome for persistent nidus of infx - New low positive TB test (quantiferron); non localizing ? false + - ROBYN negative - HIV neg - CMV, crypto - neg - all clx negative up to date - Procalcitonine high, but pt is in ESRD - diff to interprete - small leukocyutosis as well - [place] CPK RF neg; SPEP cw renal protein loss Leukocytosis, mild - resolved lactic acidosis -- resolved suspected PD related peritonitis, clx negative - neg routine clx @ 48 hrs Poorly controlled DM Immunosuppressed: high dose d sterroids (pt is unaware for what disease and for how long he is taking it "I just take what the doctor tells me"): still unclear the indication for prednisone - Prednisone stopped HCV Elevated lipase, but no abd pain to suggest pancreatitis and no CT changes Hematoemesis, resolved - sp EGD, path P; esophagitits seen, can not explain pt's FUO REC's: fu * WBC study cont cefepime, vanco IP x 1 more week to complete 14 days (thru 03/06) repeat qunatiferon on another specimen OK for placement of Permacath for hemodyalisis with negative Gallium study and last blood clx OK to dc pt home with fu with o/p ID to complete landin for FUO dw pt dw Samantha Villaseñor Alexandra A. MD Jan 30, 2017 19:47
[2017-01-30] MEDS ORDERED: TEMAZEPAM 7.5 MG CAP PO ONE (20:15)
[2017-01-31] VITALS (7 sets, daily range): BP systolic 98–117; BP diastolic 64–81; PULSE 102–112; RESP 18–20; TEMP 98–98.9; O2SAT 100
[2017-01-31] MEDS: CHLORHEXIDINE GLUCONATE 2 % 1 PACK (2 CLOTHS) TOP SCH (01:00)
[2017-01-31] MEDS: INSULIN ASPART SUPPLEMENTAL SCALE SQ SCH ×2 (06:25→16:00)
[2017-01-31 08:45] LABS: BICARBONATE 26.6 MEQ/L (21.0-32.0); POTASSIUM 3.3 MEQ/L (3.5-5.1)
[2017-01-31] MEDS: DOCUSATE SODIUM 50 MG/SENNA 8.6 MG TAB PO SCH ×2 (09:00→20:43)
[2017-01-31] MEDS: INSULIN DETEMIR 100 UNITS/ML VIAL SQ SCH ×2 (09:00→20:41)
[2017-01-31] MEDS: cloNIDine HCL 0.1 MG TAB PO SCH ×3 (09:00→17:39)
[2017-01-31] MEDS: HEPARIN SODIUM - SQ 10,000 UNITS/ML VIAL SQ SCH ×2 (11:27→20:42)
[2017-01-31] MEDS: amLODIPine BESYLATE 5 MG TAB PO SCH ×2 (11:27→20:43)
[2017-01-31] MEDS: METOPROLOL TARTRATE 25 MG TAB PO SCH ×2 (11:27→20:44)
[2017-01-31] MEDS: CALCIUM ACETATE 667 MG CAP PO SCH ×3 (11:27→17:39)
[2017-01-31] MEDS: PANTOPRAZOLE SOD 40 MG DELAYED RELEASE TAB PO SCH (11:27)
[2017-01-31] MEDS: CALCITRIOL 0.25 MCG CAP PO SCH (11:27)
[2017-01-31] MEDS: THIAMINE HCL 100 MG TAB PO SCH (11:27)
[2017-01-31] MEDS: SODIUM CHLORIDE 0.9% FLUSH 10 ML FLUSH SCH ×2 (11:28→20:44)
--- NOTE | 2017-01-31 11:52 | RADRPT ---
EXAM DATE/TIME: 01/29/2017 00:00 [facility] No previous studies available for comparison. INDICATIONS : Fever of unknown origin for two weeks. DOSE: 6.6 mCi Gallium 67 citrate IV PLANAR IMAGIN min, 3 hrs, 24 hrs, 48 hrs SPECT IMAGIN hrs IMAGNG: SPECT/CT imaging with fusion was performed. RADIATION DOSE: 4.04 CTDIvol (mGy) MEDICAL HISTORY : Diabetes mellitus type 2. Hypertension. Hepatitis C. SURGICAL HISTORY : Total knee replacement, left. ENCOUNTER: Initial ACUITY: 2 weeks PAIN SCALE: 0/10 LOCATION: upper quadrant TECHNIQUE: Whole body and SPECT imaging was performed at the specified times after intravenous administration of radiogallium. SPECT imaging was performed in sagittal, axial and coronal planes. Attenuation corre ction was performed with computed tomography and both the attenuation correction and non-attenuated c orrected sets were reviewed. FINDINGS: There is normal biodistribution of the radiotracer. There appears to be some focal tracer accumulatio n in the soft tissues along the anterior right mandible. The bony structures of the mandible are jayden sly intact with no definite bony erosion or destruction. There is focal soft tissue swelling in this location. Otherwise the rest of the examination is unremarkable.. CONCLUSION: Single focal area of accumulation in the soft tissues just anterior to the right mandible. There is f ocal soft tissue swelling in this location. The bony structure of the mandible is grossly unremarkabl e. Joce De Luna MD on January 31, 2017 at 11:46 Board Certified Radiologist. This report was verified electronically.
--- NOTE | 2017-01-31 11:58 | HHI.PR ---
Subjective Remarks f/u; FUO in no acute distress. denies pain or sob. T max 99.8. Objective Vitals Vital Signs Date Time Temp Pulse Resp B/P Pulse Ox O2 Delivery O2 Flow Rate FiO2 01/31/17 10:52 100 21 01/31/17 08:04 98.3 106 18 116/81 100 01/31/17 04:00 98.4 112 20 105/76 100 01/31/17 00:00 Room Air 01/30/17 20:00 110 01/30/17 20:00 98.7 109 20 108/71 100 01/30/17 20:00 Room Air 01/30/17 17:33 97 21 01/30/17 16:00 Room Air 01/30/17 16:00 99.8 97 18 103/65 98 01/30/17 12:00 99.0 99 18 104/69 99 01/30/17 12:00 Room Air I/O 01/30/17 01/30/17 01/30/17 01/31/17 01/31/17 01/31/17 07:00 15:00 23:00 07:00 15:00 23:00 Intake Total 0 ml 602 ml 360 ml 0 ml Output Total 0 ml 1000 ml 0 ml 723 ml Balance 0 ml -398 ml 360 ml 0 ml -723 ml Intake Oral 0 ml 600 ml 360 ml 0 ml IV Total 2 ml Output Urine Total 0 ml 0 ml Peritoneal Fluid 1000 ml 723 ml # Voids 1 0 # Bowel Movements 0 0 0 Result Diagram: 01/31/17 0747 Imaging Last Impressions Upper Extremity Ultrasound 01/29/17 0000 Signed Impressions: Service Date/Time: January 17:57 - CONCLUSION: Negative exam with no evidence of deep venous thrombosis. Saud Kowalski MD Chest CT 01/29/17 0000 Signed Impressions: Service Date/Time: January 16:57 - CONCLUSION: 1. No adenopathy or mediastinal mass to suggest lymphoma. 2. Small left pleural effusion which is a new finding since January 15. No lung consolidation. Mild emphysema. Marcello Disla MD Chest X-Ray 01/23/17 0000 Signed Impressions: Service Date/Time: Monday, January 23, 2017 11:42 - CONCLUSION: 1. No acute abnormality or significant interval change. González Mederos MD Lung Scan-VQ Nuclear Medicine 01/16/17 0000 Signed Impressions: Service Date/Time: Monday, January 16, 2017 15:38 - CONCLUSION: Low probability for pulmonary embolism. Edgardo Goldstein MD FACR Lower Extremity Ultrasound 01/16/17 0000 Signed Impressions: Service Date/Time: Monday, January 16, 2017 08:17 - CONCLUSION: Normal examination. Satinder Khanna Jr., MD Abdomen/Pelvis CT 01/15/17 0000 Signed Impressions: Service Date/Time: January 22:54 - CONCLUSION: 1. Patient is on peritoneal dialysis. There is small moderate ascites, increased from before. No loculated fluid. 2. Decreased gastric wall thickening, now mild. Nasogastric tube has been removed. 3. No obstruction or perceptible acute inflammatory changes seen of the gastrointestinal tract. Juan Mercado MD Objective Remarks GENERAL: This is a well-nourished, well-developed patient, in no apparent distress. CARDIOVASCULAR: Regular rate and regular rhythm without murmurs, gallops, or rubs. RESPIRATORY: Clear to auscultation. Breath sounds equal bilaterally. No wheezes , rales, or rhonchi. GASTROINTESTINAL: Abdomen soft, non-tender, nondistended. Normal, active bowel sounds- peritoneal dialysis access in place. MUSCULOSKELETAL: Extremities without clubbing, cyanosis, or edema. NEURO: Alert & Oriented x4 to person, place, time, situation. Moves all ext x4 Procedures EGD Medications and IVs Current Medications Sodium Chloride (NS 1000 ml Inj) 1,000 ml @ 1,000 mls/hr Q1H IV Last administered on 01/15/17 21:22; Start 01/15/17 at 20:57; Stop 01/15/17 at 21:56; Status DC Insulin Human Regular 10 units 10 units ONCE ONCE SQ Last administered on 21:22; Start 01/15/17 at 21:00; Stop 01/15/17 at 21:01; Status DC Vancomycin HCl 1000 mg/Sodium Chloride 250 ml @ 250 mls/hr ONCE ONCE IV Last administered on 01/15/17 22:43; Start 01/15/17 at 22:30; Stop 01/15/17 at 23:29; Status DC Ampicillin Sodium/ Sulbactam Sodium/ Sodium Chloride (Unasyn Inj/NS Inj) 100 ml @ 200 mls/hr ONCE ONCE IV Last administered on 01/15/17 21:53; Start 01/15/17 at 21:45; Stop 01/15/17 at 22:14; Status DC Acetaminophen 650 mg 650 mg ONCE ONCE PO Last administered on 01/15/17 21:53; Start 01/15/17 at 21:45; Stop 01/15/17 at 21:46; Status DC Sodium Chloride (NS 1000 ml Inj) 1,000 ml @ 1,000 mls/hr Q1H IV Last administered on 01/15/17 22:43; Start 01/15/17 at 22:05; Stop 01/15/17 at 23:04; Status DC Heparin Sodium (Porcine) (Heparin Inj) 1,000 units WITH DIALYSIS PRN XX SEE LABEL COMMENTS; Start 01/15/17 at 22:30 Sodium Chloride (NS Flush) 10 ml UNSCH PRN IV FLUSH SEE LABEL COMMENTS; Start 01/15/17 at 22:30 Vancomycin HCl (Vancomycin Inj) 2,000 mg Q7D IP Last administered on 01/15/17 23:34; Start 01/15/17 at 22:30; Stop 01/16/17 at 10:45; Status DC Ceftazidime (Fortaz Inj) 1,000 mg DAILY IP Last administered on 01/16/17 08:03 ; Start 01/16/17 at 09:00; Stop 01/16/17 at 10:45; Status DC Ceftazidime (Fortaz Inj) 1,000 mg NOW IP Last administered on 01/15/17 23:34; Start 01/15/17 at 23:15; Stop 01/16/17 at 00:45; Status DC Sodium Chloride (NS Flush) 2 ml UNSCH PRN .XX FLUSH AFTER USING IV ACCESS; Start 01/15/17 at 23:30 Sodium Chloride (NS Flush) 2 ml BID .XX Last administered on 01/31/17 11:28; Start 01/16/17 at 09:00 Acetaminophen (Tylenol) 650 mg Q6H PRN PO PAIN 1-10 AND/OR FEVER >101F Last administered on 01/29/17 22:34; Start 01/15/17 at 23:30 Pantoprazole Sodium (Protonix Inj) 40 mg DAILY IV Last administered on 09:35; Start 01/16/17 at 09:00; Stop 01/21/17 at 09:41; Status DC Ondansetron HCl (Zofran Inj) 4 mg Q6H PRN IV NAUSEA OR VOMITING Last administered on 01/22/17 21:40; Start 01/15/17 at 23:30 Albuterol/ Ipratropium (Duoneb Neb) 1 ampule Q6HR NEB INH Last administered on 01/19/17 19:09; Start 01/16/17 at 04:00; Stop 01/20/17 at 04:00; Status DC Albuterol Sulfate (Albuterol Neb) 2.5 mg Q2HR NEB PRN INH SOB/WHEEZING; Start 01/15/17 at 23:30 Miscellaneous Information 1 Q361D XX Last administered on 01/15/17 23:30; Start 01/15/17 at 23:30 Chlorhexidine Gluconate (Chlorhexidine 2% Cloth) Taper DAILY@04 TOP Last administered on 01/18/17 04:00; Start 01/16/17 at 04:00; Stop 01/12/18 at 03:59 Chlorhexidine Gluconate (Chlorhexidine 2% Cloth) 3 pack UNSCH PRN TOP HYGIENIC CARE; Start 01/15/17 at 23:30 Senna/Docusate Sodium (Jessica-Colace) 1 tab BID PO Last administered on 09:17; Start 01/16/17 at 09:00 Magnesium Hydroxide (Milk Of Magnesia Liq) 30 ml Q12H PRN PO MILD - MODERATE CONSTIPATION; Start 01/15/17 at 23:30; Stop 01/25/17 at 08:32; Status DC Sennosides (Senokot) 17.2 mg Q12H PRN PO MODERATE - SEVERE CONSTIPATION; Start 01/15/17 at 23:30 Bisacodyl (Dulcolax Supp) 10 mg DAILY PRN RECTAL SEVERE CONSITIPATION; Start at 23:30 Lactulose (Lactulose Liq) 30 ml DAILY PRN PO SEVERE CONSITIPATION; Start at 23:30 Dextrose (D50w (Vial) Inj) 50 ml UNSCH PRN IV HYPOGLYCEMIA-SEE COMMENTS; Start 01/15/17 at 23:45; Stop 01/19/17 at 11:22; Status DC Glucagon (Glucagon Inj) 1 mg UNSCH PRN OTHER HYPOGLYCEMIA-SEE COMMENTS; Start 01/15/17 at 23:45; Stop 01/19/17 at 11:22; Status DC Insulin Aspart (NovoLOG SUPPLEMENTAL SCALE) 1 Q4H SQ Last administered on 11:45; Start 01/15/17 at 23:45; Stop 01/18/17 at 15:42; Status DC Lactulose (Lactulose Liq) 30 ml ONCE ONCE PO Last administered on 01/16/17 00: 44; Start 01/15/17 at 23:45; Stop 01/15/17 at 23:54; Status DC Amlodipine Besylate (Norvasc) 5 mg BID PO Last administered on 01/31/17 11:27 ; Start 01/16/17 at 09:00 Calcitriol (Rocaltrol) 0.25 mcg DAILY PO Last administered on 01/31/17 11:27; Start 01/16/17 at 09:00 Calcium Acetate (Phoslo) 667 mg TID PO Last administered on 01/31/17 11:27; Start 01/16/17 at 09:00 Clonidine (Catapres) 0.3 mg TID PO Last administered on 01/19/17 17:14; Start 01/16/17 at 09:00; Stop 01/23/17 at 15:24; Status DC Labetalol HCl (Trandate Inj) 10 mg Q4H PRN IV PUSH SBP >170 Last administered on 01/22/17 16:00; Start 01/16/17 at 00:15 Insulin Detemir 5 units 5 units ONCE SQ Last administered on 01/16/17 00:46; Start 01/16/17 at 00:15; Stop 01/16/17 at 02:00; Status DC Ceftazidime/ Sodium Chloride (Fortaz Inj/NS Inj) 100 ml @ 200 mls/hr ONCE ONCE IV Last administered on 01/16/17 03:43; Start 01/16/17 at 04:00; Stop at 04:29; Status DC Clonidine (Catapres) 0.3 mg ONCE ONCE PO Last administered on 01/16/17 04:47; Start 01/16/17 at 04:45; Stop 01/16/17 at 04:46; Status DC Heparin Sodium (Porcine) (Heparin Inj) 5,000 units Q12HR SQ Last administered on 01/31/17 11:27; Start 01/16/17 at 09:00 Acetaminophen/ Hydrocodone Bitart ([place] 5-325 Mg) 1 tab Q6H PRN PO PAIN; Start 01/16/17 at 05:15 Morphine Sulfate (Morphine Inj) 2 mg Q3H PRN IV PUSH BREAKTHROUGH PAIN; Start 01/16/17 at 05:15 Potassium Chloride (KCl) 20 meq Q12HR PO Last administered on 01/20/17 00:29; Start 01/16/17 at 10:45; Status Hold Insulin Aspart (NovoLOG SUPPLEMENTAL SCALE) 1 ACHS SLIDING SCALE SQ Last administered on 01/19/17 06:21; Start 01/18/17 at 16:00; Stop 01/19/17 at 11:08 ; Status DC Insulin Detemir 5 units 5 units Q12HR SQ Last administered on 01/20/17 22:11; Start 01/19/17 at 12:00; Stop 01/21/17 at 09:18; Status DC Cefepime HCl/ Sodium Chloride (Maxipime Inj/NS Inj) 100 ml @ 200 mls/hr ONCE ONCE IV Last administered on 01/19/17 11:47; Start 01/19/17 at 12:00; Stop 07/26 at 12:29; Status DC Dextrose (D50w (Vial) Inj) 50 ml UNSCH PRN IV HYPOGLYCEMIA-SEE COMMENTS; Start 01/19/17 at 11:15 Glucagon (Glucagon Inj) 1 mg UNSCH PRN OTHER HYPOGLYCEMIA-SEE COMMENTS; Start 01/19/17 at 11:15 Insulin Human Regular (NovoLIN R SUPPLEMENTAL SCALE) 1 ACHS SLIDING SCALE SQ ; Start 01/19/17 at 16:00; Stop 01/19/17 at 16:00; Status DC Insulin Human Regular (NovoLIN R SUPPLEMENTAL SCALE) 1 ACHS SLIDING SCALE SQ Last administered on 01/23/17 12:49; Start 01/19/17 at 14:00; Stop 01/23/17 at 15:17; Status DC Thiamine HCl (Vitamin B1) 100 mg ONCE ONCE PO Last administered on 01/19/17 18:11; Start 01/19/17 at 17:45; Stop 01/19/17 at 17:46; Status DC Thiamine HCl 100 mg 100 mg DAILY PO Last administered on 01/31/17 11:27; Start 01/20/17 at 09:00 Sodium Chloride (NS 1000 ml Inj) 1,000 ml @ 100 mls/hr Q10H IV Last administered on 01/26/17 06:00; Start 01/20/17 at 08:15; Stop 01/26/17 at 13:46 ; Status DC Prednisone (Deltasone) 20 mg BID PO Last administered on 01/20/17 09:53; Start 01/20/17 at 09:30; Stop 01/20/17 at 12:34; Status DC Epoetin Felix 43476 units 20,000 units ONCE ONCE SQ Last administered on 14:00; Start 01/20/17 at 12:45; Stop 01/20/17 at 12:46; Status DC Cefepime HCl 1000 mg/Sodium Chloride 100 ml @ 200 mls/hr Q24H IV Last administered on 01/24/17 12:59; Start 01/20/17 at 14:00; Stop 01/25/17 at 09:40 ; Status DC Vancomycin HCl/ Sodium Chloride (Vancomycin Inj/ NS 250 ml Inj) 250 ml @ 250 mls/hr ONCE ONCE IV Last administered on 01/20/17 15:16; Start 01/20/17 at 15 :00; Stop 01/20/17 at 15:59; Status DC Insulin Detemir (Levemir Inj) 5 units HS SQ Last administered on 01/30/17 22: 05; Start 01/21/17 at 21:00 Insulin Detemir (Levemir Inj) 8 units DAILY SQ ; Start 01/22/17 at 09:00; Stop 01/22/17 at 09:00; Status DC Insulin Detemir (Levemir Inj) 7 units DAILY SQ Last administered on 01/31/17 09:00; Start 01/22/17 at 09:00 Pantoprazole Sodium 40 mg 40 mg DAILY PO Last administered on 01/23/17 08:08; Start 01/22/17 at 09:00; Stop 01/23/17 at 15:28; Status DC Lactated Ringer's 1,000 ml @ 30 mls/hr Q24H PRN IV SEE LABEL COMMENTS; Start at 16:15; Stop 01/24/17 at 16:14; Status DC Sodium Chloride (NS 500 ml Inj) 500 ml @ 30 mls/hr [id number] PRN IV SEE LABEL COMMENTS; Start 01/21/17 at 16:15; Stop 01/24/17 at 16:14; Status DC Metoprolol Tartrate (Lopressor) 25 mg [employer]ATE PRN PO SEE LABEL COMMENTS; Start 01/21/17 at 16:15; Stop 01/24/17 at 16:14; Status DC Povidone Iodine (Betadine 5% Antisepsis Kit) 1 applic [employer]ATE PRN EACH NARE SEE LABEL COMMENTS; Start 01/21/17 at 16:15; Stop 01/24/17 at 16:14; Status DC Chlorhexidine Gluconate (Chlorhexidine 2% Cloth) 3 pack [employer] ASS[employer]ATE PRN TOPICAL SEE LABEL COMMENTS; Start 01/21/17 at 16:15; Stop 01/24/17 at 16:14; Status DC Insulin Human Regular (NovoLIN R INJ) See Protocol Table ... S[employer]ETING ASSOCIATE PRN SQ SEE PROTOCOL TABLE; Start 01/21/17 at 16:15; Stop 01/24/17 at 16:14; Status DC Vancomycin HCl (Vancomycin Inj) 2,000 mg Q7D IP Last administered on 01/29/17 18:00; Start 01/22/17 at 16:00 Ceftazidime 1000 mg 1,000 mg DAILY IP Last administered on 01/22/17 16:00; Start 01/22/17 at 16:00; Stop 01/25/17 at 08:32; Status DC Sodium Chloride (NS 1000 ml Inj) 1,000 ml @ 50 mls/hr Q20H IV Last administered on 01/22/17 16:30; Start 01/22/17 at 16:30; Stop 01/22/17 at 21:29 ; Status DC Insulin Aspart (NovoLOG SUPPLEMENTAL SCALE) 1 ACHS SLIDING SCALE SQ Last administered on 01/23/17 21:38; Start 01/23/17 at 16:00; Stop 01/25/17 at 08:32 ; Status DC Clonidine (Catapres) 0.1 mg TID PO Last administered on 01/30/17 08:20; Start 01/23/17 at 18:00 Pantoprazole Sodium 40 mg 40 mg Q12H IV PUSH Last administered on 01/24/17 22: 03; Start 01/23/17 at 21:00; Stop 01/25/17 at 08:32; Status DC Magnesium Sulfate/ Dextrose (Magnesium Sulfate 1 Gm Premix) 100 ml @ 100 mls/ hr ONCE ONCE IV Last administered on 01/24/17 14:43; Start 01/24/17 at 12:45 ; Stop 01/24/17 at 13:44; Status DC Insulin Aspart (NovoLOG SUPPLEMENTAL SCALE) 1 ACHS SLIDING SCALE SQ ; Start at 11:00; Stop 01/30/17 at 11:24; Status DC Pantoprazole Sodium (Protonix) 40 mg DAILY PO Last administered on 01/31/17 11 :27; Start 01/25/17 at 09:00 Propofol (Diprivan 200 Mg/20 ml Inj) 150 mg STK-MED ONCE IV ; Start 01/25/17 at 13:42; Stop 01/25/17 at 14:37; Status DC Ceftazidime (Fortaz Inj) 1,000 mg DAILY@18 IP Last administered on 01/29/17 18 :00; Start 01/25/17 at 18:00; Stop 02/05/17 at 17:59 Epoetin Felix (Epogen Inj) 20,000 units ONCE ONCE SQ Last administered on 17:13; Start 01/26/17 at 16:00; Stop 01/26/17 at 16:01; Status DC Metoprolol Tartrate (Lopressor) 12.5 mg Q12HR PO Last administered on 11:27; Start 01/27/17 at 09:00 Miscellaneous (Pill Splitter) 1 ea UNSCH PRN OTHER SEE LABEL COMMENTS; Start at 09:00 Insulin Aspart 1 1 BIDAC SQ ; Start 01/30/17 at 16:00 Sodium Chloride (NS 1000 ml Inj) 1,000 ml @ 0 mls/hr Q0M PRN IV For Prime & Rinse Back; Start 01/30/17 at 13:20 Heparin Sodium (Porcine) 8000 units 8,000 units UNSCH PRN IVF WITH DIALYSIS; Start 01/30/17 at 13:30 Sodium Chloride 1,000 ml @ 200 mls/hr Q5H PRN IV WITH DIALYSIS; Start 01/30/17 at 13:20 Sodium Chloride (NS 1000 ml Inj) 1,000 ml @ 0 mls/hr Q0M PRN IV WITH DIALYSIS; Start 01/30/17 at 13:20 Mannitol (Mannitol Inj) 12.5 gm UNSCH PRN IV WITH DIALYSIS; Start 01/30/17 at 13:30 Albumin Human (Albumin 25% Inj) 25 gm UNSCH PRN IV WITH DIALYSIS; Start at 13:30 Sodium Chloride (NS Flush) 5 ml UNSCH PRN IV FLUSH WITH DIALYSIS; Start at 13:30 Heparin Sodium (Porcine) (Heparin Inj) UNSCH PRN .XX WITH DIALYSIS; Start at 13:30 Gentamicin Sulfate (Gentamicin (Dialysis) Inj) 20 mg UNSCH PRN IV WITH DIALYSIS ; Start 01/30/17 at 13:30 Ondansetron HCl (Zofran Inj) 4 mg UNSCH PRN IV WITH DIALYSIS; Start 01/30/17 at 13:30 Acetaminophen (Tylenol) 650 mg UNSCH PRN PO for headach, pain, temp > 101F; Start 01/30/17 at 13:30 Diphenhydramine HCl (Benadryl) 25 mg UNSCH PRN PO for hives/itching/anaphylaxis ; Start 01/30/17 at 13:30 Nitroglycerin (Nitrostat Sl) 0.4 mg UNSCH PRN SL CHEST PAIN; Start 01/30/17 at 13:30 Clonidine (Catapres) 0.1 mg UNSCH PRN PO for BP > 180/100 X 2 readings; Start 01/30/17 at 13:30 Epoetin Felix (Epogen Inj) 10,000 units UNSCH PRN IV WITH DIALYSIS; Start at 13:30 Gelatin (Gelfoam 12 Mm/7 Mm Top) 1 foam UNSCH PRN TOP SEE LABEL COMMENTS; Start 01/30/17 at 13:30 Temazepam (Restoril) 7.5 mg ONCE ONCE PO Last administered on 01/30/17t 21:56 ; Start 01/30/17 at 20:15; Stop 01/30/17 at 20:16; Status DC A/P Assessment and Plan A/P FUO-suspected PD related peritonitis Presented with abdominal pain, vomiting and diarrhea. Found to have lactic acidosis. CT abdomen and pelvis noncontrast with normal gallbladder, liver, pancreas. Triglyceride level elevated but not contributory, 290. No prior h/o pancreatitis. There is thickening of stomach noted on CT abd/pelvis [place] post EGD. Peritoneal fluid initially negative for SBP, but repeat sample indicative of SBP. Symptoms resolved. Still with intermittent fevers. Echo revealed evidence of vegetation on the mitral valve. Blood cultures with no growth at this time. Cardiology consult appreciated. ROBYN performed 01/21/17. Negative for endocarditis. - IP Fortaz till 02/04/17 s/p vancomycin. Repeat peritoneal fluid studies ( third time) not indicative of peritonitis. further fever workup so far urine eosinophils(neg), rheumatoid factor(neg), SPEP (no monoclonal protein), ESR(140), CK(low) and lipase(WNL). Follow-up pending gallium scan - repeat panculture negative to date. End-stage renal disease on dialysis. Renal consulted vascular surgery for AVF placement. Patient has been noncompliant with poor technique doing PD Hematemesis One episode 01/23/17. GI consult appreciated. - EGD showed esophagitis and gastritis. Continue PPI. Antireflux mechanisms discussed with the patient. Follow up pathology no fungal organisms. Negative for H. pylori. He has reactive gastropathy and esophagitis - PPI. - Follow CBC and transfuse if hemoglobin is less than 7. Acute respiratory alkalosis/ COPD Alkalosis likely compensatory for metabolic acidosis. Pt was previously on prednisone, unclear if secondary to COPD. He smokes a pack every few days. Breathing is stable at this point. S/p prednisone. - smoking cessation instruction. - oxygen as needed. - encourage ambulation. Hypertension The pt has been hypotensive, now hypertensive. Stable. - resume clonidine at a lower dose and amlodipine. Increase clonidine as needed. -continue to monitor BP. Chronic anemia Likely due to chronic disease. - follow CBC and transfuse as needed. Sinus tachycardia Multifactorial. TSH within normal limits. Improving continue metoprolol . -- telemetry. Diabetes mellitus Poorly controlled. - low dose dose insulin sliding scale. Improving hyperglycemia. Continue Levemir 7 units daily, 5 units HS. Secondary hyperparathyroidism due to renal disease. - Calcitriol 0.25 mg po daily, calcium acetate 667 mg po tid. PPx: Heparin Mac Suggs MD Jan 31, 2017 11:57 Mac Suggs MD Jan 31, 2017 11:57
--- NOTE | 2017-01-31 12:52 | HHI.NPPN ---
Subjective History of Present Illness 61-year-old black male with history of end-stage renal disease, hypertension, new onset of diabetes he was admitted last time with severe hyperglycemia, he was discharge home and he said he did not know how to take insulin and has not taken insulin him back with some abdominal pain, hyperglycemia and received peritoneal dialysis culture has been pending total WBC count was 120 with only 8 % neutrophils. Additional Remarks PD carried out. c/o poor diet as choice is limited Review of Systems General Constitutional: Fever, Fatigue Cardiovascular Cardiac: AGUILAR Objective Data Data 01/30/17 01/31/17 19:00 07:00 Intake Total 602 ml 360 ml Output Total 1000 ml 0 ml Balance -398 ml 360 ml Intake Oral 600 ml 360 ml IV Total 2 ml Output Urine Total 0 ml Peritoneal Fluid 1000 ml # Voids 1 0 # Bowel Movements 0 Vital Signs Date Time Temp Pulse Resp B/P Pulse Ox O2 Delivery O2 Flow Rate FiO2 01/31/17 12:04 98.0 111 18 117/81 100 01/31/17 10:52 100 21 01/31/17 08:04 98.3 106 18 116/81 100 01/31/17 04:00 98.4 112 20 105/76 100 01/31/17 00:00 Room Air 01/30/17 20:00 110 01/30/17 20:00 98.7 109 20 108/71 100 01/30/17 20:00 Room Air 01/30/17 17:33 97 21 01/30/17 16:00 Room Air 01/30/17 16:00 99.8 97 18 103/65 98 -: 01/31/17 0747 Physical Exam General Appearance: Well Nourished, No Acute Distress, Comfortable Eyes Eye Exam: Pupils Equal Throat Throat Exam: Oral Mucosa Odum & Moist Neck Neck Exam: Neck Supple Pulmonary Resp Exam: Breath Sounds Equal, No Distress, Decreased Bases Cardiology CV Exam: Tachycardia Gastrointestinal/Abdomen GI Exam: Soft, Non-Tender, Bowel Sounds Present, Distended (with PD catheter in place.) Extremeties Extremities Exam: Trace Edema Neurologic Neuro Exam: Alert, Awake, Oriented Psychiatric Psych Exam: Appropriate Responses Assessment/Plan Problem List: (1) ESRD (end stage renal disease) Plan: Patient is on peritoneal dialysis, Using 2.5 % dextrose and 1.5%, 1800 ml fill volume, with last fill of 1500 ml of 1.5%, dwell time 6 hours. Last fill contains Fortaz. Cultures have been negative. social issues change diet regular Vascular AVF placement as unsafe to do PD Poor technique, per nurses, fever of unknown origin, appreciate Vascular input may need PD catheter out as a last resort as febrile on and off he is receiving IP Fortaz. repeat culture no evidence of peritonitis fever low grade convert to hemodialysis as unable to discharge and he is not doing it properly PermCath discussed he agrees schedule for Thursday TB test weakly positive PPD in clinic October 29 negative December 04 negative ID can be followed as out patient no obvious source of infection FU with Dr. Lazaro (2) HTN (hypertension) Plan: Continue to monitor (3) Diabetic hyperosmolar non-ketotic state Plan: Blood sugar is acceptable. Problem Qualifiers (1) HTN (hypertension): Qualified Code: I10 - Essential hypertension Ned Sosa MD Jan 31, 2017 12:52
[2017-01-31] MEDS ORDERED: POTASSIUM CHLORIDE 20 MEQ CONTROLLED RELEASE TAB PO ONE (13:00)
--- NOTE | 2017-01-31 14:50 | PD.VS.PN ---
Subjective Subjective/Hospital Course Pt with failing PD and transitioning to HD Pt aware and agrees with change Appartently, on schedule for tunneled catheter Thursday UE vein survey shows no autogenous options. RIGHT handed Objective Vitals/I&O Date Time Temp Pulse Resp B/P Pulse Ox O2 Delivery O2 Flow Rate FiO2 01/31/17 12:04 98.0 111 18 117/81 100 01/31/17 10:52 100 21 01/31/17 08:04 98.3 106 18 116/81 100 01/31/17 04:00 98.4 112 20 105/76 100 01/31/17 00:00 Room Air 01/30/17 20:00 110 01/30/17 20:00 98.7 109 20 108/71 100 01/30/17 20:00 Room Air 01/30/17 17:33 97 21 01/30/17 16:00 Room Air 01/30/17 16:00 99.8 97 18 103/65 98 01/31/17 01/31/17 01/31/17 07:00 15:00 23:00 Intake Total 0 ml Output Total 0 ml 723 ml Balance 0 ml -723 ml Physical Exam No UE swelling or incisions. Laboratory Laboratory Tests Test 01/31/17 07:47 Sodium Level 137 Potassium Level 3.3 Chloride Level 98 Carbon Dioxide Level 26.6 Anion Gap 12 Blood Urea Nitrogen 29 Creatinine 9.27 Estimat Glomerular Filtration 7 Rate Random Glucose 90 Calcium Level 8.2 Date/Time Procedure Status Source Growth 01/28/17 18:03 Aerobic Blood Culture - Preliminary Resulted Blood Peripheral NO GROWTH IN 3 DAYS 01/28/17 18:03 Anaerobic Blood Culture - Preliminary Resulted Blood Peripheral NO GROWTH IN 3 DAYS 01/27/17 17:00 Gram Stain - Final Complete Fluid Peritoneal Fluid 01/27/17 17:00 Body Fluid Culture - Final Complete Fluid Peritoneal Fluid NO GROWTH IN 72 HRS.--AEROBICALLY OR ... Assessment and Plan Plan Failing PD in patient with poor compliance and likely better off with HD. Plan for LEFT arm AVF creation - likely with bovine graft given concern for infection and lack of autologous conduit Discussed plan with the patient and he agrees. Tentatively on for surgery SATURDAY 02/03 Will follow. Thank you very much. Jason Fuentes MD FACS, RPVI principal ios developer [facility] - Heart and Vascular Surgery at [facility] [phone] Jason Fuentes MD Jan 31, 2017 14:50
[2017-01-31] MEDS: TEMAZEPAM 7.5 MG CAP PO PRN (21:58)
[2017-02-01] VITALS (7 sets, daily range): BP systolic 104–113; BP diastolic 58–74; PULSE 97–112; RESP 16–20; TEMP 98.1–98.9; O2SAT 99–100
[2017-02-01] MEDS: CHLORHEXIDINE GLUCONATE 2 % 1 PACK (2 CLOTHS) TOP SCH (04:00)
[2017-02-01] MEDS: INSULIN ASPART SUPPLEMENTAL SCALE SQ SCH ×2 (06:33→16:00)
[2017-02-01] MEDS: cloNIDine HCL 0.1 MG TAB PO SCH ×3 (08:37→17:56)
[2017-02-01] MEDS: THIAMINE HCL 100 MG TAB PO SCH (08:37)
[2017-02-01] MEDS: CALCITRIOL 0.25 MCG CAP PO SCH (08:37)
[2017-02-01] MEDS: PANTOPRAZOLE SOD 40 MG DELAYED RELEASE TAB PO SCH (08:37)
[2017-02-01] MEDS: amLODIPine BESYLATE 5 MG TAB PO SCH ×2 (08:38→20:48)
[2017-02-01] MEDS: CALCIUM ACETATE 667 MG CAP PO SCH ×3 (08:38→17:55)
[2017-02-01] MEDS: METOPROLOL TARTRATE 25 MG TAB PO SCH ×2 (08:38→20:49)
[2017-02-01] MEDS: HEPARIN SODIUM - SQ 10,000 UNITS/ML VIAL SQ SCH ×2 (08:38→20:48)
[2017-02-01] MEDS: SODIUM CHLORIDE 0.9% FLUSH 10 ML FLUSH SCH ×2 (08:39→20:47)
[2017-02-01] MEDS: DOCUSATE SODIUM 50 MG/SENNA 8.6 MG TAB PO SCH ×2 (08:39→20:49)
[2017-02-01] MEDS: INSULIN DETEMIR 100 UNITS/ML VIAL SQ SCH ×2 (08:45→20:48)
--- NOTE | 2017-02-01 11:12 | HHI.PR ---
Subjective Remarks f/u; FUO resting comfortably with no distress. is afebrile. no new complaints. Objective Vitals Vital Signs Date Time Temp Pulse Resp B/P Pulse Ox O2 Delivery O2 Flow Rate FiO2 02/01/17 08:25 98.1 104 16 108/74 99 02/01/17 04:00 98.8 107 18 106/59 99 02/01/17 00:00 98.9 112 18 113/58 99 02/01/17 00:00 Room Air 01/31/17 21:00 Room Air 01/31/17 20:00 107 01/31/17 20:00 98.9 103 18 98/64 100 01/31/17 17:24 102 01/31/17 16:04 98.6 104 18 106/72 100 01/31/17 12:04 98.0 111 18 117/81 100 I/O 01/31/17 01/31/17 01/31/17 02/01/17 02/01/17 02/01/17 07:00 15:00 23:00 07:00 15:00 23:00 Intake Total 0 ml 600 ml 120 ml 120 ml Output Total 0 ml 723 ml 0 ml 50 ml 962 ml Balance 0 ml -123 ml 120 ml 70 ml -962 ml Intake Oral 0 ml 600 ml 120 ml 120 ml Output Urine Total 0 ml 0 ml 50 ml Peritoneal Fluid 723 ml 962 ml # Voids 1 # Bowel Movements 0 2 0 0 Result Diagram: 01/31/17 0747 Imaging Last Impressions Upper Extremity Ultrasound 01/29/17 0000 Signed Impressions: Service Date/Time: January 17:57 - CONCLUSION: Negative exam with no evidence of deep venous thrombosis. Saud Kowalski MD Gallium Scan Nuclear Medicine 01/29/17 0000 Signed Impressions: Service Date/Time: January 00:00 - CONCLUSION: Single focal area of accumulation in the soft tissues just anterior to the right mandible. There is focal soft tissue swelling in this location. The bony structure of the mandible is grossly unremarkable. Joce De Luna MD Chest CT 01/29/17 0000 Signed Impressions: Service Date/Time: January 16:57 - CONCLUSION: 1. No adenopathy or mediastinal mass to suggest lymphoma. 2. Small left pleural effusion which is a new finding since January 15. No lung consolidation. Mild emphysema. Marcello Disla MD Chest X-Ray 01/23/17 0000 Signed Impressions: Service Date/Time: Monday, January 23, 2017 11:42 - CONCLUSION: 1. No acute abnormality or significant interval change. González Mederos MD Lung Scan-VQ Nuclear Medicine 01/16/17 0000 Signed Impressions: Service Date/Time: Monday, January 16, 2017 15:38 - CONCLUSION: Low probability for pulmonary embolism. Edgardo Goldstein MD FACR Lower Extremity Ultrasound 01/16/17 0000 Signed Impressions: Service Date/Time: Monday, January 16, 2017 08:17 - CONCLUSION: Normal examination. Satinder Khanna Jr., MD Abdomen/Pelvis CT 01/15/17 0000 Signed Impressions: Service Date/Time: January 22:54 - CONCLUSION: 1. Patient is on peritoneal dialysis. There is small moderate ascites, increased from before. No loculated fluid. 2. Decreased gastric wall thickening, now mild. Nasogastric tube has been removed. 3. No obstruction or perceptible acute inflammatory changes seen of the gastrointestinal tract. Juan Mercado MD Objective Remarks GENERAL: in no apparent distress. CARDIOVASCULAR: Regular rate and regular rhythm without murmurs, gallops, or rubs. RESPIRATORY: Clear to auscultation. Breath sounds equal bilaterally. No wheezes , rales, or rhonchi. GASTROINTESTINAL: Abdomen soft, non-tender, nondistended. Normal, active bowel sounds- peritoneal dialysis access in place. MUSCULOSKELETAL: Extremities without clubbing, cyanosis, or edema. NEURO: Alert & Oriented x4 to person, place, time, situation. Moves all ext x4 Procedures EGD Medications and IVs Current Medications Sodium Chloride (NS 1000 ml Inj) 1,000 ml @ 1,000 mls/hr Q1H IV Last administered on 01/15/17 21:22; Start 01/15/17 at 20:57; Stop 01/15/17 at 21:56; Status DC Insulin Human Regular 10 units 10 units ONCE ONCE SQ Last administered on 21:22; Start 01/15/17 at 21:00; Stop 01/15/17 at 21:01; Status DC Vancomycin HCl 1000 mg/Sodium Chloride 250 ml @ 250 mls/hr ONCE ONCE IV Last administered on 01/15/17 22:43; Start 01/15/17 at 22:30; Stop 01/15/17 at 23:29; Status DC Ampicillin Sodium/ Sulbactam Sodium/ Sodium Chloride (Unasyn Inj/NS Inj) 100 ml @ 200 mls/hr ONCE ONCE IV Last administered on 01/15/17 21:53; Start 01/15/17 at 21:45; Stop 01/15/17 at 22:14; Status DC Acetaminophen 650 mg 650 mg ONCE ONCE PO Last administered on 01/15/17 21:53; Start 01/15/17 at 21:45; Stop 01/15/17 at 21:46; Status DC Sodium Chloride (NS 1000 ml Inj) 1,000 ml @ 1,000 mls/hr Q1H IV Last administered on 01/15/17 22:43; Start 01/15/17 at 22:05; Stop 01/15/17 at 23:04; Status DC Heparin Sodium (Porcine) (Heparin Inj) 1,000 units WITH DIALYSIS PRN XX SEE LABEL COMMENTS; Start 01/15/17 at 22:30 Sodium Chloride (NS Flush) 10 ml UNSCH PRN IV FLUSH SEE LABEL COMMENTS; Start 01/15/17 at 22:30 Vancomycin HCl (Vancomycin Inj) 2,000 mg Q7D IP Last administered on 01/15/17 23:34; Start 01/15/17 at 22:30; Stop 01/16/17 at 10:45; Status DC Ceftazidime (Fortaz Inj) 1,000 mg DAILY IP Last administered on 01/16/17 08:03 ; Start 01/16/17 at 09:00; Stop 01/16/17 at 10:45; Status DC Ceftazidime (Fortaz Inj) 1,000 mg NOW IP Last administered on 01/15/17 23:34; Start 01/15/17 at 23:15; Stop 01/16/17 at 00:45; Status DC Sodium Chloride (NS Flush) 2 ml UNSCH PRN .XX FLUSH AFTER USING IV ACCESS; Start 01/15/17 at 23:30 Sodium Chloride (NS Flush) 2 ml BID .XX Last administered on 02/01/17 08:39; Start 01/16/17 at 09:00 Acetaminophen (Tylenol) 650 mg Q6H PRN PO PAIN 1-10 AND/OR FEVER >101F Last administered on 01/29/17 22:34; Start 01/15/17 at 23:30 Pantoprazole Sodium (Protonix Inj) 40 mg DAILY IV Last administered on 09:35; Start 01/16/17 at 09:00; Stop 01/21/17 at 09:41; Status DC Ondansetron HCl (Zofran Inj) 4 mg Q6H PRN IV NAUSEA OR VOMITING Last administered on 01/22/17 21:40; Start 01/15/17 at 23:30 Albuterol/ Ipratropium (Duoneb Neb) 1 ampule Q6HR NEB INH Last administered on 01/19/17 19:09; Start 01/16/17 at 04:00; Stop 01/20/17 at 04:00; Status DC Albuterol Sulfate (Albuterol Neb) 2.5 mg Q2HR NEB PRN INH SOB/WHEEZING; Start 01/15/17 at 23:30 Miscellaneous Information 1 Q361D XX Last administered on 01/15/17 23:30; Start 01/15/17 at 23:30 Chlorhexidine Gluconate (Chlorhexidine 2% Cloth) Taper DAILY@04 TOP Last administered on 01/18/17 04:00; Start 01/16/17 at 04:00; Stop 01/12/18 at 03:59 Chlorhexidine Gluconate (Chlorhexidine 2% Cloth) 3 pack UNSCH PRN TOP HYGIENIC CARE; Start 01/15/17 at 23:30 Senna/Docusate Sodium (Jessica-Colace) 1 tab BID PO Last administered on 09:17; Start 01/16/17 at 09:00 Magnesium Hydroxide (Milk Of Magnesia Liq) 30 ml Q12H PRN PO MILD - MODERATE CONSTIPATION; Start 01/15/17 at 23:30; Stop 01/25/17 at 08:32; Status DC Sennosides (Senokot) 17.2 mg Q12H PRN PO MODERATE - SEVERE CONSTIPATION; Start 01/15/17 at 23:30 Bisacodyl (Dulcolax Supp) 10 mg DAILY PRN RECTAL SEVERE CONSITIPATION; Start at 23:30 Lactulose (Lactulose Liq) 30 ml DAILY PRN PO SEVERE CONSITIPATION; Start at 23:30 Dextrose (D50w (Vial) Inj) 50 ml UNSCH PRN IV HYPOGLYCEMIA-SEE COMMENTS; Start 01/15/17 at 23:45; Stop 01/19/17 at 11:22; Status DC Glucagon (Glucagon Inj) 1 mg UNSCH PRN OTHER HYPOGLYCEMIA-SEE COMMENTS; Start 01/15/17 at 23:45; Stop 01/19/17 at 11:22; Status DC Insulin Aspart (NovoLOG SUPPLEMENTAL SCALE) 1 Q4H SQ Last administered on 11:45; Start 01/15/17 at 23:45; Stop 01/18/17 at 15:42; Status DC Lactulose (Lactulose Liq) 30 ml ONCE ONCE PO Last administered on 01/16/17 00: 44; Start 01/15/17 at 23:45; Stop 01/15/17 at 23:54; Status DC Amlodipine Besylate (Norvasc) 5 mg BID PO Last administered on 02/01/17 08:38 ; Start 01/16/17 at 09:00 Calcitriol (Rocaltrol) 0.25 mcg DAILY PO Last administered on 02/01/17 08:37; Start 01/16/17 at 09:00 Calcium Acetate (Phoslo) 667 mg TID PO Last administered on 02/01/17 08:38; Start 01/16/17 at 09:00 Clonidine (Catapres) 0.3 mg TID PO Last administered on 01/19/17 17:14; Start 01/16/17 at 09:00; Stop 01/23/17 at 15:24; Status DC Labetalol HCl (Trandate Inj) 10 mg Q4H PRN IV PUSH SBP >170 Last administered on 01/22/17 16:00; Start 01/16/17 at 00:15 Insulin Detemir 5 units 5 units ONCE SQ Last administered on 01/16/17 00:46; Start 01/16/17 at 00:15; Stop 01/16/17 at 02:00; Status DC Ceftazidime/ Sodium Chloride (Fortaz Inj/NS Inj) 100 ml @ 200 mls/hr ONCE ONCE IV Last administered on 01/16/17 03:43; Start 01/16/17 at 04:00; Stop at 04:29; Status DC Clonidine (Catapres) 0.3 mg ONCE ONCE PO Last administered on 01/16/17 04:47; Start 01/16/17 at 04:45; Stop 01/16/17 at 04:46; Status DC Heparin Sodium (Porcine) (Heparin Inj) 5,000 units Q12HR SQ Last administered on 02/01/17 08:38; Start 01/16/17 at 09:00 Acetaminophen/ Hydrocodone Bitart (Orange 5-325 Mg) 1 tab Q6H PRN PO PAIN; Start 01/16/17 at 05:15 Morphine Sulfate (Morphine Inj) 2 mg Q3H PRN IV PUSH BREAKTHROUGH PAIN; Start 01/16/17 at 05:15 Potassium Chloride (KCl) 20 meq Q12HR PO Last administered on 01/20/17 00:29; Start 01/16/17 at 10:45; Status Hold Insulin Aspart (NovoLOG SUPPLEMENTAL SCALE) 1 ACHS SLIDING SCALE SQ Last administered on 01/19/17 06:21; Start 01/18/17 at 16:00; Stop 01/19/17 at 11:08 ; Status DC Insulin Detemir 5 units 5 units Q12HR SQ Last administered on 01/20/17 22:11; Start 01/19/17 at 12:00; Stop 01/21/17 at 09:18; Status DC Cefepime HCl/ Sodium Chloride (Maxipime Inj/NS Inj) 100 ml @ 200 mls/hr ONCE ONCE IV Last administered on 01/19/17 11:47; Start 01/19/17 at 12:00; Stop 07/26 at 12:29; Status DC Dextrose (D50w (Vial) Inj) 50 ml UNSCH PRN IV HYPOGLYCEMIA-SEE COMMENTS; Start 01/19/17 at 11:15 Glucagon (Glucagon Inj) 1 mg UNSCH PRN OTHER HYPOGLYCEMIA-SEE COMMENTS; Start 01/19/17 at 11:15 Insulin Human Regular (NovoLIN R SUPPLEMENTAL SCALE) 1 ACHS SLIDING SCALE SQ ; Start 01/19/17 at 16:00; Stop 01/19/17 at 16:00; Status DC Insulin Human Regular (NovoLIN R SUPPLEMENTAL SCALE) 1 ACHS SLIDING SCALE SQ Last administered on 01/23/17 12:49; Start 01/19/17 at 14:00; Stop 01/23/17 at 15:17; Status DC Thiamine HCl (Vitamin B1) 100 mg ONCE ONCE PO Last administered on 01/19/17 18:11; Start 01/19/17 at 17:45; Stop 01/19/17 at 17:46; Status DC Thiamine HCl 100 mg 100 mg DAILY PO Last administered on 02/01/17 08:37; Start 01/20/17 at 09:00 Sodium Chloride (NS 1000 ml Inj) 1,000 ml @ 100 mls/hr Q10H IV Last administered on 01/26/17 06:00; Start 01/20/17 at 08:15; Stop 01/26/17 at 13:46 ; Status DC Prednisone (Deltasone) 20 mg BID PO Last administered on 01/20/17 09:53; Start 01/20/17 at 09:30; Stop 01/20/17 at 12:34; Status DC Epoetin Felix 35464 units 20,000 units ONCE ONCE SQ Last administered on 14:00; Start 01/20/17 at 12:45; Stop 01/20/17 at 12:46; Status DC Cefepime HCl 1000 mg/Sodium Chloride 100 ml @ 200 mls/hr Q24H IV Last administered on 01/24/17 12:59; Start 01/20/17 at 14:00; Stop 01/25/17 at 09:40 ; Status DC Vancomycin HCl/ Sodium Chloride (Vancomycin Inj/ NS 250 ml Inj) 250 ml @ 250 mls/hr ONCE ONCE IV Last administered on 01/20/17 15:16; Start 01/20/17 at 15 :00; Stop 01/20/17 at 15:59; Status DC Insulin Detemir (Levemir Inj) 5 units HS SQ Last administered on 01/31/17 20: 41; Start 01/21/17 at 21:00 Insulin Detemir (Levemir Inj) 8 units DAILY SQ ; Start 01/22/17 at 09:00; Stop 01/22/17 at 09:00; Status DC Insulin Detemir (Levemir Inj) 7 units DAILY SQ Last administered on 02/01/17 08:45; Start 01/22/17 at 09:00 Pantoprazole Sodium 40 mg 40 mg DAILY PO Last administered on 01/23/17 08:08; Start 01/22/17 at 09:00; Stop 01/23/17 at 15:28; Status DC Lactated Ringer's 1,000 ml @ 30 mls/hr Q24H PRN IV SEE LABEL COMMENTS; Start at 16:15; Stop 01/24/17 at 16:14; Status DC Sodium Chloride (NS 500 ml Inj) 500 ml @ 30 mls/hr [id number] PRN IV SEE LABEL COMMENTS; Start 01/21/17 at 16:15; Stop 01/24/17 at 16:14; Status DC Metoprolol Tartrate (Lopressor) [address] DRIVER PRN PO SEE LABEL COMMENTS; Start 01/21/17 at 16:15; Stop 01/24/17 at 16:14; Status DC Povidone Iodine (Betadine 5% Antisepsis Kit) [address] DRIVER PRN EACH NARE SEE LABEL COMMENTS; Start 01/21/17 at 16:15; Stop 01/24/17 at 16:14; Status DC Chlorhexidine Gluconate (Chlorhexidine 2% Cloth) [address]IVER PRN TOPICAL SEE LABEL COMMENTS; Start 01/21/17 at 16:15; Stop 01/24/17 at 16:14; Status DC Insulin Human Regular (NovoLIN R INJ) See Protocol Table ... DRIVE AWAY DRIVER PRN SQ SEE PROTOCOL TABLE; Start 01/21/17 at 16:15; Stop 01/24/17 at 16:14; Status DC Vancomycin HCl (Vancomycin Inj) 2,000 mg Q7D IP Last administered on 01/29/17 18:00; Start 01/22/17 at 16:00 Ceftazidime 1000 mg 1,000 mg DAILY IP Last administered on 01/22/17 16:00; Start 01/22/17 at 16:00; Stop 01/25/17 at 08:32; Status DC Sodium Chloride (NS 1000 ml Inj) 1,000 ml @ 50 mls/hr Q20H IV Last administered on 01/22/17 16:30; Start 01/22/17 at 16:30; Stop 01/22/17 at 21:29 ; Status DC Insulin Aspart (NovoLOG SUPPLEMENTAL SCALE) 1 ACHS SLIDING SCALE SQ Last administered on 01/23/17 21:38; Start 01/23/17 at 16:00; Stop 01/25/17 at 08:32 ; Status DC Clonidine (Catapres) 0.1 mg TID PO Last administered on 02/01/17 08:37; Start 01/23/17 at 18:00 Pantoprazole Sodium 40 mg 40 mg Q12H IV PUSH Last administered on 01/24/17 22: 03; Start 01/23/17 at 21:00; Stop 01/25/17 at 08:32; Status DC Magnesium Sulfate/ Dextrose (Magnesium Sulfate 1 Gm Premix) 100 ml @ 100 mls/ hr ONCE ONCE IV Last administered on 01/24/17 14:43; Start 01/24/17 at 12:45 ; Stop 01/24/17 at 13:44; Status DC Insulin Aspart (NovoLOG SUPPLEMENTAL SCALE) 1 ACHS SLIDING SCALE SQ ; Start at 11:00; Stop 01/30/17 at 11:24; Status DC Pantoprazole Sodium (Protonix) 40 mg DAILY PO Last administered on 02/01/17 08 :37; Start 01/25/17 at 09:00 Propofol (Diprivan 200 Mg/20 ml Inj) 150 mg STK-MED ONCE IV ; Start 01/25/17 at 13:42; Stop 01/25/17 at 14:37; Status DC Ceftazidime (Fortaz Inj) 1,000 mg DAILY@18 IP Last administered on 01/31/17 14 :37; Start 01/25/17 at 18:00; Stop 02/05/17 at 17:59 Epoetin Felix (Epogen Inj) 20,000 units ONCE ONCE SQ Last administered on 17:13; Start 01/26/17 at 16:00; Stop 01/26/17 at 16:01; Status DC Metoprolol Tartrate (Lopressor) 12.5 mg Q12HR PO Last administered on 08:38; Start 01/27/17 at 09:00 Miscellaneous (Pill Splitter) 1 ea UNSCH PRN OTHER SEE LABEL COMMENTS; Start at 09:00 Insulin Aspart 1 1 BIDAC SQ ; Start 01/30/17 at 16:00 Sodium Chloride (NS 1000 ml Inj) 1,000 ml @ 0 mls/hr Q0M PRN IV For Prime & Rinse Back; Start 01/30/17 at 13:20 Heparin Sodium (Porcine) 8000 units 8,000 units UNSCH PRN IVF WITH DIALYSIS; Start 01/30/17 at 13:30 Sodium Chloride 1,000 ml @ 200 mls/hr Q5H PRN IV WITH DIALYSIS; Start 01/30/17 at 13:20 Sodium Chloride (NS 1000 ml Inj) 1,000 ml @ 0 mls/hr Q0M PRN IV WITH DIALYSIS; Start 01/30/17 at 13:20 Mannitol (Mannitol Inj) 12.5 gm UNSCH PRN IV WITH DIALYSIS; Start 01/30/17 at 13:30 Albumin Human (Albumin 25% Inj) 25 gm UNSCH PRN IV WITH DIALYSIS; Start at 13:30 Sodium Chloride (NS Flush) 5 ml UNSCH PRN IV FLUSH WITH DIALYSIS; Start at 13:30 Heparin Sodium (Porcine) (Heparin Inj) UNSCH PRN .XX WITH DIALYSIS; Start at 13:30 Gentamicin Sulfate (Gentamicin (Dialysis) Inj) 20 mg UNSCH PRN IV WITH DIALYSIS ; Start 01/30/17 at 13:30 Ondansetron HCl (Zofran Inj) 4 mg UNSCH PRN IV WITH DIALYSIS; Start 01/30/17 at 13:30 Acetaminophen (Tylenol) 650 mg UNSCH PRN PO for headach, pain, temp > 101F; Start 01/30/17 at 13:30 Diphenhydramine HCl (Benadryl) 25 mg UNSCH PRN PO for hives/itching/anaphylaxis ; Start 01/30/17 at 13:30 Nitroglycerin (Nitrostat Sl) 0.4 mg UNSCH PRN SL CHEST PAIN; Start 01/30/17 at 13:30 Clonidine (Catapres) 0.1 mg UNSCH PRN PO for BP > 180/100 X 2 readings; Start 01/30/17 at 13:30 Epoetin Felix (Epogen Inj) 10,000 units UNSCH PRN IV WITH DIALYSIS; Start at 13:30 Gelatin (Gelfoam 12 Mm/7 Mm Top) 1 foam UNSCH PRN TOP SEE LABEL COMMENTS; Start 01/30/17 at 13:30 Temazepam (Restoril) 7.5 mg ONCE ONCE PO Last administered on 01/30/17 21:56 ; Start 01/30/17 at 20:15; Stop 01/30/17 at 20:16; Status DC Potassium Chloride (KCl) 20 meq ONCE ONCE PO Last administered on 01/31/17 13 :59; Start 01/31/17 at 13:00; Stop 01/31/17 at 13:01; Status DC Temazepam (Restoril) 7.5 mg HS PRN PO INSOMNIA Last administered on 01/31/17 21:58; Start 01/31/17 at 14:00 A/P Assessment and Plan A/P FUO-suspected PD related peritonitis Presented with abdominal pain, vomiting and diarrhea. Found to have lactic acidosis. CT abdomen and pelvis noncontrast with normal gallbladder, liver, pancreas. Triglyceride level elevated but not contributory, 290. No prior h/o pancreatitis. There is thickening of stomach noted on CT abd/pelvis Nicole post EGD. Peritoneal fluid initially negative for SBP, but repeat sample indicative of SBP. Symptoms resolved. Echo revealed evidence of vegetation on the mitral valve. however ROBYN performed 01/21/17 and was negative for endocarditis.Blood cultures with no growth at this time. - IP Fortaz till 02/04/17 s/p vancomycin. Repeat peritoneal fluid studies ( third time) not indicative of peritonitis. further fever workup so far urine eosinophils(neg), rheumatoid factor(neg), SPEP (no monoclonal protein), ESR(140), CK(low) and lipase(WNL). gallium scan with : single focal area of accumulation in the soft tissues just anterior to the right mandible with focal soft tissue swelling in this location. The bony structure of the mandible is grossly unremarkable. - repeat panculture negative to date. -ID following. End-stage renal disease on dialysis. Renal consulted vascular surgery for AVF placement. Patient has been noncompliant with poor technique doing PD. for perma-cath placement tomorrow. Hematemesis One episode 01/23/17. GI consult appreciated. - EGD showed esophagitis and gastritis. Continue PPI. Antireflux mechanisms discussed with the patient. Follow up pathology no fungal organisms. Negative for H. pylori. He has reactive gastropathy and esophagitis - PPI. - Follow CBC and transfuse if hemoglobin is less than 7. Acute respiratory alkalosis/ COPD Alkalosis likely compensatory for metabolic acidosis. Pt was previously on prednisone, unclear if secondary to COPD. He smokes a pack every few days. Breathing is stable at this point. S/p prednisone. - smoking cessation instruction. - oxygen as needed. - encourage ambulation. Hypertension The pt has been hypotensive, now hypertensive. Stable. - resume clonidine at a lower dose and amlodipine. Increase clonidine as needed. -continue to monitor BP. Chronic anemia Likely due to chronic disease. - follow CBC and transfuse as needed. Sinus tachycardia Multifactorial. TSH within normal limits. Improving continue metoprolol . -- telemetry. Diabetes mellitus Poorly controlled. - low dose dose insulin sliding scale. Improving hyperglycemia. Continue Levemir 7 units daily, 5 units HS. Secondary hyperparathyroidism due to renal disease. - Calcitriol 0.25 mg po daily, calcium acetate 667 mg po tid. PPx: Heparin Mac Suggs MD Feb 01, 2017 11:12
--- NOTE | 2017-02-01 13:18 | HHI.NPPN ---
Subjective History of Present Illness 61-year-old black male with history of end-stage renal disease, hypertension, new onset of diabetes he was admitted last time with severe hyperglycemia, he was discharge home and he said he did not know how to take insulin and has not taken insulin him back with some abdominal pain, hyperglycemia and received peritoneal dialysis culture has been pending total WBC count was 120 with only 8 % neutrophils. Additional Remarks PD carried out. Review of Systems General Constitutional: Fever, Fatigue Cardiovascular Cardiac: AGUILAR Objective Data Data 01/31/17 02/01/17 19:00 07:00 Intake Total 600 ml 240 ml Output Total 723 ml 50 ml Balance -123 ml 190 ml Intake Oral 600 ml 240 ml Output Urine Total 50 ml Peritoneal Fluid 723 ml # Voids 1 # Bowel Movements 2 0 Vital Signs Date Time Temp Pulse Resp B/P Pulse Ox O2 Delivery O2 Flow Rate FiO2 02/01/17 12:32 98.2 100 16 105/71 99 02/01/17 08:25 98.1 104 16 108/74 99 02/01/17 04:00 98.8 107 18 106/59 99 02/01/17 00:00 98.9 112 18 113/58 99 02/01/17 00:00 Room Air 01/31/17 21:00 Room Air 01/31/17 20:00 107 01/31/17 20:00 98.9 103 18 98/64 100 01/31/17 17:24 102 01/31/17 16:04 98.6 104 18 106/72 100 -: 01/31/17 0747 Physical Exam General Appearance: Well Nourished, No Acute Distress, Comfortable Eyes Eye Exam: Pupils Equal Throat Throat Exam: Oral Mucosa [place] & Moist Neck Neck Exam: Neck Supple Pulmonary Resp Exam: Breath Sounds Equal, No Distress, Decreased Bases Cardiology CV Exam: Tachycardia Gastrointestinal/Abdomen GI Exam: Soft, Non-Tender, Bowel Sounds Present, Distended (with PD catheter in place.) Extremeties Extremities Exam: Trace Edema Neurologic Neuro Exam: Alert, Awake, Oriented Psychiatric Psych Exam: Appropriate Responses Assessment/Plan Problem List: (1) ESRD (end stage renal disease) Plan: Patient is on peritoneal dialysis, Using 2.5 % dextrose and 1.5%, 1800 ml fill volume, with last fill of 1500 ml of 1.5%, dwell time 6 hours. Last fill contains Fortaz. Cultures have been negative. social issues change diet regular Vascular AVF placement as unsafe to do PD Poor technique, per nurses, fever of unknown origin, appreciate Vascular input may need PD catheter out as a last resort as febrile on and off he is receiving IP Fortaz. repeat culture no evidence of peritonitis discussed HD again agreeable to switch convert to hemodialysis as unable to discharge and he is not doing it properly PermCath discussed he agrees schedule for Thursday TB test weakly positive PPD in clinic October 29 negative December 04 negative ID can be followed as out patient no obvious source of infection FU with Dr. Lazaro (2) HTN (hypertension) Plan: Continue to monitor (3) Diabetic hyperosmolar non-ketotic state Plan: Blood sugar is acceptable. Problem Qualifiers (1) HTN (hypertension): Qualified Code: I10 - Essential hypertension Ned Sosa MD Feb 01, 2017 13:18
[2017-02-01] MEDS: TEMAZEPAM 7.5 MG CAP PO PRN (23:47)
[2017-02-02] VITALS (11 sets, daily range): BP systolic 92–123; BP diastolic 58–89; PULSE 83–120; RESP 16–18; TEMP 97.1–98.6; O2SAT 91–100
[2017-02-02] MEDS: CHLORHEXIDINE GLUCONATE 2 % 1 PACK (2 CLOTHS) TOP SCH (04:00)
[2017-02-02] MEDS: INSULIN ASPART SUPPLEMENTAL SCALE SQ SCH ×2 (06:04→16:00)
--- NOTE | 2017-02-02 07:31 | HHI.PR ---
Subjective Remarks f/u; FUO resting comfortably with no distress. remains afebrile. no new complaints. Objective Vitals Vital Signs Date Time Temp Pulse Resp B/P Pulse Ox O2 Delivery O2 Flow Rate FiO2 02/02/17 04:00 Room Air 02/02/17 04:00 97.9 99 18 110/78 100 02/02/17 00:00 Room Air 02/02/17 00:00 98.5 90 18 106/65 100 02/01/17 20:00 98.6 108 20 111/74 100 02/01/17 20:00 Room Air 02/01/17 20:00 108 02/01/17 16:20 98.2 97 18 104/71 99 02/01/17 12:32 98.2 100 16 105/71 99 02/01/17 10:00 104 02/01/17 08:25 98.1 104 16 108/74 99 I/O 02/01/17 02/01/17 02/01/17 02/02/17 02/02/17 02/02/17 07:00 15:00 23:00 07:00 15:00 23:00 Intake Total 120 ml 1080 ml 0 ml Output Total 50 ml 962 ml 200 ml 0 ml Balance 70 ml -962 ml 880 ml 0 ml Intake Oral 120 ml 1080 ml 0 ml Output Urine Total 50 ml 200 ml 0 ml Peritoneal Fluid 962 ml # Bowel Movements 0 1 0 Result Diagram: 01/31/17 0747 Imaging Last Impressions Upper Extremity Ultrasound 01/29/17 0000 Signed Impressions: Service Date/Time: January 17:57 - CONCLUSION: Negative exam with no evidence of deep venous thrombosis. Saud Kowalski MD Gallium Scan Nuclear Medicine 01/29/17 0000 Signed Impressions: Service Date/Time: January 00:00 - CONCLUSION: Single focal area of accumulation in the soft tissues just anterior to the right mandible. There is focal soft tissue swelling in this location. The bony structure of the mandible is grossly unremarkable. Joce De Luna MD Chest CT 01/29/17 0000 Signed Impressions: Service Date/Time: January 16:57 - CONCLUSION: 1. No adenopathy or mediastinal mass to suggest lymphoma. 2. Small left pleural effusion which is a new finding since January 15. No lung consolidation. Mild emphysema. Marcello Disla MD Chest X-Ray 01/23/17 0000 Signed Impressions: Service Date/Time: Monday, January 23, 2017 11:42 - CONCLUSION: 1. No acute abnormality or significant interval change. González Mederos MD Lung Scan-VQ Nuclear Medicine 01/16/17 Signed Impressions: Service Date/Time: Monday, January 16, 2017 15:38 - CONCLUSION: Low probability for pulmonary embolism. Edgardo Goldstein MD FACR Lower Extremity Ultrasound 01/16/17 Signed Impressions: Service Date/Time: Monday, January 16, 2017 08:17 - CONCLUSION: Normal examination. Satinder Khanna Jr., MD Abdomen/Pelvis CT 01/15/17 Signed Impressions: Service Date/Time: January 22:54 - CONCLUSION: 1. Patient is on peritoneal dialysis. There is small moderate ascites, increased from before. No loculated fluid. 2. Decreased gastric wall thickening, now mild. Nasogastric tube has been removed. 3. No obstruction or perceptible acute inflammatory changes seen of the gastrointestinal tract. Juan Mercado MD Objective Remarks GENERAL: in no apparent distress. CARDIOVASCULAR: Regular rate and regular rhythm without murmurs, gallops, or rubs. RESPIRATORY: Clear to auscultation. Breath sounds equal bilaterally. No wheezes , rales, or rhonchi. GASTROINTESTINAL: Abdomen soft, non-tender, nondistended. Normal, active bowel sounds- peritoneal dialysis access in place. MUSCULOSKELETAL: Extremities without clubbing, cyanosis, or edema. NEURO: Alert & Oriented x4 to person, place, time, situation. Moves all ext x4 Procedures EGD Medications and IVs Current Medications Sodium Chloride (NS 1000 ml Inj) 1,000 ml @ 1,000 mls/hr Q1H IV Last administered on 01/15/17 21:22; Start 01/15/17 at 20:57; Stop 01/15/17 at 21:56; Status DC Insulin Human Regular 10 units 10 units ONCE ONCE SQ Last administered on 21:22; Start 01/15/17 at 21:00; Stop 01/15/17 at 21:01; Status DC Vancomycin HCl 1000 mg/Sodium Chloride 250 ml @ 250 mls/hr ONCE ONCE IV Last administered on 01/15/17 22:43; Start 01/15/17 at 22:30; Stop 01/15/17 at 23:29; Status DC Ampicillin Sodium/ Sulbactam Sodium/ Sodium Chloride (Unasyn Inj/NS Inj) 100 ml @ 200 mls/hr ONCE ONCE IV Last administered on 01/15/17 21:53; Start 01/15/17 at 21:45; Stop 01/15/17 at 22:14; Status DC Acetaminophen 650 mg 650 mg ONCE ONCE PO Last administered on 01/15/17 21:53; Start 01/15/17 at 21:45; Stop 01/15/17 at 21:46; Status DC Sodium Chloride (NS 1000 ml Inj) 1,000 ml @ 1,000 mls/hr Q1H IV Last administered on 01/15/17 22:43; Start 01/15/17 at 22:05; Stop 01/15/17 at 23:04; Status DC Heparin Sodium (Porcine) (Heparin Inj) 1,000 units WITH DIALYSIS PRN XX SEE LABEL COMMENTS; Start 01/15/17 at 22:30 Sodium Chloride (NS Flush) 10 ml UNSCH PRN IV FLUSH SEE LABEL COMMENTS; Start 01/15/17 at 22:30 Vancomycin HCl (Vancomycin Inj) 2,000 mg Q7D IP Last administered on 01/15/17 23:34; Start 01/15/17 at 22:30; Stop 01/16/17 at 10:45; Status DC Ceftazidime (Fortaz Inj) 1,000 mg DAILY IP Last administered on 01/16/17 08:03 ; Start 01/16/17 at 09:00; Stop 01/16/17 at 10:45; Status DC Ceftazidime (Fortaz Inj) 1,000 mg NOW IP Last administered on 01/15/17 23:34; Start 01/15/17 at 23:15; Stop 01/16/17 at 00:45; Status DC Sodium Chloride (NS Flush) 2 ml UNSCH PRN .XX FLUSH AFTER USING IV ACCESS; Start 01/15/17 at 23:30 Sodium Chloride (NS Flush) 2 ml BID .XX Last administered on 02/01/17 20:47; Start 01/16/17 at 09:00 Acetaminophen (Tylenol) 650 mg Q6H PRN PO PAIN 1-10 AND/OR FEVER >101F Last administered on 01/29/17 22:34; Start 01/15/17 at 23:30 Pantoprazole Sodium (Protonix Inj) 40 mg DAILY IV Last administered on 09:35; Start 01/16/17 at 09:00; Stop 01/21/17 at 09:41; Status DC Ondansetron HCl (Zofran Inj) 4 mg Q6H PRN IV NAUSEA OR VOMITING Last administered on 01/22/17 21:40; Start 01/15/17 at 23:30 Albuterol/ Ipratropium (Duoneb Neb) 1 ampule Q6HR NEB INH Last administered on 01/19/17 19:09; Start 01/16/17 at 04:00; Stop 01/20/17 at 04:00; Status DC Albuterol Sulfate (Albuterol Neb) 2.5 mg Q2HR NEB PRN INH SOB/WHEEZING; Start 01/15/17 at 23:30 Miscellaneous Information 1 Q361D XX Last administered on 01/15/17 23:30; Start 01/15/17 at 23:30 Chlorhexidine Gluconate (Chlorhexidine 2% Cloth) Taper DAILY@04 TOP Last administered on 01/18/17 04:00; Start 01/16/17 at 04:00; Stop 01/12/18 at 03:59 Chlorhexidine Gluconate (Chlorhexidine 2% Cloth) 3 pack UNSCH PRN TOP HYGIENIC CARE; Start 01/15/17 at 23:30 Senna/Docusate Sodium (Jessica-Colace) 1 tab BID PO Last administered on 09:17; Start 01/16/17 at 09:00 Magnesium Hydroxide (Milk Of Magnesia Liq) 30 ml Q12H PRN PO MILD - MODERATE CONSTIPATION; Start 01/15/17 at 23:30; Stop 01/25/17 at 08:32; Status DC Sennosides (Senokot) 17.2 mg Q12H PRN PO MODERATE - SEVERE CONSTIPATION; Start 01/15/17 at 23:30 Bisacodyl (Dulcolax Supp) 10 mg DAILY PRN RECTAL SEVERE CONSITIPATION; Start at 23:30 Lactulose (Lactulose Liq) 30 ml DAILY PRN PO SEVERE CONSITIPATION; Start at 23:30 Dextrose (D50w (Vial) Inj) 50 ml UNSCH PRN IV HYPOGLYCEMIA-SEE COMMENTS; Start 01/15/17 at 23:45; Stop 01/19/17 at 11:22; Status DC Glucagon (Glucagon Inj) 1 mg UNSCH PRN OTHER HYPOGLYCEMIA-SEE COMMENTS; Start 01/15/17 at 23:45; Stop 01/19/17 at 11:22; Status DC Insulin Aspart (NovoLOG SUPPLEMENTAL SCALE) 1 Q4H SQ Last administered on 11:45; Start 01/15/17 at 23:45; Stop 01/18/17 at 15:42; Status DC Lactulose (Lactulose Liq) 30 ml ONCE ONCE PO Last administered on 01/16/17 00: 44; Start 01/15/17 at 23:45; Stop 01/15/17 at 23:54; Status DC Amlodipine Besylate (Norvasc) 5 mg BID PO Last administered on 02/01/17 20:48 ; Start 01/16/17 at 09:00 Calcitriol (Rocaltrol) 0.25 mcg DAILY PO Last administered on 02/01/17 08:37; Start 01/16/17 at 09:00 Calcium Acetate (Phoslo) 667 mg TID PO Last administered on 02/01/17 17:55; Start 01/16/17 at 09:00 Clonidine (Catapres) 0.3 mg TID PO Last administered on 01/19/17 17:14; Start 01/16/17 at 09:00; Stop 01/23/17 at 15:24; Status DC Labetalol HCl (Trandate Inj) 10 mg Q4H PRN IV PUSH SBP >170 Last administered on 01/22/17 16:00; Start 01/16/17 at 00:15 Insulin Detemir 5 units 5 units ONCE SQ Last administered on 01/16/17 00:46; Start 01/16/17 at 00:15; Stop 01/16/17 at 02:00; Status DC Ceftazidime/ Sodium Chloride (Fortaz Inj/NS Inj) 100 ml @ 200 mls/hr ONCE ONCE IV Last administered on 01/16/17 03:43; Start 01/16/17 at 04:00; Stop at 04:29; Status DC Clonidine (Catapres) 0.3 mg ONCE ONCE PO Last administered on 01/16/17 04:47; Start 01/16/17 at 04:45; Stop 01/16/17 at 04:46; Status DC Heparin Sodium (Porcine) (Heparin Inj) 5,000 units Q12HR SQ Last administered on 02/01/17 08:38; Start 01/16/17 at 09:00 Acetaminophen/ Hydrocodone Bitart ([place] 5-325 Mg) 1 tab Q6H PRN PO PAIN; Start 01/16/17 at 05:15 Morphine Sulfate (Morphine Inj) 2 mg Q3H PRN IV PUSH BREAKTHROUGH PAIN; Start 01/16/17 at 05:15 Potassium Chloride (KCl) 20 meq Q12HR PO Last administered on 01/20/17 00:29; Start 01/16/17 at 10:45; Status Hold Insulin Aspart (NovoLOG SUPPLEMENTAL SCALE) 1 ACHS SLIDING SCALE SQ Last administered on 01/19/17 06:21; Start 01/18/17 at 16:00; Stop 01/19/17 at 11:08 ; Status DC Insulin Detemir 5 units 5 units Q12HR SQ Last administered on 01/20/17 22:11; Start 01/19/17 at 12:00; Stop 01/21/17 at 09:18; Status DC Cefepime HCl/ Sodium Chloride (Maxipime Inj/NS Inj) 100 ml @ 200 mls/hr ONCE ONCE IV Last administered on 01/19/17 11:47; Start 01/19/17 at 12:00; Stop 07/26 at 12:29; Status DC Dextrose (D50w (Vial) Inj) 50 ml UNSCH PRN IV HYPOGLYCEMIA-SEE COMMENTS; Start 01/19/17 at 11:15 Glucagon (Glucagon Inj) 1 mg UNSCH PRN OTHER HYPOGLYCEMIA-SEE COMMENTS; Start 01/19/17 at 11:15 Insulin Human Regular (NovoLIN R SUPPLEMENTAL SCALE) 1 ACHS SLIDING SCALE SQ ; Start 01/19/17 at 16:00; Stop 01/19/17 at 16:00; Status DC Insulin Human Regular (NovoLIN R SUPPLEMENTAL SCALE) 1 ACHS SLIDING SCALE SQ Last administered on 01/23/17 12:49; Start 01/19/17 at 14:00; Stop 01/23/17 at 15:17; Status DC Thiamine HCl (Vitamin B1) 100 mg ONCE ONCE PO Last administered on 01/19/17 18:11; Start 01/19/17 at 17:45; Stop 01/19/17 at 17:46; Status DC Thiamine HCl 100 mg 100 mg DAILY PO Last administered on 02/01/17 08:37; Start 01/20/17 at 09:00 Sodium Chloride (NS 1000 ml Inj) 1,000 ml @ 100 mls/hr Q10H IV Last administered on 01/26/17 06:00; Start 01/20/17 at 08:15; Stop 01/26/17 at 13:46 ; Status DC Prednisone (Deltasone) 20 mg BID PO Last administered on 01/20/17 09:53; Start 01/20/17 at 09:30; Stop 01/20/17 at 12:34; Status DC Epoetin Felix [id number] units 20,000 units ONCE ONCE SQ Last administered on 14:00; Start 01/20/17 at 12:45; Stop 01/20/17 at 12:46; Status DC Cefepime HCl 1000 mg/Sodium Chloride 100 ml @ 200 mls/hr Q24H IV Last administered on 01/24/17 12:59; Start 01/20/17 at 14:00; Stop 01/25/17 at 09:40 ; Status DC Vancomycin HCl/ Sodium Chloride (Vancomycin Inj/ NS 250 ml Inj) 250 ml @ 250 mls/hr ONCE ONCE IV Last administered on 01/20/17 15:16; Start 01/20/17 at 15 :00; Stop 01/20/17 at 15:59; Status DC Insulin Detemir (Levemir Inj) 5 units HS SQ Last administered on 02/01/17 20: 48; Start 01/21/17 at 21:00 Insulin Detemir (Levemir Inj) 8 units DAILY SQ ; Start 01/22/17 at 09:00; Stop 01/22/17 at 09:00; Status DC Insulin Detemir (Levemir Inj) 7 units DAILY SQ Last administered on 02/01/17 08:45; Start 01/22/17 at 09:00 Pantoprazole Sodium 40 mg 40 mg DAILY PO Last administered on 01/23/17 08:08; Start 01/22/17 at 09:00; Stop 01/23/17 at 15:28; Status DC Lactated Ringer's 1,000 ml @ 30 mls/hr Q24H PRN IV SEE LABEL COMMENTS; Start at 16:15; Stop 01/24/17 at 16:14; Status DC Sodium Chloride (NS 500 ml Inj) 500 ml @ 30 mls/hr [id number] PRN IV SEE LABEL COMMENTS; Start 01/21/17 at 16:15; Stop 01/24/17 at 16:14; Status DC Metoprolol Tartrate (Lopressor) 25 mg BILINGUAL CUSTOMER SERVICE SPECIALIST PRN PO SEE LABEL COMMENTS; Start 01/21/17 at 16:15; Stop 01/24/17 at 16:14; Status DC Povidone Iodine (Betadine 5% Antisepsis Kit) 1 applic BILINGUAL CUSTOMER SERVICE SPECIALIST PRN EACH NARE SEE LABEL COMMENTS; Start 01/21/17 at 16:15; Stop 01/24/17 at 16:14; Status DC Chlorhexidine Gluconate (Chlorhexidine 2% Cloth) 3 pack BILINGUAL CUSTOMER SERVICE SPECIALIST PRN TOPICAL SEE LABEL COMMENTS; Start 01/21/17 at 16:15; Stop 01/24/17 at 16:14; Status DC Insulin Human Regular (NovoLIN R INJ) See Protocol Table ... BILINGUAL CUSTOMER SERVICE SPECIALIST PRN SQ SEE PROTOCOL TABLE; Start 01/21/17 at 16:15; Stop 01/24/17 at 16:14; Status DC Vancomycin HCl (Vancomycin Inj) 2,000 mg Q7D IP Last administered on 01/29/17 18:00; Start 01/22/17 at 16:00 Ceftazidime 1000 mg 1,000 mg DAILY IP Last administered on 01/22/17 16:00; Start 01/22/17 at 16:00; Stop 01/25/17 at 08:32; Status DC Sodium Chloride (NS 1000 ml Inj) 1,000 ml @ 50 mls/hr Q20H IV Last administered on 01/22/17 16:30; Start 01/22/17 at 16:30; Stop 01/22/17 at 21:29 ; Status DC Insulin Aspart (NovoLOG SUPPLEMENTAL SCALE) 1 ACHS SLIDING SCALE SQ Last administered on 01/23/17 21:38; Start 01/23/17 at 16:00; Stop 01/25/17 at 08:32 ; Status DC Clonidine (Catapres) 0.1 mg TID PO Last administered on 02/01/17 08:37; Start 01/23/17 at 18:00 Pantoprazole Sodium 40 mg 40 mg Q12H IV PUSH Last administered on 01/24/17 22: 03; Start 01/23/17 at 21:00; Stop 01/25/17 at 08:32; Status DC Magnesium Sulfate/ Dextrose (Magnesium Sulfate 1 Gm Premix) 100 ml @ 100 mls/ hr ONCE ONCE IV Last administered on 01/24/17 14:43; Start 01/24/17 at 12:45 ; Stop 01/24/17 at 13:44; Status DC Insulin Aspart (NovoLOG SUPPLEMENTAL SCALE) 1 ACHS SLIDING SCALE SQ ; Start at 11:00; Stop 01/30/17 at 11:24; Status DC Pantoprazole Sodium (Protonix) 40 mg DAILY PO Last administered on 02/01/17 08 :37; Start 01/25/17 at 09:00 Propofol (Diprivan 200 Mg/20 ml Inj) 150 mg STK-MED ONCE IV ; Start 01/25/17 at 13:42; Stop 01/25/17 at 14:37; Status DC Ceftazidime (Fortaz Inj) 1,000 mg DAILY@18 IP Last administered on 02/01/17 17 :30; Start 01/25/17 at 18:00; Stop 02/05/17 at 17:59 Epoetin Felix (Epogen Inj) 20,000 units ONCE ONCE SQ Last administered on 17:13; Start 01/26/17 at 16:00; Stop 01/26/17 at 16:01; Status DC Metoprolol Tartrate (Lopressor) 12.5 mg Q12HR PO Last administered on 20:49; Start 01/27/17 at 09:00 Miscellaneous (Pill Splitter) 1 ea UNSCH PRN OTHER SEE LABEL COMMENTS; Start at 09:00 Insulin Aspart 1 1 BIDAC SQ ; Start 01/30/17 at 16:00 Sodium Chloride (NS 1000 ml Inj) 1,000 ml @ 0 mls/hr Q0M PRN IV For Prime & Rinse Back; Start 01/30/17 at 13:20 Heparin Sodium (Porcine) 8000 units 8,000 units UNSCH PRN IVF WITH DIALYSIS; Start 01/30/17 at 13:30 Sodium Chloride 1,000 ml @ 200 mls/hr Q5H PRN IV WITH DIALYSIS; Start 01/30/17 at 13:20 Sodium Chloride (NS 1000 ml Inj) 1,000 ml @ 0 mls/hr Q0M PRN IV WITH DIALYSIS; Start 01/30/17 at 13:20 Mannitol (Mannitol Inj) 12.5 gm UNSCH PRN IV WITH DIALYSIS; Start 01/30/17 at 13:30 Albumin Human (Albumin 25% Inj) 25 gm UNSCH PRN IV WITH DIALYSIS; Start at 13:30 Sodium Chloride (NS Flush) 5 ml UNSCH PRN IV FLUSH WITH DIALYSIS; Start at 13:30 Heparin Sodium (Porcine) (Heparin Inj) UNSCH PRN .XX WITH DIALYSIS; Start at 13:30 Gentamicin Sulfate (Gentamicin (Dialysis) Inj) 20 mg UNSCH PRN IV WITH DIALYSIS ; Start 01/30/17 at 13:30 Ondansetron HCl (Zofran Inj) 4 mg UNSCH PRN IV WITH DIALYSIS; Start 01/30/17 at 13:30 Acetaminophen (Tylenol) 650 mg UNSCH PRN PO for headach, pain, temp > 101F; Start 01/30/17 at 13:30 Diphenhydramine HCl (Benadryl) 25 mg UNSCH PRN PO for hives/itching/anaphylaxis ; Start 01/30/17 at 13:30 Nitroglycerin (Nitrostat Sl) 0.4 mg UNSCH PRN SL CHEST PAIN; Start 01/30/17 at 13:30 Clonidine (Catapres) 0.1 mg UNSCH PRN PO for BP > 180/100 X 2 readings; Start 01/30/17 at 13:30 Epoetin Felix (Epogen Inj) 10,000 units UNSCH PRN IV WITH DIALYSIS; Start at 13:30 Gelatin (Gelfoam 12 Mm/7 Mm Top) 1 foam UNSCH PRN TOP SEE LABEL COMMENTS; Start 01/30/17 at 13:30 Temazepam (Restoril) 7.5 mg ONCE ONCE PO Last administered on 01/30/17 21:56 ; Start 01/30/17 at 20:15; Stop 01/30/17 at 20:16; Status DC Potassium Chloride (KCl) 20 meq ONCE ONCE PO Last administered on 01/31/17 13 :59; Start 01/31/17 at 13:00; Stop 01/31/17 at 13:01; Status DC Temazepam (Restoril) 7.5 mg HS PRN PO INSOMNIA Last administered on 02/01/17 23:47; Start 01/31/17 at 14:00 A/P Assessment and Plan A/P FUO-suspected PD related peritonitis Presented with abdominal pain, vomiting and diarrhea. CT abdomen and pelvis noncontrast with normal gallbladder, liver, pancreas. There is thickening of stomach noted on CT abd/pelvis Nicole post EGD. Peritoneal fluid initially negative for SBP, but repeat sample indicative of SBP. Symptoms resolved. Echo revealed evidence of vegetation on the mitral valve. however ROBYN performed 01/21/17 and was negative for endocarditis.Blood cultures with no growth at this time. - IP Fortaz till 02/04/17 s/p vancomycin. Repeat peritoneal fluid studies ( third time) not indicative of peritonitis. further fever workup so far urine eosinophils(neg), rheumatoid factor(neg), SPEP (no monoclonal protein), ESR(140), CK(low) and lipase(WNL). gallium scan with : single focal area of accumulation in the soft tissues just anterior to the right mandible with focal soft tissue swelling in this location. The bony structure of the mandible is grossly unremarkable. - repeat panculture negative to date. -ID following. End-stage renal disease on peritoneal dialysis. will be converted to hemodialysis- since Patient has been noncompliant with poor technique doing PD. Renal consulted vascular surgery for AVF placement. for perma-cath placement today. nephrology following. Hematemesis One episode 01/23/17. GI consult appreciated. - EGD showed esophagitis and gastritis. Continue PPI. Antireflux mechanisms discussed with the patient. Follow up pathology no fungal organisms. Negative for H. pylori. He has reactive gastropathy and esophagitis -continue PPI. Acute respiratory alkalosis/ COPD Alkalosis likely compensatory for metabolic acidosis. Pt was previously on prednisone, unclear if secondary to COPD. He smokes a pack every few days. Breathing is stable at this point. S/p prednisone. - smoking cessation instruction. - oxygen as needed. - encourage ambulation. Hypertension - resumed clonidine at a lower dose and amlodipine. Increase clonidine as needed. -continue to monitor BP. Chronic anemia Likely due to chronic disease. - follow CBC and transfuse as needed. Sinus tachycardia Multifactorial. TSH within normal limits. Improving continue metoprolol . -- telemetry. Diabetes mellitus overall better controlled. - low dose dose insulin sliding scale. Continue Levemir 7 units daily, 5 units HS. Secondary hyperparathyroidism due to renal disease. - Calcitriol 0.25 mg po daily, calcium acetate 667 mg po tid. PPx: Heparin Discharge Planning discharge when cleared by consultants. Mac Suggs MD Feb 02, 2017 07:31
[2017-02-02 08:50] LABS: AUTOMATED NEUTROPHIL # 6.3 TH/MM3 (1.8-7.7); BASOPHIL % 0.3 % (0.0-2.0); EOSINOPHIL # 0.3 TH/MM3 (0-0.4); EOSINOPHIL % 2.7 % (0.0-4.0); HEMATOCRIT 31.6 % (39.0-51.0); LYMPH % 25.9 % (9.0-44.0); LYMPHOCYTE # 2.7 TH/MM3 (1.0-4.8); MEAN CELL VOLUME 90.8 FL (80.0-100.0); MEAN CORPUSCULAR HEMOGLOBIN 29.5 PG (27.0-34.0); MEAN CORPUSCULAR HGB CONC 32.5 % (32.0-36.0); MONO % 9.8 % (0.0-8.0); NEUT % 61.3 % (16.0-70.0); PLATELET COUNT 414 TH/MM3 (150-450); RED BLOOD COUNT 3.48 MIL/MM3 (4.50-5.90); WHITE BLOOD COUNT 10.3 TH/MM3 (4.0-11.0)
[2017-02-02 08:59] LABS: HEMO FLAGS AUTO DIFF
[2017-02-02 09:00] LABS: INTERNATIONAL NORMALIZED RATIO 1.1 RATIO
[2017-02-02] MEDS: DOCUSATE SODIUM 50 MG/SENNA 8.6 MG TAB PO SCH ×2 (09:00→20:37)
[2017-02-02] MEDS: INSULIN DETEMIR 100 UNITS/ML VIAL SQ SCH ×2 (09:00→20:40)
[2017-02-02] MEDS: HEPARIN SODIUM - SQ 10,000 UNITS/ML VIAL SQ SCH ×2 (09:00→20:38)
[2017-02-02] MEDS: CALCIUM ACETATE 667 MG CAP PO SCH ×3 (09:00→17:54)
[2017-02-02] MEDS: THIAMINE HCL 100 MG TAB PO SCH (09:00)
[2017-02-02] MEDS: cloNIDine HCL 0.1 MG TAB PO SCH ×3 (09:00→17:54)
[2017-02-02] MEDS: CALCITRIOL 0.25 MCG CAP PO SCH (09:00)
[2017-02-02] MEDS: amLODIPine BESYLATE 5 MG TAB PO SCH ×2 (09:00→20:37)
[2017-02-02] MEDS: METOPROLOL TARTRATE 25 MG TAB PO SCH ×2 (09:00→20:37)
[2017-02-02] MEDS: SODIUM CHLORIDE 0.9% FLUSH 10 ML FLUSH SCH ×2 (09:00→20:40)
[2017-02-02] MEDS: PANTOPRAZOLE SOD 40 MG DELAYED RELEASE TAB PO SCH (09:00)
[2017-02-02 09:34] LABS: BICARBONATE 25.7 MEQ/L (21.0-32.0); POTASSIUM 3.9 MEQ/L (3.5-5.1)
[2017-02-02 09:49] LABS: POLYCHROMASIA 2.7 % (0.0-1.9)
[2017-02-02 09:50] LABS: OVALOCYTES 1+ (NORMAL); SCAN/DIFF AUTO DIFF CONFIRMED
--- NOTE | 2017-02-02 10:37 | PD.VS.PN ---
Subjective Subjective/Hospital Course Pt with failing PD and transitioning to HD Afebrile Pt in bed this am w/o complaints Pt aware of scheduled Left UE AVF tomorrow Objective Vitals/I&O Date Time Temp Pulse Resp B/P Pulse Ox O2 Delivery O2 Flow Rate FiO2 02/02/17 08:00 97.1 83 18 102/73 99 02/02/17 04:00 Room Air 02/02/17 04:00 97.9 99 18 110/78 100 02/02/17 00:00 Room Air 02/02/17 00:00 98.5 90 18 106/65 100 02/01/17 20:00 98.6 108 20 111/74 100 02/01/17 20:00 Room Air 02/01/17 20:00 108 02/01/17 16:20 98.2 97 18 104/71 99 02/01/17 12:32 98.2 100 16 105/71 99 02/02/17 02/02/17 02/02/17 07:00 15:00 23:00 Intake Total 0 ml Output Total 0 ml 459 ml Balance 0 ml -459 ml Physical Exam GENERAL: A&OX3, NAD, GCS15 SKIN: Warm and dry Pt with equal fresco artist strength Bilat palpable radial pulses 1+ BUE warm with motor intact Laboratory Laboratory Tests Test 02/02/17 08:32 White Blood Count 10.3 Red Blood Count 3.48 Hemoglobin 10.3 Hematocrit 31.6 Mean Corpuscular Volume 90.8 Mean Corpuscular Hemoglobin 29.5 Mean Corpuscular Hemoglobin 32.5 Concent Red Cell Distribution Width 17.0 Platelet Count 414 Mean Platelet Volume 7.8 Neutrophils (%) (Auto) 61.3 Lymphocytes (%) (Auto) 25.9 Monocytes (%) (Auto) 9.8 Eosinophils (%) (Auto) 2.7 Basophils (%) (Auto) 0.3 Neutrophils # (Auto) 6.3 Lymphocytes # (Auto) 2.7 Monocytes # (Auto) 1.0 Eosinophils # (Auto) 0.3 Basophils # (Auto) 0.0 CBC Comment AUTO DIFF Differential Comment AUTO DIFF CONFIRMED Polychromasia 2.7 Ovalocytes 1+ Prothrombin Time 12.0 Prothromb Time International 1.1 Ratio Sodium Level 138 Potassium Level 3.9 Chloride Level 99 Carbon Dioxide Level 25.7 Anion Gap 13 Blood Urea Nitrogen 33 Creatinine 10.84 Estimat Glomerular Filtration 6 Rate Random Glucose 94 Calcium Level 8.7 Date/Time Procedure Status Source Growth 01/28/17 18:03 Aerobic Blood Culture - Preliminary Resulted Blood Peripheral NO GROWTH IN 4 DAYS 01/28/17 18:03 Anaerobic Blood Culture - Preliminary Resulted Blood Peripheral NO GROWTH IN 4 DAYS Assessment and Plan Assessment: (1) ESRD (end stage renal disease) Status: Acute Plan Failing PD in patient with poor compliance and likely better off with HD. Plan LEFT arm AVF creation scheduled for tomorrow (02/03/17) Discussed AVF creation procedure with patient All questions were answered Patient agrees with plan Consent was signed and placed in the chart Sophie BURDEN [facility] [phone] Sophie Kimball Feb 02, 2017 10:37
[2017-02-02] MEDS ORDERED: fentaNYL CITRATE 250 MCG/5 ML AMP ONE (11:36)
[2017-02-02] MEDS ORDERED: MIDAZOLAM HCL 5 MG/5 ML VIAL ONE (11:36)
[2017-02-02] MEDS ORDERED: LIDOCAINE 1%/EPINEPHrine 1:100,000 SOLN 20 ML VIAL ONE (12:00)
--- NOTE | 2017-02-02 12:57 | PD.RAD ---
Post Procedure Progress Note Pre Procedure Diagnosis: (1) CKD (chronic kidney disease) Post Procedure Diagnosis: (1) CKD (chronic kidney disease) Procedure Date: Feb 02, 2017 Supervising Radiologist: González Mederos Proceduralist/Assist: Madeleine Desai, RT(R)(CV), Kaela Haque RT(R) Anesthesia: Conscious Sedation Plan of Activity Patient to Unit: ROPU Patient Condition: Good See PACS Report for procedural detail/treatment González Mederos MD Feb 02, 2017 12:57
[2017-02-02] MEDS ORDERED: HEPARIN SODIUM - IV 2,000 UNITS/2 ML VIAL IV FLUSH PRN (13:00)
[2017-02-02] MEDS ORDERED: SODIUM CHLORIDE 0.9% FLUSH 10 ML FLUSH IVF PRN (13:00)
--- NOTE | 2017-02-02 13:52 | RADRPT ---
EXAM DATE/TIME: 02/02/2017 11:44 [facility] COMPARISON: PERM CV CATH PLCMT W US RIGHT, October 21, 2016, 12:33. INDICATIONS : Patient with end-stage renal disease in need of tunnelled dialysis catheter placement. MEDICAL HISTORY : ESRD, Diabetes, HTN, Hepatitis C, Chronic low back pain, COPD SURGICAL HISTORY : Peritoneal dialysis catheter placement ENCOUNTER: Initial ACUITY: 3 months PAIN SCORE: 0/10 FLUORO TIME: 0.1 minutes IMAGE SERIES: 0 SEDATION TIME: 30 minutes ACCESS: Right internal jugular vein SEDATION: 1.) 3 mg midazolam (Versed) IV 2.) 150 mcg fentanyl (Sublimaze) IV Prophylactic antibiotics were administered with appropriate pre-procedure timing. Vancomycin within 2 hours of procedure, Ancef (or alternative) within 1 hour of procedure. DEVICE: 1. 15 [place] dual lumen 19 cm Abdalla II Plus catheter PROCEDURE : 1. Ultrasound-guided venipuncture. 2. PermaCath placement. 3. Conscious sedation with continuous EKG and oximetry monitoring. The risks, benefits and alternatives to the procedure were explained and verbal and written consent w as obtained. The site was prepped in sterile fashion. Full sterile technique was used, including ca p, mask, sterile gloves and gown and a large sterile sheet. Hand hygiene and 2% chlorhexidine and/or betadine/alcohol prep was utilized per protocol for cutaneous antisepsis. The skin and subcutaneous tissues were infiltrated with local anesthetic solution. With ultrasound and fluoroscopic guidance a dermatotomy was created over the prescribed vein. A micr opuncture set was used to access the targeted vein and serial dilatation was performed to accept the prescribed length catheter. A subcutaneous tunnel was created in a retrograde fashion the catheter w as pulled through the tunnel. The catheter was flushed and assembled and locked with heparin. The c atheter was sutured in place. Conscious sedation was performed with the prescribed dosages and duration as above in the presence of an independent trained radiology nurse to assist in the monitoring of the patient. EKG and oximetry remained stable throughout the procedure. The patient tolerated the procedure well and there were n o complications. The patient was sent to post anesthesia recovery in stable condition. CONCLUSION: Uncomplicated PermaCath placement as above. González Mederos MD on February 02, 2017 at 13:49 Board Certified Radiologist. This report was verified electronically.
--- NOTE | 2017-02-02 13:55 | HHI.NPPN ---
Subjective History of Present Illness 61-year-old black male with history of end-stage renal disease, hypertension, new onset of diabetes he was admitted last time with severe hyperglycemia, he was discharge home and he said he did not know how to take insulin and has not taken insulin him back with some abdominal pain, hyperglycemia and received peritoneal dialysis culture has been pending total WBC count was 120 with only 8 % neutrophils. Additional Remarks PD carried out. Review of Systems General Constitutional: Fever, Fatigue Cardiovascular Cardiac: AGUILAR Objective Data Data 02/01/17 02/02/17 19:00 07:00 Intake Total 840 ml 240 ml Output Total 962 ml 200 ml Balance -122 ml 40 ml Intake Oral 840 ml 240 ml Output Urine Total 200 ml Peritoneal Fluid 962 ml # Bowel Movements 1 Vital Signs Date Time Temp Pulse Resp B/P Pulse Ox O2 Delivery O2 Flow Rate FiO2 02/02/17 13:20 110 18 121/89 91 02/02/17 12:50 108 16 111/74 93 02/02/17 12:35 98.0 115 18 106/75 92 02/02/17 08:00 97.1 83 18 102/73 99 02/02/17 04:00 Room Air 02/02/17 04:00 97.9 99 18 110/78 100 02/02/17 00:00 Room Air 02/02/17 00:00 98.5 90 18 106/65 100 02/01/17 20:00 98.6 108 20 111/74 100 02/01/17 20:00 Room Air 02/01/17 20:00 108 02/01/17 16:20 98.2 97 18 104/71 99 -: 02/02/17 0832 02/02/17 0832 Physical Exam General Appearance: Well Nourished, No Acute Distress, Comfortable Eyes Eye Exam: Pupils Equal Throat Throat Exam: Oral Mucosa [place] & Moist Neck Neck Exam: Neck Supple Pulmonary Resp Exam: Breath Sounds Equal, No Distress, Decreased Bases Cardiology CV Exam: Tachycardia Gastrointestinal/Abdomen GI Exam: Soft, Non-Tender, Bowel Sounds Present, Distended (with PD catheter in place.) Extremeties Extremities Exam: Trace Edema Neurologic Neuro Exam: Alert, Awake, Oriented Psychiatric Psych Exam: Appropriate Responses Assessment/Plan Problem List: (1) ESRD (end stage renal disease) Plan: converted to hemodialysis seen during dialysis 3 L UF as tolerated via P/ C Cultures have been negative. social issues Vascular AVF placement need PD catheter out as febrile on and off and had issues with improper technique possible infection TB test weakly positive PPD in clinic October 29 negative December 04 negative ID can be followed as out patient no obvious source of infection FU with Dr. Lazaro (2) HTN (hypertension) Plan: Continue to monitor (3) Diabetic hyperosmolar non-ketotic state Plan: Blood sugar is acceptable. Problem Qualifiers (1) HTN (hypertension): Qualified Code: I10 - Essential hypertension Ned Sosa MD Feb 02, 2017 13:55
--- NOTE | 2017-02-02 13:56 | HHI.PR ---
Addendum to Inpatient Note Additional Information pt ois off the floor No more fever x 3 days Pt can be discharged after Permacath put in Dc abx Repeat quantiferron needs to be followed Tosha Mitchell MD Feb 02, 2017 13:56
[2017-02-02] MEDS: ONDANSETRON HCL 4 MG/2 ML VIAL IV PRN (15:07)
[2017-02-02] MEDS: EPOETIN ALFA 10,000 UNITS/ML VIAL IV PRN (15:08)
[2017-02-02] MEDS: GENTAMICIN SULFATE (DIALYSIS USE ONLY) 20 MG/2 ML VIAL IV PRN (15:08)
[2017-02-02] MEDS: ACETAMINOPHEN/HYDROcodone 325 MG/5 MG TAB PO PRN (20:37)
[2017-02-02 21:54] LABS: MITOGEN MINUS NIL RESULT >10.00 IU/mL (()); NIL RESULT 0.08 IU/mL (()); QUANTIFERON TB GOLD RESULT Positive (Negative)
[2017-02-03] MEDS: CHLORHEXIDINE GLUCONATE 2 % 1 PACK (2 CLOTHS) TOP SCH (04:00)
[2017-02-03 04:40] VITALS: BP 103/68; PULSE 101; RESP 16; TEMP 98.2; O2SAT 96
[2017-02-03] MEDS: INSULIN ASPART SUPPLEMENTAL SCALE SQ SCH ×2 (06:56→16:00)
[2017-02-03 08:00] VITALS: BP 106/73; PULSE 102; RESP 18; TEMP 98.8; O2SAT 98
[2017-02-03 08:03] VITALS: PULSE 101
[2017-02-03] MEDS: ACETAMINOPHEN/HYDROcodone 325 MG/5 MG TAB PO PRN ×3 (08:05→20:16)
[2017-02-03] MEDS: INSULIN DETEMIR 100 UNITS/ML VIAL SQ SCH ×2 (08:08→20:19)
[2017-02-03] MEDS: THIAMINE HCL 100 MG TAB PO SCH (08:08)
[2017-02-03] MEDS: CALCITRIOL 0.25 MCG CAP PO SCH (08:08)
[2017-02-03] MEDS: HEPARIN SODIUM - SQ 10,000 UNITS/ML VIAL SQ SCH ×2 (08:08→20:17)
[2017-02-03] MEDS: cloNIDine HCL 0.1 MG TAB PO SCH ×4 (08:09→17:16)
[2017-02-03] MEDS: PANTOPRAZOLE SOD 40 MG DELAYED RELEASE TAB PO SCH (08:09)
[2017-02-03] MEDS: CALCIUM ACETATE 667 MG CAP PO SCH ×3 (08:09→17:16)
[2017-02-03] MEDS: METOPROLOL TARTRATE 25 MG TAB PO SCH ×2 (08:09→20:18)
[2017-02-03] MEDS: DOCUSATE SODIUM 50 MG/SENNA 8.6 MG TAB PO SCH ×2 (08:09→20:16)
[2017-02-03] MEDS: SODIUM CHLORIDE 0.9% FLUSH 10 ML FLUSH SCH ×2 (08:10→20:19)
[2017-02-03] MEDS: amLODIPine BESYLATE 5 MG TAB PO SCH ×2 (08:11→20:16)
[2017-02-03 09:36] LABS: AUTOMATED NEUTROPHIL # 5.8 TH/MM3 (1.8-7.7); BASOPHIL # 0.1 TH/MM3 (0-0.2); BASOPHIL % 0.7 % (0.0-2.0); EOSINOPHIL # 0.2 TH/MM3 (0-0.4); EOSINOPHIL % 2.6 % (0.0-4.0); HEMATOCRIT 27.2 % (39.0-51.0); LYMPH % 22.4 % (9.0-44.0); LYMPHOCYTE # 2.1 TH/MM3 (1.0-4.8); MEAN CELL VOLUME 90.8 FL (80.0-100.0); MEAN CORPUSCULAR HEMOGLOBIN 30.2 PG (27.0-34.0); MEAN CORPUSCULAR HGB CONC 33.3 % (32.0-36.0); MONO % 11.3 % (0.0-8.0); PLATELET COUNT 337 TH/MM3 (150-450); RED BLOOD COUNT 2.99 MIL/MM3 (4.50-5.90); WHITE BLOOD COUNT 9.2 TH/MM3 (4.0-11.0)
[2017-02-03 09:41] LABS: HEMO FLAGS AUTO DIFF
[2017-02-03] MEDS ORDERED: BUPIVACAINE HCL PF 0.5% 30 ML VIAL ONE (09:41)
[2017-02-03] MEDS ORDERED: HEPARIN SODIUM - IV 10,000 UNITS/10 ML VIAL ONE (09:41)
[2017-02-03] MEDS ORDERED: THROMBIN (TOPICAL) 20,000 UNIT SPRAY KIT ONE (09:41)
[2017-02-03] MEDS ORDERED: PROTAMINE SULFATE 50 MG/5 ML VIAL ONE (09:41)
[2017-02-03 09:53] LABS: BICARBONATE 32.5 MEQ/L (21.0-32.0); POTASSIUM 4.6 MEQ/L (3.5-5.1)
[2017-02-03] MEDS ORDERED: VANCOMYCIN HCL 1000 MG VIAL ONE (10:11)
[2017-02-03] MEDS ORDERED: VANCOMYCIN HCL 1000 MG VIAL OTHER ONE (10:20)
[2017-02-03 10:53] LABS: SCAN/DIFF AUTO DIFF CONFIRMED
[2017-02-03] MEDS ORDERED: fentaNYL CITRATE 250 MCG/5 ML AMP ONE (11:25)
[2017-02-03] MEDS ORDERED: DO NOT ADM ANY ANTICOAGULANT DRUGS PRN (11:30)
--- NOTE | 2017-02-03 11:32 | HHI.PR ---
Immediate Post Op Note Procedure Date: Feb 03, 2017 Pre Op Diagnosis: ESRD, need for HD access Post Op Diagnosis: ESRD, need for HD access Surgeon: Jason Fuentes Wagon Driver(s): Kimberlyn Mata Procedure: L brachial artery-brachial vein AVF (1st stage) Findings: 4mm vein, 4mm artery Additional Information: + thrill in L UE after anastomosis; + Doppler signal L radial artery Complications: none apparent Specimen(s) removed: none for pathology Estimated blood loss: 20mL Anesthesia: General Drains: None Fluids: 200mL IVF Patient to: PACU Patient Condition: Good Date/Time of Procedure: SEE SURGICAL CARE RECORD Jason Fuentes MD Feb 03, 2017 11:32
[2017-02-03] MEDS ORDERED: NEOSTIGMINE 3 MG/3 ML SYR IV ONE (12:12)
[2017-02-03] MEDS ORDERED: PROPOFOL 200 MG/20 ML AMP IV ONE (12:12)
[2017-02-03] MEDS ORDERED: PHENYLEPH/NS 1000 MCG/10 ML SYR IV ONE (12:12)
[2017-02-03] MEDS ORDERED: ONDANSETRON HCL 4 MG/2 ML VIAL IV PUSH ONE (12:13)
[2017-02-03 12:35] VITALS: BP 119/78; PULSE 104; RESP 20; TEMP 97.7; O2SAT 98
--- NOTE | 2017-02-03 12:41 | HHI.PR ---
Subjective Remarks resting comfortably with no distress. denies pain. no new complaints. Objective Vitals Vital Signs Date Time Temp Pulse Resp B/P Pulse Ox O2 Delivery O2 Flow Rate FiO2 02/03/17 04:40 98.2 101 16 103/68 96 02/03/17 04:00 Room Air 02/03/17 00:00 Room Air 02/02/17 23:22 98.0 101 16 123/71 100 02/02/17 20:15 98.6 113 16 92/68 100 02/02/17 20:00 Room Air 02/02/17 20:00 114 02/02/17 17:00 97.7 120 18 123/58 100 02/02/17 13:20 110 18 121/89 91 02/02/17 12:50 108 16 111/74 93 I/O 02/02/17 02/02/17 02/02/17 02/03/17 02/03/17 02/03/17 07:00 15:00 23:00 07:00 15:00 23:00 Intake Total 0 ml 0 ml 240 ml 0 ml Output Total 0 ml 459 ml 1000 ml 0 ml Balance 0 ml -459 ml -760 ml 0 ml Intake Oral 0 ml 0 ml 240 ml 0 ml Output Urine Total 0 ml 0 ml Peritoneal Fluid 459 ml Hemodialysis 1000 ml # Voids 2 # Bowel Movements 0 1 0 Result Diagram: 02/03/1791802/03/17918 Imaging Last Impressions Catheter Placement X-Ray 02/02/17 0000 Signed Impressions: Service Date/Time: Thursday, February 02, 2017 11:44 - CONCLUSION: Uncomplicated PermaCath placement as above. González Mederos MD Upper Extremity Ultrasound 01/29/17 0000 Signed Impressions: Service Date/Time: January 17:57 - CONCLUSION: Negative exam with no evidence of deep venous thrombosis. Saud Kowalski MD Gallium Scan Nuclear Medicine 01/29/17 0000 Signed Impressions: Service Date/Time: January 00:00 - CONCLUSION: Single focal area of accumulation in the soft tissues just anterior to the right mandible. There is focal soft tissue swelling in this location. The bony structure of the mandible is grossly unremarkable. Joce De Luna MD Chest CT 01/29/17 0000 Signed Impressions: Service Date/Time: January 16:57 - CONCLUSION: 1. No adenopathy or mediastinal mass to suggest lymphoma. 2. Small left pleural effusion which is a new finding since January 15. No lung consolidation. Mild emphysema. Marcello Disla MD Chest X-Ray 01/23/17 0000 Signed Impressions: Service Date/Time: Monday, January 23, 2017 11:42 - CONCLUSION: 1. No acute abnormality or significant interval change. González Mederos MD Lung Scan-VQ Nuclear Medicine 01/16/17 0000 Signed Impressions: Service Date/Time: Monday, January 16, 2017 15:38 - CONCLUSION: Low probability for pulmonary embolism. Edgardo Goldstein MD FACR Lower Extremity Ultrasound 01/16/17 0000 Signed Impressions: Service Date/Time: Monday, January 16, 2017 08:17 - CONCLUSION: Normal examination. Satinder Khanna Jr., MD Abdomen/Pelvis CT 01/15/17 0000 Signed Impressions: Service Date/Time: January 22:54 - CONCLUSION: 1. Patient is on peritoneal dialysis. There is small moderate ascites, increased from before. No loculated fluid. 2. Decreased gastric wall thickening, now mild. Nasogastric tube has been removed. 3. No obstruction or perceptible acute inflammatory changes seen of the gastrointestinal tract. Juan Mercado MD Objective Remarks GENERAL: in no apparent distress. CARDIOVASCULAR: Regular rate and regular rhythm without murmurs, gallops, or rubs. RESPIRATORY: Clear to auscultation. Breath sounds equal bilaterally. No wheezes , rales, or rhonchi. GASTROINTESTINAL: Abdomen soft, non-tender, nondistended. Normal, active bowel sounds- peritoneal dialysis access in place. MUSCULOSKELETAL: Extremities without clubbing, cyanosis, or edema. NEURO: Alert & Oriented x4 to person, place, time, situation. Moves all ext x4 Procedures EGD permacath placement AVF placement Medications and IVs Current Medications Sodium Chloride (NS 1000 ml Inj) 1,000 ml @ 1,000 mls/hr Q1H IV Last administered on 01/15/17t 21:22; Start 01/15/17 at 20:57; Stop 01/15/17 at 21:56; Status DC Insulin Human Regular 10 units 10 units ONCE ONCE SQ Last administered on 21:22; Start 01/15/17 at 21:00; Stop 01/15/17 at 21:01; Status DC Vancomycin HCl 1000 mg/Sodium Chloride 250 ml @ 250 mls/hr ONCE ONCE IV Last administered on 01/15/17 22:43; Start 01/15/17 at 22:30; Stop 01/15/17 at 23:29; Status DC Ampicillin Sodium/ Sulbactam Sodium/ Sodium Chloride (Unasyn Inj/NS Inj) 100 ml @ 200 mls/hr ONCE ONCE IV Last administered on 01/15/17 21:53; Start 01/15/17 at 21:45; Stop 01/15/17 at 22:14; Status DC Acetaminophen 650 mg 650 mg ONCE ONCE PO Last administered on 01/15/17 21:53; Start 01/15/17 at 21:45; Stop 01/15/17 at 21:46; Status DC Sodium Chloride (NS 1000 ml Inj) 1,000 ml @ 1,000 mls/hr Q1H IV Last administered on 01/15/17 22:43; Start 01/15/17 at 22:05; Stop 01/15/17 at 23:04; Status DC Heparin Sodium (Porcine) (Heparin Inj) 1,000 units WITH DIALYSIS PRN XX SEE LABEL COMMENTS; Start 01/15/17 at 22:30 Sodium Chloride (NS Flush) 10 ml UNSCH PRN IV FLUSH SEE LABEL COMMENTS; Start 01/15/17 at 22:30 Vancomycin HCl (Vancomycin Inj) 2,000 mg Q7D IP Last administered on 01/15/17 23:34; Start 01/15/17 at 22:30; Stop 01/16/17 at 10:45; Status DC Ceftazidime (Fortaz Inj) 1,000 mg DAILY IP Last administered on 01/16/17 08:03 ; Start 01/16/17 at 09:00; Stop 01/16/17 at 10:45; Status DC Ceftazidime (Fortaz Inj) 1,000 mg NOW IP Last administered on 01/15/17 23:34; Start 01/15/17 at 23:15; Stop 01/16/17 at 00:45; Status DC Sodium Chloride (NS Flush) 2 ml UNSCH PRN .XX FLUSH AFTER USING IV ACCESS; Start 01/15/17 at 23:30 Sodium Chloride (NS Flush) 2 ml BID .XX Last administered on 02/03/17 08:10; Start 01/16/17 at 09:00 Acetaminophen (Tylenol) 650 mg Q6H PRN PO PAIN 1-10 AND/OR FEVER >101F Last administered on 01/29/17 22:34; Start 01/15/17 at 23:30 Pantoprazole Sodium (Protonix Inj) 40 mg DAILY IV Last administered on 09:35; Start 01/16/17 at 09:00; Stop 01/21/17 at 09:41; Status DC Ondansetron HCl (Zofran Inj) 4 mg Q6H PRN IV NAUSEA OR VOMITING Last administered on 02/02/17 15:07; Start 01/15/17 at 23:30 Albuterol/ Ipratropium (Duoneb Neb) 1 ampule Q6HR NEB INH Last administered on 01/19/17 19:09; Start 01/16/17 at 04:00; Stop 01/20/17 at 04:00; Status DC Albuterol Sulfate (Albuterol Neb) 2.5 mg Q2HR NEB PRN INH SOB/WHEEZING; Start 01/15/17 at 23:30 Miscellaneous Information 1 Q361D XX Last administered on 01/15/17 23:30; Start 01/15/17 at 23:30 Chlorhexidine Gluconate (Chlorhexidine 2% Cloth) Taper DAILY@04 TOP Last administered on 01/18/17 04:00; Start 01/16/17 at 04:00; Stop 01/12/18 at 03:59 Chlorhexidine Gluconate (Chlorhexidine 2% Cloth) 3 pack UNSCH PRN TOP HYGIENIC CARE; Start 01/15/17 at 23:30 Senna/Docusate Sodium (Jessica-Colace) 1 tab BID PO Last administered on 20:37; Start 01/16/17 at 09:00 Magnesium Hydroxide (Milk Of Magnesia Liq) 30 ml Q12H PRN PO MILD - MODERATE CONSTIPATION; Start 01/15/17 at 23:30; Stop 01/25/17 at 08:32; Status DC Sennosides (Senokot) 17.2 mg Q12H PRN PO MODERATE - SEVERE CONSTIPATION; Start 01/15/17 at 23:30 Bisacodyl (Dulcolax Supp) 10 mg DAILY PRN RECTAL SEVERE CONSITIPATION; Start at 23:30 Lactulose (Lactulose Liq) 30 ml DAILY PRN PO SEVERE CONSITIPATION; Start at 23:30 Dextrose (D50w (Vial) Inj) 50 ml UNSCH PRN IV HYPOGLYCEMIA-SEE COMMENTS; Start 01/15/17 at 23:45; Stop 01/19/17 at 11:22; Status DC Glucagon (Glucagon Inj) 1 mg UNSCH PRN OTHER HYPOGLYCEMIA-SEE COMMENTS; Start 01/15/17 at 23:45; Stop 01/19/17 at 11:22; Status DC Insulin Aspart (NovoLOG SUPPLEMENTAL SCALE) 1 Q4H SQ Last administered on 11:45; Start 01/15/17 at 23:45; Stop 01/18/17 at 15:42; Status DC Lactulose (Lactulose Liq) 30 ml ONCE ONCE PO Last administered on 01/16/17 00: 44; Start 01/15/17 at 23:45; Stop 01/15/17 at 23:54; Status DC Amlodipine Besylate (Norvasc) 5 mg BID PO Last administered on 02/02/17 20:37 ; Start 01/16/17 at 09:00 Calcitriol (Rocaltrol) 0.25 mcg DAILY PO Last administered on 02/01/17 08:37; Start 01/16/17 at 09:00 Calcium Acetate (Phoslo) 667 mg TID PO Last administered on 02/02/17 17:54; Start 01/16/17 at 09:00 Clonidine (Catapres) 0.3 mg TID PO Last administered on 01/19/17 17:14; Start 01/16/17 at 09:00; Stop 01/23/17 at 15:24; Status DC Labetalol HCl (Trandate Inj) 10 mg Q4H PRN IV PUSH SBP >170 Last administered on 01/22/17 16:00; Start 01/16/17 at 00:15 Insulin Detemir 5 units 5 units ONCE SQ Last administered on 01/16/17 00:46; Start 01/16/17 at 00:15; Stop 01/16/17 at 02:00; Status DC Ceftazidime/ Sodium Chloride (Fortaz Inj/NS Inj) 100 ml @ 200 mls/hr ONCE ONCE IV Last administered on 01/16/17 03:43; Start 01/16/17 at 04:00; Stop at 04:29; Status DC Clonidine (Catapres) 0.3 mg ONCE ONCE PO Last administered on 01/16/17 04:47; Start 01/16/17 at 04:45; Stop 01/16/17 at 04:46; Status DC Heparin Sodium (Porcine) (Heparin Inj) 5,000 units Q12HR SQ Last administered on 02/02/17 20:38; Start 01/16/17 at 09:00 Acetaminophen/ Hydrocodone Bitart ([place] 5-325 Mg) 1 tab Q6H PRN PO PAIN Last administered on 02/03/17 08:05; Start 01/16/17 at 05:15 Morphine Sulfate (Morphine Inj) 2 mg Q3H PRN IV PUSH BREAKTHROUGH PAIN; Start 01/16/17 at 05:15 Potassium Chloride (KCl) 20 meq Q12HR PO Last administered on 01/20/17 00:29; Start 01/16/17 at 10:45; Status Hold Insulin Aspart (NovoLOG SUPPLEMENTAL SCALE) 1 ACHS SLIDING SCALE SQ Last administered on 01/19/17 06:21; Start 01/18/17 at 16:00; Stop 01/19/17 at 11:08 ; Status DC Insulin Detemir 5 units 5 units Q12HR SQ Last administered on 01/20/17 22:11; Start 01/19/17 at 12:00; Stop 01/21/17 at 09:18; Status DC Cefepime HCl/ Sodium Chloride (Maxipime Inj/NS Inj) 100 ml @ 200 mls/hr ONCE ONCE IV Last administered on 01/19/17 11:47; Start 01/19/17 at 12:00; Stop 07/26 at 12:29; Status DC Dextrose (D50w (Vial) Inj) 50 ml UNSCH PRN IV HYPOGLYCEMIA-SEE COMMENTS; Start 01/19/17 at 11:15 Glucagon (Glucagon Inj) 1 mg UNSCH PRN OTHER HYPOGLYCEMIA-SEE COMMENTS; Start 01/19/17 at 11:15 Insulin Human Regular (NovoLIN R SUPPLEMENTAL SCALE) 1 ACHS SLIDING SCALE SQ ; Start 01/19/17 at 16:00; Stop 01/19/17 at 16:00; Status DC Insulin Human Regular (NovoLIN R SUPPLEMENTAL SCALE) 1 ACHS SLIDING SCALE SQ Last administered on 01/23/17 12:49; Start 01/19/17 at 14:00; Stop 01/23/17 at 15:17; Status DC Thiamine HCl (Vitamin B1) 100 mg ONCE ONCE PO Last administered on 01/19/17 18:11; Start 01/19/17 at 17:45; Stop 01/19/17 at 17:46; Status DC Thiamine HCl 100 mg 100 mg DAILY PO Last administered on 02/01/17 08:37; Start 01/20/17 at 09:00 Sodium Chloride (NS 1000 ml Inj) 1,000 ml @ 100 mls/hr Q10H IV Last administered on 01/26/17 06:00; Start 01/20/17 at 08:15; Stop 01/26/17 at 13:46 ; Status DC Prednisone (Deltasone) 20 mg BID PO Last administered on 01/20/17 09:53; Start 01/20/17 at 09:30; Stop 01/20/17 at 12:34; Status DC Epoetin Felix 51981 units 20,000 units ONCE ONCE SQ Last administered on 14:00; Start 01/20/17 at 12:45; Stop 01/20/17 at 12:46; Status DC Cefepime HCl 1000 mg/Sodium Chloride 100 ml @ 200 mls/hr Q24H IV Last administered on 01/24/17 12:59; Start 01/20/17 at 14:00; Stop 01/25/17 at 09:40 ; Status DC Vancomycin HCl/ Sodium Chloride (Vancomycin Inj/ NS 250 ml Inj) 250 ml @ 250 mls/hr ONCE ONCE IV Last administered on 01/20/17 15:16; Start 01/20/17 at 15 :00; Stop 01/20/17 at 15:59; Status DC Insulin Detemir (Levemir Inj) 5 units HS SQ Last administered on 02/01/17 20: 48; Start 01/21/17 at 21:00 Insulin Detemir (Levemir Inj) 8 units DAILY SQ ; Start 01/22/17 at 09:00; Stop 01/22/17 at 09:00; Status DC Insulin Detemir (Levemir Inj) 7 units DAILY SQ Last administered on 02/01/17 08:45; Start 01/22/17 at 09:00 Pantoprazole Sodium 40 mg 40 mg DAILY PO Last administered on 01/23/17 08:08; Start 01/22/17 at 09:00; Stop 01/23/17 at 15:28; Status DC Lactated Ringer's 1,000 ml @ 30 mls/hr Q24H PRN IV SEE LABEL COMMENTS; Start at 16:15; Stop 01/24/17 at 16:14; Status DC Sodium Chloride (NS 500 ml Inj) 500 ml @ 30 mls/hr [id number] PRN IV SEE LABEL COMMENTS; Start 01/21/17 at 16:15; Stop 01/24/17 at 16:14; Status DC Metoprolol Tartrate (Lopressor) 25 mg BOAT OUTFITTER PRN PO SEE LABEL COMMENTS; Start 01/21/17 at 16:15; Stop 01/24/17 at 16:14; Status DC Povidone Iodine (Betadine 5% Antisepsis Kit) 1 applic BOAT OUTFITTER PRN EACH NARE SEE LABEL COMMENTS; Start 01/21/17 at 16:15; Stop 01/24/17 at 16:14; Status DC Chlorhexidine Gluconate (Chlorhexidine 2% Cloth) 3 pack BOAT OUTFITTER PRN TOPICAL SEE LABEL COMMENTS; Start 01/21/17 at 16:15; Stop 01/24/17 at 16:14; Status DC Insulin Human Regular (NovoLIN R INJ) See Protocol Table ... BOAT OUTFITTER PRN SQ SEE PROTOCOL TABLE; Start 01/21/17 at 16:15; Stop 01/24/17 at 16:14; Status DC Vancomycin HCl (Vancomycin Inj) 2,000 mg Q7D IP Last administered on 01/29/17 18:00; Start 01/22/17 at 16:00; Stop 02/02/17 at 14:01; Status DC Ceftazidime 1000 mg 1,000 mg DAILY IP Last administered on 01/22/17 16:00; Start 01/22/17 at 16:00; Stop 01/25/17 at 08:32; Status DC Sodium Chloride (NS 1000 ml Inj) 1,000 ml @ 50 mls/hr Q20H IV Last administered on 01/22/17 16:30; Start 01/22/17 at 16:30; Stop 01/22/17 at 21:29 ; Status DC Insulin Aspart (NovoLOG SUPPLEMENTAL SCALE) 1 ACHS SLIDING SCALE SQ Last administered on 01/23/17 21:38; Start 01/23/17 at 16:00; Stop 01/25/17 at 08:32 ; Status DC Clonidine (Catapres) 0.1 mg TID PO Last administered on 02/02/17 17:54; Start 01/23/17 at 18:00 Pantoprazole Sodium 40 mg 40 mg Q12H IV PUSH Last administered on 01/24/17 22: 03; Start 01/23/17 at 21:00; Stop 01/25/17 at 08:32; Status DC Magnesium Sulfate/ Dextrose (Magnesium Sulfate 1 Gm Premix) 100 ml @ 100 mls/ hr ONCE ONCE IV Last administered on 01/24/17 14:43; Start 01/24/17 at 12:45 ; Stop 01/24/17 at 13:44; Status DC Insulin Aspart (NovoLOG SUPPLEMENTAL SCALE) 1 ACHS SLIDING SCALE SQ ; Start at 11:00; Stop 01/30/17 at 11:24; Status DC Pantoprazole Sodium (Protonix) 40 mg DAILY PO Last administered on 02/01/17 08 :37; Start 01/25/17 at 09:00 Propofol (Diprivan 200 Mg/20 ml Inj) 150 mg STK-MED ONCE IV ; Start 01/25/17 at 13:42; Stop 01/25/17 at 14:37; Status DC Ceftazidime (Fortaz Inj) 1,000 mg DAILY@18 IP Last administered on 02/01/17 17 :30; Start 01/25/17 at 18:00; Stop 02/05/17 at 17:59 Epoetin Felix (Epogen Inj) 20,000 units ONCE ONCE SQ Last administered on 17:13; Start 01/26/17 at 16:00; Stop 01/26/17 at 16:01; Status DC Metoprolol Tartrate (Lopressor) 12.5 mg Q12HR PO Last administered on 20:37; Start 01/27/17 at 09:00 Miscellaneous (Pill Splitter) 1 ea UNSCH PRN OTHER SEE LABEL COMMENTS; Start at 09:00 Insulin Aspart 1 1 BIDAC SQ ; Start 01/30/17 at 16:00 Sodium Chloride (NS 1000 ml Inj) 1,000 ml @ 0 mls/hr Q0M PRN IV For Prime & Rinse Back; Start 01/30/17 at 13:20 Heparin Sodium (Porcine) 8000 units 8,000 units UNSCH PRN IVF WITH DIALYSIS; Start 01/30/17 at 13:30 Sodium Chloride 1,000 ml @ 200 mls/hr Q5H PRN IV WITH DIALYSIS Last administered on 02/02/17 15:07; Start 01/30/17 at 13:20 Sodium Chloride (NS 1000 ml Inj) 1,000 ml @ 0 mls/hr Q0M PRN IV WITH DIALYSIS; Start 01/30/17 at 13:20 Mannitol (Mannitol Inj) 12.5 gm UNSCH PRN IV WITH DIALYSIS; Start 01/30/17 at 13:30 Albumin Human (Albumin 25% Inj) 25 gm UNSCH PRN IV WITH DIALYSIS; Start at 13:30 Sodium Chloride (NS Flush) 5 ml UNSCH PRN IV FLUSH WITH DIALYSIS; Start at 13:30 Heparin Sodium (Porcine) (Heparin Inj) UNSCH PRN .XX WITH DIALYSIS; Start at 13:30 Gentamicin Sulfate (Gentamicin (Dialysis) Inj) 20 mg UNSCH PRN IV WITH DIALYSIS Last administered on 02/02/17 15:08; Start 01/30/17 at 13:30 Ondansetron HCl (Zofran Inj) 4 mg UNSCH PRN IV WITH DIALYSIS; Start 01/30/17 at 13:30 Acetaminophen (Tylenol) 650 mg UNSCH PRN PO for headach, pain, temp > 101F; Start 01/30/17 at 13:30 Diphenhydramine HCl (Benadryl) 25 mg UNSCH PRN PO for hives/itching/anaphylaxis ; Start 01/30/17 at 13:30 Nitroglycerin (Nitrostat Sl) 0.4 mg UNSCH PRN SL CHEST PAIN; Start 01/30/17 at 13:30 Clonidine (Catapres) 0.1 mg UNSCH PRN PO for BP > 180/100 X 2 readings; Start 01/30/17 at 13:30 Epoetin Felix (Epogen Inj) 10,000 units UNSCH PRN IV WITH DIALYSIS Last administered on 02/02/17 15:08; Start 01/30/17 at 13:30 Gelatin (Gelfoam 12 Mm/7 Mm Top) 1 foam UNSCH PRN TOP SEE LABEL COMMENTS; Start 01/30/17 at 13:30 Temazepam (Restoril) 7.5 mg ONCE ONCE PO Last administered on 01/30/17 21:56 ; Start 01/30/17 at 20:15; Stop 01/30/17 at 20:16; Status DC Potassium Chloride (KCl) 20 meq ONCE ONCE PO Last administered on 01/31/17 13 :59; Start 01/31/17 at 13:00; Stop 01/31/17 at 13:01; Status DC Temazepam (Restoril) 7.5 mg HS PRN PO INSOMNIA Last administered on 02/01/17 23:47; Start 01/31/17 at 14:00 Midazolam HCl (Versed Inj) 5 mg STK-MED ONCE .ROUTE Last administered on 11:36; Start 02/02/17 at 11:36; Stop 02/02/17 at 11:37; Status DC Fentanyl Citrate (fentaNYL INJ) 250 mcg STK-MED ONCE .ROUTE Last administered on 02/02/17 11:36; Start 02/02/17 at 11:36; Stop 02/02/17 at 11:37; Status DC Heparin Sodium (Porcine) (*HEPARIN INJ Periprocedural ONLY) 10,000 units STK- MED ONCE .ROUTE Last administered on 02/02/17 12:25; Start 02/02/17 at 12:00; Stop 02/02/17 at 12:01; Status DC Lidocaine/ Epinephrine (Xylocaine-Epi 1%-1:100,000 Inj) 20 ml STK-MED ONCE .ROUTE Last administered on 02/02/17 12:13; Start 02/02/17 at 12:00; Stop at 12:01; Status DC Sodium Chloride (NS Flush) UNSCH PRN IVF SEE PROTOCOL; Start 02/02/17 at 13:00 Heparin Sodium (Porcine) (Heparin Inj) UNSCH PRN IV FLUSH SEE PROTOCOL; Start 02/02/17 at 13:00 Heparin Sodium (Porcine) (Heparin Inj) 20,000 units STK-MED ONCE .ROUTE ; Start 02/03/17 at 09:41; Stop 02/03/17 at 09:42; Status DC Bupivacaine HCl (Marcaine Pf 0.5% Inj) 30 ml STK-MED ONCE .ROUTE Last administered on 02/03/17t 10:30; Start 02/03/17 at 09:41; Stop 02/03/17 at 09:42 ; Status DC Thrombin (Thrombin [place]) 20,000 units STK-MED ONCE .ROUTE ; Start 02/03/17 at 09:41; Stop 02/03/17 at 09:42; Status DC Protamine Sulfate (Protamine Sulfate Inj) 50 mg STK-MED ONCE .ROUTE ; Start at 09:41; Stop 02/03/17 at 09:42; Status DC Vancomycin HCl (Vancomycin Inj) 1,000 mg STK-MED ONCE .ROUTE ; Start 02/03/17 at 10:11; Stop 02/03/17 at 10:12; Status DC Fentanyl Citrate (fentaNYL INJ) 250 mcg STK-MED ONCE .ROUTE ; Start 02/03/17 at 11:25; Stop 02/03/17 at 11:26; Status DC Vancomycin HCl (Vancomycin Inj) 1,000 mg STK-MED ONCE OTHER Last administered on 02/03/17t 10:20; Start 02/03/17 at 10:20; Stop 02/03/17 at 11:29; Status DC A/P Assessment and Plan A/P FUO-suspected PD related peritonitis- now with no recurrent fever. Presented with abdominal pain, vomiting and diarrhea- which has resolved. CT abdomen and pelvis noncontrast with normal gallbladder, liver, pancreas. There is thickening of stomach noted on CT abd/pelvis Nicole post EGD. Peritoneal fluid initially negative for SBP, but repeat sample indicative of SBP. Symptoms resolved. Echo revealed evidence of vegetation on the mitral valve. however ROBYN performed 01/21/17 and was negative for endocarditis.Blood cultures with no growth at this time. IP Fortaz till 02/04/17 s/p vancomycin. Repeat peritoneal fluid studies ( third time) not indicative of peritonitis. further fever workup so far urine eosinophils(neg), rheumatoid factor(neg), SPEP (no monoclonal protein), ESR(140), CK(low) and lipase(WNL). gallium scan with : single focal area of accumulation in the soft tissues just anterior to the right mandible with focal soft tissue swelling in this location. The bony structure of the mandible is grossly unremarkable. - repeat panculture negative to date. -ID follow- up appreciated and cleared for discharge. End-stage renal disease on peritoneal dialysis. converted to hemodialysis- since Patient has been noncompliant with poor technique doing PD. s/p Permcath placement- s/p AVF placement. nephrology and vascular surgery following. Hematemesis One episode 01/23/17. GI consult appreciated. - EGD showed esophagitis and gastritis. Continue PPI. Antireflux mechanisms discussed with the patient. Follow up pathology no fungal organisms. Negative for H. pylori. He has reactive gastropathy and esophagitis -continue PPI. Acute respiratory alkalosis/ COPD Alkalosis likely compensatory for metabolic acidosis. Pt was previously on prednisone, unclear if secondary to COPD. He smokes a pack every few days. Breathing is stable at this point. S/p prednisone. - smoking cessation instruction. - oxygen as needed. - encourage ambulation. Hypertension - resumed clonidine at a lower dose and amlodipine. Increase clonidine as needed. -continue to monitor BP. Chronic anemia Likely due to chronic disease. - follow CBC and transfuse as needed. Sinus tachycardia Multifactorial. TSH within normal limits. Improving continue metoprolol . -- telemetry. Diabetes mellitus overall better controlled. - low dose dose insulin sliding scale. Continue Levemir 7 units daily, 5 units HS. Secondary hyperparathyroidism due to renal disease. - Calcitriol 0.25 mg po daily, calcium acetate 667 mg po tid. PPx: Heparin Discharge Planning discharge when cleared by nephrology and vascular surgery. Mac Suggs MD Feb 03, 2017 12:41
--- NOTE | 2017-02-03 13:05 | MB ---
cc: KRISTYN MILLS M.D., DAVID G. M.D. DATE OF CONSULTATION 02/02/2017 REASON FOR CONSULTATION Removal of peritoneal dialysis catheter. BRIEF HISTORY This is a 61-year-old -Citizen Of [place] gentleman who is well-known to me from placement of a peritoneal dialysis catheter back in October who apparently was unable to successfully use his peritoneal dialysis catheter. He was admitted to the hospital on 01/15/2017 with the diagnosis of diabetic ketoacidosis and questionable peritonitis. He was being transitioned to hemodialysis and had a PermCath placed yesterday. His peritoneal fluid has been clear, but due to his inability to adequately use the peritoneal dialysis catheter, request has been made for removal. ALLERGIES THE PATIENT HAS AN ALLERGY TO ASPIRIN. PAST MEDICAL HISTORY His previous medical problems include: 1. Hepatitis C 2. Hypertension 3. Chronic kidney disease dialysis dependent 4. Diabetes 5. Chronic low back pain 6. COPD PAST SURGICAL HISTORY Include the laparoscopic-assisted peritoneal dialysis catheter placement. MEDICATIONS Routine medications include: 1. Prednisone 2. Clonidine 3. Norvasc 4. Zantac 5. Lantus 6. Insulin sliding scale 7. Calcium acetate 8. Calcitriol SOCIAL HISTORY He is a half-pack a day smoker. Denies alcohol use. He has occasional marijuana use. His is . He is on disability due to chronic low back pain. FAMILY HISTORY He has a family history of diabetes and myocardial infarctions. Mother and his father lived to the age of 98. REVIEW OF SYSTEMS Other than as discussed in the HPI, he has had dry skin and itching. PHYSICAL EXAM On physical exam, his vital signs include a temperature of 98.2, pulse of 101, respiratory rate of 16, blood pressure 103/68, O2 sat is 96% on room air. HEENT: Normocephalic, atraumatic. His pupils are 4-5 mm, round and sluggishly reactive to light. His sclerae are anicteric. His oropharynx clear. He has an upper full denture plate. Mucous membranes appear moist. NECK: His neck is supple without adenopathy. He has a PermCath exiting the right upper chest to access its entry sites internal jugular and exit sites right infraclavicular. LUNGS: He has equal bilateral breath sounds. CARDIAC: His heart sounds appear regular without obvious murmur, rub or gallop. SKIN: His skin overall is dry. He has got signs of scratching himself on the extremities and torso. ABDOMEN: His abdomen is soft and nondistended. He has a PD catheter exiting in his left upper abdomen. There is no obvious sign of infection. He has no peritonitis on exam. The small incisions from placement are all well-healed. EXTREMITIES: His extremities again show the dry skin. He has got no cyanosis or clubbing. NEUROLOGIC: He is awake, alert and oriented. He has equal bilateral contact clerk strength and no gross motor sensory deficit. LABS From yesterday showed a hemoglobin of 10.3 and a platelet count of 414. His coagulation studies show an INR of 1.1. His potassium is 3.9, creatinine of 10.84. He has been on vancomycin during this hospitalization, but I believe that has been stopped. His blood cultures and peritoneal fluid cultures have all been negative. He has had a CT of the chest which shows a small left pleural effusion. He has a chest x-ray which showed no acute abnormality. CT abdomen and pelvis showed the peritoneal dialysis catheter. No acute inflammatory changes. ASSESSMENT This is a 61-year-old -Citizen Of [place] gentleman who was not able to successfully use the peritoneal dialysis catheter. He is being transitioned to hemodialysis and has had a PermCath placed. I discussed with him removal of the peritoneal dialysis catheter. The procedure in detail plus risks of bleeding, infection, wounds and scar formation. He understands and wished to proceed. Surgery will be scheduled for tomorrow afternoon at [place]. MD WILLIAMS Adrian/YULISSA /7:58 AM /1:01 PM
--- NOTE | 2017-02-03 13:43 | HHI.NPPN ---
Subjective History of Present Illness 61-year-old black male with history of end-stage renal disease, hypertension, new onset of diabetes he was admitted last time with severe hyperglycemia, he was discharge home and he said he did not know how to take insulin and has not taken insulin him back with some abdominal pain, hyperglycemia and received peritoneal dialysis culture has been pending total WBC count was 120 with only 8 % neutrophils. Review of Systems General Constitutional: Fever, Fatigue Cardiovascular Cardiac: AGUILAR Objective Data Data 02/02/17 02/03/17 19:00 07:00 Intake Total 0 ml 240 ml Output Total 1459 ml 0 ml Balance -1459 ml 240 ml Intake Oral 0 ml 240 ml Output Urine Total 0 ml Peritoneal Fluid 459 ml Hemodialysis 1000 ml # Voids 2 # Bowel Movements 1 Vital Signs Date Time Temp Pulse Resp B/P Pulse Ox O2 Delivery O2 Flow Rate FiO2 02/03/17 12:35 97.7 104 20 119/78 98 02/03/17 08:40 Room Air 02/03/17 08:03 101 02/03/17 08:00 98.8 102 18 106/73 98 02/03/17 04:40 98.2 101 16 103/68 96 02/03/17 04:00 Room Air 02/03/17 00:00 Room Air 02/02/17 23:22 98.0 101 16 123/71 100 02/02/17 20:15 98.6 113 16 92/68 100 02/02/17 20:00 Room Air 02/02/17 20:00 114 02/02/17 17:00 97.7 120 18 123/58 100 -: 02/03/17 0919 02/03/17 0919 Physical Exam General Appearance: Well Nourished, No Acute Distress, Comfortable Eyes Eye Exam: Pupils Equal Throat Throat Exam: Oral Mucosa Hepler & Moist Neck Neck Exam: Neck Supple Pulmonary Resp Exam: Breath Sounds Equal, No Distress, Decreased Bases Cardiology CV Exam: Tachycardia Gastrointestinal/Abdomen GI Exam: Soft, Non-Tender, Bowel Sounds Present, Distended (with PD catheter in place.) Extremeties Extremities Exam: Trace Edema Neurologic Neuro Exam: Alert, Awake, Oriented Psychiatric Psych Exam: Appropriate Responses Assessment/Plan Problem List: (1) ESRD (end stage renal disease) Plan: converted to hemodialysis via P/C Cultures have been negative. social issues Vascular AVF placement need PD catheter out as febrile on and off schedule for tomorrow and had issues with improper technique possible infection appreciate Dr. Dot high TB test weakly positive PPD in clinic October 29 negative December 04 negative ID can be followed as out patient no obvious source of infection FU as out patient (2) HTN (hypertension) Plan: Continue to monitor (3) Diabetic hyperosmolar non-ketotic state Plan: Blood sugar is acceptable. Problem Qualifiers (1) HTN (hypertension): Qualified Code: I10 - Essential hypertension Ned Sosa MD Feb 03, 2017 13:43
--- NOTE | 2017-02-03 15:09 | HHI.PR ---
Addendum to Inpatient Note Additional Information repeat quantiferron + again Gallium scan results nnoted -will get fu CT of the chest to re-eveluate pleu effusion L Tosha Mitchell MD Feb 03, 2017 15:09
[2017-02-03 16:00] VITALS: BP 113/76; PULSE 118; RESP 20; TEMP 98.5; O2SAT 97
[2017-02-03 20:00] VITALS: BP 122/73; PULSE 103; PULSE 104; RESP 19; TEMP 98; O2SAT 100
--- NOTE | 2017-02-03 20:27 | RADRPT ---
EXAM DATE/TIME: 02/03/2017 19:50 [facility] COMPARISON: CT THORAX W/O CONTRAST, January 29, 2017, 16:57. INDICATIONS : Pleural effusion. RADIATION DOSE: 5.1 CTDIvol (mGy) MEDICAL HISTORY : Hypertension. Chronic obstructive pulmonary disease. Diabetes mellitus type 2. Hep C SURGICAL HISTORY : None. ENCOUNTER: Initial ACUITY: 1 day PAIN SCALE: 5/10 LOCATION: Bilateral chest TECHNIQUE: Volumetric scanning of the chest was performed. Using automated exposure control and adjustment of t he mA and/or kV according to patient size, radiation dose was kept as low as reasonably achievable to obtain optimal diagnostic quality images. DICOM format image data is available electronically for r eview and comparison. FINDINGS: LUNGS: There is minimal atelectasis or consolidation at the posterior lung bases adjacent to the minimal eff usions. There is mild emphysematous change in the upper lungs. PLEURAE: There are minimal bilateral pleural effusions. MEDIASTINUM: The heart and great vessels demonstrate no acute abnormality. There is no mediastinal or hilar lymph adenopathy. There is a right internal jugular double-lumen catheter in place. Coronary artery calcifi c lesions are present. AXILLAE: Within normal limits. No lymphadenopathy. MUSCULOSKELETAL: Within normal limits for patient age. MISCELLANEOUS: The visualized upper abdominal organs demonstrate no acute abnormality. There is a mild amount of asc ites seen around the liver. CONCLUSION: 1. Minimal bilateral pleural effusions with atelectasis or consolidation at the bases. 2. Mild emphysematous change. 3. Mild ascites around the liver. Juan Lemon MD on February 03, 2017 at 20:22 Board Certified Radiologist. This report was verified electronically.
--- NOTE | 2017-02-03 22:41 | HHI.IDPN ---
Subjective Subjective Remarks Pt seen ealier today around 1500; delayed entry No co awaiting removal of Tenkoff Repeat quantiferron weakly positive again Remains afebrile Antibiotics none Allergies: Coded Allergies: Aspirin (Unverified Allergy, Unknown, 01/15/17) HEP C Objective . Vital Signs Date Time Temp Pulse Resp B/P Pulse Ox O2 Delivery O2 Flow Rate FiO2 02/03/17 20:00 98.0 104 19 122/73 100 02/03/17 16:00 98.5 118 20 113/76 97 02/03/17 12:35 97.7 104 20 119/78 98 02/03/17 12:22 98.0 96 16 115/67 100 Room Air 02/03/17 12:00 98 15 120/70 100 Room Air 02/03/17 11:45 98 16 118/70 100 Nasal Cannula 2 02/03/17 11:30 102 15 114/75 100 Nasal Cannula 2 02/03/17 11:22 99.1 105 15 111/75 100 Nasal Cannula 2 02/03/17 08:40 Room Air 02/03/17 08:03 101 02/03/17 08:00 98.8 102 18 106/73 98 02/03/17 04:40 98.2 101 16 103/68 96 02/03/17 04:00 Room Air 02/03/17 00:00 Room Air 02/02/17 23:22 98.0 101 16 123/71 100 02/02/17 02/02/17 02/03/17 15:00 23:00 07:00 Intake Total 0 ml 240 ml 0 ml Output Total 459 ml 1000 ml 0 ml Balance -459 ml -760 ml 0 ml Intake Oral 0 ml 240 ml 0 ml Output Urine Total 0 ml Peritoneal Fluid 459 ml Hemodialysis 1000 ml # Voids 2 # Bowel Movements 1 0 . Laboratory Tests Test 02/02/17 02/03/17 08:32 09:19 White Blood Count 10.3 TH/MM3 9.2 TH/MM3 Red Blood Count 3.48 MIL/MM3 2.99 MIL/MM3 Hemoglobin 10.3 GM/DL 9.0 GM/DL Hematocrit 31.6 % 27.2 % Mean Corpuscular Volume 90.8 FL 90.8 FL Mean Corpuscular Hemoglobin 29.5 PG 30.2 PG Mean Corpuscular Hemoglobin 32.5 % 33.3 % Concent Red Cell Distribution Width 17.0 % 17.0 % Platelet Count 414 TH/MM3 337 TH/MM3 Mean Platelet Volume 7.8 FL 7.3 FL Neutrophils (%) (Auto) 61.3 % 63.0 % Lymphocytes (%) (Auto) 25.9 % 22.4 % Monocytes (%) (Auto) 9.8 % 11.3 % Eosinophils (%) (Auto) 2.7 % 2.6 % Basophils (%) (Auto) 0.3 % 0.7 % Neutrophils # (Auto) 6.3 TH/MM3 5.8 TH/MM3 Lymphocytes # (Auto) 2.7 TH/MM3 2.1 TH/MM3 Monocytes # (Auto) 1.0 TH/MM3 1.0 TH/MM3 Eosinophils # (Auto) 0.3 TH/MM3 0.2 TH/MM3 Basophils # (Auto) 0.0 TH/MM3 0.1 TH/MM3 CBC Comment AUTO DIFF AUTO DIFF Differential Comment AUTO DIFF AUTO DIFF CONFIRMED CONFIRMED Polychromasia 2.7 % Ovalocytes 1+ Laboratory Tests Test 02/02/17 02/03/17 08:32 09:19 Sodium Level 138 MEQ/L 138 MEQ/L Potassium Level 3.9 MEQ/L 4.6 MEQ/L Chloride Level 99 MEQ/L 99 MEQ/L Carbon Dioxide Level 25.7 MEQ/L 32.5 MEQ/L Anion Gap 13 MEQ/L 7 MEQ/L Blood Urea Nitrogen 33 MG/DL 24 MG/DL Creatinine 10.84 MG/DL 8.57 MG/DL Estimat Glomerular Filtration 6 ML/MIN 8 ML/MIN Rate Random Glucose 94 MG/DL 80 MG/DL Calcium Level 8.7 MG/DL 8.1 MG/DL Phosphorus Level 4.8 MG/DL Imaging Last Impressions Chest CT 02/03/17 0000 Signed Impressions: Service Date/Time: Friday, February 03, 2017 19:50 - CONCLUSION: 1. Minimal bilateral pleural effusions with atelectasis or consolidation at the bases. 2. Mild emphysematous change. 3. Mild ascites around the liver. Juan Lemon MD Catheter Placement X-Ray 02/02/17 0000 Signed Impressions: Service Date/Time: Thursday, February 02, 2017 11:44 - CONCLUSION: Uncomplicated PermaCath placement as above. González Mederos MD Upper Extremity Ultrasound 01/29/17 0000 Signed Impressions: Service Date/Time: January 17:57 - CONCLUSION: Negative exam with no evidence of deep venous thrombosis. Saud Kowalski MD Gallium Scan Nuclear Medicine 01/29/17 0000 Signed Impressions: Service Date/Time: January 00:00 - CONCLUSION: Single focal area of accumulation in the soft tissues just anterior to the right mandible. There is focal soft tissue swelling in this location. The bony structure of the mandible is grossly unremarkable. Joce De Luna MD Chest X-Ray 01/23/17 0000 Signed Impressions: Service Date/Time: Monday, January 23, 2017 11:42 - CONCLUSION: 1. No acute abnormality or significant interval change. González Mederos MD Lung Scan-VQ Nuclear Medicine 01/16/17 0000 Signed Impressions: Service Date/Time: Monday, January 16, 2017 15:38 - CONCLUSION: Low probability for pulmonary embolism. Edgardo Goldstein MD FACR Lower Extremity Ultrasound 01/16/17 0000 Signed Impressions: Service Date/Time: Monday, January 16, 2017 08:17 - CONCLUSION: Normal examination. Satinder Khanna Jr., MD Abdomen/Pelvis CT 01/15/17 0000 Signed Impressions: Service Date/Time: January 22:54 - CONCLUSION: 1. Patient is on peritoneal dialysis. There is small moderate ascites, increased from before. No loculated fluid. 2. Decreased gastric wall thickening, now mild. Nasogastric tube has been removed. 3. No obstruction or perceptible acute inflammatory changes seen of the gastrointestinal tract. Juan Mercado MD Physical Exam CONSTITUTIONAL/GENERAL: This is an adequately nourished patient, in no apparent distress. TUBES/LINES/DRAINS: SKIN: No jaundice, rashes, or lesions. . EYES: No scleral icterus. CARDIOVASCULAR: Regular rate and rhythm without murmurs, gallops, or rubs. No JVD. Peripheral pulses symmetric. RESPIRATORY/CHEST: Symmetric, unlabored respirations. Clear to auscultation. Breath sounds equal bilaterally. No wheezes, rales, or rhonchi. GASTROINTESTINAL: Abdomen soft, non-tender, mildly distended. No hepato- splenomegaly, or palpable masses. No guarding. Bowel sounds present. Tenkoff in place -site [place] MUSCULOSKELETAL: Extremities without clubbing, cyanosis, or edema. NEUROLOGICAL: Awake and alert. Non focal PSYCHIATRIC: No obvious anxiety/depression. no apparent hallucinations or other psychotic thought process. Assessment & Plan Remarks FUO - intermittent fever, pt remains clinically well extensive w/u essentially failed to localyze the source; combination of high fever and ESR (>140) is very worrysome for persistent nidus of infx - New low positive TB test (quantiferron); repeat test is positive again findings cw false + vs LTBI - No clinical e/o pulmonary or extrapulmonary TB - - b/l effusions on repeat CT are not cw tuberculos preocess clinically or radiologically - complete resolution of fever - ROBYN negative - HIV neg - CMV, crypto - neg - all clx negative up to date - Procalcitonine high, but pt is in ESRD - diff to interprete - small leukocyutosis as well - RICO CPK RF neg; SPEP cw renal protein loss Leukocytosis, mild - resolved lactic acidosis -- resolved suspected PD related peritonitis, clx negative - neg routine clx @ 48 hrs Poorly controlled DM Immunosuppressed: high dose d sterroids (pt is unaware for what disease and for how long he is taking it "I just take what the doctor tells me"): still unclear the indication for prednisone - Prednisone stopped HCV Elevated lipase, but no abd pain to suggest pancreatitis and no CT changes Hematoemesis, resolved - sp EGD, path P; esophagitits seen, can not explain pt's FUO REC's: cont cefepime, to complete 14 days (thru 03/06) OK for placement of Permacath for hemodyalisis will dc home ? repeat quantiferron in few weeks before considering LTBI treatment (pt is low risk for exposure, high risk for progression (DM, ESRD), quantirferron is weakly positive and might not be truly positive). More convincing data needed before starting him on LTBI treatment in the settings of elevated risk liver complications (age, unreatetd hep C) Tosha Mitchell MD Feb 03, 2017 22:41
[2017-02-04] VITALS (10 sets, daily range): BP systolic 95–130; BP diastolic 64–74; PULSE 97–119; RESP 16–20; TEMP 97.9–98.8; O2SAT 94–99
[2017-02-04] MEDS: CHLORHEXIDINE GLUCONATE 2 % 1 PACK (2 CLOTHS) TOP SCH (04:00)
[2017-02-04] MEDS: INSULIN ASPART SUPPLEMENTAL SCALE SQ SCH ×2 (05:46→17:10)
[2017-02-04 07:50] LABS: BICARBONATE 29.5 MEQ/L (21.0-32.0); POTASSIUM 5.2 MEQ/L (3.5-5.1)
[2017-02-04] MEDS: PANTOPRAZOLE SOD 40 MG DELAYED RELEASE TAB PO SCH (09:00)
[2017-02-04] MEDS: SODIUM CHLORIDE 0.9% FLUSH 10 ML FLUSH SCH ×2 (09:00→22:14)
[2017-02-04] MEDS: CALCIUM ACETATE 667 MG CAP PO SCH ×3 (09:00→18:19)
[2017-02-04] MEDS: DOCUSATE SODIUM 50 MG/SENNA 8.6 MG TAB PO SCH ×3 (09:00→22:17)
[2017-02-04] MEDS: THIAMINE HCL 100 MG TAB PO SCH (09:00)
[2017-02-04] MEDS: INSULIN DETEMIR 100 UNITS/ML VIAL SQ SCH ×2 (09:00→22:16)
[2017-02-04] MEDS: cloNIDine HCL 0.1 MG TAB PO SCH ×3 (09:00→18:17)
[2017-02-04] MEDS: CALCITRIOL 0.25 MCG CAP PO SCH (09:00)
[2017-02-04] MEDS: HEPARIN SODIUM - SQ 10,000 UNITS/ML VIAL SQ SCH ×2 (09:00→22:15)
--- NOTE | 2017-02-04 09:06 | PD.VS.PN ---
Subjective POD #: 1 Procedure(s): L brachial artery-brachial vein AVF (1st stage) Subjective/Hospital Course Pt with a HX of failing PD treatment and transitioning to HD Afebrile Pt in bed this am w/o complaints Pt denies hand pain No Motor deficits present Objective Vitals/I&O Date Time Temp Pulse Resp B/P Pulse Ox O2 Delivery O2 Flow Rate FiO2 02/04/17 04:00 98.0 97 16 111/70 98 02/04/17 04:00 Room Air 02/04/17 00:00 Room Air 02/04/17 00:00 98.3 99 16 112/69 94 02/03/17 20:00 Room Air 02/03/17 20:00 103 02/03/17 20:00 98.0 104 19 122/73 100 02/03/17 16:00 98.5 118 20 113/76 97 02/03/17 12:35 97.7 104 20 119/78 98 02/03/17 12:22 98.0 96 16 115/67 100 Room Air 02/03/17 12:00 98 15 120/70 100 Room Air 02/03/17 11:45 98 16 118/70 100 Nasal Cannula 2 02/03/17 11:30 102 15 114/75 100 Nasal Cannula 2 02/03/17 11:22 99.1 105 15 111/75 100 Nasal Cannula 2 02/04/17 02/04/17 02/04/17 07:00 15:00 23:00 Intake Total 0 ml Output Total 0 ml Balance 0 ml Exam: GENERAL: Pt is A&OX3, NAD, GCS 15 SKIN: Warm and dry/ Incision to L UE intact with surgical glue, NO R/D/S present MUSCULOSKELETAL: No cyanosis, or edema to UE, Pt is with equal infantry weapons officer strength/ BUE warm to touch with no Motor deficits Bilat Radial pulses palpable 1+ Pulses: 1+ palpable Radial pulses Incisions: LUE incision i/c/d Laboratory Laboratory Tests Test 02/03/17 02/04/17 09:19 06:41 White Blood Count 9.2 Red Blood Count 2.99 Hemoglobin 9.0 Hematocrit 27.2 Mean Corpuscular Volume 90.8 Mean Corpuscular Hemoglobin 30.2 Mean Corpuscular Hemoglobin 33.3 Concent Red Cell Distribution Width 17.0 Platelet Count 337 Mean Platelet Volume 7.3 Neutrophils (%) (Auto) 63.0 Lymphocytes (%) (Auto) 22.4 Monocytes (%) (Auto) 11.3 Eosinophils (%) (Auto) 2.6 Basophils (%) (Auto) 0.7 Neutrophils # (Auto) 5.8 Lymphocytes # (Auto) 2.1 Monocytes # (Auto) 1.0 Eosinophils # (Auto) 0.2 Basophils # (Auto) 0.1 CBC Comment AUTO DIFF Differential Comment AUTO DIFF CONFIRMED Sodium Level 138 138 Potassium Level 4.6 5.2 Chloride Level 99 99 Carbon Dioxide Level 32.5 29.5 Anion Gap 7 10 Blood Urea Nitrogen 24 29 Creatinine 8.57 10.45 Estimat Glomerular Filtration 8 6 Rate Random Glucose 80 78 Calcium Level 8.1 8.1 Phosphorus Level 4.8 Assessment and Plan Assessment: (1) ESRD (end stage renal disease) Status: Acute Plan Failing PD in patient with poor compliance and likely better off with HD. Plan LEFT arm AVF creation look good this am Pt is w/o hand pain or motor deficits Arranged for patient to f/u in our out patient clinic in 2w Pain Rx written for OP pain control and placed in the chart Sophie BURDEN [facility] [phone] Discharge Planning Pt cleared for D/C from a Vascular standpoint Pt will follow up in our OPC in 2W Appointment time and date was given to patient Sophie Kimball Feb 04, 2017 09:06
[2017-02-04] MEDS ORDERED: WATE IV ONE (09:15)
[2017-02-04] MEDS ORDERED: DEXTROSE 5% IV ONE (09:15)
--- NOTE | 2017-02-04 10:49 | HHI.PR ---
Subjective Remarks resting comfortably with no distress. no new complaints. afebrile. awaiting peritoneal access removal this afternoon. d/w the vascular surgery [employer]LLOW TILE PARTITION ERECTOR and RN. Objective Vitals Vital Signs Date Time Temp Pulse Resp B/P Pulse Ox O2 Delivery O2 Flow Rate FiO2 02/04/17 08:00 97.9 103 20 114/69 98 02/04/17 04:00 98.0 97 16 111/70 98 02/04/17 04:00 Room Air 02/04/17 00:00 Room Air 02/04/17 00:00 98.3 99 16 112/69 94 02/03/17 20:00 Room Air 02/03/17 20:00 103 02/03/17 20:00 98.0 104 19 122/73 100 02/03/17 16:00 98.5 118 20 113/76 97 02/03/17 12:35 97.7 104 20 119/78 98 02/03/17 12:22 98.0 96 16 115/67 100 Room Air 02/03/17 12:00 98 15 120/70 100 Room Air 02/03/17 11:45 98 16 118/70 100 Nasal Cannula 2 02/03/17 11:30 102 15 114/75 100 Nasal Cannula 2 02/03/17 11:22 99.1 105 15 111/75 100 Nasal Cannula 2 I/O 02/03/17 02/03/17 02/03/17 02/04/17 02/04/17 02/04/17 07:00 15:00 23:00 07:00 15:00 23:00 Intake Total 0 ml 560 ml 0 ml 0 ml Output Total 0 ml 20 ml 0 ml 0 ml Balance 0 ml 540 ml 0 ml 0 ml Intake Oral 0 ml 360 ml 0 ml 0 ml IV Total 0 ml Other 200 ml Output Urine Total 0 ml 0 ml 0 ml 0 ml Estimated Blood Loss 20 ml # Voids 0 # Bowel Movements 0 0 0 Result Diagram: 02/03/17 0919 02/04/17 0641 Imaging Last Impressions Chest CT 02/03/17 0000 Signed Impressions: Service Date/Time: Friday, February 03, 2017 19:50 - CONCLUSION: 1. Minimal bilateral pleural effusions with atelectasis or consolidation at the bases. 2. Mild emphysematous change. 3. Mild ascites around the liver. Juan Lemon MD Catheter Placement X-Ray 02/02/17 Signed Impressions: Service Date/Time: Thursday, February 02, 2017 11:44 - CONCLUSION: Uncomplicated PermaCath placement as above. González Mederos MD Upper Extremity Ultrasound 01/29/17 Signed Impressions: Service Date/Time: January 17:57 - CONCLUSION: Negative exam with no evidence of deep venous thrombosis. Saud Kowalski MD Gallium Scan Nuclear Medicine 01/29/17 Signed Impressions: Service Date/Time: January 00:00 - CONCLUSION: Single focal area of accumulation in the soft tissues just anterior to the right mandible. There is focal soft tissue swelling in this location. The bony structure of the mandible is grossly unremarkable. Joce De Luna MD Chest X-Ray 01/23/17 Signed Impressions: Service Date/Time: Monday, January 23, 2017 11:42 - CONCLUSION: 1. No acute abnormality or significant interval change. González Mederos MD Lung Scan-VQ Nuclear Medicine 01/16/17 Signed Impressions: Service Date/Time: Monday, January 16, 2017 15:38 - CONCLUSION: Low probability for pulmonary embolism. Edgardo Goldstein MD FACR Lower Extremity Ultrasound 01/16/17 Signed Impressions: Service Date/Time: Monday, January 16, 2017 08:17 - CONCLUSION: Normal examination. Satinder Khanna Jr., MD Abdomen/Pelvis CT 01/15/17 Signed Impressions: Service Date/Time: January 22:54 - CONCLUSION: 1. Patient is on peritoneal dialysis. There is small moderate ascites, increased from before. No loculated fluid. 2. Decreased gastric wall thickening, now mild. Nasogastric tube has been removed. 3. No obstruction or perceptible acute inflammatory changes seen of the gastrointestinal tract. Juan Mercado MD Objective Remarks GENERAL: in no apparent distress. CARDIOVASCULAR: Regular rate and regular rhythm without murmurs, gallops, or rubs. RESPIRATORY: Clear to auscultation. Breath sounds equal bilaterally. No wheezes , rales, or rhonchi. GASTROINTESTINAL: Abdomen soft, non-tender, nondistended. Normal, active bowel sounds- peritoneal dialysis access in place. MUSCULOSKELETAL: Extremities without clubbing, cyanosis, or edema. NEURO: Alert & Oriented x4 to person, place, time, situation. Moves all ext x4 Procedures EGD permacath placement AVF placement Medications and IVs Current Medications Sodium Chloride (NS 1000 ml Inj) 1,000 ml @ 1,000 mls/hr Q1H IV Last administered on 01/15/17 21:22; Start 01/15/17 at 20:57; Stop 01/15/17 at 21:56; Status DC Insulin Human Regular 10 units 10 units ONCE ONCE SQ Last administered on 21:22; Start 01/15/17 at 21:00; Stop 01/15/17 at 21:01; Status DC Vancomycin HCl 1000 mg/Sodium Chloride 250 ml @ 250 mls/hr ONCE ONCE IV Last administered on 01/15/17 22:43; Start 01/15/17 at 22:30; Stop 01/15/17 at 23:29; Status DC Ampicillin Sodium/ Sulbactam Sodium/ Sodium Chloride (Unasyn Inj/NS Inj) 100 ml @ 200 mls/hr ONCE ONCE IV Last administered on 01/15/17 21:53; Start 01/15/17 at 21:45; Stop 01/15/17 at 22:14; Status DC Acetaminophen 650 mg 650 mg ONCE ONCE PO Last administered on 01/15/17 21:53; Start 01/15/17 at 21:45; Stop 01/15/17 at 21:46; Status DC Sodium Chloride (NS 1000 ml Inj) 1,000 ml @ 1,000 mls/hr Q1H IV Last administered on 01/15/17 22:43; Start 01/15/17 at 22:05; Stop 01/15/17 at 23:04; Status DC Heparin Sodium (Porcine) (Heparin Inj) 1,000 units WITH DIALYSIS PRN XX SEE LABEL COMMENTS; Start 01/15/17 at 22:30 Sodium Chloride (NS Flush) 10 ml UNSCH PRN IV FLUSH SEE LABEL COMMENTS; Start 01/15/17 at 22:30 Vancomycin HCl (Vancomycin Inj) 2,000 mg Q7D IP Last administered on 01/15/17 23:34; Start 01/15/17 at 22:30; Stop 01/16/17 at 10:45; Status DC Ceftazidime (Fortaz Inj) 1,000 mg DAILY IP Last administered on 01/16/17 08:03 ; Start 01/16/17 at 09:00; Stop 01/16/17 at 10:45; Status DC Ceftazidime (Fortaz Inj) 1,000 mg NOW IP Last administered on 01/15/17 23:34; Start 01/15/17 at 23:15; Stop 01/16/17 at 00:45; Status DC Sodium Chloride (NS Flush) 2 ml UNSCH PRN .XX FLUSH AFTER USING IV ACCESS; Start 01/15/17 at 23:30 Sodium Chloride (NS Flush) 2 ml BID .XX Last administered on 02/03/17 20:19; Start 01/16/17 at 09:00 Acetaminophen (Tylenol) 650 mg Q6H PRN PO PAIN 1-10 AND/OR FEVER >101F Last administered on 01/29/17 22:34; Start 01/15/17 at 23:30 Pantoprazole Sodium (Protonix Inj) 40 mg DAILY IV Last administered on 09:35; Start 01/16/17 at 09:00; Stop 01/21/17 at 09:41; Status DC Ondansetron HCl (Zofran Inj) 4 mg Q6H PRN IV NAUSEA OR VOMITING Last administered on 02/02/17 15:07; Start 01/15/17 at 23:30 Albuterol/ Ipratropium (Duoneb Neb) 1 ampule Q6HR NEB INH Last administered on 01/19/17 19:09; Start 01/16/17 at 04:00; Stop 01/20/17 at 04:00; Status DC Albuterol Sulfate (Albuterol Neb) 2.5 mg Q2HR NEB PRN INH SOB/WHEEZING; Start 01/15/17 at 23:30 Miscellaneous Information 1 [id number] XX Last administered on 01/15/17 23:30; Start 01/15/17 at 23:30 Chlorhexidine Gluconate (Chlorhexidine 2% Cloth) 3 pack Taper DAILY@04 TOP Last administered on 01/18/17 04:00; Start 01/16/17 at 04:00; Stop 01/12/18 at 03 :59 Chlorhexidine Gluconate (Chlorhexidine 2% Cloth) 3 pack UNSCH PRN TOP HYGIENIC CARE; Start 01/15/17 at 23:30 Senna/Docusate Sodium (Jessica-Colace) 1 tab BID PO Last administered on 20:16; Start 01/16/17 at 09:00 Magnesium Hydroxide (Milk Of Magnesia Liq) 30 ml Q12H PRN PO MILD - MODERATE CONSTIPATION; Start 01/15/17 at 23:30; Stop 01/25/17 at 08:32; Status DC Sennosides (Senokot) 17.2 mg Q12H PRN PO MODERATE - SEVERE CONSTIPATION; Start 01/15/17 at 23:30 Bisacodyl (Dulcolax Supp) 10 mg DAILY PRN RECTAL SEVERE CONSITIPATION; Start at 23:30 Lactulose (Lactulose Liq) 30 ml DAILY PRN PO SEVERE CONSITIPATION; Start at 23:30 Dextrose (D50w (Vial) Inj) 50 ml UNSCH PRN IV HYPOGLYCEMIA-SEE COMMENTS; Start 01/15/17 at 23:45; Stop 01/19/17 at 11:22; Status DC Glucagon (Glucagon Inj) 1 mg UNSCH PRN OTHER HYPOGLYCEMIA-SEE COMMENTS; Start 01/15/17 at 23:45; Stop 01/19/17 at 11:22; Status DC Insulin Aspart (NovoLOG SUPPLEMENTAL SCALE) 1 Q4H SQ Last administered on 11:45; Start 01/15/17 at 23:45; Stop 01/18/17 at 15:42; Status DC Lactulose (Lactulose Liq) 30 ml ONCE ONCE PO Last administered on 01/16/17 00: 44; Start 01/15/17 at 23:45; Stop 01/15/17 at 23:54; Status DC Amlodipine Besylate (Norvasc) 5 mg BID PO Last administered on 02/03/17 20:16 ; Start 01/16/17 at 09:00 Calcitriol (Rocaltrol) 0.25 mcg DAILY PO Last administered on 02/01/17 08:37; Start 01/16/17 at 09:00 Calcium Acetate (Phoslo) 667 mg TID PO Last administered on 02/03/17 17:16; Start 01/16/17 at 09:00 Clonidine (Catapres) 0.3 mg TID PO Last administered on 01/19/17 17:14; Start 01/16/17 at 09:00; Stop 01/23/17 at 15:24; Status DC Labetalol HCl (Trandate Inj) 10 mg Q4H PRN IV PUSH SBP >170 Last administered on 01/22/17 16:00; Start 01/16/17 at 00:15 Insulin Detemir 5 units 5 units ONCE SQ Last administered on 01/16/17 00:46; Start 01/16/17 at 00:15; Stop 01/16/17 at 02:00; Status DC Ceftazidime/ Sodium Chloride (Fortaz Inj/NS Inj) 100 ml @ 200 mls/hr ONCE ONCE IV Last administered on 01/16/17 03:43; Start 01/16/17 at 04:00; Stop at 04:29; Status DC Clonidine (Catapres) 0.3 mg ONCE ONCE PO Last administered on 01/16/17 04:47; Start 01/16/17 at 04:45; Stop 01/16/17 at 04:46; Status DC Heparin Sodium (Porcine) (Heparin Inj) 5,000 units Q12HR SQ Last administered on 02/03/17 20:17; Start 01/16/17 at 09:00 Acetaminophen/ Hydrocodone Bitart (Sabael 5-325 Mg) 1 tab Q6H PRN PO PAIN Last administered on 02/03/17 20:16; Start 01/16/17 at 05:15 Morphine Sulfate (Morphine Inj) 2 mg Q3H PRN IV PUSH BREAKTHROUGH PAIN; Start 01/16/17 at 05:15 Potassium Chloride (KCl) 20 meq Q12HR PO Last administered on 01/20/17 00:29; Start 01/16/17 at 10:45; Status Hold Insulin Aspart (NovoLOG SUPPLEMENTAL SCALE) 1 ACHS SLIDING SCALE SQ Last administered on 01/19/17 06:21; Start 01/18/17 at 16:00; Stop 01/19/17 at 11:08 ; Status DC Insulin Detemir 5 units 5 units Q12HR SQ Last administered on 01/20/17 22:11; Start 01/19/17 at 12:00; Stop 01/21/17 at 09:18; Status DC Cefepime HCl/ Sodium Chloride (Maxipime Inj/NS Inj) 100 ml @ 200 mls/hr ONCE ONCE IV Last administered on 01/19/17 11:47; Start 01/19/17 at 12:00; Stop 07/26 at 12:29; Status DC Dextrose (D50w (Vial) Inj) 50 ml UNSCH PRN IV HYPOGLYCEMIA-SEE COMMENTS; Start 01/19/17 at 11:15 Glucagon (Glucagon Inj) 1 mg UNSCH PRN OTHER HYPOGLYCEMIA-SEE COMMENTS; Start 01/19/17 at 11:15 Insulin Human Regular (NovoLIN R SUPPLEMENTAL SCALE) 1 ACHS SLIDING SCALE SQ ; Start 01/19/17 at 16:00; Stop 01/19/17 at 16:00; Status DC Insulin Human Regular (NovoLIN R SUPPLEMENTAL SCALE) 1 ACHS SLIDING SCALE SQ Last administered on 01/23/17 12:49; Start 01/19/17 at 14:00; Stop 01/23/17 at 15:17; Status DC Thiamine HCl (Vitamin B1) 100 mg ONCE ONCE PO Last administered on 01/19/17 18:11; Start 01/19/17 at 17:45; Stop 01/19/17 at 17:46; Status DC Thiamine HCl 100 mg 100 mg DAILY PO Last administered on 02/01/17 08:37; Start 01/20/17 at 09:00 Sodium Chloride (NS 1000 ml Inj) 1,000 ml @ 100 mls/hr Q10H IV Last administered on 01/26/17 06:00; Start 01/20/17 at 08:15; Stop 01/26/17 at 13:46 ; Status DC Prednisone (Deltasone) 20 mg BID PO Last administered on 01/20/17 09:53; Start 01/20/17 at 09:30; Stop 01/20/17 at 12:34; Status DC Epoetin Felix [id number] units 20,000 units ONCE ONCE SQ Last administered on 14:00; Start 01/20/17 at 12:45; Stop 01/20/17 at 12:46; Status DC Cefepime HCl 1000 mg/Sodium Chloride 100 ml @ 200 mls/hr Q24H IV Last administered on 01/24/17 12:59; Start 01/20/17 at 14:00; Stop 01/25/17 at 09:40 ; Status DC Vancomycin HCl/ Sodium Chloride (Vancomycin Inj/ NS 250 ml Inj) 250 ml @ 250 mls/hr ONCE ONCE IV Last administered on 01/20/17 15:16; Start 01/20/17 at 15 :00; Stop 01/20/17 at 15:59; Status DC Insulin Detemir (Levemir Inj) 5 units HS SQ Last administered on 02/01/17 20: 48; Start 01/21/17 at 21:00 Insulin Detemir (Levemir Inj) 8 units DAILY SQ ; Start 01/22/17 at 09:00; Stop 01/22/17 at 09:00; Status DC Insulin Detemir (Levemir Inj) 7 units DAILY SQ Last administered on 02/01/17 08:45; Start 01/22/17 at 09:00 Pantoprazole Sodium 40 mg 40 mg DAILY PO Last administered on 01/23/17 08:08; Start 01/22/17 at 09:00; Stop 01/23/17 at 15:28; Status DC Lactated Ringer's 1,000 ml @ 30 mls/hr Q24H PRN IV SEE LABEL COMMENTS; Start at 16:15; Stop 01/24/17 at 16:14; Status DC Sodium Chloride (NS 500 ml Inj) 500 ml @ 30 mls/hr [id number] PRN IV SEE LABEL COMMENTS; Start 01/21/17 at 16:15; Stop 01/24/17 at 16:14; Status DC Metoprolol Tartrate (Lopressor) 25 mg DELIVERY REPRESENTATIVE PRN PO SEE LABEL COMMENTS; Start 01/21/17 at 16:15; Stop 01/24/17 at 16:14; Status DC Povidone Iodine (Betadine 5% Antisepsis Kit) 1 applic DELIVERY REPRESENTATIVE PRN EACH NARE SEE LABEL COMMENTS; Start 01/21/17 at 16:15; Stop 01/24/17 at 16:14; Status DC Chlorhexidine Gluconate (Chlorhexidine 2% Cloth) 3 pack DELIVERY REPRESENTATIVE PRN TOPICAL SEE LABEL COMMENTS; Start 01/21/17 at 16:15; Stop 01/24/17 at 16:14; Status DC Insulin Human Regular (NovoLIN R INJ) See Protocol Table ... DELIVERY REPRESENTATIVE PRN SQ SEE PROTOCOL TABLE; Start 01/21/17 at 16:15; Stop 01/24/17 at 16:14; Status DC Vancomycin HCl (Vancomycin Inj) 2,000 mg Q7D IP Last administered on 01/29/17 18:00; Start 01/22/17 at 16:00; Stop 02/02/17 at 14:01; Status DC Ceftazidime 1000 mg 1,000 mg DAILY IP Last administered on 01/22/17 16:00; Start 01/22/17 at 16:00; Stop 01/25/17 at 08:32; Status DC Sodium Chloride (NS 1000 ml Inj) 1,000 ml @ 50 mls/hr Q20H IV Last administered on 01/22/17 16:30; Start 01/22/17 at 16:30; Stop 01/22/17 at 21:29 ; Status DC Insulin Aspart (NovoLOG SUPPLEMENTAL SCALE) 1 ACHS SLIDING SCALE SQ Last administered on 01/23/17 21:38; Start 01/23/17 at 16:00; Stop 01/25/17 at 08:32 ; Status DC Clonidine (Catapres) 0.1 mg TID PO Last administered on 02/03/17 17:16; Start 01/23/17 at 18:00 Pantoprazole Sodium 40 mg 40 mg Q12H IV PUSH Last administered on 01/24/17 22: 03; Start 01/23/17 at 21:00; Stop 01/25/17 at 08:32; Status DC Magnesium Sulfate/ Dextrose (Magnesium Sulfate 1 Gm Premix) 100 ml @ 100 mls/ hr ONCE ONCE IV Last administered on 01/24/17 14:43; Start 01/24/17 at 12:45 ; Stop 01/24/17 at 13:44; Status DC Insulin Aspart (NovoLOG SUPPLEMENTAL SCALE) 1 ACHS SLIDING SCALE SQ ; Start at 11:00; Stop 01/30/17 at 11:24; Status DC Pantoprazole Sodium (Protonix) 40 mg DAILY PO Last administered on 02/01/17 08 :37; Start 01/25/17 at 09:00 Propofol (Diprivan 200 Mg/20 ml Inj) 150 mg STK-MED ONCE IV ; Start 01/25/17 at 13:42; Stop 01/25/17 at 14:37; Status DC Ceftazidime (Fortaz Inj) 1,000 mg DAILY@18 IP Last administered on 02/01/17 17 :30; Start 01/25/17 at 18:00; Stop 02/05/17 at 17:59 Epoetin Felix (Epogen Inj) 20,000 units ONCE ONCE SQ Last administered on 17:13; Start 01/26/17 at 16:00; Stop 01/26/17 at 16:01; Status DC Metoprolol Tartrate (Lopressor) 12.5 mg Q12HR PO Last administered on 20:18; Start 01/27/17 at 09:00 Miscellaneous (Pill Splitter) 1 ea UNSCH PRN OTHER SEE LABEL COMMENTS; Start at 09:00 Insulin Aspart 1 1 BIDAC SQ ; Start 01/30/17 at 16:00 Sodium Chloride (NS 1000 ml Inj) 1,000 ml @ 0 mls/hr Q0M PRN IV For Prime & Rinse Back; Start 01/30/17 at 13:20 Heparin Sodium (Porcine) 8000 units 8,000 units UNSCH PRN IVF WITH DIALYSIS; Start 01/30/17 at 13:30 Sodium Chloride 1,000 ml @ 200 mls/hr Q5H PRN IV WITH DIALYSIS Last administered on 02/02/17 15:07; Start 01/30/17 at 13:20 Sodium Chloride (NS 1000 ml Inj) 1,000 ml @ 0 mls/hr Q0M PRN IV WITH DIALYSIS; Start 01/30/17 at 13:20 Mannitol (Mannitol Inj) 12.5 gm UNSCH PRN IV WITH DIALYSIS; Start 01/30/17 at 13:30 Albumin Human (Albumin 25% Inj) 25 gm UNSCH PRN IV WITH DIALYSIS; Start at 13:30 Sodium Chloride (NS Flush) 5 ml UNSCH PRN IV FLUSH WITH DIALYSIS; Start at 13:30 Heparin Sodium (Porcine) (Heparin Inj) UNSCH PRN .XX WITH DIALYSIS; Start at 13:30 Gentamicin Sulfate (Gentamicin (Dialysis) Inj) 20 mg UNSCH PRN IV WITH DIALYSIS Last administered on 02/02/17 15:08; Start 01/30/17 at 13:30 Ondansetron HCl (Zofran Inj) 4 mg UNSCH PRN IV WITH DIALYSIS; Start 01/30/17 at 13:30 Acetaminophen (Tylenol) 650 mg UNSCH PRN PO for headach, pain, temp > 101F; Start 01/30/17 at 13:30 Diphenhydramine HCl (Benadryl) 25 mg UNSCH PRN PO for hives/itching/anaphylaxis ; Start 01/30/17 at 13:30 Nitroglycerin (Nitrostat Sl) 0.4 mg UNSCH PRN SL CHEST PAIN; Start 01/30/17 at 13:30 Clonidine (Catapres) 0.1 mg UNSCH PRN PO for BP > 180/100 X 2 readings; Start 01/30/17 at 13:30 Epoetin Felix (Epogen Inj) 10,000 units UNSCH PRN IV WITH DIALYSIS Last administered on 02/02/17 15:08; Start 01/30/17 at 13:30 Gelatin (Gelfoam 12 Mm/7 Mm Top) 1 foam UNSCH PRN TOP SEE LABEL COMMENTS; Start 01/30/17 at 13:30 Temazepam (Restoril) 7.5 mg ONCE ONCE PO Last administered on 01/30/17 21:56 ; Start 01/30/17 at 20:15; Stop 01/30/17 at 20:16; Status DC Potassium Chloride (KCl) 20 meq ONCE ONCE PO Last administered on 01/31/17 13 :59; Start 01/31/17 at 13:00; Stop 01/31/17 at 13:01; Status DC Temazepam (Restoril) 7.5 mg HS PRN PO INSOMNIA Last administered on 02/01/17 23:47; Start 01/31/17 at 14:00 Midazolam HCl (Versed Inj) 5 mg STK-MED ONCE .ROUTE Last administered on 11:36; Start 02/02/17 at 11:36; Stop 02/02/17 at 11:37; Status DC Fentanyl Citrate (fentaNYL INJ) 250 mcg STK-MED ONCE .ROUTE Last administered on 02/02/17 11:36; Start 02/02/17 at 11:36; Stop 02/02/17 at 11:37; Status DC Heparin Sodium (Porcine) (*HEPARIN INJ Periprocedural ONLY) 10,000 units STK- MED ONCE .ROUTE Last administered on 02/02/17 12:25; Start 02/02/17 at 12:00; Stop 02/02/17 at 12:01; Status DC Lidocaine/ Epinephrine (Xylocaine-Epi 1%-1:100,000 Inj) 20 ml STK-MED ONCE .ROUTE Last administered on 02/02/17 12:13; Start 02/02/17 at 12:00; Stop at 12:01; Status DC Sodium Chloride (NS Flush) UNSCH PRN IVF SEE PROTOCOL; Start 02/02/17 at 13:00 Heparin Sodium (Porcine) (Heparin Inj) UNSCH PRN IV FLUSH SEE PROTOCOL; Start 02/02/17 at 13:00 Heparin Sodium (Porcine) (Heparin Inj) 20,000 units STK-MED ONCE .ROUTE ; Start 02/03/17 at 09:41; Stop 02/03/17 at 09:42; Status DC Bupivacaine HCl (Marcaine Pf 0.5% Inj) 30 ml STK-MED ONCE .ROUTE Last administered on 02/03/17 10:30; Start 02/03/17 at 09:41; Stop 02/03/17 at 09:42 ; Status DC Thrombin (Thrombin [place]) 20,000 units STK-MED ONCE .ROUTE ; Start 02/03/17 at 09:41; Stop 02/03/17 at 09:42; Status DC Protamine Sulfate (Protamine Sulfate Inj) 50 mg STK-MED ONCE .ROUTE ; Start at 09:41; Stop 02/03/17 at 09:42; Status DC Vancomycin HCl (Vancomycin Inj) 1,000 mg STK-MED ONCE .ROUTE ; Start 02/03/17 at 10:11; Stop 02/03/17 at 10:12; Status DC Fentanyl Citrate (fentaNYL INJ) 250 mcg STK-MED ONCE .ROUTE ; Start 02/03/17 at 11:25; Stop 02/03/17 at 11:26; Status DC Vancomycin HCl (Vancomycin Inj) 1,000 mg STK-MED ONCE OTHER Last administered on 02/03/17 10:20; Start 02/03/17 at 10:20; Stop 02/03/17 at 11:29; Status DC Miscellaneous Information ALL NURSING DEPARTME... UNSCH PRN .XX SEE LABEL COMMENTS; Start 02/03/17 at 11:30; Stop 02/04/17 at 11:29 Dextrose (D5W 1000 ml Inj) 150 ml @ 30 mls/hr Q5H ONCE IV Last administered on 02/04/17t 09:17; Start 02/04/17 at 09:15; Stop 02/04/17 at 14:14 A/P Assessment and Plan A/P FUO-suspected PD related peritonitis- now with no recurrent fever. Presented with abdominal pain, vomiting and diarrhea- which has resolved. CT abdomen and pelvis noncontrast with normal gallbladder, liver, pancreas. There is thickening of stomach noted on CT abd/pelvis [place] post EGD. Peritoneal fluid initially negative for SBP, but repeat sample indicative of SBP. Symptoms resolved. Echo revealed evidence of vegetation on the mitral valve. however ROBYN performed 01/21/17 and was negative for endocarditis.Blood cultures with no growth at this time. Repeat peritoneal fluid studies (third time) not indicative of peritonitis. further fever workup so far urine eosinophils(neg), rheumatoid factor(neg), SPEP (no monoclonal protein), ESR(140), CK(low) and lipase(WNL) and positive quantiferron - gallium scan with : single focal area of accumulation in the soft tissues just anterior to the right mandible with focal soft tissue swelling in this location. The bony structure of the mandible is grossly unremarkable. - repeat panculture negative to date. -ID following. End-stage renal disease on peritoneal dialysis. converted to hemodialysis- since Patient has been noncompliant with poor technique doing PD. s/p Permcath placement and s/p AVF placement. peritoneal access will be removed this afternoon. nephrology following. cleared for discharge by vascular surgery with outpatient follow-up. Hematemesis One episode 01/23/17. GI consult appreciated. - EGD showed esophagitis and gastritis. Continue PPI. Antireflux mechanisms discussed with the patient. Follow up pathology no fungal organisms. Negative for H. pylori. He has reactive gastropathy and esophagitis -continue PPI. Acute respiratory alkalosis/ COPD Alkalosis likely compensatory for metabolic acidosis. Pt was previously on prednisone, unclear if secondary to COPD. He smokes a pack every few days. Breathing is stable at this point. S/p prednisone. - smoking cessation instruction. - oxygen as needed. - encourage ambulation. Hypertension - resumed clonidine at a lower dose and amlodipine. Increase clonidine as needed. -continue to monitor BP. Chronic anemia Likely due to chronic disease. - follow CBC and transfuse as needed. Sinus tachycardia Multifactorial. TSH within normal limits. Improving continue metoprolol . -- telemetry. Diabetes mellitus overall better controlled. - low dose dose insulin sliding scale. Continue Levemir 7 units daily, 5 units HS. Secondary hyperparathyroidism due to renal disease. - Calcitriol 0.25 mg po daily, calcium acetate 667 mg po tid. PPx: Heparin Discharge Planning possible dc to SNF tomorrow if stable and cleared by consultants. Mac Suggs MD Feb 04, 2017 10:48
--- NOTE | 2017-02-04 11:14 | HHI.NPPN ---
Subjective History of Present Illness 61-year-old black male with history of end-stage renal disease, hypertension, new onset of diabetes he was admitted last time with severe hyperglycemia, he was discharge home and he said he did not know how to take insulin and has not taken insulin him back with some abdominal pain, hyperglycemia and received peritoneal dialysis culture has been pending total WBC count was 120 with only 8 % neutrophils. Review of Systems General Constitutional: Fever, Fatigue Cardiovascular Cardiac: AGUILAR Objective Data Data 02/03/17 02/04/17 19:00 07:00 Intake Total 560 ml 0 ml Output Total 20 ml 0 ml Balance 540 ml 0 ml Intake Oral 360 ml 0 ml IV Total 0 ml Other 200 ml Output Urine Total 0 ml 0 ml Estimated Blood Loss 20 ml # Voids 0 # Bowel Movements 0 0 Vital Signs Date Time Temp Pulse Resp B/P Pulse Ox O2 Delivery O2 Flow Rate FiO2 02/04/17 08:00 97.9 103 20 114/69 98 02/04/17 04:00 98.0 97 16 111/70 98 02/04/17 04:00 Room Air 02/04/17 00:00 Room Air 02/04/17 00:00 98.3 99 16 112/69 94 02/03/17 20:00 Room Air 02/03/17 20:00 103 02/03/17 20:00 98.0 104 19 122/73 100 02/03/17 16:00 98.5 118 20 113/76 97 02/03/17 12:35 97.7 104 20 119/78 98 02/03/17 12:22 98.0 96 16 115/67 100 Room Air 02/03/17 12:00 98 15 120/70 100 Room Air 02/03/17 11:45 98 16 118/70 100 Nasal Cannula 2 02/03/17 11:30 102 15 114/75 100 Nasal Cannula 2 02/03/17 11:22 99.1 105 15 111/75 100 Nasal Cannula 2 -: 02/03/17 0919 02/04/17 0641 Physical Exam General Appearance: Well Nourished, No Acute Distress, Comfortable Eyes Eye Exam: Pupils Equal Throat Throat Exam: Oral Mucosa [place] & Moist Neck Neck Exam: Neck Supple Pulmonary Resp Exam: Breath Sounds Equal, No Distress, Decreased Bases Cardiology CV Exam: Tachycardia Gastrointestinal/Abdomen GI Exam: Soft, Non-Tender, Bowel Sounds Present, Distended (with PD catheter in place.) Extremeties Extremities Exam: Trace Edema Neurologic Neuro Exam: Alert, Awake, Oriented Psychiatric Psych Exam: Appropriate Responses Assessment/Plan Problem List: (1) ESRD (end stage renal disease) Plan: on hemodialysis via P/C Cultures have been negative. social issues seen during hemodialysis UF 2.5 L Vascular AVF placement need PD catheter out as febrile on and off schedule for tomorrow and had issues with improper technique possible infection appreciate Dr. Chris assistance TB test weakly positive PPD in clinic October 29 negative December 04 negative ID can be followed as out patient no obvious source of infection FU as out patient (2) HTN (hypertension) Plan: Continue to monitor (3) Diabetic hyperosmolar non-ketotic state Plan: Blood sugar is acceptable. Problem Qualifiers (1) HTN (hypertension): Qualified Code: I10 - Essential hypertension Ned Sosa MD Feb 04, 2017 11:14
[2017-02-04] MEDS ORDERED: NEOSTIGMINE METHYLSULFATE 10 MG/10 ML VIAL IV PUSH ONE (12:00)
[2017-02-04] MEDS ORDERED: ePHEDrine/NS 25 MG/5 ML SYR IV ONE (12:00)
[2017-02-04] MEDS ORDERED: ONDANSETRON HCL 4 MG/2 ML VIAL IV PUSH ONE (12:00)
[2017-02-04] MEDS ORDERED: PHENYLEPH/NS 1000 MCG/10 ML SYR IV ONE (12:00)
[2017-02-04] MEDS ORDERED: PROPOFOL 200 MG/20 ML AMP IV ONE (12:00)
[2017-02-04] MEDS: GENTAMICIN SULFATE (DIALYSIS USE ONLY) 20 MG/2 ML VIAL IV PRN (12:26)
[2017-02-04] MEDS: EPOETIN ALFA 10,000 UNITS/ML VIAL IV PRN (12:27)
[2017-02-04] MEDS: amLODIPine BESYLATE 5 MG TAB PO SCH ×2 (13:16→22:17)
[2017-02-04] MEDS: METOPROLOL TARTRATE 25 MG TAB PO SCH ×2 (13:16→21:00)
--- NOTE | 2017-02-04 14:32 | HHI.PR ---
Addendum to Inpatient Note Additional Information Pt is off the floor For [place] removal today he is completing abx today Fever resolved His quatiferron needs to be serially followed before making a decision on LTBI tx + discrepancy between PPD and quantiferron anticipate d/c tomoorrow with no abx Tosha Mitchell MD Feb 04, 2017 14:32
[2017-02-04] MEDS ORDERED: FAMOTIDINE 20 MG/2 ML VIAL ONE (15:58)
[2017-02-04] MEDS ORDERED: BUPIVACAINE HCL PF 0.5% 30 ML VIAL ONE (16:18)
[2017-02-04] MEDS ORDERED: LIDOCAINE 1%/EPINEPHrine 1:100,000 SOLN 30 ML VIAL INFIL ONE (16:35)
[2017-02-04] MEDS ORDERED: SUGAMMADEX SODIUM 200 MG/2 ML VIAL IV PUSH ONE ×2 (16:46)
--- NOTE | 2017-02-04 16:59 | PD.OP ---
Operative Report Date of Surgery: Feb 04, 2017 Preoperative Diagnosis: inability to use PD catheter, desire for removal Postoperative Diagnosis: same Procedure: removal PD catheter Anesthesia: general Surgeon: Darnell Chris Peace Officer(s): Annabelle Operation and Findings: removal entire PD catheter. EBL less than 5 ml. Darnell Chris MD Feb 04, 2017 16:59
[2017-02-04] MEDS ORDERED: DO NOT ADM ANY ANTICOAGULANT DRUGS PRN (17:01)
[2017-02-04] MEDS ORDERED: fentaNYL CITRATE 250 MCG/5 ML AMP ONE (17:06)
[2017-02-04] MEDS ORDERED: MIDAZOLAM HCL 2 MG/2 ML VIAL ONE (17:06)
[2017-02-04] MEDS: ACETAMINOPHEN/HYDROcodone 325 MG/5 MG TAB PO PRN (18:19)
[2017-02-05 03:50] VITALS: BP 99/65; PULSE 107; RESP 16; TEMP 98.5; O2SAT 98
[2017-02-05] MEDS: CHLORHEXIDINE GLUCONATE 2 % 1 PACK (2 CLOTHS) TOP SCH (04:00)
[2017-02-05] MEDS: ACETAMINOPHEN/HYDROcodone 325 MG/5 MG TAB PO PRN (04:03)
[2017-02-05 08:00] VITALS: BP 109/67; PULSE 105; PULSE 109; RESP 18; TEMP 98.3; O2SAT 100
[2017-02-05] MEDS: cloNIDine HCL 0.1 MG TAB PO SCH (09:00)
[2017-02-05] MEDS: HEPARIN SODIUM - SQ 10,000 UNITS/ML VIAL SQ SCH (09:00)
[2017-02-05] MEDS: SODIUM CHLORIDE 0.9% FLUSH 10 ML FLUSH SCH (09:28)
[2017-02-05] MEDS: amLODIPine BESYLATE 5 MG TAB PO SCH (09:29)
[2017-02-05] MEDS: METOPROLOL TARTRATE 25 MG TAB PO SCH (09:29)
[2017-02-05] MEDS: CALCIUM ACETATE 667 MG CAP PO SCH (09:29)
[2017-02-05] MEDS: PANTOPRAZOLE SOD 40 MG DELAYED RELEASE TAB PO SCH (09:29)
[2017-02-05] MEDS: DOCUSATE SODIUM 50 MG/SENNA 8.6 MG TAB PO SCH (09:29)
[2017-02-05] MEDS: THIAMINE HCL 100 MG TAB PO SCH (09:29)
[2017-02-05] MEDS: CALCITRIOL 0.25 MCG CAP PO SCH (09:29)
[2017-02-05] MEDS: INSULIN DETEMIR 100 UNITS/ML VIAL SQ SCH (09:32)
[2017-02-05 10:56] VITALS: O2SAT 98
[2017-02-05] MEDS: INSULIN ASPART SUPPLEMENTAL SCALE SQ SCH (11:00)
--- NOTE | 2017-02-05 11:08 | HHI.PR ---
Subjective Subjective Notes up.walking around room. Not too sore. Objective Vitals/I&O Vital Signs Date Time Temp Pulse Resp B/P Pulse Ox O2 Delivery O2 Flow Rate FiO2 02/05/17 10:56 98 21 02/05/17 08:00 98.3 109 18 109/67 02/05/17 00:00 Room Air 02/04/17 17:00 2 Abdomen: Non-distended, Non-tender, Other (3 incision sites healing well, no erythema or drainage.) A/P Assessment and Plan POD 1 s/p removal PD catheter. Doing well from removal PD catheter standpoint. Discussed with patient wound care, OK to shower normally. Steristrips can come off in 7-10 days. As long as everything heals up fine, no need to see in office. Will sign off, please call as needed. Thank you. Darnell Chris MD Feb 05, 2017 11:08
--- NOTE | 2017-02-05 11:21 | MP ---
cc: JASON FUENTES MD DATE OF SURGERY 02/03/2017 PREOPERATIVE DIAGNOSIS End-stage renal disease needs dialysis access POSTOPERATIVE DIAGNOSIS End-stage renal disease needs dialysis access PROCEDURE Left brachial artery to brachial vein arteriovenous fistula. PROCEDURE Informed consent obtained from the patient. He was taken to the operating room, placed supine on the operating table and appropriate time-out was taken to ensure the patient's identity, operative site and the planned procedure. The administration of a gram of vancomycin was initiated prior to the skin incision and will be discontinued after a single preoperative dose. Vancomycin was chosen because of the patient's end-stage renal disease. Everyone in the room agreed with the time-out and we proceeded. An incision was made along the distal aspect of his upper arm, carried down through the subcutaneous tissue with electrocautery. The brachial artery was identified and juxtaposed to this was a very large brachial vein. This was felt be adequate for suitable autogenous access and as such the patient this plan was transitioned from a non-autogenous access to an autogenous access. The brachial vein was dissected free. The distal end was clamped with a right angle. The vein was transected, marked for orientation and the distal end was oversewn with 3-0 silk. The brachial artery was dissected free. The patient was systemically heparinized. Proximal and distal control of the brachial artery was obtained with profunda clamps and a longitudinal arteriotomy was made with an 11 blade, extended with Benito scissors. The vein was spatulated and sewn end-to-side with running 6-0 Prolene suture. At the completion, it was flushed and noted to be hemostatic. There was a wonderful thrill in the fistula and a nice Doppler signal in the wrist. The heparin was reversed with protamine. The wound was irrigated and made hemostatic, infiltrated with Marcaine and closed with 2-0 Polysorb, 3-0 Polysorb and 4-0 Monocryl. The sponge and needle counts were correct at the end of the case. I was present and scrubbed and performed the entire procedure. Jason Fuentes MD RJF/DJL /8:18 PM /11:20 AM
--- NOTE | 2017-02-05 11:30 | HHI.PR ---
Subjective Remarks resting comfortably with no distress. denies pain, sob, abdominal pain. no new complaints. Objective Vitals Vital Signs Date Time Temp Pulse Resp B/P Pulse Ox O2 Delivery O2 Flow Rate FiO2 02/05/17 10:56 98 21 02/05/17 08:00 98.3 109 18 109/67 100 02/05/17 03:50 98.5 107 16 99/65 98 02/05/17 00:00 Room Air 02/04/17 23:18 98.1 103 16 102/64 98 02/04/17 20:00 Room Air 02/04/17 20:00 108 02/04/17 19:38 98.1 108 16 95/64 97 02/04/17 18:11 98.3 113 20 130/74 98 02/04/17 17:34 21 02/04/17 17:15 110 16 112/68 100 Room Air 02/04/17 17:00 109 16 121/68 100 Nasal Cannula 2 02/04/17 16:58 97.5 108 16 118/73 100 Nasal Cannula 2 02/04/17 16:00 98.7 104 20 109/72 99 02/04/17 13:37 98.8 119 20 109/72 97 02/04/17 11:44 98 21 I/O 02/04/17 02/04/17 02/04/17 02/05/17 02/05/17 02/05/17 07:00 15:00 23:00 07:00 15:00 23:00 Intake Total 0 ml 0 ml 480 ml 0 ml Output Total 0 ml 2300 ml 100 ml 0 ml Balance 0 ml -2300 ml 380 ml 0 ml Intake Oral 0 ml 0 ml 480 ml 0 ml Output Urine Total 0 ml 300 ml 100 ml 0 ml Hemodialysis 2000 ml # Bowel Movements 0 0 0 Result Diagram: 02/03/17 0919 02/04/17 0641 Imaging Last Impressions Chest CT 02/03/17 0000 Signed Impressions: Service Date/Time: Friday, February 03, 2017 19:50 - CONCLUSION: 1. Minimal bilateral pleural effusions with atelectasis or consolidation at the bases. 2. Mild emphysematous change. 3. Mild ascites around the liver. Juan Lemon MD Catheter Placement X-Ray 02/02/17 0000 Signed Impressions: Service Date/Time: Thursday, February 02, 2017 11:44 - CONCLUSION: Uncomplicated PermaCath placement as above. González Mederos MD Upper Extremity Ultrasound 01/29/17 0000 Signed Impressions: Service Date/Time: January 17:57 - CONCLUSION: Negative exam with no evidence of deep venous thrombosis. Saud Kowalski MD Gallium Scan Nuclear Medicine 01/29/17 0000 Signed Impressions: Service Date/Time: January 00:00 - CONCLUSION: Single focal area of accumulation in the soft tissues just anterior to the right mandible. There is focal soft tissue swelling in this location. The bony structure of the mandible is grossly unremarkable. Joce De Luna MD Chest X-Ray 01/23/17 Signed Impressions: Service Date/Time: Monday, January 23, 2017 11:42 - CONCLUSION: 1. No acute abnormality or significant interval change. González Mederos MD Lung Scan-VQ Nuclear Medicine 01/16/17 Signed Impressions: Service Date/Time: Monday, January 16, 2017 15:38 - CONCLUSION: Low probability for pulmonary embolism. Edgardo Goldstein MD FACR Lower Extremity Ultrasound 01/16/17 Signed Impressions: Service Date/Time: Monday, January 16, 2017 08:17 - CONCLUSION: Normal examination. Satinder Khanna Jr., MD Abdomen/Pelvis CT 01/15/17 0000 Signed Impressions: Service Date/Time: January 22:54 - CONCLUSION: 1. Patient is on peritoneal dialysis. There is small moderate ascites, increased from before. No loculated fluid. 2. Decreased gastric wall thickening, now mild. Nasogastric tube has been removed. 3. No obstruction or perceptible acute inflammatory changes seen of the gastrointestinal tract. Juan Mercado MD Objective Remarks GENERAL: in no apparent distress. CARDIOVASCULAR: Regular rate and regular rhythm without murmurs, gallops, or rubs. RESPIRATORY: Clear to auscultation. Breath sounds equal bilaterally. No wheezes , rales, or rhonchi. GASTROINTESTINAL: Abdomen soft, non-tender, nondistended. Normal, active bowel sounds- peritoneal dialysis access in place. MUSCULOSKELETAL: Extremities without clubbing, cyanosis, or edema. NEURO: Alert & Oriented x4 to person, place, time, situation. Moves all ext x4 Procedures EGD permacath placement AVF placement removal of peritoneal dialysis access Medications and IVs Current Medications Sodium Chloride (NS 1000 ml Inj) 1,000 ml @ 1,000 mls/hr Q1H IV Last administered on 01/15/17 21:22; Start 01/15/17 at 20:57; Stop 01/15/17 at 21:56; Status DC Insulin Human Regular 10 units 10 units ONCE ONCE SQ Last administered on 21:22; Start 01/15/17 at 21:00; Stop 01/15/17 at 21:01; Status DC Vancomycin HCl 1000 mg/Sodium Chloride 250 ml @ 250 mls/hr ONCE ONCE IV Last administered on 01/15/17 22:43; Start 01/15/17 at 22:30; Stop 01/15/17 at 23:29; Status DC Ampicillin Sodium/ Sulbactam Sodium/ Sodium Chloride (Unasyn Inj/NS Inj) 100 ml @ 200 mls/hr ONCE ONCE IV Last administered on 01/15/17 21:53; Start 01/15/17 at 21:45; Stop 01/15/17 at 22:14; Status DC Acetaminophen 650 mg 650 mg ONCE ONCE PO Last administered on 01/15/17 21:53; Start 01/15/17 at 21:45; Stop 01/15/17 at 21:46; Status DC Sodium Chloride (NS 1000 ml Inj) 1,000 ml @ 1,000 mls/hr Q1H IV Last administered on 01/15/17 22:43; Start 01/15/17 at 22:05; Stop 01/15/17 at 23:04; Status DC Heparin Sodium (Porcine) (Heparin Inj) 1,000 units WITH DIALYSIS PRN XX SEE LABEL COMMENTS; Start 01/15/17 at 22:30 Sodium Chloride (NS Flush) 10 ml UNSCH PRN IV FLUSH SEE LABEL COMMENTS; Start 01/15/17 at 22:30 Vancomycin HCl (Vancomycin Inj) 2,000 mg Q7D IP Last administered on 01/15/17 23:34; Start 01/15/17 at 22:30; Stop 01/16/17 at 10:45; Status DC Ceftazidime (Fortaz Inj) 1,000 mg DAILY IP Last administered on 01/16/17 08:03 ; Start 01/16/17 at 09:00; Stop 01/16/17 at 10:45; Status DC Ceftazidime (Fortaz Inj) 1,000 mg NOW IP Last administered on 01/15/17 23:34; Start 01/15/17 at 23:15; Stop 01/16/17 at 00:45; Status DC Sodium Chloride (NS Flush) 2 ml UNSCH PRN .XX FLUSH AFTER USING IV ACCESS; Start 01/15/17 at 23:30 Sodium Chloride (NS Flush) 2 ml BID .XX Last administered on 02/05/17 09:28; Start 01/16/17 at 09:00 Acetaminophen (Tylenol) 650 mg Q6H PRN PO PAIN 1-10 AND/OR FEVER >101F Last administered on 01/29/17 22:34; Start 01/15/17 at 23:30 Pantoprazole Sodium (Protonix Inj) 40 mg DAILY IV Last administered on 09:35; Start 01/16/17 at 09:00; Stop 01/21/17 at 09:41; Status DC Ondansetron HCl (Zofran Inj) 4 mg Q6H PRN IV NAUSEA OR VOMITING Last administered on 02/02/17 15:07; Start 01/15/17 at 23:30 Albuterol/ Ipratropium (Duoneb Neb) 1 ampule Q6HR NEB INH Last administered on 01/19/17 19:09; Start 01/16/17 at 04:00; Stop 01/20/17 at 04:00; Status DC Albuterol Sulfate (Albuterol Neb) 2.5 mg Q2HR NEB PRN INH SOB/WHEEZING; Start 01/15/17 at 23:30 Miscellaneous Information 1 Q361D XX Last administered on 01/15/17 23:30; Start 01/15/17 at 23:30 Chlorhexidine Gluconate (Chlorhexidine 2% Cloth) 3 pack Taper DAILY@04 TOP Last administered on 01/18/17 04:00; Start 01/16/17 at 04:00; Stop 01/12/18 at 03 :59 Chlorhexidine Gluconate (Chlorhexidine 2% Cloth) 3 pack UNSCH PRN TOP HYGIENIC CARE; Start 01/15/17 at 23:30 Senna/Docusate Sodium (Jessica-Colace) 1 tab BID PO Last administered on 09:29; Start 01/16/17 at 09:00 Magnesium Hydroxide (Milk Of Magnesia Liq) 30 ml Q12H PRN PO MILD - MODERATE CONSTIPATION; Start 01/15/17 at 23:30; Stop 01/25/17 at 08:32; Status DC Sennosides (Senokot) 17.2 mg Q12H PRN PO MODERATE - SEVERE CONSTIPATION; Start 01/15/17 at 23:30 Bisacodyl (Dulcolax Supp) 10 mg DAILY PRN RECTAL SEVERE CONSITIPATION; Start at 23:30 Lactulose (Lactulose Liq) 30 ml DAILY PRN PO SEVERE CONSITIPATION; Start at 23:30 Dextrose (D50w (Vial) Inj) 50 ml UNSCH PRN IV HYPOGLYCEMIA-SEE COMMENTS; Start 01/15/17 at 23:45; Stop 01/19/17 at 11:22; Status DC Glucagon (Glucagon Inj) 1 mg UNSCH PRN OTHER HYPOGLYCEMIA-SEE COMMENTS; Start 01/15/17 at 23:45; Stop 01/19/17 at 11:22; Status DC Insulin Aspart (NovoLOG SUPPLEMENTAL SCALE) 1 Q4H SQ Last administered on 11:45; Start 01/15/17 at 23:45; Stop 01/18/17 at 15:42; Status DC Lactulose (Lactulose Liq) 30 ml ONCE ONCE PO Last administered on 01/16/17 00: 44; Start 01/15/17 at 23:45; Stop 01/15/17 at 23:54; Status DC Amlodipine Besylate (Norvasc) 5 mg BID PO Last administered on 02/05/17 09:29 ; Start 01/16/17 at 09:00 Calcitriol (Rocaltrol) 0.25 mcg DAILY PO Last administered on 02/05/17 09:29; Start 01/16/17 at 09:00 Calcium Acetate (Phoslo) 667 mg TID PO Last administered on 02/05/17 09:29; Start 01/16/17 at 09:00 Clonidine (Catapres) 0.3 mg TID PO Last administered on 01/19/17 17:14; Start 01/16/17 at 09:00; Stop 01/23/17 at 15:24; Status DC Labetalol HCl (Trandate Inj) 10 mg Q4H PRN IV PUSH SBP >170 Last administered on 01/22/17 16:00; Start 01/16/17 at 00:15 Insulin Detemir 5 units 5 units ONCE SQ Last administered on 01/16/17 00:46; Start 01/16/17 at 00:15; Stop 01/16/17 at 02:00; Status DC Ceftazidime/ Sodium Chloride (Fortaz Inj/NS Inj) 100 ml @ 200 mls/hr ONCE ONCE IV Last administered on 01/16/17 03:43; Start 01/16/17 at 04:00; Stop at 04:29; Status DC Clonidine (Catapres) 0.3 mg ONCE ONCE PO Last administered on 01/16/17 04:47; Start 01/16/17 at 04:45; Stop 01/16/17 at 04:46; Status DC Heparin Sodium (Porcine) (Heparin Inj) 5,000 units Q12HR SQ Last administered on 02/05/17 09:00; Start 01/16/17 at 09:00 Acetaminophen/ Hydrocodone Bitart ([place] 5-325 Mg) 1 tab Q6H PRN PO PAIN Last administered on 02/05/17 04:03; Start 01/16/17 at 05:15 Morphine Sulfate (Morphine Inj) 2 mg Q3H PRN IV PUSH BREAKTHROUGH PAIN; Start 01/16/17 at 05:15 Potassium Chloride (KCl) 20 meq Q12HR PO Last administered on 01/20/17 00:29; Start 01/16/17 at 10:45; Status Hold Insulin Aspart (NovoLOG SUPPLEMENTAL SCALE) 1 ACHS SLIDING SCALE SQ Last administered on 01/19/17 06:21; Start 01/18/17 at 16:00; Stop 01/19/17 at 11:08 ; Status DC Insulin Detemir 5 units 5 units Q12HR SQ Last administered on 01/20/17 22:11; Start 01/19/17 at 12:00; Stop 01/21/17 at 09:18; Status DC Cefepime HCl/ Sodium Chloride (Maxipime Inj/NS Inj) 100 ml @ 200 mls/hr ONCE ONCE IV Last administered on 01/19/17 11:47; Start 01/19/17 at 12:00; Stop 07/26 at 12:29; Status DC Dextrose (D50w (Vial) Inj) 50 ml UNSCH PRN IV HYPOGLYCEMIA-SEE COMMENTS; Start 01/19/17 at 11:15 Glucagon (Glucagon Inj) 1 mg UNSCH PRN OTHER HYPOGLYCEMIA-SEE COMMENTS; Start 01/19/17 at 11:15 Insulin Human Regular (NovoLIN R SUPPLEMENTAL SCALE) 1 ACHS SLIDING SCALE SQ ; Start 01/19/17 at 16:00; Stop 01/19/17 at 16:00; Status DC Insulin Human Regular (NovoLIN R SUPPLEMENTAL SCALE) 1 ACHS SLIDING SCALE SQ Last administered on 01/23/17 12:49; Start 01/19/17 at 14:00; Stop 01/23/17 at 15:17; Status DC Thiamine HCl (Vitamin B1) 100 mg ONCE ONCE PO Last administered on 01/19/17 18:11; Start 01/19/17 at 17:45; Stop 01/19/17 at 17:46; Status DC Thiamine HCl 100 mg 100 mg DAILY PO Last administered on 02/05/17 09:29; Start 01/20/17 at 09:00 Sodium Chloride (NS 1000 ml Inj) 1,000 ml @ 100 mls/hr Q10H IV Last administered on 01/26/17 06:00; Start 01/20/17 at 08:15; Stop 01/26/17 at 13:46 ; Status DC Prednisone (Deltasone) 20 mg BID PO Last administered on 01/20/17 09:53; Start 01/20/17 at 09:30; Stop 01/20/17 at 12:34; Status DC Epoetin Felix 96717 units 20,000 units ONCE ONCE SQ Last administered on 14:00; Start 01/20/17 at 12:45; Stop 01/20/17 at 12:46; Status DC Cefepime HCl 1000 mg/Sodium Chloride 100 ml @ 200 mls/hr Q24H IV Last administered on 01/24/17 12:59; Start 01/20/17 at 14:00; Stop 01/25/17 at 09:40 ; Status DC Vancomycin HCl/ Sodium Chloride (Vancomycin Inj/ NS 250 ml Inj) 250 ml @ 250 mls/hr ONCE ONCE IV Last administered on 01/20/17 15:16; Start 01/20/17 at 15 :00; Stop 01/20/17 at 15:59; Status DC Insulin Detemir (Levemir Inj) 5 units HS SQ Last administered on 02/01/17 20: 48; Start 01/21/17 at 21:00 Insulin Detemir (Levemir Inj) 8 units DAILY SQ ; Start 01/22/17 at 09:00; Stop 01/22/17 at 09:00; Status DC Insulin Detemir (Levemir Inj) 7 units DAILY SQ Last administered on 02/05/17 09:32; Start 01/22/17 at 09:00 Pantoprazole Sodium 40 mg 40 mg DAILY PO Last administered on 01/23/17 08:08; Start 01/22/17 at 09:00; Stop 01/23/17 at 15:28; Status DC Lactated Ringer's 1,000 ml @ 30 mls/hr Q24H PRN IV SEE LABEL COMMENTS; Start at 16:15; Stop 01/24/17 at 16:14; Status DC Sodium Chloride (NS 500 ml Inj) 500 ml @ 30 mls/hr [id number] PRN IV SEE LABEL COMMENTS; Start 01/21/17 at 16:15; Stop 01/24/17 at 16:14; Status DC Metoprolol Tartrate (Lopressor) 25 mg [employer] PRN PO SEE LABEL COMMENTS; Start 01/21/17 at 16:15; Stop 01/24/17 at 16:14; Status DC Povidone Iodine (Betadine 5% Antisepsis Kit) 1 applic [employer] PRN EACH NARE SEE LABEL COMMENTS; Start 01/21/17 at 16:15; Stop 01/24/17 at 16:14; Status DC Chlorhexidine Gluconate (Chlorhexidine 2% Cloth) 3 pack [employer] MA[employer]ER PRN TOPICAL SEE LABEL COMMENTS; Start 01/21/17 at 16:15; Stop 01/24/17 at 16:14; Status DC Insulin Human Regular (NovoLIN R INJ) See Protocol Table ... [employer] TE[employer]ER PRN SQ SEE PROTOCOL TABLE; Start 01/21/17 at 16:15; Stop 01/24/17 at 16:14; Status DC Vancomycin HCl (Vancomycin Inj) 2,000 mg Q7D IP Last administered on 01/29/17 18:00; Start 01/22/17 at 16:00; Stop 02/02/17 at 14:01; Status DC Ceftazidime 1000 mg 1,000 mg DAILY IP Last administered on 01/22/17 16:00; Start 01/22/17 at 16:00; Stop 01/25/17 at 08:32; Status DC Sodium Chloride (NS 1000 ml Inj) 1,000 ml @ 50 mls/hr Q20H IV Last administered on 01/22/17 16:30; Start 01/22/17 at 16:30; Stop 01/22/17 at 21:29 ; Status DC Insulin Aspart (NovoLOG SUPPLEMENTAL SCALE) 1 ACHS SLIDING SCALE SQ Last administered on 01/23/17 21:38; Start 01/23/17 at 16:00; Stop 01/25/17 at 08:32 ; Status DC Clonidine (Catapres) 0.1 mg TID PO Last administered on 02/04/17 18:17; Start 01/23/17 at 18:00 Pantoprazole Sodium 40 mg 40 mg Q12H IV PUSH Last administered on 01/24/17 22: 03; Start 01/23/17 at 21:00; Stop 01/25/17 at 08:32; Status DC Magnesium Sulfate/ Dextrose (Magnesium Sulfate 1 Gm Premix) 100 ml @ 100 mls/ hr ONCE ONCE IV Last administered on 01/24/17 14:43; Start 01/24/17 at 12:45 ; Stop 01/24/17 at 13:44; Status DC Insulin Aspart (NovoLOG SUPPLEMENTAL SCALE) 1 ACHS SLIDING SCALE SQ ; Start at 11:00; Stop 01/30/17 at 11:24; Status DC Pantoprazole Sodium (Protonix) 40 mg DAILY PO Last administered on 02/05/17 09 :29; Start 01/25/17 at 09:00 Propofol (Diprivan 200 Mg/20 ml Inj) 150 mg STK-MED ONCE IV ; Start 01/25/17 at 13:42; Stop 01/25/17 at 14:37; Status DC Ceftazidime (Fortaz Inj) 1,000 mg DAILY@18 IP Last administered on 02/01/17 17 :30; Start 01/25/17 at 18:00; Stop 02/05/17 at 17:59 Epoetin Felix (Epogen Inj) 20,000 units ONCE ONCE SQ Last administered on 17:13; Start 01/26/17 at 16:00; Stop 01/26/17 at 16:01; Status DC Metoprolol Tartrate (Lopressor) 12.5 mg Q12HR PO Last administered on 09:29; Start 01/27/17 at 09:00 Miscellaneous (Pill Splitter) 1 ea UNSCH PRN OTHER SEE LABEL COMMENTS; Start at 09:00 Insulin Aspart 1 1 BIDAC SQ Last administered on 02/04/17 17:10; Start at 16:00 Sodium Chloride (NS 1000 ml Inj) 1,000 ml @ 0 mls/hr Q0M PRN IV For Prime & Rinse Back; Start 01/30/17 at 13:20 Heparin Sodium (Porcine) 8000 units 8,000 units UNSCH PRN IVF WITH DIALYSIS; Start 01/30/17 at 13:30 Sodium Chloride 1,000 ml @ 200 mls/hr Q5H PRN IV WITH DIALYSIS Last administered on 02/02/17 15:07; Start 01/30/17 at 13:20 Sodium Chloride (NS 1000 ml Inj) 1,000 ml @ 0 mls/hr Q0M PRN IV WITH DIALYSIS; Start 01/30/17 at 13:20 Mannitol (Mannitol Inj) 12.5 gm UNSCH PRN IV WITH DIALYSIS; Start 01/30/17 at 13:30 Albumin Human (Albumin 25% Inj) 25 gm UNSCH PRN IV WITH DIALYSIS; Start at 13:30 Sodium Chloride (NS Flush) 5 ml UNSCH PRN IV FLUSH WITH DIALYSIS; Start at 13:30 Heparin Sodium (Porcine) (Heparin Inj) UNSCH PRN .XX WITH DIALYSIS Last administered on 02/04/17 12:27; Start 01/30/17 at 13:30 Gentamicin Sulfate (Gentamicin (Dialysis) Inj) 20 mg UNSCH PRN IV WITH DIALYSIS Last administered on 02/04/17 12:26; Start 01/30/17 at 13:30 Ondansetron HCl (Zofran Inj) 4 mg UNSCH PRN IV WITH DIALYSIS; Start 01/30/17 at 13:30 Acetaminophen (Tylenol) 650 mg UNSCH PRN PO for headach, pain, temp > 101F; Start 01/30/17 at 13:30 Diphenhydramine HCl (Benadryl) 25 mg UNSCH PRN PO for hives/itching/anaphylaxis ; Start 01/30/17 at 13:30 Nitroglycerin (Nitrostat Sl) 0.4 mg UNSCH PRN SL CHEST PAIN; Start 01/30/17 at 13:30 Clonidine (Catapres) 0.1 mg UNSCH PRN PO for BP > 180/100 X 2 readings; Start 01/30/17 at 13:30 Epoetin Felix (Epogen Inj) 10,000 units UNSCH PRN IV WITH DIALYSIS Last administered on 02/04/17 12:27; Start 01/30/17 at 13:30 Gelatin (Gelfoam 12 Mm/7 Mm Top) 1 foam UNSCH PRN TOP SEE LABEL COMMENTS; Start 01/30/17 at 13:30 Temazepam (Restoril) 7.5 mg ONCE ONCE PO Last administered on 01/30/17 21:56 ; Start 01/30/17 at 20:15; Stop 01/30/17 at 20:16; Status DC Potassium Chloride (KCl) 20 meq ONCE ONCE PO Last administered on 01/31/17 13 :59; Start 01/31/17 at 13:00; Stop 01/31/17 at 13:01; Status DC Temazepam (Restoril) 7.5 mg HS PRN PO INSOMNIA Last administered on 02/01/17 23:47; Start 01/31/17 at 14:00 Midazolam HCl (Versed Inj) 5 mg STK-MED ONCE .ROUTE Last administered on 11:36; Start 02/02/17 at 11:36; Stop 02/02/17 at 11:37; Status DC Fentanyl Citrate (fentaNYL INJ) 250 mcg STK-MED ONCE .ROUTE Last administered on 02/02/17 11:36; Start 02/02/17 at 11:36; Stop 02/02/17 at 11:37; Status DC Heparin Sodium (Porcine) (*HEPARIN INJ Periprocedural ONLY) 10,000 units STK- MED ONCE .ROUTE Last administered on 02/02/17 12:25; Start 02/02/17 at 12:00; Stop 02/02/17 at 12:01; Status DC Lidocaine/ Epinephrine (Xylocaine-Epi 1%-1:100,000 Inj) 20 ml STK-MED ONCE .ROUTE Last administered on 02/02/17 12:13; Start 02/02/17 at 12:00; Stop at 12:01; Status DC Sodium Chloride (NS Flush) UNSCH PRN IVF SEE PROTOCOL; Start 02/02/17 at 13:00 Heparin Sodium (Porcine) (Heparin Inj) UNSCH PRN IV FLUSH SEE PROTOCOL; Start 02/02/17 at 13:00 Heparin Sodium (Porcine) (Heparin Inj) 20,000 units STK-MED ONCE .ROUTE ; Start 02/03/17 at 09:41; Stop 02/03/17 at 09:42; Status DC Bupivacaine HCl (Marcaine Pf 0.5% Inj) 30 ml STK-MED ONCE .ROUTE Last administered on 02/03/17 10:30; Start 02/03/17 at 09:41; Stop 02/03/17 at 09:42 ; Status DC Thrombin (Thrombin Top [place]) 20,000 units STK-MED ONCE .ROUTE ; Start 02/03/17 at 09:41; Stop 02/03/17 at 09:42; Status DC Protamine Sulfate (Protamine Sulfate Inj) 50 mg STK-MED ONCE .ROUTE ; Start at 09:41; Stop 02/03/17 at 09:42; Status DC Vancomycin HCl (Vancomycin Inj) 1,000 mg STK-MED ONCE .ROUTE ; Start 02/03/17 at 10:11; Stop 02/03/17 at 10:12; Status DC Fentanyl Citrate (fentaNYL INJ) 250 mcg STK-MED ONCE .ROUTE ; Start 02/03/17 at 11:25; Stop 02/03/17 at 11:26; Status DC Vancomycin HCl (Vancomycin Inj) 1,000 mg STK-MED ONCE OTHER Last administered on 02/03/17 10:20; Start 02/03/17 at 10:20; Stop 02/03/17 at 11:29; Status DC Miscellaneous Information ALL NURSING DEPARTME... UNSCH PRN .XX SEE LABEL COMMENTS; Start 02/03/17 at 11:30; Stop 02/04/17 at 11:29; Status DC Dextrose (D5W 1000 ml Inj) 150 ml @ 30 mls/hr Q5H ONCE IV Last administered on 02/04/17t 09:17; Start 02/04/17 at 09:15; Stop 02/04/17 at 14:14; Status DC Famotidine (Pepcid Inj) 20 mg STK-MED ONCE .ROUTE ; Start 02/04/17 at 15:58; Stop 02/04/17 at 15:59; Status DC Bupivacaine HCl (Marcaine Pf 0.5% Inj) 30 ml STK-MED ONCE .ROUTE ; Start at 16:18; Stop 02/04/17 at 16:19; Status DC Lidocaine/ Epinephrine (Xylocaine-Epi 1%-1:100,000 Inj) 30 ml STK-MED ONCE INFIL Last administered on 02/04/17t 16:35; Start 02/04/17 at 16:35; Stop 02/04 at 16:48; Status DC Sugammadex Sodium (Bridion Inj) 200 mg STK-MED ONCE IV PUSH ; Start 02/04/17 at 16:46; Stop 02/04/17 at 16:47; Status DC Midazolam HCl (Versed Inj) 2 mg STK-MED ONCE .ROUTE ; Start 02/04/17 at 17:06; Stop 02/04/17 at 17:07; Status DC Fentanyl Citrate (fentaNYL INJ) 250 mcg STK-MED ONCE .ROUTE ; Start 02/04/17 at 17:06; Stop 02/04/17 at 17:07; Status DC Miscellaneous Information ALL NURSING DEPARTME... UNSCH PRN .XX SEE LABEL COMMENTS; Start 02/04/17 at 17:01; Stop 02/05/17 at 17:00 A/P Assessment and Plan A/P FUO-suspected PD related peritonitis- now with no recurrent fever. Presented with abdominal pain, vomiting and diarrhea- which has resolved. CT abdomen and pelvis noncontrast with normal gallbladder, liver, pancreas. There is thickening of stomach noted on CT abd/pelvis [place] post EGD. Peritoneal fluid initially negative for SBP, but repeat sample indicative of SBP. Symptoms resolved. Echo revealed evidence of vegetation on the mitral valve. however ROBYN performed 01/21/17 and was negative for endocarditis.Blood cultures with no growth at this time. Repeat peritoneal fluid studies (third time) not indicative of peritonitis. further fever workup so far urine eosinophils(neg), rheumatoid factor(neg), SPEP (no monoclonal protein), ESR(140), CK(low) and lipase(WNL) and positive quantiferron - gallium scan with : single focal area of accumulation in the soft tissues just anterior to the right mandible with focal soft tissue swelling in this location. The bony structure of the mandible is grossly unremarkable. - repeat panculture negative to date. -ID follow-up appreciated; recommended serial monitroing of quantiferron- no abx upon discharge. End-stage renal disease on peritoneal dialysis. converted to hemodialysis- since Patient has been noncompliant with poor technique doing PD. s/p Permcath placement and s/p AVF placement. peritoneal access was removed. nephrology following. cleared for discharge by vascular surgery with outpatient follow-up. cleared for discharge by general surgery. Hematemesis One episode 01/23/17. GI consult appreciated. - EGD showed esophagitis and gastritis. Continue PPI. Antireflux mechanisms discussed with the patient. Follow up pathology no fungal organisms. Negative for H. pylori. He has reactive gastropathy and esophagitis -continue PPI. Acute respiratory alkalosis/ COPD Alkalosis likely compensatory for metabolic acidosis. Pt was previously on prednisone, unclear if secondary to COPD. He smokes a pack every few days. Breathing is stable at this point. S/p prednisone. - smoking cessation instruction. - oxygen as needed. - encourage ambulation. Hypertension - resumed clonidine at a lower dose and amlodipine. Increase clonidine as needed. -continue to monitor BP. Chronic anemia Likely due to chronic disease. - follow CBC and transfuse as needed. Sinus tachycardia Multifactorial. TSH within normal limits. Improving continue metoprolol . -- telemetry. Diabetes mellitus overall better controlled. - low dose dose insulin sliding scale. Continue Levemir 7 units daily, 5 units HS. Secondary hyperparathyroidism due to renal disease. - Calcitriol 0.25 mg po daily, calcium acetate 667 mg po tid. PPx: Heparin Discharge Planning dc to SNF today. HD per nephrology. see med list. f/u; pcp,ID,vascular surgery , nephrology and GI. d/w the patient. time spent 35 min. Mac Suggs MD Feb 05, 2017 11:30
--- NOTE | 2017-02-05 11:33 | HHI.DS ---
Discharge Summary Admission Date Jan 15, 2017 at 22:35 Discharge Date: Feb 05, 2017 Admitting Diagnosis DKA, lactic acidosis, peritonitis, ESRD (1) ESRD (end stage renal disease) ICD Code: N18.6 Diagnosis: Principal Procedures EGD permacath placement AVF placement removal of peritoneal dialysis access Brief History - From Admission 61 yo AAM with PMH of end-stage renal disease started on peritoneal dialysis 3 months ago, hypertension, hepatitis C, recent diagnosis of diabetes about 2 weeks ago who presents to [facility] emergency department via [facility] after family member urged him to seek medical attention. He states "I don't really understand how to manage my diabetes". He states blood glucose has been running "high" since he was discharged from the hospital despite taking accucheck tid with sliding scale via insulin pen (though he reported to ED staff he had stopped taking insulin 2 days ago). He states for the last 2 days he has had cramping abdominal pain, vomiting (nonbloody, nonbilious) every time he tries to eat, 4-5 loose stools daily, myalgias, sore throat. He denies melena , has noticed some blood streaks on toilet paper. Temp is 99.3. He denies CP , SOB, hemoptysis, cough. He continues to make urine multiple times daily, no dysuria. Reports compliance with intermittent PD performed nightly and states peritoneal fluid has appeared clear. No discharge at catheter site. ED workup included lipase of 2005, glucose 760, anion gap 17, lactic acid 4.1, beta hydroxybutyrate 0.51, ammonia 59. CT abdomen and pelvis performed without contrast demonstrates no loculated fluid. Liver and pancreas appeared normal. Previously seen gastric wall thickening is improved. Patient states abdominal pain is much better than when he came in; hasn't received any analgesia CBC/BMP: 02/03/17 0919 02/04/17 0641 Significant Findings Laboratory Tests Test 02/03/17 02/04/17 09:19 06:41 Red Blood Count 2.99 MIL/MM3 (4.50-5.90) Hemoglobin 9.0 GM/DL (13.0-17.0) Hematocrit 27.2 % (39.0-51.0) Monocytes (%) (Auto) 11.3 % (0.0-8.0) Monocytes # (Auto) 1.0 TH/MM3 (0-0.9) Carbon Dioxide Level 32.5 MEQ/L (21.0-32.0) Blood Urea Nitrogen 24 MG/DL (7-18) 29 MG/DL (7-18) Creatinine 8.57 MG/DL 10.45 MG/DL (0.60-1.30) (0.60-1.30) Estimat Glomerular Filtration 8 ML/MIN (>89) 6 ML/MIN (>89) Rate Calcium Level 8.1 MG/DL 8.1 MG/DL (8.5-10.1) (8.5-10.1) Potassium Level 5.2 MEQ/L (3.5-5.1) Imaging Last Impressions Chest CT 02/03/17 0000 Signed Impressions: Service Date/Time: Friday, February 03, 2017 19:50 - CONCLUSION: 1. Minimal bilateral pleural effusions with atelectasis or consolidation at the bases. 2. Mild emphysematous change. 3. Mild ascites around the liver. Juan Lemon MD Catheter Placement X-Ray 02/02/17 0000 Signed Impressions: Service Date/Time: Thursday, February 02, 2017 11:44 - CONCLUSION: Uncomplicated PermaCath placement as above. González Mederos MD Upper Extremity Ultrasound 01/29/17 0000 Signed Impressions: Service Date/Time: January 17:57 - CONCLUSION: Negative exam with no evidence of deep venous thrombosis. Saud Kowalski MD Gallium Scan Nuclear Medicine 01/29/17 0000 Signed Impressions: Service Date/Time: January 00:00 - CONCLUSION: Single focal area of accumulation in the soft tissues just anterior to the right mandible. There is focal soft tissue swelling in this location. The bony structure of the mandible is grossly unremarkable. Joce De Luna MD Chest X-Ray 01/23/17 0000 Signed Impressions: Service Date/Time: Monday, January 23, 2017 11:42 - CONCLUSION: 1. No acute abnormality or significant interval change. González Mederos MD Lung Scan-VQ Nuclear Medicine 01/16/17 0000 Signed Impressions: Service Date/Time: Monday, January 16, 2017 15:38 - CONCLUSION: Low probability for pulmonary embolism. Edgardo Goldstein MD FACR Lower Extremity Ultrasound 01/16/17 0000 Signed Impressions: Service Date/Time: Monday, January 16, 2017 08:17 - CONCLUSION: Normal examination. Satinder Khanna Jr., MD Abdomen/Pelvis CT 01/15/17 0000 Signed Impressions: Service Date/Time: January 22:54 - CONCLUSION: 1. Patient is on peritoneal dialysis. There is small moderate ascites, increased from before. No loculated fluid. 2. Decreased gastric wall thickening, now mild. Nasogastric tube has been removed. 3. No obstruction or perceptible acute inflammatory changes seen of the gastrointestinal tract. Juan Mercado MD PE at Discharge GENERAL: in no apparent distress. CARDIOVASCULAR: Regular rate and regular rhythm without murmurs, gallops, or rubs. RESPIRATORY: Clear to auscultation. Breath sounds equal bilaterally. No wheezes , rales, or rhonchi. GASTROINTESTINAL: Abdomen soft, non-tender, nondistended. Normal, active bowel sounds- peritoneal dialysis access in place. MUSCULOSKELETAL: Extremities without clubbing, cyanosis, or edema. NEURO: Alert & Oriented x4 to person, place, time, situation. Moves all ext x4 Hospital Course FUO-suspected PD related peritonitis- now with no recurrent fever. Presented with abdominal pain, vomiting and diarrhea- which has resolved. CT abdomen and pelvis noncontrast with normal gallbladder, liver, pancreas. There is thickening of stomach noted on CT abd/pelvis [place] post EGD. Peritoneal fluid initially negative for SBP, but repeat sample indicative of SBP. Symptoms resolved. Echo revealed evidence of vegetation on the mitral valve. however ROBYN performed 01/21/17 and was negative for endocarditis.Blood cultures with no growth at this time. Repeat peritoneal fluid studies (third time) not indicative of peritonitis. further fever workup so far urine eosinophils(neg), rheumatoid factor(neg), SPEP (no monoclonal protein), ESR(140), CK(low) and lipase(WNL) and positive quantiferron - gallium scan with : single focal area of accumulation in the soft tissues just anterior to the right mandible with focal soft tissue swelling in this location. The bony structure of the mandible is grossly unremarkable. - repeat panculture negative to date. -ID follow-up appreciated; recommended serial monitroing of quantiferron- no abx upon discharge. End-stage renal disease on peritoneal dialysis. converted to hemodialysis- since Patient has been noncompliant with poor technique doing PD. s/p Permcath placement and s/p AVF placement. peritoneal access was removed. nephrology following. cleared for discharge by vascular surgery with outpatient follow-up. cleared for discharge by general surgery. Hematemesis One episode 01/23/17. GI consult appreciated. - EGD showed esophagitis and gastritis. Continue PPI. Antireflux mechanisms discussed with the patient. Follow up pathology no fungal organisms. Negative for H. pylori. He has reactive gastropathy and esophagitis -continue PPI. Acute respiratory alkalosis/ COPD Alkalosis likely compensatory for metabolic acidosis. Pt was previously on prednisone, unclear if secondary to COPD. He smokes a pack every few days. Breathing is stable at this point. S/p prednisone. - smoking cessation instruction. - oxygen as needed. - encourage ambulation. Hypertension - resumed clonidine at a lower dose and amlodipine. Increase clonidine as needed. -continue to monitor BP. Chronic anemia Likely due to chronic disease. - follow CBC and transfuse as needed. Sinus tachycardia Multifactorial. TSH within normal limits. Improving continue metoprolol . -- telemetry. Diabetes mellitus overall better controlled. - low dose dose insulin sliding scale. Continue Levemir 7 units daily, 5 units HS. Secondary hyperparathyroidism due to renal disease. - Calcitriol 0.25 mg po daily, calcium acetate 667 mg po tid. PPx: Heparin Pt Condition on Discharge: Stable Discharge Disposition: Discharge to SNF Discharge Time: > 30 minutes Discharge Instructions DIET: Follow Instructions for: Diabetic Diet, Renal Failure Diet Activities you can perform: Regular-No Restrictions Activities to Avoid: Driving Follow up Referrals: Gastroenterology - 2 Weeks @ [facility] Infectious Disease with Nba Lazaro MD Nephrology - 1 Week PCP Follow-up - 1 Week Vascular Surgery New Medications: Clonidine (Catapres) 0.1 Mg Tab 0.1 MG PO TID Blood Pressure Management #90 TAB Insulin Detemir Inj (Levemir Inj) 1,000 unit/ 10 ML Vial 5 UNITS SQ HS Blood Sugar Management #30 INJECTION Insulin Detemir Inj (Levemir Inj) 1,000 unit/ 10 ML Vial 7 UNITS SQ DAILY Blood Sugar Management #30 INJECTION Metoprolol Tartrate (Metoprolol Tartrate) 25 Mg Tab 12.5 MG PO Q12HR Regulate Heart Beat #60 TAB Pantoprazole (Pantoprazole) 40 Mg Tab 40 MG PO DAILY Manage Heartburn #30 TAB Sennosides-Docusate Sodium (Senna Plus 8.6-50 mg) 1 Tab Tab 1 TAB PO BID Prevent Constipation #60 TAB Thiamine HCl (Gnp Vitamin B-1) 100 Mg Tab 100 MG PO DAILY Alcohol Detox #30 TAB Continued Medications: Amlodipine (Norvasc) 5 Mg Tab 5 MG PO BID #60 Ref 0 TAB Calcitriol (Calcitriol) 0.25 Mcg Cap 0.25 MCG PO DAILY Calcium Supplement #30 Ref 0 CAP Calcium Acetate (Phosphate Bin (Calcium Acetate) 667 Mg Cap 667 MG PO TID #90 Ref 0 CAP Insulin Aspart Inj (Novolog Flexpen Inj) 300 Unit/3 Ml Pen 1 UNITS SQ ACHS SLIDING SCALE blood sugar <150 do not give insulin. blood sugar 150-180 give 2 units of insulin before meals. blood sugar 181-200 give 3 units of insulin before meals. blood sugar 201 and above give 4 units of insulin before meals. Blood Sugar Management #1 Ref 0 PEN Discontinued Medications: Clonidine (Clonidine) 0.3 Mg Tab 0.3 MG PO TID Blood Pressure Management #60 Ref 0 TAB Insulin Glargine Inj (Lantus Solostar Pen Inj) 300 Unit/3 Ml Pen 5 UNITS SQ DAILY Blood Sugar Management #1 Ref 0 PEN Prednisone (Prednisone) 20 Mg Tab 20 MG PO BID Ref 0 TAB Ranitidine (Ranitidine) 150 Mg Cap 150 MG PO BID #60 Ref 0 CAP Mac Suggs MD Feb 05, 2017 11:33
[2017-02-05 12:00] VITALS: BP 112/67; PULSE 108; RESP 18; TEMP 98.3; O2SAT 98
--- NOTE | 2017-02-05 12:15 | HHI.NPPN ---
Subjective History of Present Illness 61-year-old black male with history of end-stage renal disease, hypertension, new onset of diabetes he was admitted last time with severe hyperglycemia, he was discharge home and he said he did not know how to take insulin and has not taken insulin him back with some abdominal pain, hyperglycemia and received peritoneal dialysis culture has been pending total WBC count was 120 with only 8 % neutrophils. Review of Systems General Constitutional: Fever, Fatigue Cardiovascular Cardiac: AGUILAR Objective Data Data 02/04/17 02/05/17 19:00 07:00 Intake Total 0 ml 480 ml Output Total 2300 ml 100 ml Balance -2300 ml 380 ml Intake Oral 0 ml 480 ml Output Urine Total 300 ml 100 ml Hemodialysis 2000 ml # Bowel Movements 0 0 Vital Signs Date Time Temp Pulse Resp B/P Pulse Ox O2 Delivery O2 Flow Rate FiO2 02/05/17 10:56 98 21 02/05/17 08:00 98.3 109 18 109/67 100 02/05/17 03:50 98.5 107 16 99/65 98 02/05/17 00:00 Room Air 02/04/17 23:18 98.1 103 16 102/64 98 02/04/17 20:00 Room Air 02/04/17 20:00 108 02/04/17 19:38 98.1 108 16 95/64 97 02/04/17 18:11 98.3 113 20 130/74 98 02/04/17 17:34 21 02/04/17 17:15 110 16 112/68 100 Room Air 02/04/17 17:00 109 16 121/68 100 Nasal Cannula 2 02/04/17 16:58 97.5 108 16 118/73 100 Nasal Cannula 2 02/04/17 16:00 98.7 104 20 109/72 99 02/04/17 13:37 98.8 119 20 109/72 97 -: 02/03/17 0919 02/04/17 0641 Physical Exam General Appearance: Well Nourished, No Acute Distress, Comfortable Eyes Eye Exam: Pupils Equal Throat Throat Exam: Oral Mucosa [place] & Moist Neck Neck Exam: Neck Supple Pulmonary Resp Exam: Breath Sounds Equal, No Distress, Decreased Bases Cardiology CV Exam: Tachycardia Gastrointestinal/Abdomen GI Exam: Soft, Non-Tender, Bowel Sounds Present, Distended (with PD catheter in place.) Extremeties Extremities Exam: Trace Edema Neurologic Neuro Exam: Alert, Awake, Oriented Psychiatric Psych Exam: Appropriate Responses Assessment/Plan Problem List: (1) ESRD (end stage renal disease) Plan: on hemodialysis via P/C Cultures have been negative. social issues Vascular AVF placement PD catheter taken out TB test weakly positive PPD in clinic October 29 negative December 04 negative ID d/e Dr. Mitchell weakly positive TB test with negative PPD just observe no need to treat can be followed as out patient no obvious source of infection FU as out patient (2) HTN (hypertension) Plan: Continue to monitor (3) Diabetic hyperosmolar non-ketotic state Plan: Blood sugar is acceptable. Problem Qualifiers (1) HTN (hypertension): Qualified Code: I10 - Essential hypertension Ned Sosa MD Feb 05, 2017 12:15
--- NOTE | 2017-02-06 14:32 | MP ---
cc: KRISTYN MILLS M.D., DAVID G. M.D. DATE OF SURGERY: 02/04/2017 PREOPERATIVE DIAGNOSIS: Inability to use peritoneal dialysis catheter, desire for removal. POSTOPERATIVE DIAGNOSIS Inability to use peritoneal dialysis catheter, desire for removal. PROCEDURE Removal peritoneal dialysis catheter. SURGEON Dr. Darnell Chris ANESTHESIA General INDICATIONS This unfortunate 61-year-old -[place] gentleman with chronic kidney disease is in need for dialysis. He had a peritoneal dialysis catheter placed in October. It functions normally but he is unable to use it. Plans are made for hemodialysis. He has had a PermCath placed and an AV fistula performed. INTRAOPERATIVE FINDINGS Removal of entire peritoneal dialysis catheter. ESTIMATED BLOOD LOSS: Less then 5 ml. DESCRIPTION OF PROCEDURE IN DETAIL The patient identified as John Ramirez Jr. taken to operating room and placed in the supine position. Sequential compression devices were placed on bilateral lower extremities. Following induction of adequate general endotracheal anesthesia, the patient's abdomen was prepped and draped in usual sterile fashion with Betadine. A time-out procedure was performed. Following completion of time-out procedure everyone's satisfaction within the room. 1% lidocaine with epinephrine was injected at each proposed incision site and at the catheter exit site. Traction on the catheter was performed with a hemostat and the distal cuff was from surrounding tissues with a hemostat. A mosquito blunt dissection. The two other incisions were made where the previous incisions were made at time of surgery. This facilitated mobilization of the catheter removal of the two additional cuffs. The catheter was cut into the three separate pieces to facilitate removal of catheters through the subcutaneous tract. The catheter was ultimately withdrawn from peritoneal cavity as a distal cuff was released from the abdominal wall. The cuffs and catheter were removed in their entirety. Clear fluid extruded through the tract from the subcutaneous tissue to the peritoneum. This trach was occluded with a single 2-0 Vicryl [id number] suture. Copious irrigation with saline through the skin openings was then performed. There was no evidence of bleeding. The subcutaneous tracts appeared noninfected. The catheter exit sites at the skin level was freshened but creating an elliptical incision with scalpel. Three incisions were closed with interrupted inverted 4-0 Monocryl subcuticular sutures. Dressings were applied with Mastisol inch brown Steri-Strips. The patient tolerated the procedure without apparent complication. Sponge, needle and instrument counts were correct at the end of the case. MD WILLIAMS Adrian/casie /5:02 PM /2:28 PM
== END 2017-02-05 15:20 | DRG 628 ==
LOC: NEPC 20:50 → NEDA 22:35 → HIMN 01-16 00:04 → N04B 01-18 14:56
PROVIDERS: ADMIT Internal Medicine; ATTEND Internal Medicine
PROC: 3E1M39Z Irrigation of Peritoneal Cavity using Dialysate, Percutaneous Approach (ICD-10-PCS; 2017-01-16)
PROC: 0DB38ZX Excision of Lower Esophagus, Via Natural or Artificial Opening Endoscopic, Diagnostic (ICD-10-PCS; 2017-01-25)
PROC: 0DB68ZX Excision of Stomach, Via Natural or Artificial Opening Endoscopic, Diagnostic (ICD-10-PCS; 2017-01-25)
PROC: 05HP33Z Insertion of Infusion Device into Right External Jugular Vein, Percutaneous Approach (ICD-10-PCS; 2017-02-02)
PROC: B543ZZA Ultrasonography of Right Jugular Veins, Guidance (ICD-10-PCS; 2017-02-02)
PROC: 03180ZD Bypass Left Brachial Artery to Upper Arm Vein, Open Approach (ICD-10-PCS; principal; 2017-02-03 10:00)
PROC: 0WPG03Z Removal of Infusion Device from Peritoneal Cavity, Open Approach (ICD-10-PCS; 2017-02-04)
PROC: 5A1D00Z (ICD-10-PCS; 2017-02-04)
DX: E11.00 Type 2 diabetes mellitus with hyperosmolarity without nonketotic hyperglycemic-hyperosmolar coma (NKHHC) (principal); N18.6 End stage renal disease; E87.3 Alkalosis; K92.0 Hematemesis; J90 Pleural effusion, not elsewhere classified; E72.20 Disorder of urea cycle metabolism, unspecified; I95.9 Hypotension, unspecified; E44.0 Moderate protein-calorie malnutrition; I12.0 Hypertensive chronic kidney disease with stage 5 chronic kidney disease or end stage renal disease; N25.81 Secondary hyperparathyroidism of renal origin; R18.8 Other ascites; D62 Acute posthemorrhagic anemia; T85.691A Other mechanical complication of intraperitoneal dialysis catheter, initial encounter; R50.9 Fever, unspecified; E11.22 Type 2 diabetes mellitus with diabetic chronic kidney disease; D72.829 Elevated white blood cell count, unspecified; G89.29 Other chronic pain; M54.5 Low back pain; D64.9 Anemia, unspecified; J44.9 Chronic obstructive pulmonary disease, unspecified; J02.9 Acute pharyngitis, unspecified; B19.20 Unspecified viral hepatitis C without hepatic coma; K20.9 Esophagitis, unspecified; K29.70 Gastritis, unspecified, without bleeding; R00.0 Tachycardia, unspecified; E78.1 Pure hyperglyceridemia; E87.5 Hyperkalemia; R74.8 Abnormal levels of other serum enzymes; M19.90 Unspecified osteoarthritis, unspecified site; K31.9 Disease of stomach and duodenum, unspecified; R76.11 Nonspecific reaction to tuberculin skin test without active tuberculosis; F12.90 Cannabis use, unspecified, uncomplicated; F17.210 Nicotine dependence, cigarettes, uncomplicated; Y84.8 Other medical procedures as the cause of abnormal reaction of the patient, or of later complication, without mention of misadventure at the time of the procedure; Z79.4 Long term (current) use of insulin; Z68.22 Body mass index [BMI] 22.0-22.9, adult; Z83.3 Family history of diabetes mellitus; Z88.6 Allergy status to analgesic agent; Z91.19 Patient's noncompliance with other medical treatment and regimen; Z99.2 Dependence on renal dialysis
CPT/HCPCS: 36558; 36600; 71010; 71250; 74176; 76937; 77001; 78582; 78806; 78807; 78999; 80048; 80053; 80061; 80074; 80202; 80307; 81001; 82010; 82140; 82533; 82550; 82607; 82805; 82948; 83540; 83550; 83605; 83615; 83690; 83735; 84100; 84145; 84155; 84165; 84443; 84478; 85007; 85025; 85027; 85379; 85610; 85652; 85730; 86038; 86140; 86430; 86480; 86703; 87015; 87040; 87070; 87102; 87116; 87205; 87206; 87497; 87641; 87899; 88305; 88312; 89051; 90935; 93005; 93308; 93312; 93320; 93325; 93970; 93971; 93998; 94640; 94664; 96372; 96374; 96375; 99152; 99153; A9540; A9556; A9567; C1750; C1769; C9113; J0295; J0692; J0713; J1580; J1644; J1815; J2250; J2370; J2405; J2710; J2720; J3010; J3370; J3475; J7030; J7050; J7070; J7512; Q4081

== ENCOUNTER 2017-04-02 01:44 | Inpatient (IN) | payer MEDICARE, OTHER ==
[~2017-04-02] VITALS: Ht 170.2 cm; Wt 70.7 kg
[2017-04-02] VITALS (21 sets, daily range): BP systolic 123–171; BP diastolic 74–86; PULSE 61–94; RESP 10–21; TEMP 97.4–98.6; O2SAT 96–100
[~2017-04-02 01:44] MED LIST changes: -ATEN50TA PO; +CALC0.25 PO; -CHOL5000 PO; +CLON.1 PO; -CLON0.3T PO; +GNP100TA3 PO; -LANTINJ SQ; +LEVEMIR SQ; +METO25TA3 PO; +PANT40TA3 PO; -RANI150C PO
[2017-04-02] MEDS ORDERED: SODIUM CHLORIDE 0.9% FLUSH 10 ML FLUSH IVF PRN ×2 (03:15→05:00)
[2017-04-02] MEDS ORDERED: SODIUM CHLOR 0.9% 1000 ML INJ 1,000 ML IV ONE ×3 (03:36→05:15)
[2017-04-02 03:44] LABS: BLOOD GAS VENOUS BASE EXCESS -6.2 mmol/L (-2-2); BLOOD GAS VENOUS HCO3 19 mmol/L (22-26); BLOOD GAS VENOUS O2 CONTENT 9.7 Vol % (9.0-17.0); BLOOD GAS VENOUS O2 HGB SAT 58 % (70-76); BLOOD GAS VENOUS PCO2 39 mmHg (44-48); BLOOD GAS VENOUS PO2 36 mmHg (35-40); BLOOD GAS VENOUS pH 7.31 (7.360-7.400); CRITICAL VALUE YES; FIO2 21 %; OXYGEN DEVICE ROOM AIR; STAT YES; TEMP CORR TO 98.6
[2017-04-02 03:52] LABS: AUTOMATED NEUTROPHIL # 6.7 TH/MM3 (1.8-7.7); BASOPHIL # 0.1 TH/MM3 (0-0.2); BASOPHIL % 1.4 % (0.0-2.0); HEMATOCRIT 37.7 % (39.0-51.0); HEMO FLAGS DIFF FINAL; LYMPH % 9.8 % (9.0-44.0); LYMPHOCYTE # 0.8 TH/MM3 (1.0-4.8); MEAN CELL VOLUME 97.1 FL (80.0-100.0); MEAN CORPUSCULAR HEMOGLOBIN 30.4 PG (27.0-34.0); MEAN CORPUSCULAR HGB CONC 31.3 % (32.0-36.0); NEUT % 85.8 % (16.0-70.0); PLATELET COUNT 146 TH/MM3 (150-450); RED BLOOD COUNT 3.88 MIL/MM3 (4.50-5.90); RED CELL DISTRIBUTION WIDTH 16.5 % (11.6-17.2); WHITE BLOOD COUNT 7.9 TH/MM3 (4.0-11.0)
[2017-04-02] MEDS ORDERED: INSULIN HUMAN REGULAR 1,000 UNITS/10 ML VIAL IV PUSH ONE (04:00)
[2017-04-02 04:01] LABS: BLOOD, URINE TRACE (NEG); COMMENT (UR) CULT NOT INDICATED; CULTURE IF INDICATED CULT NOT INDICATED; GLUCOSE,URINE 1000 mg/dL (NEG); KETONE, URINE NEG (NEG); NITRITE,URINE NEG (NEG); URINE COLOR LIGHT-YELLOW (YELLW/STRAW)
--- NOTE | 2017-04-02 04:01 | RADRPT ---
EXAM DATE/TIME: 04/02/2017 03:31 [facility] COMPARISON: CT THORAX W/O CONTRAST, February 03, 2017, 19:50. INDICATIONS : Shortness of breath. MEDICAL HISTORY : Hypertension. Chronic obstructive pulmonary disease. Diabetes mellitus type II. Hep C Renal failu re SURGICAL HISTORY : None. ENCOUNTER: Initial ACUITY: 1 day PAIN SCORE: 0/10 LOCATION: Bilateral chest FINDINGS: A single view of the chest demonstrates the lungs to be symmetrically aerated without evidence of mas s, infiltrate or effusion. Right central line in superior vena cava. The cardiomediastinal contours a re unremarkable. Osseous structures are intact. CONCLUSION: 1. Right central line in superior vena cava. No acute findings. Marcello Disla MD on April 02, 2017 at 3:59 Board Certified Radiologist. This report was verified electronically.
--- NOTE | 2017-04-02 04:02 | RADRPT ---
EXAM DATE/TIME: 04/02/2017 03:32 [facility] COMPARISON: No previous studies available for comparison. INDICATIONS : Right shoulder pain from a fall. MEDICAL HISTORY : Hypertension. Chronic obstructive pulmonary disease. Diabetes mellitus type II. Renal failure Hep C SURGICAL HISTORY : None. ENCOUNTER: Initial ACUITY: 1 day PAIN SCORE: 5/10 LOCATION: Right Shoulder FINDINGS: Multiple view examination of the right shoulder demonstrates no evidence of fracture or dislocation. The glenohumeral and acromioclavicular joints are maintained. There is normal range of motion betwe en internal and external rotation. Bony mineralization is normal. CONCLUSION: 1. No acute fracture. Accessory ossicle at a.c. joint. Marcello Disla MD on April 02, 2017 at 3:59 Board Certified Radiologist. This report was verified electronically.
--- NOTE | 2017-04-02 04:03 | RADRPT ---
EXAM DATE/TIME: 04/02/2017 03:34 [facility] COMPARISON: No previous studies available for comparison. INDICATIONS : Right knee pain from a fall. MEDICAL HISTORY : Hypertension. Chronic obstructive pulmonary disease. Diabetes mellitus type II. Hep C Renal failu re SURGICAL HISTORY : None. ENCOUNTER: Initial ACUITY: 1 day PAIN SCORE: 5/10 LOCATION: Right knee FINDINGS: Four view examination of the right knee demonstrates no evidence of fracture or dislocation. Bony mi neralization is normal. Bony protuberance proximal tibia probably represents a small osteochondroma. The articular surfaces are intact. The suprapatellar soft tissues have a normal configuration. CONCLUSION: 1. No acute bony abnormalities. Mild osteoarthritis. Probable small osteochondroma extending from med ial posterior tibia. Marcello Disla MD on April 02, 2017 at 4:00 Board Certified Radiologist. This report was verified electronically.
[2017-04-02 04:24] LABS: ALKALINE PHOSPHATASE 153 U/L (45-117); ALT (GPT) 53 U/L (12-78); ANION GAP 12 MEQ/L (5-15); AST (GOT) 28 U/L (15-37); BETA-HYDROXYBUTYRATE 0.18 MMOL/L (0.00-0.39); BICARBONATE 20.8 MEQ/L (21.0-32.0); BLOOD UREA NITROGEN 66 MG/DL (7-18); CHLORIDE 94 MEQ/L (98-107); GLOMERULAR FILTRATION RATE 8 ML/MIN (>89); MAGNESIUM 2.4 MG/DL (1.5-2.5); SODIUM (NA) 127 MEQ/L (136-145); TOTAL BILIRUBIN ADULT 0.4 MG/DL (0.2-1.0)
--- NOTE | 2017-04-02 04:25 | PD ---
HPI Chief Complaint: Diabetic Time Seen by Provider: 03:06 Travel History International Travel<30 days: No Contact w/Intl Traveler<30days: No Traveled to known affect area: No History of Present Illness HPI 61-year-old male with history of insulin-dependent diabetes and previous peritoneal dialysis is currently receiving hemodialysis Tuesdays and Saturdays. Patient presents to the emergency room tonight by EMS transport as he had gotten up out of bed to go to the bathroom and fell. Patient states she injured his right shoulder and his right knee. Patient states he did not hit his head did not have loss of consciousness did not injure his neck did not injure his back did not injure his chest or chest wall did not injure his abdomen did not injure his left arm or left leg or pelvis. Patient denies back pain. Patient has a right chest wall tingling Or for hemodialysis. Patient has a left AV graft fistula that was placed during his last hospitalization. Patient has had no fever or chills. Patient does have some right-sided weakness or pain secondary to fall but not preceding his fall. Patient states that he has been seen in the past for a stroke with some residual right-sided weakness and has not worsened. Patient has had no fever no chills no nausea no vomiting no cough no congestion no shortness of breath no orthopnea no PND and no lower extremity pain or swelling. Patient denies any abdominal pain or tenderness. Does not report any change in bowel habits. Patient has not had bloody or mucoid stool. Patient has noted his blood sugar has remained elevated today and his blood sugar was over 600 earlier in the evening at which time he took regular insulin. [facility] Past Medical History Narrative Medical Hepatitis C arthritis diabetes hemodialysis previous peritoneal dialysis COPD hypertension removal of peritoneal dialysis catheter insertion of right subclavian hemodialysis catheter and AV graft fistula formation left upper extremity January 2017 tobacco use; nursing notes reviewed Arthritis: Yes Blood Disorders: Yes (hep c ) Anxiety: No Depression: No Heart Rhythm Problems: No Cancer: No Cardiovascular Problems: Yes (HTN) Chemotherapy: No Chest Pain: Yes Congestive Heart Failure: No COPD: Yes Cerebrovascular Accident: No Diabetes: Yes Patient Takes Glucophage: No Dialysis: Yes (peritoneal) Diminished Hearing: No Endocrine: No Genitourinary: No Hepatitis: Yes (C) Hypertension: Yes Immune Disorder: No Implanted Vascular Access Dvce: Yes (peritoneal dialysis catheter) Musculoskeletal: No Neurologic: No Psychiatric: No Reproductive: No Respiratory: Yes Migraines: Yes Radiation Therapy: No Seizures: No Sickle Cell Disease: No Sleep Apnea: No Thyroid Disease: No Tetanus Vaccination: < 5 Years Influenza Vaccination: No Past Surgical History AICD: No Arteriovenous Shunt: No Cardiac Surgery: No Insulin Pump: No Joint Replacement: No Neurologic Surgery: No Pacemaker: No Other Surgery: Yes (AV FISTULA LEFT A/C) Social History Alcohol Use: No Tobacco Use: Yes Substance Use: No Allergies-Medications (Allergen,Severity, Reaction): Coded Allergies: aspirin (Unverified Allergy, Unknown, 04/02/17) HEP C Reported Meds & Prescriptions Reported Meds & Active Scripts Active Metoprolol Tartrate 25 Mg Tab 12.5 Mg PO Q12HR Gnp Vitamin B-1 (Thiamine HCl) 100 Mg Tab 100 Mg PO DAILY Senna Plus 8.6-50 mg (Sennosides-Docusate Sodium) 1 Tab Tab 1 Tab PO BID Pantoprazole (Pantoprazole Sodium) 40 Mg Tab 40 Mg PO DAILY Levemir Inj (Insulin Detemir) 1,000 unit/ 10 ML Vial 7 Units SQ DAILY Levemir Inj (Insulin Detemir) 1,000 unit/ 10 ML Vial 5 Units SQ HS Catapres (Clonidine) 0.1 Mg Tab 0.1 Mg PO TID Trueresult Blood Glucose (Device) System Kit 1 Kit .ROUTE DIRECTED Carefine Pen [place] 31G X 6 mm 1 Mis Mis 1 Ea .ROUTE DIRECTED Novolog Flexpen Inj (Insulin Aspart) 300 Unit/3 Ml Pen 1 Units SQ ACHS SLIDING SCALE blood sugar <150 do not give insulin. blood sugar 150-180 give 2 units of insulin before meals. blood sugar 181-200 give 3 units of insulin before meals. blood sugar 201 and above give 4 units of insulin before meals. Calcium Acetate (Calcium Acetate (Phosphate Bin) 667 Mg Cap 667 Mg PO TID Norvasc (Amlodipine Besylate) 5 Mg Tab 5 Mg PO BID Reported Calcitriol 0.25 Mcg Cap 0.25 Mcg PO DAILY Review of Systems Except as stated in HPI: all other systems reviewed are Neg General / Constitutional: No: Fever, Chills HENT: No: Congestion Cardiovascular: No: Chest Pain or Discomfort Respiratory: No: Cough, Shortness of Breath Gastrointestinal: No: Nausea, Vomiting, Abdominal Pain Genitourinary: No: Flank Pain Musculoskeletal: Positive: Pain, No: Myalgias, Arthralgias Skin: No Rash Neurologic: No: Weakness, Dizziness, Syncope Psychiatric: No: Anxiety Endocrine: No: Heat Intolerance Hematologic/Lymphatic: No: Easy Bruising Physical Exam Narrative GENERAL: Well-developed well-nourished male in no acute distress no respiratory distress; GCS 15; triage vital signs temperature 90.8F heart rate 61 respiratory rate 18 and not labored blood pressure 132/79 room air O2 saturation 100% blood sugar greater than 600 SKIN: Warm and dry. HEAD: Atraumatic. Normocephalic. No scalp soft tissue swelling or point tenderness or bony abnormality no abrasion or laceration EYES: Pupils equal and round. Extraocular muscles intact. No scleral icterus. No injection or drainage. ENT: No nasal bleeding or discharge. Mucous membranes pink and moist. Airway is patent. NECK: Trachea midline. No JVD. No midline tenderness to direct palpation along the cervical spine no bony step-off. CARDIOVASCULAR: Regular rate and rhythm. Chest wall: Right chest wall dialysis catheter RESPIRATORY: No accessory muscle use. Clear to auscultation. Breath sounds equal bilaterally. GASTROINTESTINAL: Abdomen soft, non-tender, nondistended. Hepatic and splenic margins not palpable. MUSCULOSKELETAL: Extremities without clubbing, cyanosis, or edema. No obvious deformities. Left upper extremity upper arm AV fistula with good thrill NEUROLOGICAL: Awake and alert. No obvious cranial nerve deficits. Motor grossly within normal limits. Five out of 5 muscle strength in the arms and legs. Normal speech. PSYCHIATRIC: Appropriate mood and affect; insight and judgment normal. Data Data Last Documented VS Vital Signs Date Time Temp Pulse Resp B/P (MAP) Pulse Ox O2 Delivery O2 Flow Rate FiO2 04/02/17 03:41 18 98 Room Air 04/02/17 01:47 98.0 61 132/79 (96) Orders Orders Electrocardiogram (04/02/17 03:06) Complete Blood Count With Diff (04/02/17 03:06) Comprehensive Metabolic Panel (04/02/17 03:06) Magnesium (Mg) (04/02/17 03:06) Beta Hydroxybutyrate (Acetone) (04/02/17 03:06) Lactic Acid (04/02/17 03:06) Urinalysis - C+S If Indicated (04/02/17 03:06) Chest, Single Ap (04/02/17 03:06) Blood Glucose (04/02/17 03:06) Ecg Monitoring (04/02/17 03:06) Iv Access Insert/Monitor (04/02/17 03:06) Oximetry (04/02/17 03:06) NPO (04/02/17 03:06) Sodium Chlor 0.9% 1000 Ml Inj (Ns 1000 M (04/02/17 03:36) Sodium Chloride 0.9% Flush (Ns Flush) (04/02/17 03:15) Troponin I (04/02/17 03:06) Shoulder, Complete (>2vws) (04/02/17 ) Knee, Complete (4vws) (04/02/17 ) Ice/Cold Pack (04/02/17 03:06) Blood Gas Venous (Vbg) (04/02/17 03:06) Insulin Human Regular Inj (Novolin R Inj (04/02/17 04:00) Calcium Gluconate Inj (Calcium Gluconate (04/02/17 04:45) Sodium Bicarbonate 8.4% Inj (Sodium Bica (04/02/17 04:45) Sodium Bicarbonate 8.4% Inj (Sodium Bica (04/02/17 04:55) Admit Order (Ed Use Only) (04/02/17 ) ^ Saline Lock (04/02/17 04:56) Resp Oxygen Yoel C Titrat 1-4 L (04/02/17 ) Notify Dr: Other (04/02/17 04:56) Sodium Chloride 0.9% Flush (Ns Flush) (04/02/17 09:00) Sodium Chloride 0.9% Flush (Ns Flush) (04/02/17 05:00) Labs Laboratory Tests Test 04/02/17 03:32 04/02/17 03:35 Blood Gas Puncture Site R.N. DRAW Blood Gas Patient Temperature 98.6 Venous Blood pH 7.31 Venous Blood Partial Pressure CO2 39 mmHg Venous Blood Partial Pressure O2 36 mmHg Venous Blood HCO3 19 mmol/L Venous Blood Oxygen Saturation 58 % Venous Blood Oxygen Content 9.7 Vol % Venous Blood Base Excess -6.2 mmol/L Oxygen Delivery Device ROOM AIR Blood Gas Inspired Oxygen 21 % White Blood Count 7.9 TH/MM3 Red Blood Count 3.88 MIL/MM3 Hemoglobin 11.8 GM/DL Hematocrit 37.7 % Mean Corpuscular Volume 97.1 FL Mean Corpuscular Hemoglobin 30.4 PG Mean Corpuscular Hemoglobin Concent 31.3 % Red Cell Distribution Width 16.5 % Platelet Count 146 TH/MM3 Mean Platelet Volume 9.1 FL Neutrophils (%) (Auto) 85.8 % Lymphocytes (%) (Auto) 9.8 % Monocytes (%) (Auto) 3.0 % Eosinophils (%) (Auto) 0.0 % Basophils (%) (Auto) 1.4 % Neutrophils # (Auto) 6.7 TH/MM3 Lymphocytes # (Auto) 0.8 TH/MM3 Monocytes # (Auto) 0.2 TH/MM3 Eosinophils # (Auto) 0.0 TH/MM3 Basophils # (Auto) 0.1 TH/MM3 CBC Comment DIFF FINAL Differential Comment Urine Color LIGHT-YELLOW Urine Turbidity CLEAR Urine pH 7.0 Urine Specific [place] 1.013 Urine Protein 100 mg/dL Urine Glucose (UA) 1000 mg/dL Urine Ketones NEG mg/dL Urine Occult Blood TRACE Urine Nitrite NEG Urine Bilirubin NEG Urine Urobilinogen LESS THAN 2.0 MG/DL Urine Leukocyte Esterase NEG Urine WBC LESS THAN 1 /hpf Microscopic Urinalysis Comment CULT NOT INDICATED Blood Urea Nitrogen 66 MG/DL Creatinine 8.49 MG/DL Random Glucose 725 MG/DL Total Protein 6.8 GM/DL Albumin 3.2 GM/DL Calcium Level 7.9 MG/DL Magnesium Level 2.4 MG/DL Alkaline Phosphatase 153 U/L Aspartate Amino Transf (AST/SGOT) 28 U/L Alanine Aminotransferase (ALT/SGPT) 53 U/L Total Bilirubin 0.4 MG/DL Sodium Level 127 MEQ/L Potassium Level 7.5 MEQ/L Chloride Level 94 MEQ/L Carbon Dioxide Level 20.8 MEQ/L Anion Gap 12 MEQ/L Estimat Glomerular Filtration Rate 8 ML/MIN Lactic Acid Level 2.7 mmol/L Troponin I 0.02 NG/ML B-Hydroxybutyrate 0.18 MMOL/L [facility] Medical Decision Making Medical Screen Exam Complete: Yes Emergency Medical Condition: Yes Medical Record Reviewed: Yes Interpretation(s) EKG normal sinus rhythm rate 63 prominent T waves no acute ST elevation or injury pattern change noted QS septally age-indeterminate Differential Diagnosis generalized weakness, uncontrolled diabetes, DKA, hyperosmolar nonketotic hyperglycemia, dehydration, arrhythmia, shoulder sprain strain contusion fracture dislocation, knee sprain strain contusion fracture dislocation, ACS electrolyte disturbance Narrative Course IV access obtained specimens collected and sent for resulting patient given a bolus of normal saline and weight based regular insulin 7 units IV Venous pH is 7.31 consistent with metabolic acidosis Patient given additional IV fluids and metabolic panel pending next line EKG performed shows peaked T waves concerning for hyperkalemia CBC with automated differential grossly within normal limits; metabolic panel remarkable for potassium of 7.5 consistent with peaked T waves. In creatinine 66/8.49 respectively creatinine is slowly improved from January admission serum glucose is 725 with a minimally decreased bicarbonate of 20.8 and a normal anion gap of 12; lactic acid is elevated at 2.7; serum acetone is 0.18 not elevated and urinalysis shows glucosuria without ketonuria patient presents with metabolic acidosis from lactic acidosis without evidence of diabetic ketoacidosis with hyperosmolar nonketotic hyperglycemia. Patient's case discussed with on-call stain sprayer for admission patient has received insulin IV normal saline bolus and sodium bicarbonate along with calcium gluconate IV. Call placed to commercial credit reviewer is aware of patient's hyperkalemia hyperglycemia and is a hemodialysis patient patient receiving hemodialysis Tuesdays and Saturdays with dialysis due today. Critical Care Narrative Aggregate critical care time was 30 minutes. Time to perform other separately billable procedures was not included in the critical care time. My time did not include minutes spent treating any other patients simultaneously or on activities that did not directly contribute to the patient's treatment. The services I provided to this patient were to treat and/or prevent clinically significant deterioration that could result in: Arrhythmia, cardiac arrest, I provided critical care services requiring my management, as noted below: Chart data review, documentation time, medication orders and management, vital sign assessments/reviewing monitor data, ordering and reviewing lab tests, ordering and interpreting/reviewing x-rays and diagnostic studies, care of the patient and discussion of the patient with the admitting physicians. Physician Communication Physician Communication discussed with Dr Treviño; discussed with Dr Sosa Diagnosis Primary Impression: Generalized weakness Additional Impressions: Hyperkalemia Diabetic hyperosmolar non-ketotic state Lactic acidosis Admitting Information Admitting Physician Requests: Admit Susie Samson MD Apr 02, 2017 04:25
[2017-04-02 04:26] LABS: POTASSIUM 7.5 MEQ/L (3.5-5.1)
[2017-04-02] MEDS ORDERED: CALCIUM GLUCONATE INJ 1 GM in DEXTROSE 5% IN WATER 100ML INJ 100 ML IV ONE ×2 (04:45)
[2017-04-02] MEDS ORDERED: SODIUM BICARBONATE 8.4% INJ 50 MEQ/50 ML SYR IV PUSH ONE (04:45)
[2017-04-02] MEDS ORDERED: SODIUM BICARBONATE 8.4% INJ 50 MEQ/50 ML SYR ONE ×2 (04:55→05:10)
[2017-04-02] MEDS ORDERED: PILL SPLITTER OTHER PRN (05:15)
[2017-04-02] MEDS ORDERED: MAGNESIUM HYDROXIDE SUSP 30 ML CUP PO PRN (05:15)
[2017-04-02] MEDS ORDERED: SENNOSIDES 8.6 MG TAB PO PRN (05:15)
[2017-04-02] MEDS ORDERED: RESP: ALBUTEROL 2.5 MG/IPRATROPIUM 0.5 MG NEB (PRN) INH (05:15)
[2017-04-02] MEDS ORDERED: CHLORHEXIDINE GLUCONATE 2 % 1 PACK (2 CLOTHS) TOP PRN (05:15)
[2017-04-02] MEDS ORDERED: MISC INFORMATION OTHER ONE (05:15)
[2017-04-02] MEDS ORDERED: INSULIN REGULAR (IV INFUSION) 100 UNITS in SODIUM CHLORIDE 0.9% INJ 99 ML IV SCH (05:15)
[2017-04-02] MEDS ORDERED: LACTULOSE SYRUP 20 GM/30 ML CUP PO PRN (05:15)
[2017-04-02] MEDS ORDERED: BISACODYL 10 MG SUPP RECTAL PRN (05:15)
[2017-04-02] MEDS ORDERED: MISCELLANEOUS NURSING INFORMATION XX SCH (05:15)
[2017-04-02] MEDS ORDERED: DEXTROSE 50% IN WATER 50 ML VIAL(D50) IV PUSH PRN ×2 (05:15→14:15)
[2017-04-02] MEDS ORDERED: ACETAMINOPHEN 325 MG TAB PO PRN ×2 (05:15→06:15)
[2017-04-02] MEDS ORDERED: ZOLPIDEM TARTRATE 5 MG TAB PO PRN (05:15)
[2017-04-02] MEDS ORDERED: ONDANSETRON HCL 4 MG/2 ML VIAL IV PRN ×2 (05:15→06:15)
[2017-04-02] MEDS ORDERED: SODIUM CHLORIDE 0.9% FLUSH 10 ML FLUSH PRN (05:15)
--- NOTE | 2017-04-02 05:37 | HHI.HP ---
HPI Service Critical Care Medicine Primary Care Physician No Primary Care Physician Admission Diagnosis metabolic acidosis; hyperkalemia; hyperosmolar-hyperglycemia; HD Diagnosis: Travel History International Travel<30 Days: No Contact w/Intl Traveler <30 Da: No Traveled to Known Affected Are: No History of Present Illness 61-year-old male with history of insulin-dependent diabetes and previous peritoneal dialysis, currently receiving hemodialysis Tuesdays and Saturdays. Patient presents today by EMS transport as he had gotten up out of bed to go to the bathroom and fell. He has injured his right shoulder and his right knee. Patient states he did not hit his head did not have loss of consciousness did not injure his neck did not injure his back did not injure his chest or chest wall did not injure his abdomen did not injure his left arm or left leg or pelvis. Patient denies back pain. He complains of generalized weakness. In the emergency department his labs were found to have potassium at the level of 7.5 and glucose 750. Review of Systems Constitutional: COMPLAINS OF: Fatigue, Dizziness, DENIES: Diaphoretic episodes , Fever, Weight gain, Weight loss, Chills, Change in appetite, Night Sweats Endocrine: DENIES: Heat/cold intolerance, Polydipsia, Polyuria, Polyphagia Eyes: DENIES: Blurred vision, Diplopia, Eye inflammation, Eye pain, Vision loss , Photosensitivity, Double Vision Ears, nose, mouth, throat: DENIES: Tinnitus, Hearing loss, Vertigo, Nasal discharge, Oral lesions, Throat pain, Hoarseness, Ear Pain, Running Nose, Epistaxis, Sinus Pain, Toothache, Odynophagia Respiratory: DENIES: Apneas, Cough, Snoring, Wheezing, Hemoptysis, Sputum production, Shortness of breath Cardiovascular: DENIES: Chest pain, Palpitations, Syncope, Dyspnea on Exertion , PND, Lower Extremity Edema, Orthopnea, Claudication Gastrointestinal: DENIES: Abdominal pain, Black stools, Bloody stools, Constipation, Diarrhea, Nausea, Vomiting, Difficulty Swallowing, Anorexia Genitourinary: DENIES: Sexual dysfunction, Urinary frequency, Urinary incontinence, Urgency, Hematuria, Dysuria, Nocturia, Penile Discharge, Testicular Pain, Testicular Swelling Musculoskeletal: DENIES: Joint pain, Muscle aches, Stiffness, Joint Swelling, Back pain, Neck pain Integumentary: DENIES: Abnormal pigmentation, Nail changes, Pruritus, Rash Hematologic/lymphatic: DENIES: Bruising, Lymphadenopathy Immunologic/allergic: DENIES: Eczema, Urticaria Neurologic: DENIES: Abnormal gait, Headache, Localized weakness, Paresthesias, Seizures, Speech Problems, Tremor, Poor Balance Psychiatric: DENIES: Anxiety, Confusion, Mood changes, Depression, Hallucinations, Agitation, Suicidal Ideation, Homicidal Ideation, Delusions Past Family Social History Allergies: Coded Allergies: aspirin (Unverified Allergy, Unknown, 04/02/17) HEP C Past Medical History Hypertension ESRD Hepatitis C (has never been on therapy for it, states he acquired from his who is now ) Diabetes mellitus Chronic low back pain COPD Past Surgical History Laparoscopic assisted peritoneal dialysis catheter placement 10/24 (Dr. Chris) Reported Medications Reported Meds & Active Scripts Active Metoprolol Tartrate 25 Mg Tab 12.5 Mg PO Q12HR Gnp Vitamin B-1 (Thiamine HCl) 100 Mg Tab 100 Mg PO DAILY Senna Plus 8.6-50 mg (Sennosides-Docusate Sodium) 1 Tab Tab 1 Tab PO BID Pantoprazole (Pantoprazole Sodium) 40 Mg Tab 40 Mg PO DAILY Levemir Inj (Insulin Detemir) 1,000 unit/ 10 ML Vial 7 Units SQ DAILY Levemir Inj (Insulin Detemir) 1,000 unit/ 10 ML Vial 5 Units SQ HS Catapres (Clonidine) 0.1 Mg Tab 0.1 Mg PO TID Trueresult Blood Glucose (Device) System Kit 1 Kit .ROUTE DIRECTED Carefine Pen [place] 31G X 6 mm 1 Mis Mis 1 Ea .ROUTE DIRECTED Novolog Flexpen Inj (Insulin Aspart) 300 Unit/3 Ml Pen 1 Units SQ ACHS SLIDING SCALE blood sugar <150 do not give insulin. blood sugar 150-180 give 2 units of insulin before meals. blood sugar 181-200 give 3 units of insulin before meals. blood sugar 201 and above give 4 units of insulin before meals. Calcium Acetate (Calcium Acetate (Phosphate Bin) 667 Mg Cap 667 Mg PO TID Norvasc (Amlodipine Besylate) 5 Mg Tab 5 Mg PO BID Reported Calcitriol 0.25 Mcg Cap 0.25 Mcg PO DAILY Active Ordered Medications Current Medications Medications (Trade) Dose Ordered Sig/Issac Route PRN Reason Start Time Stop Time Status Last Admin Dose Admin Calcium Gluconate 1 gm/Dextrose 110 ml @ 110 mls/hr ONCE ONCE IV 04/02/17 04:45 04/02/17 05:44 04/02/17 04:57 Amlodipine Besylate (Norvasc) 5 mg BID PO 04/02/17 09:00 Calcitriol (Rocaltrol) 0.25 mcg DAILY PO 04/02/17 09:00 Calcium Acetate (Phoslo) 667 mg TIDAC PO 04/02/17 08:00 Clonidine (Catapres) 0.1 mg TID PO 04/02/17 09:00 Metoprolol Tartrate (Lopressor) 12.5 mg Q12HR PO 04/02/17 09:00 Pantoprazole Sodium (Protonix) 40 mg DAILY PO 04/02/17 09:00 Senna/Docusate Sodium (Jessica-Colace) 1 tab BID PO 04/02/17 09:00 Thiamine HCl (Vitamin B1) 100 mg DAILY PO 04/02/17 09:00 Insulin Human Regular 100 units/ Sodium Chloride 100 ml @ 0 mls/hr TITRATE IV 04/02/17 05:15 Dextrose (D50w (Vial) Inj) 50 ml UNSCH PRN IV PUSH SEE LABEL COMMENTS 04/02/17 05:15 Sodium Chloride 1,000 ml @ 184 mls/hr Q5H27M IV 04/02/17 05:07 Sodium Chloride (NS Flush) 2 ml UNSCH PRN .XX FLUSH AFTER USING IV ACCESS 04/02/17 05:15 Sodium Chloride (NS Flush) 2 ml BID .XX 04/02/17 09:00 Acetaminophen (Tylenol) 650 mg Q6H PRN PO PAIN 1-10 AND/OR FEVER >101F 04/02/17 05:15 Famotidine (Pepcid Inj) 10 mg Q12HR IV PUSH 04/02/17 09:00 Ondansetron HCl (Zofran Inj) 4 mg Q6H PRN IV NAUSEA OR VOMITING 04/02/17 05:15 Zolpidem Tartrate (Ambien) 5 mg HS PRN PO INSOMNIA 04/02/17 05:15 Albuterol/ Ipratropium (Duoneb Neb) 1 ampule Q2HR NEB PRN INH WHEEZING 04/02/17 05:15 Heparin Sodium (Porcine) (Heparin Inj) 5,000 units Q12H SQ 04/02/17 06:00 Miscellaneous Information 1 Q361D XX 04/02/17 05:15 Chlorhexidine Gluconate (Chlorhexidine 2% Cloth) 3 pack Taper DAILY@04 TOP 04/03/17 04:00 03/30/18 03:59 Chlorhexidine Gluconate (Chlorhexidine 2% Cloth) 3 pack UNSCH PRN TOP HYGIENIC CARE 04/02/17 05:15 Magnesium Hydroxide (Milk Of Magnesia Liq) 30 ml Q12H PRN PO MILD - MODERATE CONSTIPATION 04/02/17 05:15 Sennosides (Senokot) 17.2 mg Q12H PRN PO MODERATE - SEVERE CONSTIPATION 04/02/17 05:15 Bisacodyl (Dulcolax Supp) 10 mg DAILY PRN RECTAL SEVERE CONSITIPATION 04/02/17 05:15 Lactulose (Lactulose Liq) 30 ml DAILY PRN PO SEVERE CONSITIPATION 04/02/17 05:15 Miscellaneous (Pill Splitter) 1 ea UNSCH PRN OTHER SEE LABEL COMMENTS 04/02/17 05:15 Sodium Chloride 1,000 ml @ 999 mls/hr BOLUS ONCE IV 04/02/17 05:15 04/02/17 06:15 Sodium Chloride 1,000 ml @ 999 mls/hr BOLUS ONCE IV 04/02/17 05:15 04/02/17 06:15 Family History Mother had diabetes and of myocardial infarction at age 87 Father at age 98 of natural causes Social History Smoking half pack of cigarettes per day since age 15 Denies use of alcohol Occasionally uses medical marijuana is He is on disability due to chronic low back pain Physical Exam Vital Signs Vital Signs Date Time Temp Pulse Resp B/P (MAP) Pulse Ox O2 Delivery O2 Flow Rate FiO2 04/02/17 05:00 21 04/02/17 03:41 18 98 Room Air 04/02/17 01:47 98.0 61 18 132/79 (96) 100 Physical Exam GENERAL: Well-nourished, well-developed patient. SKIN: Warm and dry. HEAD: Normocephalic. EYES: No scleral icterus. No injection or drainage. NECK: Supple, trachea midline. No JVD or lymphadenopathy. CARDIOVASCULAR: Regular rate and rhythm without murmurs, gallops, or rubs. RESPIRATORY: Breath sounds equal bilaterally. No accessory muscle use. GASTROINTESTINAL: Abdomen soft, non-tender, nondistended. MUSCULOSKELETAL: No cyanosis, or edema. Pain in the right knee and shoulder BACK: Nontender without obvious deformity. NEURO EXAM: GCS: M 6 V 5 E 4 Mental Status: The patient is alert and oriented to person, place, and time with normal speech. Cranial Nerves: Visual acuity intact bilaterally. Visual alcazar normal in all quadrants. Pupils are round, reactive to light. Extraocular movements are intact without ptosis. Hearing is normal bilaterally. Voice is normal. Tongue protrudes midline and moves symmetrically. Reflexes: Biceps, patellar, and Achilles are 2/4 bilaterally. No clonus. Sensation: Sensation is intact bilaterally to pain and light touch. Two-point discrimination is intact. Motor: Good muscle tone. Strength is 5/5 bilaterally. Cerebellar: [id number] and [id number] test normal bilaterally. Laboratory Laboratory Tests Test 04/02/17 03:32 04/02/17 03:35 Blood Gas Puncture Site R.N. DRAW Blood Gas Patient Temperature 98.6 Venous Blood pH 7.31 Venous Blood Partial Pressure CO2 39 Venous Blood Partial Pressure O2 36 Venous Blood HCO3 19 Venous Blood Oxygen Saturation 58 Venous Blood Oxygen Content 9.7 Venous Blood Base Excess -6.2 Oxygen Delivery Device ROOM AIR Blood Gas Inspired Oxygen 21 White Blood Count 7.9 Red Blood Count 3.88 Hemoglobin 11.8 Hematocrit 37.7 Mean Corpuscular Volume 97.1 Mean Corpuscular Hemoglobin 30.4 Mean Corpuscular Hemoglobin Concent 31.3 Red Cell Distribution Width 16.5 Platelet Count 146 Mean Platelet Volume 9.1 Neutrophils (%) (Auto) 85.8 Lymphocytes (%) (Auto) 9.8 Monocytes (%) (Auto) 3.0 Eosinophils (%) (Auto) 0.0 Basophils (%) (Auto) 1.4 Neutrophils # (Auto) 6.7 Lymphocytes # (Auto) 0.8 Monocytes # (Auto) 0.2 Eosinophils # (Auto) 0.0 Basophils # (Auto) 0.1 CBC Comment DIFF FINAL Differential Comment Urine Color LIGHT-YELLOW Urine Turbidity CLEAR Urine pH 7.0 Urine Specific [place] 1.013 Urine Protein 100 Urine Glucose (UA) 1000 Urine Ketones NEG Urine Occult Blood TRACE Urine Nitrite NEG Urine Bilirubin NEG Urine Urobilinogen LESS THAN 2.0 Urine Leukocyte Esterase NEG Urine WBC LESS THAN 1 Microscopic Urinalysis Comment CULT NOT INDICATED Blood Urea Nitrogen 66 Creatinine 8.49 Random Glucose 725 Total Protein 6.8 Albumin 3.2 Calcium Level 7.9 Magnesium Level 2.4 Alkaline Phosphatase 153 Aspartate Amino Transf (AST/SGOT) 28 Alanine Aminotransferase (ALT/SGPT) 53 Total Bilirubin 0.4 Sodium Level 127 Potassium Level 7.5 Chloride Level 94 Carbon Dioxide Level 20.8 Anion Gap 12 Estimat Glomerular Filtration Rate 8 Lactic Acid Level 2.7 Troponin I 0.02 B-Hydroxybutyrate 0.18 Result Diagram: 04/02/17 0335 04/02/17 0335 Imaging Last 24 hours Impressions Chest X-Ray 04/02/17 0306 Signed Impressions: Service Date/Time: March 03:31 - CONCLUSION: 1. Right central line in superior vena cava. No acute findings. Marcello Disla MD Shoulder X-Ray 04/02/17 0000 Signed Impressions: Service Date/Time: March 03:32 - CONCLUSION: 1. No acute fracture. Accessory ossicle at a.c. joint. Marcello Disla MD Knee X-Ray 04/02/17 0000 Signed Impressions: Service Date/Time: March 03:34 - CONCLUSION: 1. No acute bony abnormalities. Mild osteoarthritis. Probable small osteochondroma extending from medial posterior tibia. MD Xin Fernandez VTE Risk Assessment Caprini VTE Risk Assessment: Mod/High Risk (score >= 2) Caprini Risk Assessment Model Point Value = 1 Point Value = 2 Point Value = 3 Point Value = 5 Age 41-60 Minor surgery BMI > 25 kg/m2 Swollen legs Varicose veins or History of unexplained or recurrent spontaneous Oral contraceptives or hormone replacement Sepsis (< 1 month) Serious lung disease, including pneumonia (< 1 month) Abnormal pulmonary function Acute myocardial infarction Congestive heart failure (< 1 month) History of inflammatory bowel disease Medical patient at bed rest Age 61-74 Arthroscopic surgery Major open surgery (> 45 min) Laparoscopic surgery (> 45 min) Malignancy Confined to bed (> 72 hours) Immobilizing plaster cast Central venous access Age >= 75 History of VTE Family history of VTE Factor V Leiden Prothrombin [id number] Lupus anticoagulant Anticardiolipin antibodies Elevated serum homocysteine Heparin-induced thrombocytopenia Other congenital or acquired thrombophilia Stroke (< 1 month) Elective arthroplasty Hip, pelvis, or leg fracture Acute spinal cord injury (< 1 month) Prophylaxis Regimen Total Risk Factor Score Risk Level Prophylaxis Regimen 0-1 Low Early ambulation 2 Moderate Order ONE of the following: *Sequential Compression Device (SCD) *Heparin 5000 units SQ BID 3-4 Higher Order ONE of the following medications: *Heparin 5000 units SQ TID *Enoxaparin/Lovenox 40 mg SQ daily (WT < 150 kg, CrCl > 30 mL/min) *Enoxaparin/Lovenox 30 mg SQ daily (WT < 150 kg, CrCl > 10-29 mL/min) *Enoxaparin/Lovenox 30 mg SQ BID (WT < 150 kg, CrCl > 30 mL/min) AND/OR *Sequential Compression Device (SCD) 5 or more Highest Order ONE of the following medications: *Heparin 5000 units SQ TID (Preferred with Epidurals) *Enoxaparin/Lovenox 40 mg SQ daily (WT < 150 kg, CrCl > 30 mL/min) *Enoxaparin/Lovenox 30 mg SQ daily (WT < 150 kg, CrCl > 10-29 mL/min) *Enoxaparin/Lovenox 30 mg SQ BID (WT < 150 kg, CrCl > 30 mL/min) AND *Sequential Compression Device (SCD) Assessment and Plan Assessment and Plan Hyperglycemia - Insulin drip - IV fluid resuscitation - Transition to subcutaneous insulin sliding scale when indicated Hypertension - Continue home meds Norvasc and metoprolol ESRD - Emergent Hemodialysis due to severe hyperkalemia - Nephrology consult Dr. Sosa Chronic low back pain - Oxycodone when necessary COPD - No exacerbation - No indication for steroids - DuoNeb's as needed DVT GI prophylaxis - Teds SCDs - Subcutaneous heparin and Pepcid Critical Care: The total critical care time was 35 minutes. Time to perform other separately billable procedures was not included in the critical care time. Jacek Treviño MD Apr 02, 2017 05:37
[2017-04-02] MEDS: HEPARIN SODIUM - SQ 10,000 UNITS/ML VIAL SQ SCH ×2 (06:11→17:52)
[2017-04-02] MEDS ORDERED: SODIUM CHLOR 0.9% 1000 ML INJ 1,000 ML OTHER PRN ×2 (06:12)
[2017-04-02] MEDS ORDERED: SODIUM CHLOR 0.9% 1000 ML INJ 1,000 ML IV PRN (06:12)
[2017-04-02] MEDS ORDERED: ALBUMIN HUMAN 25% 25 GM/100 ML BAGP IV PRN (06:15)
[2017-04-02] MEDS ORDERED: HEPARIN SODIUM - IV 10,000 UNITS/10 ML VIAL PRN (06:15)
[2017-04-02] MEDS ORDERED: NITROGLYCERIN 0.4 MG SL 25 TABS/BTL SL PRN (06:15)
[2017-04-02] MEDS ORDERED: cloNIDine HCL 0.1 MG TAB PO PRN (06:15)
[2017-04-02] MEDS ORDERED: EPOETIN ALFA 10,000 UNITS/ML VIAL IV PRN (06:15)
[2017-04-02] MEDS ORDERED: diphenhydrAMINE HCL 25 MG CAP PO PRN (06:15)
[2017-04-02] MEDS ORDERED: GELATIN 12 MM/7 MM FOAM TOP PRN (06:15)
[2017-04-02] MEDS ORDERED: HEPARIN SODIUM - IV 10,000 UNITS/10 ML VIAL IVF PRN (06:15)
[2017-04-02] MEDS ORDERED: MANNITOL 12.5 GM/50 ML VIAL IV PRN (06:15)
[2017-04-02] MEDS ORDERED: SODIUM CHLORIDE 0.9% FLUSH 10 ML FLUSH IV FLUSH PRN (06:15)
[2017-04-02] MEDS ORDERED: GENTAMICIN SULFATE (DIALYSIS USE ONLY) 20 MG/2 ML VIAL IV PRN (06:15)
[2017-04-02] MEDS: CALCIUM ACETATE 667 MG CAP PO SCH ×3 (08:00→17:00)
--- NOTE | 2017-04-02 08:19 | EKG ---
Date Performed: 04/02/2017 Time Performed: 03:50:25 PTAGE: 61 years EKG: Sinus rhythm WITH MARKED SINUS ARRHYTHMIA BORDERLINE LEFT AXIS DEVIATION BORDERLINE ECG PREVIOUS TRACING : 01/22/2017 21.27 Compared to previous tracing, T wave amplitude has increase d in the anteroseptal leads. DOCTOR: Koffi Zayas Interpretating Date/Time 04/02/2017 08:18:30
[2017-04-02] MEDS: SODIUM CHLORIDE 0.9% FLUSH 10 ML FLUSH SCH ×2 (09:00→21:02)
[2017-04-02] MEDS ORDERED: SODIUM CHLORIDE 0.9% FLUSH 10 ML FLUSH IV FLUSH SCH (09:00)
[2017-04-02] MEDS: DOCUSATE SODIUM 50 MG/SENNA 8.6 MG TAB PO SCH ×2 (09:00→21:01)
[2017-04-02] MEDS ORDERED: DOCUSATE SODIUM 50 MG/SENNA 8.6 MG TAB PO SCH (09:00)
[2017-04-02] MEDS: SODIUM CHLOR 0.9% 1000 ML INJ 1,000 ML IV SCH ×2 (10:05→16:01)
--- NOTE | 2017-04-02 10:28 | PD.CONS ---
HPI Service Nephrology Consult Requested By Dr. Treviño Reason for Consult ESRD with hyperkalemia Primary Care Physician No Primary Care Physician History of Present Illness Patient is a 61-year-old male who has end-stage renal disease, insulin-dependent diabetes, hypertension, converted to hemodialysis after failing peritoneal dialysis he was seen on Thursday was feeling fine however, yesterday he said that he woke up and was trying to go to the bathroom and fell injuring his right knee and right shoulder he did not lose any consciousness he was brought to the emergency for checkup and found to have hyperkalemia potassium was 7.5 and his blood sugar was 725, he was given calcium gluconate, sodium bicarbonate, insulin and was transferred to intensive care unit. He is awake and responsive, he states that his right knee hurts otherwise he was having some diarrhea prior to admission, denies any fever or chills. Review of Systems Constitutional: COMPLAINS OF: Fatigue Gastrointestinal: COMPLAINS OF: Diarrhea Musculoskeletal: COMPLAINS OF: Joint pain, Muscle aches Psychiatric: COMPLAINS OF: Anxiety Past Family Social History Allergies: Coded Allergies: aspirin (Unverified Allergy, Unknown, 04/02/17) HEP C Past Medical History ESRD Hypertension Insulin-dependent diabetes History of anemia Secondary hyperparathyroidism History of fevers of unknown origin during last admission Removal of Tenckhoff catheter after which he will stop, likely he had subclinical peritonitis from poor technique Past Surgical History Tenckhoff catheter placement and removal He has a venous catheter AV fistula Reported Medications Reported Meds & Active Scripts Active Metoprolol Tartrate 25 Mg Tab 12.5 Mg PO Q12HR Gnp Vitamin B-1 (Thiamine HCl) 100 Mg Tab 100 Mg PO DAILY Senna Plus 8.6-50 mg (Sennosides-Docusate Sodium) 1 Tab Tab 1 Tab PO BID Pantoprazole (Pantoprazole Sodium) 40 Mg Tab 40 Mg PO DAILY Levemir Inj (Insulin Detemir) 1,000 unit/ 10 ML Vial 7 Units SQ DAILY Levemir Inj (Insulin Detemir) 1,000 unit/ 10 ML Vial 5 Units SQ HS Catapres (Clonidine) 0.1 Mg Tab 0.1 Mg PO TID Trueresult Blood Glucose (Device) System Kit 1 Kit .ROUTE DIRECTED Carefine Pen [place] 31G X 6 mm 1 Mis Mis 1 Ea .ROUTE DIRECTED Novolog Flexpen Inj (Insulin Aspart) 300 Unit/3 Ml Pen 1 Units SQ ACHS SLIDING SCALE blood sugar <150 do not give insulin. blood sugar 150-180 give 2 units of insulin before meals. blood sugar 181-200 give 3 units of insulin before meals. blood sugar 201 and above give 4 units of insulin before meals. Calcium Acetate (Calcium Acetate (Phosphate Bin) 667 Mg Cap 667 Mg PO TID Norvasc (Amlodipine Besylate) 5 Mg Tab 5 Mg PO BID Reported Calcitriol 0.25 Mcg Cap 0.25 Mcg PO DAILY Active Ordered Medications Current Medications Medications (Trade) Dose Ordered Sig/Issac Route Start Time Stop Time Status Last Admin (Norvasc) 5 mg BID PO 04/02/17 09:00 (Rocaltrol) 0.25 mcg DAILY PO 04/02/17 09:00 (Phoslo) 667 mg TIDAC PO 04/02/17 08:00 (Catapres) 0.1 mg TID PO 04/02/17 09:00 (Lopressor) 12.5 mg Q12HR PO 04/02/17 09:00 (Protonix) 40 mg DAILY PO 04/02/17 09:00 (Jessica-Colace) 1 tab BID PO 04/02/17 09:00 (Vitamin B1) 100 mg DAILY PO 04/02/17 09:00 Insulin Human Regular 100 units/ Sodium Chloride 100 ml @ 0 mls/hr TITRATE IV 04/02/17 05:15 04/02/17 06:42 (D50w (Vial) Inj) 50 ml UNSCH PRN IV PUSH 04/02/17 05:15 Sodium Chloride 1,000 ml @ 184 mls/hr Q5H27M IV 04/02/17 05:07 (NS Flush) 2 ml UNSCH PRN .XX 04/02/17 05:15 (NS Flush) 2 ml BID .XX 04/02/17 09:00 (Tylenol) 650 mg Q6H PRN PO 04/02/17 05:15 (Pepcid Inj) 10 mg Q12HR IV PUSH 04/02/17 09:00 (Zofran Inj) 4 mg Q6H PRN IV 04/02/17 05:15 (Ambien) 5 mg HS PRN PO 04/02/17 05:15 (Duoneb Neb) 1 ampule Q2HR NEB PRN INH 04/02/17 05:15 (Heparin Inj) 5,000 units Q12H SQ 04/02/17 06:00 04/02/17 06:11 Miscellaneous Information 1 Q361D XX 04/02/17 05:15 (Chlorhexidine 2% Cloth) 3 pack Taper DAILY@04 TOP 04/03/17 04:00 03/30/18 03:59 (Chlorhexidine 2% Cloth) 3 pack UNSCH PRN TOP 04/02/17 05:15 (Milk Of Magnesia Liq) 30 ml Q12H PRN PO 04/02/17 05:15 (Senokot) 17.2 mg Q12H PRN PO 04/02/17 05:15 (Dulcolax Supp) 10 mg DAILY PRN RECTAL 04/02/17 05:15 (Lactulose Liq) 30 ml DAILY PRN PO 04/02/17 05:15 (Pill Splitter) 1 ea UNSCH PRN OTHER 04/02/17 05:15 Sodium Chloride 1,000 ml @ 0 mls/hr Q0M PRN OTHER 04/02/17 06:12 (Heparin Inj) 8,000 units UNSCH PRN IVF 04/02/17 06:15 Sodium Chloride 1,000 ml @ 200 mls/hr Q5H PRN IV 04/02/17 06:12 Sodium Chloride 1,000 ml @ 0 mls/hr Q0M PRN OTHER 04/02/17 06:12 (Mannitol Inj) 12.5 gm UNSCH PRN IV 04/02/17 06:15 (Albumin 25% Inj) 25 gm UNSCH PRN IV 04/02/17 06:15 (NS Flush) 5 ml UNSCH PRN IV FLUSH 04/02/17 06:15 (Heparin Inj) UNSCH PRN .XX 04/02/17 06:15 (Gentamicin (Dialysis) Inj) 20 mg UNSCH PRN IV 04/02/17 06:15 (Zofran Inj) 4 mg UNSCH PRN IV 04/02/17 06:15 (Tylenol) 650 mg UNSCH PRN PO 04/02/17 06:15 (Benadryl) 25 mg UNSCH PRN PO 04/02/17 06:15 (Nitrostat Sl) 0.4 mg UNSCH PRN SL 04/02/17 06:15 (Catapres) 0.1 mg UNSCH PRN PO 04/02/17 06:15 (Epogen Inj) 2,000 units UNSCH PRN IV 04/02/17 06:15 (Gelfoam 12 Mm/7 Mm Top) 1 foam UNSCH PRN TOP 04/02/17 06:15 Family History Noncontributory Social History He currently denies smoking or alcohol use Physical Exam Vital Signs Vital Signs Date Time Temp Pulse Resp B/P (MAP) Pulse Ox O2 Delivery O2 Flow Rate FiO2 04/02/17 09:33 100 Nasal Cannula 1.50 04/02/17 06:03 04/02/17 06:00 70 04/02/17 06:00 98.2 70 10 160/84 (109) 97 04/02/17 05:54 97.9 74 16 158/80 (106) 99 04/02/17 05:00 62 18 171/84 (113) 97 Room Air 04/02/17 05:00 21 04/02/17 04:00 68 18 158/79 (105) 97 Room Air 04/02/17 03:41 18 98 Room Air 04/02/17 02:45 64 18 148/76 (100) 98 Room Air 04/02/17 01:47 98.0 61 18 132/79 (96) 100 Physical Exam GENERAL: Well-nourished, well-developed patient. SKIN: Warm and dry. HEAD: Normocephalic. EYES: No scleral icterus. No injection or drainage. NECK: Supple, trachea midline. No JVD or lymphadenopathy. CARDIOVASCULAR: Regular rate and rhythm without murmurs, gallops, or rubs. RESPIRATORY: Breath sounds equal bilaterally. No accessory muscle use. GASTROINTESTINAL: Abdomen soft, non-tender, nondistended. EXTREMITIES: No cyanosis, or edema. Right knee hurt NEUROLOGICAL: Awake, alert, and oriented x 3. Non-focal. Laboratory Laboratory Tests Test 04/02/17 03:32 04/02/17 03:35 04/02/17 05:54 04/02/17 07:09 Blood Gas Puncture Site R.N. DRAW Blood Gas Patient Temperature 98.6 Venous Blood pH 7.31 Venous Blood Partial Pressure CO2 39 Venous Blood Partial Pressure O2 36 Venous Blood HCO3 19 Venous Blood Oxygen Saturation 58 Venous Blood Oxygen Content 9.7 Venous Blood Base Excess -6.2 Oxygen Delivery Device ROOM AIR Blood Gas Inspired Oxygen 21 White Blood Count 7.9 Red Blood Count 3.88 Hemoglobin 11.8 Hematocrit 37.7 Mean Corpuscular Volume 97.1 Mean Corpuscular Hemoglobin 30.4 Mean Corpuscular Hemoglobin Concent 31.3 Red Cell Distribution Width 16.5 Platelet Count 146 Mean Platelet Volume 9.1 Neutrophils (%) (Auto) 85.8 Lymphocytes (%) (Auto) 9.8 Monocytes (%) (Auto) 3.0 Eosinophils (%) (Auto) 0.0 Basophils (%) (Auto) 1.4 Neutrophils # (Auto) 6.7 Lymphocytes # (Auto) 0.8 Monocytes # (Auto) 0.2 Eosinophils # (Auto) 0.0 Basophils # (Auto) 0.1 CBC Comment DIFF FINAL Differential Comment Urine Color LIGHT-YELLOW Urine Turbidity CLEAR Urine pH 7.0 Urine Specific [place] 1.013 Urine Protein 100 Urine Glucose (UA) 1000 Urine Ketones NEG Urine Occult Blood TRACE Urine Nitrite NEG Urine Bilirubin NEG Urine Urobilinogen LESS THAN 2.0 Urine Leukocyte Esterase NEG Urine WBC LESS THAN 1 Microscopic Urinalysis Comment CULT NOT INDICATED Blood Urea Nitrogen 66 Creatinine 8.49 Random Glucose 725 470 Total Protein 6.8 Albumin 3.2 Calcium Level 7.9 Magnesium Level 2.4 Alkaline Phosphatase 153 Aspartate Amino Transf (AST/SGOT) 28 Alanine Aminotransferase (ALT/SGPT) 53 Total Bilirubin 0.4 Sodium Level 127 Potassium Level 7.5 Chloride Level 94 Carbon Dioxide Level 20.8 Anion Gap 12 Estimat Glomerular Filtration Rate 8 Lactic Acid Level 2.7 Troponin I 0.02 B-Hydroxybutyrate 0.18 Nasal Screen MRSA (PCR) MRSA NOT DETECTED Result Diagram: 04/02/17 0335 04/02/17 0709 Imaging Last Impressions Chest X-Ray 04/02/17 0306 Signed Impressions: Service Date/Time: March 03:31 - CONCLUSION: 1. Right central line in superior vena cava. No acute findings. Marcello Disla MD Shoulder X-Ray 04/02/17 0000 Signed Impressions: Service Date/Time: March 03:32 - CONCLUSION: 1. No acute fracture. Accessory ossicle at a.c. joint. Marcello Disla MD Knee X-Ray 04/02/17 0000 Signed Impressions: Service Date/Time: March 03:34 - CONCLUSION: 1. No acute bony abnormalities. Mild osteoarthritis. Probable small osteochondroma extending from medial posterior tibia. Marcello Disla MD Assessment and Plan Problem List: (1) ESRD (end stage renal disease) ICD Codes: N18.6 - End stage renal disease Status: Chronic Plan: Receiving during hemodialysis on 1K bath, repeat BMP is pending we will continue to monitor his labs blood glucose levels are better after insulin, he needs reeducation on treatment of his diabetes, patient remains unreliable although he claims he has taken his insulin yesterday. (2) Hyperkalemia ICD Codes: E87.5 - Hyperkalemia Status: Resolved Plan: Initially treated with calcium, insulin and sodium bicarbonate He is seen during hemodialysis and doing well (3) Diabetes mellitus ICD Codes: E11.9 - Type 2 diabetes mellitus without complications Status: Acute Plan: He has severe hyperglycemia uncontrolled diabetes needs education (4) Lactic acidosis ICD Codes: E87.2 - Acidosis Status: Acute Plan: he is being followed in critical care Ned Sosa MD Apr 02, 2017 10:28
[2017-04-02] MEDS: cloNIDine HCL 0.1 MG TAB PO SCH ×3 (13:00→17:52)
[2017-04-02] MEDS: FAMOTIDINE 20 MG/2 ML VIAL IV PUSH SCH ×2 (13:56→21:02)
[2017-04-02] MEDS: amLODIPine BESYLATE 5 MG TAB PO SCH ×2 (13:57→21:01)
[2017-04-02] MEDS: PANTOPRAZOLE SOD 40 MG DELAYED RELEASE TAB PO SCH (13:57)
[2017-04-02] MEDS: CALCITRIOL 0.25 MCG CAP PO SCH (13:57)
[2017-04-02] MEDS: THIAMINE HCL 100 MG TAB PO SCH (13:57)
[2017-04-02] MEDS: METOPROLOL TARTRATE 25 MG TAB PO SCH ×2 (13:57→21:01)
[2017-04-02] MEDS: INSULIN NovoLIN REGULAR SUPPLEMENTAL SCALE SQ SCH ×2 (16:00→20:00)
[2017-04-02 18:03] LABS: BICARBONATE 26.3 MEQ/L (21.0-32.0); POTASSIUM 4.2 MEQ/L (3.5-5.1)
[2017-04-02 18:23] LABS: CALCIUM-PROTEIN CORRECTED 7.9 MG/DL (8.5-10.1)
[2017-04-02] MEDS ORDERED: INSULIN DETEMIR 100 UNITS/ML VIAL SQ SCH (21:00)
[2017-04-03] VITALS: BP 134/81; PULSE 81; RESP 17; TEMP 98.3; O2SAT 99
[2017-04-03] MEDS: INSULIN NovoLIN REGULAR SUPPLEMENTAL SCALE SQ SCH ×5 (00:11→16:00)
[2017-04-03 04:00] VITALS: BP 127/81; PULSE 77; RESP 18; TEMP 97.3; O2SAT 100
[2017-04-03] MEDS ORDERED: CHLORHEXIDINE GLUCONATE 2 % 1 PACK (2 CLOTHS) TOP SCH (04:00)
[2017-04-03 04:45] LABS: AUTOMATED NEUTROPHIL # 5.4 TH/MM3 (1.8-7.7); BASOPHIL # 0.1 TH/MM3 (0-0.2); BASOPHIL % 0.9 % (0.0-2.0); EOSINOPHIL % 0.5 % (0.0-4.0); HEMATOCRIT 33.5 % (39.0-51.0); HEMO FLAGS DIFF FINAL; LYMPH % 28.4 % (9.0-44.0); LYMPHOCYTE # 2.5 TH/MM3 (1.0-4.8); MEAN CELL VOLUME 92.8 FL (80.0-100.0); MEAN CORPUSCULAR HEMOGLOBIN 30.2 PG (27.0-34.0); MEAN CORPUSCULAR HGB CONC 32.6 % (32.0-36.0); MONO % 7.7 % (0.0-8.0); NEUT % 62.5 % (16.0-70.0); PLATELET COUNT 133 TH/MM3 (150-450); RED BLOOD COUNT 3.61 MIL/MM3 (4.50-5.90); RED CELL DISTRIBUTION WIDTH 16.3 % (11.6-17.2); WHITE BLOOD COUNT 8.6 TH/MM3 (4.0-11.0)
[2017-04-03 05:20] LABS: BICARBONATE 27.3 MEQ/L (21.0-32.0); CALCIUM-PROTEIN CORRECTED 8.2 MG/DL (8.5-10.1); POTASSIUM 4.2 MEQ/L (3.5-5.1); TOTAL BILIRUBIN ADULT 0.3 MG/DL (0.2-1.0)
[2017-04-03] MEDS: HEPARIN SODIUM - SQ 10,000 UNITS/ML VIAL SQ SCH ×3 (05:50→16:17)
[2017-04-03 08:00] VITALS: BP 145/88; PULSE 73; RESP 18; TEMP 97.2; O2SAT 100
[2017-04-03] MEDS: CALCIUM ACETATE 667 MG CAP PO SCH ×3 (08:01→16:15)
[2017-04-03] MEDS: DOCUSATE SODIUM 50 MG/SENNA 8.6 MG TAB PO SCH (09:00)
[2017-04-03] MEDS ORDERED: INSULIN DETEMIR 100 UNITS/ML VIAL SQ SCH (09:00)
[2017-04-03] MEDS: SODIUM CHLORIDE 0.9% FLUSH 10 ML FLUSH SCH (09:07)
[2017-04-03] MEDS: FAMOTIDINE 20 MG/2 ML VIAL IV PUSH SCH (09:08)
[2017-04-03] MEDS: METOPROLOL TARTRATE 25 MG TAB PO SCH (09:08)
[2017-04-03] MEDS: cloNIDine HCL 0.1 MG TAB PO SCH ×3 (09:08→16:15)
[2017-04-03] MEDS: PANTOPRAZOLE SOD 40 MG DELAYED RELEASE TAB PO SCH (09:09)
[2017-04-03] MEDS: CALCITRIOL 0.25 MCG CAP PO SCH (09:09)
[2017-04-03] MEDS: amLODIPine BESYLATE 5 MG TAB PO SCH (09:09)
[2017-04-03] MEDS: THIAMINE HCL 100 MG TAB PO SCH (09:10)
--- NOTE | 2017-04-03 10:51 | HHI.PR ---
Subjective Remarks Follow-up hyperglycemia/hyperkalemia 04/03/17-patient seen and examined, denies any acute event, no chest pain or shortness of breath. Currently normoglycemic. Hyperkalemia resolved. Patient claims, is very compliant with medical care and treatment of diabetes. Objective Vitals Vital Signs Date Time Temp Pulse Resp B/P (MAP) Pulse Ox O2 Delivery O2 Flow Rate FiO2 04/03/17 08:00 97.2 73 18 145/88 (107) 100 04/03/17 04:00 97.3 77 18 127/81 (96) 100 04/03/17 00:00 98.3 81 17 134/81 (98) 99 04/02/17 22:00 79 04/02/17 20:13 99 04/02/17 20:00 84 04/02/17 19:00 98.6 90 21 123/74 (90) 99 04/02/17 18:00 94 04/02/17 16:00 84 04/02/17 15:00 78 04/02/17 15:00 97.4 78 19 165/86 (112) 100 04/02/17 14:00 79 04/02/17 12:00 80 04/02/17 11:00 97.7 79 15 144/82 (102) 100 I/O 04/02/17 04/02/17 04/02/17 04/03/17 04/03/17 04/03/17 07:00 15:00 23:00 07:00 15:00 23:00 Intake Total 1110 ml 37 ml 680 ml 240 ml 240 ml Output Total 3000 ml 0 ml 200 ml Balance 1110 ml -2963 ml 680 ml 40 ml 240 ml Intake Oral 250 ml 240 ml 240 ml IV Total 1110 ml 37 ml 430 ml Output Urine Total 200 ml Stool Total 0 ml Hemodialysis 3000 ml Result Diagram: 04/03/17 0426 04/03/17 0426 Imaging Last Impressions Chest X-Ray 04/02/17 0306 Signed Impressions: Service Date/Time: March 03:31 - CONCLUSION: 1. Right central line in superior vena cava. No acute findings. Marcello Disla MD Shoulder X-Ray 04/02/17 0000 Signed Impressions: Service Date/Time: March 03:32 - CONCLUSION: 1. No acute fracture. Accessory ossicle at a.c. joint. Marcello Disla MD Knee X-Ray 04/02/17 0000 Signed Impressions: Service Date/Time: March 03:34 - CONCLUSION: 1. No acute bony abnormalities. Mild osteoarthritis. Probable small osteochondroma extending from medial posterior tibia. Marcello Disla MD Objective Remarks GENERAL: NAD SKIN: Warm and dry. HEAD: Normocephalic. EYES: No scleral icterus. No injection or drainage. NECK: Supple, trachea midline. No JVD or lymphadenopathy. CARDIOVASCULAR: Regular rate and rhythm without murmurs, gallops, or rubs. RESPIRATORY: Breath sounds equal bilaterally. No accessory muscle use. GASTROINTESTINAL: Abdomen soft, non-tender, nondistended. MUSCULOSKELETAL: No cyanosis, or edema. BACK: Nontender without obvious deformity. No CVA tenderness. Procedures none A/P Problem List: (1) ESRD on hemodialysis ICD Code: N18.6 - End stage renal disease; Z99.2 - Dependence on renal dialysis (2) Hyperglycemia due to type 2 diabetes mellitus ICD Code: E11.65 - Type 2 diabetes mellitus with hyperglycemia (3) Hyperkalemia ICD Code: E87.5 - Hyperkalemia Status: Resolved Assessment and Plan 61-year-old man with Hyperglycemia due to type 2 diabetes Resolved status post treatment with Insulin drip as well as IV fluid resuscitation Diabetes type 2 Currently on Levemir 7 units a.m., and 5 units at bedtime as well as sliding scale insulin Will consult museum educator nurse prior to discharge Hypertension Normotensive on Norvasc and metoprolol ESRD Patient had Emergent Hemodialysis due to severe hyperkalemia Chronic low back pain Continue Oxycodone when necessary COPD-no exacerbation Stable DuoNeb's as needed DVT GI prophylaxis - Teds SCDs - Subcutaneous heparin and Pepcid Juan Rose MD Apr 03, 2017 10:51
[2017-04-03] MEDS ORDERED: LEVEMIR SQ ×2 (10:57)
--- NOTE | 2017-04-03 11:00 | HHI.DS ---
Discharge Summary Admission Date Apr 02, 2017 at 04:59 Discharge Date: Apr 03, 2017 Admitting Diagnosis metabolic acidosis; hyperkalemia; hyperosmolar-hyperglycemia; HD (1) ESRD on hemodialysis ICD Code: N18.6 - End stage renal disease; Z99.2 - Dependence on renal dialysis (2) Hyperglycemia due to type 2 diabetes mellitus ICD Code: E11.65 - Type 2 diabetes mellitus with hyperglycemia (3) Hyperkalemia ICD Code: E87.5 - Hyperkalemia Status: Resolved Procedures none Brief History - From Admission 61-year-old male with history of insulin-dependent diabetes and previous peritoneal dialysis, currently receiving hemodialysis Tuesdays and Saturdays. Patient presents today by EMS transport as he had gotten up out of bed to go to the bathroom and fell. He has injured his right shoulder and his right knee. Patient states he did not hit his head did not have loss of consciousness did not injure his neck did not injure his back did not injure his chest or chest wall did not injure his abdomen did not injure his left arm or left leg or pelvis. Patient denies back pain. He complains of generalized weakness. In the emergency department his labs were found to have potassium at the level of 7.5 and glucose 750. CBC/BMP: 04/03/17 0426 04/03/17 0426 Significant Findings Laboratory Tests Test 04/02/17 03:32 04/02/17 03:35 04/02/17 05:54 04/02/17 07:09 Venous Blood pH 7.31 (7.360-7.400) Venous Blood Partial Pressure CO2 39 mmHg (44-48) Venous Blood HCO3 19 mmol/L (22-26) Venous Blood Oxygen Saturation 58 % (70-76) Venous Blood Base Excess -6.2 mmol/L (-2-2) Red Blood Count 3.88 MIL/MM3 (4.50-5.90) Hemoglobin 11.8 GM/DL (13.0-17.0) Hematocrit 37.7 % (39.0-51.0) Mean Corpuscular Hemoglobin Concent 31.3 % (32.0-36.0) Platelet Count 146 TH/MM3 (150-450) Neutrophils (%) (Auto) 85.8 % (16.0-70.0) Lymphocytes # (Auto) 0.8 TH/MM3 (1.0-4.8) Urine Protein 100 mg/dL (NEG-TRACE) Urine Glucose (UA) 1000 mg/dL (NEG) Urine Occult Blood TRACE (NEG) Blood Urea Nitrogen 66 MG/DL (7-18) Creatinine 8.49 MG/DL (0.60-1.30) Random Glucose 725 MG/DL (74-106) 470 MG/DL (74-106) Albumin 3.2 GM/DL (3.4-5.0) Calcium Level 7.9 MG/DL (8.5-10.1) Alkaline Phosphatase 153 U/L (45-117) Sodium Level 127 MEQ/L (136-145) Potassium Level 7.5 MEQ/L (3.5-5.1) Chloride Level 94 MEQ/L (98-107) Carbon Dioxide Level 20.8 MEQ/L (21.0-32.0) Estimat Glomerular Filtration Rate 8 ML/MIN (>89) Lactic Acid Level 2.7 mmol/L (0.4-2.0) Test 04/02/17 10:28 04/02/17 17:22 04/03/17 04:26 Blood Urea Nitrogen 29 MG/DL (7-18) 40 MG/DL (7-18) Creatinine 4.68 MG/DL (0.60-1.30) 5.66 MG/DL (0.60-1.30) Random Glucose 155 MG/DL (74-106) 113 MG/DL (74-106) Total Protein 5.7 GM/DL (6.4-8.2) 5.4 GM/DL (6.4-8.2) Calcium Level 7.2 MG/DL (8.5-10.1) 7.3 MG/DL (8.5-10.1) Estimat Glomerular Filtration Rate 15 ML/MIN (>89) 12 ML/MIN (>89) Protein Corrected Calcium 7.9 MG/DL (8.5-10.1) 8.2 MG/DL (8.5-10.1) Red Blood Count 3.61 MIL/MM3 (4.50-5.90) Hemoglobin 10.9 GM/DL (13.0-17.0) Hematocrit 33.5 % (39.0-51.0) Platelet Count 133 TH/MM3 (150-450) Albumin 2.5 GM/DL (3.4-5.0) Phosphorus Level 5.9 MG/DL (2.5-4.9) Alkaline Phosphatase 140 U/L (45-117) Aspartate Amino Transf (AST/SGOT) 48 U/L (15-37) PE at Discharge GENERAL: NAD SKIN: Warm and dry. HEAD: Normocephalic. EYES: No scleral icterus. No injection or drainage. NECK: Supple, trachea midline. No JVD or lymphadenopathy. CARDIOVASCULAR: Regular rate and rhythm without murmurs, gallops, or rubs. RESPIRATORY: Breath sounds equal bilaterally. No accessory muscle use. GASTROINTESTINAL: Abdomen soft, non-tender, nondistended. MUSCULOSKELETAL: No cyanosis, or edema. BACK: Nontender without obvious deformity. No CVA tenderness. Hospital Course Patient admitted secondary to hyperglycemia due to diabetes for which he was treated with IV insulin and aggressive IV fluid resuscitation. He was subsequently switched to his basal insulin with monitoring of blood glucose. Nephrology was consulted and patient underwent emergent hemodialysis secondary to hyperkalemia. Renal function improved. He was continued on his treatment for other chronic medical condition including hypertensions. DVT and GI prophylaxis were provided. Prior to discharge, patient's condition improved and vitals remained stable. Pt Condition on Discharge: Stable Discharge Disposition: Discharge Home Discharge Time: <= 30 minutes Discharge Instructions DIET: Follow Instructions for: Diabetic Diet Activities you can perform: Regular-No Restrictions Follow up Referrals: Nephrology PCP Follow-up - 1 Week New Medications: Insulin Detemir Inj (Levemir Inj) 1,000 unit/ 10 ML Vial 7 UNITS SQ DAILY for Blood Sugar Management, #30 INJECTION Do not mix with any other Insulin. Continued Medications: Amlodipine (Norvasc) 5 Mg Tab 5 MG PO BID, #60 TAB 0 Refills Calcitriol (Calcitriol) 0.25 Mcg Cap 0.25 MCG PO DAILY for Calcium Supplement, #30 CAP 0 Refills Calcium Acetate (Phosphate Bin (Calcium Acetate) 667 Mg Cap 667 MG PO TID, #90 CAP 0 Refills Clonidine (Catapres) 0.1 Mg Tab 0.1 MG PO TID for Blood Pressure Management, #90 TAB Insulin Aspart Inj (Novolog Flexpen Inj) 300 Unit/3 Ml Pen 1 UNITS SQ ACHS SLIDING SCALE for Blood Sugar Management, #1 PEN 0 Refills blood sugar <150 do not give insulin. blood sugar 150-180 give 2 units of insulin before meals. blood sugar 181-200 give 3 units of insulin before meals. blood sugar 201 and above give 4 units of insulin before meals. Insulin Detemir Inj (Levemir Inj) 1,000 unit/ 10 ML Vial 5 UNITS SQ HS for Blood Sugar Management, #30 INJECTION (This prescription has been renewed) Metoprolol Tartrate (Metoprolol Tartrate) 25 Mg Tab 12.5 MG PO Q12HR for Regulate Heart Beat, #60 TAB Pantoprazole (Pantoprazole) 40 Mg Tab 40 MG PO DAILY for Manage Heartburn, #30 TAB Sennosides-Docusate Sodium (Senna Plus 8.6-50 mg) 1 Tab Tab 1 TAB PO BID for Prevent Constipation, #60 TAB Discontinued Medications: Insulin Detemir Inj (Levemir Inj) 1,000 unit/ 10 ML Vial 7 UNITS SQ DAILY for Blood Sugar Management, #30 INJECTION Thiamine HCl (Gnp Vitamin B-1) 100 Mg Tab 100 MG PO DAILY for Alcohol Detox, #30 TAB Juan Rose MD Apr 03, 2017 11:00
[2017-04-03 12:00] VITALS: BP 121/80; PULSE 77; RESP 18; TEMP 97.8; O2SAT 99
--- NOTE | 2017-04-03 12:28 | HHI.NPPN ---
Subjective History of Present Illness 61 year old BM with ESRD uncontrolled DM Objective Data Data 04/03/17 04/04/17 19:00 07:00 Intake Total 240 ml Balance 240 ml Intake Oral 240 ml Vital Signs Date Time Temp Pulse Resp B/P (MAP) Pulse Ox O2 Delivery O2 Flow Rate FiO2 04/03/17 12:00 97.8 77 18 121/80 (94) 99 04/03/17 08:00 97.2 73 18 145/88 (107) 100 04/03/17 04:00 97.3 77 18 127/81 (96) 100 04/03/17 00:00 98.3 81 17 134/81 (98) 99 04/02/17 22:00 79 04/02/17 20:13 99 04/02/17 20:00 84 04/02/17 19:00 98.6 90 21 123/74 (90) 99 04/02/17 18:00 94 04/02/17 16:00 84 04/02/17 15:00 78 04/02/17 15:00 97.4 78 19 165/86 (112) 100 04/02/17 14:00 79 -: 04/03/17 0426 04/03/17 0426 Physical Exam General Appearance: Well Developed Pulmonary Resp Exam: Clear Bilaterally Cardiology CV Exam: Regular, Normal Sinus Rhythm Gastrointestinal/Abdomen GI Exam: Soft, Bowel Sounds Present Extremeties Extremities Exam: No Edema Assessment/Plan Problem List: (1) ESRD (end stage renal disease) ICD Codes: N18.6 - End stage renal disease Status: Chronic Plan: patient is on dialysis he will need more supervision as not able to do exactly what he is been told [facility] to continue HD TTS (2) Hyperkalemia ICD Codes: E87.5 - Hyperkalemia Status: Resolved Plan: RESOLVED (3) Diabetes mellitus ICD Codes: E11.9 - Type 2 diabetes mellitus without complications Status: Acute Plan: He has severe hyperglycemia uncontrolled diabetes needs education (4) Lactic acidosis ICD Codes: E87.2 - Acidosis Status: Acute Plan: he is being followed in critical care Ned Sosa MD Apr 03, 2017 12:28
--- NOTE | 2017-04-03 12:31 | HHI.FF ---
Face to Face Verification Diagnosis: (1) ESRD on hemodialysis (2) Hyperglycemia due to type 2 diabetes mellitus (3) Diabetes mellitus Physical Therapy Order: Evaluate and Treat, Improve ambulation Occupational Therapy Order: Evaluate and Treat Home Health Nursing Order: Medical education Diabetic education [employer] Teacher Order: To Evaluate: Living conditions/environment I have seen patient John RamirezJr on 04/03/17. My clinical findings support the need for the requested home health care services because: Med compliance is questionable Limited ability to care for self I certify that my clinical findings support that this patient is homebound because: Unsteady gait/balance Need for psychosocial assistance Ned Sosa MD Apr 03, 2017 12:31
[2017-04-03 16:00] VITALS: BP 129/85; PULSE 69; RESP 18; TEMP 97.1; O2SAT 100
== END 2017-04-03 17:25 | disposition home or self-care (01) | DRG 637 ==
LOC: NEPC 01:44 → NEDA 04:59 → HIMN 05:45 → HOCA 22:54
PROVIDERS: ADMIT Hospitalist; ATTEND Hospitalist
PROC: 5A1D60Z (ICD-10-PCS; principal; 2017-04-02)
DX: E11.00 Type 2 diabetes mellitus with hyperosmolarity without nonketotic hyperglycemic-hyperosmolar coma (NKHHC) (principal); N18.6 End stage renal disease; E87.2 Acidosis; N25.81 Secondary hyperparathyroidism of renal origin; I12.0 Hypertensive chronic kidney disease with stage 5 chronic kidney disease or end stage renal disease; I69.351 Hemiplegia and hemiparesis following cerebral infarction affecting right dominant side; E11.22 Type 2 diabetes mellitus with diabetic chronic kidney disease; E87.5 Hyperkalemia; M19.90 Unspecified osteoarthritis, unspecified site; B19.20 Unspecified viral hepatitis C without hepatic coma; Z79.4 Long term (current) use of insulin; Z99.2 Dependence on renal dialysis; F17.210 Nicotine dependence, cigarettes, uncomplicated; J44.9 Chronic obstructive pulmonary disease, unspecified; E11.65 Type 2 diabetes mellitus with hyperglycemia; G89.29 Other chronic pain; M54.5 Low back pain; S49.91XA Unspecified injury of right shoulder and upper arm, initial encounter; S89.91XA Unspecified injury of right lower leg, initial encounter; W06.XXXA Fall from bed, initial encounter; Y93.89 Activity, other specified; Y92.003 Bedroom of unspecified non-institutional (private) residence as the place of occurrence of the external cause; Z83.3 Family history of diabetes mellitus; Z82.49 Family history of ischemic heart disease and other diseases of the circulatory system
CPT/HCPCS: 71010; 73030; 73564; 80048; 80053; 81001; 82010; 82805; 82947; 82948; 83605; 83735; 84100; 84155; 84484; 85025; 87641; 90935; 93005; 96361; 96374; 96375; J0610; J1580; J1644; J1815; J1817; J7030

== ENCOUNTER → 2017-05-08 | Outpatient (CLI) | payer MEDICARE, OTHER ==
[~2017-05-08] MED LIST changes: -GNP100TA3 PO
--- NOTE | 2017-05-08 10:38 | RADRPT ---
EXAM DATE/TIME: 05/08/2017 09:50 [facility] COMPARISON: CHEST PA & LAT, October 29, 2014, 0:56. INDICATIONS : End stage renal disease MEDICAL HISTORY : Hypertension. Chronic obstructive pulmonary disease. Diabetes mellitus type II. Hep C SURGICAL HISTORY : None. ENCOUNTER: Initial ACUITY: 1 day PAIN SCORE: 0/10 LOCATION: Bilateral chest FINDINGS: Dialysis catheter in good position. Lungs are clear, heart and pulmonary vascularity are normal. Po rtion of bony skeleton visualized unremarkable. CONCLUSION: Dialysis catheter, otherwise negative. Edgardo Goldstein MD FACR on May 08, 2017 at 10:15 Board Certified Radiologist. This report was verified electronically.
--- NOTE | 2017-05-08 10:48 | RADRPT ---
EXAM DATE/TIME: 05/08/2017 08:34 [facility] COMPARISON: US KIDNEY/RENAL/BLADDER, October 20, 2016, 18:55. INDICATIONS : End stage renal disease. MEDICAL HISTORY : Arthritis. Hepatitis C. Migraines. Chest pain. HTN. COPD. SURGICAL HISTORY : Peritoneal dialysis. AV fistula left. ENCOUNTER: Initial ACUITY: 1 day PAIN SCORE: 2/10 LOCATION: Bilateral flank MEASUREMENTS: RIGHT KIDNEY: 7.6 x 3.9 x 5.0 cm LEFT KIDNEY: 7.5 x 4.2 x 4.7 cm FINDINGS: RIGHT KIDNEY: Small atrophic in appearance with hyperechoic renal cortex. Small simple appearing cyst in the centra l kidney measuring 8 x 8 x 7 mm. No stones or hydronephrosis. LEFT KIDNEY: Small atrophic in appearance with hyperechoic renal cortex. 2 small simple appearing cysts measuring 1.5 x 1.4 x 1.5 cm in the inferior pole and 2.5 x 2.1 x 2.0 cm in the midpole. No stones or hydroneph rosis. BLADDER: Within normal limits given the degree of distension. CONCLUSION: 1. No evidence for obstructive uropathy. 2. Small atrophic kidneys bilaterally with diffusely increased cortical echogenicity consistent with medical renal disease. 3. Bilateral renal cysts, as above. González Mederos MD on May 08, 2017 at 10:43 Board Certified Radiologist. This report was verified electronically.
== END ==
LOC: HRAD 07:43
PROVIDERS: ATTEND Internal Medicine Hematology & Oncology
DX: N18.6 End stage renal disease (principal)
CPT/HCPCS: 71020; 76775

== ENCOUNTER → 2017-06-24 | Day surgery (SDC) | payer MEDICARE, OTHER ==
[~2017-06-24] MED LIST changes: +CHLORHEXIDINE GLUCONATE 2 % 1 PACK (2 CLOTHS) TOPICAL PRN; +INSULIN HUMAN REGULAR 1,000 UNITS/10 ML VIAL SQ PRN; +LACTATED RINGER'S 1000 ML IV PRN; +METOPROLOL TARTRATE 25 MG TAB PO PRN; +POVIDONE IODINE 5% (ANTISEPSIS KIT) 4 APPLICATIONS EACH NARE PRN; +SODIUM CHLORID 0.9% 500 ML IV PRN
== END | disposition home or self-care (01) ==
LOC: HSDC 08:40
PROVIDERS: ATTEND Surgery
DX: N18.6 End stage renal disease (principal); Z53.8 Procedure and treatment not carried out for other reasons
CPT/HCPCS: 99211; G0463

== ENCOUNTER 2017-08-12 07:05 | Observation (INO) | payer MEDICARE, OTHER ==
[~2017-08-12] VITALS: Ht 170.2 cm; Wt 70.7 kg
[~2017-08-12 07:05] MED LIST changes: -AMLO5 PO; -CHLORHEXIDINE GLUCONATE 2 % 1 PACK (2 CLOTHS) TOPICAL PRN; +CHOL5000 PO; -CLON.1 PO; +CLON0.3T PO; +GENT0.3O5 RIGHT EYE; -INSU-91; -INSULIN HUMAN REGULAR 1,000 UNITS/10 ML VIAL SQ PRN; -LACTATED RINGER'S 1000 ML IV PRN; -METOPROLOL TARTRATE 25 MG TAB PO PRN; -PANT40TA3 PO; -POVIDONE IODINE 5% (ANTISEPSIS KIT) 4 APPLICATIONS EACH NARE PRN; +RANI150T PO; +SEVEL800 PO; -SODIUM CHLORID 0.9% 500 ML IV PRN; -TRUERESULT BLOSYSTEM
[2017-08-12] MEDS ORDERED: METOPROLOL TARTRATE 25 MG TAB ONE (07:32)
--- NOTE | 2017-08-12 07:38 | HHI.HP ---
History of Present Illness Chief Complaint: ESRD, need for AVF History of Present Illness 62 yo male with ESRD s/p L UE brachiobasilic AVF, 1st stage several months ago. Presents for 2nd stage. No hand trouble or arm pain. [facility] HD - last HD yesterday Past/Family/Social History Past Medical History ESRD HTN COPD XOL DM Past Surgical History L BB AVF knee surgery Family History NC Home Medications Active Scripts Insulin Detemir Inj (Levemir Inj) 1,000 unit/ 10 ML Vial, 7 UNITS SQ DAILY for Blood Sugar Management, #30 INJECTION Do not mix with any other Insulin. Prov:Juan Rose MD 04/03/17 Insulin Detemir Inj (Levemir Inj) 1,000 unit/ 10 ML Vial, 5 UNITS SQ HS for Blood Sugar Management, #30 INJECTION Prov:Juan Rose MD 04/03/17 Sennosides-Docusate Sodium (Senna Plus 8.6-50 mg) 1 Tab Tab, 1 TAB PO BID for Prevent Constipation, #60 TAB Prov:Dean Nuñez MD 01/26/17 Insulin Aspart Inj (Novolog Flexpen Inj) 300 Unit/3 Ml Pen, 1 UNITS SQ ACHS SLIDING SCALE for Blood Sugar Management, #1 PEN 0 Refills blood sugar <150 do not give insulin. blood sugar 150-180 give 2 units of insulin before meals. blood sugar 181-200 give 3 units of insulin before meals. blood sugar 201 and above give 4 units of insulin before meals. Prov:Hyun Mcdaniel MD 01/06/17 Calcium Acetate (Phosphate Bin (Calcium Acetate) 667 Mg Cap, 667 MG PO TID, #90 CAP 0 Refills Prov:Kiko Vazquez MD, R3 10/24/16 Reported Medications Sevelamer Carbonate (Renvela) 800 Mg Tab, 800 MG PO BID for Control phosphorous levels, #90 TAB 0 Refills 08/07/17 Clonidine (Clonidine) 0.3 Mg Tab, 0.3 MG PO TID for Blood Pressure Management, # 60 TAB 0 Refills 08/07/17 Ranitidine (Ranitidine) 150 Mg Tab, 150 MG PO TID for Heartburn Management, #60 TAB 0 Refills 08/07/17 Metoprolol Tartrate (Metoprolol Tartrate) 25 Mg Tab, 25 MG PO BID, #60 TAB 0 Refills 08/07/17 Cholecalciferol (Vitamin D3) 5,000 Unit Cap, 5000 UNITS PO DAILY for Nutritional Supplement, #30 CAP 0 Refills 08/07/17 Calcitriol (Calcitriol) 0.25 Mcg Cap, 0.25 MCG PO BID for Calcium Supplement, # 30 CAP 0 Refills 01/15/17 Discontinued Reported Medications Gentamicin Opth Oint (Gentamicin Opth Oint) 0.3% Oint, 1 APPLIC RIGHT EYE DAILY for Infection, #1 TUBE 0 Refills Apply a small amount (1/2) inch to the affected eye(s) 08/07/17 Discontinued Scripts Metoprolol Tartrate (Metoprolol Tartrate) 25 Mg Tab, 12.5 MG PO Q12HR for Regulate Heart Beat, #60 TAB Prov:Dean Nuñez MD 01/27/17 Pantoprazole (Pantoprazole) 40 Mg Tab, 40 MG PO DAILY for Manage Heartburn, #30 TAB Prov:Dean Nuñez MD 01/26/17 Clonidine (Catapres) 0.1 Mg Tab, 0.1 MG PO TID for Blood Pressure Management, # 90 TAB Prov:Dean Nuñez MD 01/26/17 Blood Glucose Monitoring Supply (Trueresult Blood Glucose) System Kit, 1 KIT .ROUTE DIRECTED for Blood Sugar Management, #1 KIT 0 Refills Prov:Hyun Mcdaniel MD 01/06/17 Carefine Pen [place] 31G X 6 mm (Carefine Pen [place] 31G X 6 mm) 1 Mis Mis, 1 EA .ROUTE DIRECTED for Blood Sugar Management, #1 BOX Prov:Hyun Mcdaniel MD 01/06/17 Amlodipine (Norvasc) 5 Mg Tab, 5 MG PO BID, #60 TAB 0 Refills Prov:Kiko Vazquez MD, R3 10/24/16 Coded Allergies: aspirin (Verified Allergy, Severe, Swelling, 08/07/17) HEP C Review of Systems Respiratory: DENIES: Shortness of breath Cardiovascular: DENIES: Chest pain Physical Exam Neuro: alert, oriented HEENT: NC/AT Neck: no JVD Heart: reg rate, no M Lungs: clear B Abdomen: soft, NT Vascular: + thrill L UE palpable radial pulse incision healed nicely Caprini VTE Risk Assessment Caprini VTE Risk Assessment: Mod/High Risk (score >= 2) Caprini Risk Assessment Model Point Value = 1 Point Value = 2 Point Value = 3 Point Value = 5 Age 41-60 Minor surgery BMI > 25 kg/m2 Swollen legs Varicose veins or History of unexplained or recurrent spontaneous Oral contraceptives or hormone replacement Sepsis (< 1 month) Serious lung disease, including pneumonia (< 1 month) Abnormal pulmonary function Acute myocardial infarction Congestive heart failure (< 1 month) History of inflammatory bowel disease Medical patient at bed rest Age 61-74 Arthroscopic surgery Major open surgery (> 45 min) Laparoscopic surgery (> 45 min) Malignancy Confined to bed (> 72 hours) Immobilizing plaster cast Central venous access Age >= 75 History of VTE Family history of VTE Factor V Leiden Prothrombin [id number] Lupus anticoagulant Anticardiolipin antibodies Elevated serum homocysteine Heparin-induced thrombocytopenia Other congenital or acquired thrombophilia Stroke (< 1 month) Elective arthroplasty Hip, pelvis, or leg fracture Acute spinal cord injury (< 1 month) Prophylaxis Regimen Total Risk Factor Score Risk Level Prophylaxis Regimen 0-1 Low Early ambulation 2 Moderate Order ONE of the following: *Sequential Compression Device (SCD) *Heparin 5000 units SQ BID 3-4 Higher Order ONE of the following medications: *Heparin 5000 units SQ TID *Enoxaparin/Lovenox 40 mg SQ daily (WT < 150 kg, CrCl > 30 mL/min) *Enoxaparin/Lovenox 30 mg SQ daily (WT < 150 kg, CrCl > 10-29 mL/min) *Enoxaparin/Lovenox 30 mg SQ BID (WT < 150 kg, CrCl > 30 mL/min) AND/OR *Sequential Compression Device (SCD) 5 or more Highest Order ONE of the following medications: *Heparin 5000 units SQ TID (Preferred with Epidurals) *Enoxaparin/Lovenox 40 mg SQ daily (WT < 150 kg, CrCl > 30 mL/min) *Enoxaparin/Lovenox 30 mg SQ daily (WT < 150 kg, CrCl > 10-29 mL/min) *Enoxaparin/Lovenox 30 mg SQ BID (WT < 150 kg, CrCl > 30 mL/min) AND *Sequential Compression Device (SCD) Assessment and Plan Plan 2nd stage L BB AVF today Operative site marked consent signed All questions answered. Discharge Planning anticipate post-op observation and d/c POD#1 () Jason Fuentes MD Aug 12, 2017 07:38
[2017-08-12] MEDS ORDERED: FAMOTIDINE 20 MG/2 ML VIAL ONE (07:52)
[2017-08-12 07:54] LABS: AUTOMATED NEUTROPHIL # 2.5 TH/MM3 (1.8-7.7); BASOPHIL # 0.1 TH/MM3 (0-0.2); EOSINOPHIL # 0.2 TH/MM3 (0-0.4); EOSINOPHIL % 3.1 % (0.0-4.0); HEMATOCRIT 40.4 % (39.0-51.0); HEMOGLOBIN 13.3 GM/DL (13.0-17.0); LYMPH % 41.5 % (9.0-44.0); LYMPHOCYTE # 2.4 TH/MM3 (1.0-4.8); MEAN PLATELET VOLUME 8.2 FL (7.0-11.0); MONO % 11.5 % (0.0-8.0); MONOCYTE # 0.7 TH/MM3 (0-0.9); NEUT % 42.9 % (16.0-70.0); PLATELET COUNT 173 TH/MM3 (150-450); RED CELL DISTRIBUTION WIDTH 14.6 % (11.6-17.2); WHITE BLOOD COUNT 5.8 TH/MM3 (4.0-11.0)
[2017-08-12] MEDS ORDERED: CHLORHEXIDINE GLUCONATE 2 % 1 PACK (2 CLOTHS) TOPICAL PRN (08:00)
[2017-08-12] MEDS ORDERED: METOPROLOL TARTRATE 25 MG TAB PO PRN (08:00)
[2017-08-12] MEDS ORDERED: SODIUM CHLORID 0.9% 500 ML IV PRN (08:00)
[2017-08-12] MEDS ORDERED: LACTATED RINGER'S 1000 ML IV PRN (08:00)
[2017-08-12] MEDS ORDERED: POVIDONE IODINE 5% (ANTISEPSIS KIT) 4 APPLICATIONS EACH NARE PRN (08:00)
[2017-08-12 08:04] LABS: INTERNATIONAL NORMALIZED RATIO 1.2 RATIO; PROTHROMBIN TIME - PATIENT 11.7 SEC (9.8-11.6)
[2017-08-12 08:10] LABS: BICARBONATE 31.9 MEQ/L (21.0-32.0); CALCIUM 9.2 MG/DL (8.5-10.1); CREATININE 9.78 MG/DL (0.60-1.30)
[2017-08-12] MEDS ORDERED: VANCOMYCIN HCL 1000 MG VIAL ONE (08:13)
[2017-08-12] MEDS ORDERED: PROTAMINE SULFATE 50 MG/5 ML VIAL ONE (08:13)
[2017-08-12] MEDS ORDERED: THROMBIN (TOPICAL) 20,000 UNIT SPRAY KIT ONE (08:13)
[2017-08-12] MEDS ORDERED: HEPARIN SODIUM - IV 10,000 UNITS/10 ML VIAL ONE (08:13)
[2017-08-12] MEDS ORDERED: BUPIVACAINE HCL PF 0.5% 30 ML VIAL ONE (08:13)
[2017-08-12] MEDS ORDERED: HEPARIN-NS/PF INJ 500 ML ONE (08:14)
--- NOTE | 2017-08-12 09:24 | EKG ---
Date Performed: 08/12/2017 Time Performed: 07:44:03 PTAGE: 62 years EKG: Sinus rhythm ST DEVIATION AND MODERATE T-WAVE ABNORMALITY, CONSIDER LATERAL ISCHEMIA ST DEVIATION AND MODERATE T- WAVE ABNORMALITY, CONSIDER INFERIOR ISCHEMIA ABNORMAL ECG PREVIOUS TRACING : 04/02/2017 03.50 DOCTOR: Regis Cote Interpretating Date/Time 08/12/2017 09:24:02
[2017-08-12] MEDS ORDERED: SUGAMMADEX SODIUM 200 MG/2 ML VIAL IV PUSH ONE (09:42)
--- NOTE | 2017-08-12 09:57 | HHI.PR ---
cc: Jason Fuentes MD; Ned Sosa MD Immediate Post Op Note Procedure Date: Aug 12, 2017 Pre Op Diagnosis: ESRD, need for HD access Post Op Diagnosis: ESRD, need for HD access Surgeon: Jason Fuentes Sewer Cleaner(s): Sabrina Romero Procedure: L UE access revision (superficialization) Findings: 5-6mm brachial vein with decent thrill Complications: none Specimen(s) removed: none Estimated blood loss: 50mL Anesthesia: General Drains: None Fluids: 550mL IVF Patient to: PACU Patient Condition: Good Implant/Devices: SEE IMPLANT LOG (if applicable) Date/Time of Procedure: SEE SURGICAL CARE RECORD Jason Fuentes MD Aug 12, 2017 09:57
[2017-08-12] MEDS ORDERED: DO NOT ADM ANY ANTICOAGULANT DRUGS PRN (10:13)
[2017-08-12] MEDS: INSULIN ASPART SUPPLEMENTAL SCALE SQ SCH ×3 (10:20→21:16)
[2017-08-12] MEDS ORDERED: *morphine SULFATE 4 MG/ML PERIprocedure ONLY ONE ×3 (10:24→11:11)
[2017-08-12] MEDS ORDERED: MIDAZOLAM HCL 2 MG/2 ML VIAL ONE (10:25)
[2017-08-12] MEDS ORDERED: HYDROmorphone HCL 2 MG TAB PO PRN (10:30)
[2017-08-12] MEDS ORDERED: DEXTROSE 50% IN WATER 50 ML VIAL(D50) IV PUSH PRN (10:30)
[2017-08-12] MEDS ORDERED: GLUCAGON 1 MG/ML VIAL OTHER PRN (10:30)
[2017-08-12] MEDS ORDERED: SENNOSIDES 8.6 MG TAB PO PRN (10:30)
[2017-08-12] MEDS ORDERED: BISACODYL 10 MG SUPP RECTAL PRN (10:30)
[2017-08-12] MEDS ORDERED: LACTULOSE SYRUP 20 GM/30 ML CUP PO PRN (10:30)
[2017-08-12] MEDS ORDERED: *LABETALOL HCL 100 MG/20 ML VIAL PERIprocedural Use ONLY ONE (10:35)
--- NOTE | 2017-08-12 10:40 | MP ---
cc: JASON FUENTES MD DATE OF SURGERY 08/12/2017 PREOPERATIVE DIAGNOSIS 1. End-stage renal disease, needs dialysis access. 2. Status post left upper extremity AV fistula. POSTOPERATIVE DIAGNOSIS 1. End-stage renal disease, needs dialysis access. 2. Status post left upper extremity AV fistula. PROCEDURE Left extremity access revision. ATTENDING SURGEON Jason Fuentes. MANAGER INTERN SURGEON Sabrina Romero. ANESTHESIA General. INDICATIONS Mr. Ramirez is a 62-year-old gentleman who has end-stage renal disease. He underwent a left brachiobasilic fistula that was actually a brachial artery to brachial vein fistula as the first stage of a planned two-stage procedure. This appears mature by both clinical examination and ultrasound and he is taken to the operating room for second stage to include superficialization. DESCRIPTION OF PROCEDURE Informed consent was obtained from the patient. He was taken to the operating room and placed supine on the operating table. An appropriate timeout was taken to ensure the patient's identity, operative site and planned procedure. Administration of a gram of vancomycin was initiated prior to skin incision and will be discontinued after a single preoperative dose. Vancomycin was chosen because of the patient's end-stage renal disease. Everyone in the room agreed with the timeout and we proceeded. The patient's left arm was prepped and draped and an incision was made over the previous incision, carried down to subcutaneous tissue with electrocautery. The brachial vein was identified. It was embedded in some scar tissue and after this was dissected free back to the anastomosis we then dissected the brachial vein all the way up to the axilla and side branches were ligated with 3-0 silk. The median nerve was carefully mobilized throughout the entire case and protected. Once the brachial vein was sufficiently mobilized hemostasis was achieved in the wound and the deeper tissues were closed with running 2-0 Polysorb. The superficial layers immediately superficial to the transposed fistula were closed with 3-0 Polysorb and 4-0 Monocryl. The sponge and needle counts were correct at the end of the case. I was present and scrubbed and performed the entire procedure. Jason Fuentes MD RJF/BT /10:13 AM /10:17 AM
[2017-08-12] MEDS ORDERED: *ENALAPRILAT 1.25 MG/ML VIAL PERIprocedural Use ONLY ONE (10:59)
[2017-08-12] MEDS ORDERED: MORPHINE SULFATE 2 MG/ML INJ IV PUSH PRN (11:00)
[2017-08-12] MEDS ORDERED: cloNIDine HCL 0.1 MG TAB ONE (11:16)
[2017-08-12] MEDS: cloNIDine HCL 0.3 MG TAB PO SCH ×2 (11:17→17:04)
[2017-08-12] MEDS ORDERED: hydrALAZINE HCL 20 MG/ML VIAL ONE (11:24)
[2017-08-12] MEDS ORDERED: hydrALAZINE HCL 20 MG/ML VIAL IV ONE ×2 (11:24→12:15)
[2017-08-12] MEDS ORDERED: DEXAMETHASONE SOD PHOS 4 MG/ML VIAL IV ONE (12:00)
[2017-08-12] MEDS ORDERED: PHENYLEPH/NS 1000 MCG/10 ML SYR IV ONE (12:00)
[2017-08-12] MEDS ORDERED: PROPOFOL 200 MG/20 ML AMP IV ONE (12:00)
[2017-08-12] MEDS ORDERED: ROCURONIUM INJ 50 MG/5 ML SYRINGE IV PUSH ONE (12:00)
[2017-08-12] MEDS ORDERED: LIDOCAINE HCL 1% PF 5 ML SYRINGE OTHER ONE (12:00)
[2017-08-12] MEDS ORDERED: SODIUM CHLOR 0.9% 250 ML INJ 250 ML IV ONE (12:00)
[2017-08-12] MEDS ORDERED: ONDANSETRON HCL 4 MG/2 ML VIAL IV PUSH ONE (12:00)
[2017-08-12 12:45] VITALS: BP_SYST 162; BP_SYST 192; BP_DIAS 88; BP_DIAS 93; PULSE 81; RESP 17; TEMP 96.6; O2SAT 100
[2017-08-12] MEDS: CALCIUM ACETATE 667 MG CAP PO SCH ×2 (12:49→17:47)
[2017-08-12] MEDS ORDERED: NON-FORMULARY DRUG (Ranitidine 150 MG) PO SCH (13:00)
[2017-08-12] MEDS ORDERED: SODIUM CHLOR 0.9% 1000 ML INJ 1,000 ML IV PRN (15:10)
[2017-08-12] MEDS ORDERED: SODIUM CHLOR 0.9% 1000 ML INJ 1,000 ML OTHER PRN ×2 (15:10)
--- NOTE | 2017-08-12 15:10 | PD.CONS ---
HPI Service Nephrology Consult Requested By Dr. Fuentes Reason for Consult He is referred for end-stage renal disease management Primary Care Physician No Primary Care Physician History of Present Illness Patient is a 62-year-old male with history of hypertension, end -stage renal disease on hemodialysis goes on Thursday and and Thursday , has permacath in place, he denies any chest pain shortness of breath he is admitted to the due to AV fistula second procedure and transposition was carried out without any problems, he moved to [facility] and has hemodialysis on Thursday. Review of Systems Constitutional: COMPLAINS OF: Fatigue Past Family Social History Allergies: Coded Allergies: aspirin (Verified Allergy, Severe, Swelling, 08/12/17) HEP C Past Medical History ESRD Diabetes Hypertension GERD Congestive heart failure CVA Hepatitis C Past Surgical History History of AV fistula Left knee Reported Medications Reported Meds & Active Scripts Active Levemir Inj (Insulin Detemir) 1,000 unit/ 10 ML Vial 7 Units SQ DAILY Do not mix with any other Insulin. Levemir Inj (Insulin Detemir) 1,000 unit/ 10 ML Vial 5 Units SQ HS Senna Plus 8.6-50 mg (Sennosides-Docusate Sodium) 1 Tab Tab 1 Tab PO BID Novolog Flexpen Inj (Insulin Aspart) 300 Unit/3 Ml Pen 1 Units SQ ACHS SLIDING SCALE blood sugar <150 do not give insulin. blood sugar 150-180 give 2 units of insulin before meals. blood sugar 181-200 give 3 units of insulin before meals. blood sugar 201 and above give 4 units of insulin before meals. Calcium Acetate (Calcium Acetate (Phosphate Bin) 667 Mg Cap 667 Mg PO TID Reported Renvela (Sevelamer Carbonate) 800 Mg Tab 800 Mg PO BID Clonidine (Clonidine HCl) 0.3 Mg Tab 0.3 Mg PO TID Ranitidine (Ranitidine HCl) 150 Mg Tab 150 Mg PO TID Metoprolol Tartrate 25 Mg Tab 25 Mg PO BID Vitamin D3 (Cholecalciferol) 5,000 Unit Cap 5,000 Units PO DAILY Calcitriol 0.25 Mcg Cap 0.25 Mcg PO BID Active Ordered Medications Current Medications Medications (Trade) Dose Ordered Sig/Issac Route Start Time Stop Time Status Last Admin Lactated Ringer's 1,000 ml @ 30 mls/hr Q24H PRN IV 08/12/17 08:00 08/15/17 07:59 Sodium Chloride 500 ml @ 30 mls/hr [id number] PRN IV 08/12/17 08:00 08/15/17 07:59 08/12/17 07:40 (Lopressor) 25 mg ANODE REBUILDER PRN PO 08/12/17 08:00 08/15/17 07:59 (Betadine 5% Antisepsis Kit) 1 applic ANODE REBUILDER PRN EACH NARE 08/12/17 08:00 08/15/17 07:59 08/12/17 07:50 (Chlorhexidine 2% Cloth) 3 pack ANODE REBUILDER PRN TOPICAL 08/12/17 08:00 08/15/17 07:59 08/12/17 07:20 (Pepcid) 10 mg BID PO 08/12/17 21:00 (Roxicodone) 5 mg Q4H PRN PO 08/12/17 10:30 (Dilaudid) 2 mg Q4H PRN PO 08/12/17 10:30 08/12/17 12:51 (Morphine Inj) 2 mg Q1H PRN IV PUSH 08/12/17 11:00 (Heparin Inj) 5,000 units Q8H SQ 08/13/17 09:00 (Jessica-Colace) 1 tab BID PO 08/12/17 21:00 (Senokot) 17.2 mg Q12H PRN PO 08/12/17 10:30 (Dulcolax Supp) 10 mg DAILY PRN RECTAL 08/12/17 10:30 (Lactulose Liq) 30 ml DAILY PRN PO 08/12/17 10:30 (D50w (Vial) Inj) 50 ml UNSCH PRN IV PUSH 08/12/17 10:30 (Glucagon Inj) 1 mg UNSCH PRN OTHER 08/12/17 10:30 (NovoLOG SUPPLEMENTAL SCALE) 1 ACHS SLIDING SCALE SQ 08/12/17 12:00 (Rocaltrol) 0.25 mcg BID PO 08/12/17 21:00 (Phoslo) 667 mg TID PO 08/12/17 13:00 08/12/17 12:49 (Vitamin D3) 5,000 units DAILY PO 08/13/17 09:00 (Catapres) 0.3 mg TID PO 1/3/18 13:00 08/12/17 11:17 (Lopressor) 25 mg BID PO 08/12/17 21:00 (Renvela) 800 mg BID PO 08/12/17 21:00 Miscellaneous Information ALL NURSING DEPARTME... UNSCH PRN .XX 08/12/17 10:13 08/13/17 10:12 Family History Noncontributory Social History History of smoking cigarettes Physical Exam Vital Signs Vital Signs Date Time Temp Pulse Resp B/P (MAP) Pulse Ox O2 Delivery O2 Flow Rate FiO2 08/12/17 12:45 96.6 81 17 192/93 (126) 100 162/88 (112) 08/12/17 11:45 98.5 81 12 145/76 (99) 100 Nasal Cannula 2 08/12/17 11:30 80 12 171/80 (110) 100 Nasal Cannula 2 08/12/17 11:22 74 12 196/100 (132) 100 08/12/17 11:15 84 18 186/101 (129) 100 Nasal Cannula 2 08/12/17 11:00 79 13 188/95 (126) 98 Nasal Cannula 2 08/12/17 10:58 78 14 188/93 (124) 100 08/12/17 10:53 76 14 185/87 (119) 100 08/12/17 10:49 79 14 192/95 (127) 100 08/12/17 10:45 74 12 189/90 (123) 100 Nasal Cannula 2 08/12/17 10:42 79 12 211/100 (137) 97 08/12/17 10:35 79 22 211/100 (137) 100 08/12/17 10:32 73 22 219/100 (139) 98 08/12/17 10:30 85 25 191/108 (135) 100 Nasal Cannula 2 08/12/17 10:15 73 22 175/97 (123) 100 Nasal Cannula 2 08/12/17 10:14 97.7 73 22 176/93 (120) 100 Nasal Cannula 2 08/12/17 07:49 98.8 80 18 145/96 (112) 99 Physical Exam GENERAL: Well-nourished, well-developed patient. SKIN: Warm and dry. HEAD: Normocephalic. EYES: No scleral icterus. No injection or drainage. NECK: Supple, trachea midline. No JVD or lymphadenopathy. CARDIOVASCULAR: Regular rate and rhythm without murmurs, gallops, or rubs. RESPIRATORY: Breath sounds equal bilaterally. No accessory muscle use. GASTROINTESTINAL: Abdomen soft, non-tender, nondistended. EXTREMITIES: No cyanosis, or edema. AV fistula left arm with positive thrill NEUROLOGICAL: Awake, alert, and oriented x 3. Non-focal. Laboratory Laboratory Tests Test 08/12/17 07:40 White Blood Count 5.8 Red Blood Count 4.30 Hemoglobin 13.3 Hematocrit 40.4 Mean Corpuscular Volume 94.0 Mean Corpuscular Hemoglobin 31.0 Mean Corpuscular Hemoglobin Concent 33.0 Red Cell Distribution Width 14.6 Platelet Count 173 Mean Platelet Volume 8.2 Neutrophils (%) (Auto) 42.9 Lymphocytes (%) (Auto) 41.5 Monocytes (%) (Auto) 11.5 Eosinophils (%) (Auto) 3.1 Basophils (%) (Auto) 1.0 Neutrophils # (Auto) 2.5 Lymphocytes # (Auto) 2.4 Monocytes # (Auto) 0.7 Eosinophils # (Auto) 0.2 Basophils # (Auto) 0.1 CBC Comment DIFF FINAL Differential Comment Prothrombin Time 11.7 Prothromb Time International Ratio 1.2 Activated Partial Thromboplast Time 24.0 Blood Urea Nitrogen 45 Creatinine 9.78 Random Glucose 102 Calcium Level 9.2 Sodium Level 137 Potassium Level 4.5 Chloride Level 96 Carbon Dioxide Level 31.9 Anion Gap 9 Estimat Glomerular Filtration Rate 7 Result Diagram: 08/12/17 0740 08/12/17 0740 Assessment and Plan Problem List: (1) ESRD on hemodialysis ICD Codes: N18.6 - End stage renal disease; Z99.2 - Dependence on renal dialysis Plan: He is going to receive dialysis tomorrow continue supportive care. Fistula transposition successful continue to monitor Avoid nephrotoxins (2) HTN (hypertension) ICD Codes: I10 - HTN (hypertension) Status: Chronic Plan: Continue to monitor his labile hypertension adjust medication (3) Diabetes mellitus ICD Codes: E11.9 - Type 2 diabetes mellitus without complications Status: Acute Plan: Monitor blood glucose Problem Qualifiers (1) Diabetes mellitus: Ned Sosa MD Aug 12, 2017 15:10
[2017-08-12] MEDS ORDERED: NITROGLYCERIN 0.4 MG SL 25 TABS/BTL SL PRN (15:15)
[2017-08-12] MEDS ORDERED: GENTAMICIN SULFATE (DIALYSIS USE ONLY) 20 MG/2 ML VIAL OTHER PRN (15:15)
[2017-08-12] MEDS ORDERED: EPOETIN ALFA 4,000 UNITS/ML VIAL IV PUSH PRN (15:15)
[2017-08-12] MEDS ORDERED: GELATIN 12 MM/7 MM FOAM TOP PRN (15:15)
[2017-08-12] MEDS ORDERED: cloNIDine HCL 0.1 MG TAB PO PRN (15:15)
[2017-08-12] MEDS ORDERED: ALBUMIN 25% INJ 100 ML IV PRN (15:15)
[2017-08-12] MEDS ORDERED: SODIUM CHLORIDE 0.9% FLUSH 10 ML FLUSH IV FLUSH PRN (15:15)
[2017-08-12] MEDS ORDERED: HEPARIN SODIUM - IV 10,000 UNITS/10 ML VIAL PRN (15:15)
[2017-08-12] MEDS ORDERED: ACETAMINOPHEN 325 MG TAB PO PRN (15:15)
[2017-08-12] MEDS ORDERED: diphenhydrAMINE HCL 25 MG CAP PO PRN (15:15)
[2017-08-12] MEDS ORDERED: HEPARIN SODIUM - IV 10,000 UNITS/10 ML VIAL IV FLUSH PRN (15:15)
[2017-08-12] MEDS ORDERED: ONDANSETRON HCL 4 MG/2 ML VIAL IV PUSH PRN (15:15)
[2017-08-12] MEDS ORDERED: MANNITOL 12.5 GM/50 ML VIAL IV PRN (15:15)
[2017-08-12 16:00] VITALS: BP 150/82; PULSE 87; RESP 16; TEMP 97.1; O2SAT 100
[2017-08-12 20:00] VITALS: BP 114/72; PULSE 89; PULSE 91; RESP 18; TEMP 98.1; O2SAT 98
[2017-08-12 20:11] VITALS: O2SAT 99
[2017-08-12] MEDS: DOCUSATE SODIUM 50 MG/SENNA 8.6 MG TAB PO SCH (21:00)
[2017-08-12] MEDS ORDERED: DOCUSATE SODIUM 50 MG/SENNA 8.6 MG TAB PO SCH (21:00)
[2017-08-12] MEDS: CALCITRIOL 0.25 MCG CAP PO SCH (21:04)
[2017-08-12] MEDS: FAMOTIDINE 20 MG TAB PO SCH (21:04)
[2017-08-12] MEDS: SEVELAMER CARBONATE 800 MG TAB PO SCH (21:04)
[2017-08-12] MEDS: METOPROLOL TARTRATE 25 MG TAB PO SCH (21:05)
[2017-08-13] VITALS: PULSE 82
[2017-08-13 00:39] VITALS: BP 106/67; PULSE 82; RESP 18; TEMP 98.6; O2SAT 99
[2017-08-13 04:00] VITALS: PULSE 84
[2017-08-13 04:10] VITALS: BP 107/70; PULSE 86; RESP 18; TEMP 97.4; O2SAT 97
--- NOTE | 2017-08-13 06:37 | PD.VS.PN ---
Subjective POD #: 1 Procedure(s): L UE access revision (superficialization) Subjective/Hospital Course doing well, no complaints pain controlled Objective Vitals/I&O Date Time Temp Pulse Resp B/P (MAP) Pulse Ox O2 Delivery O2 Flow Rate FiO2 08/13/17 04:10 97.4 86 18 107/70 (82) 97 08/13/17 04:00 84 08/13/17 00:39 98.6 82 18 106/67 (80) 99 08/13/17 00:00 82 08/12/17 20:11 99 21 08/12/17 20:00 98.1 91 18 114/72 (86) 98 08/12/17 20:00 89 08/12/17 16:00 97.1 87 16 150/82 (104) 100 08/12/17 12:45 96.6 81 17 192/93 (126) 100 162/88 (112) 08/12/17 11:45 98.5 81 12 145/76 (99) 100 Nasal Cannula 2 08/12/17 11:30 80 12 171/80 (110) 100 Nasal Cannula 2 08/12/17 11:22 74 12 196/100 (132) 100 08/12/17 11:15 84 18 186/101 (129) 100 Nasal Cannula 2 08/12/17 11:00 79 13 188/95 (126) 98 Nasal Cannula 2 08/12/17 10:58 78 14 188/93 (124) 100 08/12/17 10:53 76 14 185/87 (119) 100 08/12/17 10:49 79 14 192/95 (127) 100 08/12/17 10:45 74 12 189/90 (123) 100 Nasal Cannula 2 08/12/17 10:42 79 12 211/100 (137) 97 08/12/17 10:35 79 22 211/100 (137) 100 08/12/17 10:32 73 22 219/100 (139) 98 08/12/17 10:30 85 25 191/108 (135) 100 Nasal Cannula 2 08/12/17 10:15 73 22 175/97 (123) 100 Nasal Cannula 2 08/12/17 10:14 97.7 73 22 176/93 (120) 100 Nasal Cannula 2 08/12/17 07:49 98.8 80 18 145/96 (112) 99 08/13/17 08/13/17 08/13/17 07:00 15:00 23:00 Output Total 300 ml Balance -300 ml Exam: L UE incision c/d/i + thrill mild edema hand ok Laboratory Laboratory Tests Test 08/12/17 07:40 White Blood Count 5.8 Red Blood Count 4.30 Hemoglobin 13.3 Hematocrit 40.4 Mean Corpuscular Volume 94.0 Mean Corpuscular Hemoglobin 31.0 Mean Corpuscular Hemoglobin Concent 33.0 Red Cell Distribution Width 14.6 Platelet Count 173 Mean Platelet Volume 8.2 Neutrophils (%) (Auto) 42.9 Lymphocytes (%) (Auto) 41.5 Monocytes (%) (Auto) 11.5 Eosinophils (%) (Auto) 3.1 Basophils (%) (Auto) 1.0 Neutrophils # (Auto) 2.5 Lymphocytes # (Auto) 2.4 Monocytes # (Auto) 0.7 Eosinophils # (Auto) 0.2 Basophils # (Auto) 0.1 CBC Comment DIFF FINAL Differential Comment Prothrombin Time 11.7 Prothromb Time International Ratio 1.2 Activated Partial Thromboplast Time 24.0 Blood Urea Nitrogen 45 Creatinine 9.78 Random Glucose 102 Calcium Level 9.2 Sodium Level 137 Potassium Level 4.5 Chloride Level 96 Carbon Dioxide Level 31.9 Anion Gap 9 Estimat Glomerular Filtration Rate 7 Assessment and Plan Plan POD#1 s/p L UE access revision 1. HD this morning 2. D/C after HD 3. RTC 2 weeks Discharge Planning today Jason Fuentes MD Aug 13, 2017 06:37
--- NOTE | 2017-08-13 06:39 | PD.VS.DC ---
Discharge Summary Admission Date: Aug 12, 2017 at 10:24 Discharge Date: Aug 13, 2017 Admission Diagnosis: (1) Renal failure (ARF), acute on chronic (2) ESRD on hemodialysis Discharge Diagnosis: (1) ESRD on hemodialysis ICD Codes: N18.6 - End stage renal disease; Z99.2 - Dependence on renal dialysis Brief History from admission 62 yo male with ESRD s/p L UE brachiobasilic AVF, 1st stage several months ago. Presents for 2nd stage. No hand trouble or arm pain. [facility] HD - last HD Thursday (1 day prior to surgery) Procedure(s): L UE access revision (superficialization) Significant Findings Laboratory Tests Test 1/3/ 07:40 Red Blood Count 4.30 MIL/MM3 (4.50-5.90) Monocytes (%) (Auto) 11.5 % (0.0-8.0) Prothrombin Time 11.7 SEC (9.8-11.6) Activated Partial Thromboplast Time 24.0 SEC (24.3-30.1) Blood Urea Nitrogen 45 MG/DL (7-18) Creatinine 9.78 MG/DL (0.60-1.30) Chloride Level 96 MEQ/L (98-107) Estimat Glomerular Filtration Rate 7 ML/MIN (>89) Hospital Course: The patient tolerated the procedure well. On POD#1 he was feeling well, his pain was controlled with po meds, and he was yuly po. Ready for d/c after HD. Discharge Condition: Good Discharge Disposition: Discharge Home Any questions or concerns: Call [facility] [phone] Jason Fuentes MD Aug 13, 2017 06:39
[2017-08-13] MEDS: INSULIN ASPART SUPPLEMENTAL SCALE SQ SCH ×2 (07:35→12:00)
[2017-08-13] MEDS: cloNIDine HCL 0.3 MG TAB PO SCH (07:40)
[2017-08-13] MEDS: METOPROLOL TARTRATE 25 MG TAB PO SCH ×2 (07:41→12:24)
[2017-08-13 08:00] VITALS: BP 110/69; PULSE 75; PULSE 85; RESP 18; TEMP 97.6; O2SAT 98
[2017-08-13 08:30] LABS: BICARBONATE 30.1 MEQ/L (21.0-32.0); CALCIUM 8.7 MG/DL (8.5-10.1)
[2017-08-13 08:34] LABS: CREATININE 11.82 MG/DL (0.60-1.30)
[2017-08-13] MEDS: FAMOTIDINE 20 MG TAB PO SCH ×2 (08:35→12:20)
[2017-08-13] MEDS: CHOLECALCIFEROL (VIT D3) 5000 UNIT CAP PO SCH ×2 (08:36→12:21)
[2017-08-13] MEDS: DOCUSATE SODIUM 50 MG/SENNA 8.6 MG TAB PO SCH (08:36)
[2017-08-13] MEDS: SEVELAMER CARBONATE 800 MG TAB PO SCH ×2 (08:36→12:21)
[2017-08-13] MEDS: CALCITRIOL 0.25 MCG CAP PO SCH ×2 (08:36→12:21)
[2017-08-13] MEDS: CALCIUM ACETATE 667 MG CAP PO SCH ×2 (08:36→12:20)
[2017-08-13] MEDS: HEPARIN SODIUM - SQ 10,000 UNITS/ML VIAL SQ SCH ×2 (08:37→12:21)
== END 2017-08-13 13:22 | disposition home or self-care (01) ==
LOC: HSDC 07:05 → HSDI 10:24 → N07A 12:25
PROVIDERS: ADMIT Surgery; ATTEND Surgery
DX: E11.22 Type 2 diabetes mellitus with diabetic chronic kidney disease (principal); N18.6 End stage renal disease; I13.2 Hypertensive heart and chronic kidney disease with heart failure and with stage 5 chronic kidney disease, or end stage renal disease; Z49.01 Encounter for fitting and adjustment of extracorporeal dialysis catheter; B19.20 Unspecified viral hepatitis C without hepatic coma; K21.9 Gastro-esophageal reflux disease without esophagitis; I50.9 Heart failure, unspecified; Z86.73 Personal history of transient ischemic attack (TIA), and cerebral infarction without residual deficits; Z79.899 Other long term (current) drug therapy; Z79.4 Long term (current) use of insulin; Z87.891 Personal history of nicotine dependence; R94.31 Abnormal electrocardiogram [ECG] [EKG]
CPT/HCPCS: 01844; 36832; 76937; 80048; 82948; 85025; 85610; 85730; 86850; 86900; 86901; 90935; 93005; 96372; 96374; 96375; G0378; J0360; J1100; J1580; J1644; J1815; J2250; J2270; J2370; J2405; J3010; J3370; J7030; J7040; J7050; Q4081; J2720